=== PATIENT | female | born 1940 | race Caucasian/White ===

== ENCOUNTER → 2019-12-01 15:52 | Outpatient (BNVA) | payer MEDICARE, OTHER, SELFPAY | PROVIDERS: Family Provider Family Medicine; PCP Family Medicine; Visit Provider Family Medicine | DX: E78.00 Pure hypercholesterolemia, unspecified (principal); I10 Essential (primary) hypertension; I48.20 Chronic atrial fibrillation, unspecified; Z00.00 Encounter for general adult medical examination without abnormal findings | CPT/HCPCS: 80053; 80061; 85025 ==

== ENCOUNTER 2020-10-02 00:35 | Emergency (ER) | payer MEDICARE, OTHER, SELFPAY ==
[2020-10-02] VITALS (9 sets, daily range): BP systolic 140–178; BP diastolic 68–98; PULSE 90–149; RESP 17–18; TEMP 36.3–36.7; O2SAT 91–100; BMI 51.9
--- NOTE | 2020-10-02 01:24 | XRR_ITS ---
PROCEDURE INFORMATION: Exam: XR Chest Exam date and time: 10/02/2020 1:28 AM Age: 79 years old Clinical indication: Pain; Patient HX: Palpitations. History of afib. TECHNIQUE: Imaging protocol: XR of the chest. Views: 1 view. COMPARISON: CR Chest 1 [place] [id number] 01/25/2018 12:46 AM FINDINGS: Lungs: Unremarkable. No consolidation. Pleural spaces: Unremarkable. No pleural effusion. No pneumothorax. Heart/Mediastinum: There is mild cardiomegaly. Bones/joints: Unremarkable. XR/XR chest 1V portable [id number] IMPRESSION: Mild cardiomegaly.
[2020-10-02] MEDS: metoprolol tartrate 1 mg/1 mL SDV 5 mL 5 MG IV (01:31)
[2020-10-02 01:35] LABS: Basophils % 0.4 %; Eosinophils # 0.4 10^3/uL (0.0-0.8); Eosinophils % 4.8 %; Hematocrit 39.3 % (37.0-47.0); Hemoglobin 12.2 g/dL (11.5-15.3); Lymphocytes # 2.6 10^3/uL (0.8-4.8); Lymphocytes % 33.5 %; Mean Corpuscular Hemoglobin 32.7 pg (28.0-34.0); Mean Corpuscular Volume 105.4 fL (81-99); Mean Platelet Volume 10.7 fL (7.4-10.4); Monocytes # 0.7 10^3/uL (0.2-0.9); Monocytes % 8.6 %; Neutrophils % 52.3 %; Nucleated Red Blood Cells % 0 %; Platelet Count 180 10^3/cmm (130-400); Red Blood Count 3.73 10^6/uL (4.1-5.3); Red Cell Distribution Width 12.8 % (12.1-15.1); White Blood Count 7.7 10^3/uL (4.0-10.0)
[2020-10-02 01:41] LABS: INR 2.72 (0.8-1.2)
[2020-10-02 01:50] LABS: Troponin(5th) Baseline 27 ng/L (0-10)
[2020-10-02 01:57] LABS: Alanine Aminotransferase 17 U/L (0-33); Albumin Level 4.1 g/dL (3.5-5.2); Alkaline Phosphatase 105 IU/L (35-105); Aspartate Amino Transferase 21 U/L (0-32); Blood Urea Nitrogen 29 mg/dL (8-23); Calcium 8.9 mg/dL (8.5-10.5); Carbon Dioxide 25 mmol/L (22-29); Chloride 101 mmol/L (98-107); Creatine Phosphokinase 47 U/L (26-192); Glucose 123 mg/dL (65-115); NT Pro B Type Natriuretic Pept 1243 pg/mL (0-450); Osmolality Calculated 293 mOsm/kg (285-295); Sodium 138 mmol/L (136-145); Total Bilirubin 0.7 mg/dL (0.15-1.2); Total Protein 7.1 g/dL (6.6-8.7)
[2020-10-02 02:28] LABS: Add Urine Microscopic? YES; Bilirubin Urine Neg (Negative); Blood Urine 2+ (Negative); Glucose Urine UA Norm (Normal); Ketones Urine Negative (Negative); Leukocyte Esterase Urine 2+ (Negative); Nitrate Urine Positive (Negative); Protein Urine Neg (Negative); Specific Gravity, Urine 1.015 (1.005-1.030); Urine Appearance SL Hazy (CLEAR); Urine Color Yellow (Yellow); Urobilinogen Urine Norm (Negative); pH Urine 5 (5-7)
[2020-10-02 02:29] LABS: Add Urine Culture? Yes; Bacteria Urine 3+ /hpf; RBC Urine 0-4 /hpf (0-2); WBC Urine 40-55 /hpf (0-5)
[2020-10-02] MEDS: cefTRIAXone 1,000 MG in sodium chloride 0.9% (plus) 50 ML 100 MG IV (03:35)
[2020-10-02] MEDS: metoprolol tartrate 1 mg/1 mL SDV 5 mL 2.5 MG IV (03:35)
[2020-10-02] MEDS: metoprolol tartrate 50 mg Tablet PO (04:54)
--- NOTE | 2020-10-02 17:28 | ED_ITS ---
HPI - Arrhythmia/Palpitations General: Chief Complaint: Arrhythmia/Palpitations Stated Complaint: Afib Problems Time Seen by Provider: 10/02/20 00:55 History of Present Illness: HPI narrative: 79-year-old female with a history of chronic atrial fibrillation. She is anticoagulated. She reports that she has not had an A. fib attack in a long time . She reports that her heart rate had been low, so she had not taken her metoprolol for a day or so. She began to get a fast heart rate, she took her medication without improvement in the palpitations. She denies chest pain. She says she is mildly short of breath and not tolerating exertion well. She denies any fever, cough, other symptoms. She does not believe she has gained any water weight. MD complaint: rapid heart beat and palpitations Onset (ago): day(s) Duration: constant Severity: moderate Context: occurred during rest Arrhythmia history: atrial fibrillation Associated symptoms: Reports short of breath; Deny anxiety, cough, diaphoresis, nausea, pre-syncope, sense of impending doom, syncope or vomiting Review of Systems Const: Denies: diaphoresis Card: Reports: palpitations; Denies: chest pain, syncope or pre-syncope Resp: Reports: dyspnea; Denies: productive cough or non-productive cough GI: Denies: nausea or vomiting : Denies: flank pain or difficulty voiding Neuro: Denies: headache(s) or confusion Psych: Denies: anxiety [facility] ED PFSH: Medical History (Updated 10/02/20 @ 04:36 by Nolberto Chicas DO) Chronic atrial fibrillation Hypercholesteremia Hypertension Social History (Updated 12/01/19 @ 15:00 by Sneha Watson LPN) Smoking and tobacco status: never smoked Alcohol intake: never Physical Exam Const: COMMON NORMALS: no acute distress NUTRITIONAL APPEARANCE: obese ORIENTATION/CONSCIOUSNESS: Yes awake, Yes oriented to person, Yes oriented to place and Yes oriented to time Eye: COMMON NORMALS: EOMs intact bilaterally and conjunctivae normal CONJUNCTIVA: Yes conjunctivae normal Chest: COMMONS NORMALS: normal inspection of the chest Resp: COMMON NORMALS: normal respiratory effort, No use of accessory muscles and clear to auscultation bilaterally AUSCULTATION: clear to auscultation bilaterally Cardio: RATE: tachycardic RHYTHM: abnormal rhythm irregularly irregular GI: COMMON NORMALS: Normal to inspection, nondistended, normoactive bowel sounds present, Soft to palpation and non-tender PALPATION: Yes Soft to palpation Neuro: SENSORIUM/ORIENTATION: Yes oriented to person, Yes oriented to place and Yes oriented to time Course Vital Signs: Vital signs: Vital Signs Temperature 98.0 F 10/02/20 04:58 Pulse Rate 91 10/02/20 04:58 Respiratory Rate 18 10/02/20 04:58 Blood Pressure 178/86 10/02/20 04:58 Pulse Oximetry 97 10/02/20 04:58 MDM - Arrhythmia/Palpitations MDM Narrative: Medical decision making narrative: Heart rate is 1 10-1 40. Atrial fibrillation. No acute ST changes on EKG. Chest x-ray is negative. Other blood work is benign. Her urinalysis shows a urinary tract infection. She is given 1 g of Rocephin in the ER. 1 dose of 5 mg of metoprolol, and then another dose of 2.5 decreased her blood pressure significantly, as she was quite hypertensive on evaluation. It also reduced her rate to the 80s and 90s. She felt much improved. With no elevation in her troponin at 2 hours, she was allowed home. Treatment with antibiotics for UTI. She will continue her metoprolol at 50 mg. Lab Data: Labs: Lab Results 10/01/20 10/01/20 10/01/20 Range/Units 00:50 00:50 00:50 WBC 7.7 (4.0-10.0) 10^3/ uL RBC 3.73 L (4.1-5.3) 10^6/u L Hgb 12.2 (11.5-15.3) g/dL Hct 39.3 (37.0-47.0) % MCV 105.4 H (81-99) fL MCH 32.7 (28.0-34.0) pg MCHC 31.0 (30.0-36.0) g/dL RDW 12.8 (12.1-15.1) % Plt Count 180 (130-400) 10^3/c mm MPV 10.7 H (7.4-10.4) fL Neut % (Auto) 52.3 % Lymph % (Auto) 33.5 % Terrell % (Auto) 8.6 % Eos % (Auto) 4.8 % Baso % (Auto) 0.4 % Neut # (Auto) 4.00 (1.8-7.7) 10^3/u L Lymph # (Auto) 2.6 (0.8-4.8) 10^3/u L Terrell # (Auto) 0.7 (0.2-0.9) 10^3/u L Eos # (Auto) 0.4 (0.0-0.8) 10^3/u L Baso # (Auto) 0.0 (0.0-0.1) 10^3/u L Nucleated RBC % (a uto) 0 % Nucleated RBCs # 0.0 /100WBC PT 29.30 H (12.1-14.9) SECO NDS INR 2.72 H (0.8-1.2) Sodium 138 (136-145) mmol/L Potassium 4.0 (3.5-5.1) mmol/L Chloride 101 (98-107) mmol/L Carbon Dioxide 25 (22-29) mmol/L Anion Gap 16.0 (5-19) BUN 29 H (8-23) mg/dL Creatinine 0.7 (0.5-0.9) mg/dL GFR Calculation Not Reportable Glucose 123 H (65-115) mg/dL Calculated Osmolal ity 293 (285-295) mOsm/k g Calcium 8.9 (8.5-10.5) mg/dL Total Bilirubin 0.7 (0.15-1.2) mg/dL AST 21 (0-32) U/L ALT 17 (0-33) U/L Alkaline Phosphata se 105 (35-105) IU/L Creatine Kinase 47 (26-192) U/L Troponin T Baselin e (0-10) ng/L Troponin T [address] [place] (0-10) ng/L Delta Troponin T (0-10) ABS# NT-Pro-B Natriuret Pep 1243 H (0-450) pg/mL Total Protein 7.1 (6.6-8.7) g/dL Albumin 4.1 (3.5-5.2) g/dL Globulin 3.0 (1.3-4.6) g/dL Urine Color (Yellow) Urine Appearance (CLEAR) Urine pH (5-7) Ur Specific Gravit y (1.005-1.030) Urine Protein (Negative) Urine Glucose (UA) (Normal) Urine Ketones (Negative) Urine Blood (Negative) Urine Nitrate (Negative) Urine Bilirubin (Negative) Urine Urobilinogen (Negative) mg/dL Ur Leukocyte Kelsie ase (Negative) Urine RBC (0-2) /hpf Urine WBC (0-5) /hpf Ur Squamous Epith Cells (0-5) /hpf Amorphous Sediment Urine Bacteria (NONE) /hpf 10/01/20 10/02/20 10/02/20 Range/Units 00:50 02:05 02:48 WBC (4.0-10.0) 10^3/ uL RBC (4.1-5.3) 10^6/u L Hgb (11.5-15.3) g/dL Hct (37.0-47.0) % MCV (81-99) fL MCH (28.0-34.0) pg MCHC (30.0-36.0) g/dL RDW (12.1-15.1) % Plt Count (130-400) 10^3/c mm MPV (7.4-10.4) fL Neut % (Auto) % Lymph % (Auto) % Terrell % (Auto) % Eos % (Auto) % Baso % (Auto) % Neut # (Auto) (1.8-7.7) 10^3/u L Lymph # (Auto) (0.8-4.8) 10^3/u L Terrell # (Auto) (0.2-0.9) 10^3/u L Eos # (Auto) (0.0-0.8) 10^3/u L Baso # (Auto) (0.0-0.1) 10^3/u L Nucleated RBC % (a uto) % Nucleated RBCs # /100WBC PT (12.1-14.9) SECO NDS INR (0.8-1.2) Sodium (136-145) mmol/L Potassium (3.5-5.1) mmol/L Chloride (98-107) mmol/L Carbon Dioxide (22-29) mmol/L Anion Gap (5-19) BUN (8-23) mg/dL Creatinine (0.5-0.9) mg/dL GFR Calculation Glucose (65-115) mg/dL Calculated Osmolal ity (285-295) mOsm/k g Calcium (8.5-10.5) mg/dL Total Bilirubin (0.15-1.2) mg/dL AST (0-32) U/L ALT (0-33) U/L Alkaline Phosphata se (35-105) IU/L Creatine Kinase (26-192) U/L Troponin T Baselin e 27 H (0-10) ng/L Troponin T [address] [place] 30.10 H (0-10) ng/L Delta Troponin T 3.10 (0-10) ABS# NT-Pro-B Natriuret Pep (0-450) pg/mL Total Protein (6.6-8.7) g/dL Albumin (3.5-5.2) g/dL Globulin (1.3-4.6) g/dL Urine Color Yellow (Yellow) Urine Appearance Sl hazy (CLEAR) Urine pH 5 (5-7) Ur Specific Gravit y 1.015 (1.005-1.030) Urine Protein Neg (Negative) Urine Glucose (UA) Norm (Normal) Urine Ketones Negative (Negative) Urine Blood 2+ H (Negative) Urine Nitrate Positive H (Negative) Urine Bilirubin Neg (Negative) Urine Urobilinogen Norm (Negative) mg/dL Ur Leukocyte Kelsie ase 2+ H (Negative) Urine RBC 0-4 H (0-2) /hpf Urine WBC 40-55 H (0-5) /hpf Ur Squamous Epith Cells 5-10 H (0-5) /hpf Amorphous Sediment Not Reportable Urine Bacteria 3+ H (NONE) /hpf Discharge Plan Discharge Patient Disposition: Home Clinical Impression: Atrial fibrillation Qualifiers: Atrial fibrillation type: unspecified chronic Qualified Code(s): I48.20 - Chronic atrial fibrillation, unspecified Urinary tract infection Qualifiers: Urinary tract infection type: acute cystitis Hematuria presence: without hematuria Qualified Code(s): N30.00 - Acute cystitis without hematuria Condition: Stable Prescriptions: New cefdinir 300 mg capsule 300 mg PO BID 7 Days Qty: 14 RF: 0 No Action warfarin 4 mg tablet 4 mg PO DAILY Qty: 30 RF: 0 warfarin 3 mg tablet 3 mg PO DAILY Qty: 90 RF: 3 furosemide 20 mg tablet 20 mg PO DAILY PRN (Reason: edema) Qty: 30 RF: 0 metoprolol tartrate 50 mg tablet 50 mg PO BID Qty: 180 RF: 1 montelukast [Singulair] 10 mg tablet 10 mg PO DAILY Qty: 90 RF: 1 losartan 50 mg tablet 50 mg PO QDAY 90 Days Qty: 90 RF: 3 tramadol 50 mg tablet 50 mg PO TID PRN (Reason: pain) 30 Days Qty: 90 RF: 5 atorvastatin 20 mg tablet See Rx Instructions .ROUTE .COMPLEX Qty: 90 RF: 1 Discharge Orders: Discharge ED (Routine); Ordered 10/02/20 Ordered By: Nolberto Chicas Referrals: Princess Grande MD [Primary Care Provider] - 4-7 days Discharge Diet: Usual diet Discharge Activity: Increase activity as tolerated Patient Instructions: Atrial Fibrillation (ED), Urinary Tract Infection in Women (ED) Activity Restrictions/Additional Instructions: Resume and continue your metoprolol 50 mg twice daily. Return for chest discomfort, worsening palpitations, fever greater than 100 despite 1-2 doses of antibiotics, shortness of breath, mental status changes, any other concerning symptoms. Antibiotics as directed. Coding Level of Care Code ED Regulatory Affairs Consultant for Carlyn Villagomez
== END 2020-10-02 05:03 | disposition home or self-care (01) ==
PROVIDERS: Emergency Provider Emergency Medicine; PCP Family Medicine
DX: I48.20 Chronic atrial fibrillation, unspecified (principal); N30.00 Acute cystitis without hematuria; Z79.01 Long term (current) use of anticoagulants; Z79.891 Long term (current) use of opiate analgesic; I10 Essential (primary) hypertension
CPT/HCPCS: 71045; 80053; 81001; 82550; 83880; 84484; 85025; 85610; 87077; 87086; 87186; 96365; 96375; 96376; 99284; J0696; J3490

== ENCOUNTER 2020-10-28 11:21 | Emergency (ER) | payer MEDICARE, OTHER, SELFPAY ==
--- NOTE | 2020-10-28 11:34 | ECG_ITS ---
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 Measurements Intervals [place] Rate: 52 P: PA: QRS: 21 QRSD: 108 T: 57 QT: 444 QTc: 414 Interpretive Statements SUPRAVENTRICULAR BRADYCARDIA MODERATE ST DEPRESSION [0.05+ mV ST DEPRESSION] Compared to ECG 01/25/2018 00:27:17 ST (T wave) deviation now present Sinus tachycardia no longer present Intraventricular conduction delay no longer present Electronically Signed On 10-28-2020 20:29:41 CDT by Marc Greer M.D. [id number] f
[2020-10-28 11:38] VITALS: BP 186/113; PULSE 55; RESP 16; TEMP 36.8; O2SAT 94; BMI 51.2
--- NOTE | 2020-10-28 12:15 | XR_ITS ---
WS: [id number] Portable AP upright chest, 10/28/2020 Clinical Data: fatigue, bradycardia Comparison: Portable chest, 10/02/2020. Findings: No nodules, masses or effusions are seen. The heart is enlarged. The pulmonary vascularity is not increased. No pneumonia or pneumothorax is seen. There are monitor leads on the chest wall. XR/XR chest 1V portable [id number] Impression: Cardiomegaly.
--- NOTE | 2020-10-28 12:25 | ED_ITS ---
HPI - Arrhythmia/Palpitations General: Chief Complaint: Arrhythmia/Palpitations Stated Complaint: Possilble Low Heart Rate Time Seen by Provider: 10/28/20 12:00 PFSH ED PFSH: Medical History (Updated 10/10/20 @ 00:01 by ) Chronic atrial fibrillation Hypercholesteremia Hypertension Social History (Updated 12/01/19 @ 15:00 by Sneha Watson LPN) Smoking and tobacco status: never smoked Alcohol intake: never Course Vital Signs: Vital signs: Vital Signs Temperature 98.2 F 10/28/20 11:38 Pulse Rate 52 L 10/28/20 13:15 Respiratory Rate 18 10/28/20 13:15 Blood Pressure 166/81 10/28/20 13:15 Pulse Oximetry 98 10/28/20 13:15 MDM - Arrhythmia/Palpitations Lab Data: Labs: Lab Results 10/28/20 Range/Units 13:00 WBC 7.7 (4.0-10.0) 10^3/ uL RBC 3.81 L (4.1-5.3) 10^6/u L Hgb 12.5 (11.5-15.3) g/dL Hct 40.4 (37.0-47.0) % MCV 106.0 H (81-99) fL MCH 32.8 (28.0-34.0) pg MCHC 30.9 (30.0-36.0) g/dL RDW 12.9 (12.1-15.1) % Plt Count 175 (130-400) 10^3/c mm MPV 9.8 (7.4-10.4) fL Neut % (Auto) 57.6 % Lymph % (Auto) 29.1 % [place] % (Auto) 8.3 % Eos % (Auto) 4.4 % Baso % (Auto) 0.3 % Neut # (Auto) 4.45 (1.8-7.7) 10^3/u L Lymph # (Auto) 2.3 (0.8-4.8) 10^3/u L [place] # (Auto) 0.6 (0.2-0.9) 10^3/u L Eos # (Auto) 0.3 (0.0-0.8) 10^3/u L Baso # (Auto) 0.0 (0.0-0.1) 10^3/u L Nucleated RBC % (a uto) 0 % Nucleated RBCs # 0.0 /100WBC Imaging Data^: CXR: Radiologist's impression: [id number] [place], [place] [id number] ReportSigned Patient: Yadira Krishnan AUnit #: [id number]: 1940cct#:[id number]/Sex: 79 / FADM Date: 10/28/20Loc: ERRoom/Bed:Attending Dr: Ordering Provider/Ordering MD: Lashay Moss Date of Service: 10/28/20 Procedure(s): XR chest 1V portable [id number] Accession Number(s): [id number] Report Number: [id number] WS: [id number] Portable AP upright chest, 10/28/2020 Clinical Data: fatigue, bradycardia Comparison: Portable chest, 10/02/2020. Findings: No nodules, masses or effusions are seen. The heart is enlarged. The pulmonary vascularity is not increased. No pneumonia or pneumothorax is seen. There are monitor leads on the chest wall. XR/XR chest 1V portable [id number] Impression: Cardiomegaly. Dictated By:Cyn Lubin MDSigned By:Cyn Lubin MDSigned Date/Time:10/28/20 1258DD/ 1257 Discharge Plan Discharge Prescriptions: No Action warfarin 4 mg tablet 4 mg PO DAILY Qty: 30 RF: 0 furosemide 20 mg tablet 20 mg PO DAILY PRN (Reason: edema) Qty: 30 RF: 0 losartan 50 mg tablet 50 mg PO QDAY 90 Days Qty: 90 RF: 3 tramadol 50 mg tablet 50 mg PO TID PRN (Reason: pain) 30 Days Qty: 90 RF: 5 atorvastatin 20 mg tablet See Rx Instructions .ROUTE .COMPLEX Qty: 90 RF: 1 warfarin 3 mg tablet See Rx Instructions .ROUTE .COMPLEX Qty: 90 RF: 2 metoprolol tartrate 50 mg tablet See Rx Instructions .ROUTE .COMPLEX Qty: 180 RF: 0 montelukast [Singulair] 10 mg tablet 10 mg PO DAILY Qty: 90 RF: 3 Coding Level of Care Code ED Clinical Project Coordinator for Chg Fwd
[2020-10-28 13:08] LABS: Basophils % 0.3 %; Eosinophils # 0.3 10^3/uL (0.0-0.8); Eosinophils % 4.4 %; Hematocrit 40.4 % (37.0-47.0); Hemoglobin 12.5 g/dL (11.5-15.3); Lymphocytes # 2.3 10^3/uL (0.8-4.8); Lymphocytes % 29.1 %; Mean Corpuscular HGB Conc 30.9 g/dL (30.0-36.0); Mean Corpuscular Hemoglobin 32.8 pg (28.0-34.0); Mean Platelet Volume 9.8 fL (7.4-10.4); Monocytes # 0.6 10^3/uL (0.2-0.9); Monocytes % 8.3 %; Neutrophils # 4.45 10^3/uL (1.8-7.7); Neutrophils % 57.6 %; Nucleated Red Blood Cells % 0 %; Platelet Count 175 10^3/cmm (130-400); Red Blood Count 3.81 10^6/uL (4.1-5.3); Red Cell Distribution Width 12.9 % (12.1-15.1); White Blood Count 7.7 10^3/uL (4.0-10.0)
[2020-10-28 13:15] VITALS: BP 166/81; PULSE 52; RESP 18; O2SAT 98
[2020-10-28 13:33] LABS: Alanine Aminotransferase 11 U/L (0-33); Albumin Level 3.9 g/dL (3.5-5.2); Alkaline Phosphatase 88 IU/L (35-105); Anion Gap 13.4 (5-19); Aspartate Amino Transferase 20 U/L (0-32); Blood Urea Nitrogen 28 mg/dL (8-23); Calcium 9.3 mg/dL (8.5-10.5); Carbon Dioxide 27 mmol/L (22-29); Chloride 99 mmol/L (98-107); Globulin 2.8 g/dL (1.3-4.6); Glucose 128 mg/dL (65-115); Osmolality Calculated 287 mOsm/kg (285-295); Potassium 4.4 mmol/L (3.5-5.1); Sodium 135 mmol/L (136-145); Total Bilirubin 0.4 mg/dL (0.15-1.2); Total Protein 6.7 g/dL (6.6-8.7)
[2020-10-28 13:35] LABS: Troponin(5th) Baseline 18 ng/L (0-10)
--- NOTE | 2020-10-28 13:46 | ED_ITS ---
Documented by User: CASSANDRA Quiñones 10/28/20 17:06 HPI - General Adult General: Chief complaint: Arrhythmia/Palpitations Stated complaint: Possilble Low Heart Rate Time Seen by Provider: 10/28/20 12:00 Source: patient Mode of arrival: ambulatory Limitations: no limitations History of Present Illness: HPI narrative: Patient is an 79-year-old female who presents to ED today with a complaint of fatigue. Patient states she has felt fatigued over the past few days. She has no other complaints. She is not complaining of shortness of breath or difficulty breathing. No chest pain or heart palpitations. Has not had any fevers, chills, body aches. No URI-like symptoms. PMH significant for atrial fibrillation, hypercholesterolemia, hypertension, allergic rhinitis Onset (ago): day(s) Associated symptoms: Deny chest pain, dyspnea, headache(s), nausea, rash, palpitations, syncope or vomiting Treatments prior to arrival: none Review of Systems Const: Reports: fatigue; Denies: fever(s), chills, body aches, change in appetite or change in weight Eyes: Denies: change in vision or blurry vision Card: Denies: chest pain, palpitations, irregular heart rhythm, edema, swelling of feet/ankles, lightheadedness, syncope, pre-syncope, dyspnea on exertion, orthopnea or leg pain with exertion Resp: Denies: dyspnea, productive cough, non-productive cough, wheezing, pain on inspiration, change in phlegm color, hemoptysis or chest congestion GI: Denies: abdominal pain, nausea, vomiting or diarrhea : Denies: flank pain, difficulty voiding, dysuria, urinary frequency, urinary urgency or urinary hesitancy Musc: Denies: neck pain or back pain Skin/Breast: Denies: rash Neuro: Denies: headache(s), numbness in extremities, weakness in extremities or sensory changes PFS ED PFSH: Medical History (Updated 10/28/20 @ 16:56 by CASSANDRA Quiñones) Chronic atrial fibrillation Hypercholesteremia Hypertension Social History (Updated 12/01/19 @ 15:00 by Sneha Watson LPN) Smoking and tobacco status: never smoked Alcohol intake: never Physical Exam Const: COMMON NORMALS: no acute distress, patient oriented x3, no limitations and alert GENERAL APPEARANCE: cooperative NUTRITIONAL APPEARANCE: obese morbidly obese ORIENTATION/CONSCIOUSNESS: Yes awake, Yes oriented to person, Yes oriented to place and Yes oriented to time HENMT: COMMON NORMALS: normocephalic and atraumatic HEAD & SCALP: normocephalic and atraumatic Resp: COMMON NORMALS: normal respiratory effort and clear to auscultation bilaterally AUSCULTATION: clear to auscultation bilaterally Cardio: COMMON NORMALS: regular rhythm RATE: bradycardic RHYTHM: regular rhythm GI: COMMON NORMALS: Normal to inspection, nondistended, normoactive bowel sounds present, Soft to palpation, non-tender, No hepatosplenomegaly present and no masses PALPATION: Yes Soft to palpation and Yes No hepatosplenomegaly present Extremity: COMMON NORMALS: full ROM, capillary refill normal and no calf tenderness GENERAL: Yes edema Neuro: COMMON NORMALS: patient oriented x3, moves all extremities, no focal motor deficits and no sensory deficits noted SENSORIUM/ORIENTATION: Yes alert, Yes oriented to person, Yes oriented to place and Yes oriented to time Skin: NARRATIVE SKIN EXAM: bilateral LE chronic skin changes that patient states are old scars from previously using a heating pad that caused blisters Course Vital Signs: Vital signs: Vital Signs Temperature 98.2 F 10/28/20 11:38 Pulse Rate 52 L 10/28/20 17:37 Respiratory Rate 18 10/28/20 17:37 Blood Pressure 161/72 10/28/20 17:37 Pulse Oximetry 96 10/28/20 17:37 MDM - General Adult MDM Narrative: Medical decision making narrative: Patient is an 79-year-old here with complaints of fatigue. EKG showing bradycardia in the 40s-50s. She does not complain of lightheadedness or dizziness. Vital signs are stable. Initial troponin is 18 with a delta of 4. Remainder of work-up is unremarkable. Spoke with Dr. Ambriz who also reviewed patient's EKGs. Patient is wanting to go home at this time. We will decrease her metoprolol to QD instead of BID. She was given instructions for Coumadin dosing as she was subtherapeutic with an INR of 1.25. Case management will set her up with a tank wagon operator. Strict return to ED precautions given. Lab Data: Labs: Lab Results 10/28/20 10/28/20 10/28/20 Range/Units 13:00 13:00 13:00 WBC 7.7 (4.0-10.0) 10^3/ uL RBC 3.81 L (4.1-5.3) 10^6/u L Hgb 12.5 (11.5-15.3) g/dL Hct 40.4 (37.0-47.0) % MCV 106.0 H (81-99) fL MCH 32.8 (28.0-34.0) pg MCHC 30.9 (30.0-36.0) g/dL RDW 12.9 (12.1-15.1) % Plt Count 175 (130-400) 10^3/c mm MPV 9.8 (7.4-10.4) fL Neut % (Auto) 57.6 % Lymph % (Auto) 29.1 % [place] % (Auto) 8.3 % Eos % (Auto) 4.4 % Baso % (Auto) 0.3 % Neut # (Auto) 4.45 (1.8-7.7) 10^3/u L Lymph # (Auto) 2.3 (0.8-4.8) 10^3/u L [place] # (Auto) 0.6 (0.2-0.9) 10^3/u L Eos # (Auto) 0.3 (0.0-0.8) 10^3/u L Baso # (Auto) 0.0 (0.0-0.1) 10^3/u L Nucleated RBC % (a uto) 0 % Nucleated RBCs # 0.0 /100WBC PT (12.1-14.9) SECO NDS INR (0.8-1.2) Sodium 135 L (136-145) mmol/L Potassium 4.4 (3.5-5.1) mmol/L Chloride 99 (98-107) mmol/L Carbon Dioxide 27 (22-29) mmol/L Anion Gap 13.4 (5-19) BUN 28 H (8-23) mg/dL Creatinine 1.0 H (0.5-0.9) mg/dL GFR Calculation Not Reportable Glucose 128 H (65-115) mg/dL Calculated Osmolal ity 287 (285-295) mOsm/k g Calcium 9.3 (8.5-10.5) mg/dL Total Bilirubin 0.4 (0.15-1.2) mg/dL AST 20 (0-32) U/L ALT 11 (0-33) U/L Alkaline Phosphata se 88 (35-105) IU/L Troponin T Baselin e 18 H (0-10) ng/L Troponin T [address] [place] (0-10) ng/L Delta Troponin T (0-10) ABS# NT-Pro-B Natriuret Pep (0-450) pg/mL Total Protein 6.7 (6.6-8.7) g/dL Albumin 3.9 (3.5-5.2) g/dL Globulin 2.8 (1.3-4.6) g/dL Urine Color (Yellow) Urine Appearance (CLEAR) Urine pH (5-7) Ur Specific Gravit y (1.005-1.030) Urine Protein (Negative) Urine Glucose (UA) (Normal) Urine Ketones (Negative) Urine Blood (Negative) Urine Nitrate (Negative) Urine Bilirubin (Negative) Urine Urobilinogen (Negative) mg/dL Ur Leukocyte Kelsie ase (Negative) 10/28/20 10/28/20 10/28/20 Range/Units 13:00 13:20 14:55 WBC (4.0-10.0) 10^3/ uL RBC (4.1-5.3) 10^6/u L Hgb (11.5-15.3) g/dL Hct (37.0-47.0) % MCV (81-99) fL MCH (28.0-34.0) pg MCHC (30.0-36.0) g/dL RDW (12.1-15.1) % Plt Count (130-400) 10^3/c mm MPV (7.4-10.4) fL Neut % (Auto) % Lymph % (Auto) % [place] % (Auto) % Eos % (Auto) % Baso % (Auto) % Neut # (Auto) (1.8-7.7) 10^3/u L Lymph # (Auto) (0.8-4.8) 10^3/u L [place] # (Auto) (0.2-0.9) 10^3/u L Eos # (Auto) (0.0-0.8) 10^3/u L Baso # (Auto) (0.0-0.1) 10^3/u L Nucleated RBC % (a uto) % Nucleated RBCs # /100WBC PT 16.10 H (12.1-14.9) SECO NDS INR 1.25 H (0.8-1.2) Sodium (136-145) mmol/L Potassium (3.5-5.1) mmol/L Chloride (98-107) mmol/L Carbon Dioxide (22-29) mmol/L Anion Gap (5-19) BUN (8-23) mg/dL Creatinine (0.5-0.9) mg/dL GFR Calculation Glucose (65-115) mg/dL Calculated Osmolal ity (285-295) mOsm/k g Calcium (8.5-10.5) mg/dL Total Bilirubin (0.15-1.2) mg/dL AST (0-32) U/L ALT (0-33) U/L Alkaline Phosphata se (35-105) IU/L Troponin T Baselin e (0-10) ng/L Troponin T [address] [place] (0-10) ng/L Delta Troponin T (0-10) ABS# NT-Pro-B Natriuret Pep 426 (0-450) pg/mL Total Protein (6.6-8.7) g/dL Albumin (3.5-5.2) g/dL Globulin (1.3-4.6) g/dL Urine Color Yellow (Yellow) Urine Appearance Clear (CLEAR) Urine pH 5 (5-7) Ur Specific Gravit y 1.020 (1.005-1.030) Urine Protein Neg (Negative) Urine Glucose (UA) Norm (Normal) Urine Ketones Negative (Negative) Urine Blood Neg (Negative) Urine Nitrate Negative (Negative) Urine Bilirubin Neg (Negative) Urine Urobilinogen Norm (Negative) mg/dL Ur Leukocyte Kelsie ase Negative (Negative) 10/28/20 Range/Units 15:15 WBC (4.0-10.0) 10^3/ uL RBC (4.1-5.3) 10^6/u L Hgb (11.5-15.3) g/dL Hct (37.0-47.0) % MCV (81-99) fL MCH (28.0-34.0) pg MCHC (30.0-36.0) g/dL RDW (12.1-15.1) % Plt Count (130-400) 10^3/c mm MPV (7.4-10.4) fL Neut % (Auto) % Lymph % (Auto) % [place] % (Auto) % Eos % (Auto) % Baso % (Auto) % Neut # (Auto) (1.8-7.7) 10^3/u L Lymph # (Auto) (0.8-4.8) 10^3/u L [place] # (Auto) (0.2-0.9) 10^3/u L Eos # (Auto) (0.0-0.8) 10^3/u L Baso # (Auto) (0.0-0.1) 10^3/u L Nucleated RBC % (a uto) % Nucleated RBCs # /100WBC PT (12.1-14.9) SECO NDS INR (0.8-1.2) Sodium (136-145) mmol/L Potassium (3.5-5.1) mmol/L Chloride (98-107) mmol/L Carbon Dioxide (22-29) mmol/L Anion Gap (5-19) BUN (8-23) mg/dL Creatinine (0.5-0.9) mg/dL GFR Calculation Glucose (65-115) mg/dL Calculated Osmolal ity (285-295) mOsm/k g Calcium (8.5-10.5) mg/dL Total Bilirubin (0.15-1.2) mg/dL AST (0-32) U/L ALT (0-33) U/L Alkaline Phosphata se (35-105) IU/L Troponin T Baselin e (0-10) ng/L Troponin T [address] [place] 22.71 H (0-10) ng/L Delta Troponin T 4.71 (0-10) ABS# NT-Pro-B Natriuret Pep (0-450) pg/mL Total Protein (6.6-8.7) g/dL Albumin (3.5-5.2) g/dL Globulin (1.3-4.6) g/dL Urine Color (Yellow) Urine Appearance (CLEAR) Urine pH (5-7) Ur Specific Gravit y (1.005-1.030) Urine Protein (Negative) Urine Glucose (UA) (Normal) Urine Ketones (Negative) Urine Blood (Negative) Urine Nitrate (Negative) Urine Bilirubin (Negative) Urine Urobilinogen (Negative) mg/dL Ur Leukocyte Kelsie ase (Negative) Discharge Plan Discharge Patient Disposition: Home Clinical Impression: Bradycardia Condition: Stable Prescriptions: No Action furosemide 20 mg tablet 20 mg PO DAILY PRN (Reason: edema) Qty: 30 RF: 0 tramadol 50 mg tablet 50 mg PO TID PRN (Reason: pain) 30 Days Qty: 90 RF: 5 montelukast [Singulair] 10 mg tablet 10 mg PO DAILY Qty: 90 RF: 3 prednisolone acetate 1 % drops,suspension 1 drp ophthalmic (eye) DAILY RF: 0 losartan 50 mg tablet 50 mg PO DAILY RF: 0 atorvastatin 20 mg tablet 20 mg PO Q2D RF: 0 warfarin 3 mg tablet 3 mg PO DAILY RF: 0 metoprolol tartrate 50 mg tablet 50 mg PO BID RF: 0 Discharge Orders: Discharge ED (Routine); Ordered 10/28/20 Ordered By: Lashay Moss Referrals: Princess Grande MD [Primary Care Provider] - Patient Instructions: Bradycardia (ED) Activity Restrictions/Additional Instructions: As we discussed case management should contact you shortly to set you up with a tank wagon operator. In the meantime I want you to start taking your metoprolol once daily instead of twice. Start taking 1.5 tabs of your Coumadin (4.5mg) x 3 days. You may then take your normal 3mg dose. Repeat INR as scheduled. You need to return to the emergency department immediately for worsening fatigue, lightheadedness, dizziness, passing out episodes, chest pain, palpitations, or any other concerns you may have. Coding Level of Care Code ED Inventory Control Planner for Chg Fwd Exam Detailed Documented by User: Rakesh Ambriz MD 10/28/20 18:13 HPI - General Adult General: Chief complaint: Arrhythmia/Palpitations Stated complaint: Possilble Low Heart Rate Time Seen by Provider: 10/28/20 12:00 [facility] ED PFSH: Medical History (Updated 10/28/20 @ 16:56 by CASSANDRA Quiñnoes) Chronic atrial fibrillation Hypercholesteremia Hypertension Social History (Updated 12/01/19 @ 15:00 by Sneha Watson LPN) Smoking and tobacco status: never smoked Alcohol intake: never Course Vital Signs: Vital signs: Vital Signs Temperature 98.2 F 10/28/20 11:38 Pulse Rate 52 L 10/28/20 17:37 Respiratory Rate 18 10/28/20 17:37 Blood Pressure 161/72 10/28/20 17:37 Pulse Oximetry 96 10/28/20 17:37 MDM - General Adult MDM Narrative: Medical decision making narrative: agree with plan, Dr. Ambriz Lab Data: Labs: Lab Results 10/28/20 10/28/20 10/28/20 Range/Units 13:00 13:00 13:00 WBC 7.7 (4.0-10.0) 10^3/ uL RBC 3.81 L (4.1-5.3) 10^6/u L Hgb 12.5 (11.5-15.3) g/dL Hct 40.4 (37.0-47.0) % MCV 106.0 H (81-99) fL MCH 32.8 (28.0-34.0) pg MCHC 30.9 (30.0-36.0) g/dL RDW 12.9 (12.1-15.1) % Plt Count 175 (130-400) 10^3/c mm MPV 9.8 (7.4-10.4) fL Neut % (Auto) 57.6 % Lymph % (Auto) 29.1 % [place] % (Auto) 8.3 % Eos % (Auto) 4.4 % Baso % (Auto) 0.3 % Neut # (Auto) 4.45 (1.8-7.7) 10^3/u L Lymph # (Auto) 2.3 (0.8-4.8) 10^3/u L [place] # (Auto) 0.6 (0.2-0.9) 10^3/u L Eos # (Auto) 0.3 (0.0-0.8) 10^3/u L Baso # (Auto) 0.0 (0.0-0.1) 10^3/u L Nucleated RBC % (a uto) 0 % Nucleated RBCs # 0.0 /100WBC PT (12.1-14.9) SECO NDS INR (0.8-1.2) Sodium 135 L (136-145) mmol/L Potassium 4.4 (3.5-5.1) mmol/L Chloride 99 (98-107) mmol/L Carbon Dioxide 27 (22-29) mmol/L Anion Gap 13.4 (5-19) BUN 28 H (8-23) mg/dL Creatinine 1.0 H (0.5-0.9) mg/dL GFR Calculation Not Reportable Glucose 128 H (65-115) mg/dL Calculated Osmolal ity 287 (285-295) mOsm/k g Calcium 9.3 (8.5-10.5) mg/dL Total Bilirubin 0.4 (0.15-1.2) mg/dL AST 20 (0-32) U/L ALT 11 (0-33) U/L Alkaline Phosphata se 88 (35-105) IU/L Troponin T Baselin e 18 H (0-10) ng/L Troponin T [address] [place] (0-10) ng/L Delta Troponin T (0-10) ABS# NT-Pro-B Natriuret Pep (0-450) pg/mL Total Protein 6.7 (6.6-8.7) g/dL Albumin 3.9 (3.5-5.2) g/dL Globulin 2.8 (1.3-4.6) g/dL Urine Color (Yellow) Urine Appearance (CLEAR) Urine pH (5-7) Ur Specific Gravit y (1.005-1.030) Urine Protein (Negative) Urine Glucose (UA) (Normal) Urine Ketones (Negative) Urine Blood (Negative) Urine Nitrate (Negative) Urine Bilirubin (Negative) Urine Urobilinogen (Negative) mg/dL Ur Leukocyte Kelsie ase (Negative) 10/28/20 10/28/20 10/28/20 Range/Units 13:00 13:20 14:55 WBC (4.0-10.0) 10^3/ uL RBC (4.1-5.3) 10^6/u L Hgb (11.5-15.3) g/dL Hct (37.0-47.0) % MCV (81-99) fL MCH (28.0-34.0) pg MCHC (30.0-36.0) g/dL RDW (12.1-15.1) % Plt Count (130-400) 10^3/c mm MPV (7.4-10.4) fL Neut % (Auto) % Lymph % (Auto) % [place] % (Auto) % Eos % (Auto) % Baso % (Auto) % Neut # (Auto) (1.8-7.7) 10^3/u L Lymph # (Auto) (0.8-4.8) 10^3/u L [place] # (Auto) (0.2-0.9) 10^3/u L Eos # (Auto) (0.0-0.8) 10^3/u L Baso # (Auto) (0.0-0.1) 10^3/u L Nucleated RBC % (a uto) % Nucleated RBCs # /100WBC PT 16.10 H (12.1-14.9) SECO NDS INR 1.25 H (0.8-1.2) Sodium (136-145) mmol/L Potassium (3.5-5.1) mmol/L Chloride (98-107) mmol/L Carbon Dioxide (22-29) mmol/L Anion Gap (5-19) BUN (8-23) mg/dL Creatinine (0.5-0.9) mg/dL GFR Calculation Glucose (65-115) mg/dL Calculated Osmolal ity (285-295) mOsm/k g Calcium (8.5-10.5) mg/dL Total Bilirubin (0.15-1.2) mg/dL AST (0-32) U/L ALT (0-33) U/L Alkaline Phosphata se (35-105) IU/L Troponin T Baselin e (0-10) ng/L Troponin T [address] [place] (0-10) ng/L Delta Troponin T (0-10) ABS# NT-Pro-B Natriuret Pep 426 (0-450) pg/mL Total Protein (6.6-8.7) g/dL Albumin (3.5-5.2) g/dL Globulin (1.3-4.6) g/dL Urine Color Yellow (Yellow) Urine Appearance Clear (CLEAR) Urine pH 5 (5-7) Ur Specific Gravit y 1.020 (1.005-1.030) Urine Protein Neg (Negative) Urine Glucose (UA) Norm (Normal) Urine Ketones Negative (Negative) Urine Blood Neg (Negative) Urine Nitrate Negative (Negative) Urine Bilirubin Neg (Negative) Urine Urobilinogen Norm (Negative) mg/dL Ur Leukocyte Kelsie ase Negative (Negative) 10/28/20 Range/Units 15:15 WBC (4.0-10.0) 10^3/ uL RBC (4.1-5.3) 10^6/u L Hgb (11.5-15.3) g/dL Hct (37.0-47.0) % MCV (81-99) fL MCH (28.0-34.0) pg MCHC (30.0-36.0) g/dL RDW (12.1-15.1) % Plt Count (130-400) 10^3/c mm MPV (7.4-10.4) fL Neut % (Auto) % Lymph % (Auto) % [place] % (Auto) % Eos % (Auto) % Baso % (Auto) % Neut # (Auto) (1.8-7.7) 10^3/u L Lymph # (Auto) (0.8-4.8) 10^3/u L [place] # (Auto) (0.2-0.9) 10^3/u L Eos # (Auto) (0.0-0.8) 10^3/u L Baso # (Auto) (0.0-0.1) 10^3/u L Nucleated RBC % (a uto) % Nucleated RBCs # /100WBC PT (12.1-14.9) SECO NDS INR (0.8-1.2) Sodium (136-145) mmol/L Potassium (3.5-5.1) mmol/L Chloride (98-107) mmol/L Carbon Dioxide (22-29) mmol/L Anion Gap (5-19) BUN (8-23) mg/dL Creatinine (0.5-0.9) mg/dL GFR Calculation Glucose (65-115) mg/dL Calculated Osmolal ity (285-295) mOsm/k g Calcium (8.5-10.5) mg/dL Total Bilirubin (0.15-1.2) mg/dL AST (0-32) U/L ALT (0-33) U/L Alkaline Phosphata se (35-105) IU/L Troponin T Baselin e (0-10) ng/L Troponin T [address] [place] 22.71 H (0-10) ng/L Delta Troponin T 4.71 (0-10) ABS# NT-Pro-B Natriuret Pep (0-450) pg/mL Total Protein (6.6-8.7) g/dL Albumin (3.5-5.2) g/dL Globulin (1.3-4.6) g/dL Urine Color (Yellow) Urine Appearance (CLEAR) Urine pH (5-7) Ur Specific Gravit y (1.005-1.030) Urine Protein (Negative) Urine Glucose (UA) (Normal) Urine Ketones (Negative) Urine Blood (Negative) Urine Nitrate (Negative) Urine Bilirubin (Negative) Urine Urobilinogen (Negative) mg/dL Ur Leukocyte Kelsie ase (Negative) Discharge Plan Discharge Patient Disposition: Home Clinical Impression: Bradycardia Condition: Stable Prescriptions: No Action furosemide 20 mg tablet 20 mg PO DAILY PRN (Reason: edema) Qty: 30 RF: 0 tramadol 50 mg tablet 50 mg PO TID PRN (Reason: pain) 30 Days Qty: 90 RF: 5 montelukast [Singulair] 10 mg tablet 10 mg PO DAILY Qty: 90 RF: 3 prednisolone acetate 1 % drops,suspension 1 drp ophthalmic (eye) DAILY RF: 0 losartan 50 mg tablet 50 mg PO DAILY RF: 0 atorvastatin 20 mg tablet 20 mg PO Q2D RF: 0 warfarin 3 mg tablet 3 mg PO DAILY RF: 0 metoprolol tartrate 50 mg tablet 50 mg PO BID RF: 0 Discharge Orders: Discharge ED (Routine); Ordered 10/28/20 Ordered By: Lashay Moss Referrals: Princess Grande MD [Primary Care Provider] - Patient Instructions: Bradycardia (ED) Activity Restrictions/Additional Instructions: As we discussed case management should contact you shortly to set you up with a tank wagon operator. In the meantime I want you to start taking your metoprolol once daily instead of twice. Start taking 1.5 tabs of your Coumadin (4.5mg) x 3 days. You may then take your normal 3mg dose. Repeat INR as scheduled. You need to return to the emergency department immediately for worsening fatigue, lightheadedness, dizziness, passing out episodes, chest pain, palpitations, or any other concerns you may have. Coding Level of Care Code ED Inventory Control Planner for Carlyn Villagomez Exam Detailed
[2020-10-28 13:59] VITALS: BP 156/65; PULSE 53; RESP 16; O2SAT 93
[2020-10-28 14:06] LABS: INR 1.25 (0.8-1.2)
--- NOTE | 2020-10-28 14:16 | ECG_ITS ---
[facility] Test Date: 2020-10-28 Pat Name: Yadira Krishnan Department: Room: Gender: Female Production Planning Supervisor: : 1940 Requested By: Lashay Moss Order Number: [id number] Heath MD: Marc Greer M.D. Measurements Intervals [place] Rate: 49 P: MA: QRS: 22 QRSD: 106 T: 58 QT: 462 QTc: 419 Interpretive Statements SUPRAVENTRICULAR BRADYCARDIA MODERATE ST DEPRESSION [0.05+ mV ST DEPRESSION] Compared to ECG 10/28/2020 11:41:25 No significant changes Electronically Signed On 10-28-2020 20:37:41 CDT by Marc Greer M.D. [id number]
[2020-10-28 14:29] LABS: NT Pro B Type Natriuretic Pept 426 pg/mL (0-450)
[2020-10-28 15:08] LABS: Add Urine Microscopic? NO; Charge for UA Resulting for Rev
[2020-10-28 15:13] LABS: Bilirubin Urine Neg (Negative); Blood Urine Neg (Negative); Glucose Urine UA Norm (Normal); Ketones Urine Negative (Negative); Leukocyte Esterase Urine Negative (Negative); Nitrate Urine Negative (Negative); Protein Urine Neg (Negative); Urine Appearance Clear (CLEAR); Urine Color Yellow (Yellow); Urobilinogen Urine Norm (Negative); pH Urine 5 (5-7)
[2020-10-28 16:08] VITALS: PULSE 50; RESP 18; O2SAT 96
[2020-10-28 16:44] LABS: Troponin 5 2HR 22.71 ng/L (0-10); Troponin 5 2HR Delta 4.71 ABS# (0-10)
[2020-10-28 17:37] VITALS: BP 161/72; PULSE 52; RESP 18; O2SAT 96
--- NOTE | 2020-11-03 10:20 | DCPLANNER ---
Addendum entered by Sheri Krishnan 11/04/20 14:06: logistic manager called patient and gave patient the appointment information. Original Note: logistic manager had message to schedule a follow up appointment for patient with [facility]. logistic manager called [facility], spoke with Katharine, gave clinic patients information. A follow up appointment was scheduled for Sunday, November 22, 2020 at 12:[address] Tejeda. logistic manager called phone number [phone], unable to speak with patient at this time, a voicemail was left for patient to return telephonic case manager phone call for appointment information. logistic manager will try to contact patient again.
--- NOTE | 2020-11-25 08:22 | DCPLANNER ---
Patient had a follow up appointment scheduled for 11.22.20 with [facility] - patient did not attend appointment.
== END 2020-10-28 17:30 | disposition home or self-care (01) ==
PROVIDERS: Emergency Provider Physician Assistant; PCP Family Medicine
DX: R00.1 Bradycardia, unspecified (principal); I10 Essential (primary) hypertension; I48.91 Unspecified atrial fibrillation; Z79.01 Long term (current) use of anticoagulants; E78.00 Pure hypercholesterolemia, unspecified
CPT/HCPCS: 71045; 80053; 81003; 83880; 84484; 85025; 85610; 93005; 99284

== ENCOUNTER 2021-01-16 11:00 | Emergency (ER) | payer MEDICARE, OTHER, SELFPAY ==
[2021-01-16 11:16] VITALS: BP 167/70; PULSE 61; RESP 16; TEMP 36.4; O2SAT 97
--- NOTE | 2021-01-16 11:24 | XRR_ITS ---
PROCEDURE INFORMATION: Exam: XR Chest Exam date and time: 01/16/2021 11:24 AM Age: 80 years old Clinical indication: Other: Bradycardia; Additional info: Cough TECHNIQUE: Imaging protocol: XR of the chest. Views: 1 view. COMPARISON: CR XR chest 1V portable [id number] 10/28/2020 12:14 PM FINDINGS: Lungs: Unremarkable. No consolidation. Pleural spaces: Unremarkable. No pleural effusion. No pneumothorax. Heart/Mediastinum: Unremarkable. No cardiomegaly. Bones/joints: Unremarkable. XR/XR chest 1V portable [id number] IMPRESSION: No acute findings.
--- NOTE | 2021-01-16 11:25 | W.ED.CHESTPA ---
HPI - Chest Pain General: Chief Complaint: Chest Pain Stated Complaint: Irregular Heartbeat Time Seen by Provider: 01/16/21 11:22 History of Present Illness: HPI narrative: This patient is a 80-year-old female who presents to the emergency department with a long history of atrial fibrillation. Patient states that she believes her heart is beating too slow. Patient states she has a long history of atrial fibrillation and takes medications to control heart rate. Patient states she did not take any of her medications today. Patient states that her normal rate is around 68-75 on medications to control her rate. Patient states this morning her heart rate was in the 50s. EKG performed at the bedside shows sinus bradycardia heart rate 52. Patient denies chest pain. Will do medical evaluation treat as needed patient states that she does not see cardiology. Patient states that she is followed by family physician advised that he did not feel the need that she needed any cardiology evaluation. At this time for her chronic conditions. complaint: other Onset (ago): hour(s) Onset: during rest Associated symptoms: Deny abdominal pain, dyspnea, fever(s), nausea, palpitations or vomiting Review of Systems General: Reports: 10 or more systems reviewed and unremarkable except in HPI and below Const: Denies: fever(s), chills, body aches or fatigue Eyes: Denies: change in vision or blurry vision ENMT: Denies: throat pain, hoarseness or mouth pain Card: Reports: irregular heart rhythm and swelling of feet/ankles; Denies: chest pain, palpitations, edema or lightheadedness Resp: Denies: dyspnea, productive cough, non-productive cough, wheezing or pain on inspiration GI: Denies: abdominal pain, nausea or vomiting : Denies: flank pain, difficulty voiding, dysuria, urinary frequency, urinary urgency or urinary hesitancy Musc: Denies: neck pain, back pain, extremity pain, extremity swelling, joint pain, joint swelling, joint redness, joint warmth or limited range of motion Skin/Breast: Denies: rash, pruritus, erythema or skin tenderness Neuro: Denies: headache(s), numbness in extremities or weakness in extremities Psych: Denies: anxiety or depression PFS ED PFSH: Medical History Chronic atrial fibrillation Hypercholesteremia Hypertension Social History Smoking and tobacco status: never smoked Alcohol intake: never Physical Exam Const: COMMON NORMALS: no acute distress, average body habitus, patient oriented x3, no limitations, healthy appearing, alert and well nourished HENMT: COMMON NORMALS: normocephalic, atraumatic, hearing grossly normal bilaterally, external ears normal, EAC's normal, TM's normal bilaterally, Normal external nose present, Normal nasal mucous membranes and turbinates present, moist oral mucous membranes, oropharynx normal, dentition normal and gingiva normal HEAD & SCALP: normocephalic and atraumatic NOSE: Normal external nose present and Normal nasal mucous membranes and turbinates present EXTERNAL EAR: Yes external ears normal EXTERNAL AUDITORY CANAL: EAC's normal TYMPANIC MEMBRANE: TM's normal bilaterally Neck/C-Spine: COMMON NORMALS: full ROM, no lymphadenopathy, supple, no meningeal signs, no JVD, Thyroid normal and No carotid bruits THYROID: Thyroid normal Chest: COMMONS NORMALS: normal inspection of the chest, normal palpation of entire chest wall, normal inspection of the breasts and normal palpation of the breasts Breast/axilla inspection: Yes normal inspection of the breasts BREAST/AXILLA PALPATION: Yes normal palpation of the breasts Resp: COMMON NORMALS: normal respiratory effort, No retractions, No use of accessory muscles, clear to auscultation bilaterally and percussion normal AUSCULTATION: clear to auscultation bilaterally PERCUSSION: percussion normal Cardio: COMMON NORMALS: no JVD, regular rhythm, S1 normal heart sound present, S2 normal heart sound present, No gallops present (Cardio), No clicks present (Cardio), No murmurs present (Cardio), No rub (Cardio) and Peripheral pulses 2+ throughout RATE: bradycardic RHYTHM: regular rhythm HEART SOUNDS: S1 normal heart sound present and S2 normal heart sound present PERIPHERAL PULSES: Peripheral pulses 2+ throughout GI: COMMON NORMALS: Normal to inspection, nondistended, normoactive bowel sounds present, Soft to palpation, non-tender, No hepatosplenomegaly present, no masses and no bruits PALPATION: Yes Soft to palpation and Yes No hepatosplenomegaly present Back/Pelvis: COMMON NORMALS: thoracic and lumbar spine normal to inspection, no thoracic nor lumbar tenderness, thoraco-lumbar ROM normal and straight leg raise negative bilaterally Extremity: COMMON NORMALS: normal to inspection, full ROM, capillary refill normal, no joint enlargement, no clubbing, cyanosis or edema, no calf tenderness and no pedal edema Neuro: COMMON NORMALS: patient oriented x3 SENSORIUM/ORIENTATION: Yes alert MENINGEAL SIGNS: Yes no meningeal signs Course Reevaluation(s): Reevaluation #1: Patient heart rate is ranging anywhere from 47 to mid 60s. Patient denies any chest pain or shortness of breath blood pressure has been stable. Blood pressure at this time is 154/73. Patient does chronically take metoprolol 50 mg twice a day but has not taken it today. I did discuss at length with patient about findings and concerns about bradycardia with atrial fibrillation and requested the patient be admitted to the hospital for further evaluation and rule out need for pacemaker. Patient declines admission to the hospital. Had a long conversation and I again recommended the patient stay in the hospital be evaluated by cardiology but the patient again declines states she does not want to stay in the hospital. at the bedside and agrees. I did discuss at length with patient about her medications patient will hold metoprolol and do blood pressure checks twice daily. Patient is to return to the emergency department if she has any significant issues with chest pain low heart rate or syncope. Patient should follow-up with cardiology as instructed call tomorrow for an appointment. Patient states understanding patient will be discharged with family per her request. Time: 13:13 Vital Signs: Vital signs: Vital Signs Temperature 97.5 F L 01/16/21 11:16 Pulse Rate 52 L 01/16/21 12:45 Respiratory Rate 16 01/16/21 12:45 Blood Pressure 161/76 01/16/21 12:45 Pulse Oximetry 95 01/16/21 12:45 MDM - Chest Pain MDM Narrative: Medical decision making narrative: Patient heart rate is ranging anywhere from 47 to mid 60s. Patient denies any chest pain or shortness of breath blood pressure has been stable. Blood pressure at this time is 154/73. Patient does chronically take metoprolol 50 mg twice a day but has not taken it today. I did discuss at length with patient about findings and concerns about bradycardia with atrial fibrillation and requested the patient be admitted to the hospital for further evaluation and rule out need for pacemaker. Patient declines admission to the hospital. Had a long conversation and I again recommended the patient stay in the hospital be evaluated by cardiology but the patient again declines states she does not want to stay in the hospital. at the bedside and agrees. I did discuss at length with patient about her medications patient will hold metoprolol and do blood pressure checks twice daily. Patient is to return to the emergency department if she has any significant issues with chest pain low heart rate or syncope. Patient should follow-up with cardiology as instructed call tomorrow for an appointment. Patient states understanding patient will be discharged with family per her request. Medical Records: Attestation: I reviewed the patient's medical records. Lab Data: Attestation: I reviewed the patient's lab results. Labs: Lab Results 01/16/21 01/16/21 01/16/21 Range/Units 11:31 11:31 11:31 WBC 6.2 (4.0-10.0) 10^3/ uL RBC 3.92 L (4.1-5.3) 10^6/u L Hgb 12.6 (11.5-15.3) g/dL Hct 41.1 (37.0-47.0) % MCV 104.8 H (81-99) fl MCH 32.1 (28.0-34.0) pg MCHC 30.7 (30.0-36.0) g/dL RDW 13.0 (12.1-15.1) % Plt Count 186 (130-400) 10^3/c mm MPV 10.2 (7.4-10.4) fL Neut % (Auto) 40.1 % Lymph % (Auto) 42.9 % [place] % (Auto) 9.6 % Eos % (Auto) 6.8 % Baso % (Auto) 0.3 % Neut # (Auto) 2.46 (1.8-7.7) 10^3/u L Lymph # (Auto) 2.6 (0.8-4.8) 10^3/u L [place] # (Auto) 0.6 (0.2-0.9) 10^3/u L Eos # (Auto) 0.4 (0.0-0.8) 10^3/u L Baso # (Auto) 0.0 (0.0-0.1) 10^3/u L Nucleated RBC % (a uto) 0 % Nucleated RBCs # 0.0 /100WBC PT 24.10 H (12.1-14.9) SECO NDS INR 2.11 H (0.8-1.2) APTT 34.7 (23.9-36.7) SECO NDS Sodium 140 (136-145) mmol/L Potassium 4.2 (3.5-5.1) mmol/L Chloride 102 (98-107) mmol/L Carbon Dioxide 28 (22-29) mmol/L Anion Gap 14.2 (5-19) BUN 24 H (8-23) mg/dL Creatinine 1.1 H (0.5-0.9) mg/dL GFR Calculation Not Reportable Glucose 116 H (65-115) mg/dL Calculated Osmolal ity 295 (285-295) mOsm/k g Calcium 9.5 (8.5-10.5) mg/dL Total Bilirubin 0.3 (0.15-1.2) mg/dL AST 17 (0-32) U/L ALT 11 (0-33) U/L Alkaline Phosphata se 84 (35-105) IU/L Troponin T Baselin e (0-10) ng/L NT-Pro-B Natriuret Pep 420 (0-450) pg/mL Total Protein 6.6 (6.6-8.7) g/dL Albumin 3.8 (3.5-5.2) g/dL Globulin 2.8 (1.3-4.6) g/dL 01/16/21 Range/Units 11:31 WBC (4.0-10.0) 10^3/ uL RBC (4.1-5.3) 10^6/u L Hgb (11.5-15.3) g/dL Hct (37.0-47.0) % MCV (81-99) fl MCH (28.0-34.0) pg MCHC (30.0-36.0) g/dL RDW (12.1-15.1) % Plt Count (130-400) 10^3/c mm MPV (7.4-10.4) fL Neut % (Auto) % Lymph % (Auto) % [place] % (Auto) % Eos % (Auto) % Baso % (Auto) % Neut # (Auto) (1.8-7.7) 10^3/u L Lymph # (Auto) (0.8-4.8) 10^3/u L [place] # (Auto) (0.2-0.9) 10^3/u L Eos # (Auto) (0.0-0.8) 10^3/u L Baso # (Auto) (0.0-0.1) 10^3/u L Nucleated RBC % (a uto) % Nucleated RBCs # /100WBC PT (12.1-14.9) SECO NDS INR (0.8-1.2) APTT (23.9-36.7) SECO NDS Sodium (136-145) mmol/L Potassium (3.5-5.1) mmol/L Chloride (98-107) mmol/L Carbon Dioxide (22-29) mmol/L Anion Gap (5-19) BUN (8-23) mg/dL Creatinine (0.5-0.9) mg/dL GFR Calculation Glucose (65-115) mg/dL Calculated Osmolal ity (285-295) mOsm/k g Calcium (8.5-10.5) mg/dL Total Bilirubin (0.15-1.2) mg/dL AST (0-32) U/L ALT (0-33) U/L Alkaline Phosphata se (35-105) IU/L Troponin T Baselin e 22 H (0-10) ng/L NT-Pro-B Natriuret Pep (0-450) pg/mL Total Protein (6.6-8.7) g/dL Albumin (3.5-5.2) g/dL Globulin (1.3-4.6) g/dL Imaging Data^: CXR: Attestation: I personally reviewed and interpreted this imaging study as follows: Radiologist's impression: Negative for acute findings EKG Data^: EKG 1: Attestation: I personally reviewed and interpreted this EKG as follows: EKG interpretation date: 01/16/21 EKG interpretation time: 11:20 Prior EKG tracings: available for review Interpretation: Atrial fibrillation bradycardia heart rate [address] changes. Discharge Plan Discharge Patient Disposition: Home Clinical Impression: Bradycardia, Chronic atrial fibrillation, Hypertension Condition: Stable Prescriptions: No Action tramadol 50 mg tablet 25 mg PO TID PRN (Reason: pain) 30 Days Qty: 90 RF: 5 furosemide 20 mg tablet 20 mg PO DAILY PRN (Reason: edema) Qty: 30 RF: 0 montelukast [Singulair] 10 mg tablet 10 mg PO DAILY Qty: 90 RF: 3 nitrofurantoin macrocrystal [Macrodantin] 100 mg capsule 100 mg PO BID Qty: 14 RF: 0 metoprolol tartrate 50 mg tablet See Rx Instructions .ROUTE .COMPLEX Qty: 180 RF: 1 prednisolone acetate 1 % drops,suspension 1 drp ophthalmic (eye) DAILY RF: 0 losartan 50 mg tablet 50 mg PO DAILY RF: 0 atorvastatin 20 mg tablet 20 mg PO Q2D RF: 0 warfarin 3 mg tablet 3 mg PO DAILY RF: 0 Discharge Orders: Discharge ED (Routine); Ordered 01/16/21 Ordered By: Armand Maharaj Referrals: Princess Grande MD [Primary Care Provider] - Tristan Adkins MD [Physician] - 1-3 days Discharge Diet: Advance as tolerated Discharge Activity: Resume usual activity Patient Instructions: Opioid Safety Activity Restrictions/Additional Instructions: patient will hold metoprolol and do blood pressure checks twice daily. Patient is to return to the emergency department if she has any significant issues with chest pain low heart rate or syncope. Patient should follow-up with cardiology as instructed call tomorrow for an appointment. Patient states understanding patient will be discharged with family per her request. Coding Level of Care Code ED Insurance Account Executive for Carlyn Fwrachid Exam Comprehensive
[2021-01-16 11:56] LABS: Basophils % 0.3 %; Eosinophils # 0.4 10^3/uL (0.0-0.8); Eosinophils % 6.8 %; Hematocrit 41.1 % (37.0-47.0); Hemoglobin 12.6 g/dL (11.5-15.3); Lymphocytes # 2.6 10^3/uL (0.8-4.8); Lymphocytes % 42.9 %; Mean Corpuscular HGB Conc 30.7 g/dL (30.0-36.0); Mean Corpuscular Hemoglobin 32.1 pg (28.0-34.0); Mean Corpuscular Volume 104.8 fl (81-99); Mean Platelet Volume 10.2 fL (7.4-10.4); Monocytes # 0.6 10^3/uL (0.2-0.9); Monocytes % 9.6 %; Neutrophils # 2.46 10^3/uL (1.8-7.7); Neutrophils % 40.1 %; Nucleated Red Blood Cells % 0 %; Platelet Count 186 10^3/cmm (130-400); Red Blood Count 3.92 10^6/uL (4.1-5.3); White Blood Count 6.2 10^3/uL (4.0-10.0)
[2021-01-16 12:01] VITALS: BP 157/58; PULSE 50; RESP 14; O2SAT 93
[2021-01-16 12:07] LABS: INR 2.11 (0.8-1.2)
[2021-01-16 12:08] LABS: Partial Thromboplastin Time 34.7 SECONDS (23.9-36.7)
[2021-01-16 12:11] LABS: Troponin(5th) Baseline 22 ng/L (0-10)
[2021-01-16 12:24] LABS: Alanine Aminotransferase 11 U/L (0-33); Albumin Level 3.8 g/dL (3.5-5.2); Alkaline Phosphatase 84 IU/L (35-105); Anion Gap 14.2 (5-19); Aspartate Amino Transferase 17 U/L (0-32); Blood Urea Nitrogen 24 mg/dL (8-23); Calcium 9.5 mg/dL (8.5-10.5); Carbon Dioxide 28 mmol/L (22-29); Chloride 102 mmol/L (98-107); Globulin 2.8 g/dL (1.3-4.6); Glucose 116 mg/dL (65-115); NT Pro B Type Natriuretic Pept 420 pg/mL (0-450); Osmolality Calculated 295 mOsm/kg (285-295); Potassium 4.2 mmol/L (3.5-5.1); Sodium 140 mmol/L (136-145); Total Bilirubin 0.3 mg/dL (0.15-1.2); Total Protein 6.6 g/dL (6.6-8.7)
[2021-01-16 12:45] VITALS: BP 161/76; PULSE 52; RESP 16; O2SAT 95
== END 2021-01-16 13:26 | disposition home or self-care (01) ==
PROVIDERS: Emergency Provider Emergency Medicine; PCP Family Medicine
DX: R00.1 Bradycardia, unspecified (principal); I48.20 Chronic atrial fibrillation, unspecified; I10 Essential (primary) hypertension; Z79.01 Long term (current) use of anticoagulants
CPT/HCPCS: 71045; 80053; 83880; 84484; 85025; 85610; 85730; 99283

== ENCOUNTER → 2021-03-31 08:29 | Outpatient (BNVA) | payer MEDICARE, OTHER, SELFPAY | PROVIDERS: PCP Family Medicine; Visit Provider Nurse Practitioner Family | DX: Z20.822 Contact with and (suspected) exposure to COVID-19 (principal); R68.89 Other general symptoms and signs | CPT/HCPCS: 87400; 87635 ==

== ENCOUNTER → 2021-04-01 12:45 | Outpatient (BNVA) | payer MEDICARE, OTHER, SELFPAY | PROVIDERS: PCP Family Medicine; Visit Provider Nurse Practitioner Family | DX: Z20.822 Contact with and (suspected) exposure to COVID-19 (principal); R68.89 Other general symptoms and signs | CPT/HCPCS: 87426 ==

== ENCOUNTER 2021-06-04 04:39 | Emergency (ER) | payer MEDICARE, OTHER, SELFPAY ==
--- NOTE | 2021-06-04 04:48 | XRR_ITS ---
PROCEDURE INFORMATION: Exam: XR Chest Exam date and time: 06/04/2021 4:48 AM Age: 80 years old Clinical indication: Shortness of breath; Patient HX: C/O SOB. History of afib. TECHNIQUE: Imaging protocol: XR of the chest. Views: 1 view. COMPARISON: CR XR chest 1V portable [id number] 01/16/2021 11:42 AM FINDINGS: Lungs: There is mild bronchial wall thickening seen bilaterally. There is a background emphysema and mild pulmonary fibrosis. Pleural spaces: Unremarkable. No pleural effusion. No pneumothorax. Heart/Mediastinum: Cardiac silhouette is mildly prominent. Bones/joints: See Soft tissues finding. Soft tissues: There is a crescentic soft tissue shadow seen along the right paraspinous region . This may represent paravertebral bridging osteophyte although a soft tissue attenuation mass cannot be entirely excluded. Follow-up nonemergent CT evaluation is suggested. XR/XR chest 1V portable [id number] IMPRESSION: 1. There are no acute chest findings. 2. Crescentic soft tissue shadow seen on the right may represent a a right paravertebral bridging osteophyte although a soft tissue attenuation mass cannot be entirely excluded. As such, a follow-up nonemergent CT evaluation of the chest is suggested.
--- NOTE | 2021-06-04 04:48 | ECG_ITS ---
[facility] Test Date: 2021-06-04 Pat Name: Yadira Krishnan Department: Room: Gender: Female Catering Attendant: : 1940 Requested By: Quiana Grimes Order Number: [id number] Heath MD: Candy Tejeda M.D. Measurements Intervals [place] Rate: 50 P: 139 NM: 108 QRS: 14 QRSD: 78 T: 90 QT: 441 QTc: 403 Interpretive Statements SINUS BRADYCARDIA WITH SHORT NM INTERVAL WITH OCCASIONAL SUPRAVENTRICULAR PREMATURE COMPLEXES MODERATE T-WAVE ABNORMALITY, CONSIDER LATERAL ISCHEMIA [-0.1+ mV T-WAVE IN I/aVL/V5/V6] Compared to ECG 10/28/2020 15:06:08 Short NM interval now present T-wave abnormality now present Possible ischemia now present ST (T wave) deviation no longer present Electronically Signed On 06-05-2021 17:01:45 CUSTOMER SERVICES MANAGER by Candy Tejeda M.D. [id number]
--- NOTE | 2021-06-04 04:49 | ED_ITS ---
Documented by User: Quiana Grimes MD 06/04/21 05:06 HPI - SOB/Dyspnea General: Chief Complaint: Shortness of Breath/Dyspnea Stated Complaint: sob Time Seen by Provider: 06/04/21 04:44 Source: patient Mode of arrival: ambulatory Limitations: no limitations History of Present Illness: HPI Narrative: 80-year-old female who has a history of A. fib but states that over the last 2 to 3 days she been having increasing dyspnea especially with exertion. She states she has felt short of breath at rest as well and has had some bradycardia. She denies any chest pain denies any cough or fever denies any worsening proving factors she has had no vomiting or diarrhea. MD elicited complaint: shortness of breath Associated symptoms: Deny abdominal pain, chest pain, fever(s), nausea or vomiting Review of Systems Const: Denies: fever(s), chills, body aches or change in appetite Eyes: Denies: blurry vision or eye discomfort ENMT: Denies: throat pain or dental pain Card: Denies: chest pain Resp: Reports: dyspnea GI: Denies: abdominal pain, nausea, vomiting or diarrhea : Denies: dysuria Musc: Denies: neck pain or back pain Skin/Breast: Denies: rash Neuro: Denies: headache(s) Psych: Denies: depression Edgar/Lymph: Denies: easy bruising All/Imm: Denies: urticaria PFSH ED PFSH: Medical History Chronic atrial fibrillation Hypercholesteremia Hypertension Social History Smoking and tobacco status: never smoked Alcohol intake: never Physical Exam Const: COMMON NORMALS: patient oriented x3 and healthy appearing NUTRITIONAL APPEARANCE: obese HENMT: COMMON NORMALS: normocephalic and atraumatic HEAD & SCALP: normocephalic and atraumatic Eye: COMMON NORMALS: Equal, round and reactive pupils present and EOMs intact bilaterally PUPIL: Yes Equal, round and reactive pupils present Neck/C-Spine: COMMON NORMALS: full ROM and supple Chest: COMMONS NORMALS: normal inspection of the chest and normal palpation of entire chest wall Resp: COMMON NORMALS: normal respiratory effort, No retractions, No use of accessory muscles and clear to auscultation bilaterally AUSCULTATION: clear to auscultation bilaterally Cardio: COMMON NORMALS: regular rate, regular rhythm and No murmurs present (Cardio) RATE: regular rate RHYTHM: regular rhythm GI: COMMON NORMALS: Normal to inspection, nondistended, normoactive bowel sounds present, Soft to palpation, non-tender and no masses PALPATION: Yes Soft to palpation Extremity: COMMON NORMALS: normal to inspection and full ROM Neuro: COMMON NORMALS: patient oriented x3, moves all extremities and no focal motor deficits Psych: COMMON NORMALS: mental status grossly normal, Normal thought process present and cooperative THOUGHT PROCESS: Normal thought process present Skin: COMMON NORMALS: no rashes or lesions noted and no wounds GENERAL SKIN EXAM: no rashes or lesions noted Course Vital Signs: Vital signs: Vital Signs Temperature 98.0 F 06/04/21 04:53 Pulse Rate 44 L 06/04/21 07:43 Respiratory Rate 17 06/04/21 07:43 Blood Pressure 136/70 06/04/21 07:43 Pulse Oximetry 95 06/04/21 07:43 MDM - SOB/Dyspnea Lab Data : 06/04/21 05:19 06/04/21 05:19 Labs/Radiology: Radiology Impressions Chest X-Ray 06/04/21 04:48 IMPRESSION: 1. There are no acute chest findings. 2. Crescentic soft tissue shadow seen on the right may represent a a right paravertebral bridging osteophyte although a soft tissue attenuation mass cannot be entirely excluded. As such, a follow-up nonemergent CT evaluation of the chest is suggested. Laboratory Results WBC 5.5 10^3/uL (4.0-10.0) 06/04/21 05:19 RBC 3.38 10^6/uL (4.1-5.3) L 06/04/21 05:19 Hgb 10.6 g/dL (11.5-15.3) L 06/04/21 05:19 Hct 35.0 % (37.0-47.0) L 06/04/21 05:19 MCV 103.6 fl (81-99) H 06/04/21 05:19 MCH 31.4 pg (28.0-34.0) 06/04/21 05:19 MCHC 30.3 g/dL (30.0-36.0) 06/04/21 05:19 RDW 13.2 % (12.1-15.1) 06/04/21 05:19 Plt Count 190 10^3/cmm (130-400) 06/04/21 05:19 MPV 10.7 fL (7.4-10.4) H 06/04/21 05:19 Neut % (Auto) 44.3 % 06/04/21 05:19 Lymph % (Auto) 37.5 % 06/04/21 05:19 [place] % (Auto) 10.0 % 06/04/21 05:19 Eos % (Auto) 7.1 % 06/04/21 05:19 Baso % (Auto) 0.7 % 06/04/21 05:19 Neut # (Auto) 2.43 10^3/uL (1.8-7.7) 06/04/21 05:19 Lymph # (Auto) 2.1 10^3/uL (0.8-4.8) 06/04/21 05:19 [place] # (Auto) 0.6 10^3/uL (0.2-0.9) 06/04/21 05:19 Eos # (Auto) 0.4 10^3/uL (0.0-0.8) 06/04/21 05:19 Baso # (Auto) 0.0 10^3/uL (0.0-0.1) 06/04/21 05:19 Nucleated RBC % (auto) 0 % 06/04/21 05:19 Nucleated RBCs # 0.0 /100WBC 06/04/21 05:19 PT 29.60 SECONDS (12.1-14.9) H 06/04/21 05:19 INR 2.75 (0.8-1.2) H 06/04/21 05:19 D-Dimer 0.32 ug/mIFEU (0-0.59) 06/04/21 05:19 Sodium 142 mmol/L (136-145) 06/04/21 05:19 Potassium 3.7 mmol/L (3.5-5.1) 06/04/21 05:19 Chloride 104 mmol/L (98-107) 06/04/21 05:19 Carbon Dioxide 25 mmol/L (22-29) 06/04/21 05:19 Anion Gap 16.7 (5-19) 06/04/21 05:19 BUN 19 mg/dL (8-23) 06/04/21 05:19 Creatinine 0.8 mg/dL (0.5-0.9) 06/04/21 05:19 GFR Calculation Not Reportable 06/04/21 05:19 Glucose 152 mg/dL (65-115) H 06/04/21 05:19 Calculated Osmolality 299 mOsm/kg (285-295) H 06/04/21 05:19 Calcium 8.5 mg/dL (8.5-10.5) 06/04/21 05:19 Total Bilirubin 0.3 mg/dL (0.15-1.2) 06/04/21 05:19 AST 20 U/L (0-32) 06/04/21 05:19 ALT 13 U/L (0-33) 06/04/21 05:19 Alkaline Phosphatase 96 IU/L (35-105) 06/04/21 05:19 Troponin T Baseline 23 ng/L (0-10) H 06/04/21 05:19 Troponin T 120 Minute 20.82 ng/L (0-10) H 06/04/21 07:35 Delta Troponin T -2.18 ABS# (0-10) L 06/04/21 07:35 NT-Pro-B Natriuret Pep 2948 pg/mL (0-450) H 06/04/21 05:19 Total Protein 6.0 g/dL (6.6-8.7) L 06/04/21 05:19 Albumin 3.6 g/dL (3.5-5.2) 06/04/21 05:19 Globulin 2.4 g/dL (1.3-4.6) 06/04/21 05:19 Coronavirus 229E (PCR) Not detected (NOT DETECT) 06/04/21 05:23 SARS-CoV-2 (PCR) Not detected (NOT DETECT) 06/04/21 05:23 EKG Data EKG 1: I personally reviewed and interpreted this EKG as follows: EKG Interpretation Date: 06/04/21 EKG interpretation time: 05:03 Interpretation: Bradycardia heart rate [address] or T wave normalities QRS 78 QTC 414 Discharge Plan Discharge Patient Disposition: Home Clinical Impression: Dyspnea, Chronic atrial fibrillation, Hypertension, Morbid obesity Condition: Stable Prescriptions: No Action amoxicillin-pot clavulanate [Augmentin] 875-125 mg tablet 1 tab PO BID 7 Days Qty: 14 0RF furosemide 20 mg tablet 20 mg PO DAILY PRN (Reason: edema) Qty: 30 0RF montelukast [Singulair] 10 mg tablet 10 mg PO DAILY Qty: 90 3RF metoprolol tartrate 50 mg tablet See Rx Instructions .ROUTE .COMPLEX Qty: 180 1RF Dose Instruction: Take 1 tablet by mouth twice daily Rx Instructions: Take 1 tablet by mouth twice daily tramadol 50 mg tablet 25 mg PO TID PRN (Reason: pain) 30 Days Qty: 90 5RF nitrofurantoin macrocrystal [Macrodantin] 100 mg capsule 100 mg PO BID Qty: 14 0RF Rx Instructions: must administer with a meal/food prednisolone acetate 1 % drops,suspension 1 drp ophthalmic (eye) DAILY 0RF Rx Instructions: USE IN RIGHT EYE DAILY losartan 50 mg tablet 50 mg PO DAILY 0RF atorvastatin 20 mg tablet 20 mg PO Q2D 0RF Rx Instructions: DOSE CHANGE warfarin 3 mg tablet 3 mg PO DAILY 0RF Discharge Orders: Discharge ED (Routine); Ordered 06/04/21 Ordered By: Armnado Max Referrals: Princess Grande MD [Primary Care Provider] - Discharge Diet: Usual diet Discharge Activity: Limit activity as instructed Patient Instructions: Opioid Safety Activity Restrictions/Additional Instructions: Case management will call to make arrangements for you to have a Lexiscan sestamibi stress test as well as a 48-hour Holter monitor Sign Out Sign Out Data: Patient Sign Out occurred on 06/04/21 at 06:18. Patient's care was discussed, and care was transferred from to Armando Max DO. Coding Level of Care Code ED Enterprise Resource Planning Consultant for Chg Fwd Exam Comprehensive Documented by User: Armando Max DO 06/04/21 09:06 HPI - SOB/Dyspnea General: Chief Complaint: Shortness of Breath/Dyspnea Stated Complaint: sob Time Seen by Provider: 06/04/21 04:44 [facility] ED PFSH: Medical History Chronic atrial fibrillation Hypercholesteremia Hypertension Social History Smoking and tobacco status: never smoked Alcohol intake: never Course Vital Signs: Vital signs: Vital Signs Temperature 98.0 F 06/04/21 04:53 Pulse Rate 44 L 06/04/21 07:43 Respiratory Rate 17 06/04/21 07:43 Blood Pressure 136/70 06/04/21 07:43 Pulse Oximetry 95 06/04/21 07:43 MDM - SOB/Dyspnea Medical Decision Making Care assumed at change of shift from Dr. Grimes. 2nd troponin trending negative. As she is rather bradycardic she is on metoprolol for A. fib. It is possible that her shortness of breath is from her heart rate suppression with activity she is not able to raise her heart rate and resulting length is short of breath. The other potential would be that she is getting intermittent atrial fibrillation and is not well controlled at times. At this point rather than decrease her metoprolol and run the risk of precipitating A. fib with RVR we will leave her metoprolol the same set her up for a 48-hour Holter monitor to evaluate for intermittent poor rate control also we will get her set up for a Lexiscan sestamibi stress test have her follow-up with Dr. Grande after this is completed. Medical Records I reviewed the patient's medical records. Lab Data I reviewed the patient's lab results. : 06/04/21 05:19 06/04/21 05:19 Labs/Radiology: Radiology Impressions Chest X-Ray 06/04/21 04:48 IMPRESSION: 1. There are no acute chest findings. 2. Crescentic soft tissue shadow seen on the right may represent a a right paravertebral bridging osteophyte although a soft tissue attenuation mass cannot be entirely excluded. As such, a follow-up nonemergent CT evaluation of the chest is suggested. Laboratory Results WBC 5.5 10^3/uL (4.0-10.0) 06/04/21 05:19 RBC 3.38 10^6/uL (4.1-5.3) L 06/04/21 05:19 Hgb 10.6 g/dL (11.5-15.3) L 06/04/21 05:19 Hct 35.0 % (37.0-47.0) L 06/04/21 05:19 MCV 103.6 fl (81-99) H 06/04/21 05:19 MCH 31.4 pg (28.0-34.0) 06/04/21 05:19 MCHC 30.3 g/dL (30.0-36.0) 06/04/21 05:19 RDW 13.2 % (12.1-15.1) 06/04/21 05:19 Plt Count 190 10^3/cmm (130-400) 06/04/21 05:19 MPV 10.7 fL (7.4-10.4) H 06/04/21 05:19 Neut % (Auto) 44.3 % 06/04/21 05:19 Lymph % (Auto) 37.5 % 06/04/21 05:19 [place] % (Auto) 10.0 % 06/04/21 05:19 Eos % (Auto) 7.1 % 06/04/21 05:19 Baso % (Auto) 0.7 % 06/04/21 05:19 Neut # (Auto) 2.43 10^3/uL (1.8-7.7) 06/04/21 05:19 Lymph # (Auto) 2.1 10^3/uL (0.8-4.8) 06/04/21 05:19 [place] # (Auto) 0.6 10^3/uL (0.2-0.9) 06/04/21 05:19 Eos # (Auto) 0.4 10^3/uL (0.0-0.8) 06/04/21 05:19 Baso # (Auto) 0.0 10^3/uL (0.0-0.1) 06/04/21 05:19 Nucleated RBC % (auto) 0 % 06/04/21 05:19 Nucleated RBCs # 0.0 /100WBC 06/04/21 05:19 PT 29.60 SECONDS (12.1-14.9) H 06/04/21 05:19 INR 2.75 (0.8-1.2) H 06/04/21 05:19 D-Dimer 0.32 ug/mIFEU (0-0.59) 06/04/21 05:19 Sodium 142 mmol/L (136-145) 06/04/21 05:19 Potassium 3.7 mmol/L (3.5-5.1) 06/04/21 05:19 Chloride 104 mmol/L (98-107) 06/04/21 05:19 Carbon Dioxide 25 mmol/L (22-29) 06/04/21 05:19 Anion Gap 16.7 (5-19) 06/04/21 05:19 BUN 19 mg/dL (8-23) 06/04/21 05:19 Creatinine 0.8 mg/dL (0.5-0.9) 06/04/21 05:19 GFR Calculation Not Reportable 06/04/21 05:19 Glucose 152 mg/dL (65-115) H 06/04/21 05:19 Calculated Osmolality 299 mOsm/kg (285-295) H 06/04/21 05:19 Calcium 8.5 mg/dL (8.5-10.5) 06/04/21 05:19 Total Bilirubin 0.3 mg/dL (0.15-1.2) 06/04/21 05:19 AST 20 U/L (0-32) 06/04/21 05:19 ALT 13 U/L (0-33) 06/04/21 05:19 Alkaline Phosphatase 96 IU/L (35-105) 06/04/21 05:19 Troponin T Baseline 23 ng/L (0-10) H 06/04/21 05:19 Troponin T 120 Minute 20.82 ng/L (0-10) H 06/04/21 07:35 Delta Troponin T -2.18 ABS# (0-10) L 06/04/21 07:35 NT-Pro-B Natriuret Pep 2948 pg/mL (0-450) H 06/04/21 05:19 Total Protein 6.0 g/dL (6.6-8.7) L 06/04/21 05:19 Albumin 3.6 g/dL (3.5-5.2) 06/04/21 05:19 Globulin 2.4 g/dL (1.3-4.6) 06/04/21 05:19 Coronavirus 229E (PCR) Not detected (NOT DETECT) 06/04/21 05:23 SARS-CoV-2 (PCR) Not detected (NOT DETECT) 06/04/21 05:23 Discharge Plan Discharge Patient Disposition: Home Clinical Impression: Dyspnea, Chronic atrial fibrillation, Hypertension, Morbid obesity Condition: Stable Prescriptions: No Action amoxicillin-pot clavulanate [Augmentin] 875-125 mg tablet 1 tab PO BID 7 Days Qty: 14 0RF furosemide 20 mg tablet 20 mg PO DAILY PRN (Reason: edema) Qty: 30 0RF montelukast [Singulair] 10 mg tablet 10 mg PO DAILY Qty: 90 3RF metoprolol tartrate 50 mg tablet See Rx Instructions .ROUTE .COMPLEX Qty: 180 1RF Dose Instruction: Take 1 tablet by mouth twice daily Rx Instructions: Take 1 tablet by mouth twice daily tramadol 50 mg tablet 25 mg PO TID PRN (Reason: pain) 30 Days Qty: 90 5RF nitrofurantoin macrocrystal [Macrodantin] 100 mg capsule 100 mg PO BID Qty: 14 0RF Rx Instructions: must administer with a meal/food prednisolone acetate 1 % drops,suspension 1 drp ophthalmic (eye) DAILY 0RF Rx Instructions: USE IN RIGHT EYE DAILY losartan 50 mg tablet 50 mg PO DAILY 0RF atorvastatin 20 mg tablet 20 mg PO Q2D 0RF Rx Instructions: DOSE CHANGE warfarin 3 mg tablet 3 mg PO DAILY 0RF Discharge Orders: Discharge ED (Routine); Ordered 06/04/21 Ordered By: Armando Max Referrals: Princess Grande MD [Primary Care Provider] - Discharge Diet: Usual diet Discharge Activity: Limit activity as instructed Patient Instructions: Opioid Safety Activity Restrictions/Additional Instructions: Case management will call to make arrangements for you to have a Lexiscan se stamibi stress test as well as a 48-hour Holter monitor Sign Out Sign Out Data: Patient Sign Out occurred on 06/04/21 at 06:18. Patient's care was discussed, and care was transferred from to Armando Max DO. Coding Level of Care Code ED Enterprise Resource Planning Consultant for g Fwd Exam Comprehensive
[2021-06-04 04:53] VITALS: BP 166/71; PULSE 52; RESP 20; TEMP 36.7; O2SAT 93; BMI 43.9
[2021-06-04 05:29] LABS: Basophils % 0.7 %; Eosinophils # 0.4 10^3/uL (0.0-0.8); Eosinophils % 7.1 %; Hemoglobin 10.6 g/dL (11.5-15.3); Lymphocytes # 2.1 10^3/uL (0.8-4.8); Lymphocytes % 37.5 %; Mean Corpuscular HGB Conc 30.3 g/dL (30.0-36.0); Mean Corpuscular Hemoglobin 31.4 pg (28.0-34.0); Mean Corpuscular Volume 103.6 fl (81-99); Mean Platelet Volume 10.7 fL (7.4-10.4); Monocytes # 0.6 10^3/uL (0.2-0.9); Neutrophils # 2.43 10^3/uL (1.8-7.7); Neutrophils % 44.3 %; Nucleated Red Blood Cells % 0 %; Platelet Count 190 10^3/cmm (130-400); Red Blood Count 3.38 10^6/uL (4.1-5.3); Red Cell Distribution Width 13.2 % (12.1-15.1); White Blood Count 5.5 10^3/uL (4.0-10.0)
[2021-06-04 05:43] LABS: INR 2.75 (0.8-1.2)
[2021-06-04 05:46] LABS: D Dimer 0.32 ug/mIFEU (0-0.59)
[2021-06-04 05:53] LABS: Troponin(5th) Baseline 23 ng/L (0-10)
[2021-06-04 06:01] LABS: Alanine Aminotransferase 13 U/L (0-33); Albumin Level 3.6 g/dL (3.5-5.2); Alkaline Phosphatase 96 IU/L (35-105); Anion Gap 16.7 (5-19); Aspartate Amino Transferase 20 U/L (0-32); Blood Urea Nitrogen 19 mg/dL (8-23); Calcium 8.5 mg/dL (8.5-10.5); Carbon Dioxide 25 mmol/L (22-29); Chloride 104 mmol/L (98-107); Globulin 2.4 g/dL (1.3-4.6); Glucose 152 mg/dL (65-115); NT Pro B Type Natriuretic Pept 2948 pg/mL (0-450); Osmolality Calculated 299 mOsm/kg (285-295); Potassium 3.7 mmol/L (3.5-5.1); Sodium 142 mmol/L (136-145); Total Bilirubin 0.3 mg/dL (0.15-1.2)
[2021-06-04 06:31] VITALS: BP 166/71; PULSE 45; RESP 14; O2SAT 94
[2021-06-04 07:15] VITALS: BP 120/55; PULSE 46; RESP 18; O2SAT 96
[2021-06-04 07:20] LABS: Adenovirus Not Detected (NOT DETECT); Chlamydia Pneumoniae Not Detected (NOT DETECT); Coronavirus 229E,HKU1,NL63,OC4 Not Detected (NOT DETECT); Human Metapneumovirus Not Detected (NOT DETECT); Human Rhinovirus/Enterovirus Not Detected (NOT DETECT); Influenza A Not Detected (NOT DETECT); Influenza A H1 Not Detected (NOT DETECT); Influenza A H1-2009 Not Detected (NOT DETECT); Influenza A H3 Not Detected (NOT DETECT); Influenza B Not Detected (NOT DETECT); Mycoplasma Pneumoniae Not Detected (NOT DETECT); Parainfluenza Virus Type 1 Not Detected (NOT DETECT); Parainfluenza Virus Type 2 Not Detected (NOT DETECT); Parainfluenza Virus Type 3 Not Detected (NOT DETECT); Parainfluenza Virus Type 4 Not Detected (NOT DETECT); Respiratory Syncytial Virus A Not Detected (NOT DETECT); Respiratory Syncytial Virus B Not Detected (NOT DETECT); SARS-COV-2 Not Detected (NOT DETECT)
[2021-06-04 07:43] VITALS: BP 136/70; PULSE 44; RESP 17; O2SAT 95
[2021-06-04 08:24] LABS: Troponin 5 2HR 20.82 ng/L (0-10)
[2021-06-04 08:29] LABS: Troponin 5 2HR Delta -2.18 ABS# (0-10)
[2021-06-04 09:30] VITALS: BP 142/50; PULSE 47; RESP 18; O2SAT 96
--- NOTE | 2021-06-10 10:11 | DCPLANNER ---
pit manager had message to schedule a halter monitor, stress test and a follow up appointment for patient with Dr. Grande. pit manager spoke with Dr. Lupe Hoover nurse. Physician is aware that patient was seen in the ER. pit manager was told that Dr. Grande will order the halter monitor, and patient does not want the stress test scheduled at this time. Physician is following patient, since patient was seen in the ER.
== END 2021-06-04 09:26 | disposition home or self-care (01) ==
PROVIDERS: Emergency Medicine; Emergency Provider Family Medicine; PCP Family Medicine
DX: R06.00 Dyspnea, unspecified (principal); I48.20 Chronic atrial fibrillation, unspecified; I10 Essential (primary) hypertension; E66.01 Morbid (severe) obesity due to excess calories; Z68.41 Body mass index [BMI] 40.0-44.9, adult; Z79.01 Long term (current) use of anticoagulants; Z20.822 Contact with and (suspected) exposure to COVID-19
CPT/HCPCS: 71045; 80053; 83880; 84484; 85025; 85378; 85610; 87635; 93005; 99283

== ENCOUNTER → 2021-06-08 12:28 | Outpatient (BNVA) | payer MEDICARE, OTHER, SELFPAY | PROVIDERS: PCP Family Medicine; Visit Provider Family Medicine | DX: I48.20 Chronic atrial fibrillation, unspecified (principal); D50.9 Iron deficiency anemia, unspecified; E66.01 Morbid (severe) obesity due to excess calories; I50.9 Heart failure, unspecified | CPT/HCPCS: 85018 ==

== ENCOUNTER → 2021-07-05 14:25 | Outpatient (BNVA) | payer MEDICARE, OTHER, SELFPAY | PROVIDERS: PCP Family Medicine; Visit Provider Family Medicine | DX: D64.9 Anemia, unspecified (principal) | CPT/HCPCS: 85025 ==

== ENCOUNTER 2021-07-12 19:50 | Emergency (ER) | payer MEDICARE, OTHER, SELFPAY ==
--- NOTE | 2021-07-12 19:56 | ED_ITS ---
HPI - Arrhythmia/Palpitations General: Chief Complaint: Arrhythmia/Palpitations Stated Complaint: In Afid Time Seen by Provider: 07/12/21 19:56 History of Present Illness: Ms. Krishnan is an 80-year-old lady with significant past medical history of hypertension, hyperlipidemia, chronic atrial fibrillation, CHF who presents emergency department due to racing heart. She reports that symptoms began at about 6:30 PM while at rest without known specific provoking factor. She endorses mild associated chest discomfort primarily between her shoulder blades that is very minimal. Additionally she has had, prior to this incident, episodic rare episodes of short lasted dizziness. She denies any other associated neurologic deficits. She denies infectious symptoms. She has had mildly decreased p.o. intake the past few days. No changes in her medication regimen, she is on anticoagulation. No other specific changes in health, exacerbating, or alleviating factors identified. Onset (ago): hour(s) Duration: constant Severity: moderate Context: occurred during rest Arrhythmia history: atrial fibrillation Review of Systems General: Reports: 10 or more systems reviewed and unremarkable except in HPI and below PFSH ED PFSH: Medical History (Updated 07/14/21 @ 15:42 by Princess Grande MD) Anxiety Bradycardia by electrocardiogram Chronic atrial fibrillation Hypercholesteremia Hypertension Social History Smoking and tobacco status: never smoked Alcohol intake: never Physical Exam Const: COMMON NORMALS: alert GENERAL APPEARANCE: cooperative and well developed HENMT: COMMON NORMALS: normocephalic and atraumatic HEAD & SCALP: normocephalic and atraumatic Eye: COMMON NORMALS: conjunctivae normal CONJUNCTIVA: Yes conjunctivae normal SCLERA: sclerae normal Neck/C-Spine: COMMON NORMALS: supple GENERAL: Yes trachea midline Resp: COMMON NORMALS: normal respiratory effort and clear to auscultation bilaterally EFFORT & INSPECTION: Yes able to speak in complete sentences AUSCULTATION: clear to auscultation bilaterally Cardio: RATE: tachycardic RHYTHM: abnormal rhythm irregularly irregular GI: COMMON NORMALS: Soft to palpation PALPATION: Yes Soft to palpation and No Tenderness to palpation present (GI) PERCUSSION: normal to percussion Extremity: GENERAL: Yes normal exam except as noted and No edema Neuro: COMMON NORMALS: moves all extremities SENSORIUM/ORIENTATION: Yes alert and No Orientation impaired Psych: COMMON NORMALS: mental status grossly normal and Normal thought process present THOUGHT PROCESS: Normal thought process present Course ED course: - Patient was seen and evaluated by me at bedside - Patient placed on cardiac monitors, IV access obtained - Initial evaluation notable for exam as above - Metoprolol given - Labs and x-rays personally reviewed by me. - Labs notable for no leukocytosis, normal hemoglobin with macrocytosis noted. Metabolic panel without acute recommend treatment to explain patient symptoms. The patient's BNP is improved from prior and delta troponin is negative. - Imaging notable for no lobar consolidation, heart rate appears mildly enlarge. - Additional medications for rate and blood pressure control ordered. - Upon serial reexamination after treatment the patient was improved - Based on patient history, evaluation, labs, and imaging as interpreted the most likely cause of the patient's condition is - Discussed with patient's primary care provider, patient can follow-up in the next few days with outpatient setting if discharged. -Pertinent clinical history is that the patient stopped taking scheduled metoprolol a number of weeks ago. We will plan to restart at a lower dose as the patient's reason for stopping the metoprolol was bradycardia. - The results of ED evaluation were discussed with the patient including possible disposition options. Patient comfortable with discharge. Discussed prescriptions and/or symptomatic cares (if applicable) including appropriate and responsible use, followup plan, and return precautions. The patient verbalized understanding and felt safe for discharge. - Patient discharged in satisfactory condition. Note: Click bubbles or prepopulated leavitt in note writing are used for assistance with data collection and billing and are inherently more limited than narrative and other text portions of this note. Please use narrative for additional clinical history and defer to narrative/free test for any case of contradictory information. If information appears in only free text or click bubble it should be considered present or absent as reported. Please contact note policy writer for clarifications of clinical information or contradictory information. MDM is a brief summary, contradictory or erroneous seeming information should be clarified and full note should be reviewed. Vital Signs: Vital signs: Vital Signs Temperature 98.2 F 07/12/21 19:59 Pulse Rate 83 07/12/21 22:37 Respiratory Rate 18 07/12/21 22:37 Blood Pressure 188/89 07/12/21 23:35 Pulse Oximetry 93 07/12/21 22:37 MDM - Arrhythmia/Palpitations Medical Decision Making 80-year-old lady with history of atrial fibrillation and hypertension presenting with rapid heart rate and high blood pressure. Patient proved with medications. Discussed possible disposition options, patient comfortable with discharge. Discussed with patient's primary care provider. Patient can follow-up in outpatient setting in the next day or two. Medical Records I reviewed the patient's medical records. Lab Data I reviewed the patient's lab results. : 07/12/21 20:00 07/12/21 20:00 Radiology Impressions Chest X-Ray 07/12/21 20:05 IMPRESSION: Cardiomegaly, negative for infiltrate Laboratory Results WBC 8.4 10^3/uL (4.0-10.0) 07/12/21 20:00 RBC 3.72 10^6/uL (4.1-5.3) L 07/12/21 20:00 Hgb 11.9 g/dL (11.5-15.3) 07/12/21 20:00 Hct 39.4 % (37.0-47.0) 07/12/21 20:00 MCV 105.9 fl (81-99) H 07/12/21 20:00 MCH 32.0 pg (28.0-34.0) 07/12/21 20:00 MCHC 30.2 g/dL (30.0-36.0) 07/12/21 20:00 RDW 14.0 % (12.1-15.1) 07/12/21 20:00 Plt Count 209 10^3/cmm (130-400) 07/12/21 20:00 MPV 10.0 fL (7.4-10.4) 07/12/21 20:00 Neut % (Auto) 52.9 % 07/12/21 20:00 Lymph % (Auto) 35.0 % 07/12/21 20:00 [place] % (Auto) 8.1 % 07/12/21 20:00 Eos % (Auto) 3.6 % 07/12/21 20:00 Baso % (Auto) 0.2 % 07/12/21 20:00 Neut # (Auto) 4.43 10^3/uL (1.8-7.7) 07/12/21 20:00 Lymph # (Auto) 2.9 10^3/uL (0.8-4.8) 07/12/21 20:00 [place] # (Auto) 0.7 10^3/uL (0.2-0.9) 07/12/21 20:00 Eos # (Auto) 0.3 10^3/uL (0.0-0.8) 07/12/21 20:00 Baso # (Auto) 0.0 10^3/uL (0.0-0.1) 07/12/21 20:00 Nucleated RBC % (auto) 0 % 07/12/21 20:00 Nucleated RBCs # 0.0 /100WBC 07/12/21 20:00 PT 24.40 SECONDS (12.1-14.9) H 07/12/21 21:35 INR 2.15 (0.8-1.2) H 07/12/21 21:35 Sodium 138 mmol/L (136-145) 07/12/21 20:00 Potassium 3.8 mmol/L (3.5-5.1) 07/12/21 20:00 Chloride 101 mmol/L (98-107) 07/12/21 20:00 Carbon Dioxide 23 mmol/L (22-29) 07/12/21 20:00 Anion Gap 17.8 (5-19) 07/12/21 20:00 BUN 25 mg/dL (8-23) H 07/12/21 20:00 Creatinine 0.7 mg/dL (0.5-0.9) 07/12/21 20:00 GFR Calculation Not Reportable 07/12/21 20:00 Glucose 124 mg/dL (65-115) H 07/12/21 20:00 Calculated Osmolality 292 mOsm/kg (285-295) 07/12/21 20:00 Calcium 10.1 mg/dL (8.5-10.5) 07/12/21 20:00 Magnesium 1.7 mg/dL (1.7-2.3) 07/12/21 20:00 Total Bilirubin 0.4 mg/dL (0.15-1.2) 07/12/21 20:00 AST 22 U/L (0-32) 07/12/21 20:00 ALT 13 U/L (0-33) 07/12/21 20:00 Alkaline Phosphatase 103 IU/L (35-105) 07/12/21 20:00 Troponin T Baseline 19 ng/L (0-10) H 07/12/21 20:00 Troponin T 120 Minute 22.31 ng/L (0-10) H 07/12/21 21:35 Delta Troponin T 3.31 ABS# (0-10) 07/12/21 21:35 NT-Pro-B Natriuret Pep 639 pg/mL (0-450) H 07/12/21 20:00 Total Protein 7.5 g/dL (6.6-8.7) 07/12/21 20:00 Albumin 4.0 g/dL (3.5-5.2) 07/12/21 20:00 Globulin 3.5 g/dL (1.3-4.6) 07/12/21 20:00 TSH 2.49 uIU/mL (0.27-4.20) 07/12/21 20:00 EKG Data EKG 1: I personally reviewed and interpreted this EKG as follows: EKG interpretation date: 07/12/21 EKG interpretation time: 20:05 Interpretation: 12 Lead EKG shows an irregular rhythm at a rate of approximately 120 No SD interval, narrow QRS complex, QTc within normal limits. Normal axis. Interpretation: Atrial fibrillation Other EKG comments: Chest X-Ray 07/12/21 20:05 IMPRESSION: Cardiomegaly, negative for infiltrate Discharge Plan Discharge Patient Disposition: Home Clinical Impression: Atrial fibrillation, Hypertension Condition: Stable Prescriptions: New metoprolol tartrate 25 mg tablet 25 mg PO BID Qty: 60 0RF No Action furosemide 20 mg tablet 20 mg PO DAILY PRN (Reason: edema) Qty: 30 5RF ferrous sulfate 325 mg (65 mg iron) tablet 325 mg PO BID Qty: 60 3RF alprazolam 0.25 mg tablet 0.25 mg PO BID PRN (Reason: anxiety) Qty: 14 0RF amlodipine 5 mg tablet 2.5 mg PO DAILY Qty: 30 0RF montelukast [Singulair] 10 mg tablet 10 mg PO DAILY Qty: 90 3RF warfarin 3 mg tablet 3 mg PO DAILY 90 Days Qty: 90 1RF prednisolone acetate 1 % drops,suspension 1 drp ophthalmic (eye) DAILY 0RF Rx Instructions: USE IN RIGHT EYE DAILY losartan 50 mg tablet 50 mg PO DAILY 0RF atorvastatin 20 mg tablet 20 mg PO Q2D 0RF Rx Instructions: DOSE CHANGE Discharge Orders: Discharge ED (Routine); Ordered 07/13/21 Ordered By: Vimal Castañeda Referrals: Princess Grande MD [Primary Care Provider] - Discharge Diet: Usual diet Discharge Activity: Resume usual activity Activity Restrictions/Additional Instructions: Thank you for visiting the emergency department. You were seen and evaluated for fast heart rate. You were found to be in atrial fibrillation with high heart rate. This was improved with treatment which we are pleased with. Your blood pressure also improved with treatment. Please start amlodipine 5 mg daily and also restart 25 mg of metoprolol twice daily. Please call in the morning to see your primary care provider in the next few days. Please return to the emergency department for chest pain, shortness of breath, worsening symptoms, failure to improve, or anything else that you are concerned about and feel needs emergency department evaluation. Coding Level of Care Code ED Consumer Affairs Manager for Carlyn Fwd Exam Comprehensive
[2021-07-12 19:59] VITALS: BP 212/100; PULSE 121; RESP 18; TEMP 36.8; O2SAT 98; BMI 51.7
--- NOTE | 2021-07-12 20:05 | XRR_ITS ---
PROCEDURE INFORMATION: Exam: XR Chest Exam date and time: 07/12/2021 8:05 PM Age: 80 years old Clinical indication: Other: Tachycardia TECHNIQUE: Imaging protocol: XR of the chest. Views: 1 view. COMPARISON: CR (CHEST, ) 06/04/2021 4:55 AM FINDINGS: Lungs: Unremarkable. No consolidation. Pleural spaces: Unremarkable. No pleural effusion. No pneumothorax. Heart/Mediastinum: Cardiomegaly. Bones/joints: Unremarkable. XR/XR chest 1V portable [id number] IMPRESSION: Cardiomegaly, negative for infiltrate
--- NOTE | 2021-07-12 20:06 | ECG_ITS ---
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 Measurements Intervals [place] Rate: P: FL: QRS: QRSD: T: QT: QTc: Interpretive Statements Atrial fibrillation with RVR Compared to ECG 06/04/2021 05:03:25 Sinus bradycardia no longer present Short FL interval no longer present T-wave abnormality no longer present Possible ischemia no longer present Electronically Signed On 07-13-2021 18:48:38 CDT by Marc Greer M.D. [id number]
--- NOTE | 2021-07-12 20:07 | PC.NURSE ---
patient received with c/o a-fib, states heart rate at home 109's, reports pain in back and SOB with exertion but is now better with lower heart rate. respirations even equal and unlabored. speech clear, tele in place. family at bedside, EKG and Iv complete.
[2021-07-12 20:13] LABS: Basophils % 0.2 %; Eosinophils # 0.3 10^3/uL (0.0-0.8); Eosinophils % 3.6 %; Hematocrit 39.4 % (37.0-47.0); Hemoglobin 11.9 g/dL (11.5-15.3); Lymphocytes # 2.9 10^3/uL (0.8-4.8); Mean Corpuscular HGB Conc 30.2 g/dL (30.0-36.0); Mean Corpuscular Volume 105.9 fl (81-99); Monocytes # 0.7 10^3/uL (0.2-0.9); Monocytes % 8.1 %; Neutrophils # 4.43 10^3/uL (1.8-7.7); Neutrophils % 52.9 %; Nucleated Red Blood Cells % 0 %; Platelet Count 209 10^3/cmm (130-400); Red Blood Count 3.72 10^6/uL (4.1-5.3); White Blood Count 8.4 10^3/uL (4.0-10.0)
[2021-07-12] MEDS: metoprolol tartrate 1 mg/1 mL SDV 5 mL 5 MG IVP (21:05)
[2021-07-12 21:11] LABS: Troponin(5th) Baseline 19 ng/L (0-10)
[2021-07-12 21:16] LABS: Alanine Aminotransferase 13 U/L (0-33); Alkaline Phosphatase 103 IU/L (35-105); Anion Gap 17.8 (5-19); Aspartate Amino Transferase 22 U/L (0-32); Blood Urea Nitrogen 25 mg/dL (8-23); Calcium 10.1 mg/dL (8.5-10.5); Carbon Dioxide 23 mmol/L (22-29); Chloride 101 mmol/L (98-107); Globulin 3.5 g/dL (1.3-4.6); Glucose 124 mg/dL (65-115); Magnesium 1.7 mg/dL (1.7-2.3); NT Pro B Type Natriuretic Pept 639 pg/mL (0-450); Osmolality Calculated 292 mOsm/kg (285-295); Potassium 3.8 mmol/L (3.5-5.1); Sodium 138 mmol/L (136-145); Thyroid Stimulating Hormone 2.49 uIU/mL (0.27-4.20); Total Bilirubin 0.4 mg/dL (0.15-1.2); Total Protein 7.5 g/dL (6.6-8.7)
[2021-07-12] MEDS: labetalol 5 mg/mL SDV 20mL 10 MG IVP ×2 (21:54→23:23)
[2021-07-12 22:06] LABS: INR 2.15 (0.8-1.2)
[2021-07-12 22:16] LABS: Troponin 5 2HR 22.31 ng/L (0-10)
[2021-07-12 22:19] LABS: Troponin 5 2HR Delta 3.31 ABS# (0-10)
[2021-07-12 22:37] VITALS: BP 161/87; PULSE 83; RESP 18; O2SAT 93
[2021-07-12 23:35] VITALS: BP 188/89
[2021-07-12] MEDS: losartan 50 mg Tablet 25 MG PO (23:35)
[2021-07-13] MEDS: metoprolol tartrate 25 mg Tablet PO (00:27)
== END 2021-07-13 00:41 | disposition home or self-care (01) ==
PROVIDERS: Emergency Provider Emergency Medicine; PCP Family Medicine
DX: I48.91 Unspecified atrial fibrillation (principal); I10 Essential (primary) hypertension; Z79.01 Long term (current) use of anticoagulants
CPT/HCPCS: 71045; 80053; 83735; 83880; 84443; 84484; 85025; 85610; 93005; 96374; 96375; 96376; 99284; J3490

== ENCOUNTER 2021-10-26 02:37 | Emergency (ER) | payer MEDICARE, OTHER, SELFPAY ==
[2021-10-26 02:41] VITALS: BP 173/117; PULSE 111; RESP 18; TEMP 36.8; O2SAT 94; BMI 112.8
--- NOTE | 2021-10-26 02:46 | XRR_ITS ---
PROCEDURE INFORMATION: Exam: XR Chest Exam date and time: 10/26/2021 3:13 AM Age: 80 years old Clinical indication: Patient HX: C/O palpitations. Tachycardic. TECHNIQUE: Imaging protocol: Radiologic exam of the chest. Views: 1 view. COMPARISON: CR XR chest 1V portable [id number] 07/12/2021 7:21 PM FINDINGS: Lungs: Unremarkable. No consolidation. Pleural spaces: Unremarkable. No pleural effusion. No pneumothorax. Heart/Mediastinum: Cardiac enlargement. Bones/joints: Unremarkable. XR/XR chest 1V portable [id number] IMPRESSION: Negative exam. No acute chest abnormality identified.
--- NOTE | 2021-10-26 02:46 | ECG_ITS ---
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 Measurements Intervals [place] Rate: 111 P: 255 AL: 179 QRS: 35 QRSD: 87 T: 74 QT: 328 QTc: 448 Interpretive Statements SINUS TACHYCARDIA MODERATE ST DEPRESSION [0.05+ mV ST DEPRESSION] Compared to ECG 07/12/2021 19:03:25 ST (T wave) deviation now present Atrial fibrillation no longer present Electronically Signed On 10-26-2021 10:24:15 CDT by Cody Muhammad M.D. [email or web address].[email or web address]store/NU/[id number] f
--- NOTE | 2021-10-26 02:48 | ED_ITS ---
HPI - Arrhythmia/Palpitations General: Chief Complaint: General Medical Stated Complaint: Afib Time Seen by Provider: 10/26/21 02:39 Source: patient Mode of arrival: ambulatory Limitations: no limitations History of Present Illness: 80-year-old female has a history of hypertension along with chronic atrial fib. States that tonight that her heart was racing with heart rates into the 1 teens she states she was hypertensive into the 160s. She denies any pain. She states she has had no chest pain no shortness of breath she does states she can feel like that her hearts been racing. She does take metoprolol at home denies any worsening improving factors. Associated symptoms: Deny nausea or vomiting Review of Systems Const: Denies: fever(s), chills, body aches or change in appetite Eyes: Denies: blurry vision or eye discomfort ENMT: Denies: throat pain or dental pain Card: Reports: palpitations Resp: Denies: dyspnea GI: Denies: abdominal pain, nausea, vomiting or diarrhea : Denies: dysuria Musc: Denies: neck pain or back pain Skin/Breast: Denies: rash Neuro: Denies: headache(s) Psych: Denies: depression Edgar/Lymph: Denies: easy bruising All/Imm: Denies: urticaria PFSH ED PFSH: Medical History Anxiety Bradycardia by electrocardiogram Chronic atrial fibrillation Hypercholesteremia Hypertension Social History Smoking and tobacco status: never smoked Alcohol intake: never Physical Exam Const: COMMON NORMALS: no acute distress, patient oriented x3 and healthy appearing HENMT: COMMON NORMALS: normocephalic and atraumatic HEAD & SCALP: normocephalic and atraumatic Eye: COMMON NORMALS: Equal, round and reactive pupils present and EOMs intact bilaterally PUPIL: Yes Equal, round and reactive pupils present Neck/C-Spine: COMMON NORMALS: full ROM and supple Chest: COMMONS NORMALS: normal inspection of the chest and normal palpation of entire chest wall Resp: COMMON NORMALS: normal respiratory effort, No retractions, No use of accessory muscles and clear to auscultation bilaterally AUSCULTATION: clear to auscultation bilaterally Cardio: COMMON NORMALS: No murmurs present (Cardio) RATE: tachycardic RHYTHM: abnormal rhythm irregularly irregular GI: COMMON NORMALS: Normal to inspection, nondistended, normoactive bowel sounds present, Soft to palpation, non-tender and no masses PALPATION: Yes Soft to palpation Extremity: COMMON NORMALS: normal to inspection and full ROM Neuro: COMMON NORMALS: patient oriented x3, moves all extremities and no focal motor deficits Psych: COMMON NORMALS: mental status grossly normal, Normal thought process present and cooperative THOUGHT PROCESS: Normal thought process present Skin: COMMON NORMALS: no rashes or lesions noted and no wounds GENERAL SKIN EXAM: no rashes or lesions noted Course Vital Signs: Vital signs: Vital Signs Temperature 98.3 F 10/26/21 02:41 Pulse Rate 84 10/26/21 03:12 Respiratory Rate 20 H 10/26/21 03:12 Blood Pressure 149/72 10/26/21 03:12 Pulse Oximetry 95 10/26/21 03:12 MDM - Arrhythmia/Palpitations Medical Decision Making Patient presents here with 6-year-old fever heart rate is much improved after Cardizem her blood pressure now is 149/77 with a heart rate of 74 she has been asymptomatic besides the palpitations blood work is normal she stable for discharge she is to follow-up with PCP and return if worsening she understands agrees to plan. Lab Data : 10/26/21 02:56 10/26/21 02:56 Laboratory Results WBC 6.7 10^3/uL (4.0-10.0) 10/26/21 02:56 RBC 3.99 10^6/uL (4.1-5.3) L 10/26/21 02:56 Hgb 12.5 g/dL (11.5-15.3) 10/26/21 02:56 Hct 39.3 % (37.0-47.0) 10/26/21 02:56 MCV 98.5 fl (81-99) 10/26/21 02:56 MCH 31.3 pg (28.0-34.0) 10/26/21 02:56 MCHC 31.8 g/dL (30.0-36.0) 10/26/21 02:56 RDW 13.2 % (12.1-15.1) 10/26/21 02:56 Plt Count 189 10^3/cmm (130-400) 10/26/21 02:56 MPV 10.2 fL (7.4-10.4) 10/26/21 02:56 Neut % (Auto) 43.9 % 10/26/21 02:56 Lymph % (Auto) 39.2 % 10/26/21 02:56 [place] % (Auto) 8.8 % 10/26/21 02:56 Eos % (Auto) 7.5 % 10/26/21 02:56 Baso % (Auto) 0.3 % 10/26/21 02:56 Neut # (Auto) 2.93 10^3/uL (1.8-7.7) 10/26/21 02:56 Lymph # (Auto) 2.6 10^3/uL (0.8-4.8) 10/26/21 02:56 [place] # (Auto) 0.6 10^3/uL (0.2-0.9) 10/26/21 02:56 Eos # (Auto) 0.5 10^3/uL (0.0-0.8) 10/26/21 02:56 Baso # (Auto) 0.0 10^3/uL (0.0-0.1) 10/26/21 02:56 Nucleated RBC % (auto) 0 % 10/26/21 02:56 Nucleated RBCs # 0.0 /100WBC 10/26/21 02:56 PT 25.70 SECONDS (12.1-14.9) H 10/26/21 03:10 INR 2.31 (0.8-1.2) H 10/26/21 03:10 Sodium 138 mmol/L (136-145) 10/26/21 02:56 Potassium 4.2 mmol/L (3.5-5.1) 10/26/21 02:56 Chloride 100 mmol/L (98-107) 10/26/21 02:56 Carbon Dioxide 28 mmol/L (22-29) 10/26/21 02:56 Anion Gap 14.2 (5-19) 10/26/21 02:56 BUN 26 mg/dL (8-23) H 10/26/21 02:56 Creatinine 0.8 mg/dL (0.5-0.9) 10/26/21 02:56 GFR Calculation Not Reportable 10/26/21 02:56 Glucose 127 mg/dL (65-115) H 10/26/21 02:56 Calculated Osmolality 292 mOsm/kg (285-295) 10/26/21 02:56 Calcium 9.5 mg/dL (8.5-10.5) 10/26/21 02:56 EKG Data EKG 1: I personally reviewed and interpreted this EKG as follows: EKG interpretation date: 10/26/21 EKG interpretation time: 02:46 Interpretation: afib rvr hr [address] or t wave abnormalities qrs 87 qtc 394 Discharge Plan Discharge Patient Disposition: Home Clinical Impression: Chronic atrial fibrillation Condition: Stable Prescriptions: No Action furosemide 20 mg tablet 20 mg PO DAILY PRN (Reason: edema) Qty: 30 5RF alprazolam 0.25 mg tablet 0.25 mg PO BID PRN (Reason: anxiety) Qty: 14 0RF losartan 50 mg tablet 50 mg PO DAILY 90 Days Qty: 90 1RF metoprolol tartrate 25 mg tablet 25 mg PO BID 90 Days Qty: 180 1RF amlodipine 5 mg tablet 2.5 mg PO DAILY Qty: 60 3RF ferrous sulfate 325 mg (65 mg iron) tablet 325 mg PO BID Qty: 100 5RF atorvastatin 20 mg tablet 20 mg PO DAILY 90 Days Qty: 90 1RF warfarin 4 mg tablet 4 mg PO DAILY Qty: 90 2RF Rx Instructions: intended change from 3mg tablet montelukast [Singulair] 10 mg tablet 10 mg PO DAILY Qty: 90 3RF prednisolone acetate 1 % drops,suspension 1 drp ophthalmic (eye) DAILY 0RF Rx Instructions: USE IN RIGHT EYE DAILY Discharge Orders: Discharge ED (Routine); Ordered 10/26/21 Ordered By: Quiana Grimes Referrals: Princess rGande MD [Primary Care Provider] - 1-3 days Discharge Diet: Advance as tolerated Discharge Activity: Resume usual activity Patient Instructions: A-fib (Atrial Fibrillation) (ED) Coding Level of Care Code ED Microsoft Office Instructor for Chg Fwd Exam Comprehensive
[2021-10-26] MEDS: dilTIAZem 5 mg/mL SDV 5 mL 10 MG IVP (02:58)
[2021-10-26 03:02] LABS: Basophils % 0.3 %; Eosinophils # 0.5 10^3/uL (0.0-0.8); Eosinophils % 7.5 %; Hematocrit 39.3 % (37.0-47.0); Hemoglobin 12.5 g/dL (11.5-15.3); Lymphocytes # 2.6 10^3/uL (0.8-4.8); Lymphocytes % 39.2 %; Mean Corpuscular HGB Conc 31.8 g/dL (30.0-36.0); Mean Corpuscular Hemoglobin 31.3 pg (28.0-34.0); Mean Corpuscular Volume 98.5 fl (81-99); Mean Platelet Volume 10.2 fL (7.4-10.4); Monocytes # 0.6 10^3/uL (0.2-0.9); Monocytes % 8.8 %; Neutrophils # 2.93 10^3/uL (1.8-7.7); Neutrophils % 43.9 %; Nucleated Red Blood Cells % 0 %; Platelet Count 189 10^3/cmm (130-400); Red Blood Count 3.99 10^6/uL (4.1-5.3); Red Cell Distribution Width 13.2 % (12.1-15.1); White Blood Count 6.7 10^3/uL (4.0-10.0)
[2021-10-26 03:05] VITALS: BP 162/103; PULSE 79; RESP 15; O2SAT 95
[2021-10-26 03:12] VITALS: BP 149/72; PULSE 84; RESP 20; O2SAT 95
[2021-10-26 03:22] LABS: Anion Gap 14.2 (5-19); Blood Urea Nitrogen 26 mg/dL (8-23); Calcium 9.5 mg/dL (8.5-10.5); Carbon Dioxide 28 mmol/L (22-29); Chloride 100 mmol/L (98-107); Glucose 127 mg/dL (65-115); Osmolality Calculated 292 mOsm/kg (285-295); Potassium 4.2 mmol/L (3.5-5.1); Sodium 138 mmol/L (136-145)
[2021-10-26 03:25] LABS: INR 2.31 (0.8-1.2)
[2021-10-26 03:45] VITALS: BP 149/77; PULSE 75; RESP 18; O2SAT 92
== END 2021-10-26 03:46 | disposition home or self-care (01) ==
PROVIDERS: Emergency Provider Emergency Medicine; PCP Family Medicine
DX: I48.20 Chronic atrial fibrillation, unspecified (principal); Z79.01 Long term (current) use of anticoagulants; I10 Essential (primary) hypertension
CPT/HCPCS: 71045; 80048; 85025; 85610; 93005; 96374; 99284; J3490

== ENCOUNTER 2021-10-29 00:38 | Emergency (ER) | payer MEDICARE, OTHER, SELFPAY ==
[2021-10-29 00:49] VITALS: BP 172/97; PULSE 112; RESP 18; TEMP 36.6; O2SAT 98; BMI 51.2
--- NOTE | 2021-10-29 01:03 | XRR_ITS ---
PROCEDURE INFORMATION: Exam: XR Chest Exam date and time: 10/29/2021 1:13 AM Age: 80 years old Clinical indication: Other: Palpitations TECHNIQUE: Imaging protocol: Radiologic exam of the chest. Views: 1 view. COMPARISON: CR (CHEST, ) 10/26/2021 3:13 AM FINDINGS: Lungs: Unremarkable. No consolidation. Pleural spaces: Unremarkable. No pleural effusion. No pneumothorax. Heart/Mediastinum: Cardiac enlargement. Bones/joints: Unremarkable. XR/XR chest 1V portable [id number] IMPRESSION: No acute pulmonary disease.
--- NOTE | 2021-10-29 01:03 | ECG_ITS ---
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 Measurements Intervals [place] Rate: 109 P: SC: QRS: 9 QRSD: 84 T: 72 QT: 300 QTc: 405 Interpretive Statements ATRIAL FIBRILLATION WITH RAPID VENTRICULAR RESPONSE NONSPECIFIC ST & T-WAVE ABNORMALITY ABNORMAL RHYTHM ECG Compared to ECG 10/26/2021 02:46:52 T-wave abnormality now present Sinus tachycardia no longer present ST (T wave) deviation no longer present Electronically Signed On 10-29-2021 12:26:07 CDT by Cody Muhammad M.D. [email or web address] [facility]io [facility] center.Qingguo/store/NU/[id number]
[2021-10-29] MEDS: metoprolol tartrate 1 mg/1 mL SDV 5 mL 5 MG IVP ×2 (01:34→03:27)
[2021-10-29 01:43] LABS: Basophils % 0.4 %; Eosinophils # 0.5 10^3/uL (0.0-0.8); Eosinophils % 8.2 %; Hematocrit 41.4 % (37.0-47.0); Lymphocytes # 1.8 10^3/uL (0.8-4.8); Lymphocytes % 31.8 %; Mean Corpuscular HGB Conc 31.4 g/dL (30.0-36.0); Mean Corpuscular Volume 98.6 fl (81-99); Mean Platelet Volume 10.1 fL (7.4-10.4); Monocytes # 0.6 10^3/uL (0.2-0.9); Monocytes % 9.8 %; Neutrophils # 2.77 10^3/uL (1.8-7.7); Neutrophils % 49.4 %; Nucleated Red Blood Cells % 0 %; Platelet Count 199 10^3/cmm (130-400); Red Cell Distribution Width 13.3 % (12.1-15.1); White Blood Count 5.6 10^3/uL (4.0-10.0)
[2021-10-29 01:53] LABS: INR 3.13 (0.8-1.2)
[2021-10-29 02:07] LABS: Troponin(5th) Baseline 20 ng/L (0-10)
[2021-10-29 02:10] LABS: Alanine Aminotransferase 11 U/L (0-33); Alkaline Phosphatase 100 IU/L (35-105); Anion Gap 11.6 (5-19); Aspartate Amino Transferase 19 U/L (0-32); Blood Urea Nitrogen 20 mg/dL (8-23); Calcium 9.5 mg/dL (8.5-10.5); Carbon Dioxide 31 mmol/L (22-29); Chloride 104 mmol/L (98-107); Creatine Phosphokinase 43 U/L (26-192); Globulin 2.9 g/dL (1.3-4.6); Glucose 118 mg/dL (65-115); NT Pro B Type Natriuretic Pept 915 pg/mL (0-450); Osmolality Calculated 298 mOsm/kg (285-295); Potassium 4.6 mmol/L (3.5-5.1); Sodium 142 mmol/L (136-145); Total Bilirubin 0.2 mg/dL (0.15-1.2); Total Protein 6.9 g/dL (6.6-8.7)
[2021-10-29 03:45] VITALS: BP 172/95; PULSE 75; RESP 17; O2SAT 95
--- NOTE | 2021-10-29 04:19 | ED_ITS ---
HPI - Arrhythmia/Palpitations General: Chief Complaint: Arrhythmia/Palpitations Stated Complaint: possible AFIB Time Seen by Provider: 10/29/21 00:51 Source: patient and family History of Present Illness: 80-year-old lady with a history of atrial fibrillation. She was here a few days ago with similar complaints of palpitations which she felt at home. She checked her heart rate and it was well over 100. He was told by her doctor to take an extra metoprolol when this happens. She did so, and without improvement after over an hour, she came to the emergency room. She denies any chest pain. She notes no significant shortness of breath. No fevers chills, vomiting or diarrhea. MD complaint: rapid heart beat and heart racing Onset (ago): hour(s) Duration: constant Severity: moderate Context: occurred during rest Arrhythmia history: atrial fibrillation and on anti-coagulants Associated symptoms: Reports anxiety; Deny diaphoresis, nausea, short of breath, syncope or vomiting Treatments prior to arrival: beta-robert Review of Systems Const: Denies: fever(s) or diaphoresis Eyes: Denies: change in vision Card: Reports: palpitations and irregular heart rhythm; Denies: chest pain, swelling of feet/ankles or syncope Resp: Reports: dyspnea; Denies: productive cough GI: Denies: nausea or vomiting : Denies: dysuria Musc: Reports: back pain Neuro: Denies: headache(s) Psych: Reports: anxiety [facility] ED PFSH: Medical History Anxiety Bradycardia by electrocardiogram Chronic atrial fibrillation Hypercholesteremia Hypertension Social History Smoking and tobacco status: never smoked Alcohol intake: never Physical Exam Const: COMMON NORMALS: no acute distress GENERAL APPEARANCE: cooperative, comfortable and well kempt HENMT: COMMON NORMALS: normocephalic, atraumatic and Normal external nose pres ent HEAD & SCALP: normocephalic and atraumatic FACE & SINUS: normal facial exam NOSE: Normal external nose present and Normal nares present Eye: COMMON NORMALS: Equal, round and reactive pupils present and EOMs intact bilaterally PUPIL: Yes Equal, round and reactive pupils present Neck/C-Spine: COMMON NORMALS: full ROM Chest: CHEST: Yes Symmetrical chest wall rise Resp: COMMON NORMALS: normal respiratory effort, No retractions, No use of accessory muscles and clear to auscultation bilaterally AUSCULTATION: clear to auscultation bilaterally Cardio: RATE: tachycardic RHYTHM: abnormal rhythm irregularly irregular GI: COMMON NORMALS: Normal to inspection, nondistended, normoactive bowel sounds present Extremity: GENERAL: Yes edema Neuro: RADHA COMA SCALE: document GCS findings [place] coma scale eye opening: Spontaneous [place] coma scale verbal response: Orientated Radha coma scale motor response: Obey commands Radha coma scale total score: 15 Psych: APPEARANCE: Yes well kempt Course Vital Signs: Vital signs: Vital Signs Temperature 97.9 F 10/29/21 00:49 Pulse Rate 75 10/29/21 03:45 Respiratory Rate 17 10/29/21 03:45 Blood Pressure 172/95 10/29/21 03:45 Pulse Oximetry 95 10/29/21 03:45 MDM - Arrhythmia/Palpitations Medical Decision Making Patient was initially tachycardic on arrival. She did not have chest pain. She was given 5 milligrams of IV metoprolol with improvement in both her blood pressure and heart rate. She was given another 5, when her blood pressure seemed to climb again. She was discharged in atrial fibrillation with a heart rate of 70s to 80s, and a blood pressure of 160 systolic. A few days ago, when she had come in, she was given diltiazem with good results in reducing her heart rate as well. She has extra metoprolol to take for her heart rate, but she knows that once it gets above 100, the metoprolol does not seem to help at home. She will be prescribed as needed diltiazem to try at home for heart rates greater than 100. Her laboratory is benign. her chest X rays negative. Her tropnin was not significantly elevated above her baseline. Lab Data : 10/29/21 01:30 10/29/21 01:30 Radiology Impressions Chest X-Ray 10/29/21 01:03 IMPRESSION: No acute pulmonary disease. Laboratory Results WBC 5.6 10^3/uL (4.0-10.0) 10/29/21 01:30 RBC 4.20 10^6/uL (4.1-5.3) 10/29/21 01:30 Hgb 13.0 g/dL (11.5-15.3) 10/29/21 01:30 Hct 41.4 % (37.0-47.0) 10/29/21 01:30 MCV 98.6 fl (81-99) 10/29/21 01:30 MCH 31.0 pg (28.0-34.0) 10/29/21 01:30 MCHC 31.4 g/dL (30.0-36.0) 10/29/21 01:30 RDW 13.3 % (12.1-15.1) 10/29/21 01:30 Plt Count 199 10^3/cmm (130-400) 10/29/21 01:30 MPV 10.1 fL (7.4-10.4) 10/29/21 01:30 Neut % (Auto) 49.4 % 10/29/21 01:30 Lymph % (Auto) 31.8 % 10/29/21 01:30 [place] % (Auto) 9.8 % 10/29/21 01:30 Eos % (Auto) 8.2 % 10/29/21 01:30 Baso % (Auto) 0.4 % 10/29/21 01:30 Neut # (Auto) 2.77 10^3/uL (1.8-7.7) 10/29/21 01:30 Lymph # (Auto) 1.8 10^3/uL (0.8-4.8) 10/29/21 01:30 [place] # (Auto) 0.6 10^3/uL (0.2-0.9) 10/29/21 01:30 Eos # (Auto) 0.5 10^3/uL (0.0-0.8) 10/29/21 01:30 Baso # (Auto) 0.0 10^3/uL (0.0-0.1) 10/29/21 01:30 Nucleated RBC % (auto) 0 % 10/29/21 01:30 Nucleated RBCs # 0.0 /100WBC 10/29/21 01:30 PT 32.50 SECONDS (12.1-14.9) H 10/29/21 01:30 INR 3.13 (0.8-1.2) H 10/29/21 01:30 Sodium 142 mmol/L (136-145) 10/29/21 01:30 Potassium 4.6 mmol/L (3.5-5.1) 10/29/21 01:30 Chloride 104 mmol/L (98-107) 10/29/21 01:30 Carbon Dioxide 31 mmol/L (22-29) H 10/29/21 01:30 Anion Gap 11.6 (5-19) 10/29/21 01:30 BUN 20 mg/dL (8-23) 10/29/21 01:30 Creatinine 0.7 mg/dL (0.5-0.9) 10/29/21 01:30 GFR Calculation Not Reportable 10/29/21 01:30 Glucose 118 mg/dL (65-115) H 10/29/21 01:30 Calculated Osmolality 298 mOsm/kg (285-295) H 10/29/21 01:30 Calcium 9.5 mg/dL (8.5-10.5) 10/29/21 01:30 Total Bilirubin 0.2 mg/dL (0.15-1.2) 10/29/21 01:30 AST 19 U/L (0-32) 10/29/21 01:30 ALT 11 U/L (0-33) 10/29/21 01:30 Alkaline Phosphatase 100 IU/L (35-105) 10/29/21 01:30 Creatine Kinase 43 U/L (26-192) 10/29/21 01:30 Troponin T Baseline 20 ng/L (0-10) H 10/29/21 01:30 NT-Pro-B Natriuret Pep 915 pg/mL (0-450) H 10/29/21 01:30 Total Protein 6.9 g/dL (6.6-8.7) 10/29/21 01:30 Albumin 4.0 g/dL (3.5-5.2) 10/29/21 01:30 Globulin 2.9 g/dL (1.3-4.6) 10/29/21 01:30 Discharge Plan Discharge Patient Disposition: Home Clinical Impression: Atrial fibrillation, Hypertension Condition: Stable Prescriptions: New diltiazem HCl 60 mg tablet 60 mg PO TID Qty: 30 0RF No Action furosemide 20 mg tablet 20 mg PO DAILY PRN (Reason: edema) Qty: 30 5RF alprazolam 0.25 mg tablet 0.25 mg PO BID PRN (Reason: anxiety) Qty: 14 0RF losartan 50 mg tablet 50 mg PO DAILY 90 Days Qty: 90 1RF metoprolol tartrate 25 mg tablet 25 mg PO BID 90 Days Qty: 180 1RF amlodipine 5 mg tablet 2.5 mg PO DAILY Qty: 60 3RF ferrous sulfate 325 mg (65 mg iron) tablet 325 mg PO BID Qty: 100 5RF atorvastatin 20 mg tablet 20 mg PO DAILY 90 Days Qty: 90 1RF warfarin 4 mg tablet 4 mg PO DAILY Qty: 90 2RF Rx Instructions: intended change from 3mg tablet montelukast [Singulair] 10 mg tablet 10 mg PO DAILY Qty: 90 3RF prednisolone acetate 1 % drops,suspension 1 drp ophthalmic (eye) DAILY 0RF Rx Instructions: USE IN RIGHT EYE DAILY Discharge Orders: Discharge ED (Routine); Ordered 10/29/21 Ordered By: Nolberto Chicas Referrals: Princess Grande MD [Primary Care Provider] - 4-7 days Discharge Diet: Advance as tolerated Discharge Activity: Increase activity as tolerated Patient Instructions: A-fib (Atrial Fibrillation) (ED) Activity Restrictions/Additional Instructions: If your heart rate increases to 100 or more, take one of the diltiazem pills you were prescribed tonight. Do not take them daily, only as needed. Recheck your heart rate after an hour. If it is not improved significantly, you should come to the emergency department. Return to the ER for chest discomfort, shortness of breath, any other concerning symptoms. Coding Level of Care Code ED Breastfeeding Program Coordinator for Carlyn Villagomez Exam Comprehensive
== END 2021-10-29 03:33 | disposition home or self-care (01) ==
PROVIDERS: Emergency Provider Emergency Medicine; PCP Family Medicine
DX: I48.91 Unspecified atrial fibrillation (principal); I10 Essential (primary) hypertension; Z79.01 Long term (current) use of anticoagulants
CPT/HCPCS: 71045; 80053; 82550; 83880; 84484; 85025; 85610; 93005; 96374; 96376; 99284; J3490

== ENCOUNTER → 2022-01-23 11:51 | Outpatient (BNVA) | payer MEDICARE, OTHER, SELFPAY | PROVIDERS: PCP Family Medicine; Visit Provider Family Medicine | DX: E78.00 Pure hypercholesterolemia, unspecified (principal); I10 Essential (primary) hypertension; Z23 Encounter for immunization; I48.20 Chronic atrial fibrillation, unspecified | CPT/HCPCS: 80053; 80061; 85025 ==

== ENCOUNTER 2022-02-25 21:03 | Emergency (ER) | payer MEDICARE, OTHER, SELFPAY ==
--- NOTE | 2022-02-25 21:12 | ECG_ITS ---
[facility] Test Date: 2022-02-25 Pat Name: Yadira Krishnan Department: Room: Gender: Female Business Consultant: : 1940 Requested By: Vimal Castañeda Order Number: [id number] Heath MD: Cody Muhammad M.D. Measurements Intervals [place] Rate: 78 P: 259 [place]: 124 QRS: 15 QRSD: 84 T: 78 QT: 407 QTc: 466 Interpretive Statements Atrial fibrillation MODERATE ST DEPRESSION [0.05+ mV ST DEPRESSION] Compared to ECG 10/29/2021 00:49:[address] depression still present Electronically Signed On 02-26-2022 10:17:05 CDT by Cody Muhammad M.D. [id number]
[2022-02-25 21:33] VITALS: BP 172/81; PULSE 110; RESP 16; TEMP 36.8; O2SAT 95; BMI 50.8
--- NOTE | 2022-02-25 21:41 | PC.NURSE ---
Patient adds after triage that she sometimes gets dizzy when sitting
[2022-02-25 22:03] LABS: Basophils % 0.2 %; Eosinophils # 0.3 10^3/uL (0.0-0.8); Eosinophils % 6.1 %; Hematocrit 37.3 % (37.0-47.0); Hemoglobin 11.3 g/dL (11.5-15.3); Lymphocytes # 1.8 10^3/uL (0.8-4.8); Lymphocytes % 33.6 %; Mean Corpuscular HGB Conc 30.3 g/dL (30.0-36.0); Mean Corpuscular Hemoglobin 30.8 pg (28.0-34.0); Mean Corpuscular Volume 101.6 fl (81-99); Mean Platelet Volume 9.9 fL (7.4-10.4); Monocytes # 0.4 10^3/uL (0.2-0.9); Monocytes % 7.4 %; Neutrophils # 2.86 10^3/uL (1.8-7.7); Neutrophils % 52.5 %; Nucleated Red Blood Cells % 0 %; Platelet Count 206 10^3/cmm (130-400); Red Blood Count 3.67 10^6/uL (4.1-5.3); Red Cell Distribution Width 13.4 % (12.1-15.1); White Blood Count 5.4 10^3/uL (4.0-10.0)
[2022-02-25 22:09] VITALS: BP 177/96; PULSE 79; RESP 20; O2SAT 94
[2022-02-25 22:27] VITALS: BP 162/117; PULSE 95
[2022-02-25 22:28] LABS: Troponin(5th) Baseline 24 ng/L (0-10)
[2022-02-25 22:39] LABS: Alanine Aminotransferase 11 U/L (0-33); Albumin Level 3.5 g/dL (3.5-5.2); Alkaline Phosphatase 120 U/L (35-105); Anion Gap 13.5 (5-19); Aspartate Amino Transferase 19 U/L (0-32); Blood Urea Nitrogen 18 mg/dL (8-23); Calcium 9.5 mg/dL (8.5-10.5); Carbon Dioxide 28 mmol/L (22-29); Chloride 99 mmol/L (98-107); Glucose 120 mg/dL (65-115); Magnesium 1.9 mg/dL (1.7-2.3); Osmolality Calculated 285 mOsm/kg (285-295); Potassium 4.5 mmol/L (3.5-5.1); Sodium 136 mmol/L (136-145); Total Bilirubin 0.3 mg/dL (0.15-1.2); Total Protein 6.5 g/dL (6.6-8.7)
[2022-02-25 22:48] VITALS: BP 177/98; PULSE 84
[2022-02-25] MEDS: metoprolol tartrate 1 mg/1 mL SDV 5 mL 5 MG IVP (22:49)
[2022-02-25] MEDS: metoprolol tartrate 25 mg Tablet PO (22:49)
[2022-02-25 22:52] LABS: INR 3.45 (0.8-1.2)
[2022-02-25 23:05] LABS: NT Pro B Type Natriuretic Pept 1480 pg/mL (0-450); Thyroid Stimulating Hormone 2.17 uIU/mL (0.27-4.20)
--- NOTE | 2022-02-25 23:07 | ED_ITS ---
HPI - General Adult General: Chief complaint: General Medical Stated complaint: High HR, States in AFIB Time Seen by Provider: 02/25/22 22:05 Source: patient and family History of Present Illness: 81-year-old female with a history of hypertension and atrial fibrillation. She presents with fluttering in her heart that started last night, and has continued on and off today. She is not experiencing symptoms currently. She denies chest pain. She is not overly short of breath. She denies fever, changes in cough, worsening swelling, etc. she took metoprolol today and diltiazem without improvement in her heart rate. Onset (ago): hour(s) Radiation: non-radiation Severity: similar to prior episodes Quality: other Relieving factors: other Exacerbating factors: other Associated symptoms: Reports cough (Chronic); Deny chest pain, confusion, dyspnea, fevers/chills, headache(s), nausea, short of breath, vomiting or weakness Treatments prior to arrival: none Review of Systems Const: Denies: fever(s) Eyes: Denies: change in vision ENMT: Denies: throat pain Card: Denies: chest pain Resp: Denies: dyspnea GI: Denies: nausea or vomiting Musc: Denies: neck pain Neuro: Denies: headache(s) or confusion PFS ED PFSH: Medical History Anxiety Bradycardia by electrocardiogram Chronic atrial fibrillation Hypercholesteremia Hypertension Social History Smoking and tobacco status: never smoked Alcohol intake: never Physical Exam Const: COMMON NORMALS: no acute distress GENERAL APPEARANCE: cooperative and frail appearing (Mildly); not ill appearing HENMT: COMMON NORMALS: normocephalic and Normal external nose present HEAD & SCALP: normocephalic FACE & SINUS: normal facial exam and face symmetric NOSE: Normal external nose present Eye: COMMON NORMALS: EOMs intact bilaterally OTHER: Pupils unequal with dilatation of left, constriction of right. Patient on side of plegic's on the right Neck/C-Spine: GENERAL: Yes trachea midline Chest: CHEST: Yes Symmetrical chest wall rise Resp: COMMON NORMALS: normal respiratory effort, No use of accessory muscles and clear to auscultation bilaterally AUSCULTATION: clear to auscultation bilaterally Cardio: RATE: tachycardic (At times) RHYTHM: abnormal rhythm irregularly irregular GI: COMMON NORMALS: Normal to inspection, nondistended, normoactive bowel sounds present, Soft to palpation and non-tender PALPATION: Yes Soft to palpation Extremity: GENERAL: Yes edema (1+) Neuro: RADHA COMA SCALE: document GCS findings Radha coma scale eye openin g: Spontaneous [place] coma scale verbal response: Orientated [place] coma scale motor response: Obey commands [place] coma scale total score: 15 Course Vital Signs: Vital signs: Vital Signs Temperature 98.3 F 02/25/22 21:33 Pulse Rate 65 02/26/22 00:09 Respiratory Rate 16 02/26/22 00:09 Blood Pressure 174/87 02/26/22 00:09 Pulse Oximetry 93 02/26/22 00:09 Oxygen Delivery Me thod 02/25/22 22:09 MDM - General Adult Medical Decision Making Heart rate was minimally rapid, and irregular on arrival. After 5 metoprolol I V, and 25 orally, her heart rate is sinus in the 60s. Her blood pressure 170/80. Saturations 94% on room air, respirations are 20. Her hemoglobin is 11. Her white count is 5.4. Her BMP is not remarkable. Her first troponin is 24 which is at her baseline. She has not had any chest pain. She has been having these palpitations on and off for 24 hours. Liver enzymes are normal. alk phos slightly elevated. She feels improved, and wishes to go home. Lab Data : 02/25/22 21:40 02/25/22 21:40 Laboratory Results WBC 5.4 10^3/uL (4.0-10.0) 02/25/22 21:40 RBC 3.67 10^6/uL (4.1-5.3) L 02/25/22 21:40 Hgb 11.3 g/dL (11.5-15.3) L 02/25/22 21:40 Hct 37.3 % (37.0-47.0) 02/25/22 21:40 MCV 101.6 fl (81-99) H 02/25/22 21:40 MCH 30.8 pg (28.0-34.0) 02/25/22 21:40 MCHC 30.3 g/dL (30.0-36.0) 02/25/22 21:40 RDW 13.4 % (12.1-15.1) 02/25/22 21:40 Plt Count 206 10^3/cmm (130-400) 02/25/22 21:40 MPV 9.9 fL (7.4-10.4) 02/25/22 21:40 Neut % (Auto) 52.5 % 02/25/22 21:40 Lymph % (Auto) 33.6 % 02/25/22 21:40 [place] % (Auto) 7.4 % 02/25/22 21:40 Eos % (Auto) 6.1 % 02/25/22 21:40 Baso % (Auto) 0.2 % 02/25/22 21:40 Neut # (Auto) 2.86 10^3/uL (1.8-7.7) 02/25/22 21:40 Lymph # (Auto) 1.8 10^3/uL (0.8-4.8) 02/25/22 21:40 [place] # (Auto) 0.4 10^3/uL (0.2-0.9) 02/25/22 21:40 Eos # (Auto) 0.3 10^3/uL (0.0-0.8) 02/25/22 21:40 Baso # (Auto) 0.0 10^3/uL (0.0-0.1) 02/25/22 21:40 Nucleated RBC % (auto) 0 % 02/25/22 21:40 Nucleated RBCs # 0.0 /100WBC 02/25/22 21:40 PT 35.00 SECONDS (12.1-14.9) H 02/25/22 22:32 INR 3.45 (0.8-1.2) H 02/25/22 22:32 Sodium 136 mmol/L (136-145) 02/25/22 21:40 Potassium 4.5 mmol/L (3.5-5.1) 02/25/22 21:40 Chloride 99 mmol/L (98-107) 02/25/22 21:40 Carbon Dioxide 28 mmol/L (22-29) 02/25/22 21:40 Anion Gap 13.5 (5-19) 02/25/22 21:40 BUN 18 mg/dL (8-23) 02/25/22 21:40 Creatinine 0.8 mg/dL (0.5-0.9) 02/25/22 21:40 GFR Calculation Not Reportable 02/25/22 21:40 Glucose 120 mg/dL (65-115) H 02/25/22 21:40 Calculated Osmolality 285 mOsm/kg (285-295) 02/25/22 21:40 Calcium 9.5 mg/dL (8.5-10.5) 02/25/22 21:40 Magnesium 1.9 mg/dL (1.7-2.3) 02/25/22 21:40 Total Bilirubin 0.3 mg/dL (0.15-1.2) 02/25/22 21:40 AST 19 U/L (0-32) 02/25/22 21:40 ALT 11 U/L (0-33) 02/25/22 21:40 Alkaline Phosphatase 120 U/L (35-105) H 02/25/22 21:40 Troponin T Baseline 24 ng/L (0-10) H 02/25/22 21:40 NT-Pro-B Natriuret Pep 1480 pg/mL (0-450) H 02/25/22 21:40 Total Protein 6.5 g/dL (6.6-8.7) L 02/25/22 21:40 Albumin 3.5 g/dL (3.5-5.2) 02/25/22 21:40 Globulin 3.0 g/dL (1.3-4.6) 02/25/22 21:40 TSH 2.17 uIU/mL (0.27-4.20) 02/25/22 21:40 Discharge Plan Discharge Patient Disposition: Home Clinical Impression: Chronic atrial fibrillation Condition: Stable Prescriptions: No Action furosemide 20 mg tablet 20 mg PO DAILY PRN (Reason: edema) Qty: 30 5RF alprazolam 0.25 mg tablet 0.25 mg PO BID PRN (Reason: anxiety) Qty: 14 0RF ferrous sulfate 325 mg (65 mg iron) tablet 325 mg PO BID Qty: 100 5RF atorvastatin 20 mg tablet 20 mg PO DAILY 90 Days Qty: 90 1RF montelukast [Singulair] 10 mg tablet 10 mg PO DAILY Qty: 90 3RF warfarin 4 mg tablet 4 mg PO DAILY Qty: 90 2RF Rx Instructions: intended change from 3mg tablet losartan 50 mg tablet 50 mg PO DAILY 90 Days Qty: 90 1RF metoprolol tartrate 25 mg tablet 25 mg PO BID 90 Days Qty: 180 1RF prednisolone acetate 1 % drops,suspension 1 drp ophthalmic (eye) DAILY Rx Instructions: USE IN RIGHT EYE DAILY diltiazem HCl 60 mg tablet 60 mg PO TID Qty: 30 0RF Discharge Orders: Discharge ED (Routine); Ordered 02/25/22 Ordered By: Nolberto Chicas Referrals: Princess Grande MD [Primary Care Provider] - 1-3 days Patient Instructions: A-fib (Atrial Fibrillation) (ED) Activity Restrictions/Additional Instructions: Continue your metoprolol, with as needed diltiazem as directed. Return for worsening heart failure, chest discomfort, shortness of breath, any other concerning symptoms. See your doctor next week. Coding Level of Care Code ED Chute Operator for Karrig Fwd Exam Comprehensive
[2022-02-26] VITALS: BP 174/78
[2022-02-26 00:09] VITALS: BP 174/87; PULSE 65; RESP 16; O2SAT 93
== END 2022-02-26 00:24 | disposition home or self-care (01) ==
PROVIDERS: Emergency Medicine; Emergency Provider Emergency Medicine; PCP Family Medicine
DX: I48.20 Chronic atrial fibrillation, unspecified (principal); Z79.01 Long term (current) use of anticoagulants; I10 Essential (primary) hypertension
CPT/HCPCS: 36415; 80053; 83735; 83880; 84443; 84484; 85025; 85610; 93005; 96374; 99285; J3490

== ENCOUNTER 2022-03-10 23:39 | Emergency (ER) | payer MEDICARE, OTHER, SELFPAY ==
[2022-03-10 23:48] VITALS: BP 152/74; PULSE 86; RESP 18; TEMP 37.1; O2SAT 97; BMI 50.8
--- NOTE | 2022-03-11 00:28 | W.ED.GENADLT ---
HPI - General Adult General: Chief complaint: General Medical Stated complaint: Blood in Urine Time Seen by Provider: 03/11/22 00:19 Source: patient History of Present Illness: 81-year-old female who is anticoagulated for atrial fibrillation chronically. She notes that her INR was high last week, at 6.4, and then came down to the mid 4 range this week. Today she noted blood in her urine. This is painless. She was worried that she might have a urinary tract infection. She denies fever, abdominal pain, other sites of bleeding Onset (ago): hour(s) Radiation: other Quality: other Relieving factors: other Exacerbating factors: other Associated symptoms: Deny chest pain, confusion, cough, diaphoresis, dyspnea, fevers/chills, headache(s), palpitations, short of breath, vomiting or weakness Review of Systems Const: Denies: diaphoresis ENMT: Denies: throat pain Card: Denies: chest pain or palpitations Resp: Denies: dyspnea, productive cough or non-productive cough GI: Denies: abdominal pain or vomiting : Reports: urinary frequency and hematuria; Denies: flank pain, difficulty voiding or dysuria Neuro: Denies: headache(s) or confusion PFSH ED PFSH: Medical History Anxiety Bradycardia by electrocardiogram Chronic atrial fibrillation Hypercholesteremia Hypertension Social History Smoking and tobacco status: never smoked Alcohol intake: never Physical Exam Const: COMMON NORMALS: no acute distress GENERAL APPEARANCE: cooperative and frail appearing (Mildly); not ill appearing NUTRITIONAL APPEARANCE: obese HENMT: COMMON NORMALS: normocephalic, atraumatic and Normal external nose present HEAD & SCALP: normocephalic and atraumatic FACE & SINUS: normal facial exam and face symmetric NOSE: Normal external nose present Eye: COMMON NORMALS: Equal, round and reactive pupils present and EOMs intact bilaterally PUPIL: Yes Equal, round and reactive pupils present Neck/C-Spine: GENERAL: Yes trachea midline Chest: CHEST: Yes Symmetrical chest wall rise Resp: COMMON NORMALS: normal respiratory effort, No retractions, No use of accessory muscles and clear to auscultation bilaterally AUSCULTATION: clear to auscultation bilaterally Cardio: COMMON NORMALS: regular rate and regular rhythm RATE: regular rate RHYTHM: regular rhythm GI: COMMON NORMALS: Normal to inspection, nondistended, normoactive bowel sounds present Extremity: COMMON NORMALS: no pedal edema Neuro: NOBLE COMA SCALE: document GCS findings [place] coma scale eye opening: Spontaneous [place] coma scale verbal response: Orientated [place] coma scale motor response: Obey commands [place] coma scale total score: 15 SENSORY EXAM: Yes extremities (intact) Psych: COMMON NORMALS: speech normal SPEECH: Yes normal speech Skin: COMMON NORMALS: no rashes or lesions noted GENERAL SKIN EXAM: no rashes or lesions noted Course Vital Signs: Vital signs: Vital Signs Temperature 98.8 F 03/10/22 23:48 Pulse Rate 79 03/11/22 02:02 Respiratory Rate 18 03/11/22 02:02 Blood Pressure 127/78 03/11/22 02:02 Pulse Oximetry 94 03/11/22 02:02 Oxygen Delivery Me thod 03/11/22 00:52 [facility] - General Adult Medical Decision Making 81-year-old female with mild Coumadin coagulopathy. Her INR is down to 3.36. She does have gross hematuria, with 25-40 whites, 1+ leukocyte esterase, and 3+ bacteria with no squamous cells. We will go ahead and treat this is a urinary tract infection. She will get a gram of Rocephin here with follow-up antibiotics. Her creatinine is 0.7. Lab Data : 03/11/22 00:27 03/11/22 00:27 Laboratory Results WBC 7.1 10^3/uL (4.0-10.0) 03/11/22 00:27 RBC 3.86 10^6/uL (4.1-5.3) L 03/11/22 00:27 Hgb 11.6 g/dL (11.5-15.3) 03/11/22 00:27 Hct 38.2 % (37.0-47.0) 03/11/22 00:27 MCV 99.0 fl (81-99) 03/11/22 00:27 MCH 30.1 pg (28.0-34.0) 03/11/22 00: MCHC 30.4 g/dL (30.0-36.0) 03/11/22 00: RDW 13.4 % (12.1-15.1) 03/11/22 00:27 Plt Count 231 10^3/cmm (130-400) 03/11/22 00: MPV 9.9 fL (7.4-10.4) 03/11/22 00: Neut % (Auto) 45.4 % 03/11/22: Lymph % (Auto) 39.7 % 03/11/22: [place] % (Auto) 8.3 % 03/11/22: Eos % (Auto) 6.2 % 03/11/22 00: Baso % (Auto) 0.3 % 03/11/22: Neut # (Auto) 3.24 10^3/uL (1.8-7.7) 03/11/22: Lymph # (Auto) 2.8 10^3/uL (0.8-4.8) 03/11/22 00: [place] # (Auto) 0.6 10^3/uL (0.2-0.9) 03/11/22 00: Eos # (Auto) 0.4 10^3/uL (0.0-0.8) 03/11/22 00: Baso # (Auto) 0.0 10^3/uL (0.0-0.1) 03/11/22 00: Nucleated RBC % (auto) 0 % 03/11/22 00: Nucleated RBCs # 0.0 /100WBC 03/11/22 00: PT 34.30 SECONDS (12.1-14.9) H 03/11/22 00: INR 3.36 (0.8-1.2) H 03/11/22 00:27 Sodium 137 mmol/L (136-145) 03/11/22 00:27 Potassium 4.0 mmol/L (3.5-5.1) 03/11/22 00: Chloride 100 mmol/L (98-107) 03/11/22 00: Carbon Dioxide 26 mmol/L (22-29) 03/11/22 00: Anion Gap 15.0 (5-19) 03/11/22 00:27 BUN 14 mg/dL (8-23) 03/11/22 00:27 Creatinine 0.7 mg/dL (0.5-0.9) 03/11/22: GFR Calculation Not Reportable 03/11/22: Glucose 129 mg/dL (65-115) H 03/11/22: Calculated Osmolality 286 mOsm/kg (285-295) 03/11/22: Calcium 9.8 mg/dL (8.5-10.5) 03/11/22: Total Bilirubin 0.5 mg/dL (0.15-1.2) 03/11/22: AST 21 U/L (0-32) 03/11/22: ALT 11 U/L (0-33) 03/11/22: Alkaline Phosphatase 104 U/L (35-105) 03/11/22: Total Protein 7.0 g/dL (6.6-8.7) 03/11/22: Albumin 3.7 g/dL (3.5-5.2) 03/11/22 Globulin 3.3 g/dL (1.3-4.6) 03/11/22: Lipase 18 U/L (13-60) 03/11/22: Urine Color Brown (Yellow) 03/11/22 00:55 Urine Appearance Cloudy (CLEAR) A 03/11/22 00:55 Urine pH 6.5 (5-7) 03/11/22 00:55 Ur Specific [place] 1.015 (1.005-1.030) 03/11/22 00:55 Urine Protein 3+ (Negative) H 03/11/22 00:55 Urine Glucose (UA) Norm (Normal) 03/11/22 00:55 Urine Ketones 1+ (Negative) H 03/11/22 00:55 Urine Blood 3+ (Negative) H 03/11/22 00:55 Urine Nitrate Positive (Negative) H 03/11/22 00:55 Urine Bilirubin 1+ (Negative) H 03/11/22 00:55 Urine Urobilinogen 1 mg/dL (Negative) H 03/11/22 00:55 Ur Leukocyte Esterase 1+ (Negative) H 03/11/22 00:55 Urine RBC Too numerous to cnt /hpf (0-2) H 03/11/22 00:55 Urine WBC 25-40 /hpf (0-5) H 03/11/22 00:55 Ur Squamous Epith Cells None /hpf (0-5) 03/11/22 00:55 Amorphous Sediment Not Reportable 11 00:55 Urine Bacteria 3+ /hpf (NONE) H 03/11/22 00:55 Discharge Plan Discharge Patient Disposition: Home Clinical Impression: Gross hematuria, Urinary tract infection Condition: Stable Prescriptions: New Macrobid 100 mg capsule 100 mg PO BID 7 Days Qty: 14 0RF Rx Instructions: must administer with a meal/food No Action furosemide 20 mg tablet 20 mg PO DAILY PRN (Reason: edema) Qty: 30 5RF alprazolam 0.25 mg tablet 0.25 mg PO BID PRN (Reason: anxiety) Qty: 14 0RF ferrous sulfate 325 mg (65 mg iron) tablet 325 mg PO BID Qty: 100 5RF atorvastatin 20 mg tablet 20 mg PO DAILY 90 Days Qty: 90 1RF montelukast [Singulair] 10 mg tablet 10 mg PO DAILY Qty: 90 3RF warfarin 4 mg tablet 4 mg PO DAILY Qty: 90 2RF Rx Instructions: intended change from 3mg tablet losartan 50 mg tablet 50 mg PO DAILY 90 Days Qty: 90 1RF metoprolol tartrate 50 mg tablet 50 mg PO BID Qty: 180 2RF diltiazem HCl 60 mg tablet 60 mg PO TID Qty: 90 1RF prednisolone acetate 1 % drops,suspension 1 drp ophthalmic (eye) DAILY Rx Instructions: USE IN RIGHT EYE DAILY Discharge Orders: Discharge ED (Routine); Ordered 03/11/22 Ordered By: Nolberto Chicas Referrals: Princess Grande MD [Primary Care Provider] - 1-3 days Coding Level of Care Code ED Speech Therapist Early Intervention for Chg Fwd Exam Comprehensive
[2022-03-11 00:35] LABS: Nucleated Red Blood Cells % 0 %
[2022-03-11 00:50] LABS: Basophils % 0.3 %; Eosinophils # 0.4 10^3/uL (0.0-0.8); Eosinophils % 6.2 %; Hematocrit 38.2 % (37.0-47.0); Hemoglobin 11.6 g/dL (11.5-15.3); Lymphocytes # 2.8 10^3/uL (0.8-4.8); Lymphocytes % 39.7 %; Mean Corpuscular HGB Conc 30.4 g/dL (30.0-36.0); Mean Corpuscular Hemoglobin 30.1 pg (28.0-34.0); Mean Platelet Volume 9.9 fL (7.4-10.4); Monocytes # 0.6 10^3/uL (0.2-0.9); Monocytes % 8.3 %; Neutrophils # 3.24 10^3/uL (1.8-7.7); Neutrophils % 45.4 %; Platelet Count 231 10^3/cmm (130-400); Red Blood Count 3.86 10^6/uL (4.1-5.3); Red Cell Distribution Width 13.4 % (12.1-15.1); White Blood Count 7.1 10^3/uL (4.0-10.0)
[2022-03-11 00:52] VITALS: BP 154/74; PULSE 80; RESP 18; O2SAT 96
[2022-03-11 01:05] LABS: INR 3.36 (0.8-1.2)
[2022-03-11 01:19] LABS: Bilirubin Urine 1+ (Negative); Blood Urine 3+ (Negative); Glucose Urine UA Norm (Normal); Ketones Urine 1+ (Negative); Nitrate Urine Positive (Negative); Protein Urine 3+ (Negative); Specific Gravity, Urine 1.015 (1.005-1.030); Urine Appearance Cloudy (CLEAR); Urine Color Brown (Yellow); Urobilinogen Urine 1 mg/dL (Negative); pH Urine 6.5 (5-7)
[2022-03-11 01:20] LABS: Add Urine Culture? Yes; Add Urine Microscopic? YES; Bacteria Urine 3+ /hpf; Leukocyte Esterase Urine 1+ (Negative); RBC Urine TOO NUMEROUS TO CNT /hpf (0-2); WBC Urine 25-40 /hpf (0-5)
[2022-03-11 01:30] VITALS: BP 127/78; PULSE 76; O2SAT 94
[2022-03-11 01:38] LABS: Alanine Aminotransferase 11 U/L (0-33); Albumin Level 3.7 g/dL (3.5-5.2); Alkaline Phosphatase 104 U/L (35-105); Aspartate Amino Transferase 21 U/L (0-32); Blood Urea Nitrogen 14 mg/dL (8-23); Calcium 9.8 mg/dL (8.5-10.5); Carbon Dioxide 26 mmol/L (22-29); Chloride 100 mmol/L (98-107); Globulin 3.3 g/dL (1.3-4.6); Glucose 129 mg/dL (65-115); Lipase 18 U/L (13-60); Osmolality Calculated 286 mOsm/kg (285-295); Sodium 137 mmol/L (136-145); Total Bilirubin 0.5 mg/dL (0.15-1.2)
[2022-03-11] MEDS: cefTRIAXone 1,000 MG in sodium chloride 0.9% (plus) 50 ML 100 MG IV (01:51)
[2022-03-11 02:02] VITALS: BP 127/78; PULSE 79; RESP 18; O2SAT 94
== END 2022-03-11 12:22 | disposition home or self-care (01) ==
PROVIDERS: Emergency Medicine; Emergency Provider Emergency Medicine; PCP Family Medicine
DX: N39.0 Urinary tract infection, site not specified (principal); R31.0 Gross hematuria; Z79.01 Long term (current) use of anticoagulants; I10 Essential (primary) hypertension
CPT/HCPCS: 80053; 81001; 83690; 85025; 85610; 87077; 87086; 87186; 96365; 99284; J0696

== ENCOUNTER 2022-03-11 08:55 | Inpatient (IN) | payer MEDICARE, OTHER, SELFPAY ==
[2022-03-11] VITALS (11 sets, daily range): BP systolic 98–146; BP diastolic 52–98; PULSE 73–96; RESP 17–25; TEMP 36.4–36.6; O2SAT 91–97; BMI 50.8
--- NOTE | 2022-03-11 08:58 | CTR_ITS ---
PROCEDURE INFORMATION: Exam: CT Abdomen And Pelvis With Contrast Exam date and time: 03/11/2022 9:31 AM Age: 81 years old Clinical indication: Abdominal pain; Generalized; Additional info: Abd pain TECHNIQUE: Imaging protocol: Computed tomography of the abdomen and pelvis with contrast. Total images: 1 Radiation optimization: All CT scans at this facility use at least one of these dose optimization techniques: automated exposure control; mA and/or kV adjustment per patient size (includes targeted exams where dose is matched to clinical indication); or iterative reconstruction. Contrast material: OMNI 350; Contrast volume: 100 ml; Contrast route: INTRAVENOUS (IV); COMPARISON: CR XR chest 1V portable [id number] 10/29/2021 1:13 AM RADIATION DOSE METRICS: Total DLP (mGy-cm): 1088.53 FINDINGS: Heart: Cardiomegaly. Diaphragm: A small hiatal hernia is present. Liver: Normal. No mass. Gallbladder and bile ducts: Prior cholecystectomy noted. Pancreas: Normal. No ductal dilation. Spleen: Normal. No splenomegaly. Adrenal glands: Normal. No mass. Kidneys and ureters: 13 mm largest cyst noted in a left kidney that has multiple simple renal cysts. No further evaluation required. Stomach and bowel: Incidental duodenal diverticulum noted. Colonic diverticulosis is present without diverticulitis. Appendix: No evidence of appendicitis. Intraperitoneal space: Unremarkable. No free air. No significant fluid collection. Vasculature: Mild atherosclerotic disease is evident. Incidental phleboliths noted. Lymph nodes: Unremarkable. No enlarged lymph nodes. Urinary bladder: Unremarkable as visualized. Reproductive: Fibroid uterus. Bones/joints: Moderate spinal degenerative changes. L4-S1 degenerative disc disease with disc space narrowing and osteophyte formation. Facet joint degenerative changes are present. Soft tissues: Unremarkable. CT/CT abdomen pelvis w con* [id number] IMPRESSION: 1. Cardiomegaly. 2. No acute intra-abdominal pathology. COMMENTS: Consistent with the [employer]'s Incidental Findings Committee white paper (J Am Jon Radiol 2018): Any incidental renal lesion less than 1 cm or classified as too small to characterize, or any incidental cystic renal lesion characterized as simple-appearing, is likely benign. No follow-up imaging is recommended for these lesions per consensus recommendations based on imaging criteria.
[2022-03-11] MEDS: sodium chloride 0.9% 1,000 ML 999 ML IV (09:19)
[2022-03-11 09:34] LABS: Basophils % 0.3 %; Eosinophils # 0.3 10^3/uL (0.0-0.8); Eosinophils % 4.3 %; Hemoglobin 9.2 g/dL (11.5-15.3); Lymphocytes # 1.9 10^3/uL (0.8-4.8); Lymphocytes % 30.6 %; Mean Corpuscular HGB Conc 30.7 g/dL (30.0-36.0); Mean Corpuscular Hemoglobin 30.7 pg (28.0-34.0); Mean Platelet Volume 10.1 fL (7.4-10.4); Monocytes # 0.5 10^3/uL (0.2-0.9); Monocytes % 8.5 %; Neutrophils # 3.48 10^3/uL (1.8-7.7); Neutrophils % 55.8 %; Nucleated Red Blood Cells % 0 %; Platelet Count 224 10^3/cmm (130-400); Red Cell Distribution Width 13.5 % (12.1-15.1); White Blood Count 6.2 10^3/uL (4.0-10.0)
[2022-03-11] MEDS: iohexol 350 mg/mL 500 mL Btl (per mL) IV (09:34)
--- NOTE | 2022-03-11 09:46 | ED_ITS ---
HPI - GI Bleed General: Chief complaint: GI Bleed Stated complaint: BLOOD IN STOOL Time Seen by Provider: 03/11/22 08:58 History of Present Illness: 81-year-old female presents to the emergency room with complaint of bright red blood per rectum. She was in last night complaining of hematuria was found to have a cystitis and started on oral antibiotics. Earlier in the week she had an elevated INR at 3.45. It is slightly improved last night at 3.36. Patient is on chronic oral an ticoagulation for atrial fibrillation. She had held her Coumadin since Sunday 4 days ago. MD complaint: gross hematochezia Onset (ago): hour(s) Relieving factors: none Exacerbating factors: none Context: anticoagulant use Associated symptoms: Reports nausea and poor appetite; Denies abdominal pain, chills, easy bruising, epistaxis, fever(s), headache(s), malaise, other bleeding, rash, syncope or vomiting Treatments Prior to Arrival: none Review of Systems Const: Reports: fatigue; Denies: fever(s), chills or malaise ENMT: Denies: epistaxis Card: Denies: chest pain, palpitations, irregular heart rhythm, edema or syncope Resp: Denies: dyspnea, productive cough or non-productive cough GI: Reports: nausea and hematochezia; Denies: abdominal pain or vomiting : Denies: flank pain, difficulty voiding, dysuria, urinary frequency or urinary urgency Skin/Breast: Denies: rash Neuro: Denies: headache(s) Edgar/Lymph: Denies: easy bruising PFSH ED PFSH: Medical History Anxiety Bradycardia by electrocardiogram Chronic atrial fibrillation Hypercholesteremia Hypertension Social History Smoking and tobacco status: never smoked Alcohol intake: never Physical Exam Const: GENERAL APPEARANCE: cooperative and comfortable ORIENTATION/CONSCIOUSNESS: Yes awake, Yes oriented to person, Yes oriented to place and Yes oriented to time HENMT: COMMON NORMALS: normocephalic, atraumatic, hearing grossly normal bilaterally, external ears normal, EAC's normal, TM's normal bilaterally and Normal nasal mucous membranes and turbinates present HEAD & SCALP: nor mocephalic and atraumatic NOSE: Normal nasal mucous membranes and turbinates present EXTERNAL EAR: Yes external ears normal EXTERNAL AUDITORY CANAL: EAC's normal TYMPANIC MEMBRANE: TM's normal bilaterally Eye: COMMON NORMALS: Equal, round and reactive pupils present, EOMs intact bilaterally, conjunctivae normal and no scleral icterus CONJUNCTIVA: Yes conjunctivae normal PUPIL: Yes Equal, round and reactive pupils present Neck/C-Spine: COMMON NORMALS: full ROM, no lymphadenopathy and supple Lymph: LYMPHATIC: no lymphadenopathy noted and no lymphedema noted Resp: COMMON NORMALS: normal respiratory effort, No retractions, No use of accessory muscles and clear to auscultation bilaterally AUSCULTATION: clear to auscultation bilaterally Cardio: COMMON NORMALS: regular rate, regular rhythm and No murmurs present (Cardio) RATE: regular rate RHYTHM: regular rhythm GI: COMMON NORMALS: Soft to palpation and No hepatosplenomegaly present AUSCULTATION: Yes normoactive bowel sounds PALPATION: Yes Soft to palpation, No Tenderness to palpation present (GI), No Guarding due to palpation present (GI) and Yes No hepatosplenomegaly present Extremity: COMMON NORMALS: normal to inspection, capillary refill normal, no clubbing, cyanosis or edema, no calf tenderness and no pedal edema Neuro: SENSORIUM/ORIENTATION: Yes oriented to person, Yes oriented to place and Yes oriented to time Skin: COMMON NORMALS: no rashes or lesions noted GENERAL SKIN EXAM: no rashes or lesions noted Course Vital Signs: Vital signs: Vital Signs Temperature 97.9 F 03/11/22 15:44 Pulse Rate 83 03/11/22 15:42 Respiratory Rate 18 03/11/22 15:44 Blood Pressure 115/70 03/11/22 15:44 Pulse Oximetry 95 03/11/22 15:44 Oxygen Delivery Me thod 03/11/22 09:01 MDM - GI Bleed Medical Decision Making Significant drop in hemoglobin from last night. Will give vitamin K and FFP discussed with surgery and hospitalist will admit. Patient stable at this point. Lab Data : 03/11/22 15:04 03/11/22 09:31 Radiology Impressions Abdomen/Pelvis CT 03/11/22 08:58 IMPRESSION: 1. Cardiomegaly. 2. No acute intra-abdominal pathology. COMMENTS: Consistent with the [place]'s Incidental Findings Committee white paper (J Am Jon Radiol 2018): Any incidental renal lesion less than 1 cm or classified as too small to characterize, or any incidental cystic renal lesion characterized as simple-appearing, is likely benign. No follow-up imaging is recommended for these lesions per consensus recommendations based on imaging criteria. Laboratory Results WBC 6.2 10^3/uL (4.0-10.0) 03/11/22 09:31 RBC 3.00 10^6/uL (4.1-5.3) L 03/11/22 09:31 Hgb 9.2 g/dL (11.5-15.3) L 03/11/22 09:31 Hct 30.0 % (37.0-47.0) L 03/11/22 09:31 MCV 100.0 fl (81-99) H 03/11/22 09:31 MCH 30.7 pg (28.0-34.0) 03/11/22 09:31 MCHC 30.7 g/dL (30.0-36.0) 03/11/22 09:31 RDW 13.5 % (12.1-15.1) 03/11/22 09:31 Plt Count 224 10^3/cmm (130-400) 03/11/22 09:31 MPV 10.1 fL (7.4-10.4) 03/11/22 09:31 Neut % (Auto) 55.8 % 03/11/22 09:31 Lymph % (Auto) 30.6 % 03/11/22 09:31 Glasscock % (Auto) 8.5 % 03/11/22 09:31 Eos % (Auto) 4.3 % 03/11/22 09:31 Baso % (Auto) 0.3 % 03/11/22 09:31 Neut # (Auto) 3.48 10^3/uL (1.8-7.7) 03/11/22 09:31 Lymph # (Auto) 1.9 10^3/uL (0.8-4.8) 03/11/22 09:31 Glasscock # (Auto) 0.5 10^3/uL (0.2-0.9) 03/11/22 09:31 Eos # (Auto) 0.3 10^3/uL (0.0-0.8) 03/11/22 09:31 Baso # (Auto) 0.0 10^3/uL (0.0-0.1) 03/11/22 09:31 Nucleated RBC % (auto) 0 % 03/11/22 09:31 Nucleated RBCs # 0.0 /100WBC 03/11/22 09:31 PT 34.40 SECONDS (12.1-14.9) H 03/11/22 09:31 INR 3.37 (0.8-1.2) H 03/11/22 09:31 APTT 38.2 SECONDS (23.9-36.7) H 03/11/22 09:31 Sodium 138 mmol/L (136-145) 03/11/22 09:31 Potassium 4.2 mmol/L (3.5-5.1) 03/11/22 09:31 Chloride 104 mmol/L (98-107) 03/11/22 09:31 Carbon Dioxide 27 mmol/L (22-29) 03/11/22 09:31 Anion Gap 11.2 (5-19) 03/11/22 09:31 BUN 16 mg/dL (8-23) 03/11/22 09:31 Creatinine 0.9 mg/dL (0.5-0.9) 03/11/22 09:31 GFR Calculation Not Reportable 03/11/22 09:31 Glucose 137 mg/dL (65-115) H 03/11/22 09:31 Calculated Osmolality 289 mOsm/kg (285-295) 03/11/22 09:31 Calcium 9.0 mg/dL (8.5-10.5) 03/11/22 09:31 Total Bilirubin 0.4 mg/dL (0.15-1.2) 03/11/22 09:31 AST 17 U/L (0-32) 03/11/22 09:31 ALT 8 U/L (0-33) 03/11/22 09:31 Alkaline Phosphatase 83 U/L (35-105) 03/11/22 09:31 Total Protein 5.6 g/dL (6.6-8.7) L 03/11/22 09:31 Albumin 3.1 g/dL (3.5-5.2) L 03/11/22 09:31 Globulin 2.5 g/dL (1.3-4.6) 03/11/22 09:31 Blood Type A Positive 03/11/22 10:43 Rho(D) Type Positive 03/11/22 10:43 Discharge Plan Discharge Patient Disposition: Admitted As Inpatient Admit Provider: Laci Alcantara Clinical Impression: Acute lower GI bleeding, Chronic atrial fibrillation, Over-anticoagulated Condition: Stable Coding Level of Care Code ED Transfer And Line Up Worker for Carlyn Villagomez
[2022-03-11 09:52] LABS: INR 3.37 (0.8-1.2); Partial Thromboplastin Time 38.2 SECONDS (23.9-36.7)
[2022-03-11 09:57] LABS: Alanine Aminotransferase 8 U/L (0-33); Albumin Level 3.1 g/dL (3.5-5.2); Alkaline Phosphatase 83 U/L (35-105); Anion Gap 11.2 (5-19); Aspartate Amino Transferase 17 U/L (0-32); Blood Urea Nitrogen 16 mg/dL (8-23); Carbon Dioxide 27 mmol/L (22-29); Chloride 104 mmol/L (98-107); Globulin 2.5 g/dL (1.3-4.6); Glucose 137 mg/dL (65-115); Osmolality Calculated 289 mOsm/kg (285-295); Potassium 4.2 mmol/L (3.5-5.1); Sodium 138 mmol/L (136-145); Total Bilirubin 0.4 mg/dL (0.15-1.2); Total Protein 5.6 g/dL (6.6-8.7)
--- NOTE | 2022-03-11 10:21 | PM.CONSULT ---
Providers/Reason For Consult Consulting Physician/Specialty*: Chace Dunbar MD Reason for Consult*: Lower GI bleed Requesting Physician: Dr. Max Primary Care Provider: Princess Grande MD History of Present Illness History of Present Illness Ms. Yadira Krishnan is a pleasant 81 year old female presents to the emergency department with lower GI bleed and drifting of H&H. Patient has been on chronic warfarin therapy for atrial fibrillation. Apparently she presented to the ER yesterday with gross hematuria with higher values of INR that was reported last week to be 6.4 then trending down to 4+. It was evaluated further and her INR went down to 3.36 and treatment for UTI was initiated. Patient was discharged and she comes today emergency department complaining of bright red blood per rectum. It was witnessed. Blood work was done showed hemoglobin of 9.2, platelet counts of 224. And INR of 3.[address] of the abdomen and pelvis that did show 1. Cardiomegaly. 2. No acute intra-abdominal pathology. General surgery was consulted for further evaluation. And potential endoscopic intervention. Meanwhile patient will be admitted to the hospitalist service for further resuscitation and reversal of the INR. Was seen and evaluated in the emergency department room #12 Review of Systems General: Reports: 10 or more systems reviewed and unremarkable except in HPI and below Medications/Allergies Home Medications Medication Instructions Recorded Confirmed Last Taken Type prednisolone acetate 1 % eye 1 drp ophthalmic (eye) DAILY 10/28/20 03/11/22 03/10/22 History drops,suspension furosemide 20 mg tablet 20 mg PO DAILY PRN edema #30 tabs 06/08/21 03/11/22 07/12/21 Rx alprazolam 0.25 mg tablet 0.25 mg PO BID PRN anxiety #14 tabs 07/14/21 03/11/22 Unknown Rx atorvastatin 20 mg tablet 20 mg PO DAILY 90 days #90 tabs 09/14/21 03/11/22 03/10/22 Rx montelukast 10 mg tablet 10 mg PO DAILY #90 tabs 10/21/21 03/11/22 03/10/22 Rx (Singulair) warfarin 4 mg tablet 4 mg PO DAILY #90 tabs 11/30/21 03/11/22 03/10/22 Rx losartan 50 mg tablet 50 mg PO DAILY 90 days #90 tabs 01/03/22 03/11/22 03/10/22 Rx diltiazem HCl 60 mg tablet 60 mg PO TID PRN Blood Pressure 03/11/22 03/11/22 Unknown History metoprolol tartrate 50 mg tablet 50 mg PO BID PRN heart rate 03/11/22 03/11/22 Unknown History Allergies Allergy/AdvReac Type Severity Reaction Status Date / Time No Known Allergies Allergy Verified 03/11/22 10:25 PFSH Acute PFSH: Medical History Anxiety Bradycardia by electrocardiogram Chronic atrial fibrillation Hypercholesteremia Hypertension Social History Smoking and tobacco status: never smoked Alcohol intake: never Vitals/I&O/Wt Last Vital Signs Temp 97.9 F 03/11/22 09:01 Pulse 73 03/11/22 09:01 Resp 18 03/11/22 09:01 BP 146/98 03/11/22 09:01 Pulse Ox 97 03/11/22 09:01 O2 Del Method 03/11/22 09:01 Weight last 48 hrs Weight 278 lb Physical Exam Const: COMMON NORMALS: no acute distress and patient oriented x3 GENERAL APPEARANCE: cooperative ORIENTATION/CONSCIOUSNESS: Yes awake, Yes oriented to person, Yes oriented to place and Yes oriented to time HENMT: COMMON NORMALS: normocephalic HEAD & SCALP: normocephalic Eye: COMMON NORMALS: Equal, round and reactive pupils present and no scleral icterus PUPIL: Yes Equal, round and reactive pupils present Lymph: LYMPHATIC: no lymphadenopathy noted Chest: COMMONS NORMALS: normal inspection of the chest Resp: COMMON NORMALS: normal respiratory effort and clear to auscultation bilaterally AUSCULTATION: clear to auscultation bilaterally Cardio: COMMON NORMALS: S1 normal heart sound present and S2 normal heart sound present; negative for No murmurs present (Cardio) HEART SOUNDS: S1 normal heart sound present and S2 normal heart sound present GI: COMMON NORMALS: Soft to palpation; negative for No hepatosplenomegaly present INSPECTION: Yes normal to inspection PALPATION: Yes Soft to palpation, No Firmness to palpation present (GI), No Tenderness to palpation present (GI), No Guarding due to palpation present (GI), No Rigid due to palpation and No No hepatosplenomegaly present Neuro: COMMON NORMALS: patient oriented x3 SENSORIUM/ORIENTATION: Yes oriented to person, Yes oriented to place and Yes oriented to time Psych: COMMON NORMALS: mental status grossly normal Skin: COMMON NORMALS: no rashes or lesions noted GENERAL SKIN EXAM: no rashes or lesions noted Data : 03/11/22 09:31 03/11/22 09:31 A&P Assessment and plan (1) Lower GI bleed: Plan of care; After thorough history and physical examination and reviewing the chart and images with my personal interpretation, plan to perform a diagnostic esophagogastroduodenoscopy and diagnostic colonoscopy with possible biopsy and possible polypectomy. Once patient is medically appropriate and INR has been reversed. I discussed with the patient in detail the risks,benefits,alternatives and indications.The risk of aspiration, bleeding, soft tissue injury, perforation of the stomach/esophagus/colon missed lesions and other potential concomitant complications were explained to the patient in details also the potential need for Thoracotomy and or Laproscoy/Laparotomy to repair any related complications including but not limited to colectomy and or Closotomy. The patient understood this well and did agree to proceed. Rationale was carefully and clearly discussed with the patient.Appropriate informed consent have been reviewed and signed Verbal and written Instructions were given to the patient for colonoscopy prep Close cardiac monitoring Repeat H&H every 6 hour Strict I's and O's Blood transfusion per protocol Assurance and education All questions have been answered and all concerns have been addressed to patient's satisfaction. Coding Level of Care Code Acute [employer] Gatherer [facility] Diagnoses Lower GI bleed K92.2
[2022-03-11] MEDS: phytonadione (ADULT) 10 mg/mL Ampule 1 mL PO (10:53)
--- NOTE | 2022-03-11 11:23 | PC.NURSE ---
Report given to [facility] RN who will be assuming care for patient this time.
[2022-03-11] MEDS: D5-NS 0.45% + KCL 20 mEq 20 MEQ/1,000 ML BAG 100 MEQ IV ×2 (13:33→20:10)
--- NOTE | 2022-03-11 14:40 | P.HP_ITS ---
Providers/Chief Complaint Admitting Physician: Laci Alcantara MD Primary Care Provider: Princess Grande MD Chief Complaint: BLOOD IN STOOL History of Present Illness Yadira Krishnan is a 81 year old female with PMH of Chronic A.Fib on warfarin at home, HTN, DLD was brought in with c/o active bright red per rectal as well as hematuria, patient denied any chest pain, sob, nausea, vomiting abdominal pain.Patient was in ER yesterday with gross hematuria, patient is experincing supratherapetic INR since last week but it was trending down, last night her INR was 3.6, he was discharged home unfortunately had to come back. Upon arrival in the ER he h&h was : 9.2/30 , P/C : 224.?INR of 3.37. Pertinent Imaging studies : CT of the abdomen and pelvis No acute intra-abdominal pathology. Patient received Vitamin K PO as well as 1 FFP. When I examined the patient she had 1 episode of BRBPR with clots, H/H so far has been stable. Review of Systems General: Reports: 10 or more systems reviewed and unremarkable except in HPI and below Const: Denies: fever(s), chills, body aches, change in appetite or diaphoresis Card: Denies: palpitations, edema, swelling of feet/ankles, dyspnea on exertion, orthopnea or leg pain with exertion Resp: Denies: dyspnea, productive cough, wheezing or pain on inspiration GI: Denies: abdominal pain, nausea, vomiting, diarrhea or constipation : Denies: flank pain Musc: Denies: back pain, extremity pain or extremity swelling Neuro: Denies: headache(s) Medications/Allergies Home Medications Medication Instructions Recorded Confirmed Last Taken Type prednisolone acetate 1 % eye 1 drp ophthalmic (eye) DAILY 10/28/20 03/11/22 03/10/22 History drops,suspension furosemide 20 mg tablet 20 mg PO DAILY PRN edema #30 tabs 06/08/21 03/11/22 07/12/21 Rx alprazolam 0.25 mg tablet 0.25 mg PO BID PRN anxiety #14 tabs 07/14/21 03/11/22 Unknown Rx atorvastatin 20 mg tablet 20 mg PO DAILY 90 days #90 tabs 09/14/21 03/11/22 03/10/22 Rx montelukast 10 mg tablet 10 mg PO DAILY #90 tabs 10/21/21 03/11/22 03/10/22 Rx (Singulair) warfarin 4 mg tablet 4 mg PO DAILY #90 tabs 11/30/21 03/11/22 03/10/22 Rx losartan 50 mg tablet 50 mg PO DAILY 90 days #90 tabs 01/03/22 03/11/22 03/10/22 Rx diltiazem HCl 60 mg tablet 60 mg PO TID PRN Blood Pressure 03/11/22 03/11/22 Unknown History metoprolol tartrate 50 mg tablet 50 mg PO BID PRN heart rate 03/11/22 03/11/22 Unknown History Allergies Allergy/AdvReac Type Severity Reaction Status Date / Time No Known Allergies Allergy Verified 03/11/22 10:25 PFSH Acute PFSH: Medical History Anxiety Bradycardia by electrocardiogram Chronic atrial fibrillation Hypercholesteremia Hypertension Social History Smoking and tobacco status: never smoked Alcohol intake: never Vitals/I&O/Wt Last Vital Signs Temp 97.9 F 03/11/22 09:01 Pulse 79 03/11/22 11:15 Resp 25 H 03/11/22 11:15 BP 125/74 03/11/22 11:15 Pulse Ox 96 03/11/22 11:15 O2 Del Method 03/11/22 09:01 03/10/22 03/11/22 03/11/22 22:59 06:59 14:59 Intake Total 1000 / 1000 Balance 1000 / 1000 Weight last 48 hrs Weight 126.099 kg Physical Exam Const: COMMON NORMALS: patient oriented x3 Resp: COMMON NORMALS: clear to auscultation bilaterally AUSCULTATION: clear to auscultation bilaterally Cardio: COMMON NORMALS: regular rate, regular rhythm, S1 normal heart sound present, S2 normal heart sound present, No gallops present (Cardio), No murmurs present (Cardio), No rub (Cardio) and Peripheral pulses 2+ throughout RATE: regular rate RHYTHM: regular rhythm HEART SOUNDS: S1 normal heart sound present and S2 normal heart sound present PERIPHERAL PULSES: Peripheral pulses 2+ throughout GI: COMMON NORMALS: Normal to inspection, nondistended, normoactive bowel sounds present, Soft to palpation, non-tender, No hepatosplenomegaly present and no masses AUSCULTATION: Yes normoactive bowel sounds PALPATION: Yes Soft to palpation and Yes No hepatosplenomegaly present RECTAL EXAM: deferred Extremity: COMMON NORMALS: no clubbing, cyanosis or edema and no pedal edema Data : 03/11/22 15:04 03/11/22 09:31 A&P Assessment and plan (1) Lower GI bleed: (2) Gross hematuria: (3) Urinary tract infection: (4) Congestive heart failure: (5) Chronic atrial fibrillation: (6) Hypertension: Plan 81 year old female with PMH of Chronic A.Fib on warfarin at home, HTN, DLD was brought in with c/o active bright red per rectal as well as hematuria, patient d enied any chest pain, sob, nausea, vomiting abdominal pain.Patient was in ER yesterday with gross hematuria, patient is experincing supratherapetic INR since last week but it was trending down, last night her INR was 3.6, he was discharged home unfortunately had to come back. Assessment: LGIB Hematuria supratherapetic INR Acute Blood loss Anemia Chronic A.Fib on warfarin at home HTN Plan : Transfuse 1 FFP Has received I.V Vitamin :K as well as Po Monitor H&h q6h Monitor PT/INR Follow Urine Culture Hold Warfarin Transfuse to manitain HB>7 If she will continue to bleed then will have to repeat FFP, and possibly give PCC. NPO Protonix 40 mg q12h I.V On Ceftriaxone 1 gm I.V Daily Surgery on board for Scope. Code Status :Full code DVT PPX: ON SCDS Attestations Medical Necessity Statement*: Patient needs to be in hospital for the management of G/I Bleed. Anticipated [place] greater then 2 midnights, Time Spent in Patient Care: Greater than 35 minutes (>than 50% of time spent in counselling and/or direct pt care on unit) . Coding Level of Care Code Acute Marble Polisher Hand for [facility] Fwd Exam Detailed Diagnoses Lower GI bleed K92.2 Gross hematuria R31.0 Urinary tract infection N39.0 Congestive heart failure I50.9 Chronic atrial fibrillation I48.20 Hypertension I10
[2022-03-11 15:18] LABS: Hemoglobin 9.5 g/dL (11.5-15.3)
[2022-03-11] MEDS: cefTRIAXone 1,000 MG in sodium chloride 0.9% (plus) 50 ML 100 MG IV (15:52)
[2022-03-11] MEDS: pantoprazole 40 mg SDV IVP (15:52)
[2022-03-11] MEDS: phytonadione (ADULT) 5 MG in sodium chloride 0.9% 50 ML 153 MG IV (16:05)
--- NOTE | 2022-03-11 20:21 | PC.NURSE ---
Upon arriving on shift, patient has Golytely at bedside half empty. Patient states I can't drink anymore of that stuff. Patient encouraged and educated importance of finishing bowel prep. Patient stated okay I'll drink it, but it may take me a little bit.
[2022-03-11 21:26] LABS: Hematocrit 31.2 % (37.0-47.0); Hemoglobin 9.7 g/dL (11.5-15.3)
[2022-03-12] VITALS (14 sets, daily range): BP systolic 99–152; BP diastolic 42–69; PULSE 62–76; RESP 16–18; TEMP 36.5–37.3; O2SAT 93–96
--- NOTE | 2022-03-12 00:51 | PC.NURSE ---
Patient had long pause on monitor (placed in paper chart). Patient states that she feels fine. Blood pressure 93/53. Heart rate now 61. Oxygen [address] Hector notified. No visible blood in stools during my shift so far. See orders.
--- NOTE | 2022-03-12 01:18 | ECG_ITS ---
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 Measurements Intervals [place] Rate: 66 P: 0 CT: 0 QRS: 35 QRSD: 86 T: 85 QT: 423 QTc: 444 Interpretive Statements ATRIAL FIBRILLATION NONSPECIFIC ST & T-WAVE ABNORMALITY ABNORMAL RHYTHM ECG Compared to ECG 02/25/2022 22:16:25 T-wave abnormality now present ST (T wave) deviation no longer present Electronically Signed On 03-12-2022 22:24:40 GEAR TOOTH LAPPING MACHINE OPERATOR by Tristan Adkins M.D. [id number]
[2022-03-12 01:19] LABS: Hematocrit 24.3 % (37.0-47.0); Hemoglobin 7.3 g/dL (11.5-15.3)
--- NOTE | 2022-03-12 01:29 | W.PM.EVENTAC ---
Event Note Event Note: Over 4.5-second pause/asystole followed by 2 shorter pauses incidentally caught on telemetry at 00 39. She was not aware. At home on Cardizem, Toprol, which has been on hold. Does have history of atrial fibrillation, and chronic intermittent A. fib. On telemetry intermittent sinus rhythm and atrial fibrillation. Pacer pads applied, continue telemetry monitoring, checking twelve-lead EKG, magnesium, TSH, rechecking hemoglobin. Trop. Will need evaluation by cardiology.
--- NOTE | 2022-03-12 01:31 | PC.NURSE ---
9.7 to 7.3 drop in hemoglobin from [address] Hector notified. Blood ordered.
[2022-03-12 01:33] LABS: Magnesium 1.7 mg/dL (1.7-2.3); Thyroid Stimulating Hormone 3.56 uIU/mL (0.27-4.20)
[2022-03-12 01:41] LABS: Troponin T (5th) Once 35 ng/L (0-10)
--- NOTE | 2022-03-12 01:56 | PC.NURSE ---
Unable to measure urine output or assess color and characteristics of urine due to being mixed with liquid bowel.
[2022-03-12] MEDS: pantoprazole 40 mg SDV IVP ×2 (02:10→16:02)
[2022-03-12 02:15] LABS: INR 1.59 (0.8-1.2)
--- NOTE | 2022-03-12 03:00 | PC.NURSE ---
SCDs placed on patient. After around 2 hours, patient asked to have them removed.
[2022-03-12] MEDS: sodium chloride 0.9% (100 ml) 100 ML (03:16)
--- NOTE | 2022-03-12 05:23 | PC.NURSE ---
Blood transfusion completed at 0520. Lab notified to come draw H&H at 0620.
--- NOTE | 2022-03-12 05:41 | PC.NURSE ---
Heart rate bradycardic in the 50s. Dr. Hector notified.
--- NOTE | 2022-03-12 06:15 | PC.NURSE ---
No visible blood noted in bedpan throughout my shift.
--- NOTE | 2022-03-12 06:43 | PC.NURSE ---
Lab called and notified twice to come draw patient's morning labs.
[2022-03-12 07:00] LABS: Basophils % 0.4 %; Eosinophils # 0.4 10^3/uL (0.0-0.8); Eosinophils % 4.7 %; Hematocrit 28.7 % (37.0-47.0); Hemoglobin 8.8 g/dL (11.5-15.3); Lymphocytes # 2.5 10^3/uL (0.8-4.8); Lymphocytes % 31.7 %; Mean Corpuscular HGB Conc 30.7 g/dL (30.0-36.0); Mean Corpuscular Hemoglobin 30.7 pg (28.0-34.0); Monocytes # 0.9 10^3/uL (0.2-0.9); Neutrophils # 3.92 10^3/uL (1.8-7.7); Neutrophils % 50.8 %; Nucleated Red Blood Cells % 0.3 %; Platelet Count 172 10^3/cmm (130-400); Red Blood Count 2.87 10^6/uL (4.1-5.3); Red Cell Distribution Width 14.1 % (12.1-15.1); White Blood Count 7.7 10^3/uL (4.0-10.0)
--- NOTE | 2022-03-12 07:03 | P.PN_ITS ---
Subjective Subjective: Patient was seen and examined today. Had her colon prep. Apparently overnight she did have a pause for 4 seconds or so on the telemetry. According to the nursing staff patient did not have any symptoms, perhaps to the underlying demand ischemia. No more episodes of bloody bowel movement with a current hemoglobin of 8.8 g/dL patient received at least 2 units of packed RBCs( blood transfusion), FFP and vitamin K and her last INR 1.59. Vitals/I&O/Wt Last Vital Signs Temp 98.0 F 03/12/22 05:20 Pulse 67 03/12/22 05:20 Resp 17 03/12/22 04:00 BP 130/63 03/12/22 05:20 Pulse Ox 93 03/12/22 05:20 O2 Del Method 03/11/22 09:01 03/11/22 03/12/22 03/12/22 22:59 06:59 14:59 Intake Total 881.667 / 1881.667 702 / 2583.667 Balance 881.667 / 1881.667 702 / 2583.667 Weight last 48 hrs Weight 278 lb Physical Exam Narrative: Patient is conscious alert oriented X3 No apparent distress BMI 51 Head and neck examination PERRLA no masses no cervical lymphadenopathy no jaundice Abdomen nontender nondistended soft no organomegaly guarding or rigidity/no signs of peritonitis Morbidly obese Data : 03/12/22 06:48 03/11/22 09:31 A&P Assessment and plan (1) Lower GI bleed: Plan of care; The original plan is to proceed with diagnostic EGD colonoscopy around 8:30 AM in the GI lab, but since the patient had pause on the telemetry and after further discussing the case with Dr. Hector patient will be evaluated by cardiology service prior to any invasive procedure. To have a better un derstanding of her cardiac status. Patient is aware with the plan of care and will continue to coordinate with other services. Assurance and education All questions have been answered and all concerns have been addressed to patient's satisfaction. Attestations Medical Necessity Statement*: Per admitting service Coding Level of Care Code Acute Leadership Program Internship for [facility] Fwd Diagnoses Lower GI bleed K92.2
[2022-03-12 07:19] LABS: Troponin T (5th) Once 39 ng/L (0-10)
[2022-03-12 07:20] LABS: INR 1.47 (0.8-1.2)
[2022-03-12 07:22] LABS: Anion Gap 14.7 (5-19); Blood Urea Nitrogen 8 mg/dL (8-23); Carbon Dioxide 23 mmol/L (22-29); Chloride 103 mmol/L (98-107); Glucose 116 mg/dL (65-115); Magnesium 1.7 mg/dL (1.7-2.3); Osmolality Calculated 283 mOsm/kg (285-295); Potassium 3.7 mmol/L (3.5-5.1); Sodium 137 mmol/L (136-145)
[2022-03-12] MEDS: magnesium sulfate premix 2 GM/50 ML PIGGYBACK IV (09:45)
--- NOTE | 2022-03-12 10:24 | P.CONIM_ITS ---
Providers/Reason For Consult Consulting Physician/Specialty*: CON Adkins MD/cardiology Reason for Consult*: CON Adkins MD/cardiology Requesting Physician: Dr. Hector/Dr. Alcantara Attending Physician: Laci Alcantara MD Primary Care Provider: Princess Grande MD History of Present Illness History of Present Illness Yadira Krishnan is a 81 year old female with a history of chronic intermittent atrial fibrillation, hypertension, dyslipidemia, is admitted to the hospital through the emergency room where she presented with complaints of bright red blood per rectum. Last night, she had an episode of asymptomatic pause of 4.5 seconds on the monitor. Cardiology consult is requested for further cardiac evaluation recommendations. This patient is being treated for atrial fibrillation for the last at least 3 years. She also has high blood pressure and dyslipidemia. She had multiple ER visits recently for various complaints. On 25 of February, she presented to the ER with complaints of palpitation and rapid heartbeat. She was found to be in atrial fibrillation with rapid ventricular rate. She was given IV metoprolol 5 mg which apparently put the heartbeat back into sinus rhythm. She was discharged home on metoprolol and as needed Cardizem. She came back to the emergency room night before last with complaints of painless hematuria. She was found to have features of cystitis. She was placed on antibiotics and was discharged home. Her INR was slightly prolonged. Right after she reached home, she was found to have bright red blood per rectum as she was having a bowel movement. So she came back to the emergency room for this complaint. Currently she is admitted to hospital for further evaluation management. She was seen by Dr. Dunbar for the GI bleed. She is being scheduled for a colonoscopy for further evaluation. Patient denies chest pain or chest tightness. No palpitation, dizziness or syncopal episodes. He has no previous history for coronary disease, myocardial infarction or congestive heart failure. She has history of occasional dizziness but no syncopal episodes. No other specific complaints. No history for sleep apnea. She was found to have the pause while sleeping. Review of Systems Narrative: CONSTITUTIONAL: No fever or chills. EYES: No blurring of vision or other visual disturbances lately. ENT: No hoarseness of voice, auditory disturbances or sore throat. CARDIOVASCULAR: As mentioned above. RESPIRATORY: No significant cough. GASTROINTESTINAL: As mentioned above GENITOURINARY: No dysuria or hematuria. INTEGUMENTARY: No skin rashes or history of skin cancer. NEURO: No transient ischemic attacks or amaurosis. PSYCHIATRIC: No history of psychosis or major depression. HEMATOLOGIC: As mentioned above ENDOCRINE: No history of polyuria or polydipsia. MUSCULOSKELETAL: No recent joint pain or swelling. ALLERGY/IMMUNOLOGY: As mentioned above. Medications/Allergies Home Medications Medication Instructions Recorded Confirmed Last Taken Type prednisolone acetate 1 % eye 1 drp ophthalmic (eye) DAILY 10/28/20 03/11/22 03/10/22 History drops,suspension furosemide 20 mg tablet 20 mg PO DAILY PRN edema #30 tabs 06/08/21 03/11/22 07/12/21 Rx alprazolam 0.25 mg tablet 0.25 mg PO BID PRN anxiety #14 tabs 07/14/21 03/11/22 Unknown Rx atorvastatin 20 mg tablet 20 mg PO DAILY 90 days #90 tabs 09/14/21 03/11/22 03/10/22 Rx montelukast 10 mg tablet 10 mg PO DAILY #90 tabs 10/21/21 03/11/22 03/10/22 Rx (Singulair) warfarin 4 mg tablet 4 mg PO DAILY #90 tabs 11/30/21 03/11/22 03/10/22 Rx losartan 50 mg tablet 50 mg PO DAILY 90 days #90 tabs 01/03/22 03/11/22 03/10/22 Rx diltiazem HCl 60 mg tablet 60 mg PO TID PRN Blood Pressure 03/11/22 03/11/22 Unknown History metoprolol tartrate 50 mg tablet 50 mg PO BID PRN heart rate 03/11/22 03/11/22 Unknown History Allergies Allergy/AdvReac Type Severity Reaction Status Date / Time No Known Allergies Allergy Verified 03/11/22 10:25 Current Medications Generic Name Dose Route Start Last Admin Trade Name Freq PRN Reason Stop Dose Admin Potassium Chloride/Dextrose/Sod Cl 20 meq in 1,000 mls @ 100 mls/hr 03/11/22 11:55 03/11/22 20:10 D5-Ns 0.45% + Kcl 20 Meq IV 100 mls/hr .Q10H LAMONT Administration Ceftriaxone Sodium 1,000 mg/ 50 mls @ 100 mls/hr 03/11/22 15:00 03/11/22 15:52 Sodium Chloride IV 100 mls/hr Q24H LAMONT Administration Protocol Pantoprazole Sodium 40 mg 03/11/22 16:30 03/12/22 02:10 Pantoprazole 40 Mg Sdv IVP 40 mg Q12H LAMONT Administration PFSH Acute PFSH: Medical History Anxiety Bradycardia by electrocardiogram Chronic atrial fibrillation Hypercholesteremia Hypertension Social History Smoking and tobacco status: never smoked Alcohol intake: never Vitals/I&O/Wt Last Vital Signs Temp 98.5 F 03/12/22 08:00 Pulse 64 03/12/22 08:00 Resp 16 03/12/22 08:00 BP 132/66 03/12/22 08:00 Pulse Ox 96 03/12/22 08:00 O2 Del Method 03/12/22 08:00 03/11/22 03/12/22 03/12/22 22:59 06:59 14:59 Intake Total 881.667 / 1881.667 702 / 2583.667 Balance 881.667 / 1881.667 702 / 2583.667 Weight last 48 hrs Weight 278 lb Physical Exam Narrative: GENERAL: The patient is alert and oriented times three. Not in any acute distress. HEENT: No significant pallor, icterus or lymphadenopathy.Oral cavity: There are no mucous membrane lesions. NECK: Trachea appears to be central. No masses noted. No JVD or thyromegaly appreciated. RESPIRATORY: Chest is symmetrical. No intercostals muscle retraction or any accessory muscle activation. There is no chest wall tenderness. Breath sounds are heard bilaterally. No rales or rhonchi heard. No evidence of any c onsolidation. BREASTS: Deferred. HEART: The first heart sound is variable. Second heart sound is normal. No S3.. No S3 or S4. Ejection systolic murmur grade 3 or 6 in the aortic area. No diastolic murmurs.. No pericardial rub ABDOMEN: No vessel pulsations or distention. No tenderness. No organomegaly appreciated. Bowel sounds are normally heard. : Deferred. RECTAL: Deferred. LYMPHATIC: No lymphadenopathy noted in the neck. EXTREMITIES: No edema or cyanosis. No clubbing. MUSCULOSKELETAL: No acute joint deformities or swelling SKIN: There are no significant rashes or ecchymosis NEUROPSYCHIATRIC: The patient is alert and oriented x3. Appears to be in a good mood. No tremors or rigidity noted. Data : 03/12/22 11:30 03/12/22 06:48 Other Labs: Laboratory Last Values WBC 7.7 10^3/uL (4.0-10.0) 03/12/22 06:48 RBC 2.87 10^6/uL (4.1-5.3) L 03/12/22 06:48 Hgb 8.8 g/dL (11.5-15.3) L 03/12/22 06:48 Hct 28.7 % (37.0-47.0) L 03/12/22 06:48 MCV 100.0 fl (81-99) H 03/12/22 06:48 MCH 30.7 pg (28.0-34.0) 03/12/22 06:48 MCHC 30.7 g/dL (30.0-36.0) 03/12/22 06:48 RDW 14.1 % (12.1-15.1) 03/12/22 06:48 Plt Count 172 10^3/cmm (130-400) 03/12/22 06:48 MPV 10.0 fL (7.4-10.4) 03/12/22 06:48 Neut % (Auto) 50.8 % 03/12/22 06:48 Lymph % (Auto) 31.7 % 03/12/22 06:48 [place] % (Auto) 12.0 % 03/12/22 06:48 Eos % (Auto) 4.7 % 03/12/22 06:48 Baso % (Auto) 0.4 % 03/12/22 06:48 Neut # (Auto) 3.92 10^3/uL (1.8-7.7) 03/12/22 06:48 Lymph # (Auto) 2.5 10^3/uL (0.8-4.8) 03/12/22 06:48 [place] # (Auto) 0.9 10^3/uL (0.2-0.9) 03/12/22 06:48 Eos # (Auto) 0.4 10^3/uL (0.0-0.8) 03/12/22 06:48 Baso # (Auto) 0.0 10^3/uL (0.0-0.1) 03/12/22 06:48 Nucleated RBC % (auto) 0.3 % 03/12/22 06:48 Nucleated RBCs # 0.0 /100WBC 03/12/22 06:48 PT 18.20 SECONDS (12.1-14.9) H 03/12/22 06:48 INR 1.47 (0.8-1.2) H 03/12/22 06:48 APTT 38.2 SECONDS (23.9-36.7) H 03/11/22 09:31 Sodium 137 mmol/L (136-145) 03/12/22 06:48 Potassium 3.7 mmol/L (3.5-5.1) 03/12/22 06:48 Chloride 103 mmol/L (98-107) 03/12/22 06:48 Carbon Dioxide 23 mmol/L (22-29) 03/12/22 06:48 Anion Gap 14.7 (5-19) 03/12/22 06:48 BUN 8 mg/dL (8-23) 03/12/22 06:48 Creatinine 0.6 mg/dL (0.5-0.9) 03/12/22 06:48 GFR Calculation Not Reportable 03/12/22 06:48 Glucose 116 mg/dL (65-115) H 03/12/22 06:48 Calculated Osmolality 283 mOsm/kg (285-295) L 03/12/22 06:48 Calcium 8.0 mg/dL (8.5-10.5) L 03/12/22 06:48 Magnesium 1.7 mg/dL (1.7-2.3) 03/12/22 06:48 Total Bilirubin 0.4 mg/dL (0.15-1.2) 03/11/22 09:31 AST 17 U/L (0-32) 03/11/22 09:31 ALT 8 U/L (0-33) 03/11/22 09:31 Alkaline Phosphatase 83 U/L (35-105) 03/11/22 09:31 Troponin T Gen 5 ng/L 39 ng/L (0-10) H 03/12/22 06:48 Total Protein 5.6 g/dL (6.6-8.7) L 03/11/22 09:31 Albumin 3.1 g/dL (3.5-5.2) L 03/11/22 09:31 Globulin 2.5 g/dL (1.3-4.6) 03/11/22 09:31 TSH 3.56 uIU/mL (0.27-4.20) 03/11/22 09:31 Blood Type A Positive 03/11/22 10:43 Rho(D) Type Positive 03/11/22 10:43 Antibody Screen Negative 03/11/22 10:43 Crossmatch See Detail 03/11/22 10:43 Micro: Microbiology 03/11/22 13:47 Urine Culture - Preliminary Urine,Voided Echo: My impression: Normal left ventricular size, systolic function and wall ?thickness, with no regional wall motion abnormalities.? LV ?ejection fraction around 66%.? No gross wall motion ?abnormalities. ?Normal right ventricular size and systolic function. ?Moderate biatrial enlargement. ?Thickened mitral valve. Mild mitral annular calcification. Mild- ?moderate mitral valve regurgitation. ?Mild aortic valve stenosis, mean gradient 8.5 mmHg, NATHAN 1.4 cm squared.? ?Peak velocity of 2.? 3 9 m/s with a peak gradient of 23 and a ?mean gradient of 9 mmHg. ?Mild tricuspid valve regurgitation. ?Moderate pulmonary hypertension.? Estimated pulmonary artery ?peak systolic pressure 67 mmHg ?Mild tricuspid valve regurgitation. ?There is no pericardial effusion. ?No similar previous studies are available for comparison EKG 1: My Interpretation: Sinus rhythm frequent supraventricular ectopics and aberrantly conducted beats. Some nonspecific T wave changes. No acute ST-T changes. EKG computer-generated impression: Abdomen/Pelvis CT 03/11/22 08:58 IMPRESSION: 1. Cardiomegaly. 2. No acute intra-abdominal pathology. COMMENTS: Consistent with the [employer] [employer]'s Incidental Findings Committee white paper (J Am Jon Radiol 2018): Any incidental renal lesion less than 1 cm or classified as too small to characterize, or any incidental cystic renal lesion characterized as simple-appearing, is likely benign. No follow-up imaging is recommended for these lesions per consensus recommendations based on imaging criteria. A&P Assessment and plan (1) Chronic episodic atrial fibrillation: In view of the intermittent atrial fibrillation, I may start the patient on propafenone 1 to 2 mg p.o. every 8 hours. Her heart rate will be closely monitored on telemetry. In view of the history of bradycardia, I may hold off on any AV javier blocking agents. (2) Lower GI bleed: Management as per the primary. The anemia is moderate. Hemoglobin needs to be closely monitored. GI work-up is pending (3) Hypertension: Currently the patient is normotensive. We will continue to monitor blood pressure. (4) Hypercholesteremia: May continue on the current medications. (5) Bradycardia by electrocardiogram: Patient's rhythm will be closely monitored on telemetry. At this point, she may not require a pacemaker. I may do a overnight pulse oximetry to evaluate for any oxygen desaturation, to explain the bradycardia in the night. (6) Aortic valve stenosis: Patient has mild aortic valve stenosis. At this point, she will require intervention. Plan Patient on the patient clinical progress, further recommendations will be made. The echocardiogram was reviewed The patient requires a colonoscopy, it may be appropriate to go ahead with the procedure. Her heart rhythm need to be closely monitored. 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
[2022-03-12] MEDS: potassium chloride premix 100 ML 50 MEQ IV (10:37)
[2022-03-12 11:40] LABS: Hematocrit 30.4 % (37.0-47.0); Hemoglobin 9.1 g/dL (11.5-15.3)
[2022-03-12] MEDS: sodium chloride 0.9% 1,000 ML 75 ML IV (12:32)
--- NOTE | 2022-03-12 13:09 | P.PN_ITS ---
Subjective Subjective: Patient was seen and examined today. Hb dropped to 7.3 last night received 1 U PRBC post transfusion H&H : is being monitored. Patient had significant pause on telemetry last night of 4s, patient was asymptomatic. INR is 1.47. Medications: Medication Review Details: Generic Name Dose Route Start Last Admin Trade Name Bill PRN Reason Stop Dose Admin Ceftriaxone Sodium 1,000 mg/ 50 mls @ 100 mls/ hr 03/11/22 15:00 03/11/22 16:22 Sodium Chloride IV Infused Q24H LAMONT Infusion Protocol Sodium Chloride 1,000 mls @ 75 ml s/hr 03/12/22 11:15 03/12/22 12:32 Sodium Chloride 0.9% IV 75 mls/hr .[id number] LAMONT Administration Pantoprazole Sodiu m 40 mg 03/11/22 16:30 03/12/22 02:10 Pantoprazole 40 Mg Sdv IVP 40 mg Q12H L[facility]ONT Administration Vitals/I&O/Wt Last Vital Signs Temp 99.1 F 03/12/22 11:56 Pulse 69 03/12/22 11:56 Resp 16 03/12/22 11:56 BP 138/69 03/12/22 11:56 Pulse Ox 96 03/12/22 11:56 O2 Del Method 03/12/22 11:56 03/11/22 03/12/22 03/12/22 22:59 06:59 14:59 Intake Total 982.167 / 1981.167 702 / 2684.167 150 / 150 Balance 982.167 / 1981.167 702 / 2684.167 150 / 150 Weight last 48 hrs Weight 126.099 kg Physical Exam Const: COMMON NORMALS: patient oriented x3 Resp: COMMON NORMALS: clear to auscultation bilaterally AUSCULTATION: clear to auscultation bilaterally Cardio: COMMON NORMALS: regular rate, regular rhythm, S1 normal heart sound present, S2 normal heart sound present, No gallops present (Cardio), No murmurs present (Cardio), No rub (Cardio) and Peripheral pulses 2+ throughout RATE: regular rate RHYTHM: regular rhythm HEART SOUNDS: S1 normal heart sound present and S2 normal heart sound present PERIPHERAL PULSES: Peripheral pulses 2+ throughout GI: COMMON NORMALS: Normal to inspection, nondistended, normoactive bowel sounds present, Soft to palpation, non-tender, No hepatosplenomegaly present and no masses AUSCULTATION: Yes normoactive bowel sounds PALPATION: Yes Soft to palpation and Yes No hepatosplenomegaly present RECTAL EXAM: deferred Extremity: COMMON NORMALS: no clubbing, cyanosis or edema and no pedal edema Neuro: COMMON NORMALS: patient oriented x3 Data : 03/12/22 11:30 03/12/22 06:48 Micro: Microbiology 03/11/22 13:47 Urine Culture - Preliminary Urine,Voided A&P Assessment and plan (1) Lower GI bleed: (2) Gross hematuria: (3) Urinary tract infection: (4) Congestive heart failure: (5) Chronic atrial fibrillation: (6) Hypertension: Plan 81 year old female with PMH of Chronic A.Fib on warfarin at home, HTN, DLD was brought in with c/o active bright red per rectal as well as hematuria, patient denied any chest pain, sob, nausea, vomiting abdominal pain.Patient was in ER yesterday with gross hematuria, patient is experincing supratherapetic INR since last week but it was trending down, last night her INR was 3.6, he was discharged home unfortunately had to come back. Assessment: LGIB Hematuria supratherapetic INR Acute Blood loss Anemia Chronic A.Fib on warfarin at home Significant pause on telemetry 4s HTN Plan : Transfuse 1 FFP Has received I.V Vitamin :K as well as Po Monitor H&h q6h Monitor PT/INR Follow Urine Culture Hold Warfarin Transfuse to manitain HB>7 If she will continue to bleed then will have to repeat FFP, and possibly give PCC. Npo after midnight Protonix 40 mg q12h I.V Monitor and correct electrolytes ( k>4 mg>2 ) On Ceftriaxone 1 gm I.V Daily Surgery on board for Scope. 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
--- NOTE | 2022-03-12 14:08 | USCV_ITS ---
Yadira Krishnan Age: 81 Gender: F : 1940 Exam Date: 03/12/2022 15:07 Ordering Phys: Tristan Adkins MD ([email or web address]) Technologist: Serg Aragon Exam Location: [facility] [place] Indication: 4.5 second pause BP: 126 / 73 HR: 66 Rhythm: Sinus Technical Quality: Adequate MEASUREMENTS (Male / Female) Normal Values 2D ECHO LV Diastolic Diameter PLAX 3.7 cm 4.2 - 5.9 / 3.9 - 5.3 cm LV Systolic Diameter PLAX 2.1 cm IVS Diastolic Thickness 1.0 cm 0.6 - 1.0 / 0.6 - 0.9 cm IVS Systolic Thickness 1.3 cm LVPW Diastolic Thickness 1.0 cm 0.6 - 1.0 / 0.6 - 0.9 cm LVPW Systolic Thickness 1.2 cm LVOT Diameter 2.0 cm LV Ejection Fraction 2D Teich 76.1 % LV Ejection Fraction MOD 2C 66.2 % LV Ejection Fraction 2C AL 65.7 % LA Diameter 4.4 cm M-MODE Aortic Annulus Diameter 2.4 cm LA Ao Ratio MM 1.9 MV E Point Septal Separation 0.4 cm DOPPLER AV Peak Velocity 239.0 cm/s LVOT Peak Velocity 87.0 cm/s AV Area Cont Eq vti 1.4 cm squared AV Area Cont Eq pk 1.2 cm squared MV Area PHT 5.0 cm squared Mitral E to A Ratio 4.8 MV E' Velocity 161.0 cm/s Mitral E to LV E' Septal Ratio 16.9 TR Peak Velocity 401.0 cm/s TR Peak Gradient 64.3 mmHg TV Peak E Velocity 217.0 cm/s Right Atrial Pressure 3.0 mmHg Pulmonary Artery Systolic Pressu 67.3 mmHg RV Acceleration Time 0.1 s FINDINGS Left Ventricle Normal left ventricular size, systolic function and wall thickness, with no regional wall motion abnormalities. LV ejection fraction around 66%. No gross wall motion abnormalities Right Ventricle Normal right ventricular size and systolic function. Right Atrium Moderately increased right atrial size. Left Atrium Moderately increased left atrial size. Mitral Valve Thickened mitral valve. Mild mitral annular calcification. Mild- moderate mitral valve regurgitation. Aortic Valve Mild aortic valve stenosis, mean gradient 8.5 mmHg, NATHAN 1.4 cm squared. Peak velocity of 2. 3 9 m/s with a peak gradient of 23 and a mean gradient of 9 mmHg Tricuspid Valve Mild tricuspid valve regurgitation. Pulmonic Valve Pulmonic valve not well visualized. Pericardium No pericardial effusion. Aorta Normal aortic annulus size. IVC Normal inferior vena cava. CONCLUSIONS Normal left ventricular size, systolic function and wall thickness, with no regional wall motion abnormalities. LV ejection fraction around 66%. No gross wall motion abnormalities. Normal right ventricular size and systolic function. Moderate biatrial enlargement. Thickened mitral valve. Mild mitral annular calcification. Mild- moderate mitral valve regurgitation. Mild aortic valve stenosis, mean gradient 8.5 mmHg, NATHAN 1.4 cm squared. Peak velocity of 2. 3 9 m/s with a peak gradient of 23 and a mean gradient of 9 mmHg. Mild tricuspid valve regurgitation. Moderate pulmonary hypertension. Estimated pulmonary artery peak systolic pressure 67 mmHg Mild tricuspid valve regurgitation. There is no pericardial effusion. No similar previous studies are available for comparison Dr Tristan Adkins MD [facility] (Electronically Signed) Final Date: 12 March 2022 18:15 S
[2022-03-12] MEDS: cefTRIAXone 1,000 MG in sodium chloride 0.9% (plus) 50 ML 100 MG IV (16:01)
[2022-03-13] VITALS (9 sets, daily range): BP systolic 104–156; BP diastolic 42–78; PULSE 64–85; RESP 15–18; TEMP 36.1–37.1; O2SAT 92–100
[2022-03-13] MEDS: sodium chloride 0.9% 1,000 ML 75 ML IV ×2 (00:53→21:28)
[2022-03-13] MEDS: pantoprazole 40 mg SDV IVP ×2 (00:53→13:19)
[2022-03-13 05:45] LABS: Basophils % 0.3 %; Eosinophils # 0.5 10^3/uL (0.0-0.8); Hematocrit 25.6 % (37.0-47.0); Lymphocytes # 2.6 10^3/uL (0.8-4.8); Mean Corpuscular HGB Conc 31.3 g/dL (30.0-36.0); Mean Corpuscular Hemoglobin 30.8 pg (28.0-34.0); Mean Corpuscular Volume 98.5 fl (81-99); Mean Platelet Volume 10.2 fL (7.4-10.4); Monocytes # 0.9 10^3/uL (0.2-0.9); Monocytes % 12.4 %; Neutrophils # 3.43 10^3/uL (1.8-7.7); Neutrophils % 45.9 %; Nucleated Red Blood Cells # 0.1 /100WBC; Nucleated Red Blood Cells % 1.1 %; Platelet Count 181 10^3/cmm (130-400); Red Cell Distribution Width 15.1 % (12.1-15.1); White Blood Count 7.5 10^3/uL (4.0-10.0)
[2022-03-13 06:00] LABS: INR 1.31 (0.8-1.2)
[2022-03-13 06:03] LABS: Anion Gap 11.7 (5-19); Blood Urea Nitrogen 7 mg/dL (8-23); Calcium 8.1 mg/dL (8.5-10.5); Carbon Dioxide 24 mmol/L (22-29); Chloride 106 mmol/L (98-107); Glucose 96 mg/dL (65-115); Osmolality Calculated 284 mOsm/kg (285-295); Potassium 3.7 mmol/L (3.5-5.1); Sodium 138 mmol/L (136-145)
--- NOTE | 2022-03-13 12:24 | PC.CHAP ---
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 [] Patient/Family/Request visit [] Outpatient visit [] Follow-up visit [] Physician referral [] Code/Alert [x] Routine visit [] Staff referral [] Actively dying [] Patient sleeping [x] Family support [] [] Out of room [] Palliative care [] [] Receiving care in room [] Pre-surgical visit [] Trauma [] Long length of stay [] ICU visit [] Other: Relational/Emotional Strength [] Patient feels connected with others/family/visitors/staff [] Distress [] Loneliness/isolation [] Abandonment Spirituality of Patient [] Person of [place] [] Attends Latter Day of their [place] [] Believes in Prayer [] Reads Bible or Worship materials [] There are Spiritual issues to be addressed Director Organizational Interventions [x] Prayer [] Active listening [] Non-anxious presence [] Spiritual/emotional support [] Crisis/trauma care [] Spiritual counseling [] Bereavement support [] Provided bereavement packet [] Provided Bible/devotional materials [] Provided toy/stuffed animal, coloring book to patient or family member [] Provided Communion [] Anointing/[place] [] Salvation [x] Completed spiritual assessment [] Other: Impact on Illness or Injury [] Angry [] Fearful [] Anxious [] Often cries [] Exhaustion [] Unable to work [] Unable to attend church [] Unable to walk/stand [] Unable to read [] Unable to drive [] Unable to eat/drink [] Unable to sleep [] Unable to be with family [] Patient intubated [] Other: Summary Time spent with patient
--- NOTE | 2022-03-13 14:20 | PM.PN ---
Subjective Subjective: Overall patient is doing well and got cleared by cardiology and hospitalist service to proceed with endoscopies. Medications: Reviewed: Yes Vitals/I&O/Wt Last Vital Signs Temp 98.3 F 03/13/22 12:00 Pulse 66 03/13/22 12:00 Resp 18 03/13/22 12:00 BP 139/70 03/13/22 12:00 Pulse Ox 92 03/13/22 12:00 O2 Del Method 03/13/22 12:00 03/12/22 03/13/22 03/13/22 22:59 06:59 14:59 Intake Total 530 / 1040 926.25 / 1965. Balance 530 / 1040 926.25 1965. Physical Exam Narrative: Patient is conscious alert oriented X3 No apparent distress BMI 51 Head and neck examination PERRLA no masses no cervical lymphadenopathy no jaundice Abdomen nontender nondistended soft no organomegaly guarding or rigidity/no signs of peritonitis Morbidly obese Data 03/13/22 04:57 03/13/22 04:57 Micro: Microbiology 03/11/22 13:47 Urine Culture - Final Urine,Voided A&P Assessment and plan (1) Lower GI bleed: Plan of care; After thorough history and physical examination and reviewing the chart and images with my personal interpretation, plan to perform a diagnostic esophagogastroduodenoscopy and diagnostic colonoscopy with possible biopsy and possible polypectomy. I discussed with the patient in detail the risks,benefits,alternatives and indications.The risk of aspiration, bleeding, soft tissue injury, perforation of the stomach/esophagus/colon missed lesions and other potential concomitant complications were explained to the patient in details also the potential need for Thoracotomy and or Laproscoy/Laparotomy to repair any related complications including but not limited to colectomy and or Closotomy. The patient understood this well and did agree to proceed. Rationale was carefully and clearly discussed with the patient.Appropriate informed consent have been reviewed and signed Verbal and written Instructions were given to the patient for colonoscopy prep Assurance and education All questions have been answered and all concerns have been addressed to patient's satisfaction. Attestations Medical Necessity Statement*: Per admitting service Coding Level of Care Code Acute Nutrition Services Associate for Chg Fwd Diagnoses Lower GI bleed K92.2
--- NOTE | 2022-03-13 14:32 | P.ANESASSM_ITS ---
Pre-Anesthetic Assessment Height/Weight: Height 1.57 m Weight 126.099 kg Temp Pulse Resp BP Pulse Ox O2 Del Method 97.0 F L 77 16 104/78 97 03/13/22 14:31 03/13/22 14:31 03/13/22 14:31 03/13/22 14:31 03/13/22 14:31 03/13/22 12:00 Preop Diagnosis: GI bleeding Operation Date: 03/12/22 08:30 Proposed Procedures p EGD(Bilateral) - Chace Dunbar MD s Colonoscopy(Bilateral) - Chace Dunbar MD Operation Date: 03/13/22 13:30 Proposed Procedures p EGD(Not Applicable) - Chace Dunbar MD s Colonoscopy(Not Applicable) - Chace Dunbar MD Familial anesthetic complications: None Was Beta Karen taken within 24 hours: Yes Was Clonidine taken within 24 hours: N/A Last intake: > 8hrs Social No alcohol and No tobacco Exam alert, oriented x 3, clear to auscultation bilaterally and regular rate & rhythm murmur Airway Mallampati: Class III Dentition: false Pulmonary None reported CV/HEM Atrial Fibrillation, Anemia and Hypertension experienced 4 second pause while in hospital, seen by cardiology Anesthetic Plan ASA status: 4 Anesthesia: MAC Risk of > 500 ml blood loss (7ml/kg in children): No Medications/Allergies Home Medications Medication Instructions Recorded Confirmed Last Taken Type prednisolone acetate 1 % eye 1 drp ophthalmic (eye) DAILY 10/28/20 03/11/22 03/10/22 History drops,suspension furosemide 20 mg tablet 20 mg PO DAILY PRN edema #30 tabs 06/08/21 03/11/22 07/12/21 Rx alprazolam 0.25 mg tablet 0.25 mg PO BID PRN anxiety #14 tabs 07/14/21 03/11/22 Unknown Rx atorvastatin 20 mg tablet 20 mg PO DAILY 90 days #90 tabs 09/14/21 03/11/22 03/10/22 Rx montelukast 10 mg tablet 10 mg PO DAILY #90 tabs 10/21/21 03/11/22 03/10/22 Rx (Singulair) warfarin 4 mg tablet 4 mg PO DAILY #90 tabs 11/30/21 03/11/22 03/10/22 Rx losartan 50 mg tablet 50 mg PO DAILY 90 days #90 tabs 01/03/22 03/11/22 03/10/22 Rx diltiazem HCl 60 mg tablet 60 mg PO TID PRN Blood Pressure 03/11/22 03/11/22 Unknown History metoprolol tartrate 50 mg tablet 50 mg PO BID PRN heart rate 03/11/22 03/11/22 Unknown History Allergies Allergy/AdvReac Type Severity Reaction Status Date / Time No Known Allergies Allergy Verified 03/11/22 10:25 Current Medications Generic Name Dose Route Start Last Admin Trade Name Bill PRN Reason Stop Dose Admin Ceftriaxone Sodium 1,000 mg/ 50 mls @ 100 mls/hr 03/11/22 15:00 03/12/22 16:31 Sodium Chloride IV Infused Q24H [facility] Infusion Protocol Sodium Chloride 1,000 mls @ 75 mls/hr 03/12/22 11:15 03/13/22 00:53 Sodium Chloride 0.9% IV 75 mls/hr .[id number] [facility] Administration Pantoprazole Sodium 40 mg 03/11/22 16:30 03/13/22 13:19 Pantoprazole 40 Mg Sdv IVP 40 mg Q12H [facility] Administration Additional Medication Information Generic Name Dose Route Start Last Admin Trade Name Pardeepq PRN Reason Stop Dose Admin Ceftriaxone Sodium 1,000 mg/ 50 mls @ 100 mls/hr 03/11/22 15:00 03/11/22 16:22 Sodium Chloride IV Infused Q24H [facility] Infusion Protocol Sodium Chloride 1,000 mls @ 75 mls/hr 03/12/22 11:15 03/12/22 12:32 Sodium Chloride 0.9% IV 75 mls/hr .[id number] [facility] Administration Pantoprazole Sodium 40 mg 03/11/22 16:30 03/12/22 02:10 Pantoprazole 40 Mg Sdv IVP 40 mg Q12H [facility] Administration [facility] Anesthesia Medical History Anxiety Bradycardia by electrocardiogram Chronic atrial fibrillation Hypercholesteremia Hypertension Social History Smoking and tobacco status: never smoked Alcohol intake: never Data Anesthesia : 03/13/22 04:57 03/13/22 04:57 Short CBC 03/11/22 03/11/22 03/12/22 Range/Units 15:04 21:05 01:04 WBC (4.0-10.0) 10^3/uL Hgb 9.5 L 9.7 L 7.3 L (11.5-15.3) g/dL Hct 32.0 L 31.2 L 24.3 L (37.0-47.0) % MCV (81-99) fl Plt Count (130-400) 10^3/cmm Neut % (Auto) % Neut # (Auto) (1.8-7.7) 10^3/uL 03/12/22 03/12/22 03/13/22 Range/Units 06:48 11:30 04:57 WBC 7.7 7.5 (4.0-10.0) 10^3/uL Hgb 8.8 L 9.1 L 8.0 L (11.5-15.3) g/dL Hct 28.7 L 30.4 L 25.6 L (37.0-47.0) % MCV 100.0 H 98.5 (81-99) fl Plt Count 172 181 (130-400) 10^3/cmm Neut % (Auto) 50.8 45.9 % Neut # (Auto) 3.92 3.43 (1.8-7.7) 10^3/uL BMP 03/12/22 03/13/22 06:48 04:57 Sodium 137 138 Potassium 3.7 3.7 Chloride 103 106 Carbon Dioxide 23 24 BUN 8 7 L Creatinine 0.6 0.8 Glucose 116 H 96 Calcium 8.0 L 8.1 L Cardiac Enzymes 03/12/22 03/12/22 Range/Units 01:10 06:48 Troponin T Gen 5 ng/L 35 H 39 H (0-10) ng/L Blood Bank 03/11/22 10:43 Blood Type A Positive Rho(D) Type Positive Antibody Screen Negative Coags 03/12/22 03/12/22 03/13/22 01:10 06:48 04:57 PT 19.30 H D 18.20 H 16.60 H INR 1.59 H 1.47 H 1.31 H Microbiology 03/11/22 13:47 Urine Culture - Final Urine,Voided Cardiac Studies: Echocardiogram 03/12/22 Holter Monitor 06/14/21
[2022-03-13] MEDS: sodium chloride 0.9% 1,000 ML 30 ML IV (14:43)
--- NOTE | 2022-03-13 14:58 | PC.NURSE ---
Severe excoriation noted to R groin fold and dark bruise-like discoloration and maceration noted to bilat. buttocks.
--- NOTE | 2022-03-13 15:49 | P.PN_ITS ---
Subjective Subjective: Hospital course, labs appreciated. Examination patient lying comfortably in bed. at bedside. Patient denies any nausea, vomiting, headache, melena, hematemesis. Awaiting EGD and colonoscopy today. Had 4.5-second pause on telemetry last night. Patient was sleeping. Asymptomatic. Vitals/I&O/Wt Last Vital Signs Temp 97.0 F L 03/13/22 15:27 Pulse 70 03/13/22 15:39 Resp 16 03/13/22 15:39 BP 137/56 03/13/22 15:39 Pulse Ox 100 03/13/22 15:39 O2 Del Method 03/13/22 15:39 FiO2 4 03/13/22 15:27 03/13/22 03/13/22 03/13/22 06:59 14:59 22:59 Intake Total 926.1965. Balance 6. Physical Exam Const: COMMON NORMALS: patient oriented x3 Resp: COMMON NORMALS: clear to auscultation bilaterally AUSCULTATION: clear to auscultation bilaterally Cardio: COMMON NORMALS: regular rate, regular rhythm, S1 normal heart sound present, S2 normal heart sound present, No gallops present (Cardio), No murmurs present (Cardio), No rub (Cardio) and Peripheral pulses 2+ throughout RATE: regular rate RHYTHM: regular rhythm HEART SOUNDS: S1 normal heart sound present and S2 normal heart sound present PERIPHERAL PULSES: Peripheral pulses 2+ throughout GI: COMMON NORMALS: Normal to inspection, nondistended, normoactive bowel sounds present, Soft to palpation, non-tender, No hepatosplenomegaly present and no masses AUSCULTATION: Yes normoactive bowel sounds PALPATION: Yes Soft to palpation and Yes No hepatosplenomegaly present RECTAL EXAM: deferred Extremity: COMMON NORMALS: no clubbing, cyanosis or edema and no pedal edema Neuro: COMMON NORMALS: patient oriented x3 Data : 03/13/22 04:57 03/13/22 04:57 Micro: Microbiology 03/11/22 13:47 Urine Culture - Final Urine,Voided A&P Assessment and plan (1) Lower GI bleed: (2) Gross hematuria: (3) Urinary tract infection: (4) Congestive heart failure: (5) Chronic atrial fibrillation: (6) Hypertension: (7) Supratherapeutic INR: Plan 81 year old female with PMH of Chronic A.Fib on warfarin at home, HTN, DLD was brought in with c/o active bright red per rectal as well as hematuria and patient was found to be having supratherapeutic INR. Assessment: LGIB Hematuria supratherapetic INR Acute Blood loss Anemia Chronic A.Fib on warfarin at home Significant pause on telemetry 4s HTN Plan : Post 1 with FFP, vitamin K. Appreciate INR today morning. Stable. Plan for EGD and colonoscopy today. Appreciate surgical recommendations. Monitor hemoglobin daily. Protonix 40 mg twice daily. Urine culture growing more than 100,000 gram-negative rods. Continue with IV ceftriaxone. Change as per culture sensitivities. Hold off on home dose of metoprolol as needed, Cardizem as needed. Monitor on telemetry. Most likely will discharge on oral metoprolol 25 mg twice daily if needed. INR not supratherapeutic anymore. As per patient recently dose of warfarin was increased to 4 mg daily at home. Discussed switching from warfarin to NOAC. Discussed about [address] pharmacy intubation. Patient verbalized understanding and is interested. Case management alerted. We will switch to NOACs on discharge. Full code. Protonix for PUD prophylaxis SCDs for DVT prophylaxis. NPO. Attestations Medical Necessity Statement*: Requires further hospitalization for management of anemia secondary to GI bleed in setting of supratherapeutic INR. Time Spent in Patient Care: Greater than 35 minutes Coding Level of Care Code Acute C D Area Supervisor for Carlyn Fwd Diagnoses Lower GI bleed K92.2 Gross hematuria R31.0 Urinary tract infection N39.0 Congestive heart failure I50.9 Chronic atrial fibrillation I48.20 Hypertension I10 Supratherapeutic INR R79.1
--- NOTE | 2022-03-13 15:56 | ANE.PACU2 ---
Inpatient post-anesthesia follow up: Airway intact: Yes Vital signs: Temperature 97.0 F Pulse Rate 70 Respiratory Rate 16 Blood Pressure 137/56 Pulse Oximetry 100 Oxygen Delivery Me thod Room Air Oxygen Flow Rate Fraction of Inspir ed Oxygen 4 Hydration adequate: Yes Nausea and vomiting: No Pain level: 1 Mental status: Baseline
--- NOTE | 2022-03-13 20:27 | PM.PN ---
Subjective Subjective: The patient has been doing okay with no chest pain or palpitations. Has not had any recurrence of pauses on the telemetry. No active GI bleeding. Remains afebrile. No chest pain or chest tightness. No unusual shortness of breath. Medications: Medication Review Details: Current Medications Acetaminophen (Acetaminophen 325 Mg Tablet) 650 mg PO Q6H PRN PRN Reason: Mild/Mod Pain Or Temp >/= 101 Bisacodyl (Bisacodyl 5 Mg Tablet) 10 mg PO DAILY PRN; Protocol PRN Reason: Constipation (see protocol) Ceftriaxone Sodium 1,000 mg/ (Sodium Chloride) 50 mls @ 100 mls/hr IV Q24H [facility]; Protocol Last Infusion: 03/12/22 16:31 Dose: Infused Sodium Chloride (Sodium Chloride 0.9%) 1,000 mls @ 75 mls/hr IV .[id number] [facility] Last Infusion: 03/13/22 16:25 Dose: 75 mls/hr Sodium Chloride (Sodium Chloride 0.9%) 1,000 mls @ 30 mls/hr IV .Q24H [facility] Last Infusion: 03/13/22 15:57 Dose: Infused Ondansetron HCl (Ondansetron 2 Mg/Ml Sdv 2 Ml) 4 mg IVP Q8H PRN PRN Reason: vomiting, or N/V if npo Pantoprazole Sodium (Pantoprazole 40 Mg Sdv) 40 mg IVP Q12H [facility] Last Admin: 03/13/22 13:19 Dose: 40 mg Vitals/I&O/Wt Last Vital Signs Temp 97.6 F 03/13/22 20:00 Pulse 68 03/13/22 20:00 Resp 15 03/13/22 20:00 BP 156/49 03/13/22 20:00 Pulse Ox 93 03/13/22 20:00 O2 Del Method 03/13/22 20:00 FiO2 4 03/13/22 15:27 03/13/22 03/13/22 03/13/22 06:59 14:59 22:59 Intake Total 926. 900 / 900 Balance 926. 900 / 900 Physical Exam Narrative: GENERAL: The patient is alert and oriented times three. Not in any acute distress. Obese HEENT: No significant pallor, icterus or lymphadenopathy.Oral cavity: There are no mucous membrane lesions. NECK: Trachea appears to be central. No masses noted. No JVD or thyromegaly appreciated. RESPIRATORY: Chest is symmetrical. No intercostals muscle retraction or any accessory muscle activation. There is no chest wall tenderness. Breath sounds are heard bilaterally. No rales or rhonchi heard. No evidence of any consolidation. BREASTS: Deferred. HEART: The first heart sound is variable. Second heart sound is normal. No S3.. No S3 or S4. Ejection systolic murmur grade 3 or 6 in the aortic area. No diastolic murmurs.. No pericardial rub ABDOMEN: No vessel pulsations or distention. No tenderness. No organomegaly appreciated. Bowel sounds are normally heard. : Deferred. RECTAL: Deferred. LYMPHATIC: No lymphadenopathy noted in the neck. EXTREMITIES: No edema or cyanosis. No clubbing. MUSCULOSKELETAL: No acute joint deformities or swelling SKIN: There are no significant rashes or ecchymosis NEUROPSYCHIATRIC: The patient is alert and oriented x3. Appears to be in a good mood. No tremors or rigidity noted. Data : 03/14/22 05:39 03/14/22 05:39 Micro: Microbiology 03/11/22 13:47 Urine Culture - Final Urine,Voided A&P Assessment and plan (1) Chronic episodic atrial fibrillation: May continue on the propafenone. (2) Lower GI bleed: Scheduled for colonoscopy today. (3) Hypertension: The blood pressure is of stage II. Need to optimize the antihypertensive medications. (4) Hypercholesteremia: May continue on the current medications. (5) Bradycardia by electrocardiogram: Patient has no recurrence of bradycardia arrhythmia on the monitor. May continue on the close monitoring. (6) Aortic valve stenosis: Patient has mild aortic valve stenosis. At this point, she will require intervention. Plan Based on the clinical progress, further recommendations will be made. Attestations Medical Necessity Statement*: Patient requires continued hospital stay for close monitoring and further management Coding Level of Care Code Acute Spray Painter Helper for Carlyn Villagomez Medical Decision Making Moderate Complexity Diagnoses Chronic episodic atrial fibrillation I48.20 Lower GI bleed K92.2 Hypertension I10 Hypercholesteremia E78.00 Bradycardia by electrocardiogram R00.1 Aortic valve stenosis I35.0
[2022-03-13] MEDS: propafenone 150 mg Tablet PO (21:28)
[2022-03-14] VITALS: BP 127/54; PULSE 67; RESP 12; TEMP 36.9; O2SAT 98
[2022-03-14] MEDS: pantoprazole 40 mg SDV IVP ×2 (00:08→12:43)
[2022-03-14 04:00] VITALS: BP 144/68; PULSE 70; RESP 12; TEMP 36.9; O2SAT 99
[2022-03-14] MEDS: sodium chloride 0.9% 1,000 ML 75 ML IV (04:29)
[2022-03-14 05:57] LABS: Basophils % 0.3 %; Eosinophils # 0.3 10^3/uL (0.0-0.8); Eosinophils % 3.6 %; Hematocrit 26.7 % (37.0-47.0); Lymphocytes # 1.4 10^3/uL (0.8-4.8); Lymphocytes % 20.6 %; Mean Corpuscular Hemoglobin 30.5 pg (28.0-34.0); Mean Corpuscular Volume 101.9 fl (81-99); Mean Platelet Volume 9.9 fL (7.4-10.4); Monocytes # 0.7 10^3/uL (0.2-0.9); Monocytes % 9.7 %; Neutrophils # 4.52 10^3/uL (1.8-7.7); Neutrophils % 65.2 %; Nucleated Red Blood Cells # 0.1 /100WBC; Nucleated Red Blood Cells % 0.7 %; Platelet Count 173 10^3/cmm (130-400); Red Blood Count 2.62 10^6/uL (4.1-5.3); Red Cell Distribution Width 15.1 % (12.1-15.1); White Blood Count 6.9 10^3/uL (4.0-10.0)
[2022-03-14 06:07] LABS: INR 1.21 (0.8-1.2)
[2022-03-14 06:12] LABS: Alanine Aminotransferase 11 U/L (0-33); Albumin Level 2.9 g/dL (3.5-5.2); Alkaline Phosphatase 79 U/L (35-105); Anion Gap 13.8 (5-19); Aspartate Amino Transferase 21 U/L (0-32); Blood Urea Nitrogen 6 mg/dL (8-23); Calcium 8.1 mg/dL (8.5-10.5); Carbon Dioxide 22 mmol/L (22-29); Chloride 107 mmol/L (98-107); Globulin 2.3 g/dL (1.3-4.6); Glucose 102 mg/dL (65-115); Osmolality Calculated 286 mOsm/kg (285-295); Potassium 3.8 mmol/L (3.5-5.1); Sodium 139 mmol/L (136-145); Total Bilirubin 0.3 mg/dL (0.15-1.2); Total Protein 5.2 g/dL (6.6-8.7)
[2022-03-14 06:21] LABS: Carcinoembryonic Antigen 2.6 ng/mL (0.0-4.7)
--- NOTE | 2022-03-14 07:27 | P.PN_ITS ---
Subjective Subjective: Patient had a colonoscopy yesterday. 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 Biopsy was taken and results are pending. Also had melanosis coli and diverticulosis. No active bleeding was noted. Medications: Medication Review Details: Current Medications Acetaminophen (Acetaminophen 325 Mg Tablet) 650 mg PO Q6H PRN PRN Reason: Mild/Mod Pain Or Temp >/= 101 Bisacodyl (Bisacodyl 5 Mg Tablet) 10 mg PO DAILY PRN; Protocol PRN Reason: Constipation (see protocol) Ceftriaxone Sodium 1,000 mg/ (Sodium Chloride) 50 mls @ 100 mls/hr IV Q24H [facility]; Protocol Last Infusion: 03/12/22 16:31 Dose: Infused Sodium Chloride (Sodium Chloride 0.9%) 1,000 mls @ 75 mls/hr IV .[id number] [facility] Last Admin: 03/14/22 04:29 Dose: 75 mls/hr Sodium Chloride (Sodium Chloride 0.9%) 1,000 mls @ 30 mls/hr IV .Q24H [facility] Last Infusion: 03/13/22 15:57 Dose: Infused Ondansetron HCl (Ondansetron 2 Mg/Ml Sdv 2 Ml) 4 mg IVP Q8H PRN PRN Reason: vomiting, or N/V if npo Pantoprazole Sodium (Pantoprazole 40 Mg Sdv) 40 mg IVP Q12H [facility] Last Admin: 03/14/22 00:08 Dose: 40 mg Propafenone HCl (Propafenone 150 Mg Tablet) 150 mg PO TID [facility] Last Admin: 03/13/22 21:28 Dose: 150 mg Vitals/I&O/Wt Last Vital Signs Temp 98.5 F 03/14/22 04:00 Pulse 70 03/14/22 04:00 Resp 12 03/14/22 04:00 BP 144/68 03/14/22 04:00 Pulse Ox 99 03/14/22 04:00 O2 Del Method 03/14/22 04:00 O2 Flow Rate 2 03/14/22 04:00 FiO2 4 03/13/22 15:27 03/13/22 03/14/22 03/14/22 22:59 06:59 14:59 Intake Total 1638.75 / 1638.75 526.25 / 2165.00 Balance 1638.75 / 1638.75 526.25 / 2165.00 Physical Exam Narrative: GENERAL: The patient is alert and oriented times three. Not in any acute distress. Obese HEENT: No significant pallor, icterus or lymphadenopathy.Oral cavity: There are no mucous membrane lesions. NECK: Trachea appears to be central. No masses noted. No JVD or thyromegaly appreciated. RESPIRATORY: Chest is symmetrical. No intercostals muscle retraction or any accessory muscle activation. There is no chest wall tenderness. Breath sounds are heard bilaterally. No rales or rhonchi heard. No evidence of any consolidation. BREASTS: Deferred. HEART: The first heart sound is variable. Second heart sound is normal. No S3.. No S3 or S4. Ejection systolic murmur grade 3 or 6 in the aortic area. No diastolic murmurs.. No pericardial rub ABDOMEN: No vessel pulsations or distention. No tenderness. No organomegaly appreciated. Bowel sounds are normally heard. : Deferred. RECTAL: Deferred. LYMPHATIC: No lymphadenopathy noted in the neck. EXTREMITIES: No edema or cyanosis. No clubbing. MUSCULOSKELETAL: No acute joint deformities or swelling SKIN: There are no significant rashes or ecchymosis NEUROPSYCHIATRIC: The patient is alert and oriented x3. Appears to be in a good mood. No tremors or rigidity noted. Data : 03/14/22 05:39 03/14/22 05:39 Other Labs: Laboratory Last Values WBC 6.9 10^3/uL (4.0-10.0) 03/14/22 05:39 RBC 2.62 10^6/uL (4.1-5.3) L 03/14/22 05:39 Hgb 8.0 g/dL (11.5-15.3) L 03/14/22 05:39 Hct 26.7 % (37.0-47.0) L 03/14/22 05:39 MCV 101.9 fl (81-99) H 03/14/22 05:39 MCH 30.5 pg (28.0-34.0) 03/14/22 05:39 MCHC 30.0 g/dL (30.0-36.0) 03/14/22 05:39 RDW 15.1 % (12.1-15.1) 03/14/22 05:39 Plt Count 173 10^3/cmm (130-400) 03/14/22 05:39 MPV 9.9 fL (7.4-10.4) 03/14/22 05:39 Neut % (Auto) 65.2 % 03/14/22 05:39 Lymph % (Auto) 20.6 % 03/14/22 05:39 Lyon % (Auto) 9.7 % 03/14/22 05:39 Eos % (Auto) 3.6 % 03/14/22 05:39 Baso % (Auto) 0.3 % 03/14/22 05:39 Neut # (Auto) 4.52 10^3/uL (1.8-7.7) 03/14/22 05:39 Lymph # (Auto) 1.4 10^3/uL (0.8-4.8) 03/14/22 05:39 Lyon # (Auto) 0.7 10^3/uL (0.2-0.9) 03/14/22 05:39 Eos # (Auto) 0.3 10^3/uL (0.0-0.8) 03/14/22 05:39 Baso # (Auto) 0.0 10^3/uL (0.0-0.1) 03/14/22 05:39 Nucleated RBC % (auto) 0.7 % 03/14/22 05:39 Nucleated RBCs # 0.1 /100WBC 03/14/22 05:39 PT 15.60 SECONDS (12.1-14.9) H 03/14/22 05:39 INR 1.21 (0.8-1.2) H 03/14/22 05:39 APTT 38.2 SECONDS (23.9-36.7) H 03/11/22 09:31 Sodium 139 mmol/L (136-145) 03/14/22 05:39 Potassium 3.8 mmol/L (3.5-5.1) 03/14/22 05:39 Chloride 107 mmol/L (98-107) 03/14/22 05:39 Carbon Dioxide 22 mmol/L (22-29) 03/14/22 05:39 Anion Gap 13.8 (5-19) 03/14/22 05:39 BUN 6 mg/dL (8-23) L 03/14/22 05:39 Creatinine 0.7 mg/dL (0.5-0.9) 03/14/22 05:39 GFR Calculation Not Reportable 03/14/22 05:39 Glucose 102 mg/dL (65-115) 03/14/22 05:39 Calculated Osmolality 286 mOsm/kg (285-295) 03/14/22 05:39 Calcium 8.1 mg/dL (8.5-10.5) L 03/14/22 05:39 Magnesium 1.7 mg/dL (1.7-2.3) 03/12/22 06:48 Total Bilirubin 0.3 mg/dL (0.15-1.2) 03/14/22 05:39 AST 21 U/L (0-32) 03/14/22 05:39 ALT 11 U/L (0-33) 03/14/22 05:39 Alkaline Phosphatase 79 U/L (35-105) 03/14/22 05:39 Troponin T Gen 5 ng/L 39 ng/L (0-10) H 03/12/22 06:48 Total Protein 5.2 g/dL (6.6-8.7) L 03/14/22 05:39 Albumin 2.9 g/dL (3.5-5.2) L 03/14/22 05:39 Globulin 2.3 g/dL (1.3-4.6) 03/14/22 05:39 Carcinoembryonic Ag 2.6 ng/mL (0.0-4.7) 03/14/22 05:39 TSH 3.56 uIU/mL (0.27-4.20) 03/11/22 09:31 Blood Type A Positive 03/11/22 10:43 Rho(D) Type Positive 03/11/22 10:43 Antibody Screen Negative 03/11/22 10:43 Crossmatch See Detail 03/11/22 10:43 Micro: Microbiology 03/11/22 13:47 Urine Culture - Final Urine,Voided A&P Assessment and plan (1) Chronic episodic atrial fibrillation: May continue on the propafenone. Telemetry shows sinus rhythm with PACs. No recurrence of atrial fibrillation. (2) Lower GI bleed: Colonoscopy findings are as mentioned above. Awaiting biopsy report. (3) Hypertension: The blood pressure seems to be getting under control. (4) Hypercholesteremia: May continue on the current medications. (5) Bradycardia by electrocardiogram: Patient has not had any significant bradycardia on the telemetry. No more pauses. (6) Aortic valve stenosis: Patient has mild aortic valve stenosis. At this point, she will require intervention. Plan Based on the clinical progress, further recommendations will be made. Need to decide as to when it will be appropriate to restart anticoagulation. Attestations Medical Necessity Statement*: Disposition as per the primary Coding Level of Care Code Acute Seed Yeast Operator for [facility] Fwd Medical Decision Making Moderate Complexity Diagnoses Chronic episodic atrial fibrillation I48.20 Lower GI bleed K92.2 Hypertension I10 Hypercholesteremia E78.00 Bradycardia by electrocardiogram R00.1 Aortic valve stenosis I35.0
[2022-03-14 08:00] VITALS: BP 146/61; PULSE 66; RESP 16; TEMP 36.9; O2SAT 98
[2022-03-14] MEDS: propafenone 150 mg Tablet PO ×2 (09:46→15:54)
[2022-03-14 12:00] VITALS: BP 150/73; PULSE 67; RESP 18; TEMP 36.9; O2SAT 98
--- NOTE | 2022-03-14 12:12 | P.DS_ITS ---
Discharge Providers Date of Admission: 03/11/22 10:49 Date of Discharge: March 14, 2022 Attending Provider at Admission: Laci Alcantara MD Attending Provider at Discharge: Chandler Monique MD Consults: Cardiology: Dr. Adkins Surgery: Dr. Dunbar Primary Care Provider: Princess Grande MD Diagnoses at Discharge Discharge Diagnosis (1) Chronic episodic atrial fibrillation: Status: Acute (2) Lower GI bleed: Status: Acute (3) Hypertension: Status: Acute (4) Hypercholesteremia: Status: Acute (5) Bradycardia by electrocardiogram: Status: Acute (6) Aortic valve stenosis: Status: Acute Reason for Visit Reason for Visit: BLOOD IN STOOL Brief History: History as per HPI: Yadira Krishnan is a 81 year old female with PMH of Chronic A.Fib on warfarin at home, HTN, DLD was brought in with c/o active bright red per rectal as well as hematuria, patient denied any chest pain, sob, nausea, vomiting abdominal pain.Patient was in ER yesterday with gross hematuria, patient is experincing supratherapetic INR since last week but it was trending down, last night her INR was 3.6, he was discharged home unfortunately had to come back. Upon arrival in the ER he h&h was : 9.2/30 ,? P/C : 224.?INR of 3.37. Pertinent Imaging studies : CT of the abdomen and pelvis??No acute intra-abdominal pathology. Patient received Vitamin K PO as well as 1 FFP. Hospital Course Hospital Course She was admitted to the hospital for further evaluation and management. She did not have any further episodes of melena or hematuria after treatment with vitamin K and FFP on admission. Hemoglobin remained stable. During hospitalization she was found to have frequent episodes of asymptomatic pauses on telemetry for which her home dose of rate limiting medications were withheld. Cardiology was consulted. Overall patient required 1 unit of transfusion of PRBC and FFP. Echocardiogram was done which showed a normal EF without diastolic dysfunction, mild aortic stenosis and moderate pulmonary hypertension with PASP of 67 mmHg. After clearance from cardiology patient underwent EGD and colonoscopy on 03/13. 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 Pathology Has Been Sent and Is Awaited. Patient Tolerated the Procedure Well. Patient's Hemoglobin Remained Stable. For Concerns for Labile INR Switching of Anticoagulation from Warfarin to NOACs Were Discussed in Detail with the Patient and She Verbalized Understanding and Wants to Switch to NOAC with a [facility] and a Provider. Patient Is Agreeable to Switch to Xarelto. She Has Been Discharged Hemodynamically Stable Condition Back Home with Advice to Follow-Up with Her Primary Care Provider within Next 2 Week for Repeat Hemoglobin and to follow-up with surgery within next 1 week for further evaluation and management as per pathology results. She is to restart anticoagulation with Xarelto in next 10 days. She is not to take metoprolol or Cardizem going forward but has been changed to propafenone as per cardiology recommendations. She is to follow-up with nurse practitioner at cardiology office within next 1 month. Physical Exam Const: COMMON NORMALS: patient oriented x3 Resp: COMMON NORMALS: clear to auscultation bilaterally AUSCULTATION: clear to auscultation bilaterally Cardio: COMMON NORMALS: regular rate, regular rhythm, S1 normal heart sound present, S2 normal heart sound present, No gallops present (Cardio), No murmurs present (Cardio), No rub (Cardio) and Peripheral pulses 2+ throughout RATE: regular rate RHYTHM: regular rhythm HEART SOUNDS: S1 normal heart sound present and S2 normal heart sound present PERIPHERAL PULSES: Peripheral pulses 2+ throughout GI: COMMON NORMALS: Normal to inspection, nondistended, normoactive bowel sounds present, Soft to palpation, non-tender, No hepatosplenomegaly present and no masses AUSCULTATION: Yes normoactive bowel sounds PALPATION: Yes Soft to palpation and Yes No hepatosplenomegaly present RECTAL EXAM: deferred Extremity: COMMON NORMALS: no clubbing, cyanosis or edema and no pedal edema Neuro: COMMON NORMALS: patient oriented x3 Discharge Data Studies Completed and Pending Completed Studies During Hospitalization Category Date Time Status CT abdomen pelvis w con* [id number] Stat Cat Scan 03/11/22 08:58 Completed CV. echo complete* [id number] Urgent Ultrasound 03/12/22 14:08 Completed Pending at discharge Category Date Time Status Pathology: Surgical [PTH] Routine Pth 03/13/22 15:29 Received Radiology Impressions Abdomen/Pelvis CT 03/11/22 08:58 IMPRESSION: 1. Cardiomegaly. 2. No acute intra-abdominal pathology. COMMENTS: Consistent with the [employer]'s Incidental Findings Committee white paper (J Am Jon Radiol 2018): Any incidental renal lesion less than 1 cm or classified as too small to characterize, or any incidental cystic renal lesion characterized as simple-appearing, is likely benign. No follow-up imaging is recommended for these lesions per consensus recommendations based on imaging criteria. Echocardiogram CONCLUSIONS ?Normal left ventricular size, systolic function and wall ?thickness, with no regional wall motion abnormalities.? LV ?ejection fraction around 66%.? No gross wall motion ?abnormalities. ?Normal right ventricular size and systolic function. ?Moderate biatrial enlargement. ?Thickened mitral valve. Mild mitral annular calcification. Mild- ?moderate mitral valve regurgitation. ?Mild aortic valve stenosis, mean gradient 8.5 mmHg, NATHAN 1.4 cm squared.? ?Peak velocity of 2.? 3 9 m/s with a peak gradient of 23 and a ?mean gradient of 9 mmHg. ?Mild tricuspid valve regurgitation. ?Moderate pulmonary hypertension.? Estimated pulmonary artery ?peak systolic pressure 67 mmHg ?Mild tricuspid valve regurgitation. ?There is no pericardial effusion. ?No similar previous studies are available for comparison ?Dr Tristan Adkins MD [facility] ?(Electronically Signed) ?Final Date:? ? ? 12 March 2022 ? 18:15 Laboratory Results WBC 6.9 10^3/uL (4.0-10.0) 03/14/22 05:39 RBC 2.62 10^6/uL (4.1-5.3) L 03/14/22 05:39 Hgb 8.0 g/dL (11.5-15.3) L 03/14/22 05:39 Hct 26.7 % (37.0-47.0) L 03/14/22 05:39 MCV 101.9 fl (81-99) H 03/14/22 05:39 MCH 30.5 pg (28.0-34.0) 03/14/22 05:39 MCHC 30.0 g/dL (30.0-36.0) 03/14/22 05:39 RDW 15.1 % (12.1-15.1) 03/14/22 05:39 Plt Count 173 10^3/cmm (130-400) 03/14/22 05:39 MPV 9.9 fL (7.4-10.4) 03/14/22 05:39 Neut % (Auto) 65.2 % 03/14/22 05:39 Lymph % (Auto) 20.6 % 03/14/22 05:39 [place] % (Auto) 9.7 % 03/14/22 05:39 Eos % (Auto) 3.6 % 03/14/22 05:39 Baso % (Auto) 0.3 % 03/14/22 05:39 Neut # (Auto) 4.52 10^3/uL (1.8-7.7) 03/14/22 05:39 Lymph # (Auto) 1.4 10^3/uL (0.8-4.8) 03/14/22 05:39 [place] # (Auto) 0.7 10^3/uL (0.2-0.9) 03/14/22 05:39 Eos # (Auto) 0.3 10^3/uL (0.0-0.8) 03/14/22 05:39 Baso # (Auto) 0.0 10^3/uL (0.0-0.1) 03/14/22 05:39 Nucleated RBC % (auto) 0.7 % 03/14/22 05:39 Nucleated RBCs # 0.1 /100WBC 03/14/22 05:39 PT 15.60 SECONDS (12.1-14.9) H 03/14/22 05:39 INR 1.21 (0.8-1.2) H 03/14/22 05:39 APTT 38.2 SECONDS (23.9-36.7) H 03/11/22 09:31 Sodium 139 mmol/L (136-145) 03/14/22 05:39 Potassium 3.8 mmol/L (3.5-5.1) 03/14/22 05:39 Chloride 107 mmol/L (98-107) 03/14/22 05:39 Carbon Dioxide 22 mmol/L (22-29) 03/14/22 05:39 Anion Gap 13.8 (5-19) 03/14/22 05:39 BUN 6 mg/dL (8-23) L 03/14/22 05:39 Creatinine 0.7 mg/dL (0.5-0.9) 03/14/22 05:39 GFR Calculation Not Reportable 03/14/22 05:39 Glucose 102 mg/dL (65-115) 03/14/22 05:39 Calculated Osmolality 286 mOsm/kg (285-295) 03/14/22 05:39 Calcium 8.1 mg/dL (8.5-10.5) L 03/14/22 05:39 Magnesium 1.7 mg/dL (1.7-2.3) 03/12/22 06:48 Total Bilirubin 0.3 mg/dL (0.15-1.2) 03/14/22 05:39 AST 21 U/L (0-32) 03/14/22 05:39 ALT 11 U/L (0-33) 03/14/22 05:39 Alkaline Phosphatase 79 U/L (35-105) 03/14/22 05:39 Troponin T Gen 5 ng/L 39 ng/L (0-10) H 03/12/22 06:48 Total Protein 5.2 g/dL (6.6-8.7) L 03/14/22 05:39 Albumin 2.9 g/dL (3.5-5.2) L 03/14/22 05:39 Globulin 2.3 g/dL (1.3-4.6) 03/14/22 05:39 Carcinoembryonic Ag 2.6 ng/mL (0.0-4.7) 03/14/22 05:39 TSH 3.56 uIU/mL (0.27-4.20) 03/11/22 09:31 Blood Type A Positive 03/11/22 10:43 Rho(D) Type Positive 03/11/22 10:43 Antibody Screen Negative 03/11/22 10:43 Crossmatch See Detail 03/11/22 10:43 Vitals Last Vital Signs Temp 98.5 F 03/14/22 08:00 Pulse 66 03/14/22 08:00 Resp 16 03/14/22 08:00 BP 146/61 03/14/22 08:00 Pulse Ox 98 03/14/22 08:00 O2 Del Method 03/14/22 04:00 O2 Flow Rate 2 03/14/22 08:00 FiO2 4 03/13/22 15:27 Discharge Plan Discharge Patient Disposition: Home Condition: Stable Prescriptions: New propafenone 150 mg Tablet 150 mg PO TID 30 Days Qty: 90 0RF Xarelto 20 mg tablet 20 mg PO DAILY Qty: 30 0RF Rx Instructions: must administer with a meal/food levofloxacin 500 mg tablet 500 mg PO Q24H 3 Days Qty: 3 0RF Continued furosemide 20 mg tablet 20 mg PO DAILY PRN (Reason: edema) Qty: 30 5RF atorvastatin 20 mg tablet 20 mg PO DAILY 90 Days Qty: 90 1RF montelukast [Singulair] 10 mg tablet 10 mg PO DAILY Qty: 90 3RF losartan 50 mg tablet 50 mg PO DAILY 90 Days Qty: 90 1RF alprazolam 0.25 mg tablet 0.25 mg PO BID PRN (Reason: anxiety) Qty: 30 1RF prednisolone acetate 1 % drops,suspension 1 drp ophthalmic (eye) DAILY Rx Instructions: USE IN RIGHT EYE DAILY Discontinued warfarin 4 mg tablet 4 mg PO DAILY Qty: 90 2RF Rx Instructions: intended change from 3mg tablet metoprolol tartrate 50 mg tablet 50 mg PO BID PRN (Reason: heart rate) diltiazem HCl 60 mg tablet 60 mg PO TID PRN (Reason: Blood Pressure) Discharge Orders: Discharge Order (Routine); Ordered 03/14/22 Ordered By: Chandler Monique Referrals: Princess Grande MD [Primary Care Provider] - 2 weeks (Will need CBC at this appointment. ) Chace Dunbar MD [Physician] - 7-10 days Tristan Adkins MD [Physician] - 1 month Shaye Mantilla FNP [Nurse Practitioner] - 7-10 days Discharge Diet: Cardiac Discharge Activity: Resume usual activity and Increase activity as tolerated Patient Instructions: Propafenone (By mouth), Levofloxacin (By mouth), Rivaroxaban (By mouth), GI Discharge Instructions, Opioid Safety Activity Restrictions/Additional Instructions: Please follow-up with Dr. Dunbar from surgery within next 1 week for further evaluation and management as per pathology results. Please start taking Xarelto after 10 days. Please follow-up with your family care provider within next 2 weeks for repeat CBC which would be 1 week after restarting Xarelto. Discharge Attestations Time Spent in Discharge Care*: greater than 30 min Specific Discharge Activities: educating patient, educating and/or supporting family/caregiver, discussing with case finisher/social workers/dc planners, documenting/other paperwork and evaluating patient/reviewing data Status at Discharge: Cognitive status at discharge: cognitively intact , Behavioral status at discharge: cooperative , Functional status at discharge: independent ambulation , Overall status at discharge: patient is back to baseline Quality Metrics Clinical Quality Measures [ No reported AMI, CVA or VTE this stay] Coding Level of Care Code Acute g FW DC note Diagnoses Chronic episodic atrial fibrillation I48.20 Lower GI bleed K92.2 Hypertension I10 Hypercholesteremia E78.00 Bradycardia by electrocardiogram R00.1 Aortic valve stenosis I35.0
[2022-03-14 15:38] VITALS: O2SAT 92; O2SAT 94
[2022-03-14 16:18] VITALS: BP 150/73; PULSE 67; RESP 18; TEMP 36.9; O2SAT 98
== END 2022-03-14 16:10 | disposition home or self-care (01) | DRG 378 ==
LOC: ER 09:49 → MEDSURG 11:26
PROVIDERS: Internal Medicine; Surgery; Admitting Provider Internal Medicine; Emergency Provider Family Medicine; PCP Family Medicine; Visit Provider Student in an Organized Health Care Education/Training Program
PROC: 0DJ08ZZ Inspection of Upper Intestinal Tract, Via Natural or Artificial Opening Endoscopic (ICD-10-PCS; CPT 43235; principal; 2022-03-13 15:40)
PROC: 0DJD8ZZ Inspection of Lower Intestinal Tract, Via Natural or Artificial Opening Endoscopic (ICD-10-PCS; CPT 45378; 2022-03-13 15:40)
DX: K57.31 Diverticulosis of large intestine without perforation or abscess with bleeding (principal); C18.0 Malignant neoplasm of cecum; D62 Acute posthemorrhagic anemia; D68.318 Other hemorrhagic disorder due to intrinsic circulating anticoagulants, antibodies, or inhibitors; I48.20 Chronic atrial fibrillation, unspecified; N39.0 Urinary tract infection, site not specified; Z68.43 Body mass index [BMI] 50.0-59.9, adult; K20.90 Esophagitis, unspecified without bleeding; Z79.01 Long term (current) use of anticoagulants; F41.9 Anxiety disorder, unspecified; I10 Essential (primary) hypertension; E78.00 Pure hypercholesterolemia, unspecified; R31.0 Gross hematuria; E66.01 Morbid (severe) obesity due to excess calories; E78.5 Hyperlipidemia, unspecified; R00.1 Bradycardia, unspecified; I27.20 Pulmonary hypertension, unspecified; I35.0 Nonrheumatic aortic (valve) stenosis; K44.9 Diaphragmatic hernia without obstruction or gangrene; K21.9 Gastro-esophageal reflux disease without esophagitis
CPT/HCPCS: 36415; 36430; 43235; 45381; 45385; 74177; 80048; 80053; 81001; 82378; 83690; 83735; 84443; 84484; 85014; 85018; 85025; 85610; 85730; 86850; 86900; 86920; 86927; 87077; 87086; 87186; 88305; 93005; 93306; 94760; 94762; 96360; 96365; 99284; 99285; C9113; G0378; J0696; J2704; J3430; J3475; J3480; J3490; J7030; J7120; P9016; P9017; Q9967

== ENCOUNTER → 2022-03-16 15:28 | Outpatient (BNVA) | payer MEDICARE, OTHER, SELFPAY | PROVIDERS: PCP Family Medicine; Visit Provider Surgery | DX: R00.1 Bradycardia, unspecified (principal); I50.9 Heart failure, unspecified; I48.20 Chronic atrial fibrillation, unspecified; R06.02 Shortness of breath; C18.9 Malignant neoplasm of colon, unspecified; R07.9 Chest pain, unspecified | CPT/HCPCS: 99212 ==

== ENCOUNTER → 2022-03-20 14:40 | Outpatient (BNVA) | payer MEDICARE, OTHER, SELFPAY | PROVIDERS: PCP Family Medicine; Visit Provider Surgery | DX: C18.9 Malignant neoplasm of colon, unspecified (principal) | CPT/HCPCS: 99213 ==

== ENCOUNTER → 2022-03-27 13:10 | Outpatient (BNVA) | payer MEDICARE, OTHER, SELFPAY | PROVIDERS: PCP Family Medicine; Visit Provider Nurse Practitioner Family | DX: I48.20 Chronic atrial fibrillation, unspecified (principal); C18.9 Malignant neoplasm of colon, unspecified; K92.2 Gastrointestinal hemorrhage, unspecified | CPT/HCPCS: 80053; 85025; 93005; 99213 ==

== ENCOUNTER 2022-04-12 09:29 | Outpatient (CLI) | payer MEDICARE, OTHER, SELFPAY ==
--- NOTE | 2022-04-12 09:40 | ECG_ITS ---
[facility] Test Date: 2022-04-12 Pat Name: Yadira Krishnan Department: Room: Gender: Female Clinical Operations Consultant: : 1940 Requested By: Tristan Adkins Order Number: [id number] Heath MD: Tristan Adkins M.D. Interpretive Statements NAME OF STUDY: LEXISCAN SESTAMIBI STRESS TEST INDICATION: CP/SOB/CHF, PROCEDURE: At the baseline, the EKG revealed normal sinus rhythm with some features of early repolarization. The baseline heart was 84 bpm with a blood pressue of 150/66 mm of Hg Lexiscan was infused over a period of 20 seconds. A total of 0.4 milligrams of Lexiscan was infused. The stress phase was continued for a total of 5 minutes. Heart rate at the end of the stress phase was 87 bpm with a blood pressure 116/57 mm of Hg. The EKG at the peak infusion revealed no significant changes. Sestamibi was injected 20 seconds after the Lexiscan infusion. Heart rate at the end of the recovery phase was 86 bpm with a blood pressure of 129/60 mm of Hg. CONCLUSION: 1. No significant EKG changes with the LexiScan infusion 2. No LexiScan induced chest pain or cardiac arrhythmia 3. Normal blood pressure and heart rate response 4. Sestamibi/sestamibi perfusion scan pending; see separate report. Electronically Signed On 04-14-2022 16:19:06 EDGE KITTER by Tristan Adkins M.D. [id number]
--- NOTE | 2022-04-12 09:40 | NMCV_ITS ---
NM lashon perf SPECT r/s* [id number] Yadira Krishnan Age: 81 Gender: F : 1940 Exam Date: 04/12/2022 09:40 Ordering Phys: Tristan Adkins MD ([email or web address]) Technologist: PETER Gamble Exam Location: [facility] Indications: BRADYCARDIA STRESS TEST Please see separate stress test report in [facility] for full findings IMAGE PROTOCOL Rest/Stress 1 Lexiscan Day Radiopharmaceutical Dose (mCi) Administration Site Administered by Rest: Tc-99m 10.7 IV PETER Marrufo Sestamibi Stress:Tc-99m 32.9 IV PETER Marrufo Sestamibi Rest: 12-Apr-2022 60 Discovery 630 Stress: 12-Apr-2022 30 Discovery 630 0.4mg Lexiscan. Supine position only as patient was unable to lay prone. SPECT RESULTS Technical Quality: Good Raw Data Analysis: Breast attenuation Image Corrections: No attenuation or motion correction applied Summed Stress Score: 5 Summed Rest Score: 0 Summed Difference Score: 5 PERFUSION FINDINGS Small to moderate area of moderately decreased tracer uptake in the mid anterolateral, mid inferolateral and apical lateral segments. Significant reversibility was noted in these regions FUNCTIONAL RESULTS (calculated via Gated SPECT) Stress Image LV EF (%): 84 Stress EDV (mL):87 TID: 1.04 Stress ESV (mL):14 FUNCTIONAL FINDINGS: Segmental wall motion analysis revealing no gross wall motion abnormalities. IMPRESSIONS 1. Myocardial perfusion imaging revealing small to moderate area of reversible defect in the mid anterolateral, inferolateral and apical lateral regions, suggesting ischemia in the distribution of the left circumflex artery. 2. Normal LV ejection fraction of 84%. 3. LV wall motion analysis revealing no gross wall motion normalities. 4. Normal LV volume No similar previous studies are available for comparison Dr Tristan Adkins MD [facility] (Electronically Signed) Final Date: 12 April 2022 17:44 S
[2022-04-12 09:51] VITALS: BMI 50.8
[2022-04-12] MEDS: regadenoson 0.4 Mg/5 ml Syringe IVP (11:53)
[2022-04-12 12:16] VITALS: BP 129/60; PULSE 85
== END 2022-04-12 09:30 | disposition home or self-care (01) ==
LOC: CDL 09:32
PROVIDERS: PCP Family Medicine; Visit Provider Internal Medicine Cardiovascular Disease
DX: R07.9 Chest pain, unspecified (principal); R06.02 Shortness of breath; I50.9 Heart failure, unspecified
CPT/HCPCS: 36415; 78452; 93017; 96374; A9500; J2785

== ENCOUNTER → 2022-05-08 14:59 | Outpatient (BNVA) | payer MEDICARE, OTHER, SELFPAY | PROVIDERS: PCP Family Medicine; Visit Provider Family Medicine | DX: D50.9 Iron deficiency anemia, unspecified (principal); I50.9 Heart failure, unspecified; C18.9 Malignant neoplasm of colon, unspecified; K92.2 Gastrointestinal hemorrhage, unspecified | CPT/HCPCS: 80048; 85025 ==

== ENCOUNTER → 2022-05-11 12:27 | Outpatient (BNVA) | payer MEDICARE, OTHER, SELFPAY | PROVIDERS: PCP Family Medicine; Visit Provider Internal Medicine Cardiovascular Disease | DX: R06.02 Shortness of breath (principal); R94.39 Abnormal result of other cardiovascular function study; I50.9 Heart failure, unspecified; I48.20 Chronic atrial fibrillation, unspecified; R00.1 Bradycardia, unspecified; K92.2 Gastrointestinal hemorrhage, unspecified | CPT/HCPCS: 80048; 83880; 99215 ==

== ENCOUNTER 2022-05-28 10:49 | Emergency (ER) | payer MEDICARE, OTHER, SELFPAY ==
[2022-05-28 10:59] VITALS: BP 134/77; PULSE 118; RESP 18; TEMP 36.7; O2SAT 95
--- NOTE | 2022-05-28 11:02 | W.ED.ARRPALP ---
HPI - Arrhythmia/Palpitations General: Chief Complaint: Arrhythmia/Palpitations Stated Complaint: high heart rate Time Seen by Provider: 05/28/22 11:02 History of Present Illness: Ms. Krishnan is an 81-year-old lady with significant past medical history of CHF, chronic atrial fibrillation on propafenone and rivaroxaban presenting to the emergency department due to abnormal heart heart rate. She intermittently noted high heart rate over the past few days however today this became more constant at rest. She denies other associated symptoms. Denies frequent similar episodes in the past. Onset of symptoms appears to be acute. Course has persisted. Patient has been compliant with her medication regimen. No other specific changes in health, exacerbating, or alleviating factors identified. Onset (ago): day(s) Duration: constant Severity: moderate Arrhythmia history: atrial fibrillation Associated symptoms: Reports no associated symptoms Review of Systems General: Reports: 10 or more systems reviewed and unremarkable except in HPI and below PFSH ED PFSH: Medical History Anxiety Aortic valve stenosis Bradycardia by electrocardiogram Chronic atrial fibrillation Hypercholesteremia Hypertension Osteoarthritis Social History Smoking and tobacco status: never smoked Alcohol intake: never Physical Exam Const: COMMON NORMALS: alert GENERAL APPEARANCE: cooperative and well developed HENMT: COMMON NORMALS: normocephalic and atraumatic HEAD & SCALP: normocephalic and atraumatic Eye: COMMON NORMALS: conjunctivae normal CONJUNCTIVA: Yes conjunctivae normal SCLERA: sclerae normal Neck/C-Spine: COMMON NORMALS: supple GENERAL: Yes trachea midline Resp: COMMON NORMALS: clear to auscultation bilaterally EFFORT & INSPECTION: Yes able to speak in complete sentences AUSCULTATION: clear to auscultation bilaterally Cardio: COMMON NORMALS: regular rate RATE: regular rate RHYTHM: abnormal rhythm irregularly irregular GI: COMMON NORMALS: Soft to palpation PALPATION: Yes Soft to palpation and No Tenderness to palpation present (GI) Extremity: GENERAL: Yes normal exam except as noted and Yes edema Neuro: COMMON NORMALS: moves all extremities SENSORIUM/ORIENTATION: Yes alert and No Orientation impaired Psych: COMMON NORMALS: mental status grossly normal and Normal thought process present THOUGHT PROCESS: Normal thought process present Course Vital Signs: Vital signs: Vital Signs Temperature 98.1 F 05/28/22 10:59 Pulse Rate 66 05/28/22 14:29 Respiratory Rate 16 05/28/22 14:29 Blood Pressure 157/78 05/28/22 14:29 Pulse Oximetry 96 05/28/22 14:29 Oxygen Delivery Me thod 05/28/22 10:59 MDM - Arrhythmia/Palpitations Medical Decision Making 81-year-old lady with history of atrial fibrillation presented due to abnormal heart rate without other specific provoking factors or symptoms. She has been compliant with her anticoagulation. She is nontoxic on exam and rate is generally controlled though mildly variable. EKG demonstrates atrial fibrillation with nonspecific ST segment abnormalities, intervals otherwise normal, no STEMI. Labs with no leukocytosis, similar hemoglobin to prior, no significant metabolic abnormalities to explain arrhythmia. Magnesium is less than 2 potassium less than 4. For arrhythmia prevention/treatment I will optimize these with replenishment. Negative range 2-hour delta troponin. Chest x-ray with no lobar consolidation or pneumothorax, cardiomegaly appears similar. Cardiac stress test from 08/11/2021 reviewed. Patient treated with methadone after discussion with cardiology and also metoprolol patient is reasonable for outpatient follow-up as sustained rate control was achieved. Plan to add as needed metoprolol and message case management for follow-up. The results of ED evaluation were discussed with the patient including prescriptions and/or symptomatic cares (if applicable) including appropriate and responsible use, followup plan, and return precautions. The patient verbalized understanding and felt safe for discharge. Medical Records I reviewed the patient's medical records. Lab Data I reviewed the patient's lab results. 05/28/22 11:13 05/28/22 11:13 Radiology Impressions Chest X-Ray 05/28/22 11:08 IMPRESSION: 1. Heart is enlarged but stable when compared to the prior exam. 2. Trace atelectasis or scar noted in the left mid lung. Laboratory Results WBC 6.3 10^3/uL (4.0-10.0) 05/28/22 11:13 RBC 3.63 10^6/uL (4.1-5.3) L 05/28/22 11:13 Hgb 10.8 g/dL (11.5-15.3) L 05/28/22 11:13 Hct 36.2 % (37.0-47.0) L 05/28/22 11:13 MCV 99.7 fl (81-99) H 05/28/22 11:13 MCH 29.8 pg (28.0-34.0) 05/28/22 11:13 MCHC 29.8 g/dL (30.0-36.0) L 05/28/22 11:13 RDW 15.8 % (12.1-15.1) H 05/28/22 11:13 Plt Count 263 10^3/cmm (130-400) 05/28/22 11:13 MPV 9.4 fL (7.4-10.4) 05/28/22 11:13 Neut % (Auto) 54.1 % 05/28/22 11:13 Lymph % (Auto) 32.1 % 05/28/22 11:13 [place] % (Auto) 9.0 % 05/28/22 11:13 Eos % (Auto) 4.1 % 05/28/22 11:13 Baso % (Auto) 0.5 % 05/28/22 11:13 Neut # (Auto) 3.43 10^3/uL (1.8-7.7) 05/28/22 11:13 Lymph # (Auto) 2.0 10^3/uL (0.8-4.8) 05/28/22 11:13 [place] # (Auto) 0.6 10^3/uL (0.2-0.9) 05/28/22 11:13 Eos # (Auto) 0.3 10^3/uL (0.0-0.8) 05/28/22 11:13 Baso # (Auto) 0.0 10^3/uL (0.0-0.1) 05/28/22 11:13 Nucleated RBC % (auto) 0 % 05/28/22 11:13 Nucleated RBCs # 0.0 /100WBC 05/28/22 11:13 Sodium 140 mmol/L (136-145) 05/28/22 11:13 Potassium 3.8 mmol/L (3.5-5.1) 05/28/22 11:13 Chloride 101 mmol/L (98-107) 05/28/22 11:13 Carbon Dioxide 28 mmol/L (22-29) 05/28/22 11:13 Anion Gap 14.8 (5-19) 05/28/22 11:13 BUN 17 mg/dL (8-23) 05/28/22 11:13 Creatinine 0.7 mg/dL (0.5-0.9) 05/28/22 11:13 GFR Calculation Not Reportable 05/28/22 11:13 Glucose 103 mg/dL (65-115) 05/28/22 11:13 Calculated Osmolality 292 mOsm/kg (285-295) 05/28/22 11:13 Calcium 9.2 mg/dL (8.5-10.5) 05/28/22 11:13 Magnesium 1.7 mg/dL (1.7-2.3) 05/28/22 11:13 Total Bilirubin 0.2 mg/dL (0.15-1.2) 05/28/22 11:13 AST 19 U/L (0-32) 05/28/22 11:13 ALT 11 U/L (0-33) 05/28/22 11:13 Alkaline Phosphatase 88 U/L (35-105) 05/28/22 11:13 Troponin T Baseline 29 ng/L (0-10) H 05/28/22 11:13 Troponin T 120 Minute 25.88 ng/L (0-10) H 05/28/22 13:22 Delta Troponin T -3.12 ABS# (0-10) L 05/28/22 13:22 NT-Pro-B Natriuret Pep 415 pg/mL (0-450) 05/28/22 11:13 Total Protein 6.6 g/dL (6.6-8.7) 05/28/22 11:13 Albumin 4.0 g/dL (3.5-5.2) 05/28/22 11:13 Globulin 2.6 g/dL (1.3-4.6) 05/28/22 11:13 TSH 2.41 uIU/mL (0.27-4.20) 05/28/22 11:13 Discharge Plan Discharge Patient Disposition: Home Clinical Impression: Atrial fibrillation with rapid ventricular response Condition: Stable Prescriptions: New metoprolol tartrate 25 mg tablet 12.5 mg PO TID PRN (Reason: tachycardia) Qty: 30 1RF No Action isosorbide mononitrate 30 mg tablet extended release 24 hr 30 mg PO DAILY Qty: 30 5RF ferrous sulfate 325 mg (65 mg iron) tablet 325 mg PO BID Qty: 100 5RF atorvastatin 20 mg tablet 20 mg PO DAILY 90 Days Qty: 90 1RF montelukast [Singulair] 10 mg tablet 10 mg PO DAILY Qty: 90 3RF losartan 50 mg tablet 50 mg PO DAILY 90 Days Qty: 90 1RF alprazolam 0.25 mg tablet 0.25 mg PO BID PRN (Reason: anxiety) Qty: 30 1RF Xarelto 20 mg tablet 20 mg PO DAILY Qty: 90 3RF Rx Instructions: must administer with a meal/food furosemide 20 mg tablet See Rx Instructions .ROUTE .COMPLEX Qty: 180 1RF Dose Instruction: TAKE 1 TABLET BY MOUTH TWICE DAILY NEEDED FOR SWELLING Rx Instructions: TAKE 1 TABLET BY MOUTH TWICE DAILY NEEDED FOR SWELLING tramadol 50 mg tablet 50 mg PO BID PRN (Reason: pain) Qty: 30 1RF propafenone 150 mg tablet See Rx Instructions .ROUTE .COMPLEX Qty: 270 1RF Dose Instruction: TAKE 1 TABLET BY MOUTH THREE TIMES DAILY Rx Instructions: TAKE 1 TABLET BY MOUTH THREE TIMES DAILY prednisolone acetate 1 % drops,suspension 1 drp ophthalmic (eye) DAILY Rx Instructions: USE IN RIGHT EYE DAILY Discharge Orders: Discharge ED (Routine); Ordered 05/28/22 Ordered By: Vimal Castañeda Referrals: Princess Grande MD [Primary Care Provider] - Discharge Diet: Usual diet Discharge Activity: Resume usual activity Patient Instructions: A-fib (Atrial Fibrillation) (ED) Activity Restrictions/Additional Instructions: Thank you for visiting the emergency department. You were seen and evaluated for elevated heart rate. Given the absence of the other associated symptoms and improvement in the emergency department I believe that outpatient follow-up is reasonable. As discussed I will add a as needed medication for elevated heart rate despite continue your other medications. I will also message case management for follow-up with cardiology. Return to the emergency department for any new symptoms, chest pain, shortness of breath, fainting, elevated heart rate despite medication, or anything else that you are concerned about a feel needs emergency department evaluation. Coding Level of Care Code ED Administrative Associate for Carlyn Fwrachid Exam Comprehensive
--- NOTE | 2022-05-28 11:08 | XRR_ITS ---
PROCEDURE INFORMATION: Exam: XR Chest Exam date and time: 05/28/2022 11:15 AM Age: 81 years old Clinical indication: Other: Tachycardia TECHNIQUE: Imaging protocol: Radiologic exam of the chest. Views: 1 view. Total images: 1 COMPARISON: CR XR chest 1V portable [id number] 10/29/2021 1:13 AM FINDINGS: Lungs: Benign granulomatous disease of the lung is noted. Trace atelectasis or scar noted in the left mid lung. Pleural spaces: Unremarkable. No pleural effusion. No pneumothorax. Heart/Mediastinum: Heart is enlarged but stable when compared to the prior exam. Bones/joints: Osseous structures are unchanged from the prior exam. XR/XR chest 1V portable [id number] IMPRESSION: 1. Heart is enlarged but stable when compared to the prior exam. 2. Trace atelectasis or scar noted in the left mid lung.
--- NOTE | 2022-05-28 11:13 | ECG_ITS ---
[facility] Test Date: 2022-05-28 Pat Name: Yadira Krishnan Department: Room: Gender: Female Trim Technician: : 1940 Requested By: Vimal Castañeda Order Number: [id number] Heath MD: Marc Greer M.D. Measurements Intervals [place] Rate: 116 P: -79 ID: [id number] QRS: 14 QRSD: 87 T: 97 QT: 285 QTc: 397 Interpretive Statements ATRIAL FIBRILLATION WITH RVR Compared to ECG 03/12/2022 01:18:35 T-wave abnormality still present Electronically Signed On 05-28-2022 21:42:16 BUS DRIVER SUPERVISOR by Marc Greer M.D. [email or web address] [email or web address] [email or web address]/store/Ov/[id number]
[2022-05-28] MEDS: metoprolol tartrate 1 mg/1 mL SDV 5 mL 2.5 MG IVP ×2 (11:21→12:24)
[2022-05-28 11:36] LABS: Basophils % 0.5 %; Eosinophils # 0.3 10^3/uL (0.0-0.8); Eosinophils % 4.1 %; Hematocrit 36.2 % (37.0-47.0); Hemoglobin 10.8 g/dL (11.5-15.3); Lymphocytes % 32.1 %; Mean Corpuscular HGB Conc 29.8 g/dL (30.0-36.0); Mean Corpuscular Hemoglobin 29.8 pg (28.0-34.0); Mean Corpuscular Volume 99.7 fl (81-99); Mean Platelet Volume 9.4 fL (7.4-10.4); Monocytes # 0.6 10^3/uL (0.2-0.9); Neutrophils # 3.43 10^3/uL (1.8-7.7); Neutrophils % 54.1 %; Nucleated Red Blood Cells % 0 %; Platelet Count 263 10^3/cmm (130-400); Red Blood Count 3.63 10^6/uL (4.1-5.3); Red Cell Distribution Width 15.8 % (12.1-15.1); White Blood Count 6.3 10^3/uL (4.0-10.0)
[2022-05-28 11:44] VITALS: BP 142/65; PULSE 94; RESP 16; O2SAT 98
[2022-05-28 11:47] LABS: Troponin(5th) Baseline 29 ng/L (0-10)
[2022-05-28 11:57] LABS: Alanine Aminotransferase 11 U/L (0-33); Alkaline Phosphatase 88 U/L (35-105); Anion Gap 14.8 (5-19); Aspartate Amino Transferase 19 U/L (0-32); Blood Urea Nitrogen 17 mg/dL (8-23); Calcium 9.2 mg/dL (8.5-10.5); Carbon Dioxide 28 mmol/L (22-29); Chloride 101 mmol/L (98-107); Globulin 2.6 g/dL (1.3-4.6); Glucose 103 mg/dL (65-115); Magnesium 1.7 mg/dL (1.7-2.3); NT Pro B Type Natriuretic Pept 415 pg/mL (0-450); Osmolality Calculated 292 mOsm/kg (285-295); Potassium 3.8 mmol/L (3.5-5.1); Sodium 140 mmol/L (136-145); Thyroid Stimulating Hormone 2.41 uIU/mL (0.27-4.20); Total Bilirubin 0.2 mg/dL (0.15-1.2); Total Protein 6.6 g/dL (6.6-8.7)
[2022-05-28] MEDS: potassium chloride ER 20 mEq Tablet PO (12:26)
[2022-05-28 12:28] VITALS: BP 145/87; PULSE 118; RESP 16; O2SAT 93
[2022-05-28] MEDS: propafenone 150 mg Tablet PO (13:01)
[2022-05-28] MEDS: metoprolol tartrate 25 mg Tablet 12.5 MG PO (13:02)
--- NOTE | 2022-05-28 13:31 | ECG_ITS ---
[facility] Test Date: 2022-05-28 Pat Name: Yadira Krishnan Department: Room: Gender: Female Beta Tester: : 1940 Requested By: Vimal Castañeda Order Number: [id number] Heath MD: Marc Greer M.D. Measurements Intervals [place] Rate: 69 P: -90 CT: 146 QRS: 16 QRSD: 91 T: 55 QT: 398 QTc: 427 Interpretive Statements SINUS RHYTHM Compared to ECG 05/28/2022 11:13:23 Sinus tachycardia no longer present T-wave abnormality no longer present Electronically Signed On 05-28-2022 21:43:30 VETERINARY BACTERIOLOGIST by Marc Greer M.D. [id number]
[2022-05-28 13:51] LABS: Troponin 5 2HR 25.88 ng/L (0-10)
[2022-05-28 13:52] LABS: Troponin 5 2HR Delta -3.12 ABS# (0-10)
[2022-05-28 14:29] VITALS: BP 157/78; PULSE 66; RESP 16; O2SAT 96
== END 2022-05-28 14:30 | disposition home or self-care (01) ==
PROVIDERS: Emergency Provider Emergency Medicine; PCP Family Medicine
DX: I48.20 Chronic atrial fibrillation, unspecified (principal); I10 Essential (primary) hypertension
CPT/HCPCS: 36415; 71045; 80053; 83735; 83880; 84443; 84484; 85025; 93005; 96365; 99285; J3475; J3490

== ENCOUNTER → 2022-06-29 09:58 | Outpatient (BNVA) | payer MEDICARE, OTHER, SELFPAY | PROVIDERS: PCP Family Medicine; Visit Provider Internal Medicine Cardiovascular Disease | DX: I48.20 Chronic atrial fibrillation, unspecified (principal); R94.39 Abnormal result of other cardiovascular function study; I11.0 Hypertensive heart disease with heart failure; I50.9 Heart failure, unspecified; R00.1 Bradycardia, unspecified | CPT/HCPCS: 99214 ==

== ENCOUNTER → 2022-07-11 14:20 | Outpatient (BNVA) | payer MEDICARE, OTHER, SELFPAY | PROVIDERS: PCP Family Medicine; Visit Provider Family Medicine | DX: C18.9 Malignant neoplasm of colon, unspecified (principal); I10 Essential (primary) hypertension; Z09 Encounter for follow-up examination after completed treatment for conditions other than malignant neoplasm | CPT/HCPCS: 80053; 82378; 85025 ==

== ENCOUNTER 2022-07-26 13:53 | Oncology outpatient (recurring) (ONCR) | payer MEDICARE, OTHER, SELFPAY | END 2022-07-28 23:59 | disposition home or self-care (01) | PROVIDERS: PCP Family Medicine; Visit Provider Internal Medicine Hematology & Oncology | DX: C18.0 Malignant neoplasm of cecum (principal); Z90.49 Acquired absence of other specified parts of digestive tract | CPT/HCPCS: 99204 ==

== ENCOUNTER 2022-10-24 12:55 | Oncology outpatient (recurring) (ONCR) | payer MEDICARE, OTHER, SELFPAY ==
[2022-10-24 13:04] VITALS: BP 133/80; PULSE 68; RESP 18; TEMP 36.6; O2SAT 94
[2022-10-24 13:22] LABS: Basophils % 0.4 %; Eosinophils # 0.4 10^3/uL (0.0-0.8); Eosinophils % 7.6 %; Hematocrit 38.9 % (37.0-47.0); Hemoglobin 12.3 g/dL (11.5-15.3); Lymphocytes # 1.6 10^3/uL (0.8-4.8); Mean Corpuscular HGB Conc 31.6 g/dL (30.0-36.0); Mean Corpuscular Hemoglobin 32.6 pg (28.0-34.0); Mean Corpuscular Volume 103.2 fl (81-99); Mean Platelet Volume 10.1 fL (7.4-10.4); Monocytes # 0.5 10^3/uL (0.2-0.9); Monocytes % 9.2 %; Neutrophils % 53.6 %; Nucleated Red Blood Cells % 0 %; Platelet Count 170 10^3/cmm (130-400); Red Blood Count 3.77 10^6/uL (4.1-5.3); Red Cell Distribution Width 13.1 % (12.1-15.1); White Blood Count 5.4 10^3/uL (4.0-10.0)
[2022-10-24 13:47] LABS: Carcinoembryonic Antigen 3.8 ng/mL (0.0-4.7)
[2022-10-24 13:58] LABS: Alanine Aminotransferase 14 U/L (0-33); Alkaline Phosphatase 98 U/L (35-105); Anion Gap 15.4 (5-19); Aspartate Amino Transferase 21 U/L (0-32); Blood Urea Nitrogen 17 mg/dL (8-23); Calcium 9.3 mg/dL (8.5-10.5); Carbon Dioxide 28 mmol/L (22-29); Chloride 100 mmol/L (98-107); Creatinine Clr Calc Pharmacy 62.9806; Globulin 2.9 g/dL (1.3-4.6); Glucose 102 mg/dL (65-115); Osmolality Calculated 290 mOsm/kg (285-295); Potassium 4.4 mmol/L (3.5-5.1); Sodium 139 mmol/L (136-145); Total Bilirubin 0.4 mg/dL (0.15-1.2); Total Protein 6.9 g/dL (6.6-8.7)
== END 2022-10-27 23:59 | disposition home or self-care (01) ==
PROVIDERS: PCP Family Medicine; Visit Provider Internal Medicine Hematology & Oncology
DX: Z08 Encounter for follow-up examination after completed treatment for malignant neoplasm (principal); Z85.038 Personal history of other malignant neoplasm of large intestine; Z90.49 Acquired absence of other specified parts of digestive tract
CPT/HCPCS: 36415; 80053; 82378; 85025; 99214

== ENCOUNTER 2022-12-14 17:23 | Emergency (ER) | payer MEDICARE, OTHER, SELFPAY ==
[2022-12-14 17:32] VITALS: BP 161/66; PULSE 60; RESP 17; TEMP 36.8; O2SAT 92
[2022-12-14 18:34] VITALS: BP 149/63; PULSE 52; O2SAT 94
--- NOTE | 2022-12-15 00:43 | W.ED.URI ---
HPI - URI/Sore Throat General: Chief Complaint: Upper Respiratory Infection Stated Complaint: nausious Time Seen by Provider: 12/14/22 17:50 Source: patient Mode of arrival: wheelchair Limitations: no limitations History of Present Illness: Patient presents to the emergency department today accompanied by her for evaluation treatment ofNasal drip. Patient reports chronic issues with allergies and states her doctor usually gives her something . She cannot remember what it is and indicates she was not able to see her doctor so she came into the ER. She has remained afebrile. She has not been coughing. She states she has nasal congestion that remains clear but, is swallowing her mucus and is making her stomach upset. She has had very little appetite and little oral intake today due to her nausea. she has not bee using OTC medication for her symptoms. Review of Systems General: Reports: 10 or more systems reviewed and unremarkable except in HPI and below PFSH ED PFSH: Medical History Anxiety Aortic valve stenosis Bradycardia by electrocardiogram Chronic atrial fibrillation Hypercholesteremia Hypertension Osteoarthritis Family History Father CAD (coronary artery disease) Mother Cancer Lung Grandmother Diabetes Denies family history of Clotting disorder Dementia Hyperlipidemia Psychiatric illness Chronic kidney disease (CKD) Suicide Anesthesia complication Bleeding disorder Lung disease Hypertension Stroke Social History Smoking and tobacco status: never smoked Alcohol intake: never Substance/Drug Use: never Physical Exam Const: COMMON NORMALS: no acute distress, patient oriented x3 and alert HENMT: COMMON NORMALS: normocephalic, atraumatic, hearing grossly normal bilaterally, external ears normal, Normal external nose present, moist oral mucous membranes and oropharynx normal HEAD & SCALP: normocephalic and atraumatic NOSE: Normal external nose present EXTERNAL EAR: Yes external ears normal Eye: COMMON NORMALS: Equal, round and reactive pupils present, EOMs intact bilaterally and conjunctivae normal CONJUNCTIVA: Yes conjunctivae normal PUPIL: Yes Equal, round and reactive pupils present Neck/C-Spine: COMMON NORMALS: no JVD Lymph: LYMPHATIC: no lymphadenopathy noted Resp: COMMON NORMALS: normal respiratory effort, No retractions and No use of accessory muscles Cardio: COMMON NORMALS: no JVD and regular rate RATE: regular rate : COMMON NORMALS: Yes no CVA tenderness BLADDER/KIDNEY EXAM: Yes no CVA tenderness Back/Pelvis: COMMON NORMALS: no CVA tenderness, thoracic and lumbar spine normal to inspection and thoraco-lumbar ROM normal Extremity: COMMON NORMALS: normal to inspection, full ROM and no pedal edema Neuro: COMMON NORMALS: patient oriented x3 SENSORIUM/ORIENTATION: Yes alert Skin: COMMON NORMALS: no rashes or lesions noted and turgor normal GENERAL SKIN EXAM: no rashes or lesions noted and turgor normal Course Vital Signs: Vital signs: Vital Signs Temperature 98.2 F 12/14/22 17:32 Pulse Rate 52 L 12/14/22 18:34 Respiratory Rate 17 12/14/22 17:32 Blood Pressure 149/63 12/14/22 18:34 Pulse Oximetry 94 12/14/22 18:34 Oxygen Delivery Me thod Room Air 12/14/22 17:32 MDM - URI/Sore Throat Medical Decision Making Patient has what appears to be postnasal drip. It appears her doctor has given her Singulair in the past so, we will attempt Singulair again as well as Flonase nasal spray. I provided her some antinausea medication and encouraged her to consider regular use of antihistamines if she continues to have issues with recurrent allergies. Otherwise, she can follow-up with her primary care provider next week for general recheck. Differential Diagnosis Likely sinusitis (Seasonal allergies, postnasal drip) and viral infection; Unlikely upper respiratory infection, bronchitis or pharyngitis Discharge Plan Discharge Patient Disposition: Home Clinical Impression: Post-nasal drip, Nausea Condition: Stable Prescriptions: New montelukast 10 mg tablet 10 mg PO DAILY Qty: 14 0RF Flonase Allergy Relief 50 mcg/actuation spray,suspension 1 spray intranasal BID PRN (Reason: allergy symptoms) Qty: 16 0RF Rx Instructions: administer into each nostril metoclopramide HCl 10 mg tablet 10 mg PO Q6H Qty: 12 0RF No Action isosorbide mononitrate 30 mg tablet extended release 24 hr 30 mg PO DAILY Qty: 30 5RF alprazolam 0.25 mg tablet 0.25 mg PO BID PRN (Reason: anxiety) Qty: 30 1RF furosemide 20 mg tablet See Rx Instructions .ROUTE .COMPLEX Qty: 180 1RF Dose Instruction: TAKE 1 TABLET BY MOUTH TWICE DAILY NEEDED FOR SWELLING Rx Instructions: TAKE 1 TABLET BY MOUTH TWICE DAILY NEEDED FOR SWELLING atorvastatin 20 mg tablet 20 mg PO DAILY 90 Days Qty: 90 1RF losartan 50 mg tablet 50 mg PO DAILY 90 Days Qty: 90 1RF tramadol 50 mg tablet 50 mg PO BID PRN (Reason: pain) Qty: 60 3RF Xarelto 10 mg tablet 10 mg PO DAILY Qty: 30 3RF cyclobenzaprine 10 mg tablet 10 mg PO BID PRN (Reason: muscle spasm) Qty: 20 1RF montelukast [Singulair] 10 mg tablet 10 mg PO DAILY Qty: 90 3RF nitrofurantoin macrocrystal [Macrodantin] 100 mg capsule 100 mg PO BID Qty: 10 1RF Rx Instructions: must administer with a meal/food propafenone 150 mg tablet See Rx Instructions .ROUTE .COMPLEX Qty: 270 1RF Dose Instruction: TAKE 1 TABLET BY MOUTH THREE TIMES DAILY Rx Instructions: TAKE 1 TABLET BY MOUTH THREE TIMES DAILY prednisolone acetate 1 % drops,suspension 1 drp ophthalmic (eye) DAILY Rx Instructions: USE IN RIGHT EYE DAILY metoprolol tartrate 25 mg tablet 12.5 mg PO TID PRN (Reason: tachycardia) Qty: 30 1RF Discharge Orders: Discharge ED (Routine); Ordered 12/14/22 Ordered By: Nicolette Yang Referrals: Princess Grande MD [Primary Care Provider] - Discharge Diet: Usual diet Discharge Activity: Increase activity as tolerated Patient Instructions: Postnasal Drip (DC) Activity Restrictions/Additional Instructions: I reviewed your chart back a couple of years and it appears that your doctor has provided you Singulair in the past for these types of symptoms. I am also supplementing you with a steroid nasal spray which can help directly decrease inflammation in the nasal passages and help with allergy symptoms. I am also providing you an antinausea pill as it is important for you to be able to stay hydrated and eat regular, healthy meals. I still recommend reaching out to your primary care doctor to make them aware of your ER evaluation as they may wish to see you for follow-up in clinic next week. If for any reason you develop fevers, begin having abdominal pain with or without vomiting, any shortness of breath or difficulty breathing you need to be seen and reevaluated here in the emergency department. Coding Level of Care Code ED Airplane Pilot Supervisor for Carlyn Villagomez
== END 2022-12-14 18:36 | disposition home or self-care (01) ==
PROVIDERS: Emergency Provider Physician Assistant; PCP Family Medicine
DX: R11.0 Nausea (principal); R09.82 Postnasal drip; I10 Essential (primary) hypertension
CPT/HCPCS: 99284

== ENCOUNTER → 2022-12-18 13:58 | Outpatient (BNVA) | payer MEDICARE, OTHER, SELFPAY | PROVIDERS: PCP Family Medicine; Visit Provider Family Medicine | DX: I50.9 Heart failure, unspecified (principal) | CPT/HCPCS: 80061 ==

== ENCOUNTER 2023-01-04 19:06 | Emergency (ER) | payer MEDICARE, OTHER, SELFPAY ==
[2023-01-04] VITALS (27 sets, daily range): BP systolic 161–181; BP diastolic 55–109; PULSE 37–57; RESP 16–31; O2SAT 92–96; BMI 45.7
--- NOTE | 2023-01-04 19:22 | XRR_ITS ---
PROCEDURE INFORMATION: Exam: XR Chest Exam date and time: 01/04/2023 7:51 PM Age: 82 years old Clinical indication: Pain; Chest pressure; Additional info: Cp TECHNIQUE: Imaging protocol: Radiologic exam of the chest. Views: 1 view. COMPARISON: CR XR chest 1V portable [id number] 05/28/2022 11:15 AM FINDINGS: Lungs: Moderate lung expansion. Cephalization of pulmonary vascular flow. No consolidation. Pleural spaces: No pleural effusion. No pneumothorax. Heart/Mediastinum: Enlarged cardiac silhouette. Mild aortic calcification. Normal mediastinum. Bones/joints: No acute osseous abnormality. XR/XR chest 1V portable [id number] IMPRESSION: 1. Enlarged cardiac silhouette which is increased in size compared to 05/28/2022 and may represent elevated intravascular volume from prior and/or pericardial effusion. 2. No radiographic evidence of pulmonary edema.
[2023-01-04 19:32] LABS: Basophils % 0.7 %; Eosinophils # 0.4 10^3/uL (0.0-0.8); Eosinophils % 6.4 %; Hematocrit 40.8 % (36-47); Lymphocytes # 2.2 10^3/uL (0.8-4.8); Lymphocytes % 35.5 %; Mean Corpuscular HGB Conc 31.1 g/dL (30-55); Mean Corpuscular Hemoglobin 31.8 pg (27-33); Mean Corpuscular Volume 102.3 fl (85-98); Mean Platelet Volume 9.9 fL (7.4-10.4); Monocytes # 0.5 10^3/uL (0.2-0.9); Monocytes % 8.7 %; Neutrophils # 2.96 10^3/uL (1.8-7.7); Neutrophils % 48.5 %; Nucleated Red Blood Cells % 0 %; Platelet Count 168 10^3/cmm (157-399); Red Blood Count 3.99 10^6/uL (3.85-5.65); Red Cell Distribution Width 14.6 % (12.1-15.1); White Blood Count 6.09 10^3/uL (3.29-11.43)
--- NOTE | 2023-01-04 19:42 | ED_ITS ---
HPI - Arrhythmia/Palpitations General: Chief Complaint: Arrhythmia/Palpitations Stated Complaint: Heart Beating to Slow Time Seen by Provider: 01/04/23 19:21 Source: patient Mode of arrival: ambulatory Limitations: no limitations History of Present Illness: 82-year-old female states that this morning her heart rate had dropped into the 30s she had some mild weakness she denies any chest pain states she otherwise been feeling completely normal. She states she is concerned as her heart rate not been that low before here its in the 50s at this time. Again denies any chest pain or worsening proving factors. She is on metoprolol. Associated symptoms: Deny nausea or vomiting Review of Systems Const: Denies: fever(s) or chills ENMT: Denies: throat pain or dental pain Card: Denies: chest pain Resp: Denies: dyspnea GI: Denies: abdominal pain, nausea, vomiting or diarrhea : Denies: dysuria Musc: Denies: neck pain or back pain Skin/Breast: Denies: rash Neuro: Denies: headache(s) PFSH ED PFSH: Medical History Anxiety Aortic valve stenosis Bradycardia by electrocardiogram Chronic atrial fibrillation Hypercholesteremia Hypertension Osteoarthritis Family History Father CAD (coronary artery disease) Mother Cancer Lung Grandmother Diabetes Denies family history of Clotting disorder Dementia Hyperlipidemia Psychiatric illness Chronic kidney disease (CKD) Suicide Anesthesia complication Bleeding disorder Lung disease Hypertension Stroke Social History Smoking and tobacco status: never smoked Alcohol intake: never Substance/Drug Use: never Physical Exam Const: COMMON NORMALS: no acute distress, patient oriented x3 and healthy appearing HENMT: COMMON NORMALS: normocephalic and atraumatic HEAD & SCALP: normocephalic and atraumatic Eye: COMMON NORMALS: conjunctivae normal CONJUNCTIVA: Yes conjunctivae normal Neck/C-Spine: COMMON NORMALS: supple Chest: COMMONS NORMALS: normal inspection of the chest and normal palpation of entire chest wall Resp: COMMON NORMALS: normal respiratory effort, No retractions, No use of accessory muscles and clear to auscultation bilaterally AUSCULTATION: clear to auscultation bilaterally Cardio: COMMON NORMALS: regular rhythm and No murmurs present (Cardio) RATE: bradycardic RHYTHM: regular rhythm GI: COMMON NORMALS: Normal to inspection, nondistended, normoactive bowel sounds present, Soft to palpation, non-tender and no masses PALPATION: Yes Soft to palpation Extremity: COMMON NORMALS: normal to inspection and full ROM Neuro: COMMON NORMALS: patient oriented x3, moves all extremities and no focal motor deficits Psych: COMMON NORMALS: mental status grossly normal, Normal thought process present and cooperative THOUGHT PROCESS: Normal thought process present Skin: COMMON NORMALS: no rashes or lesions noted and no wounds GENERAL SKIN EXAM: no rashes or lesions noted Course Vital Signs: Vital signs: Vital Signs Pulse Rate 45 L 01/04/23 21:25 Respiratory Rate 31 H 01/04/23 21:25 Blood Pressure 164/74 01/04/23 21:25 Pulse Oximetry 94 01/04/23 21:25 Oxygen Delivery Me thod Room Air 01/04/23 21:10 MDM - Arrhythmia/Palpitations Medical Decision Making Patient presents here with bradycardia as she had no symptoms here heart rates been in the 40s and 50s here no extreme bradycardia did speak to her instrumentation specialist she is to hold her metoprolol as needed she has an appoint with him on the 14th next week she is to follow-up as scheduled return if worsening she understands agrees to plan. Medical Records I reviewed the patient's medical records. Lab Data I reviewed the patient's lab results. 01/04/23 19:22 01/04/23 19:22 Radiology Impressions Chest X-Ray 01/04/23 19:22 IMPRESSION: 1. Enlarged cardiac silhouette which is increased in size compared to 05/28/2022 and may represent elevated intravascular volume from prior and/or pericardial effusion. 2. No radiographic evidence of pulmonary edema. Laboratory Results WBC 6.09 10^3/uL (3.29-11.43) 01/04/23 19: RBC 3.99 10^6/uL (3.85-5.65) 01/04/23 19:22 Hgb 12.70 g/dL (11.27-16.99) 01/04/23 19: Hct 40.8 % (36-47) 01/04/23 19: MCV 102.3 fl (85-98) H 01/04/23 19:22 MCH 31.8 pg (27-33) 01/04/23 19:22 MCHC 31.1 g/dL (30-55) 01/04/23 19:22 RDW 14.6 % (12.1-15.1) 01/04/23 19:22 Plt Count 168 10^3/cmm (157-399) 01/04/23 19:22 MPV 9.9 fL (7.4-10.4) 01/04/23 19:22 Neut % (Auto) 48.5 % 01/04/23 19:22 Lymph % (Auto) 35.5 % 01/04/23 19:22 Loving % (Auto) 8.7 % 01/04/23 19:22 Eos % (Auto) 6.4 % 01/04/23 19:22 Baso % (Auto) 0.7 % 01/04/23 19:22 Neut # (Auto) 2.96 10^3/uL (1.8-7.7) 01/04/23 19:22 Lymph # (Auto) 2.2 10^3/uL (0.8-4.8) 01/04/23 19:22 Loving # (Auto) 0.5 10^3/uL (0.2-0.9) 01/04/23 19:22 Eos # (Auto) 0.4 10^3/uL (0.0-0.8) 01/04/23 19:22 Baso # (Auto) 0.0 10^3/uL (0.0-0.1) 01/04/23 19:22 Nucleated RBC % (auto) 0 % 01/04/23 19:22 Nucleated RBCs # 0.0 /100WBC 01/04/23 19:22 Sodium 138 mmol/L (136-145) 01/04/23 19:22 Potassium 5.0 mmol/L (3.5-5.1) 01/04/23 19:22 Chloride 101 mmol/L (98-107) 01/04/23 19:22 Carbon Dioxide 27 mmol/L (22-29) 01/04/23 19:22 Anion Gap 15.0 (5-19) 01/04/23 19:22 BUN 23 mg/dL (8-23) 01/04/23 19:22 Creatinine 0.9 mg/dL (0.5-0.9) 01/04/23 19:22 GFR Calculation Not Reportable 01/04/23 19:22 Glucose 118 mg/dL (65-115) H 01/04/23 19:22 Calculated Osmolality 291 mOsm/kg (285-295) 01/04/23 19:22 Calcium 9.3 mg/dL (8.5-10.5) 01/04/23 19:22 Total Bilirubin 0.4 mg/dL (0.15-1.2) 01/04/23 19:22 AST 23 U/L (0-32) 01/04/23 19:22 ALT 13 U/L (0-33) 01/04/23 19:22 Alkaline Phosphatase 101 U/L (35-105) 01/04/23 19:22 Troponin T Baseline 36 ng/L (0-10) H 01/04/23 19:22 Troponin T 120 Minute 32.95 ng/L (0-10) H 01/04/23 20:53 Delta Troponin T -3.05 ABS# (0-10) L 01/04/23 20:53 Total Protein 7.0 g/dL (6.6-8.7) 01/04/23 19:22 Albumin 4.4 g/dL (3.5-5.2) 01/04/23 19:22 Globulin 2.6 g/dL (1.3-4.6) 01/04/23 19:22 EKG Data EKG 1: I personally reviewed and interpreted this EKG as follows: EKG interpretation date: 01/04/23 EKG interpretation time: 19:15 Interpretation: bradycardia hr [address] or t wave abnormalities qrs 96 qtc 402 Other EKG comments: Chest X-Ray 01/04/23 19:22 IMPRESSION: 1. Enlarged cardiac silhouette which is increased in size compared to 05/28/2022 and may represent elevated intravascular volume from prior and/or pericardial effusion. 2. No radiographic evidence of pulmonary edema. Discharge Plan Discharge Patient Disposition: Home Clinical Impression: Bradycardia Condition: Stable Prescriptions: No Action isosorbide mononitrate 30 mg tablet extended release 24 hr 30 mg PO DAILY Qty: 30 5RF fexofenadine [Anat Allergy] 60 mg tablet 60 mg PO BID Qty: 20 0RF Rx Instructions: INSTEAD OF ZYRTEC FOR DRAINAGE alprazolam 0.25 mg tablet 0.25 mg PO BID PRN (Reason: anxiety) Qty: 30 1RF furosemide 20 mg tablet See Rx Instructions .ROUTE .COMPLEX Qty: 180 1RF Dose Instruction: TAKE 1 TABLET BY MOUTH TWICE DAILY NEEDED FOR SWELLING Rx Instructions: TAKE 1 TABLET BY MOUTH TWICE DAILY NEEDED FOR SWELLING losartan 50 mg tablet 50 mg PO DAILY 90 Days Qty: 90 1RF tramadol 50 mg tablet 50 mg PO BID PRN (Reason: pain) Qty: 60 3RF Xarelto 10 mg tablet 10 mg PO DAILY Qty: 30 3RF cyclobenzaprine 10 mg tablet 10 mg PO BID PRN (Reason: muscle spasm) Qty: 20 1RF montelukast [Singulair] 10 mg tablet 10 mg PO DAILY Qty: 90 3RF nitrofurantoin macrocrystal [Macrodantin] 100 mg capsule 100 mg PO BID Qty: 10 1RF Rx Instructions: must administer with a meal/food atorvastatin 10 mg tablet 10 mg PO DAILY Qty: 90 1RF propafenone 150 mg tablet See Rx Instructions .ROUTE .COMPLEX Qty: 270 1RF Dose Instruction: TAKE 1 TABLET BY MOUTH THREE TIMES DAILY Rx Instructions: TAKE 1 TABLET BY MOUTH THREE TIMES DAILY prednisolone acetate 1 % drops,suspension 1 drp ophthalmic (eye) DAILY Rx Instructions: USE IN RIGHT EYE DAILY montelukast 10 mg tablet 10 mg PO DAILY Qty: 14 0RF Flonase Allergy Relief 50 mcg/actuation spray,suspension 1 spray intranasal BID PRN (Reason: allergy symptoms) Qty: 16 0RF Rx Instructions: administer into each nostril metoclopramide HCl 10 mg tablet 10 mg PO Q6H Qty: 12 0RF metoprolol tartrate 25 mg tablet 12.5 mg PO TID PRN (Reason: tachycardia) Qty: 30 1RF Discharge Orders: Discharge ED (Routine); Ordered 01/04/23 Ordered By: Quiana Grimes Referrals: Princess Grande MD [Primary Care Provider] - Tristan Adkins MD [Physician] - 1-3 days Discharge Diet: Advance as tolerated Discharge Activity: Resume usual activity Patient Instructions: Bradycardia (ED) Coding Level of Care Code ED Electronic Field Service Engineer for g Hernando
--- NOTE | 2023-01-04 19:48 | ECG_ITS ---
[facility] Test Date: 2023-01-04 Pat Name: Yadira Krishnan Department: Room: Gender: Female Elect Equip Maint Eng: : 1940 Requested By: Quiana Grimes Order Number: [id number] Heath MD: Tristan Adkins M.D. Measurements Intervals [place] Rate: 47 P: 0 ND: 0 QRS: 12 QRSD: 98 T: 66 QT: 461 QTc: 408 Interpretive Statements SUPRAVENTRICULAR BRADYCARDIA LOW QRS VOLTAGE IN PRECORDIAL LEADS [QRS DEFLECTION < 1.0 mV IN CHEST LEADS] PATTERN CONSISTENT WITH PULMONARY DISEASE Compared to ECG 05/28/2022 13:31:15 Low QRS voltage now present Sinus rhythm no longer present Electronically Signed On 01-04-2023 21:24:53 CDT by Tristan Adkins M.D. [id number]
[2023-01-04 19:50] LABS: Troponin(5th) Baseline 36 ng/L (0-10)
[2023-01-04 19:52] LABS: Alanine Aminotransferase 13 U/L (0-33); Albumin Level 4.4 g/dL (3.5-5.2); Alkaline Phosphatase 101 U/L (35-105); Aspartate Amino Transferase 23 U/L (0-32); Blood Urea Nitrogen 23 mg/dL (8-23); Calcium 9.3 mg/dL (8.5-10.5); Carbon Dioxide 27 mmol/L (22-29); Chloride 101 mmol/L (98-107); Globulin 2.6 g/dL (1.3-4.6); Glucose 118 mg/dL (65-115); Osmolality Calculated 291 mOsm/kg (285-295); Sodium 138 mmol/L (136-145); Total Bilirubin 0.4 mg/dL (0.15-1.2)
[2023-01-04 21:16] LABS: Troponin 5 2HR 32.95 ng/L (0-10)
[2023-01-04 21:18] LABS: Troponin 5 2HR Delta -3.05 ABS# (0-10)
--- NOTE | 2023-01-04 21:22 | ECG_ITS ---
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 Measurements Intervals [place] Rate: 51 P: 0 SC: 0 QRS: 14 QRSD: 96 T: 61 QT: 426 QTc: 393 Interpretive Statements SUPRAVENTRICULAR BRADYCARDIA LOW QRS VOLTAGE IN PRECORDIAL LEADS [QRS DEFLECTION < 1.0 mV IN CHEST LEADS] PATTERN CONSISTENT WITH PULMONARY DISEASE MINIMAL ST DEPRESSION [0.025+ mV ST DEPRESSION] Compared to ECG 05/28/2022 13:31:15 Low QRS voltage now present ST (T wave) deviation now present Sinus rhythm no longer present Electronically Signed On 01-04-2023 21:30:33 CDT by Tristan Adkins M.D. [id number] f
== END 2023-01-04 21:53 | disposition home or self-care (01) ==
PROVIDERS: Emergency Provider Emergency Medicine; PCP Family Medicine
DX: R00.1 Bradycardia, unspecified (principal); I10 Essential (primary) hypertension
CPT/HCPCS: 71045; 80053; 84484; 85025; 93005; 99285

== ENCOUNTER → 2023-01-11 13:43 | Outpatient (BNVA) | payer MEDICARE, OTHER, SELFPAY | PROVIDERS: PCP Family Medicine; Visit Provider Internal Medicine Cardiovascular Disease | DX: I11.0 Hypertensive heart disease with heart failure (principal); I50.9 Heart failure, unspecified; K92.2 Gastrointestinal hemorrhage, unspecified; I48.20 Chronic atrial fibrillation, unspecified; Z79.01 Long term (current) use of anticoagulants | CPT/HCPCS: 99214 ==

== ENCOUNTER 2023-01-20 18:01 | Emergency (ER) | payer MEDICARE, OTHER, SELFPAY ==
[2023-01-20 18:17] VITALS: BP 200/91; PULSE 61; RESP 17; TEMP 36.8; O2SAT 94; BMI 45.1
--- NOTE | 2023-01-20 18:56 | XRR_ITS ---
PROCEDURE INFORMATION: Exam: XR Thoracic Spine Exam date and time: 01/20/2023 7:01 PM Age: 82 years old Clinical indication: Pain in thoracic spine; Patient HX: C/O upper back pain. No injury. ; Additional info: Thoracic back pain TECHNIQUE: Imaging protocol: Radiologic exam of the thoracic spine. Views: 3 views. COMPARISON: CR (CHEST, ) 01/04/2023 7:51 PM FINDINGS: Bones/joints: Normal. No acute fracture. Normal alignment. Soft tissues: Unremarkable. XR/XR thoracic spine 2V [id number] IMPRESSION: No acute findings.
--- NOTE | 2023-01-20 19:23 | PC.NURSE ---
Received report from CHAPO Roman at 1233
--- NOTE | 2023-01-20 19:31 | W.ED.BACK ---
HPI - Back Pain/Injury General: Chief Complaint: Back Pain/Injury Stated Complaint: left side shoulder pain Time Seen by Provider: 01/20/23 18:38 History of Present Illness: Patient presents to the ER with complaints of left thoracic paraspinal muscular pain going on for the last 24 hours. Patient denies any known trauma coughing overuse straining stretching etc. patient does have a cardiac history. Said the pain is constant and pinpoint and does not radiate. Patient denies any shortness of breath diaphoresis. Review of Systems General: Reports: 10 or more systems reviewed and unremarkable except in HPI and below PFSH ED PFSH: Medical History Anxiety Aortic valve stenosis Bradycardia by electrocardiogram Chronic atrial fibrillation Hypercholesteremia Hypertension Osteoarthritis Family History Father CAD (coronary artery disease) Mother Cancer Lung Grandmother Diabetes Denies family history of Clotting disorder Dementia Hyperlipidemia Psychiatric illness Chronic kidney disease (CKD) Suicide Anesthesia complication Bleeding disorder Lung disease Hypertension Stroke Social History Smoking and tobacco status: never smoked Alcohol intake: never Substance/Drug Use: never Physical Exam Const: COMMON NORMALS: no acute distress, average body habitus, patient oriented x3, no limitations, healthy appearing, alert and well nourished HENMT: COMMON NORMALS: normocephalic, atraumatic, hearing grossly normal bilaterally, external ears normal, Normal external nose present and moist oral mucous membranes HEAD & SCALP: normocephalic and atraumatic NOSE: Normal external nose present EXTERNAL EAR: Yes external ears normal Neck/C-Spine: COMMON NORMALS: full ROM, no lymphadenopathy, supple, no meningeal signs, no JVD and Thyroid normal THYROID: Thyroid normal Chest: COMMONS NORMALS: normal inspection of the chest and normal palpation of entire chest wall Resp: COMMON NORMALS: normal respiratory effort, No retractions, No use of accessory muscles and clear to auscultation bilaterally AUSCULTATION: clear to auscultation bilaterally Cardio: COMMON NORMALS: no JVD, regular rate, regular rhythm, S1 normal heart sound present, S2 normal heart sound present, No gallops present (Cardio), No clicks present (Cardio), No murmurs present (Cardio) and No rub (Cardio) RATE: regular rate RHYTHM: regular rhythm HEART SOUNDS: S1 normal heart sound present and S2 normal heart sound present GI: COMMON NORMALS: Normal to inspection, nondistended, normoactive bowel sounds present, Soft to palpation, non-tender, No hepatosplenomegaly present and no masses PALPATION: Yes Soft to palpation and Yes No hepatosplenomegaly present Back/Pelvis: OTHER: Tender paraspinal musculature mid thoracic region on the left reproducible pain. No pain over vertebral column. Neuro: COMMON NORMALS: patient oriented x3 SENSORIUM/ORIENTATION: Yes alert MENINGEAL SIGNS: Yes no meningeal signs Course Vital Signs: Vital signs: Vital Signs Temperature 98.2 F 01/20/23 18:17 Pulse Rate 58 L 01/20/23 20:39 Respiratory Rate 17 01/20/23 19:47 Blood Pressure 199/81 01/20/23 20:39 Pulse Oximetry 93 01/20/23 20:39 Oxygen Delivery Me thod Room Air 01/20/23 20:39 MDM - Back Pain/Injury Medical Decision Making Patient presents to the ER with left paraspinal musculoskeletal pain. Patient was given 30 mg of Toradol and 60 mg Norflex IM and is helped with the pain. Patient was then given 1 [place]. Patient be discharged home to follow-up with her family practice physician on an as-needed basis. Differential Diagnosis Likely thoracic back pain; Unlikely lumbar radiculopathy, sciatica, strain of lumbar region, renal colic, pyelonephritis, AAA or discitis Medical Records I reviewed the patient's medical records. Labs I reviewed the patient's lab results. Radiology Impressions Thoracic Spine X-Ray 01/20/23 18:56 IMPRESSION: No acute findings. All radiology interpretation(s) finalized by discharge Discharge Plan Discharge Patient Disposition: Home Clinical Impression: Pain in paraspinal region Condition: Stable Prescriptions: No Action isosorbide mononitrate 30 mg tablet extended release 24 hr 30 mg PO DAILY Qty: 30 5RF fexofenadine [Anat Allergy] 60 mg tablet 60 mg PO BID Qty: 20 0RF Rx Instructions: INSTEAD OF ZYRTEC FOR DRAINAGE alprazolam 0.25 mg tablet 0.25 mg PO BID PRN (Reason: anxiety) Qty: 30 1RF furosemide 20 mg tablet See Rx Instructions .ROUTE .COMPLEX Qty: 180 1RF Dose Instruction: TAKE 1 TABLET BY MOUTH TWICE DAILY NEEDED FOR SWELLING Rx Instructions: TAKE 1 TABLET BY MOUTH TWICE DAILY NEEDED FOR SWELLING tramadol 50 mg tablet 50 mg PO BID PRN (Reason: pain) Qty: 60 3RF Xarelto 10 mg tablet 10 mg PO DAILY Qty: 30 3RF cyclobenzaprine 10 mg tablet 10 mg PO BID PRN (Reason: muscle spasm) Qty: 20 1RF montelukast [Singulair] 10 mg tablet 10 mg PO DAILY Qty: 90 3RF nitrofurantoin macrocrystal [Macrodantin] 100 mg capsule 100 mg PO BID Qty: 10 1RF Rx Instructions: must administer with a meal/food atorvastatin 10 mg tablet 10 mg PO DAILY Qty: 90 1RF propafenone 150 mg tablet See Rx Instructions .ROUTE .COMPLEX Qty: 270 1RF Dose Instruction: TAKE 1 TABLET BY MOUTH THREE TIMES DAILY Rx Instructions: TAKE 1 TABLET BY MOUTH THREE TIMES DAILY losartan 50 mg tablet 50 mg PO DAILY 90 Days Qty: 90 1RF prednisolone acetate 1 % drops,suspension 1 drp ophthalmic (eye) DAILY Rx Instructions: USE IN RIGHT EYE DAILY montelukast 10 mg tablet 10 mg PO DAILY Qty: 14 0RF Flonase Allergy Relief 50 mcg/actuation spray,suspension 1 spray intranasal BID PRN (Reason: allergy symptoms) Qty: 16 0RF Rx Instructions: administer into each nostril metoclopramide HCl 10 mg tablet 10 mg PO Q6H Qty: 12 0RF metoprolol tartrate 25 mg tablet 12.5 mg PO TID PRN (Reason: tachycardia) Qty: 30 1RF Discharge Orders: Discharge ED (Routine); Ordered 01/20/23 Ordered By: Abner Pineda Referrals: Princess Grande MD [Primary Care Provider] - 1 week Patient Instructions: Musculoskeletal Pain (ED), Thoracic Pain (ED) Activity Restrictions/Additional Instructions: Your pain is in the thoracic paraspinal musculature. Please continue your Tylenol and tramadol as directed. Please consider [id number] muscle rubs and patches. As well as heat and gentle massage. Follow-up with your family practice doctor in 7 days as needed for further evaluation and treatment. Coding Level of Care Code ED Spool Carrier for Carlyn Villagomez
[2023-01-20] MEDS: ketorolac 30 mg/mL INJ IM (19:43)
[2023-01-20] MEDS: orphenadrine 30 mg/mL Inj 2 mL 60 MG IM (19:43)
[2023-01-20 19:47] VITALS: BP 200/84; PULSE 56; RESP 17; O2SAT 94
[2023-01-20 20:06] VITALS: BP 200/84
[2023-01-20] MEDS: cloNIDine 0.1 mg Tablet 0.2 MG PO (20:06)
[2023-01-20 20:39] VITALS: BP 199/81; PULSE 58; O2SAT 93
[2023-01-20 21:48] VITALS: BP 174/79; PULSE 60; RESP 18; O2SAT 92
[2023-01-20] MEDS: HYDROcodone-acetaminophen 5-325 mg Tablet 1 TAB PO (21:48)
== END 2023-01-20 21:55 | disposition home or self-care (01) ==
PROVIDERS: Emergency Provider Emergency Medicine; PCP Family Medicine
DX: M79.18 Myalgia, other site (principal); I10 Essential (primary) hypertension
CPT/HCPCS: 72070; 96372; 99284; J1885; J2360

== ENCOUNTER 2023-01-24 13:05 | Oncology outpatient (recurring) (ONCR) | payer MEDICARE, OTHER, SELFPAY ==
[2023-01-24 15:02] LABS: Basophils % 0.2 %; Eosinophils # 0.4 10^3/uL (0.0-0.8); Eosinophils % 6.6 %; Hematocrit 39.9 % (36-47); Lymphocytes # 1.4 10^3/uL (0.8-4.8); Lymphocytes % 25.6 %; Mean Corpuscular HGB Conc 30.8 g/dL (30-55); Mean Corpuscular Hemoglobin 31.8 pg (27-33); Mean Corpuscular Volume 103.1 fl (85-98); Mean Platelet Volume 10.4 fL (7.4-10.4); Monocytes # 0.4 10^3/uL (0.2-0.9); Monocytes % 7.2 %; Neutrophils # 3.27 10^3/uL (1.8-7.7); Nucleated Red Blood Cells % 0 %; Platelet Count 152 10^3/cmm (157-399); Red Blood Count 3.87 10^6/uL (3.85-5.65); Red Cell Distribution Width 14.3 % (12.1-15.1); White Blood Count 5.44 10^3/uL (3.29-11.43)
[2023-01-24 15:28] LABS: Carcinoembryonic Antigen 3.7 ng/mL (0.0-4.7)
[2023-01-24 15:40] LABS: Alanine Aminotransferase 18 U/L (0-33); Albumin Level 4.3 g/dL (3.5-5.2); Alkaline Phosphatase 100 U/L (35-105); Anion Gap 15.6 (5-19); Aspartate Amino Transferase 24 U/L (0-32); Blood Urea Nitrogen 25 mg/dL (8-23); Calcium 9.8 mg/dL (8.5-10.5); Carbon Dioxide 26 mmol/L (22-29); Chloride 103 mmol/L (98-107); Globulin 2.8 g/dL (1.3-4.6); Glucose 101 mg/dL (65-115); Osmolality Calculated 295 mOsm/kg (285-295); Potassium 4.6 mmol/L (3.5-5.1); Sodium 140 mmol/L (136-145); Total Bilirubin 0.9 mg/dL (0.15-1.2); Total Protein 7.1 g/dL (6.6-8.7)
== END 2023-01-27 23:59 | disposition home or self-care (01) ==
PROVIDERS: PCP Family Medicine; Visit Provider Internal Medicine Hematology & Oncology
DX: C18.9 Malignant neoplasm of colon, unspecified (principal); Z79.899 Other long term (current) drug therapy
CPT/HCPCS: 36415; 80053; 82378; 85025; 99214

== ENCOUNTER → 2023-02-05 14:45 | Outpatient (BNVA) | payer MEDICARE, OTHER, SELFPAY | PROVIDERS: PCP Family Medicine; Visit Provider Family Medicine | DX: E78.00 Pure hypercholesterolemia, unspecified (principal); I50.9 Heart failure, unspecified; I10 Essential (primary) hypertension; I48.0 Paroxysmal atrial fibrillation; C18.9 Malignant neoplasm of colon, unspecified | CPT/HCPCS: 80053; 80061 ==

== ENCOUNTER 2023-05-03 11:31 | Oncology outpatient (recurring) (ONCR) | payer MEDICARE, OTHER, SELFPAY ==
[2023-05-03 12:00] VITALS: BP 169/84; PULSE 66; RESP 16; TEMP 36.3; O2SAT 95
[2023-05-03 12:15] LABS: Basophils % 0.3 %; Eosinophils # 0.4 10^3/uL (0.0-0.8); Eosinophils % 7.3 %; Hematocrit 38.8 % (36-47); Lymphocytes # 1.4 10^3/uL (0.8-4.8); Mean Corpuscular HGB Conc 31.2 g/dL (30-55); Mean Corpuscular Hemoglobin 31.9 pg (27-33); Mean Corpuscular Volume 102.4 fl (85-98); Mean Platelet Volume 9.9 fL (7.4-10.4); Monocytes # 0.5 10^3/uL (0.2-0.9); Monocytes % 8.1 %; Neutrophils # 3.46 10^3/uL (1.8-7.7); Nucleated Red Blood Cells % 0 %; Platelet Count 143 10^3/cmm (157-399); Red Blood Count 3.79 10^6/uL (3.85-5.65); Red Cell Distribution Width 13.8 % (12.1-15.1); White Blood Count 5.78 10^3/uL (3.29-11.43)
[2023-05-03 12:37] LABS: Alanine Aminotransferase 14 U/L (0-33); Albumin Level 4.1 g/dL (3.5-5.2); Alkaline Phosphatase 117 U/L (35-105); Aspartate Amino Transferase 23 U/L (0-32); Blood Urea Nitrogen 21 mg/dL (8-23); Calcium 9.6 mg/dL (8.5-10.5); Carbon Dioxide 28 mmol/L (22-29); Chloride 102 mmol/L (98-107); Globulin 3.3 g/dL (1.3-4.6); Glucose 114 mg/dL (65-115); Osmolality Calculated 294 mOsm/kg (285-295); Sodium 140 mmol/L (136-145); Total Bilirubin 0.6 mg/dL (0.15-1.2); Total Protein 7.4 g/dL (6.6-8.7)
[2023-05-03 13:13] LABS: Carcinoembryonic Antigen 3.4 ng/mL (0.0-4.7)
== END 2023-05-30 23:59 | disposition home or self-care (01) ==
PROVIDERS: Internal Medicine Medical Oncology; PCP Family Medicine; Visit Provider Internal Medicine Hematology & Oncology
DX: C18.9 Malignant neoplasm of colon, unspecified (principal); Z79.899 Other long term (current) drug therapy
CPT/HCPCS: 36415; 80053; 82378; 85025; 99214

== ENCOUNTER → 2023-06-21 15:50 | Outpatient (BNVA) | payer MEDICARE, OTHER, SELFPAY | PROVIDERS: PCP Family Medicine; Visit Provider Internal Medicine Cardiovascular Disease | DX: R07.9 Chest pain, unspecified (principal); R00.2 Palpitations; I48.20 Chronic atrial fibrillation, unspecified; I50.9 Heart failure, unspecified; R00.1 Bradycardia, unspecified; I35.0 Nonrheumatic aortic (valve) stenosis; R94.39 Abnormal result of other cardiovascular function study | CPT/HCPCS: 93005; 99214 ==

== ENCOUNTER 2023-07-06 18:41 | Emergency (ER) | payer MEDICARE, OTHER, SELFPAY ==
[2023-07-06 18:43] VITALS: PULSE 66; RESP 18; TEMP 36.8; O2SAT 95; BMI 31.1
--- NOTE | 2023-07-06 18:54 | ED_ITS ---
HPI - General Adult 2 General: Chief complaint: Chest Pain Stated complaint: fatigue Time Seen by Provider: 07/06/23 18:43 History of Present Illness: Presents to the ER by EMS with complaints of slow heart rate and fatigue. Patient said her heart rate is got all way down to [address]pm[address] Patient has seen Dr[address] Adkins about this for couple times. She says he has talked her about a pacemaker. Patient has a Holter monitor on currently. Patient says her heart rate normally is in the upper 50s. Review of Systems 2 General: Reports: 10 or more systems reviewed and unremarkable except in HPI and below PFSH ED 2 PFSH: Medical History Osteoarthritis Aortic valve stenosis Anxiety Bradycardia by electrocardiogram Hypertension Chronic atrial fibrillation Hypercholesteremia Surgical History Hx of cholecystectomy Family History Father CAD (coronary artery disease) Mother Cancer Lung Grandmother Diabetes Denies family history of Clotting disorder Dementia Hyperlipidemia Psychiatric illness Chronic kidney disease (CKD) Suicide Anesthesia complication Bleeding disorder Lung disease Hypertension Stroke Social History Smoking and tobacco/nicotine status: never used tobacco/nicotine Alcohol intake: never Substance/Drug Use: never Physical Exam 2 Const: COMMON NORMALS: no acute distress, average body habitus, patient oriented x3, no limitations, healthy appearing, alert and well nourished HENMT: COMMON NORMALS: normocephalic, atraumatic, hearing grossly normal bilaterally, external ears normal, Normal external nose present, moist oral mucous membranes and oropharynx normal HEAD & SCALP: normocephalic and atraumatic NOSE: Normal external nose present EXTERNAL EAR: Yes external ears normal Neck/C-Spine: COMMON NORMALS: no JVD Chest: COMMONS NORMALS: normal inspection of the chest and normal palpation of entire chest wall Resp: COMMON NORMALS: normal respiratory effort, No retractions, No use of accessory muscles and clear to auscultation bilaterally AUSCULTATION: clear to auscultation bilaterally Cardio: COMMON NORMALS: no JVD, regular rate, regular rhythm, S1 normal heart sound present, S2 normal heart sound present, No gallops present (Cardio), No murmurs present (Cardio) and No rub (Cardio) RATE: regular rate RHYTHM: r egular rhythm HEART SOUNDS: S1 normal heart sound present and S2 normal heart sound present GI: COMMON NORMALS: Normal to inspection, nondistended, normoactive bowel sounds present, Soft to palpation, non-tender, No hepatosplenomegaly present and no masses PALPATION: Yes Soft to palpation and Yes No hepatosplenomegaly present Neuro: COMMON NORMALS: patient oriented x3 SENSORIUM/ORIENTATION: Yes alert Course 2 Vital Signs: Vital signs: Vital Signs Temperature 98.3 F 07/06/23 18:43 Pulse Rate 53 L 07/06/23 21:51 Respiratory Rate 18 07/06/23 21:51 Blood Pressure 177/64 07/06/23 21:51 Pulse Oximetry 93 07/06/23 21:51 Oxygen Delivery Me thod Room Air 07/06/23 18:43 MDM - General Adult Medical Decision Making Patient's EKG states she stayed bradycardic in the 50s but never went below the 50s and when it was not symptomatic. Patient had lab work as well as serial EKGs and serial troponins. Baseline troponin was 49, 2-hour troponin was 45, for delta of -3, BNP was approximately 1000, no pulmonary edema seen on chest x- ray. Results was discussed with the patient and her how she is probably due for the pacemaker that her Dr. Adkins is been talking about and was instructed that she needs to call Dr. Adkins's office on Sunday and tell him she was here in the ER and see if she can see him for further evaluation and treatment. Differential Diagnosis Symptomatic bradycardia Medical Records I reviewed the patient's medical records. Lab Data I reviewed the patient's lab results. 07/06/23 19:00 07/06/23 19:00 Radiology Impressions Chest X-Ray 07/06/23 18:56 IMPRESSION: Cardiomegaly, negative for infiltrate. Laboratory Results WBC 6.46 10^3/uL (3.29-11.43) 07/06/23 19:00 RBC 3.90 10^6/uL (3.85-5.65) 07/06/23 19:00 Hgb 12.60 g/dL (11.27-16.99) 07/06/23 19:00 Hct 40.4 % (36-47) 07/06/23 19:00 MCV 103.6 fl (85-98) H 07/06/23 19:00 MCH 32.3 pg (27-33) 07/06/23 19:00 MCHC 31.2 g/dL (30-55) 07/06/23 19:00 RDW 14.3 % (12.1-15.1) 07/06/23 19:00 Plt Count 166 10^3/cmm (157-399) 07/06/23 19:00 MPV 10.4 fL (7.4-10.4) 07/06/23 19:00 Neut % (Auto) 51.0 % 07/06/23 19:00 Lymph % (Auto) 34.4 % 07/06/23 19:00 [place] % (Auto) 9.3 % 07/06/23 19:00 Eos % (Auto) 4.8 % 07/06/23 19:00 Baso % (Auto) 0.3 % 07/06/23 19:00 Neut # (Auto) 3.30 10^3/uL (1.8-7.7) 07/06/23 19:00 Lymph # (Auto) 2.2 10^3/uL (0.8-4.8) 07/06/23 19:00 [place] # (Auto) 0.6 10^3/uL (0.2-0.9) 07/06/23 19:00 Eos # (Auto) 0.3 10^3/uL (0.0-0.8) 07/06/23 19:00 Baso # (Auto) 0.0 10^3/uL (0.0-0.1) 07/06/23 19:00 Nucleated RBC % (auto) 0 % 07/06/23 19:00 Nucleated RBCs # 0.0 /100WBC 07/06/23 19:00 Sodium 140 mmol/L (136-145) 07/06/23 19:00 Potassium 4.3 mmol/L (3.5-5.1) 07/06/23 19:00 Chloride 102 mmol/L (98-107) 07/06/23 19:00 Carbon Dioxide 28 mmol/L (22-29) 07/06/23 19:00 Anion Gap 14.3 (5-19) 07/06/23 19:00 BUN 25 mg/dL (8-23) H 07/06/23 19:00 Creatinine 1.0 mg/dL (0.5-0.9) H 07/06/23 19:00 GFR Calculation Not Reportable 07/06/23 19:00 Glucose 123 mg/dL (65-115) H 07/06/23 19:00 Calculated Osmolality 296 mOsm/kg (285-295) H 07/06/23 19:00 Calcium 9.6 mg/dL (8.5-10.5) 07/06/23 19:00 Magnesium 2.1 mg/dL (1.7-2.3) 07/06/23 19:00 Total Bilirubin 0.6 mg/dL (0.15-1.2) 07/06/23 19:00 AST 26 U/L (0-32) 07/06/23 19:00 ALT 17 U/L (0-33) 07/06/23 19:00 Alkaline Phosphatase 128 U/L (35-105) H 07/06/23 19:00 Troponin T Baseline 49 ng/L (0-10) H 07/06/23 19:00 Troponin T 120 Minute 45.84 ng/L (0-10) H 07/06/23 20:42 Delta Troponin T -3.16 ABS# (0-10) L 07/06/23 20:42 NT-Pro-B Natriuret Pep 1013 pg/mL (0-450) H 07/06/23 19:00 Total Protein 7.3 g/dL (6.6-8.7) 07/06/23 19:00 Albumin 4.1 g/dL (3.5-5.2) 07/06/23 19:00 Globulin 3.2 g/dL (1.3-4.6) 07/06/23 19:00 TSH 3.78 uIU/mL (0.27-4.20) 07/06/23 19:00 All radiology interpretation(s) finalized by discharge EKG Data EKG 1: I personally reviewed and interpreted this EKG as follows: EKG interpretation date: 07/06/23 EKG interpretation time: 19:12 Prior EKG tracings: not available for review Interpretation: Ventricular rate 56 bpm, QRS duration 435, atrial fibrillation with slow ventricular response Computer generated interpretation: Chest X-Ray 07/06/23 18:56 IMPRESSION: Cardiomegaly, negative for infiltrate. EKG 2: I personally reviewed and interpreted this EKG as follows: EKG interpretation date: 07/06/23 EKG interpretation time: 21:03 Prior EKG tracings: available for review Interpretation: Ventricular rate 56 bpm, SD interval 118, QRS duration 98, QTc of 429, sinus bradycardia with short SD interval with occasional PVC Computer generated interpretation: Chest X-Ray 07/06/23 18:56 IMPRESSION: Cardiomegaly, negative for infiltrate. Discharge Plan Discharge Patient Disposition: Home Clinical Impression: Symptomatic bradycardia Condition: Stable Prescriptions: No Action fexofenadine [Anat Allergy] 60 mg tablet 60 mg PO BID Qty: 20 0RF Rx Instructions: INSTEAD OF ZYRTEC FOR DRAINAGE propafenone 150 mg tablet See Rx Instructions .ROUTE .COMPLEX Qty: 270 1RF Dose Instruction: TAKE 1 TABLET BY MOUTH THREE TIMES DAILY Rx Instructions: TAKE 1 TABLET BY MOUTH THREE TIMES DAILY tramadol 50 mg tablet 50 mg PO BID PRN (Reason: pain) Qty: 60 3RF hydrocortisone acetate [Anusol-HC] 25 mg suppository 25 mg SD DAILY Qty: 24 1RF montelukast 10 mg tablet See Rx Instructions .ROUTE .COMPLEX Qty: 90 1RF Dose Instruction: TAKE 1 TABLET BY MOUTH DAILY Rx Instructions: TAKE 1 TABLET BY MOUTH DAILY furosemide 20 mg tablet See Rx Instructions .ROUTE .COMPLEX Qty: 180 1RF Dose Instruction: TAKE 1 TABLET BY MOUTH TWICE DAILY NEEDED FOR SWELLING Rx Instructions: TAKE 1 TABLET BY MOUTH TWICE DAILY NEEDED FOR SWELLING losartan 50 mg tablet 50 mg PO DAILY 90 Days Qty: 90 2RF atorvastatin 10 mg tablet 10 mg PO DAILY Qty: 90 1RF prednisolone acetate 1 % drops,suspension 1 drp ophthalmic (eye) DAILY Rx Instructions: USE IN RIGHT EYE DAILY Flonase Allergy Relief 50 mcg/actuation spray,suspension 1 spray intranasal BID PRN (Reason: allergy symptoms) Qty: 16 0RF Rx Instructions: administer into each nostril metoclopramide HCl 10 mg tablet 10 mg PO Q6H Qty: 12 0RF Discharge Orders: Discharge ED (Routine); Ordered 07/06/23 Ordered By: Abner Pineda Referrals: Princess Grande MD [Primary Care Provider] - 1 week Patient Instructions: Bradycardia (ED) Activity Restrictions/Additional Instructions: Your evaluation in ER did not show any acute cause of your bradycardia. Please call Dr. Adkins's office on Sunday and let him know you are in the ER and try to arrange follow-up for further evaluation and treatment. If your symptoms return or worsen please feel free to return to the ER. Coding Level of Care Code ED Rail Filler for Carlyn Villagomez
--- NOTE | 2023-07-06 18:56 | XRR_ITS ---
PROCEDURE INFORMATION: Exam: XR Chest Exam date and time: 07/06/2023 7:06 PM Age: 82 years old Clinical indication: Other: Bradycardic; Additional info: Bradycardia TECHNIQUE: Imaging protocol: Radiologic exam of the chest. Views: 1 view. COMPARISON: CR (CHEST, ) 01/04/2023 7:51 PM FINDINGS: Lungs: Unremarkable. No consolidation. Pleural spaces: Unremarkable. No pleural effusion. No pneumothorax. Heart/Mediastinum: Cardiomegaly. Bones/joints: Unremarkable. XR/XR chest 1V portable [id number] IMPRESSION: Cardiomegaly, negative for infiltrate.
[2023-07-06 19:08] VITALS: BP 178/82
--- NOTE | 2023-07-06 19:12 | ECG_ITS ---
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 Measurements Intervals [place] Rate: 56 P: 0 NV: 0 QRS: 20 QRSD: 101 T: 86 QT: 445 QTc: 429 Interpretive Statements ATRIAL FIBRILLATION WITH SLOW VENTRICULAR RESPONSE WITH ABERRANT CONDUCTION OR VENTRICULAR PREMATURE COMPLEXES MODERATE ST DEPRESSION [0.05+ mV ST DEPRESSION] Compared to ECG 06/21/2023 15:55:50 Ventricular premature complex(es) now present Aberrant conduction of supraventricular beat(s) now present ST (T wave) deviation still present Electronically Signed On 07-07-2023 8:49:26 DIESEL CRANE OPERATOR by Cody Muhammad M.D. [id number]
[2023-07-06 19:17] LABS: Basophils % 0.3 %; Eosinophils # 0.3 10^3/uL (0.0-0.8); Eosinophils % 4.8 %; Hematocrit 40.4 % (36-47); Lymphocytes # 2.2 10^3/uL (0.8-4.8); Lymphocytes % 34.4 %; Mean Corpuscular HGB Conc 31.2 g/dL (30-55); Mean Corpuscular Hemoglobin 32.3 pg (27-33); Mean Corpuscular Volume 103.6 fl (85-98); Mean Platelet Volume 10.4 fL (7.4-10.4); Monocytes # 0.6 10^3/uL (0.2-0.9); Monocytes % 9.3 %; Nucleated Red Blood Cells % 0 %; Platelet Count 166 10^3/cmm (157-399); Red Cell Distribution Width 14.3 % (12.1-15.1); White Blood Count 6.46 10^3/uL (3.29-11.43)
[2023-07-06 19:29] LABS: Troponin(5th) Baseline 49 ng/L (0-10)
[2023-07-06 19:36] LABS: Alanine Aminotransferase 17 U/L (0-33); Albumin Level 4.1 g/dL (3.5-5.2); Alkaline Phosphatase 128 U/L (35-105); Anion Gap 14.3 (5-19); Aspartate Amino Transferase 26 U/L (0-32); Blood Urea Nitrogen 25 mg/dL (8-23); Calcium 9.6 mg/dL (8.5-10.5); Carbon Dioxide 28 mmol/L (22-29); Chloride 102 mmol/L (98-107); Creatinine Clr Calc Pharmacy 40.2646; Globulin 3.2 g/dL (1.3-4.6); Glucose 123 mg/dL (65-115); Magnesium 2.1 mg/dL (1.7-2.3); NT Pro B Type Natriuretic Pept 1013 pg/mL (0-450); Osmolality Calculated 296 mOsm/kg (285-295); Potassium 4.3 mmol/L (3.5-5.1); Sodium 140 mmol/L (136-145); Thyroid Stimulating Hormone 3.78 uIU/mL (0.27-4.20); Total Bilirubin 0.6 mg/dL (0.15-1.2); Total Protein 7.3 g/dL (6.6-8.7)
[2023-07-06 19:48] VITALS: BP 161/69; PULSE 57; RESP 20; O2SAT 92
[2023-07-06 20:36] VITALS: BP 185/75; PULSE 51; RESP 16; O2SAT 93
--- NOTE | 2023-07-06 20:57 | ECG_ITS ---
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 Measurements Intervals [place] Rate: 56 P: 150 WA: 118 QRS: 22 QRSD: 98 T: 85 QT: 438 QTc: 423 Interpretive Statements SINUS BRADYCARDIA WITH SHORT WA INTERVAL WITH OCCASIONAL SUPRAVENTRICULAR PREMATURE COMPLEXES MINIMAL ST DEPRESSION [0.025+ mV ST DEPRESSION] Compared to ECG 07/06/2023 19:12:28 Short [place] interval now present Atrial fibrillation no longer present Ventricular premature complex(es) no longer present Aberrant conduction of supraventricular beat(s) no longer present ST (T wave) deviation still present Electronically Signed On 07-07-2023 8:50:10 CHILD AND YOUTH PROGRAM ASSISTANT by Cody Muhammad M.D. [id number]
[2023-07-06 21:11] LABS: Troponin 5 2HR 45.84 ng/L (0-10)
[2023-07-06 21:15] LABS: Troponin 5 2HR Delta -3.16 ABS# (0-10)
[2023-07-06 21:51] VITALS: BP 177/64; PULSE 53; RESP 18; O2SAT 93
== END 2023-07-06 21:52 | disposition home or self-care (01) ==
PROVIDERS: Emergency Provider Emergency Medicine; PCP Family Medicine
DX: R00.1 Bradycardia, unspecified (principal); I10 Essential (primary) hypertension
CPT/HCPCS: 71045; 80053; 83735; 83880; 84443; 84484; 85025; 93005; 99285

== ENCOUNTER → 2023-07-31 13:59 | Outpatient (BNVA) | payer MEDICARE, OTHER, SELFPAY | PROVIDERS: PCP Family Medicine; Visit Provider Internal Medicine Cardiovascular Disease | DX: I44.30 Unspecified atrioventricular block (principal); I48.0 Paroxysmal atrial fibrillation; D50.8 Other iron deficiency anemias; I50.9 Heart failure, unspecified; R94.39 Abnormal result of other cardiovascular function study | CPT/HCPCS: 99214 ==

== ENCOUNTER → 2023-08-20 11:15 | Outpatient (BNVA) | payer MEDICARE, OTHER, SELFPAY | PROVIDERS: PCP Family Medicine; Visit Provider Thoracic Surgery (Cardiothoracic Vascular Surgery) | DX: I44.30 Unspecified atrioventricular block (principal) | CPT/HCPCS: 99203 ==

== ENCOUNTER 2023-09-26 13:01 | Oncology outpatient (recurring) (ONCR) | payer MEDICARE, OTHER, SELFPAY ==
[2023-09-26 13:26] LABS: Basophils % 0.6 %; Eosinophils # 0.4 10^3/uL (0.0-0.8); Eosinophils % 7.5 %; Hematocrit 37.2 % (36-47); Lymphocytes # 1.4 10^3/uL (0.8-4.8); Lymphocytes % 27.5 %; Mean Corpuscular HGB Conc 31.7 g/dL (30-55); Mean Corpuscular Hemoglobin 32.2 pg (27-33); Mean Corpuscular Volume 101.6 fl (85-98); Mean Platelet Volume 9.8 fL (7.4-10.4); Monocytes # 0.5 10^3/uL (0.2-0.9); Monocytes % 9.5 %; Neutrophils # 2.71 10^3/uL (1.8-7.7); Neutrophils % 54.7 %; Nucleated Red Blood Cells % 0 %; Platelet Count 168 10^3/cmm (157-399); Red Blood Count 3.66 10^6/uL (3.85-5.65); Red Cell Distribution Width 13.3 % (12.1-15.1); White Blood Count 4.95 10^3/uL (3.29-11.43)
[2023-09-26 13:51] LABS: Carcinoembryonic Antigen 3.2 ng/mL (0.0-4.7)
[2023-09-26 14:04] LABS: Alanine Aminotransferase 13 U/L (0-33); Albumin Level 3.6 g/dL (3.5-5.2); Alkaline Phosphatase 121 U/L (35-105); Anion Gap 14.1 (5-19); Aspartate Amino Transferase 23 U/L (0-32); Blood Urea Nitrogen 18 mg/dL (8-23); Calcium 9.3 mg/dL (8.5-10.5); Carbon Dioxide 26 mmol/L (22-29); Chloride 105 mmol/L (98-107); Globulin 3.2 g/dL (1.3-4.6); Glucose 100 mg/dL (65-115); Osmolality Calculated 294 mOsm/kg (285-295); Potassium 4.1 mmol/L (3.5-5.1); Sodium 141 mmol/L (136-145); Total Bilirubin 0.4 mg/dL (0.15-1.2); Total Protein 6.8 g/dL (6.6-8.7)
== END 2023-09-28 23:59 | disposition home or self-care (01) ==
PROVIDERS: Nurse Practitioner Family; PCP Family Medicine; Visit Provider Internal Medicine Medical Oncology
DX: Z08 Encounter for follow-up examination after completed treatment for malignant neoplasm (principal); Z85.038 Personal history of other malignant neoplasm of large intestine; Z90.49 Acquired absence of other specified parts of digestive tract
CPT/HCPCS: 36415; 80053; 82378; 85025; 99213

== ENCOUNTER 2023-10-01 05:59 | Day surgery (SDC) | payer MEDICARE, OTHER, SELFPAY ==
[2023-09-13 13:30] LABS: Basophils % 0.4 %; Eosinophils # 0.4 10^3/uL (0.0-0.8); Eosinophils % 5.5 %; Hematocrit 40.5 % (36-47); Lymphocytes # 2.4 10^3/uL (0.8-4.8); Lymphocytes % 32.6 %; Mean Corpuscular HGB Conc 31.1 g/dL (30-55); Mean Corpuscular Hemoglobin 32.1 pg (27-33); Mean Corpuscular Volume 103.1 fl (85-98); Mean Platelet Volume 9.8 fL (7.4-10.4); Monocytes # 0.6 10^3/uL (0.2-0.9); Monocytes % 7.4 %; Neutrophils # 4.01 10^3/uL (1.8-7.7); Neutrophils % 53.8 %; Nucleated Red Blood Cells % 0 %; Platelet Count 176 10^3/cmm (157-399); Red Blood Count 3.93 10^6/uL (3.85-5.65); Red Cell Distribution Width 13.9 % (12.1-15.1); White Blood Count 7.45 10^3/uL (3.29-11.43)
--- NOTE | 2023-09-13 13:39 | ANES.PREANE2 ---
Pre-Anesthetic Assessment Height/Weight: Height 1.57 m Operation Date: 09/17/23 07:00 Proposed Procedures p Pacemaker Insertion [id number], I44.30(Not Applicable) - Stephane Sargent MD Familial anesthetic complications: none Was Beta Karen taken within 24 hours: N/A Was Clonidine taken within 24 hours: N/A Social No alcohol and No tobacco Exam alert, oriented x 3, clear to auscultation bilaterally and regular rate & rhythm Airway Submandibular: within normal limits Cervical ROM: within normal limits Mallampati: Class II Dentition: false CV/HEM Atrial Fibrillation, Anemia, Arrythmia, Hypertension and Murmur --mild '22, EF 60% Chronic Renal Insufficiency Metabolic Morbid Obesity Neuropsych Anxiety Anesthetic Plan ASA status: 3 Anesthesia: General Medications/Allergies Home Medications Medication Instructions Recorded Confirmed Last Taken Type prednisolone acetate 1 % eye 1 drp ophthalmic (eye) DAILY 10/28/20 09/13/23 09/13/23 History drops,suspension fluticasone propionate 50 1 spray intranasal BID PRN allergy 12/14/22 09/13/23 Unknown Rx mcg/actuation nasal symptoms #16 grams spray,suspension (Flonase Allergy Relief) tramadol 50 mg tablet 50 mg PO BID PRN pain #60 tabs 02/08/23 09/13/23 09/12/23 Rx losartan 50 mg tablet 50 mg PO DAILY 90 days #90 tabs 06/19/23 09/13/23 09/13/23 Rx atorvastatin 10 mg tablet 10 mg PO DAILY #90 tabs 06/25/23 09/13/23 Unknown Rx fexofenadine 60 mg tablet (Anat 60 mg PO DAILY 08/20/23 09/13/23 09/13/23 History Allergy) hydrocortisone acetate 25 mg 25 mg [place] DAILY PRN Hemorrhoids 08/20/23 09/13/23 Unknown History rectal suppository (Anusol-HC) furosemide 20 mg tablet 20 mg PO DAILY PRN swelling 09/13/23 09/06/23 History montelukast 10 mg tablet 10 mg PO DAILY 09/13/23 09/13/23 09/13/23 History propafenone 150 mg tablet 150 mg PO TID 09/13/23 09/13/23 Unknown History red yeast rice 600 mg capsule 600 mg PO BID 09/13/23 09/13/23 09/13/23 History Allergies Allergy/AdvReac Type Severity Reaction Status Date / Time No Known Allergies Allergy Verified 09/13/23 12:55 [facility] Anesthesia Medical History Osteoarthritis Aortic valve stenosis Anxiety Bradycardia by electrocardiogram Hypertension Chronic atrial fibrillation Hypercholesteremia Surgical History Hx of cholecystectomy Family History Father CAD (coronary artery disease) Mother Cancer Lung Grandmother Diabetes Denies family history of Clotting disorder Dementia Hyperlipidemia Psychiatric illness Chronic kidney disease (CKD) Suicide Anesthesia complication Bleeding disorder Lung disease Hypertension Stroke Social History Smoking and tobacco/nicotine status: never used tobacco/nicotine Alcohol intake: never Substance/Drug Use: never Data Anesthesia 09/13/23 13:15 09/13/23 13:15 Short CBC 09/13/23 Range/Units 13:15 WBC 7.45 (3.29-11.43) 10^3/uL Hgb 12.60 (11.27-16.99) g/dL Hct 40.5 (36-47) % MCV 103.1 H (85-98) fl Plt Count 176 (157-399) 10^3/cmm Neut % (Auto) 53.8 % Neut # (Auto) 4.01 (1.8-7.7) 10^3/uL Cardiac Studies: Echocardiogram 03/12/22 Sestamibi Stress Test (Cardiology) 04/12/22 Cardiac Event Monitor 06/26/23 Holter Monitor 06/14/21
[2023-09-13 13:49] LABS: Anion Gap 13.6 (5-19); Blood Urea Nitrogen 15 mg/dL (8-23); Calcium 9.4 mg/dL (8.5-10.5); Carbon Dioxide 30 mmol/L (22-29); Chloride 99 mmol/L (98-107); Glucose 106 mg/dL (65-115); Osmolality Calculated 289 mOsm/kg (285-295); Potassium 3.6 mmol/L (3.5-5.1); Sodium 139 mmol/L (136-145)
[2023-09-13 13:52] LABS: Add Urine Microscopic? YES; Bilirubin Urine Neg (Negative); Blood Urine Neg (Negative); Glucose Urine UA Norm (Normal); Ketones Urine Negative (Negative); Leukocyte Esterase Urine 1+ (Negative); Nitrate Urine Negative (Negative); Protein Urine Neg (Negative); RBC Urine 0-4 /hpf (0-2); Squamous Epithelial Cell Urine 0-4 /hpf (0-5); Urine Appearance Clear (CLEAR); Urine Color Yellow (Yellow); Urobilinogen Urine Neg (Negative); WBC Urine 0-4 /hpf (0-5); pH Urine 6 (5-7)
[2023-09-13 13:53] LABS: Add Urine Culture? No; Bacteria Urine TRACE /hpf; Hyaline Casts Urine 0-4 /lpf; Mucus Urine TRACE /hpf
[2023-10-01] VITALS (22 sets, daily range): BP systolic 107–176; BP diastolic 65–93; PULSE 90–137; RESP 16–97; TEMP 36.2–36.5; O2SAT 74–97
--- NOTE | 2023-10-01 06:00 | SC_ITS ---
WS: [id number] EXAMINATION: C-arm FL for Pacemaker ORDER DATE: 10/01/2023 6:00 AM REASON FOR EXAM: Pacemaker implantation COMPARISON: None available. FLUOROSCOPY TIME: 150.9 seconds # OF SPOT FILMS: 1 FINDINGS: Left-sided cardiac pacemaker. Distal end of the pacemaker lead overlies the cardiac silhouette in a position consistent with a righ t ventricular apex. No left pneumothorax. SC/C-arm FL for Pacemaker IMPRESSION: Left-sided pacemaker placement without complication.
--- NOTE | 2023-10-01 06:21 | PM.HP ---
Providers/Chief Complaint Admitting Physician: Dr. Sargent Primary Care Provider: Princess Grande MD Chief Complaint: I44.30 History of Present Illness Yadira Krishnan is a 82 year old female who was originally referred to my service back on August [address] 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 Previous Holter monitoring from June 28 through July 04 revealed episodes of sinus rhythm, sinus bradycardia, junctional rhythm, as well as atrial fibrillation. Sinus pauses up to 6.5 seconds were noted on July 04. During our conversation back on her clinic visit of August 19, we did discuss options for leadless pacemaker implantation versus traditional pacemaker. After conversation as to implant technique and general follow-up, she was uncomfortable with leadless pacemaker and wishes for standard pacemaker implantation. With this understanding, I will refer her back to Dr. Adkins to consider pacemaker implantation though I was contacted that she wished for us to proceed with device implantation. She presents today with her and wishes to proceed with implantation. 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 There was no lymph node invasion. She is followed by oncology service here at [facility]. Review of Systems Const: Denies: fever(s) or chills Eyes: Denies: change in vision or blurry vision ENMT: Denies: throat pain Card: Reports: edema, swelling of feet/ankles and lightheadedness; Denies: chest pain or syncope Resp: Denies: dyspnea or productive cough GI: Denies: abdominal pain, nausea or vomiting Musc: Reports: extremity swelling and joint pain Neuro: Reports: difficulty walking; Denies: headache(s), numbness in extremities or sensory changes Edgar/Lymph: Reports: easy bleeding Medications/Allergies Home Medications Medication Instructions Recorded Confirmed Last Taken Type prednisolone acetate 1 % eye 1 drp ophthalmic (eye) DAILY 10/28/20 10/01/23 09/30/23 History drops,suspension tramadol 50 mg tablet 50 mg PO BID PRN pain #60 tabs 02/08/23 10/01/23 09/30/23 Rx losartan 50 mg tablet 50 mg PO DAILY 90 days #90 tabs 06/19/23 10/01/23 09/30/23 Rx atorvastatin 10 mg tablet 10 mg PO DAILY #90 tabs 06/25/23 10/01/23 09/30/23 Rx fexofenadine 60 mg tablet (Anat 60 mg PO DAILY 08/20/23 10/01/23 09/30/23 History Allergy) furosemide 20 mg tablet 20 mg PO DAILY PRN swelling 09/13/23 09/28/23 2 Weeks Ago History ~09/14/23 propafenone 150 mg tablet 150 mg PO TID 09/13/23 09/28/23 Unknown History red yeast rice 600 mg capsule 600 mg PO BID 09/13/23 10/01/23 09/30/23 History Allergies Allergy/AdvReac Type Severity Reaction Status Date / Time No Known Allergies Allergy Verified 09/28/23 13:37 PFSH Acute PFSH: Medical History Osteoarthritis Aortic valve stenosis Anxiety Bradycardia by electrocardiogram Hypertension Chronic atrial fibrillation Hypercholesteremia Surgical History Hx of cholecystectomy Family History Father CAD (coronary artery disease) Mother Cancer Lung Grandmother Diabetes Denies family history of Clotting disorder Dementia Hyperlipidemia Psychiatric illness Chronic kidney disease (CKD) Suicide Anesthesia complication Bleeding disorder Lung disease Hypertension Stroke Social History Smoking and tobacco/nicotine status: never used tobacco/nicotine Alcohol intake: never Substance/Drug Use: never Physical Exam Const: COMMON NORMALS: patient oriented x3 and alert ORIENTATION/CONSCIOUSNESS: Yes oriented to person, Yes oriented to place and Yes oriented to time HENMT: COMMON NORMALS: normocephalic HEAD & SCALP: normocephalic Neck/C-Spine: COMMON NORMALS: full ROM, supple, no JVD and No carotid bruits GENERAL: Yes trachea midline CERVICAL SPINE: Yes cervical ROM normal Chest: COMMONS NORMALS: normal inspection of the chest and normal palpation of entire chest wall Resp: COMMON NORMALS: normal respiratory effort, No use of accessory muscles, clear to auscultation bilaterally and percussion normal EFFORT & INSPECTION: Yes able to speak in complete sentences and Yes symmetric chest movement AUSCULTATION: clear to auscultation bilaterally PERCUSSION: percussion normal Cardio: COMMON NORMALS: no JVD, regular rate, regular rhythm, S1 normal heart sound present, S2 normal heart sound present, No gallops present (Cardio), No murmurs present (Cardio) and No rub (Cardio) JUGULAR VENOUS DISTENTION: no JVD RATE: regular rate RHYTHM: regular rhythm HEART SOUNDS: S1 normal heart sound present and S2 normal heart sound present GI: COMMON NORMALS: Normal to inspection, nondistended, normoactive bowel sounds present Extremity: NARRATIVE EXTREMITY EXAM: 1+ pretibial edema Neuro: COMMON NORMALS: patient oriented x3, no focal motor deficits and no sensory deficits noted SENSORIUM/ORIENTATION: Yes alert, Yes oriented to person, Yes oriented to place and Yes oriented to time Data 09/13/23 13:15 09/13/23 13:15 CXR: My impression: Chest x-ray of July 06, 2023 was clear. A&P Assessment and plan (1) Heart block atrioventricular: I again discussed carefully with Ms. Krishnan and her the recommendation for pacemaker implantation. I again confirmed with her that she wishes for standard to lead pacemaker implantation as opposed to leadless pacemaker. Details and risk of the procedure were carefully and frankly discussed. Particular risk discussed including infection, possible infection which might require device explantation, pain, pneumothorax, inability to place the pacemaker, major cardiac perforation resulting in exsanguinating hemorrhage, migration of the leads requiring revision, and need for long-term surveillance. She and her state understanding and wished to proceed. Attestations Medical Necessity Statement*: AV heart block with sinus pauses and intermittent atrial fibrillation Coding Level of Care Code Acute Code for [facility] Diagnoses Heart block atrioventricular I44.30
[2023-10-01] MEDS: sodium chloride 0.9% 1,000 ML 30 ML IV (06:33)
--- NOTE | 2023-10-01 06:52 | P.ANESUD_ITS ---
Pre-Anesthetic Update Pre-Anesthetic Assessment: Date of Surgery/Procedure: 10/01/23 Preop Meenakshi gnosis: Atrioventricular block Proposed Procedure: Operation Date: 10/01/23 07:00 Proposed Procedures p Pacemaker Insertion 70436, I44.30(Not Applicable) - Stephane Sargent MD Any changes to Pre-Anesthetic Assessment?: No Last Intake: Intake Last Liquid Date 09/30/23 Last Liquid Time 22:00 Last Solid Date 09/30/23 Last Solid Time 17:00 Labs Last 48hrs: > 8hrs Vitals: Temperature 97.2 F L 10/01/23 06:08 Temperature Source Temporal Artery S can 10/01/23 06:08 Pulse Rate 133 H 10/01/23 06:08 Respiratory Rate 16 10/01/23 06:08 Blood Pressure 176/79 10/01/23 06:08 Blood Pressure Winter n 111 10/01/23 06:08 Pulse Oximetry 91 10/01/23 06:08 Oxygen Delivery Me thod Room Air 10/01/23 06:08 Exam: Pre-Anes Outpt Exam: alert, oriented x 3, clear to auscultation bilaterally and regular rate & rhythm Cardiac Studies: Echocardiogram 03/12/22 Sestamibi Stress Test (Cardiology) 04/12 Cardiac Event Monitor 06/26/23 Holter Monitor 06/14/21
[2023-10-01] MEDS: ceFAZolin 2,000 MG in sodium chloride 0.9% (plus) 50 ML 100 MG IV (07:00)
[2023-10-01] MEDS: lidocaine 1% INJ 10 mL (per mL) 20 ML XX (07:34)
[2023-10-01] MEDS: ceFAZolin 1,000 mg SDV 1000 MG IRRIGATION (07:35)
--- NOTE | 2023-10-01 08:46 | PM.OP ---
Operative Report Date of procedure: October 01, 2023 Pre-op diagnosis: AV heart block with sinus pauses/intermittent atrial fibrillation Post-op diagnosis: same Procedure done: Dual-lead pacemaker implantation Implants: Pacemaker generator Atrial and ventricular leads Pathology: none sent Surgeon: Stephane Sargent MD Anesthesia: MAC and Local Estimated blood loss (mL): 10 Complications: None: Postprocedure chest x-ray pending Condition: stable Disposition: PACU Brief History: Ms. Jay is an 82-year-old female referred to our service by Dr. Adkins to consider leadless pacemaker implantation. She has documented episodes of profound bradycardia with sinus pauses up to several seconds. After initial consultation, she did not wish to have leadless pacemaker implantation though did wish to proceed with standard lead pacemaker placement. She was referred to Dr. Adkins, however due to scheduling conflicts, she wished for us to proceed with this implantation. Details the risk of the procedure were carefully and frankly discussed. Appropriate consents have been reviewed and signed. Procedure: Procedure: Ms. Krishnan was taken to the OR suite and placed in the supine position over a shoulder roll. She received conscious sedation with continuous anesthesia monitoring by. Her entire chest was sterilely prepped and draped. Appropriate timeout was completed and confirmed by all operative members present. 1% lidocaine was infiltrated in the left subclavicular region. While in Trendelenburg position, utilizing modified seldinger technique, 2 guidewires were placed in the left subclavian vein. This was confirmed in position by fluoroscopy. Next, after infiltration with lidocaine, a subcutaneous pocket was created beginning from the exit point of the guidewire and extending laterally and inferiorly. Cautery was utilized to create the pocket just above the pectoralis musculature. Hemostasis was confirmed. An antibiotic-soaked sponge was placed in the wound. A dilator and tear-away sheath was placed over the first guidewire and advanced under fluoroscopy. Guidewire and dilator were removed. Next using a combination of curved and straight stylettes, the right ventricular lead was placed in position by fluoroscopy. The distal screw was extended. Interrogation was then performed confirming appropriate parameters. The tear-away sheath was then removed and the ventricular lead was sewn to the floor of the subcutaneous pocket. In a similar fashion dilator and tear-away sheath was placed over the 2nd guide wire and advanced under fluoroscopy. Guidewire and dilator were removed. Straight and curved stylettes were used to position the right atrial lead with fluoroscopy. Distal screw was extended. Interrogation was then performed. Patient was noted to be in atrial fibrillation/flutter, therefore capture thresholds cannot be obtained. Tear-away sheath was then removed. Atrial lead was secured to the floor of the subcutaneous pocket. Pocket was irrigated with antibiotic solution and hemostasis again confirmed. Pacing generator was brought into the field, and after confirmation of hemostasis in the subcutaneous pocket, the leads were connected to the generator with appropriate capture of the ventricular lead, with sensing and impedance noted on the atrial lead. Patient was in atrial fibrillation/flutter at the time of implantation. The entire system was interrogated by fluoroscopy. Leads and generator were secured in the pocket. Sponge and needle count was correct. The wound was then closed in 2 layers of 3-0 Vicryl suture. Skin was reapproximated in a subcuticular manner with 4-0 Monocryl suture. A pressure dressing was applied. The left arm was placed in a sling. The patient had equal breath sounds bilaterally. She was then transferred to the PACU, where chest x-ray is currently pending. I did psychosocial rehabilitation counselor with the family at the completion of the procedure. Following are the specifics of this system: Right ventricular lead is 52 cm and model 5076. Serial number [id number] Right atrial lead is 45 cm and is model 5076. Serial number [id number]. Ventricular lead had sensing of 6.5 mV with an impedance of 608 ohms. Capture threshold was 0.7 V Atrial lead had sensing of 1.2 mV with an impedance of 893 ohms. Capture threshold could not be obtained as patient's rhythm was A-fib/flutter at the time of implantation. [employer] generator: Model # [id number] Serial #[id number]
--- NOTE | 2023-10-01 08:57 | XR_ITS ---
WS: [id number] XR chest 2V insp/exp [id number] REASON FOR EXAM: post op pacemaker FINDINGS: Cardiac device in place over the left chest with trans left subclavian vein leads to the right atrium and right ventricular apex. Cardiomegaly. Central pulmonary vein congestion. No acute pulmonary parenchymal pleural abnormality. No pneumothorax. XR/XR chest 1V portable [id number] IMPRESSION: Cardiomegaly with findings suggesting early congestive heart failur e. No pneumothorax.
--- NOTE | 2023-10-01 09:10 | ANE.PACU2 ---
Inpatient post-anesthesia follow up: Airway intact: Yes Vital signs: Temperature 97.6 F Pulse Rate 110 Respiratory Rate 39 Blood Pressure 129/92 Pulse Oximetry 92 Oxygen Delivery Me thod Room Air Oxygen Flow Rate Fraction of Inspir ed Oxygen Hydration adequate: Yes Nausea and vomiting: No Pain level: 1 Mental status: Baseline
[2023-10-01] MEDS: propafenone 150 mg Tablet PO ×3 (10:00→21:42)
[2023-10-01] MEDS: pantoprazole DR 40 mg Tablet PO (10:00)
--- NOTE | 2023-10-01 10:03 | PC.NURSE ---
Patient reports taking her losartan and prednisolone eye drop daily at bedtime.
[2023-10-01] MEDS: HYDROcodone-acetaminophen 5-325 mg Tablet 1 TAB PO ×2 (12:00→15:45)
[2023-10-01] MEDS: ceFAZolin 1,000 MG in sodium chloride 0.9% (plus) 50 ML 100 MG IV ×2 (15:58→22:29)
[2023-10-01] MEDS: prednisoLONE 1% Op Susp 5 mL Btl 1 DROP EYE-RIGHT (21:42)
[2023-10-01] MEDS: losartan 50 mg Tablet PO (21:43)
[2023-10-02] VITALS: BP 120/73; PULSE 114; RESP 30; TEMP 37.3; O2SAT 94
[2023-10-02] MEDS: HYDROcodone-acetaminophen 5-325 mg Tablet 1 TAB PO (00:11)
[2023-10-02] MEDS: TRAMadol 50 mg Tablet PO (01:09)
[2023-10-02 04:00] VITALS: BP 129/59; PULSE 120; RESP 20; TEMP 36.9; O2SAT 90
[2023-10-02 06:00] VITALS: PULSE 122
--- NOTE | 2023-10-02 06:11 | P.DS_ITS ---
Discharge Providers Date of Admission: October 01, 2023 Date of Discharge: October 02, 2023 Attending Provider at Admission: Dr. Sargent Attending Provider at Discharge: Stephane Sargent MD Primary Care Provider: Princess Grande MD Diagnoses at Discharge Discharge Diagnosis (1) Heart block atrioventricular: Details from hospital stay: Ms. Krishnan is an 82-year-old female referred to our service for pacemaker implantation. She has a history for intermittent atrial fibrillation. Initial consultation was to consider leadless pacemaker though after discussion, she wished to proceed with a standard pacemaker implantation. Due to her history of intermittent atrial fibrillation with periods of sinus rhythm, we recommended to lead system. She and her were in agreement. She was electively admitted on September 30 and underwent to lead pacemaker implantation. Postoperatively, she is convalesced on the cardiac stepdown unit. Postop discomfort but under good control. She does have moderate saida- incisional ecchymosis though no substantial fluid collection. Chest x-ray reveals no evidence for pneumothorax and appropriately placement. Interrogation of the system this morning was felt to be appropriate. She is tolerating a diet well. She will be discharged to home today with activity restrictions and scheduled follow-up at [facility] pacemaker clinic in 1 week. At the time of discharge, she is in stable condition. Status: Acute Reason for Visit Reason for Visit: I44.30 Physical Exam Const: COMMON NORMALS: no acute distress, patient oriented x3, alert and well nourished HENMT: COMMON NORMALS: normocephalic, atraumatic, hearing grossly normal bilaterally, external ears normal and Normal external nose present HEAD & SCALP: normocephalic and atraumatic NOSE: Normal external nose present EXTERNAL EAR: Yes external ears normal Chest: OTHER: There is modest ecchymosis around the incision site. No substantial fluid collection or swelling at the site itself. Minimal tenderness. No erythema or evidence for drainage. Surgical dressing was removed and recovered with a sterile dressing. Resp: COMMON NORMALS: normal respiratory effort and clear to auscultation bilaterally AUSCULTATION: clear to auscultation bilaterally Cardio: OTHER: A irregular rhythm with known atrial fibrillation. Intermittent tachycardia. GI: COMMON NORMALS: Normal to inspection, nondistended, normoactive bowel sounds present Extremity: COMMON NORMALS: no clubbing, cyanosis or edema Neuro: COMMON NORMALS: patient oriented x3 SENSORIUM/ORIENTATION: Yes alert Discharge Data Studies Completed and Pending Completed Studies During Hospitalization Category Date Time Status XR chest 1V portable [id number] Routine Exams 10/01/23 08:57 Completed Pending at discharge Category Date Time Status C-arm FL for Pacemaker Routine Exams 10/01/23 06:00 Stop Req Radiology Impressions Chest X-Ray 10/01/23 08:57 IMPRESSION: Cardiomegaly with findings suggesting early congestive heart failure. No pneumothorax. Laboratory Results WBC 7.45 10^3/uL (3.29-11.43) 09/13/23 13:15 RBC 3.93 10^6/uL (3.85-5.65) 09/13/23 13:15 Hgb 12.60 g/dL (11.27-16.99) 09/13/23 13:15 Hct 40.5 % (36-47) 09/13/23 13:15 MCV 103.1 fl (85-98) H 09/13/23 13:15 MCH 32.1 pg (27-33) 09/13/23 13:15 MCHC 31.1 g/dL (30-55) 09/13/23 13:15 RDW 13.9 % (12.1-15.1) 09/13/23 13:15 Plt Count 176 10^3/cmm (157-399) 09/13/23 13:15 MPV 9.8 fL (7.4-10.4) 09/13/23 13:15 Neut % (Auto) 53.8 % 09/13/23 13:15 Lymph % (Auto) 32.6 % 09/13/23 13:15 Smyth % (Auto) 7.4 % 09/13/23 13:15 Eos % (Auto) 5.5 % 09/13/23 13:15 Baso % (Auto) 0.4 % 09/13/23 13:15 Neut # (Auto) 4.01 10^3/uL (1.8-7.7) 09/13/23 13:15 Lymph # (Auto) 2.4 10^3/uL (0.8-4.8) 09/13/23 13:15 Smyth # (Auto) 0.6 10^3/uL (0.2-0.9) 09/13/23 13:15 Eos # (Auto) 0.4 10^3/uL (0.0-0.8) 09/13/23 13:15 Baso # (Auto) 0.0 10^3/uL (0.0-0.1) 09/13/23 13:15 Nucleated RBC % (auto) 0 % 09/13/23 13:15 Nucleated RBCs # 0.0 /100WBC 09/13/23 13:15 Sodium 139 mmol/L (136-145) 09/13/23 13:15 Potassium 3.6 mmol/L (3.5-5.1) 09/13/23 13:15 Chloride 99 mmol/L (98-107) 09/13/23 13:15 Carbon Dioxide 30 mmol/L (22-29) H 09/13/23 13:15 Anion Gap 13.6 (5-19) 09/13/23 13:15 BUN 15 mg/dL (8-23) 09/13/23 13:15 Creatinine 0.8 mg/dL (0.5-0.9) 09/13/23 13:15 GFR Calculation Not Reportable 09/13/23 13:15 Glucose 106 mg/dL (65-115) 09/13/23 13:15 Calculated Osmolality 289 mOsm/kg (285-295) 09/13/23 13:15 Calcium 9.4 mg/dL (8.5-10.5) 09/13/23 13:15 Urine Color Yellow (Yellow) 09/13/23 13:15 Urine Appearance Clear (CLEAR) 09/13/23 13:15 Urine pH 6 (5-7) 09/13/23 13:15 Ur Specific Walton 1.010 (1.005-1.030) 09/13/23 13:15 Urine Protein Neg (Negative) 09/13/23 13:15 Urine Glucose (UA) Norm (Normal) 09/13/23 13:15 Urine Ketones Negative (Negative) 09/13/23 13:15 Urine Blood Neg (Negative) 09/13/23 13:15 Urine Nitrate Negative (Negative) 09/13/23 13:15 Urine Bilirubin Neg (Negative) 09/13/23 13:15 Urine Urobilinogen Neg mg/dL (Negative) 09/13/23 13:15 Ur Leukocyte Esterase 1+ (Negative) H 09/13/23 13:15 Urine RBC 0-4 /hpf (0-2) H 09/13/23 13:15 Urine WBC 0-4 /hpf (0-5) H 09/13/23 13:15 Ur Squamous Epith Cells 0-4 /hpf (0-5) H 09/13/23 13:15 Amorphous Sediment Not Reportable 09/13/23 13:15 Urine Bacteria Trace /hpf (NONE) 09/13/23 13:15 Hyaline Casts 0-4 /lpf H 09/13/23 13:15 Urine Mucus Trace /hpf 09/13/23 13:15 Vitals Last Vital Signs Temp 98.4 F 10/02/23 04:00 Pulse 120 H 10/02/23 04:00 Resp 20 H 10/02/23 04:00 BP 129/59 10/02/23 04:00 Pulse Ox 90 10/02/23 04:00 O2 Del Method Room Air 10/02/23 04:00 Discharge Plan Discharge Patient Disposition: Home Condition: Stable Prescriptions: New sulfamethoxazole-trimethoprim [Bactrim DS] 800-160 mg tablet 1 tab PO BID Qty: 6 0RF Continued fexofenadine [Anat Allergy] 60 mg tablet 60 mg PO DAILY Rx Instructions: INSTEAD OF ZYRTEC FOR DRAINAGE tramadol 50 mg tablet 50 mg PO BID PRN (Reason: pain) Qty: 60 3RF losartan 50 mg tablet 50 mg PO DAILY 90 Days Qty: 90 2RF Patient Comments: takes at bedtime atorvastatin 10 mg tablet 10 mg PO DAILY Qty: 90 1RF Patient Comments: Patient states she is not taking this medication 09/28/23 prednisolone acetate 1 % drops,suspension 1 drp ophthalmic (eye) BEDTIME Rx Instructions: USE IN RIGHT EYE DAILY red yeast rice 600 mg Capsule 600 mg PO BID Rx Instructions: give with meal/snack propafenone 150 mg tablet 150 mg PO TID Patient Comments: Patient states she is not taking this medication 09/28/23 Rx Instructions: TAKE 1 TABLET BY MOUTH THREE TIMES DAILY furosemide 20 mg tablet 20 mg PO BID PRN (Reason: swelling) Discharge Orders: Discharge Order (Routine); Ordered 10/02/23 Ordered By: Stephane Sargent Referrals: [facility] [Provider Group] - 1 week (Pacemaker clinic) Discharge Diet: Usual diet Discharge Activity: Limit activity as instructed Patient Instructions: Pacemaker (DC), Post Pacemaker - Sargent, Pacemaker Activity Restrictions/Additional Instructions: May remove bandage in 2 days May begin daily showers in 3 days Dry incision carefully after showers. May re-cover if desired to prevent irritation from clothing. No swimming or tub baths x 2 weeks No ointments on incision Report drainage, redness, heat, fever, increased pain, or swelling to clinic Do not raise left hand above eye level for 2 weeks No heavy lifting or pulling greater than 5 pounds x 2 weeks Discharge Attestations Time Spent in Discharge Care*: less than 30 min Specific Discharge Activities: educating patient, educating and/or supporting family/caregiver, discussing with counter caser/social workers/dc planners and evaluating patient/reviewing data Status at Discharge: Cognitive status at discharge: cognitively intact , Behavioral status at discharge: cooperative , Functional status at discharge: other assisted ambulation , Overall status at discharge: patient is back to baseline Quality Metrics Clinical Quality Measures [ No reported AMI, CVA or VTE this stay] Coding Level of Care Code Acute Code for [facility] Diagnoses Heart block atrioventricular I44.30
[2023-10-02 08:01] VITALS: BP 130/63; PULSE 123; RESP 18; TEMP 37.1; O2SAT 91
[2023-10-02] MEDS: propafenone 150 mg Tablet PO (08:49)
[2023-10-02] MEDS: pantoprazole DR 40 mg Tablet PO (08:50)
[2023-10-02] MEDS: ceFAZolin 1,000 MG in sodium chloride 0.9% (plus) 50 ML 100 MG IV (08:50)
[2023-10-02] MEDS: atorvastatin 40 mg Tablet PO (08:50)
[2023-10-02 10:07] VITALS: BP 130/63; PULSE 123; RESP 18; TEMP 37.1; O2SAT 91
--- NOTE | 2023-10-02 10:46 | PC.NURSE ---
Discharge Note Patient discharged to [home] via [w/c to POV] accompanied by [her spouse]. Discharge instructions reviewed with patient and/or licensing representative. Mobile pharmacy medications and/or prescriptions provided. Belongings/home medications returned.
== END 2023-10-02 10:47 | disposition home or self-care (01) ==
LOC: OR 06:01 → CSU 10-02 06:03
PROVIDERS: PCP Family Medicine; Visit Provider Thoracic Surgery (Cardiothoracic Vascular Surgery)
PROC: (CPT 33208; principal; 2023-10-01 07:00)
DX: I44.30 Unspecified atrioventricular block (principal); I48.20 Chronic atrial fibrillation, unspecified; I49.5 Sick sinus syndrome; I10 Essential (primary) hypertension; E66.01 Morbid (severe) obesity due to excess calories; Z68.41 Body mass index [BMI] 40.0-44.9, adult; F41.9 Anxiety disorder, unspecified; E78.00 Pure hypercholesterolemia, unspecified
CPT/HCPCS: 33208; 71045; 71046; 76000; 80048; 81001; 85025; C1779; C1786; J0690; J2704; J3010; J7030

== ENCOUNTER 2023-10-03 11:27 | Inpatient (IN) | payer MEDICARE, OTHER, SELFPAY ==
[2023-10-03] VITALS (10 sets, daily range): BP systolic 119–165; BP diastolic 82–113; PULSE 121–130; RESP 18–20; TEMP 36.6–37.3; O2SAT 92–95; BMI 42.0
--- NOTE | 2023-10-03 11:37 | ECG_ITS ---
[facility] Test Date: 2023-10-03 Pat Name: Yadira Krishnan Department: Room: Gender: Female Social Work Coordinator: : 1940 Requested By: Quiana Grimes Order Number: [id number] Heath MD: Marc Greer M.D. Measurements Intervals [place] Rate: 121 P: 126 [place]: 235 QRS: 256 QRSD: 158 T: 67 QT: 376 QTc: 534 Interpretive Statements ELECTRONIC VENTRICULAR PACEMAKER Compared to ECG 07/06/2023 21:03:31 Sinus bradycardia no longer present Short [place] interval no longer present ST (T wave) deviation no longer present Electronically Signed On 10-03-2023 18:14:38 CDT by Marc Greer M.D. [email or web address]
--- NOTE | 2023-10-03 12:18 | ED_ITS ---
HPI - Arrhythmia/Palpitations 2 General: Chief Complaint: Arrhythmia/Palpitations Stated Complaint: pacemaker put in 09/30, elavated HR Time Seen by Provider: 10/03/23 11:49 Source: patient and family Mode of arrival: ambulatory Limitations: no limitations History of Present Illness: Patient is here because her heart rate is out of this world. She states she had a pacemaker placed on 30 September and over the 2 to 3 days she has noted sensation of increased heart rate. She denies any chest pain or shortness of breath. She denies any known history of coronary artery disease or congestive heart failure. MD complaint: rapid heart beat Duration: constant Associated symptoms: Reports no associated symptoms; Deny anxiety, nausea, pre-syncope, syncope or vomiting Review of Systems 2 Const: Denies: fever(s) or chills ENMT: Denies: throat pain, odynophagia, nasal discharge or nasal congestion Card: Reports: palpitations; Denies: chest pain, syncope or pre-syncope Resp: Denies: dyspnea, productive cough or non-productive cough GI: Denies: abdominal pain, nausea or vomiting : Denies: flank pain, difficulty voiding or dysuria Musc: Denies: neck pain, back pain or extremity pain Skin/Breast: Denies: rash Neuro: Denies: headache(s), numbness in extremities or weakness in extremities Psych: Denies: anxiety or depression Edgar/Lymph: Denies: easy bruising or easy bleeding PFSH ED 2 PFSH: Medical History Osteoarthritis Aortic valve stenosis Anxiety Bradycardia by electrocardiogram Hypertension Chronic atrial fibrillation Hypercholesteremia Surgical History Hx of cholecystectomy Family History Father CAD (coronary artery disease) Mother Cancer Lung Grandmother Diabetes Denies family history of Clotting disorder Dementia Hyperlipidemia Psychiatric illness Chronic kidney disease (CKD) Suicide Anesthesia complication Bleeding disorder Lung disease Hypertension Stroke Social History Smoking and tobacco/nicotine status: never used tobacco/nicotine Alcohol intake: never Substance/Drug Use: never Physical Exam 2 Narrative: EXAM NARRATIVE: She appears to be comfortable in no acute distress answers questions appropriately. Const: COMMON NORMALS: no acute distress and patient oriented x3 GENERAL APPEARANCE: cooperative and comfortable NUTRITIONAL APPEARANCE: obese HENMT: COMMON NORMALS: normocephalic, Normal nasal mucous membranes and turbinates present and moist oral mucous membranes HEAD & SCALP: n ormocephalic NOSE: Normal nasal mucous membranes and turbinates present Eye: COMMON NORMALS: Equal, round and reactive pupils present and EOMs intact bilaterally PUPIL: Yes Equal, round and reactive pupils present Neck/C-Spine: COMMON NORMALS: full ROM, no lymphadenopathy, Thyroid normal and No carotid bruits THYROID: Thyroid normal Chest: COMMONS NORMALS: normal inspection of the chest OTHER: She has dressing over an implanted medical radiation tech in her left upper chest. No drainage or redness. Resp: COMMON NORMALS: normal respiratory effort, No use of accessory muscles and clear to auscultation bilaterally AUSCULTATION: clear to auscultation bilaterally Cardio: COMMON NORMALS: regular rhythm, No murmurs present (Cardio) and Peripheral pulses 2+ throughout RATE: tachycardic RHYTHM: regular rhythm PERIPHERAL PULSES: Peripheral pulses 2+ throughout GI: COMMON NORMALS: Normal to inspection, nondistended, normoactive bowel sounds present and Soft to palpation PALPATION: Yes Soft to palpation : COMMON NORMALS: Yes no CVA tenderness BLADDER/KIDNEY EXAM: Yes no CVA tenderness Back/Pelvis: COMMON NORMALS: no CVA tenderness, thoracic and lumbar spine normal to inspection and straight leg raise negative bilaterally Extremity: COMMON NORMALS: normal to inspection, full ROM, no calf tenderness and no pedal edema Neuro: COMMON NORMALS: patient oriented x3, moves all extremities, no focal motor deficits and no sensory deficits noted Psych: COMMON NORMALS: mental status grossly normal Skin: COMMON NORMALS: no rashes or lesions noted GENERAL SKIN EXAM: no rashes or lesions noted Course 2 Reevaluation(s): Reevaluation #1: The pacer interrogation was reviewed and it appears that she may be an underlying a flutter with attempt by the pacemaker to overdrive her rhythm. Recommendation from cardiology is to use calcium channel robert to to achieve rate control and then if that improves her symptoms. On echo from 2021 she has had preserved ejection fraction so we will go ahead and use Cardizem. Time: 13:02 Reevaluation #2: Despite 2 boluses of Cardizem and a Cardizem infusion the patient's rate still is paced in the 1 20-1 22 range. I really engaged cardiology who also reviewed current status and treatment and recommended placing in observation and they will see her in the hospital later this afternoon. Discussed with hospitalist who agreed to see the patient. Time: 14:27 Consultations: Consultation #1: Discussed with Dr. Edge java j2ee software engineer who recommends placing her obs and getting a pacemaker interrogation. Time: 12:28 Consultation #2: Hospitalist service was consulted for admission and they agreed to see the patient. Time: 14:31 Vital Signs: Vital signs: Vital Signs Temperature 99.1 F 10/03/23 11:35 Pulse Rate 124 H 10/03/23 14:09 Blood Pressure 119/88 10/03/23 14:09 Pulse Oximetry 92 10/03/23 14:09 Oxygen Delivery Me thod Room Air 10/03/23 14:09 MDM - Arrhythmia/Palpitations Medical Decision Making This patient presented to the emergency emergency department with rapid heart rate sensation. There was no concomitant chest pain shortness of breath or other systemic symptoms. She had a pacemaker placed on 30 September at this facility. Initial EKG showed a paced rhythm in the 120 ventricular rate without any other changes. The rate was steady without any variation. Cardiology was consulted who recommended rate control for what they posited was a underlying a flutter with attempt at the pacemaker to overdrive and controlled his rate. Diltiazem bolus and infusion were instituted which had no effect upon her heart rate. Basic chemistries were obtained which were normal chest x-ray revealed cardiomegaly without any acute changes. Cardiology then was reengaged and they recommended placing in observation and they will reevaluate later this afternoon. The patient is stable at this time not suggestive of ACS or other worrisome issues however biomarkers are pending at the time of this dictation. Medical Records I reviewed the patient's medical records. U pacemaker placed on 30 September uneventfully Lab Data I reviewed the patient's lab results. 10/03/23 12:56 Radiology Impressions Chest X-Ray 10/03/23 13:03 IMPRESSION: Cardiomegaly. No acute abnormality identified. Laboratory Results Sodium 139 mmol/L (136-145) 10/03/23 12:56 Potassium 4.3 mmol/L (3.5-5.1) 10/03/23 12:56 Chloride 102 mmol/L (98-107) 10/03/23 12:56 Carbon Dioxide 28 mmol/L (22-29) 10/03/23 12:56 Anion Gap 13.3 (5-19) 10/03/23 12:56 BUN 11 mg/dL (8-23) 10/03/23 12:56 Creatinine 0.8 mg/dL (0.5-0.9) 10/03/23 12:56 GFR Calculation Not Reportable 10/03/23 12:56 Glucose 98 mg/dL (65-115) 10/03/23 12:56 Calculated Osmolality 287 mOsm/kg (285-295) 10/03/23 12:56 Calcium 9.2 mg/dL (8.5-10.5) 10/03/23 12:56 Magnesium 1.9 mg/dL (1.7-2.3) 10/03/23 12:56 XR interpretation done by ED provider, pending radiology final review EKG Data EKG 1: Interpretation: She has a ventricular rate of 121 bpm. Is a paced rhythm with a left bundle branch block pattern. No discordant or concordant findings to suggest ischemia at this time Other EKG comments: Chest X-Ray 10/03/23 13:03 IMPRESSION: Cardiomegaly. No acute abnormality identified. Discharge Plan Discharge Patient Disposition: Placed in Observation Clinical Impression: Pacemaker complications, Atrial flutter Condition: Stable Prescriptions: No Action fexofenadine [Anat Allergy] 60 mg tablet 60 mg PO DAILY tramadol 50 mg tablet 50 mg PO BID PRN (Reason: pain) Qty: 60 3RF losartan 50 mg tablet 50 mg PO DAILY 90 Days Qty: 90 2RF Patient Comments: takes at bedtime atorvastatin 10 mg tablet 10 mg PO DAILY Qty: 90 1RF Patient Comments: Patient states she is not taking this medication 09/28/23 prednisolone acetate 1 % drops,suspension 1 drp ophthalmic (eye) BEDTIME red yeast rice 600 mg Capsule 600 mg PO BID Rx Instructions: give with meal/snack propafenone 150 mg tablet 150 mg PO TID Patient Comments: Patient states she is not taking this medication 09/28/23 furosemide 20 mg tablet 20 mg PO BID PRN (Reason: swelling) sulfamethoxazole-trimethoprim [Bactrim DS] 800-160 mg tablet 1 tab PO BID Qty: 6 0RF montelukast 10 mg tablet 10 mg PO DAILY Referrals: Princess Grande MD [Primary Care Provider] - Coding Level of Care Code ED Mental Health Clinician for Chg Fwrachid
--- NOTE | 2023-10-03 13:03 | XR_ITS ---
WS: [id number] XR chest 1V portable [id number] REASON FOR EXAM: rapid heart rate FINDINGS: Cardiac device over the left chest with trans left subclavian vein leads to the right atrium and righ t ventricular apex. Significant cardiomegaly. Moderate tortuosity of the thoracic aorta. No acute pulmonary parenchymal or pleural abnormality. Mild dextroscoliosis of the thoracic spine. Mild to moderate degenerative spondylosis in the mid and lower thoracic spine. XR/XR chest 1V portable [id number] IMPRESSION: Cardiomegaly. No acute abnormality identified.
[2023-10-03 13:23] LABS: Anion Gap 13.3 (5-19); Blood Urea Nitrogen 11 mg/dL (8-23); Calcium 9.2 mg/dL (8.5-10.5); Carbon Dioxide 28 mmol/L (22-29); Chloride 102 mmol/L (98-107); Creatinine Clr Calc Pharmacy 59.3268; Glucose 98 mg/dL (65-115); Magnesium 1.9 mg/dL (1.7-2.3); Osmolality Calculated 287 mOsm/kg (285-295); Potassium 4.3 mmol/L (3.5-5.1); Sodium 139 mmol/L (136-145)
[2023-10-03] MEDS: dilTIAZem 5 mg/mL SDV 5 mL 10 MG IVP ×2 (13:35→14:09)
[2023-10-03] MEDS: dilTIAZem 100 MG in sodium chloride 0.9% (add-van) 100 ML IV (13:38)
--- NOTE | 2023-10-03 14:45 | PC.NURSE ---
pt HR 124, Dr. Crespo notified, per Dr. Crespo to leave Cardizem rate at 7.5mg/hr
[2023-10-03 14:46] LABS: Basophils % 0.4 %; Eosinophils # 0.3 10^3/uL (0.0-0.8); Eosinophils % 6.1 %; Hematocrit 39.1 % (36-47); Lymphocytes # 1.7 10^3/uL (0.8-4.8); Lymphocytes % 31.4 %; Mean Corpuscular HGB Conc 30.9 g/dL (30-55); Mean Corpuscular Volume 103.4 fl (85-98); Mean Platelet Volume 10.3 fL (7.4-10.4); Monocytes # 0.5 10^3/uL (0.2-0.9); Monocytes % 9.8 %; Neutrophils # 2.82 10^3/uL (1.8-7.7); Neutrophils % 51.9 %; Nucleated Red Blood Cells % 0 %; Platelet Count 180 10^3/cmm (157-399); Red Blood Count 3.78 10^6/uL (3.85-5.65); Red Cell Distribution Width 13.4 % (12.1-15.1); White Blood Count 5.42 10^3/uL (3.29-11.43)
--- NOTE | 2023-10-03 14:50 | ECG_ITS ---
[facility] Test Date: 2023-10-03 Pat Name: Yadira Krishnan Department: Room: 111 Gender: Female Web Content Producer: : 1940 Requested By: Heladio Crespo Order Number: [id number] Heath MD: Marc Greer M.D. Measurements Intervals [place] Rate: 123 P: 116 ID: 230 QRS: 267 QRSD: 153 T: 82 QT: 366 QTc: 526 Interpretive Statements ELECTRONIC VENTRICULAR PACEMAKER Compared to ECG 10/03/2023 11:37:40 No significant changes Electronically Signed On 10-03-2023 18:14:11 CDT by Marc Greer M.D. [id number]
[2023-10-03 14:57] LABS: Troponin(5th) Baseline 39 ng/L (0-10)
--- NOTE | 2023-10-03 15:47 | P.HP_ITS ---
Providers/Chief Complaint 2 Admitting Physician: Brii Alvarez MD Primary Care Provider: Princess Grande MD Chief Complaint: pacemaker put in 09/30, elavated HR History of Present Illness Yadira Krishnan is a 82 year old female with past medical history of hypertension, hyperlipidemia, bradycardia/sick sinus syndrome, anxiety, mucinous adenocarcinoma of colon s/p hemicolectomy osteoarthritis presented with complaint of heart rate of 192 last night. She denies any complaints of chest pain/discomfort, shortness of breath, dizziness or syncope, nausea or vomiting. She had a Holter monitor placed from June 28 through July 04 which revealed episodes of sinus rhythm, sinus bradycardia, junctional rhythm as well as atrial fibrillation. Bradycardia sinus pause was 6.5 seconds while asleep. As a result she had a standard pacemaker implantation done on 10/01/2023. She was doing well and was discharged home on 10/02/2023. As a routine she checked her blood pressure before going to bed last night and found out that the heart rate was 192. She was prescribed p.o. metoprolol at home for as needed tachycardia , which she took last night but there was no change .Hence came into ER for further evaluation. [facility] specifics- Right ventricular lead is 52 cm and model 5076. Serial number [id number] Right atrial lead is 45 cm and is model 5076. Serial number [id number]. Medtronic generator: Model # [id number] Serial #[id number] In ER she had a interrogation of the pacemaker which was functioning normal. Her heart rate was found to be in 120s and did not respond to 2 doses of 10 mg IV Cardizem, hence started on Cardizem drip for rate control. Cardiology consulted in ER EKG showed paced rhythm at 121 bpm. Chest x-ray showed cardiomegaly ,no other acute abnormalities First set of troponins was 39 Last stress test in 04/20 was negative ECHO 03/21- Normal left ventricular size, systolic function and wall thickness, with no regional wall motion abnormalities. LV ejection fraction around 66%. Moderate biatrial enlargement. Thickened mitral valve. Mild aortic valve stenosis, Mild tricuspid valve regurgitation. Moderate pulmonary hypertension. Estimated pulmonary artery peak systolic pressure 67 mmHg Review of Systems 2 General: Reports: 10 or more systems reviewed and unremarkable except in HPI and below Medications/Allergies Home Medications Medication Instructions Recorded Confirmed Last Taken Type prednisolone acetate 1 % eye 1 drp ophthalmic (eye) BEDTIME 10/28/20 10/03/23 10/02/23 History drops,suspension tramadol 50 mg tablet 50 mg PO BID PRN pain #60 tabs 02/08/23 10/03/23 09/30/23 Rx losartan 50 mg tablet 50 mg PO DAILY 90 days #90 tabs 06/19/23 10/03/23 10/02/23 Rx atorvastatin 10 mg tablet 10 mg PO DAILY #90 tabs 06/25/23 10/03/23 09/30/23 Rx fexofenadine 60 mg tablet (Anat 60 mg PO DAILY 08/20/23 10/03/23 10/02/23 History Allergy) propafenone 150 mg tablet 150 mg PO TID 09/13/23 10/03/23 10/02/23 History red yeast rice 600 mg capsule 600 mg PO BID 09/13/23 10/03/23 10/02/23 History furosemide 20 mg tablet 20 mg PO BID PRN swelling 10/01/23 10/03/23 Unknown History sulfamethoxazole 800 1 tab PO BID #6 tabs 10/02/23 10/03/23 Unknown Rx mg-trimethoprim 160 mg tablet (Bactrim DS) montelukast 10 mg tablet 10 mg PO DAILY 10/03/23 10/03/23 10/02/23 History Allergies Allergy/AdvReac Type Severity Reaction Status Date / Time No Known Allergies Allergy Verified 10/03/23 11:47 PFSH Acute 2 PFSH: Medical History Osteoarthritis Aortic valve stenosis Anxiety Bradycardia by electrocardiogram Hypertension Chronic atrial fibrillation Hypercholesteremia Surgical History Hx of cholecystectomy Family History Father CAD (coronary artery disease) Mother Cancer Lung Grandmother Diabetes Denies family history of Clotting disorder Dementia Hyperlipidemia Psychiatric illness Chronic kidney disease (CKD) Suicide Anesthesia complication Bleeding disorder Lung disease Hypertension Stroke Social History Smoking and tobacco/nicotine status: never used tobacco/nicotine Alcohol intake: never Substance/Drug Use: never Vitals/I&O/Wt Last Vital Signs Temp 99.1 F 10/03/23 11:35 Pulse 124 H 10/03/23 15:17 BP 119/88 10/03/23 15:17 Pulse Ox 92 10/03/23 15:17 O2 Del Method Room Air 10/03/23 14:09 10/03/23 10/03/23 10/03/23 06:59 14:59 22:59 Intake Total 2.25 / 2.25 Balance 2.25 / 2.25 Weight last 48 hrs Weight 104.326 kg Physical Exam 2 Narrative: She is alert awake oriented x 3, not in acute distress Chest clear to auscultation bilaterally, pacemaker present. Cardiovascular normal heart sounds, irregular rhythm present Abdomen NAD Extremities no edema present bilateral lower extremities Data 10/03/23 12:56 10/03/23 12:56 A&P Assessment and plan (1) Atrial flutter with rapid ventricular response: Plan 82 year old female with past medical history of hypertension, hyperlipidemia, bradycardia/sick sinus syndrome, anxiety, mucinous adenocarcinoma of colon s/p hemicolectomy osteoarthritis presented with complaint of heart rate of 192 last night, was asymptomatic and on arrival in ER found to be in A flutter with RVR. Admit to CSU with continuous telemetry monitoring Labs reviewed and acceptable Continue Cardizem drip for now, hold propafenone for now. Follow-up cardiology. Hyperlipidemia-resume home medication atorvastatin 10 mg daily Hypertension-hold home medication losartan and Lasix since patient is on Cardizem drip Continue home medication p.o. Bactrim for prophylaxis post pacemaker implantation. Attestations 2 Medical Necessity Statement*: She needs continued hospitalization crossing 2 midnights for management of atrial flutter with IV Cardizem drip , pacemaker evaluation and cardiology consultation Time Spent in Patient Care: 35 minutes Coding Level of Care Code Acute Code for [facility] Fwd Diagnoses Atrial flutter with rapid ventricular response I48.92 Time Spent (min) 35
[2023-10-03] MEDS: sulfamethoxazole-trimeth DS 160-800 mg Tablet 1 TAB PO (17:39)
[2023-10-03] MEDS: heparin 5,000 unit/mL INJ 1 mL 5000 UNIT SUBCUT (17:40)
--- NOTE | 2023-10-03 17:53 | P.CONIM_ITS ---
Providers/Reason For Consult 2 Consulting Physician/Specialty*: Marc Greer MD/ Cardiology Reason for Consult*: Tachycardia Requesting Physician: Dr Crespo Attending Physician: Brii Alvarez MD Primary Care Provider: Princess Grande MD History of Present Illness History of Present Illness Yadira Krishnan is a 82 year old female with past medical history of atrial fibrillation, GI bleed not on anticoagulation who has a pacemaker presented to the hospital with fast heart rate. She says she does not feel palpitations a lot. Not having shortness of breath or chest pain. Heart rate is at 120 bpm. Pacemaker is tracking. Has been started on Cardizem. Review of Systems 2 Const: Denies: fever(s) or chills ENMT: Denies: throat pain, odynophagia, nasal discharge or nasal congestion Card: Reports: palpitations; Denies: chest pain, syncope or pre-syncope Resp: Denies: dyspnea, productive cough or non-productive cough GI: Denies: abdominal pain, nausea or vomiting : Denies: flank pain, difficulty voiding or dysuria Musc: Denies: neck pain, back pain or extremity pain Skin/Breast: Denies: rash Neuro: Denies: headache(s), numbness in extremities or weakness in extremities Psych: Denies: anxiety or depression Edgar/Lymph: Denies: easy bruising or easy bleeding Medications/Allergies Home Medications Medication Instructions Recorded Confirmed Last Taken Type prednisolone acetate 1 % eye 1 drp ophthalmic (eye) BEDTIME 10/28/20 10/03/23 10/02/23 History drops,suspension tramadol 50 mg tablet 50 mg PO BID PRN pain #60 tabs 02/08/23 10/03/23 09/30/23 Rx losartan 50 mg tablet 50 mg PO DAILY 90 days #90 tabs 06/19/23 10/03/23 10/02/23 Rx atorvastatin 10 mg tablet 10 mg PO DAILY #90 tabs 06/25/23 10/03/23 09/30/23 Rx fexofenadine 60 mg tablet (Anat 60 mg PO DAILY 08/20/23 10/03/23 10/02/23 History Allergy) propafenone 150 mg tablet 150 mg PO TID 09/13/23 10/03/23 10/02/23 History red yeast rice 600 mg capsule 600 mg PO BID 09/13/23 10/03/23 10/02/23 History furosemide 20 mg tablet 20 mg PO BID PRN swelling 10/01/23 10/03/23 Unknown History sulfamethoxazole 800 1 tab PO BID #6 tabs 10/02/23 10/03/23 Unknown Rx mg-trimethoprim 160 mg tablet (Bactrim DS) montelukast 10 mg tablet 10 mg PO DAILY 10/03/23 10/03/23 10/02/23 History Allergies Allergy/AdvReac Type Severity Reaction Status Date / Time No Known Allergies Allergy Verified 10/03/23 11:47 Current Medications Generic Name Dose Route Start Last Admin Trade Name Freq PRN Reason Stop Dose Admin Heparin Sodium (Porcine) 5,000 unit 10/03/23 17:00 10/03/23 17:40 Heparin 5,000 Unit/Ml Inj 1 Ml SUBCUT 5,000 unit Q8H LAMONT Administration Diltiazem HCl 100 mg/ Sodium 100 mls @ 0 mls/hr 10/03/23 13:15 10/03/23 14:05 Chloride IV 7.5 mg/hr .Q0M LAMONT 7.5 mls/hr Titration Protocol Per Protocol Trimethoprim/Sulfamethoxazole 1 tab 10/03/23 18:00 10/03/23 17:39 Sulfamethoxazole-Trimeth Ds 160-800 Mg Tablet PO 1 tab BID LAMONT Administration Protocol PFSH Acute 2 PFSH: Medical History Osteoarthritis Aortic valve stenosis Anxiety Bradycardia by electrocardiogram Hypertension Chronic atrial fibrillation Hypercholesteremia Surgical History Hx of cholecystectomy Family History Father CAD (coronary artery disease) Mother Cancer Lung Grandmother Diabetes Denies family history of Clotting disorder Dementia Hyperlipidemia Psychiatric illness Chronic kidney disease (CKD) Suicide Anesthesia complication Bleeding disorder Lung disease Hypertension Stroke Social History Smoking and tobacco/nicotine status: never used tobacco/nicotine Alcohol intake: never Substance/Drug Use: never Vitals/I&O/Wt Last Vital Signs Temp 98.6 F 10/03/23 16:07 Pulse 125 H 10/03/23 16:07 Resp 20 H 10/03/23 16:07 BP 127/89 10/03/23 16:07 Pulse Ox 92 10/03/23 16:07 O2 Del Method Room Air 10/03/23 17:24 10/03/23 10/03/23 10/03/23 06:59 14:59 22:59 Intake Total 2.25 / 2.25 Balance 2.25 / 2.25 Weight last 48 hrs Weight 230 lb Weight 230 lb Physical Exam 2 Narrative: GENERAL: Patient is alert, awake and oriented x3. [] NECK: No jugular vein distension. [] HEENT: No cyanosis. No icterus. No pallor. [] HEART: Tachycardia LUNGS: Clear to auscultate bilaterally. [] CENTRAL NERVOUS SYSTEM: Grossly nonfocal. [] EXTREMITIES: Lower extremities with 1+ edema bilaterally. Data 10/04/23 04:06 10/04/23 04:20 A&P Assessment and plan (1) Congestive heart failure: Qualifiers: Heart failure type: other Qualified Code(s): I50.9 - Heart failure, unspecified (2) Aortic valve stenosis: Qualifiers: Cardiac valve disease etiology: nonrheumatic Qualified Code(s): I35.0 - Nonrheumatic aortic (valve) stenosis (3) Atrial flutter with rapid ventricular response: Plan Patient is in A-fib with RVR. Pacemaker is tracking. Continue Cardizem drip. Continue propafenone. Not on anticoagulation secondary to GI bleed history. Tele monitoring Interrogate pacemaker Order echocardiogram Thank you for involving us with care of this patient. Please call with questions. Consult Attestations 2 Medical Necessity Statement: Care expected to cross 2 midnights. Coding Level of Care Code Acute Code for Chg Fwd Diagnoses Other congestive heart failure I50.9 Heart failure type: other Nonrheumatic aortic valve stenosis I35.0 Cardiac valve disease etiology: nonrheumatic Atrial flutter with rapid ventricular response I48.92
--- NOTE | 2023-10-03 18:53 | PC.NURSE ---
Discharge Note Patient discharged to [home] via [w/c to POV] accompanied by [her spouse]. Discharge instructions reviewed with patient and/or termite control service representative. Mobile pharmacy medications and/or prescriptions provided. Belongings/home medications returned.
--- NOTE | 2023-10-03 20:22 | ECG_ITS ---
[facility] Test Date: 2023-10-03 Pat Name: Yadira Krishnan Department: Room: 105 Gender: Female Lead Pharmacy Technician: : [id number] Requested By: Heladio Crespo Order Number: [id number] Heath MD: Marc Greer M.D. Measurements Intervals [place] Rate: 127 P: 170 HI: 219 QRS: 114 QRSD: 146 T: 7 QT: 361 QTc: 526 Interpretive Statements ELECTRONIC VENTRICULAR PACEMAKER Compared to ECG 10/03/2023 14:50:19 ST (T wave) deviation now present Myocardial infarct finding now present Electronically Signed On 10-04-2023 12:24:27 CDT by Marc Greer M.D. [id number]
[2023-10-03 21:58] LABS: Troponin 5 2HR 35.53 ng/L (0-10)
[2023-10-03 21:59] LABS: Troponin 5 2HR Delta -3.47 ABS# (0-10)
[2023-10-04] VITALS (7 sets, daily range): BP systolic 108–154; BP diastolic 62–119; PULSE 67–130; RESP 15–25; TEMP 36.6–36.9; O2SAT 92–99; BMI 42.0
[2023-10-04] MEDS: heparin 5,000 unit/mL INJ 1 mL 5000 UNIT SUBCUT ×2 (00:06→08:29)
--- NOTE | 2023-10-04 00:44 | PC.NURSE ---
Spoke to Dr. Jay about patient complaint of pain in legs. Given orders for Tramadol 50mg PO BID, as needed.
[2023-10-04] MEDS: dilTIAZem 100 MG in sodium chloride 0.9% (add-van) 100 ML 10 MG IV (01:31)
[2023-10-04] MEDS: TRAMadol 50 mg Tablet PO (01:31)
[2023-10-04 04:28] LABS: Basophils % 0.2 %; Eosinophils # 0.3 10^3/uL (0.0-0.8); Eosinophils % 4.6 %; Hematocrit 35.8 % (36-47); Lymphocytes # 1.9 10^3/uL (0.8-4.8); Lymphocytes % 33.3 %; Mean Corpuscular HGB Conc 31.6 g/dL (30-55); Mean Corpuscular Hemoglobin 32.3 pg (27-33); Mean Corpuscular Volume 102.3 fl (85-98); Mean Platelet Volume 10.2 fL (7.4-10.4); Monocytes # 0.6 10^3/uL (0.2-0.9); Monocytes % 9.9 %; Neutrophils # 2.99 10^3/uL (1.8-7.7); Neutrophils % 51.3 %; Nucleated Red Blood Cells % 0 %; Platelet Count 176 10^3/cmm (157-399); Red Cell Distribution Width 13.5 % (12.1-15.1); White Blood Count 5.83 10^3/uL (3.29-11.43)
[2023-10-04 04:50] LABS: Blood Urea Nitrogen 13 mg/dL (8-23); Calcium 8.5 mg/dL (8.5-10.5); Carbon Dioxide 24 mmol/L (22-29); Chloride 104 mmol/L (98-107); Creatinine Clr Calc Pharmacy 59.3268; Glucose 103 mg/dL (65-115); Magnesium 1.8 mg/dL (1.7-2.3); Osmolality Calculated 286 mOsm/kg (285-295); Phosphorus 2.8 mg/dL (2.5-4.5); Sodium 138 mmol/L (136-145)
[2023-10-04 04:58] LABS: INR 1.13 (0.8-1.2)
[2023-10-04 05:05] LABS: NT Pro B Type Natriuretic Pept 1322 pg/mL (0-450)
[2023-10-04 05:09] LABS: Anion Gap 14.3 (5-19); Potassium 4.3 mmol/L (3.5-5.1)
[2023-10-04] MEDS: atorvastatin 40 mg Tablet 20 MG PO (08:28)
[2023-10-04] MEDS: montelukast sodium 10 mg Tablet PO (08:28)
[2023-10-04] MEDS: sulfamethoxazole-trimeth DS 160-800 mg Tablet 1 TAB PO (08:28)
--- NOTE | 2023-10-04 08:45 | P.PN_ITS ---
Subjective 2 Subjective: Patient's heart rate has improved and is normal now. Vitals/I&O/Wt Last Vital Signs Temp 98.2 F 10/04/23 07:35 Pulse 101 H 10/04/23 07:35 Resp 25 H 10/04/23 07:35 BP 108/65 10/04/23 07:35 Pulse Ox 99 10/04/23 07:35 O2 Del Method Room Air 10/04/23 07:35 10/03/23 10/04/23 10/04/23 22:59 06:59 14:59 Intake Total 62.75 / 65.00 30.667 / 95.667 Balance 62.75 / 65.00 30.667 / 95.667 Weight last 48 hrs Weight 230 lb Weight 230 lb Weight 230 lb Physical Exam 2 Narrative: GENERAL: Patient is alert, awake and oriented x3. [] NECK: No jugular vein distension. [] HEENT: No cyanosis. No icterus. No pallor. [] HEART: Regular rate and rhythm LUNGS: Clear to auscultate bilaterally. [] CENTRAL NERVOUS SYSTEM: Grossly nonfocal. [] EXTREMITIES: Lower extremities with 1+ edema bilaterally. Data 10/04/23 04:06 10/04/23 04:20 A&P Assessment and plan (1) Congestive heart failure: Qualifiers: Heart failure type: other Qualified Code(s): I50.9 - Heart failure, unspecified (2) Aortic valve stenosis: Qualifiers: Cardiac valve disease etiology: nonrheumatic Qualified Code(s): I35.0 - Nonrheumatic aortic (valve) stenosis (3) Atrial flutter with rapid ventricular response: Plan Patient's heart rate has improved and is normal now. She is asymptomatic. Can stop Cardizem drip and switch to p.o. Cardizem 120 mg daily. Restart propafenone 150 mg 3 times daily. If patient's heart rate stays controlled till afternoon, can be discharged home. Follow up in cardiology office as scheduled. Attestations 2 Medical Necessity Statement*: Care expected to cross 2 midnights. Coding Level of Care Code Acute Code for Chg Fwd Diagnoses Other congestive heart failure I50.9 Heart failure type: other Nonrheumatic aortic valve stenosis I35.0 Cardiac valve disease etiology: nonrheumatic Atrial flutter with rapid ventricular response I48.92
--- NOTE | 2023-10-04 09:45 | PM.DCS ---
Discharge Providers Date of Admission: 10/03/23 16:07 Date of Discharge: October 04, 2023 Attending Provider at Admission: Brii Alvarez MD Attending Provider at Discharge: Brii Alvarez MD Primary Care Provider: Princess Grande MD Diagnoses at Discharge Discharge Diagnosis (1) Congestive heart failure: Status: Acute Qualifiers: Heart failure type: other Qualified Code(s): I50.9 - Heart failure, unspecified (2) Aortic valve stenosis: Status: Acute Qualifiers: Cardiac valve disease etiology: nonrheumatic Qualified Code(s): I35.0 - Nonrheumatic aortic (valve) stenosis (3) Atrial flutter with rapid ventricular response: Status: Acute Reason for Visit Reason for Visit: pacemaker put in 09/30, elavated HR Brief History: Yadira Krishnan is a 82 year old female with past medical history of hypertension, hyperlipidemia, bradycardia/sick sinus syndrome, anxiety, mucinous adenocarcinoma of colon s/p hemicolectomy osteoarthritis presented with complaint of heart rate of 192 last night. She denies any complaints of chest pain/discomfort, shortness of breath, dizziness or syncope, nausea or vomiting. She had a Holter monitor placed from June 28 through July 04 which revealed episodes of sinus rhythm, sinus bradycardia, junctional rhythm as well as atrial fibrillation. Bradycardia sinus pause was 6.5 seconds while asleep. As a result she had a standard pacemaker implantation done on 10/01/2023. She was doing well and was discharged home on 10/02/2023. As a routine she checked her blood pressure before going to bed last night and found out that the heart rate was 192. She was prescribed p.o. metoprolol at home for as needed tachycardia , which she took last night but there was no change .Hence came into ER for further evaluation. [facility] specifics- Right ventricular lead is 52 cm and model 5076. Serial number [id number] Right atrial lead is 45 cm and is model 5076. Serial number [id number]. [employer] generator: Model # [id number] Serial #[id number] In ER she had a interrogation of the pacemaker which was functioning normal. Her heart rate was found to be in 120s and did not respond to 2 doses of 10 mg IV Cardizem, hence started on Cardizem drip for rate control. Cardiology consulted in ER EKG showed paced rhythm at 121 bpm. Chest x-ray showed cardiomegaly ,no other acute abnormalities First set of troponins was 39 Last stress test in 04/20 was negative ECHO 03/21- Normal left ventricular size, systolic function and wall thickness, with no regional wall motion abnormalities. LV ejection fraction around 66%. Moderate biatrial enlargement. Thickened mitral valve. Mild aortic valve stenosis, Mild tricuspid valve regurgitation. Moderate pulmonary hypertension. Estimated pulmonary artery peak systolic pressure 67 mmHg Hospital Course Hospital Course She was started on Cardizem drip for rate control. Pacemaker was interrogated and was functioning well .She was still asymptomatic and monitored overnight on telemetry. This morning she was rate controlled, Cardizem drip discontinued and she was started on p.o. Cardizem ER 120 mg daily and home dose of propafenone 150 mg 3 times daily. She stayed rate controlled in 60's, is doing well and will be discharged home. Follow-up in cardiology clinic in 1 week. Physical Exam Narrative: She is alert awake oriented x 3 not in acute distress Chest clear to auscultation bilaterally Cardiovascular normal heart sounds no murmurs Abdomen NAD Extremities no edema noted bilateral lower extremities Discharge Data Studies Completed and Pending Completed Studies During Hospitalization Category Date Time Status XR chest 1V portable [id number] Stat Exams 10/03/23 13:03 Completed Radiology Impressions Chest X-Ray 10/03/23 13:03 IMPRESSION: Cardiomegaly. No acute abnormality identified. Laboratory Results WBC 5.83 10^3/uL (3.29-11.43) 10/04/23 04:06 RBC 3.50 10^6/uL (3.85-5.65) L 10/04/23 04:06 Hgb 11.30 g/dL (11.27-16.99) 10/04/23 04:06 Hct 35.8 % (36-47) L 10/04/23 04:06 MCV 102.3 fl (85-98) H 10/04/23 04:06 MCH 32.3 pg (27-33) 10/04/23 04:06 MCHC 31.6 g/dL (30-55) 10/04/23 04:06 RDW 13.5 % (12.1-15.1) 10/04/23 04:06 Plt Count 176 10^3/cmm (157-399) 10/04/23 04:06 MPV 10.2 fL (7.4-10.4) 10/04/23 04:06 Neut % (Auto) 51.3 % 10/04/23 04:06 Lymph % (Auto) 33.3 % 10/04/23 04:06 [place] % (Auto) 9.9 % 10/04/23 04:06 Eos % (Auto) 4.6 % 10/04/23 04:06 Baso % (Auto) 0.2 % 10/04/23 04:06 Neut # (Auto) 2.99 10^3/uL (1.8-7.7) 10/04/23 04:06 Lymph # (Auto) 1.9 10^3/uL (0.8-4.8) 10/04/23 04:06 [place] # (Auto) 0.6 10^3/uL (0.2-0.9) 10/04/23 04:06 Eos # (Auto) 0.3 10^3/uL (0.0-0.8) 10/04/23 04:06 Baso # (Auto) 0.0 10^3/uL (0.0-0.1) 10/04/23 04:06 Nucleated RBC % (auto) 0 % 10/04/23 04:06 Nucleated RBCs # 0.0 /100WBC 10/04/23 04:06 PT 14.90 SECONDS (12.1-14.9) 10/04/23 04:20 INR 1.13 (0.8-1.2) 10/04/23 04:20 Sodium 138 mmol/L (136-145) 10/04/23 04:20 Potassium 4.3 mmol/L (3.5-5.1) 10/04/23 04:20 Chloride 104 mmol/L (98-107) 10/04/23 04:20 Carbon Dioxide 24 mmol/L (22-29) 10/04/23 04:20 Anion Gap 14.3 (5-19) 10/04/23 04:20 BUN 13 mg/dL (8-23) 10/04/23 04:20 Creatinine 0.7 mg/dL (0.5-0.9) 10/04/23 04:20 GFR Calculation Not Reportable 10/04/23 04:20 Glucose 103 mg/dL (65-115) 10/04/23 04:20 Calculated Osmolality 286 mOsm/kg (285-295) 10/04/23 04:20 Calcium 8.5 mg/dL (8.5-10.5) 10/04/23 04:20 Phosphorus 2.8 mg/dL (2.5-4.5) 10/04/23 04:20 Magnesium 1.8 mg/dL (1.7-2.3) 10/04/23 04:20 Troponin T Baseline 39 ng/L (0-10) H 10/03/23 12:56 Troponin T 120 Minute 35.53 ng/L (0-10) H 10/03/23 21:33 Delta Troponin T -3.47 ABS# (0-10) L 10/03/23 21:33 Troponin T Hi Sens 6Hr 35.30 ng/L (0-10) H 10/03/23 18:44 Troponin T Hi Sens 6Hr Delta -3.70 ng/L (0-12) L 10/03/23 18:44 NT-Pro-B Natriuret Pep 1322 pg/mL (0-450) H 10/04/23 04:06 Vitals Last Vital Signs Temp 98.2 F 10/04/23 07:35 Pulse 101 H 10/04/23 07:35 Resp 25 H 10/04/23 07:35 BP 108/65 10/04/23 07:35 Pulse Ox 99 10/04/23 07:35 O2 Del Method Room Air 10/04/23 07:35 Discharge Plan Discharge Patient Disposition: Home Condition: Stable Prescriptions: New diltiazem HCl 60 mg Capsule,Extended Release 12 Hr 120 mg PO DAILY 14 Days Qty: 14 0RF Continued fexofenadine [Anat Allergy] 60 mg tablet 60 mg PO DAILY tramadol 50 mg tablet 50 mg PO BID PRN (Reason: pain) Qty: 60 3RF losartan 50 mg tablet 50 mg PO DAILY 90 Days Qty: 90 2RF Patient Comments: takes at bedtime atorvastatin 10 mg tablet 10 mg PO DAILY Qty: 90 1RF Patient Comments: Patient states she is not taking this medication 09/28/23 prednisolone acetate 1 % drops,suspension 1 drp ophthalmic (eye) BEDTIME red yeast rice 600 mg Capsule 600 mg PO BID Rx Instructions: give with meal/snack propafenone 150 mg tablet 150 mg PO TID Patient Comments: Patient states she is not taking this medication 09/28/23 furosemide 20 mg tablet 20 mg PO BID PRN (Reason: swelling) sulfamethoxazole-trimethoprim [Bactrim DS] 800-160 mg tablet 1 tab PO BID Qty: 6 0RF montelukast 10 mg tablet 10 mg PO DAILY Discharge Orders: Discharge Order (Routine); Ordered 10/04/23 Ordered By: Brii Alvarez Referrals: Princess Grande MD [Primary Care Provider] - 10/08/23 2:00 pm Shaye Mantilla FNP [Nurse Practitioner] - 10/11/23 10:00 am (follow up post hospitalization for A flutter with RVR) Discharge Diet: Cardiac Discharge Activity: Increase activity as tolerated Patient Instructions: Diltiazem (By mouth) (Cardizem, Cardizem CD, Cardizem LA, Cardizem SR), Heart Failure (DC), Atrial Flutter (DC), CHF Stoplight, Opioid Safety Discharge Attestations Time Spent in Discharge Care*: less than 30 min Status at Discharge: Cognitive status at discharge: cognitively intact, Behavioral status at discharge: cooperative, Quality Metrics Clinical Quality Measures [ No reported AMI, CVA or VTE this stay] Coding Level of Care Code Acute Code for Chg Fwd Diagnoses Other congestive heart failure I50.9 Heart failure type: other Nonrheumatic aortic valve stenosis I35.0 Cardiac valve disease etiology: nonrheumatic Atrial flutter with rapid ventricular response I48.92 Time Spent (min) 20
[2023-10-04] MEDS: dilTIAZem ER (12HR) 60 mg Capsule 120 MG PO (09:47)
[2023-10-04] MEDS: propafenone 150 mg Tablet PO (15:06)
== END 2023-10-04 16:22 | disposition home or self-care (01) | DRG 310 ==
LOC: ER 14:32 → CSU 14:46
PROVIDERS: Admitting Provider Internal Medicine; Emergency Provider Emergency Medicine; PCP Family Medicine; Visit Provider Internal Medicine
DX: I48.92 Unspecified atrial flutter (principal); I10 Essential (primary) hypertension; E78.5 Hyperlipidemia, unspecified; I49.5 Sick sinus syndrome; F41.9 Anxiety disorder, unspecified; M19.90 Unspecified osteoarthritis, unspecified site; I35.0 Nonrheumatic aortic (valve) stenosis; I48.20 Chronic atrial fibrillation, unspecified; E78.00 Pure hypercholesterolemia, unspecified; Z95.0 Presence of cardiac pacemaker; Z85.038 Personal history of other malignant neoplasm of large intestine; Z90.49 Acquired absence of other specified parts of digestive tract
CPT/HCPCS: 36415; 71045; 76000; 80048; 83735; 83880; 84100; 84484; 85025; 85610; 93005; 96365; 96366; 96372; 96375; 96376; 99285; C1779; C1786; G0378; J0690; J1644; J2704; J3490; J7030

== ENCOUNTER 2023-10-05 00:05 | Inpatient (IN) | payer MEDICARE, OTHER, SELFPAY ==
[2023-10-05] VITALS (12 sets, daily range): BP systolic 85–149; BP diastolic 55–85; PULSE 100–124; RESP 14–21; TEMP 36.5–36.8; O2SAT 91–95; BMI 42.0
--- NOTE | 2023-10-05 00:14 | XRR_ITS ---
PROCEDURE INFORMATION: Exam: XR Chest Exam date and time: 10/05/2023 12:56 AM Age: 82 years old Clinical indication: Other: Palpitations TECHNIQUE: Imaging protocol: Radiologic exam of the chest. Views: 1 view. COMPARISON: CR XR chest 1V portable [id number] 10/03/2023 1:08 PM FINDINGS: Tubes, catheters and devices: Left pacer device with intact and unchanged lead position. Airway: Mineralization of the cartilaginous rings of the trachea. Lungs: Unremarkable. No consolidation. Pleural spaces: Unremarkable. No pleural effusion. No pneumothorax. Heart/Mediastinum: Cardiomegaly, stable. Vasculature: Atherosclerotic disease of the aortic knob. Diaphragm: Unchanged right diaphragm elevation. Bones/joints: Diffuse degenerative change of the visualized osseous structures. XR/XR chest 1V portable [id number] IMPRESSION: Stable examination without acute cardiopulmonary finding.
--- NOTE | 2023-10-05 00:15 | ECG_ITS ---
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 Measurements Intervals [place] Rate: 121 P: 90 MT: 234 QRS: 249 QRSD: 157 T: 85 QT: 374 QTc: 533 Interpretive Statements ELECTRONIC VENTRICULAR PACEMAKER ABNORMAL RHYTHM ECG Compared to ECG 10/05/2023 00:18:31 No significant changes Electronically Signed On 10-05-2023 8:34:20 CDT by Cody Muhammad M.D. [email or web address]
--- NOTE | 2023-10-05 00:18 | ECG_ITS ---
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 Measurements Intervals [place] Rate: 123 P: 142 AK: 229 QRS: -87 QRSD: 158 T: 111 QT: 365 QTc: 523 Interpretive Statements ELECTRONIC VENTRICULAR PACEMAKER Compared to ECG 10/03/2023 20:21:51 No significant changes Electronically Signed On 10-05-2023 0:40:48 CDT by Marc Greer M.D. [id number]
--- NOTE | 2023-10-05 00:41 | ED_ITS ---
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 She says she was just discharged from the hospital with this. On presentation today she is slightly hypotensive with a systolic blood pressure of 85 and a diastolic of 59 with a heart rate of 123. On EKG on presentation this rate is paced. Apparently she was having pauses and so pacemaker was placed on the fourth of this month. She then came back and basically the next day and was watched for couple of days and went home today at 4:00. He is not having chest pain. Says she feels a little bit lightheaded. No altered mental status. No focal motor deficits. No fevers. Review of Systems 2 Narrative: Constitutional symptoms: Negative except as documented in HPI. Skin symptoms: Negative except as documented in HPI. Eye symptoms: Negative except as documented in HPI. ENMT symptoms: Negative except as documented in HPI. Respiratory symptoms: Negative except as documented in HPI. Cardiovascular symptoms: Negative except as documented in HPI. Gastrointestinal symptoms: Negative except as documented in HPI. Genitourinary symptoms: Negative except as documented in HPI. Musculoskeletal symptoms: Negative except as documented in HPI. Neurologic symptoms: Negative except as documented in HPI. Psychiatric symptoms: Negative except as documented in HPI. Endocrine symptoms: Negative except as documented in HPI. PFSH ED 2 PFSH: Medical History Congestive heart failure Osteoarthritis Aortic valve stenosis Anxiety Bradycardia by electrocardiogram Hypertension Chronic atrial fibrillation Hypercholesteremia Surgical History Hx of cholecystectomy Family History Father CAD (coronary artery disease) Mother Cancer Lung Grandmother Diabetes Denies family history of Clotting disorder Dementia Hyperlipidemia Psychiatric illness Chronic kidney disease (CKD) Suicide Anesthesia complication Bleeding disorder Lung disease Hypertension Stroke Social History Smoking and tobacco/nicotine status: never used tobacco/nicotine Alcohol intake: never Substance/Drug Use: never Physical Exam 2 Narrative: EXAM NARRATIVE: General: Alert, no acute distress. Skin: Warm, dry. Head: Normocephalic, atraumatic. Neck: Supple, trachea midline. Eye: Extraocular movements are intact. Ears, nose, mouth and throat: mucosa moist. Cardiovascular: Regular, Normal peripheral perfusion. Respiratory: Lungs are clear to auscultation, respirations are non-labored, breath sounds are equal, Symmetrical chest wall expansion. Gastrointestinal: Soft, Nontender, Non distended, Normal bowel sounds. Musculoskeletal: Normal ROM, no deformity. Neurological: Alert and oriented, No focal neurological deficit observed. Psychiatric: Cooperative, appropriate mood & affect. Course 2 Vital Signs: Vital signs: Vital Signs Temperature 98 F 10/05/23 00:13 Pulse Rate 122 H 10/05/23 00:19 Respiratory Rate 18 10/05/23 00:19 Blood Pressure 100/55 10/05/23 00:19 Pulse Oximetry 94 10/05/23 00:19 Oxygen Delivery Me thod Room Air 10/05/23 00:19 MDM - Arrhythmia/Palpitations Medical Decision Making Medical decision making: Differential diagnosis including but not limited to and based on the above HPI, review of systems and physical exam: for patient with palpitations: atrial fibrillation with rapid ventricular response. ventricular tachycardia. sinus tachycardia. PVCs. also concern for underlying issues causing tachycardia. Infection, electrolyte abnormalities and thyroid issues Orders placed to evaluate differential diagnosis based on the above differential, HPI and physical exam EKG: Time 12:18 AM rate 123. Time sinus tachycardia, No ST-T changes, no ectopy, paced rhythm, this was reviewed and interpreted by myself the emergency room physician at 12:20 AM Lab Review: Laboratory results were reviewed and interpreted by myself the emergency room physician. Lab work is fairly unremarkable. No leukocytosis. Stable anemia. BUN and creatinine are 15 and 1.0. Glucose is 125. Her initial troponin is 31. Chest x-ray: Pacemaker placement. Mild cardiomegaly. No focal infiltrates. No pulmonary edema. This was reviewed and interpreted by myself the ER physician. I reviewed the patient's medical record. Consultation: I spoke with Dr. Jay information resources director for the hospitalist. He agrees to observation. Reexamination: Patient remains tachycardic but stable. No increased work of breathing. No altered mental status. Her blood pressure is still little bit soft. But improved from 85 systolic initially. Assessment and plan: Tachycardia Hypotension -I discussed the patient with the hospitalist on-call who is admitting the patient. - Discussed findings and plan with patient. Answered any questions. - All laboratory values were reviewed and interpreted personally by myself, the ER physician - All imaging was reviewed and interpreted personally by myself, the ER physician. - Evaluation and treatment of this problem were appropriate in the emergency setting Lab Data 10/05/23 00:40 10/05/23 00:40 Laboratory Results WBC 6.34 10^3/uL (3.29-11.43) 10/05/23 00:40 RBC 3.57 10^6/uL (3.85-5.65) L 10/05/23 00:40 Hgb 11.50 g/dL (11.27-16.99) 10/05/23 00:40 Hct 36.4 % (36-47) 10/05/23 00:40 MCV 102.0 fl (85-98) H 10/05/23 00:40 MCH 32.2 pg (27-33) 10/05/23 00:40 MCHC 31.6 g/dL (30-55) 10/05/23 00:40 RDW 13.4 % (12.1-15.1) 10/05/23 00:40 Plt Count 180 10^3/cmm (157-399) 10/05/23 00:40 MPV 9.2 fL (7.4-10.4) 10/05/23 00:40 Neut % (Auto) 58.8 % 10/05/23 00:40 Lymph % (Auto) 25.2 % 10/05/23 00:40 [place] % (Auto) 9.1 % 10/05/23 00:40 Eos % (Auto) 5.8 % 10/05/23 00:40 Baso % (Auto) 0.6 % 10/05/23 00:40 Neut # (Auto) 3.72 10^3/uL (1.8-7.7) 10/05/23 00:40 Lymph # (Auto) 1.6 10^3/uL (0.8-4.8) 10/05/23 00:40 [place] # (Auto) 0.6 10^3/uL (0.2-0.9) 10/05/23 00:40 Eos # (Auto) 0.4 10^3/uL (0.0-0.8) 10/05/23 00:40 Baso # (Auto) 0.0 10^3/uL (0.0-0.1) 10/05/23 00:40 Nucleated RBC % (auto) 0 % 10/05/23 00:40 Nucleated RBCs # 0.0 /100WBC 10/05/23 00:40 Sodium 139 mmol/L (136-145) 10/05/23 00:40 Potassium 4.2 mmol/L (3.5-5.1) 10/05/23 00:40 Chloride 103 mmol/L (98-107) 10/05/23 00:40 Carbon Dioxide 26 mmol/L (22-29) 10/05/23 00:40 Anion Gap 14.2 (5-19) 10/05/23 00:40 BUN 15 mg/dL (8-23) 10/05/23 00:40 Creatinine 1.0 mg/dL (0.5-0.9) H 10/05/23 00:40 GFR Calculation Not Reportable 10/05/23 00:40 Glucose 125 mg/dL (65-115) H 10/05/23 00:40 Calculated Osmolality 290 mOsm/kg (285-295) 10/05/23 00:40 Calcium 8.5 mg/dL (8.5-10.5) 10/05/23 00:40 Total Bilirubin 0.3 mg/dL (0.15-1.2) 10/05/23 00:40 AST 25 U/L (0-32) 10/05/23 00:40 ALT 11 U/L (0-33) 10/05/23 00:40 Alkaline Phosphatase 125 U/L (35-105) H 10/05/23 00:40 Troponin T Baseline 31 ng/L (0-10) H 10/05/23 00:40 Total Protein 6.1 g/dL (6.6-8.7) L 10/05/23 00:40 Albumin 3.4 g/dL (3.5-5.2) L 10/05/23 00:40 Globulin 2.7 g/dL (1.3-4.6) 10/05/23 00:40 XR interpretation done by ED provider, pending radiology final review Discharge Plan Discharge Patient Disposition: Placed in Observation Clinical Impression: Sinus tachycardia Coding Level of Care Code ED Customs Compliance Analyst for Carlyn Villagomez
[2023-10-05 00:49] LABS: Basophils % 0.6 %; Eosinophils # 0.4 10^3/uL (0.0-0.8); Eosinophils % 5.8 %; Hematocrit 36.4 % (36-47); Lymphocytes # 1.6 10^3/uL (0.8-4.8); Lymphocytes % 25.2 %; Mean Corpuscular HGB Conc 31.6 g/dL (30-55); Mean Corpuscular Hemoglobin 32.2 pg (27-33); Mean Platelet Volume 9.2 fL (7.4-10.4); Monocytes # 0.6 10^3/uL (0.2-0.9); Monocytes % 9.1 %; Neutrophils # 3.72 10^3/uL (1.8-7.7); Neutrophils % 58.8 %; Nucleated Red Blood Cells % 0 %; Platelet Count 180 10^3/cmm (157-399); Red Blood Count 3.57 10^6/uL (3.85-5.65); Red Cell Distribution Width 13.4 % (12.1-15.1); White Blood Count 6.34 10^3/uL (3.29-11.43)
[2023-10-05 01:07] LABS: Troponin(5th) Baseline 31 ng/L (0-10)
[2023-10-05 01:16] LABS: Alanine Aminotransferase 11 U/L (0-33); Albumin Level 3.4 g/dL (3.5-5.2); Alkaline Phosphatase 125 U/L (35-105); Anion Gap 14.2 (5-19); Aspartate Amino Transferase 25 U/L (0-32); Blood Urea Nitrogen 15 mg/dL (8-23); Calcium 8.5 mg/dL (8.5-10.5); Carbon Dioxide 26 mmol/L (22-29); Chloride 103 mmol/L (98-107); Globulin 2.7 g/dL (1.3-4.6); Glucose 125 mg/dL (65-115); Osmolality Calculated 290 mOsm/kg (285-295); Potassium 4.2 mmol/L (3.5-5.1); Sodium 139 mmol/L (136-145); Total Bilirubin 0.3 mg/dL (0.15-1.2); Total Protein 6.1 g/dL (6.6-8.7)
[2023-10-05 01:17] LABS: Creatinine Clr Calc Pharmacy 47.4614
--- NOTE | 2023-10-05 01:41 | P.HP_ITS ---
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 Patient reports heart rate between 120s to 140s at home. She states it was normal prior and the day before going home. She denies chest pain, shortness of breath, nausea or emesis. Patient denies alleviating or aggravating factors. Of note, patient was discharged on 10/04/2023. She was admitted for cardiac arrhythmias. Pacemaker was placed on 09/30. She was discharged to home after pacemaker placement on 10/01. She presented to the ED again on 10/02 with atrial tachycardia with rapid ventricular rate. She was started on Cardizem drip. Cardiology was consulted and followed. She was converted to oral Cardizem 120 mg daily and restarted on propafenone on 10/03. Heart rate remained controlled and she was discharged home. Review of Systems 2 Narrative: A complete review of systems was obtained and is negative except as stated in HPI. Medications/Allergies Home Medications Medication Instructions Recorded Confirmed Last Taken Type prednisolone acetate 1 % eye 1 drp ophthalmic (eye) BEDTIME 10/28/20 10/03/23 10/02/23 History drops,suspension tramadol 50 mg tablet 50 mg PO BID PRN pain #60 tabs 02/08/23 10/03/23 09/30/23 Rx losartan 50 mg tablet 50 mg PO DAILY 90 days #90 tabs 06/19/23 10/03/23 10/02/23 Rx atorvastatin 10 mg tablet 10 mg PO DAILY #90 tabs 06/25/23 10/03/23 09/30/23 Rx fexofenadine 60 mg tablet (Anat 60 mg PO DAILY 08/20/23 10/03/23 10/02/23 History Allergy) propafenone 150 mg tablet 150 mg PO TID 09/13/23 10/03/23 10/02/23 History red yeast rice 600 mg capsule 600 mg PO BID 09/13/23 10/03/23 10/02/23 History furosemide 20 mg tablet 20 mg PO BID PRN swelling 10/01/23 10/03/23 Unknown History sulfamethoxazole 800 1 tab PO BID #6 tabs 10/02/23 10/03/23 Unknown Rx mg-trimethoprim 160 mg tablet (Bactrim DS) montelukast 10 mg tablet 10 mg PO DAILY 10/03/23 10/03/23 10/02/23 History diltiazem HCl 60 mg 120 mg (2 x 60 mg) PO DAILY 14 10/04/23 Unknown Rx capsule,extended release 12 hr days #14 caps Allergies Allergy/AdvReac Type Severity Reaction Status Date / Time No Known Allergies Allergy Verified 10/03/23 11:47 PFSH Acute 2 PFSH: Medical History Congestive heart failure Osteoarthritis Aortic valve stenosis Anxiety Bradycardia by electrocardiogram Hypertension Chronic atrial fibrillation Hypercholesteremia Surgical History Hx of cholecystectomy Family History Father CAD (coronary artery disease) Mother Cancer Lung Grandmother Diabetes Denies family history of Clotting disorder Dementia Hyperlipidemia Psychiatric illness Chronic kidney disease (CKD) Suicide Anesthesia complication Bleeding disorder Lung disease Hypertension Stroke Social History Smoking and tobacco/nicotine status: never used tobacco/nicotine Alcohol intake: never Substance/Drug Use: never Vitals/I&O/Wt Last Vital Signs Temp 98 F 10/05/23 00:13 Pulse 122 H 10/05/23 00:19 Resp 18 10/05/23 00:19 BP 100/55 10/05/23 00:19 Pulse Ox 94 10/05/23 00:19 O2 Del Method Room Air 10/05/23 00:19 Weight last 48 hrs Weight 104.326 kg Physical Exam 2 Narrative: General: Patient is awake and alert. Head: Normocephalic. Atraumatic. EOM intact. Neck: No JVD. Cardiovascular: No gallops. No murmurs. Rhythm is regular. Tachycardic. Lungs: Clear to auscultation, no use of accessory muscles, no crackles or wheezes. Skin: No jaundice. No rashes. Abdomen: Normal bowel sounds, abdomen soft and nontender. Genito Urinary: Genital exam not performed since complaints not related. Rectal: Rectal exam not performed since no symptoms indicated blood loss. Extremities: No cyanosis or clubbing. Musculoskeletal: No swollen or erythematous joints. Neurological: Moves all 4 extremities. No myoclonus. Data 10/05/23 00:40 10/05/23 00:40 A&P Assessment and plan (1) Tachyarrhythmia: Patient presents with tachyarrhythmia She is status post pacemaker placement / Pacemaker appears to be tracking Blood pressure soft, start short acting Cardizem and titrate Continue home propafenone Hold other antihypertensives Telemetry monitoring Monitor electrolytes Anticipate cardiology consult in a.m. (2) Benign essential HTN: Hold losartan and allow room for Cardizem (3) Lower GI bleed: History of GI bleed, not actively bleeding Not on anticoagulation due to history of GI bleed (4) Dyslipidemia: Continue home statin Plan DVT prophylaxis: Heparin CODE STATUS: Full code Attestations 2 Medical Necessity Statement*: Patient presents espoused back with tachyarrhythmia with expected hospitalization not to cross 2 midnights for continuous telemetry monitoring, adjustment of medications, and consideration of cardiology consult. Coding Level of Care Code Acute Code for [facility] Fwd Diagnoses Tachyarrhythmia R00.0 Benign essential HTN I10 Lower GI bleed K92.2 Dyslipidemia E78.5
[2023-10-05] MEDS: heparin 5,000 unit/mL INJ 1 mL 5000 UNIT SUBCUT ×2 (03:13→15:53)
[2023-10-05] MEDS: dilTIAZem 60 mg Tablet PO ×4 (03:13→19:56)
[2023-10-05 03:59] LABS: Add Urine Culture? No; Bacteria Urine 1+ /hpf; Bilirubin Urine 1+ (Negative); Blood Urine 2+ (Negative); Glucose Urine UA Norm (Normal); Ketones Urine 1+ (Negative); Leukocyte Esterase Urine 2+ (Negative); Mucus Urine 2+ /hpf; Nitrate Urine Negative (Negative); Protein Urine Trace (Negative); Urine Appearance Slightly Cloudy (CLEAR); Urine Color Dark Yellow (Yellow); Urobilinogen Urine 1 mg/dL (Negative); WBC Urine 15-25 /hpf (0-5); pH Urine 5 (5-7)
[2023-10-05 04:00] LABS: Transitional Epi Cells Urine 0-4 /hpf
[2023-10-05 04:36] LABS: Magnesium 1.8 mg/dL (1.7-2.3)
[2023-10-05 04:38] LABS: Troponin 5 2HR 30.24 ng/L (0-10)
[2023-10-05 04:40] LABS: Troponin 5 2HR Delta -0.76 ABS# (0-10)
--- NOTE | 2023-10-05 06:21 | ECG_ITS ---
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 Measurements Intervals [place] Rate: 124 P: 48 FL: 221 QRS: -73 QRSD: 154 T: 107 QT: 370 QTc: 532 Interpretive Statements ELECTRONIC VENTRICULAR PACEMAKER ABNORMAL RHYTHM ECG Compared to ECG 10/05/2023 01:06:09 No significant changes Electronically Signed On 10-05-2023 8:37:45 CDT by Cody Muhammad M.D. [email or web address]
[2023-10-05 07:34] LABS: Troponin 5 6HR 29.38 ng/L (0-10)
[2023-10-05 07:36] LABS: Troponin 5 6HR Delta -1.62 ng/L (0-12)
--- NOTE | 2023-10-05 08:10 | PC.NURSE ---
Provider ordered cefriaxone 1000mg daily IV.
[2023-10-05] MEDS: cefTRIAXone 1,000 MG in sodium chloride 0.9% (plus) 50 ML 100 MG IV (08:32)
[2023-10-05] MEDS: atorvastatin 40 mg Tablet 10 MG PO (08:33)
[2023-10-05] MEDS: montelukast sodium 10 mg Tablet PO (08:33)
[2023-10-05] MEDS: fexofenadine 60 mg Tablet PO (08:33)
[2023-10-05] MEDS: propafenone 150 mg Tablet PO ×3 (08:33→19:58)
--- NOTE | 2023-10-05 10:53 | P.PN_ITS ---
Subjective 2 Subjective: Seen hide this morning at bedside. Denies any complaints of palpitation or chest pain/discomfort. She will discharge home yesterday evening and heart rate was well-controlled, but then had heart rate of 120s at night at bedtime and hence she came to ER. She is still asymptomatic. But now found to have UTI. Medications: Reviewed: Yes Vitals/I&O/Wt Last Vital Signs Temp 97.7 F 10/05/23 07:43 Pulse 124 H 10/05/23 07:43 Resp 16 10/05/23 03:31 BP 105/81 10/05/23 07:43 Pulse Ox 94 10/05/23 07:43 O2 Del Method Room Air 10/05/23 07:43 10/04/23 10/05/23 10/05/23 22:59 06:59 14:59 Intake Total 120 / 120 170 / 170 Output Total 75 / 75 Balance 45 / 45 170 / 170 Weight last 48 hrs Weight 104.871 kg Weight 104.326 kg Physical Exam 2 Narrative: She is alert awake oriented x 3 Chest clear to auscultation bilaterally Cardiovascular normal heart sounds no murmurs Abdomen NAD Extremities no edema noted bilaterally lower extremities Data 10/05/23 00:40 10/05/23 00:40 A&P Assessment and plan (1) Tachyarrhythmia: (2) Urinary tract infection: Qualifiers: Hematuria presence: without hematuria Urinary tract infection type: a cute cystitis Qualified Code(s): N30.00 - Acute cystitis without hematuria Plan 82 year old female with a past medical history significant for hypertension, hyperlipidemia, sick sinus syndrome status post recent pacemaker placement, anxiety, 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 Patient reports heart rate between 120s to 140s at home. She states it was normal prior and the day before going home. Tachyarrhythmia likely secondary to UTI. Continue telemetry monitoring Continue Cardizem p.o. 60 mg every 6 hours, heart rate in 100s and she is asymptomatic P.o. losartan on hold for concern for low blood pressure. Started IV ceftriaxone 1 g daily for UTI She is not on anticoagulation due to history of GI bleed Resume rest of the home medications DVT prophylaxis with subcutaneous heparin Cardiac diet She is full code for now Attestations 2 Medical Necessity Statement*: She needs continued hospitalization not crossing 2 midnights for management of tachyarrhythmia Time Spent in Patient Care: 15 minutes Coding Level of Care Code Acute Code for [facility] Fwd Diagnoses Tachyarrhythmia R00.0 Urinary tract infection N30.00 Hematuria presence: without hematuria Urinary tract infection type: acute cystitis Time Spent (min) 15
[2023-10-06] VITALS (9 sets, daily range): BP systolic 112–137; BP diastolic 64–85; PULSE 87–116; RESP 15–18; TEMP 36.6–36.9; O2SAT 92–96
[2023-10-06] MEDS: heparin 5,000 unit/mL INJ 1 mL 5000 UNIT SUBCUT ×2 (02:43→14:16)
[2023-10-06] MEDS: dilTIAZem 60 mg Tablet PO ×4 (02:44→19:57)
[2023-10-06 04:45] LABS: Basophils % 0.5 %; Eosinophils # 0.4 10^3/uL (0.0-0.8); Eosinophils % 5.9 %; Hematocrit 34.8 % (36-47); Lymphocytes # 2.1 10^3/uL (0.8-4.8); Lymphocytes % 34.3 %; Mean Corpuscular HGB Conc 31.3 g/dL (30-55); Mean Corpuscular Volume 102.1 fl (85-98); Mean Platelet Volume 10.3 fL (7.4-10.4); Monocytes # 0.6 10^3/uL (0.2-0.9); Monocytes % 9.7 %; Neutrophils # 2.94 10^3/uL (1.8-7.7); Neutrophils % 49.1 %; Nucleated Red Blood Cells % 0 %; Platelet Count 203 10^3/cmm (157-399); Red Blood Count 3.41 10^6/uL (3.85-5.65); Red Cell Distribution Width 13.6 % (12.1-15.1); White Blood Count 5.98 10^3/uL (3.29-11.43)
[2023-10-06 05:08] LABS: Blood Urea Nitrogen 16 mg/dL (8-23); Calcium 8.7 mg/dL (8.5-10.5); Carbon Dioxide 25 mmol/L (22-29); Chloride 106 mmol/L (98-107); Creatinine Clr Calc Pharmacy 52.8951; Glucose 114 mg/dL (65-115); Osmolality Calculated 294 mOsm/kg (285-295); Sodium 141 mmol/L (136-145)
[2023-10-06 05:17] LABS: Anion Gap 14.1 (5-19); Potassium 4.1 mmol/L (3.5-5.1)
[2023-10-06] MEDS: propafenone 150 mg Tablet PO ×3 (08:17→20:01)
[2023-10-06] MEDS: atorvastatin 40 mg Tablet 10 MG PO (08:17)
[2023-10-06] MEDS: cefTRIAXone 1,000 MG in sodium chloride 0.9% (plus) 50 ML 100 MG IV (08:18)
[2023-10-06] MEDS: fexofenadine 60 mg Tablet PO (08:18)
[2023-10-06] MEDS: montelukast sodium 10 mg Tablet PO (08:18)
--- NOTE | 2023-10-06 08:41 | PC.NURSE ---
Provider ordered metoprolol 25mg BID, first dose now.
[2023-10-06] MEDS: metoprolol tartrate 25 mg Tablet PO ×2 (08:54→20:01)
[2023-10-06] MEDS: ondansetron 4 MG Tablet PO (08:56)
--- NOTE | 2023-10-06 09:33 | PC.NURSE ---
Addendum entered by Alie Rangel RN 10/06/23 09:34: Patient is asymptomatic and heart rates 70-80's. Original Note: Provider notified that patient is been having VPC runs. No new orders given.
--- NOTE | 2023-10-06 10:38 | P.PN_ITS ---
Subjective 2 Subjective: No acute overnight events noted. She is still asymptomatic. She had a heart rate in 120s all day yesterday, this morning she she had a rate control at 70 bpm with occasional PVCs. Denies any new complaints Medications: Reviewed: Yes Vitals/I&O/Wt Last Vital Signs Temp 97.8 F 10/06/23 07:30 Pulse 116 H 10/06/23 07:30 Resp 15 10/06/23 07:30 BP 137/85 10/06/23 07:30 Pulse Ox 92 10/06/23 07:30 O2 Del Method Room Air 10/06/23 07:30 10/05/23 10/06/23 10/06/23 22:59 06:59 14:59 Intake Total 120 / 290 120 / 410 170 / 170 Output Total 350 / 350 125 / 475 100 / 100 Balance -230 / -60 -5 / -65 70 / 70 Weight last 48 hrs Weight 149.515 kg Weight 104.871 kg Weight 104.326 kg Physical Exam 2 Narrative: She is alert awake oriented x 3 Chest clear to auscultation bilaterally Cardiovascular normal heart sounds no murmurs Abdomen NAD Extremities no edema noted bilaterally lower extremities Data 10/06/23 03:45 10/06/23 03:45 A&P Assessment and plan (1) Tachyarrhythmia: (2) Urinary tract infection: Qualifiers: Hematuria presence: without hematuria Urinary tract infection type: a cute cystitis Qualified Code(s): N30.00 - Acute cystitis without hematuria Plan 82 year old female with a past medical history significant for hypertension, hyperlipidemia, sick sinus syndrome status post recent pacemaker placement, anxiety, 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 Patient reports heart rate between 120s to 140s at home. She states it was normal prior and the day before going home. Tachyarrhythmia likely secondary to UTI. Continue telemetry monitoring Continue Cardizem p.o. 60 mg every 6 hours, heart rate in 100s and she is asymptomatic Will add p.o. metoprolol 25 mg twice daily for rate control. P.o. losartan on hold for concern for low blood pressure. Started IV ceftriaxone 1 g daily for UTI She is not on anticoagulation due to history of GI bleed Resume rest of the home medications DVT prophylaxis with subcutaneous heparin Cardiac diet She is full code for now Attestations 2 Medical Necessity Statement*: She needs continued hospitalization for management of tachyarrhythmia and UTI with IV antibiotics Time Spent in Patient Care: 15 minutes Coding Level of Care Code Acute Code for [facility] Fw Diagnoses Tachyarrhythmia R00.0 Urinary tract infection N30.00 Hematuria presence: without hematuria Urinary tract infection type: acute cystitis Time Spent (min) 15
[2023-10-07] MEDS: dilTIAZem 60 mg Tablet PO ×2 (02:53→07:36)
[2023-10-07] MEDS: heparin 5,000 unit/mL INJ 1 mL 5000 UNIT SUBCUT (02:54)
[2023-10-07 03:12] VITALS: BP 121/73; PULSE 87; RESP 18; TEMP 36.7; O2SAT 94
[2023-10-07 04:19] VITALS: PULSE 92
[2023-10-07 05:09] LABS: Anion Gap 12.3 (5-19); Blood Urea Nitrogen 17 mg/dL (8-23); Calcium 8.8 mg/dL (8.5-10.5); Carbon Dioxide 25 mmol/L (22-29); Chloride 103 mmol/L (98-107); Creatinine Clr Calc Pharmacy 59.4114; Glucose 111 mg/dL (65-115); Osmolality Calculated 284 mOsm/kg (285-295); Potassium 4.3 mmol/L (3.5-5.1); Sodium 136 mmol/L (136-145)
[2023-10-07] MEDS: fexofenadine 60 mg Tablet PO (07:36)
[2023-10-07] MEDS: montelukast sodium 10 mg Tablet PO (07:37)
[2023-10-07] MEDS: propafenone 150 mg Tablet PO (07:37)
[2023-10-07] MEDS: cefTRIAXone 1,000 MG in sodium chloride 0.9% (plus) 50 ML 100 MG IV (07:37)
[2023-10-07] MEDS: atorvastatin 40 mg Tablet 10 MG PO (07:38)
[2023-10-07] MEDS: metoprolol tartrate 25 mg Tablet PO (07:40)
[2023-10-07 07:55] VITALS: BP 151/85; PULSE 108; RESP 16; TEMP 36.9
--- NOTE | 2023-10-07 10:12 | P.DS_ITS ---
Discharge Providers Date of Admission: 10/05/23 01:51 Date of Discharge: October 07, 2023 Attending Provider at Admission: Junaid Jay MD Attending Provider at Discharge: Brii Alvarez MD Primary Care Provider: Princess Grande MD Diagnoses at Discharge Discharge Diagnosis (1) Tachyarrhythmia: Status: Acute (2) Urinary tract infection: Status: Acute Qualifiers: Hematuria presence: without hematuria Urinary tract infection type: acute cystitis Qualified Code(s): N30.00 - Acute cystitis without hematuria Reason for Visit Reason for Visit: Heart palpitation Brief History: 82 year old female with a past medical h istory significant for hypertension, hyperlipidemia, sick sinus syndrome status post recent pacemaker placement, anxiety, 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 Patient reports heart rate between 120s to 140s at home. She states it was normal prior and the day before going home. She denies chest pain, shortness of breath, nausea or emesis. Patient denies alleviating or aggravating factors. Of note, patient was discharged on 10/04/2023. She was admitted for cardiac arrhythmias. Pacemaker was placed on 09/30. She was discharged to home after pacemaker placement on 10/01. She presented to the ED again on 10/02 with atrial tachycardia with rapid ventricular rate. She was started on Cardizem drip. Cardiology was consulted and followed. She was converted to oral Cardizem 120 mg daily and restarted on propafenone on 10/03. Heart rate remained controlled and she was discharged home. Hospital Course Hospital Course She was admitted in [facility] for continuous telemetry monitoring. Her heart rate remained in 120s and she was asymptomatic. She was monitored on p.o. Cardizem 60 mg every 6 hours but her heart rate persisted in 120s. Plan was to add p.o. metoprolol 25 mg twice a day. She is now rate controlled in 90s, asymptomatic and doing well. She was also found to have a UTI and was started on IV ceftriaxone 1 g daily. Her leukocytosis count is normal she is afebrile with no urinary complaints. She is ready for discharge home today. She will follow-up with PCP and cardiology clinic in 1 week. Will be discharged on p.o. propafenone, p.o. Cardizem, p.o. metoprolol for rate controlled and p.o. levofloxacin for 5 days for UTI. Physical Exam Narrative: She is alert awake oriented x 3 Chest clear to auscultation bilaterally Cardiovascular normal heart sounds no murmurs Abdomen NAD Extremities no edema noted bilaterally lower extremities Discharge Data Studies Completed and Pending Completed Studies During Hospitalization Category Date Time Status XR chest 1V portable [id number] Stat Exams 10/05/23 00:14 Completed Radiology Impressions Chest X-Ray 10/05/23 00:14 IMPRESSION: Stable examination without acute cardiopulmonary finding. Laboratory Results WBC 5.98 10^3/uL (3.29-11.43) 10/06/23 03:45 RBC 3.41 10^6/uL (3.85-5.65) L 10/06/23 03:45 Hgb 10.90 g/dL (11.27-16.99) L 10/06/23 03:45 Hct 34.8 % (36-47) L 10/06/23 03:45 MCV 102.1 fl (85-98) H 10/06/23 03:45 MCH 32.0 pg (27-33) 10/06/23 03:45 MCHC 31.3 g/dL (30-55) 10/06/23 03:45 RDW 13.6 % (12.1-15.1) 10/06/23 03:45 Plt Count 203 10^3/cmm (157-399) 10/06/23 03:45 MPV 10.3 fL (7.4-10.4) 10/06/23 03:45 Neut % (Auto) 49.1 % 10/06/23 03:45 Lymph % (Auto) 34.3 % 10/06/23 03:45 [place] % (Auto) 9.7 % 10/06/23 03:45 Eos % (Auto) 5.9 % 10/06/23 03:45 Baso % (Auto) 0.5 % 10/06/23 03:45 Neut # (Auto) 2.94 10^3/uL (1.8-7.7) 10/06/23 03:45 Lymph # (Auto) 2.1 10^3/uL (0.8-4.8) 10/06/23 03:45 [place] # (Auto) 0.6 10^3/uL (0.2-0.9) 10/06/23 03:45 Eos # (Auto) 0.4 10^3/uL (0.0-0.8) 10/06/23 03:45 Baso # (Auto) 0.0 10^3/uL (0.0-0.1) 10/06/23 03:45 Nucleated RBC % (auto) 0 % 10/06/23 03:45 Nucleated RBCs # 0.0 /100WBC 10/06/23 03:45 Sodium 136 mmol/L (136-145) 10/07/23 04:36 Potassium 4.3 mmol/L (3.5-5.1) 10/07/23 04:36 Chloride 103 mmol/L (98-107) 10/07/23 04:36 Carbon Dioxide 25 mmol/L (22-29) 10/07/23 04:36 Anion Gap 12.3 (5-19) 10/07/23 04:36 BUN 17 mg/dL (8-23) 10/07/23 04:36 Creatinine 1.0 mg/dL (0.5-0.9) H 10/07/23 04:36 GFR Calculation Not Reportable 10/07/23 04:36 Glucose 111 mg/dL (65-115) 10/07/23 04:36 Calculated Osmolality 284 mOsm/kg (285-295) L 10/07/23 04:36 Calcium 8.8 mg/dL (8.5-10.5) 10/07/23 04:36 Magnesium 1.8 mg/dL (1.7-2.3) 10/05/23 03:15 Total Bilirubin 0.3 mg/dL (0.15-1.2) 10/05/23 00:40 AST 25 U/L (0-32) 10/05/23 00:40 ALT 11 U/L (0-33) 10/05/23 00:40 Alkaline Phosphatase 125 U/L (35-105) H 10/05/23 00:40 Troponin T Baseline 31 ng/L (0-10) H 10/05/23 00:40 Troponin T 120 Minute 30.24 ng/L (0-10) H 10/05/23 03:15 Delta Troponin T -0.76 ABS# (0-10) L 10/05/23 03:15 Troponin T Hi Sens 6Hr 29.38 ng/L (0-10) H 10/05/23 06:53 Troponin T Hi Sens 6Hr Delta -1.62 ng/L (0-12) L 10/05/23 06:53 Total Protein 6.1 g/dL (6.6-8.7) L 10/05/23 00:40 Albumin 3.4 g/dL (3.5-5.2) L 10/05/23 00:40 Globulin 2.7 g/dL (1.3-4.6) 10/05/23 00:40 Urine Color Dark yellow (Yellow) 10/05/23 03:45 Urine Appearance Slightly cloudy (CLEAR) 10/05/23 03:45 Urine pH 5 (5-7) 10/05/23 03:45 Ur Specific [place] 1.020 (1.005-1.030) 10/05/23 03:45 Urine Protein Trace (Negative) 10/05/23 03:45 Urine Glucose (UA) Norm (Normal) 10/05/23 03:45 Urine Ketones 1+ (Negative) H 10/05/23 03:45 Urine Blood 2+ (Negative) H 10/05/23 03:45 Urine Nitrate Negative (Negative) 10/05/23 03:45 Urine Bilirubin 1+ (Negative) H 10/05/23 03:45 Urine Urobilinogen 1 mg/dL (Negative) H 10/05/23 03:45 Ur Leukocyte Esterase 2+ (Negative) H 10/05/23 03:45 Urine RBC 5-10 /hpf (0-2) H 10/05/23 03:45 Urine WBC 15-25 /hpf (0-5) H 10/05/23 03:45 Ur Squamous Epith Cells 10-15 /hpf (0-5) H 10/05/23 03:45 Ur Transition Epith Cell 0-4 /hpf 10/05/23 03:45 Amorphous Sediment Not Reportable 10/05/23 03:45 Urine Bacteria 1+ /hpf (NONE) H 10/05/23 03:45 Urine Mucus 2+ /hpf 10/05/23 03:45 Vitals Last Vital Signs Temp 98.4 F 10/07/23 07:55 Pulse 108 H 06/09/24 07:55 Resp 16 10/07/23 07:55 BP 151/85 10/07/23 07:55 Pulse Ox 94 10/07/23 03:12 O2 Del Method Room Air 10/07/23 03:12 Discharge Plan Discharge Patient Disposition: Home Condition: Stable Prescriptions: New diltiazem HCl 60 mg Tablet 60 mg PO Q6H 7 Days Qty: 28 0RF metoprolol tartrate 25 mg Tablet 25 mg PO BID@0900,2100 7 Days Qty: 14 0RF Protonix 40 mg tablet,delayed release (DR/EC) 40 mg PO DAILY 7 Days Qty: 7 0RF levofloxacin 750 mg tablet 750 mg PO DAILY 5 Days Qty: 5 0RF Continued fexofenadine [Anat Allergy] 60 mg tablet 60 mg PO DAILY tramadol 50 mg tablet 50 mg PO BID PRN (Reason: pain) Qty: 60 3RF atorvastatin 10 mg tablet 10 mg PO DAILY Qty: 90 1RF Patient Comments: Patient states she is not taking this medication 09/28/23 prednisolone acetate 1 % drops,suspension 1 drp ophthalmic (eye) BEDTIME red yeast rice 600 mg Capsule 600 mg PO BID Rx Instructions: give with meal/snack propafenone 150 mg tablet 150 mg PO TID furosemide 20 mg tablet 20 mg PO BID PRN (Reason: swelling) montelukast 10 mg tablet 10 mg PO DAILY Discontinued losartan 50 mg tablet 50 mg PO DAILY 90 Days Qty: 90 2RF Patient Comments: takes at bedtime sulfamethoxazole-trimethoprim [Bactrim DS] 800-160 mg tablet 1 tab PO BID Qty: 6 0RF diltiazem HCl 60 mg Capsule,Extended Release 12 Hr 120 mg PO DAILY 14 Days Qty: 14 0RF Discharge Orders: Discharge Order (Routine); Ordered 10/07/23 Ordered By: Brii Alvarez Referrals: Princess Grande MD [Primary Care Provider] - 10/15/23 10:00 am (We have notified your physician's clinic of the need for a follow-up appointment to be scheduled. If you have not heard from them within the next 2 business days, please call them directly. ) Shaye Mantilla FNP [Nurse Practitioner] - 10/13/23 10:00 am Discharge Diet: Cardiac Discharge Activity: Increase activity as tolerated Patient Instructions: Urinary Tract Infection in Women (DC), Low Fat Diet (DC), Hypertension (DC), Tachycardia (GEN), Opioid Safety Discharge Attestations Time Spent in Discharge Care*: less than 30 min Status at Discharge: Cognitive status at discharge: cognitively intact , Behavioral status at discharge: cooperative , Quality Metrics Clinical Quality Measures [ No reported AMI, CVA or VTE this stay] Coding Level of Care Code Acute Code for [facility] Fwd Diagnoses Tachyarrhythmia R00.0 Urinary tract infection N30.00 Hematuria presence: without hematuria Urinary tract infection type: acute cystitis Time Spent (min) 15
[2023-10-07 10:47] VITALS: BP 151/85; PULSE 108; RESP 16; TEMP 36.9
--- NOTE | 2023-10-07 11:30 | PC.NURSE ---
Patient discharged to home. Spouse at bedside. Instruction provided regarding follow up appointment, new medications and changes to medications. Patient verbalized complete understanding. Patient taken by personal wheelchair and spouse to private vehicle. Patient denies pain or other needs.
== END 2023-10-07 11:29 | disposition home or self-care (01) | DRG 690 ==
LOC: ER 01:43 → CSU 01:52
PROVIDERS: Admitting Provider Internal Medicine; Emergency Provider Emergency Medicine; PCP Family Medicine; Visit Provider Internal Medicine
DX: N30.00 Acute cystitis without hematuria (principal); I48.20 Chronic atrial fibrillation, unspecified; R00.0 Tachycardia, unspecified; Z95.0 Presence of cardiac pacemaker; I10 Essential (primary) hypertension; E78.5 Hyperlipidemia, unspecified
CPT/HCPCS: 36415; 71045; 80048; 80053; 81001; 83735; 84484; 85025; 93005; 96372; 99285; G0378; J0696; J1644; Q0162

== ENCOUNTER 2023-10-19 13:28 | Emergency (ER) | payer MEDICARE, SELFPAY ==
[2023-10-19 13:41] VITALS: BP 153/89; PULSE 96; RESP 18; TEMP 37.1; O2SAT 94
--- NOTE | 2023-10-19 13:45 | ECG_ITS ---
[facility] Test Date: 2023-10-19 Pat Name: Yadira Krishnan Department: Room: Gender: Female [employer]: : 1940 Requested By: Armando Sommer Order Number: [id number] Heath MD: Cody Muhammad M.D. Measurements Intervals [place] Rate: 98 P: 250 RI: 215 QRS: -79 QRSD: 174 T: 114 QT: 405 QTc: 518 Interpretive Statements ELECTRONIC VENTRICULAR PACEMAKER ABNORMAL RHYTHM ECG Compared to ECG 10/05/2023 06:21:05 No significant changes Electronically Signed On 10-20-2023 8:09:03 CDT by Cody Muhammad M.D. [id number]
[2023-10-19 16:16] VITALS: BP 106/86; PULSE 95; RESP 18; O2SAT 97
--- NOTE | 2023-10-19 16:22 | XRR_ITS ---
PROCEDURE INFORMATION: Exam: XR Chest Exam date and time: 10/19/2023 4:33 PM Age: 82 years old Clinical indication: Other: Tachycardia TECHNIQUE: Imaging protocol: Radiologic exam of the chest. Views: 1 view. COMPARISON: CR (CHEST, ) 10/05/2023 12:56 AM FINDINGS: Lungs: No focal consolidation. Pleural spaces: No evidence of pneumothorax. No evidence of pleural effusion. Heart/Mediastinum: Cardiomediastinal silhouette is within normal limits. Left subclavian approach dual-chamber pacemaker. Bones/joints: No evidence of acute osseous abnormality. XR/XR chest 1V portable [id number] IMPRESSION: 1. No acute cardiopulmonary abnormality.
--- NOTE | 2023-10-19 16:29 | W.ED.ARRPALP ---
HPI - Arrhythmia/Palpitations General: Chief Complaint: Arrhythmia/Palpitations Stated Complaint: Heart running away Time Seen by Provider: 10/19/23 16:09 History of Present Illness: 2-year-old female presents emergency department chief complaint of elevated heart rate patient Dors she just recently had a pacemaker placed in her heart due to sick sinus syndrome as her heart stopped apparently during the workup when she was in her sleep patient reports since that time her heart rate has been intermittently in the low 100s she reports that she started metoprolol however she is concerned it may not be the most appropriate dose when she is unable to contact her blow pit helper as they are out of town. The patient does not endorse having any shortness of breath or chest pain with her elevated heart rate does not endorse any recent swelling in her legs or any other associated symptoms. Patient does not endorse any recent infections or illnesses or any other associated problems patient presents to the ER for further evaluation and management. Associated symptoms: Deny anxiety, nausea, pre-syncope, syncope or vomiting Review of Systems General: Reports: 10 or more systems reviewed and unremarkable except in HPI and below Const: Denies: fever(s), chills, fatigue or malaise Eyes: Denies: change in vision or blurry vision Card: Reports: palpitations; Denies: chest pain, edema, swelling of feet/ankles, lightheadedness, syncope, pre-syncope, dyspnea on exertion, orthopnea or leg pain with exertion Resp: Denies: dyspnea or productive cough GI: Denies: abdominal pain, nausea or vomiting : Denies: flank pain Musc: Denies: extremity pain or extremity swelling Skin/Breast: Denies: rash or pruritus Neuro: Denies: headache(s) Psych: Denies: anxiety or depression Edgar/Lymph: Denies: easy bleeding All/Imm: Denies: urticaria, throat swelling or facial swelling PFSH ED PFSH: Medical History Dyslipidemia Benign essential HTN Lower GI bleed Congestive heart failure Osteoarthritis Aortic valve stenosis Anxiety Bradycardia by electrocardiogram Hypertension Chronic atrial fibrillation Hypercholesteremia Surgical History Hx of cholecystectomy Family History Father CAD (coronary artery disease) Mother Cancer Lung Grandmother Diabetes Denies family history of Clotting disorder Dementia Hyperlipidemia Psychiatric illness Chronic kidney disease (CKD) Suicide Anesthesia complication Bleeding disorder Lung disease Hypertension Stroke Social History Smoking and tobacco/nicotine status: never used tobacco/nicotine Alcohol intake: never Substance/Drug Use: never Physical Exam Const: COMMON NORMALS: no acute distress, patient oriented x3 and healthy appearing HENMT: COMMON NORMALS: normocephalic and atraumatic HEAD & SCALP: normocephalic and atraumatic Eye: COMMON NORMALS: Equal, round and reactive pupils present and EOMs intact bilaterally PUPIL: Yes Equal, round and reactive pupils present Neck/C-Spine: COMMON NORMALS: full ROM, supple and no JVD Lymph: LYMPHATIC: no lymphadenopathy noted Chest: COMMONS NORMALS: normal inspection of the chest and normal palpation of entire chest wall Resp: COMMON NORMALS: normal respiratory effort, No retractions and clear to auscultation bilaterally EFFORT & INSPECTION: Yes able to speak in complete sentences and Yes symmetric chest movement AUSCULTATION: clear to auscultation bilaterally Cardio: COMMON NORMALS: no JVD and regular rhythm; negative for regular rate (Mild rate regular tachycardia appreciated low 100s) RATE: abnormal rate (Mild rate regular tachycardia appreciated low 100s) RHYTHM: regular rhythm GI: COMMON NORMALS: Normal to inspection, nondistended, normoactive bowel sounds present, Soft to palpation and non-tender INSPECTION: Yes normal to inspection PALPATION: Yes Soft to palpation : COMMON NORMALS: Yes no CVA tenderness BLADDER/KIDNEY EXAM: Yes no CVA tenderness Back/Pelvis: COMMON NORMALS: no CVA tenderness Extremity: COMMON NORMALS: normal to inspection and full ROM Neuro: COMMON NORMALS: patient oriented x3, CN's II-XII intact bilaterally, moves all extremities and no focal motor deficits Psych: COMMON NORMALS: mental status grossly normal, Normal thought process present, cooperative and normal affect THOUGHT PROCESS: Normal thought process present Skin: COMMON NORMALS: no rashes or lesions noted GENERAL SKIN EXAM: no rashes or lesions noted Course Vital Signs: Vital signs: Vital Signs Temperature 98.8 F 10/19/23 13:41 Pulse Rate 95 10/19/23 18:00 Respiratory Rate 17 10/19/23 18:00 Blood Pressure 140/75 10/19/23 17:30 Pulse Oximetry 95 10/19/23 18:00 Oxygen Delivery Me thod Room Air 10/19/23 18:00 MDM - Arrhythmia/Palpitations Medical Decision Making Due to patient's symptoms and condition lab work and imaging will be obtained we will continue to follow. Throughout the patient's stay in the emergency department her heart rate never got above 95-100 advised patient this is quite common and normal patient's pacemaker was interrogated that appears to be functioning appropriately with no abnormalities patient's both her cardiac troponins came back with a negative delta in which they were both found to be in the mid 20s which is appears improved from her prior labs. Patient remained asymptomatic reporting no chest pain or shortness of breath affiliated with her reported palpitations patient is stable for discharge home advised that she further contact her blow pit helper for further investigation and management in regards to her medication regimen in which she was advised return the interim if any of her symptoms persist or worse. Lab Data 10/19/23 16:40 10/19/23 16:40 Radiology Impressions Chest X-Ray 10/19/23 16:22 IMPRESSION: 1. No acute cardiopulmonary abnormality. Laboratory Results WBC 6.91 10^3/uL (3.29-11.43) 10/19/23 16:40 RBC 3.56 10^6/uL (3.85-5.65) L 10/19/23 16:40 Hgb 11.30 g/dL (11.27-16.99) 10/19/23 16:40 Hct 36.5 % (36-47) 10/19/23 16:40 MCV 102.5 fl (85-98) H 10/19/23 16:40 MCH 31.7 pg (27-33) 10/19/23 16:40 MCHC 31.0 g/dL (30-55) 10/19/23 16:40 RDW 13.2 % (12.1-15.1) 10/19/23 16:40 Plt Count 146 10^3/cmm (157-399) L 10/19/23 16:40 MPV 9.4 fL (7.4-10.4) 10/19/23 16:40 Neut % (Auto) 59.4 % 10/19/23 16:40 Lymph % (Auto) 26.9 % 10/19/23 16:40 Ashley % (Auto) 8.7 % 10/19/23 16:40 Eos % (Auto) 4.3 % 10/19/23 16:40 Baso % (Auto) 0.3 % 10/19/23 16:40 Neut # (Auto) 4.10 10^3/uL (1.8-7.7) 10/19/23 16:40 Lymph # (Auto) 1.9 10^3/uL (0.8-4.8) 10/19/23 16:40 Ashley # (Auto) 0.6 10^3/uL (0.2-0.9) 10/19/23 16:40 Eos # (Auto) 0.3 10^3/uL (0.0-0.8) 10/19/23 16:40 Baso # (Auto) 0.0 10^3/uL (0.0-0.1) 10/19/23 16:40 Nucleated RBC % (auto) 0 % 10/19/23 16:40 Nucleated RBCs # 0.0 /100WBC 10/19/23 16:40 Sodium 140 mmol/L (136-145) 10/19/23 16:40 Potassium 4.5 mmol/L (3.5-5.1) 10/19/23 16:40 Chloride 103 mmol/L (98-107) 10/19/23 16:40 Carbon Dioxide 29 mmol/L (22-29) 10/19/23 16:40 Anion Gap 12.5 (5-19) 10/19/23 16:40 BUN 18 mg/dL (8-23) 10/19/23 16:40 Creatinine 0.8 mg/dL (0.5-0.9) 10/19/23 16:40 GFR Calculation Not Reportable 10/19/23 16:40 Glucose 118 mg/dL (65-115) H 10/19/23 16:40 Calculated Osmolality 293 mOsm/kg (285-295) 10/19/23 16:40 Calcium 9.5 mg/dL (8.5-10.5) 10/19/23 16:40 Total Bilirubin 0.4 mg/dL (0.15-1.2) 10/19/23 16:40 AST 23 U/L (0-32) 10/19/23 16:40 ALT 14 U/L (0-33) 10/19/23 16:40 Alkaline Phosphatase 120 U/L (35-105) H 10/19/23 16:40 Troponin T Baseline 27 ng/L (0-10) H 10/19/23 16:40 Troponin T 120 Minute 25.16 ng/L (0-10) H 10/19/23 18:26 Delta Troponin T -1.84 ABS# (0-10) L 10/19/23 18:26 C-Reactive Protein 3.0 mg/L (0.0-4.9) 10/19/23 16:40 NT-Pro-B Natriuret Pep 1288 pg/mL (0-450) H 10/19/23 16:40 Total Protein 6.7 g/dL (6.6-8.7) 10/19/23 16:40 Albumin 3.8 g/dL (3.5-5.2) 10/19/23 16:40 Globulin 2.9 g/dL (1.3-4.6) 10/19/23 16:40 All radiology interpretation(s) finalized by discharge Discharge Plan Discharge Patient Disposition: Home Clinical Impression: Pacemaker, History of palpitations Condition: Stable Prescriptions: No Action fexofenadine [Aant Allergy] 60 mg tablet 60 mg PO DAILY atorvastatin 10 mg tablet 10 mg PO DAILY Qty: 90 1RF Patient Comments: Patient states she is not taking this medication 09/28/23 metoprolol tartrate 25 mg tablet 25 mg PO BID@0900,2100 90 Days Qty: 180 3RF tramadol 50 mg tablet 50 mg PO BID PRN (Reason: pain) Qty: 60 5RF prednisolone acetate 1 % drops,suspension 1 drp ophthalmic (eye) BEDTIME red yeast rice 600 mg Capsule 600 mg PO BID Rx Instructions: give with meal/snack propafenone 150 mg tablet 150 mg PO TID furosemide 20 mg tablet 20 mg PO BID PRN (Reason: swelling) montelukast 10 mg tablet 10 mg PO DAILY Discharge Orders: Discharge ED (Routine); Ordered 10/19/23 Ordered By: Collin Verma Referrals: Princess Grande MD [Primary Care Provider] - 1-3 days Discharge Diet: Cardiac Discharge Activity: Increase activity as tolerated Patient Instructions: Heart Palpitations, Pacemaker Activity Restrictions/Additional Instructions: Your lab work and imaging obtained to the emergency department today has come back reassuring, your pacemaker appears to be appropriately working with no abnormalities as per the diagnostic check on it obtained today with no noted or arrhythmias documented on it in which your heart rate is at 95. It is recommended for you to further follow-up with your blow pit helper for further investigation and need for changing your current medication regimen as too high of a dose of your beta-robert could results in worsening of your symptoms. Please return the interim if any of your symptoms persist or worse otherwise further follow-up with cardiology or primary care in 2 to 3 days. Coding Level of Care Code ED Supervisor Hand Silver[employer] for Carlyn Villagomez
[2023-10-19] MEDS: sodium chloride 0.9% 500 ML IV (16:42)
[2023-10-19 16:48] LABS: Basophils % 0.3 %; Eosinophils # 0.3 10^3/uL (0.0-0.8); Eosinophils % 4.3 %; Hematocrit 36.5 % (36-47); Lymphocytes # 1.9 10^3/uL (0.8-4.8); Lymphocytes % 26.9 %; Mean Corpuscular Hemoglobin 31.7 pg (27-33); Mean Corpuscular Volume 102.5 fl (85-98); Mean Platelet Volume 9.4 fL (7.4-10.4); Monocytes # 0.6 10^3/uL (0.2-0.9); Monocytes % 8.7 %; Neutrophils % 59.4 %; Nucleated Red Blood Cells % 0 %; Platelet Count 146 10^3/cmm (157-399); Red Blood Count 3.56 10^6/uL (3.85-5.65); Red Cell Distribution Width 13.2 % (12.1-15.1); White Blood Count 6.91 10^3/uL (3.29-11.43)
--- NOTE | 2023-10-19 16:52 | PC.NURSE ---
[employer] pacemaker interrogation done, data sent
[2023-10-19 17:00] VITALS: BP 132/76; PULSE 93; RESP 16; O2SAT 97
[2023-10-19 17:09] LABS: Troponin(5th) Baseline 27 ng/L (0-10)
[2023-10-19 17:19] LABS: Alanine Aminotransferase 14 U/L (0-33); Albumin Level 3.8 g/dL (3.5-5.2); Alkaline Phosphatase 120 U/L (35-105); Anion Gap 12.5 (5-19); Aspartate Amino Transferase 23 U/L (0-32); Blood Urea Nitrogen 18 mg/dL (8-23); Calcium 9.5 mg/dL (8.5-10.5); Carbon Dioxide 29 mmol/L (22-29); Chloride 103 mmol/L (98-107); Creatinine Clr Calc Pharmacy 58.5771; Globulin 2.9 g/dL (1.3-4.6); Glucose 118 mg/dL (65-115); NT Pro B Type Natriuretic Pept 1288 pg/mL (0-450); Osmolality Calculated 293 mOsm/kg (285-295); Potassium 4.5 mmol/L (3.5-5.1); Sodium 140 mmol/L (136-145); Total Bilirubin 0.4 mg/dL (0.15-1.2); Total Protein 6.7 g/dL (6.6-8.7)
[2023-10-19 17:30] VITALS: BP 140/75; PULSE 94; O2SAT 95
[2023-10-19 18:00] VITALS: PULSE 95; RESP 17; O2SAT 95
--- NOTE | 2023-10-19 18:10 | PC.NURSE ---
Pt refusing to give urine, states there's no point in it, I don't have a UTI
[2023-10-19 18:49] LABS: Troponin 5 2HR 25.16 ng/L (0-10); Troponin 5 2HR Delta -1.84 ABS# (0-10)
[2023-10-19 19:17] VITALS: PULSE 94; RESP 16; O2SAT 98
== END 2023-10-19 19:20 | disposition home or self-care (01) ==
PROVIDERS: Emergency Provider Emergency Medicine; PCP Family Medicine
DX: R00.2 Palpitations (principal); Z95.0 Presence of cardiac pacemaker; E78.5 Hyperlipidemia, unspecified; I11.0 Hypertensive heart disease with heart failure; I50.9 Heart failure, unspecified
CPT/HCPCS: 36415; 71045; 80053; 83880; 84484; 85025; 86140; 93005; 96360; 99285; J7040

== ENCOUNTER → 2023-12-10 11:42 | Outpatient (BNVA) | payer MEDICARE, SELFPAY | PROVIDERS: PCP Family Medicine; Visit Provider Nurse Practitioner Family | DX: I48.20 Chronic atrial fibrillation, unspecified (principal) | CPT/HCPCS: 93005; 99214 ==

== ENCOUNTER → 2024-01-07 14:23 | Outpatient (BNVA) | payer MEDICARE, SELFPAY | PROVIDERS: PCP Family Medicine; Visit Provider Family Medicine | DX: I10 Essential (primary) hypertension (principal); I50.41 Acute combined systolic (congestive) and diastolic (congestive) heart failure; E78.2 Mixed hyperlipidemia; I48.0 Paroxysmal atrial fibrillation | CPT/HCPCS: 80053; 80061; 83880; 85025 ==

== ENCOUNTER 2024-02-07 12:50 | Oncology outpatient (recurring) (ONCR) | payer MEDICARE, SELFPAY ==
[2024-02-07 13:13] LABS: Basophils % 0.1 %; Eosinophils # 0.2 10^3/uL (0.0-0.8); Eosinophils % 2.3 %; Lymphocytes % 21.1 %; Mean Corpuscular HGB Conc 30.5 g/dL (30-55); Mean Corpuscular Hemoglobin 29.8 pg (27-33); Mean Corpuscular Volume 97.6 fl (85-98); Mean Platelet Volume 9.2 fL (7.4-10.4); Monocytes # 0.6 10^3/uL (0.2-0.9); Monocytes % 6.8 %; Neutrophils # 6.52 10^3/uL (1.8-7.7); Neutrophils % 69.1 %; Nucleated Red Blood Cells % 0 %; Platelet Count 187 10^3/cmm (157-399); Red Blood Count 3.79 10^6/uL (3.85-5.65); Red Cell Distribution Width 16.3 % (12.1-15.1); White Blood Count 9.44 10^3/uL (3.29-11.43)
[2024-02-07 13:44] LABS: Carcinoembryonic Antigen 4.1 ng/mL (0.0-4.7)
[2024-02-07 13:55] LABS: Alanine Aminotransferase 46 U/L (0-33); Albumin Level 3.6 g/dL (3.5-5.2); Alkaline Phosphatase 96 U/L (35-105); Anion Gap 11.7 (5-19); Aspartate Amino Transferase 36 U/L (0-32); Blood Urea Nitrogen 20 mg/dL (8-23); Calcium 8.8 mg/dL (8.5-10.5); Carbon Dioxide 31 mmol/L (22-29); Chloride 99 mmol/L (98-107); Creatinine Clr Calc Pharmacy 57.5311; Globulin 2.5 g/dL (1.3-4.6); Glucose 97 mg/dL (65-115); Osmolality Calculated 289 mOsm/kg (285-295); Potassium 3.7 mmol/L (3.5-5.1); Sodium 138 mmol/L (136-145); Total Bilirubin 0.5 mg/dL (0.15-1.2); Total Protein 6.1 g/dL (6.6-8.7)
== END 2024-02-28 23:59 | disposition home or self-care (01) ==
PROVIDERS: Nurse Practitioner Family; PCP Family Medicine; Visit Provider Internal Medicine Medical Oncology
DX: C18.9 Malignant neoplasm of colon, unspecified (principal); Z79.899 Other long term (current) drug therapy
CPT/HCPCS: 36415; 80053; 82378; 85025; 99214

== ENCOUNTER 2024-02-14 14:36 | Emergency (ER) | payer MEDICARE, OTHER, SELFPAY ==
[2024-02-14 15:15] VITALS: BP 160/86; PULSE 67; RESP 16; TEMP 36.8; O2SAT 95; BMI 41.1
[2024-02-14 16:29] LABS: Basophils % 0.3 %; Eosinophils # 0.1 10^3/uL (0.0-0.8); Eosinophils % 2.2 %; Hematocrit 34.9 % (36-47); Lymphocytes # 1.6 10^3/uL (0.8-4.8); Lymphocytes % 26.1 %; Mean Corpuscular HGB Conc 29.8 g/dL (30-55); Mean Corpuscular Volume 100.6 fl (85-98); Mean Platelet Volume 10.1 fL (7.4-10.4); Monocytes # 0.6 10^3/uL (0.2-0.9); Monocytes % 9.9 %; Neutrophils # 3.66 10^3/uL (1.8-7.7); Neutrophils % 61.3 %; Nucleated Red Blood Cells % 0 %; Platelet Count 143 10^3/cmm (157-399); Red Blood Count 3.47 10^6/uL (3.85-5.65); Red Cell Distribution Width 17.4 % (12.1-15.1); White Blood Count 5.97 10^3/uL (3.29-11.43)
[2024-02-14 16:55] LABS: Alanine Aminotransferase 20 U/L (0-33); Albumin Level 3.7 g/dL (3.5-5.2); Alkaline Phosphatase 110 U/L (35-105); Anion Gap 13.1 (5-19); Aspartate Amino Transferase 20 U/L (0-32); Blood Urea Nitrogen 19 mg/dL (8-23); Calcium 9.4 mg/dL (8.5-10.5); Carbon Dioxide 28 mmol/L (22-29); Chloride 103 mmol/L (98-107); Creatinine Clr Calc Pharmacy 57.5311; Globulin 2.8 g/dL (1.3-4.6); Glucose 103 mg/dL (65-115); Lipase 27 U/L (13-60); Osmolality Calculated 293 mOsm/kg (285-295); Potassium 4.1 mmol/L (3.5-5.1); Sodium 140 mmol/L (136-145); Total Bilirubin 0.5 mg/dL (0.15-1.2); Total Protein 6.5 g/dL (6.6-8.7)
[2024-02-14 17:28] LABS: INR 1.13 (0.8-1.2)
--- NOTE | 2024-02-14 19:09 | ED_ITS ---
HPI - GI Bleed 2 General: Chief complaint: GI Bleed Stated complaint: rectal bleeding Time Seen by Provider: 02/14/24 19:06 History of Present Illness: 83-year-old female who presents to the e mergency room with bright red blood per rectum whenever she has stools. She says she has a history of colon cancer in the past. She had surgery in [place]. Her vitals are normal. She is not feeling weak or dizzy. No abdominal pain. Related Data Home Medications Medication Instructions Recorded Confirmed prednisolone acetate 1 % eye 1 drp ophthalmic (eye) BEDTIME 10/28/20 02/07/24 drops,suspension fexofenadine 60 mg tablet (Anat 60 mg PO DAILY 08/20/23 02/07/24 Allergy) red yeast rice 600 mg capsule 600 mg PO BID 09/13/23 02/07/24 montelukast 10 mg tablet 10 mg PO DAILY 10/03/23 02/07/24 metoprolol tartrate 25 mg tablet 25 mg PO .AM and prn 12/24/23 02/07/24 Previous Rx's Medication Instructions Recorded tramadol 50 mg tablet 50 mg PO BID PRN pain #60 tabs 10/11/23 triamcinolone acetonide 0.1 % 1 applic topical TID PRN pruritis 11/20/23 topical cream #80 grams diltiazem HCl 60 mg tablet 60 mg PO TID 90 days #270 tabs 12/04/23 furosemide 20 mg tablet See Rx Instructions .Route 01/01/24 .COMPLEX #180 tabs fluticasone propionate 50 1 spray intranasal DAILY PRN nasal 01/24/24 mcg/actuation nasal congestion #16 mL spray,suspension (Allergy Relief (fluticasone)) amoxicillin 875 mg-potassium 1 tab PO BID #20 tabs 01/28/24 clavulanate 125 mg tablet prednisone 20 mg tablet 20 mg PO .COMPLEX #20 tabs 01/30/24 Allergies Allergy/AdvReac Type Severity Reaction Status Date / Time codeine Allergy ALGY-Difficulty Verified 02/14/24 15:14 [From [employer] with Codeine] Breathing pseudoephedrine Allergy ALGY-Difficulty Verified 02/14/24 15:14 [From Sudafed] Breathing issa AdvReac Unknown hives Verified 02/14/24 15:14 Review of Systems 2 Narrative: Constitutional symptoms: Negative except as documented in HPI. Skin symptoms: Negative except as documented in HPI. Eye symptoms: Negative except as documented in HPI. ENMT symptoms: Negative except as documented in HPI. Respiratory symptoms: Negative except as documented in HPI. Cardiovascular symptoms: Negative except as documented in HPI. Gastrointestinal symptoms: Negative except as documented in HPI. Genitourinary symptoms: Negative except as documented in HPI. Musculoskeletal symptoms: Negative except as documented in HPI. Neurologic symptoms: Negative except as documented in HPI. Psychiatric symptoms: Negative except as documented in HPI. Endocrine symptoms: Negative except as documented in HPI. PFSH ED 2 PFSH: Medical History Dyslipidemia Benign essential HTN Lower GI bleed History of 2019 novel coronavirus disease (COVID-19) Sick sinus syndrome Varicose veins of bilateral lower extremities with pain CHF (congestive heart failure) last echocardiogram 11/2016, LVEF 65%, no valvular abnormality. Hyperlipidemia HTN (hypertension) Congestive heart failure Osteoarthritis Aortic valve stenosis Anxiety Bradycardia by electrocardiogram Hypertension Chronic atrial fibrillation Hypercholesteremia Surgical History S/P placement of cardiac pacemaker History of total right knee replacement Hx of cataract extraction Status post ablation of incompetent vein using laser H/O knee surgery Hx of cholecystectomy Hx of cholecystectomy Family History Father CAD (coronary artery disease) Mother Cancer Lung Grandmother Diabetes Denies family history of Clotting disorder Dementia Hyperlipidemia Psychiatric illness Chronic kidney disease (CKD) Suicide Anesthesia complication Bleeding disorder Lung disease Hypertension Stroke Social History Smoking and tobacco/nicotine status: never used tobacco/nicotine Alcohol intake: never Substance/Drug Use: never Physical Exam 2 Narrative: EXAM NARRATIVE: General: Alert, no acute distress. Skin: Warm, dry. Head: Normocephalic, atraumatic. Neck: Supple, trachea midline. Eye: Extraocular movements are intact. Ears, nose, mouth and throat: mucosa moist. Cardiovascular: Regular, Normal peripheral perfusion. Respiratory: Lungs are clear to auscultation, respirations are non-labored, breath sounds are equal, Symmetrical chest wall expansion. Gastrointestinal: Soft, Nontender, Non distended Musculoskeletal: Normal ROM, no deformity. Neurological: Alert and oriented, No focal neurological deficit observed. Psychiatric: Cooperative, appropriate mood & affect. Course 2 Vital Signs: Vital signs: Vital Signs Temperature 98.3 F 02/14/24 15:15 Pulse Rate 67 02/14/24 15:15 Respiratory Rate 16 02/14/24 15:15 Blood Pressure 160/86 02/14/24 15:15 Pulse Oximetry 95 02/14/24 15:15 MDM - GI Bleed Medical Decision Making Medical decision making: Differential diagnosis including but not limited to and based on the above HPI, review of systems and physical exam: In a patient with bright red blood per rectum would have concern for anemia primarily. Likely hemorrhoid or diverticular bleed. We also discussed that if she has concern for recurrence of cancer she needs to go see gastroenterology or surgeon that can do colonoscopy. Orders placed to evaluate differential diagnosis based on the above differential, HPI and physical exam Lab Review: Laboratory results were reviewed and interpreted by myself the emergency room physician. Hemoglobin is stable at 10.4. No renal failure. I reviewed the patient's medical record. Assessment and plan: Lower GI bleeding - Discharged home - Discussed plan with patient. Answered any questions. - Evaluation and treatment of this problem were appropriate in the emergency setting. Lab Data 02/14/24 16:09 02/14/24 16:09 Laboratory Results WBC 5.97 10^3/uL (3.29-11.43) 02/14/24 16:09 RBC 3.47 10^6/uL (3.85-5.65) L 02/14/24 16:09 Hgb 10.40 g/dL (11.27-16.99) L 02/14/24 16:09 Hct 34.9 % (36-47) L 02/14/24 16:09 MCV 100.6 fl (85-98) H 02/14/24 16:09 MCH 30.0 pg (27-33) 02/14/24 16:09 MCHC 29.8 g/dL (30-55) L 02/14/24 16:09 RDW 17.4 % (12.1-15.1) H 02/14/24 16:09 Plt Count 143 10^3/cmm (157-399) L 02/14/24 16:09 MPV 10.1 fL (7.4-10.4) 02/14/24 16:09 Neut % (Auto) 61.3 % 02/14/24 16:09 Lymph % (Auto) 26.1 % 02/14/24 16:09 Bonner % (Auto) 9.9 % 02/14/24 16:09 Eos % (Auto) 2.2 % 02/14/24 16:09 Baso % (Auto) 0.3 % 02/14/24 16:09 Neut # (Auto) 3.66 10^3/uL (1.8-7.7) 02/14/24 16:09 Lymph # (Auto) 1.6 10^3/uL (0.8-4.8) 02/14/24 16:09 Bonner # (Auto) 0.6 10^3/uL (0.2-0.9) 02/14/24 16:09 Eos # (Auto) 0.1 10^3/uL (0.0-0.8) 02/14/24 16:09 Baso # (Auto) 0.0 10^3/uL (0.0-0.1) 02/14/24 16:09 Nucleated RBC % (auto) 0 % 02/14/24 16:09 Nucleated RBCs # 0.0 /100WBC 02/14/24 16:09 PT 14.80 SECONDS (12.1-14.9) 02/14/24 16:09 INR 1.13 (0.8-1.2) 02/14/24 16:09 Sodium 140 mmol/L (136-145) 02/14/24 16:09 Potassium 4.1 mmol/L (3.5-5.1) 02/14/24 16:09 Chloride 103 mmol/L (98-107) 02/14/24 16:09 Carbon Dioxide 28 mmol/L (22-29) 02/14/24 16:09 Anion Gap 13.1 (5-19) 02/14/24 16:09 BUN 19 mg/dL (8-23) 02/14/24 16:09 Creatinine 0.8 mg/dL (0.5-0.9) 02/14/24 16:09 GFR Calculation Not Reportable 02/14/24 16:09 Glucose 103 mg/dL (65-115) 02/14/24 16:09 Calculated Osmolality 293 mOsm/kg (285-295) 02/14/24 16:09 Calcium 9.4 mg/dL (8.5-10.5) 02/14/24 16:09 Total Bilirubin 0.5 mg/dL (0.15-1.2) 02/14/24 16:09 AST 20 U/L (0-32) 02/14/24 16:09 ALT 20 U/L (0-33) 02/14/24 16:09 Alkaline Phosphatase 110 U/L (35-105) H 02/14/24 16:09 Total Protein 6.5 g/dL (6.6-8.7) L 02/14/24 16:09 Albumin 3.7 g/dL (3.5-5.2) 02/14/24 16:09 Globulin 2.8 g/dL (1.3-4.6) 02/14/24 16:09 Lipase 27 U/L (13-60) 02/14/24 16:09 No radiology studies performed this visit Discharge Plan Discharge Patient Disposition: Home Clinical Impression: Hematochezia Condition: Stable Prescriptions: No Action fluticasone propionate [Allergy Relief (fluticasone)] 50 mcg/actuation spray,suspension 1 spray intranasal DAILY PRN (Reason: nasal congestion) Qty: 16 0RF Rx Instructions: administer into each nostril albuterol sulfate 2.5 mg/0.5 mL solution for nebulization 2.5 mg inhalation ONCE Qty: 1 0RF amoxicillin-pot clavulanate 875-125 mg tablet 1 tab PO BID Qty: 20 0RF fexofenadine [Anat Allergy] 60 mg tablet 60 mg PO DAILY metoprolol tartrate 25 mg tablet 25 mg PO .AM and prn tramadol 50 mg tablet 50 mg PO BID PRN (Reason: pain) Qty: 60 5RF triamcinolone acetonide 0.1 % cream 1 applic topical TID PRN (Reason: pruritis) Qty: 80 2RF diltiazem HCl 60 mg tablet 60 mg PO TID 90 Days Qty: 270 3RF furosemide 20 mg tablet See Rx Instructions .ROUTE .COMPLEX Qty: 180 0RF Dose Instruction: TAKE 1 TABLET BY MOUTH TWICE DAILY NEEDED FOR SWELLING Rx Instructions: TAKE 1 TABLET BY MOUTH TWICE DAILY NEEDED FOR SWELLING prednisone 20 mg tablet 20 mg PO .COMPLEX Qty: 20 0RF Rx Instructions: 4 tabs day 1, decrease by one half tablet daily until gone. prednisolone acetate 1 % drops,suspension 1 drp ophthalmic (eye) BEDTIME red yeast rice 600 mg Capsule 600 mg PO BID Rx Instructions: give with meal/snack montelukast 10 mg tablet 10 mg PO DAILY Discharge Orders: Discharge ED (Routine); Ordered 02/14/24 Ordered By: Isis Aviles Referrals: Clive Torres DO [Physician] - 4-7 days (Please call for follow-up appointment with Dr. Torres or with surgeon of your choosing.) Princess Grande MD [Primary Care Provider] - Discharge Diet: Usual diet Discharge Activity: Increase activity as tolerated Patient Instructions: Rectal Bleeding (ED) Activity Restrictions/Additional Instructions: Thank you for choosing [facility] for your healthcare needs today. Please realize this is an emergency room and that we are providing you with a medical screening exam and this may not be complete and all inclusive of all the testing and or work up that you may need to determine your ailment or severity of your illness. You have been screened and evaluated and felt safe for discharge. Health conditions do change or evolve sometimes and as such it is important that you follow up with your Primary Doctor to be re checked, 3-5 days is a general good time frame for follow up. You are always welcome to return to the ED for re assessment if your symptoms are worsening or you have new concerns Coding Level of Care Code ED New Accounts Representative for Carlyn Villagomez
[2024-02-14 19:14] VITALS: BP 188/96; PULSE 60; O2SAT 96
[2024-02-14 19:22] VITALS: BP 188/96; PULSE 60; O2SAT 96
== END 2024-02-14 19:24 | disposition home or self-care (01) ==
PROVIDERS: Emergency Medicine; Emergency Provider Emergency Medicine; PCP Family Medicine
DX: K92.1 Melena (principal); Z95.0 Presence of cardiac pacemaker; E78.5 Hyperlipidemia, unspecified; I11.0 Hypertensive heart disease with heart failure; I50.9 Heart failure, unspecified
CPT/HCPCS: 36415; 80053; 83690; 85025; 85610; 99283

== ENCOUNTER → 2024-02-28 09:14 | Outpatient (BNVA) | payer MEDICARE, OTHER, SELFPAY | PROVIDERS: PCP Family Medicine; Referring Provider Family Medicine; Visit Provider Student in an Organized Health Care Education/Training Program | DX: K92.2 Gastrointestinal hemorrhage, unspecified (principal) | CPT/HCPCS: 99204; 99214 ==

== ENCOUNTER 2024-03-04 10:08 | Day surgery (SDC) | payer MEDICARE, OTHER, SELFPAY ==
[2024-03-04 10:51] VITALS: BP 168/62; PULSE 65; RESP 18; TEMP 36.7; O2SAT 94
[2024-03-04] MEDS: sodium chloride 0.9% 1,000 ML 30 ML IV (10:52)
--- NOTE | 2024-03-04 10:57 | W.PM.OPSUD ---
Surgery/Procedure H&P Update DATE OF PROCEDURE: March 04, 2024 DATE H&P PERFORMED: 02/28/24 H&P UPDATE INFORMATION: I have reviewed H&P completed within last 30 days, I have examined patient prior to procedure and No changes to prior documentation PLANNED PROCEDURE: Operation Date: 03/04/24 11:15 Proposed Procedures p EGD(Not Applicable) - Heron Sánchez MD s Colonoscopy - [id number],k92.2(Not Applicable) - Heron Sánchez MD
--- NOTE | 2024-03-04 12:08 | ANES.PREANE2 ---
Pre-Anesthetic Assessment Height/Weight: Height 1.57 m Weight 102.058 kg Temp Pulse Resp BP Pulse Ox O2 Del Method 98.0 F 65 18 168/62 94 Room Air 03/04/24 10:51 03/04/24 10:51 03/04/24 10:51 03/04/24 10:51 03/04/24 10:51 03/04/24 10:51 Operation Date: 03/04/24 11:15 Proposed Procedures p EGD(Not Applicable) - Heron Sánchez MD s Colonoscopy - [id number],g0105,k92.2(Not Applicable) - Heron Sánchez MD Familial anesthetic complications: none Was Beta Karen taken within 24 hours: N/A Was Clonidine taken within 24 hours: N/A Last intake: Intake Last Liquid Date 03/03/24 Last Liquid Time 23:00 Last Solid Date 03/02/24 Last Solid Time 17:00 Social No alcohol and No tobacco Exam alert and oriented x 3 Airway Submandibular: within normal limits Cervical ROM: within normal limits Mallampati: Class III Dentition: false History/ROS No significant history except as noted Pulmonary None reported CV/HEM Atrial Fibrillation, Arrythmia, Congestive Heart Failure, Hypertension and Peripheral Vascular Disease pacemaker None reported Hepatic None reported GI None reported colon cancer- right hemicolectomy 04/2022 Metabolic Hyperlipidemia and Morbid Obesity [facility] None reported Neuropsych None reported Anesthetic Plan ASA status: 3 Anesthesia: Anesthesia Evaluation, General and MAC Medications/Allergies Home Medications Medication Instructions Recorded Confirmed Last Taken Type prednisolone acetate 1 % eye 1 drp ophthalmic (eye) BEDTIME 10/28/20 03/03/24 03/03/24 History drops,suspension fexofenadine 60 mg tablet (Anat 60 mg PO DAILY 08/20/23 03/03/24 03/03/24 History Allergy) red yeast rice 600 mg capsule 600 mg PO BID 09/13/23 03/03/24 03/03/24 History montelukast 10 mg tablet 10 mg PO DAILY 10/03/23 03/03/24 03/03/24 History tramadol 50 mg tablet 50 mg PO BID PRN pain #60 tabs 10/11/23 03/03/24 03/03/24 Rx triamcinolone acetonide 0.1 % 1 applic topical TID PRN pruritis 11/20/23 03/03/24 03/03/24 Rx topical cream #80 grams diltiazem HCl 60 mg tablet 60 mg PO TID 90 days #270 tabs 12/04/23 03/03/24 03/03/24 Rx metoprolol tartrate 25 mg tablet 25 mg PO .AM and prn 12/24/23 03/03/24 03/03/24 History furosemide 20 mg tablet 20 mg PO BID PRN swelling 03/03/24 03/03/24 03/03/24 History Allergies Allergy/AdvReac Type Severity Reaction Status Date / Time codeine Allergy ALGY-Difficulty Verified 03/03/24 09:57 [From Capital with Codeine] Breathing pseudoephedrine Allergy ALGY-Difficulty Verified 03/03/24 09:57 [From Sudafed] Breathing issa AdvReac Unknown hives Verified 03/03/24 09:57 Current Medications Generic Name Dose Route Start Last Admin Trade Name Freq PRN Reason Stop Dose Admin Sodium Chloride 1,000 mls @ 30 mls/hr 03/04/24 10:45 03/04/24 10:52 Sodium Chloride 0.9% IV 30 mls/hr .Q24H LAMONT Administration PFSH Anesthesia Medical History (Updated 02/28/24 @ 10:00 by Heron Sánchez MD) Dyslipidemia Benign essential HTN Lower GI bleed History of 2019 novel coronavirus disease (COVID-19) Sick sinus syndrome Varicose veins of bilateral lower extremities with pain CHF (congestive heart failure) last echocardiogram 11/2016, LVEF 65%, no valvular abnormality. Hyperlipidemia HTN (hypertension) Congestive heart failure Osteoarthritis Aortic valve stenosis Anxiety Bradycardia by electrocardiogram Hypertension Chronic atrial fibrillation Hypercholesteremia Surgical History (Updated 02/28/24 @ 09:44 by Heron Sánchez MD) S/P placement of cardiac pacemaker Hx of cataract extraction Hx of cholecystectomy Hx of cholecystectomy Family History Father CAD (coronary artery disease) Mother Cancer Lung Grandmother Diabetes Denies family history of Clotting disorder Dementia Hyperlipidemia Psychiatric illness Chronic kidney disease (CKD) Suicide Anesthesia complication Bleeding disorder Lung disease Hypertension Stroke Social History Smoking and tobacco/nicotine status: never used tobacco/nicotine Alcohol intake: never Substance/Drug Use: never Data Anesthesia Cardiac Studies: Echocardiogram 03/12/22 Sestamibi Stress Test (Cardiology) 04/12/22 Cardiac Event Monitor 06/26/23 Holter Monitor 06/14/21
[2024-03-04 12:18] VITALS: BP 119/50; PULSE 60; RESP 18; TEMP 36.1; O2SAT 95
--- NOTE | 2024-03-04 12:19 | ANE.PACU2 ---
Inpatient post-anesthesia follow up: Airway intact: Yes Vital signs: Temperature 98.0 F Pulse Rate 65 Respiratory Rate 18 Blood Pressure 168/62 Pulse Oximetry 94 Oxygen Delivery Me thod Room Air Oxygen Flow Rate Fraction of Inspir ed Oxygen Hydration adequate: Yes Nausea and vomiting: No Pain level: 1 Mental status: Baseline
[2024-03-04 12:32] VITALS: BP 133/72; PULSE 60; RESP 18; O2SAT 94
== END 2024-03-04 12:55 | disposition home or self-care (01) ==
PROVIDERS: PCP Family Medicine; Visit Provider Student in an Organized Health Care Education/Training Program
PROC: 0DJ08ZZ Inspection of Upper Intestinal Tract, Via Natural or Artificial Opening Endoscopic (ICD-10-PCS; CPT 43235; principal; 2024-03-04 11:15)
PROC: 0DJD8ZZ Inspection of Lower Intestinal Tract, Via Natural or Artificial Opening Endoscopic (ICD-10-PCS; CPT 45378; 2024-03-04 11:15)
DX: K92.2 Gastrointestinal hemorrhage, unspecified (principal); K57.30 Diverticulosis of large intestine without perforation or abscess without bleeding; K64.3 Fourth degree hemorrhoids; D12.5 Benign neoplasm of sigmoid colon; I48.91 Unspecified atrial fibrillation; I11.0 Hypertensive heart disease with heart failure; Z95.0 Presence of cardiac pacemaker; E66.01 Morbid (severe) obesity due to excess calories; Z68.41 Body mass index [BMI] 40.0-44.9, adult; Z85.038 Personal history of other malignant neoplasm of large intestine; Z90.49 Acquired absence of other specified parts of digestive tract; E78.5 Hyperlipidemia, unspecified
CPT/HCPCS: 43239; 45380; 45385; 88305; J2704; J7030

== ENCOUNTER → 2024-03-05 09:41 | Outpatient (BNVA) | payer MEDICARE, OTHER, SELFPAY | PROVIDERS: PCP Family Medicine; Visit Provider Internal Medicine Cardiovascular Disease | DX: Z45.010 Encounter for checking and testing of cardiac pacemaker pulse generator [battery] (principal) | CPT/HCPCS: 93296 ==

== ENCOUNTER → 2024-03-20 10:40 | Outpatient (BNVA) | payer MEDICARE, OTHER, SELFPAY | PROVIDERS: PCP Family Medicine; Visit Provider Student in an Organized Health Care Education/Training Program | DX: Z09 Encounter for follow-up examination after completed treatment for conditions other than malignant neoplasm (principal) | CPT/HCPCS: 99214 ==

== ENCOUNTER 2024-03-21 01:17 | Emergency (ER) | payer MEDICARE, OTHER, SELFPAY ==
[2024-03-21] VITALS (34 sets, daily range): BP systolic 107–156; BP diastolic 68–106; PULSE 99–121; RESP 13–26; TEMP 36.6; O2SAT 89–95; BMI 51.2
--- NOTE | 2024-03-21 01:19 | ECG_ITS ---
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 [email or web address]
--- NOTE | 2024-03-21 01:28 | XRR_ITS ---
PROCEDURE INFORMATION: Exam: XR Chest Exam date and time: 03/21/2024 1:37 AM Age: 83 years old Clinical indication: Other: Tachycardia; Prior surgery; Surgery date: 6+ months; Surgery type: Pacemaker placed October 01, 2023 TECHNIQUE: Imaging protocol: Radiologic exam of the chest. Views: 1 view. COMPARISON: CR XR chest 1V portable [id number] 10/19/2023 4:33 PM FINDINGS: Lungs: Unremarkable. No consolidation. Pleural spaces: Unremarkable. No pleural effusion. No pneumothorax. Heart/Mediastinum: A dual lead cardiac conduction assist device is present with its leads terminating at the right atrium and right ventricle. Stable cardiomegaly. Bones/joints: Unremarkable. XR/XR chest 1V portable [id number] IMPRESSION: Stable cardiomegaly. No acute process
--- NOTE | 2024-03-21 01:30 | ED_ITS ---
HPI - Arrhythmia/Palpitations 2 General: Chief Complaint: Arrhythmia/Palpitations Stated Complaint: Heart Racing Time Seen by Provider: 03/21/24 01:19 History of Present Illness: Patient presents to the ER with complaints of palpitations for last 3 days. She has her heart developed is been racing at times with beats of upwards of 110 beats a minute and then will drop down and go slow at times. Patient states her normal heart rate is in the upper 90s. Patient does have pacemaker. 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 Related Data Home Medications Medication Instructions Recorded Confirmed prednisolone acetate 1 % eye 1 drp ophthalmic (eye) BEDTIME 10/28/20 03/20/24 drops,suspension fexofenadine 60 mg tablet (Anat 60 mg PO DAILY 08/20/23 03/20/24 Allergy) red yeast rice 600 mg capsule 600 mg PO BID 09/13/23 03/20/24 montelukast 10 mg tablet 10 mg PO DAILY 10/03/23 03/20/24 metoprolol tartrate 25 mg tablet 25 mg PO .AM and prn 12/24/23 03/20/24 furosemide 20 mg tablet 20 mg PO BID PRN swelling 03/03/24 03/20/24 Previous Rx's Medication Instructions Recorded tramadol 50 mg tablet 50 mg PO BID PRN pain #60 tabs 10/11/23 triamcinolone acetonide 0.1 % 1 applic topical TID PRN pruritis 11/20/23 topical cream #80 grams diltiazem HCl 60 mg tablet 60 mg PO TID 90 days #270 tabs 12/04/23 Allergies Allergy/AdvReac Type Severity Reaction Status Date / Time codeine Allergy ALGY-Difficulty Verified 03/20/24 11:05 [From [employer] with Codeine] Breathing pseudoephedrine Allergy ALGY-Difficulty Verified 03/20/24 11:05 [From Sudafed] Breathing issa AdvReac Unknown hives Verified 03/20/24 11:05 Review of Systems 2 General: Reports: 10 or more systems reviewed and unremarkable except in HPI and below PFSH ED 2 PFSH: Medical History Dyslipidemia Benign essential HTN Lower GI bleed History of 2019 novel coronavirus disease (COVID-19) Sick sinus syndrome Varicose veins of bilateral lower extremities with pain CHF (congestive heart failure) last echocardiogram 11/2016, LVEF 65%, no valvular abnormality. Hyperlipidemia HTN (hypertension) Congestive heart failure Osteoarthritis Aortic valve stenosis Anxiety Bradycardia by electrocardiogram Hypertension Chronic atrial fibrillation Hypercholesteremia Surgical History S/P placement of cardiac pacemaker Hx of cataract extraction Hx of cholecystectomy Hx of cholecystectomy Family History Father CAD (coronary artery disease) Mother Cancer Lung Grandmother Diabetes Denies family history of Clotting disorder Dementia Hyperlipidemia Psychiatric illness Chronic kidney disease (CKD) Suicide Anesthesia complication Bleeding disorder Lung disease Hypertension Stroke Social History Smoking and tobacco/nicotine status: never used tobacco/nicotine Alcohol intake: never Substance/Drug Use: never Physical Exam 2 Const: COMMON NORMALS: no acute distress, average body habitus, patient oriented x3, no limitations, healthy appearing, alert and well nourished HENMT: COMMON NORMALS: normocephalic, atraumatic, hearing grossly normal bilaterally, external ears normal, Normal external nose present and moist oral mucous membranes HEAD & SCALP: normocephalic and atraumatic NOSE: Normal external nose present EXTERNAL EAR: Yes external ears normal Neck/C-Spine: COMMON NORMALS: no JVD Chest: COMMONS NORMALS: normal inspection of the chest and normal palpation of entire chest wall Resp: COMMON NORMALS: normal respiratory effort, No retractions, No use of accessory muscles and clear to auscultation bilaterally AUSCULTATION: clear to auscultation bilaterally Cardio: COMMON NORMALS: no JVD, regular rate, regular rhythm, S1 normal heart sound present, S2 normal heart sound present, No gallops present (Cardio), No clicks present (Cardio), No murmurs present (Cardio) and No rub (Cardio) R ATE: regular rate RHYTHM: regular rhythm HEART SOUNDS: S1 normal heart sound present and S2 normal heart sound present GI: COMMON NORMALS: Normal to inspection, nondistended, normoactive bowel sounds present, Soft to palpation, non-tender, No hepatosplenomegaly present and no masses PALPATION: Yes Soft to palpation and Yes No hepatosplenomegaly present Neuro: COMMON NORMALS: patient oriented x3 SENSORIUM/ORIENTATION: Yes alert Course 2 Vital Signs: Vital signs: Vital Signs Temperature 98 F 03/21/24 01:23 Pulse Rate 100 03/21/24 03:25 Respiratory Rate 16 03/21/24 03:25 Blood Pressure 113/85 03/21/24 03:25 Pulse Oximetry 93 03/21/24 03:25 MDM - Arrhythmia/Palpitations Medical Decision Making Lab work was obtained included CBC CMP cardiac enzymes, chest x-ray, all of which was essentially benign except for hemoglobin of 9.6 troponin baseline at 25, 2-hour troponin 23.6 for delta of -1.3, this just was discussed with the patient patient be discharged home. Medical Records I reviewed the patient's medical records. Lab Data I reviewed the patient's lab results. 03/21/24 01:32 03/21/24 01:32 Radiology Impressions Chest X-Ray 03/21/24 01:28 IMPRESSION: Stable cardiomegaly. No acute process Laboratory Results WBC 5.96 10^3/uL (3.29-11.43) 03/21/24 01:32 RBC 3.35 10^6/uL (3.85-5.65) L 03/21/24 01:32 Hgb 9.60 g/dL (11.27-16.99) L 03/21/24 01:32 Hct 32.4 % (36-47) L 03/21/24 01:32 MCV 96.7 fl (85-98) 03/21/24 01:32 MCH 28.7 pg (27-33) 03/21/24 01:32 MCHC 29.6 g/dL (30-55) L 03/21/24 01:32 RDW 16.1 % (12.1-15.1) H 03/21/24 01:32 Plt Count 207 10^3/cmm (157-399) 03/21/24 01:32 MPV 9.8 fL (7.4-10.4) 03/21/24 01:32 Neut % (Auto) 55.2 % 03/21/24 01:32 Lymph % (Auto) 29.5 % 03/21/24 01:32 [place] % (Auto) 9.6 % 03/21/24 01:32 Eos % (Auto) 5.0 % 03/21/24 01:32 Baso % (Auto) 0.5 % 03/21/24 01:32 Neut # (Auto) 3.29 10^3/uL (1.8-7.7) 03/21/24 01:32 Lymph # (Auto) 1.8 10^3/uL (0.8-4.8) 03/21/24 01:32 [place] # (Auto) 0.6 10^3/uL (0.2-0.9) 03/21/24 01:32 Eos # (Auto) 0.3 10^3/uL (0.0-0.8) 03/21/24 01:32 Baso # (Auto) 0.0 10^3/uL (0.0-0.1) 03/21/24 01:32 Nucleated RBC % (auto) 0 % 03/21/24 01:32 Nucleated RBCs # 0.0 /100WBC 03/21/24 01:32 Sodium 139 mmol/L (136-145) 03/21/24 01:32 Potassium 4.3 mmol/L (3.5-5.1) 03/21/24 01:32 Chloride 101 mmol/L (98-107) 03/21/24 01:32 Carbon Dioxide 28 mmol/L (22-29) 03/21/24 01:32 Anion Gap 14.3 (5-19) 03/21/24 01:32 BUN 20 mg/dL (8-23) 03/21/24 01:32 Creatinine 0.9 mg/dL (0.5-0.9) 03/21/24 01:32 GFR Calculation Not Reportable 03/21/24 01:32 Glucose 105 mg/dL (65-115) 03/21/24 01:32 Calculated Osmolality 291 mOsm/kg (285-295) 03/21/24 01:32 Calcium 9.0 mg/dL (8.5-10.5) 03/21/24 01:32 Magnesium 1.8 mg/dL (1.7-2.3) 03/21/24 01:32 Total Bilirubin 0.4 mg/dL (0.15-1.2) 03/21/24 01:32 AST 22 U/L (0-32) 03/21/24 01:32 ALT 12 U/L (0-33) 03/21/24 01:32 Alkaline Phosphatase 120 U/L (35-105) H 03/21/24 01:32 Troponin T Baseline 25 ng/L (0-10) H 03/21/24 01:32 Troponin T 120 Minute 23.65 ng/L (0-10) H 03/21/24 03:30 Delta Troponin T -1.35 ABS# (0-10) L 03/21/24 03:30 Total Protein 6.5 g/dL (6.6-8.7) L 03/21/24 01:32 Albumin 3.7 g/dL (3.5-5.2) 03/21/24 01:32 Globulin 2.8 g/dL (1.3-4.6) 03/21/24 01:32 All radiology interpretation(s) finalized by discharge Discharge Plan Discharge Patient Disposition: Home Clinical Impression: Heart palpitations, Tachycardia Condition: Stable Prescriptions: No Action fexofenadine [Anat Allergy] 60 mg tablet 60 mg PO DAILY metoprolol tartrate 25 mg tablet 25 mg PO .AM and prn tramadol 50 mg tablet 50 mg PO BID PRN (Reason: pain) Qty: 60 5RF triamcinolone acetonide 0.1 % cream 1 applic topical TID PRN (Reason: pruritis) Qty: 80 2RF diltiazem HCl 60 mg tablet 60 mg PO TID 90 Days Qty: 270 3RF prednisolone acetate 1 % drops,suspension 1 drp ophthalmic (eye) BEDTIME red yeast rice 600 mg Capsule 600 mg PO BID Rx Instructions: give with meal/snack montelukast 10 mg tablet 10 mg PO DAILY furosemide 20 mg tablet 20 mg PO BID PRN (Reason: swelling) Rx Instructions: TAKE 1 TABLET BY MOUTH TWICE DAILY NEEDED FOR SWELLING Discharge Orders: Discharge ED (Routine); Ordered 03/21/24 Ordered By: Abner Pineda Referrals: Princess Grande MD [Primary Care Provider] - 1 week Patient Instructions: Tachycardia (ED), Heart Palpitations (ED) Activity Restrictions/Additional Instructions: Your evaluation ER that included lab work, chest x-ray, EKGs all essentially unremarkable except for your anemia. Please follow-up with Dr. Adkins and/or your primary care physician within the 10 days for further evaluation treatment as needed. Coding Level of Care Code ED Cook Apprentice Pastry for Carlyn Villagomez
[2024-03-21 01:37] LABS: Basophils % 0.5 %; Eosinophils # 0.3 10^3/uL (0.0-0.8); Hematocrit 32.4 % (36-47); Lymphocytes # 1.8 10^3/uL (0.8-4.8); Lymphocytes % 29.5 %; Mean Corpuscular HGB Conc 29.6 g/dL (30-55); Mean Corpuscular Hemoglobin 28.7 pg (27-33); Mean Corpuscular Volume 96.7 fl (85-98); Mean Platelet Volume 9.8 fL (7.4-10.4); Monocytes # 0.6 10^3/uL (0.2-0.9); Monocytes % 9.6 %; Neutrophils # 3.29 10^3/uL (1.8-7.7); Neutrophils % 55.2 %; Nucleated Red Blood Cells % 0 %; Platelet Count 207 10^3/cmm (157-399); Red Blood Count 3.35 10^6/uL (3.85-5.65); Red Cell Distribution Width 16.1 % (12.1-15.1); White Blood Count 5.96 10^3/uL (3.29-11.43)
[2024-03-21 01:55] LABS: Troponin(5th) Baseline 25 ng/L (0-10)
[2024-03-21 01:56] LABS: Alanine Aminotransferase 12 U/L (0-33); Albumin Level 3.7 g/dL (3.5-5.2); Alkaline Phosphatase 120 U/L (35-105); Anion Gap 14.3 (5-19); Aspartate Amino Transferase 22 U/L (0-32); Blood Urea Nitrogen 20 mg/dL (8-23); Carbon Dioxide 28 mmol/L (22-29); Chloride 101 mmol/L (98-107); Creatinine Clr Calc Pharmacy 58.3382; Globulin 2.8 g/dL (1.3-4.6); Glucose 105 mg/dL (65-115); Magnesium 1.8 mg/dL (1.7-2.3); Osmolality Calculated 291 mOsm/kg (285-295); Potassium 4.3 mmol/L (3.5-5.1); Sodium 139 mmol/L (136-145); Total Bilirubin 0.4 mg/dL (0.15-1.2); Total Protein 6.5 g/dL (6.6-8.7)
[2024-03-21 03:52] LABS: Troponin 5 2HR 23.65 ng/L (0-10)
[2024-03-21 03:54] LABS: Troponin 5 2HR Delta -1.35 ABS# (0-10)
== END 2024-03-21 04:20 | disposition home or self-care (01) ==
PROVIDERS: Emergency Provider Emergency Medicine; PCP Family Medicine
DX: R00.2 Palpitations (principal); R00.0 Tachycardia, unspecified; I11.0 Hypertensive heart disease with heart failure; I50.9 Heart failure, unspecified; E78.5 Hyperlipidemia, unspecified; Z95.0 Presence of cardiac pacemaker
CPT/HCPCS: 36415; 71045; 80053; 83735; 84484; 85025; 93005; 99285

== ENCOUNTER 2024-05-31 13:06 | Emergency (ER) | payer MEDICARE, OTHER, SELFPAY ==
[2024-05-31 13:20] VITALS: BP 121/75; PULSE 110; RESP 16; TEMP 36.4; O2SAT 96; BMI 42.0
[2024-05-31 14:13] LABS: Basophils % 0.4 %; Eosinophils # 0.2 10^3/uL (0.0-0.8); Eosinophils % 3.8 %; Hematocrit 34.3 % (36-47); Lymphocytes # 1.6 10^3/uL (0.8-4.8); Mean Corpuscular HGB Conc 29.7 g/dL (30-55); Mean Corpuscular Hemoglobin 27.6 pg (27-33); Mean Platelet Volume 9.9 fL (7.4-10.4); Monocytes # 0.6 10^3/uL (0.2-0.9); Monocytes % 13.6 %; Neutrophils # 2.26 10^3/uL (1.8-7.7); Nucleated Red Blood Cells % 0.4 %; Platelet Count 164 10^3/cmm (157-399); Red Blood Count 3.69 10^6/uL (3.85-5.65); Red Cell Distribution Width 18.4 % (12.1-15.1); White Blood Count 4.71 10^3/uL (3.29-11.43)
[2024-05-31 14:32] LABS: Alanine Aminotransferase 16 U/L (0-33); Albumin Level 3.6 g/dL (3.5-5.2); Alkaline Phosphatase 136 U/L (35-105); Anion Gap 9.3 (5-19); Aspartate Amino Transferase 31 U/L (0-32); Blood Urea Nitrogen 18 mg/dL (8-23); Calcium 9.5 mg/dL (8.5-10.5); Carbon Dioxide 36 mmol/L (22-29); Chloride 96 mmol/L (98-107); Creatinine Clr Calc Pharmacy 42.3763; Globulin 2.3 g/dL (1.3-4.6); Glucose 104 mg/dL (65-115); Osmolality Calculated 288 mOsm/kg (285-295); Potassium 3.3 mmol/L (3.5-5.1); Sodium 138 mmol/L (136-145); Total Protein 5.9 g/dL (6.6-8.7)
[2024-05-31 14:35] LABS: Troponin(5th) Baseline 40 ng/L (0-10)
[2024-05-31 15:23] LABS: NT Pro B Type Natriuretic Pept 1233 pg/mL (0-450)
--- NOTE | 2024-05-31 17:16 | ECG_ITS ---
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
[2024-05-31 18:30] LABS: Troponin 5 2HR 39.27 ng/L (0-10)
[2024-05-31 18:31] LABS: Troponin 5 2HR Delta -0.73 ABS# (0-10)
--- NOTE | 2024-06-02 14:42 | PC.NURSE ---
Called pt after LWBS on Sunday. She states she still isn't good but has a follow up with her pcp Dr. Grande soon for possible med changes.
== END 2024-05-31 19:00 | disposition left against medical advice (07) ==
PROVIDERS: Emergency Medicine; Emergency Provider Family Medicine; PCP Family Medicine
DX: Z53.21 Procedure and treatment not carried out due to patient leaving prior to being seen by health care provider (principal)
CPT/HCPCS: 36415; 80053; 83880; 84484; 85025; 93005

== ENCOUNTER 2024-06-01 15:58 | Emergency (ER) | payer MEDICARE, OTHER, SELFPAY ==
--- NOTE | 2024-06-01 16:13 | XRR_ITS ---
PROCEDURE INFORMATION: Exam: XR Chest Exam date and time: 06/01/2024 4:17 PM Age: 83 years old Clinical indication: Shortness of breath; Prior surgery; Surgery date: 6+ months; Surgery type: Pacemaker; Arrives with shca from home- C/O increased swelling to ble. PT reports that she was on lasix and changed to bumex. Now her legs are twice as big as usual. PT denies chest pain, but will get a little SOB with exertion. TECHNIQUE: Imaging protocol: Radiologic exam of the chest. Views: 1 view. COMPARISON: CR XR chest 1V portable [id number] 03/21/2024 1:37 AM FINDINGS: Tubes, catheters and devices: Pacer device noted in the left chest wall. Lungs: No consolidation. Pleural spaces: Trace fluid in the right pulmonary fissure. No evident pleural effusion. No pneumothorax. Heart/Mediastinum: Moderate cardiomegaly. Bones/joints: Unremarkable. XR/XR chest 1V portable [id number] IMPRESSION: Stable exam, no acute findings.
[2024-06-01 16:14] VITALS: BP 128/71; PULSE 115; RESP 18; TEMP 37.1; O2SAT 92
--- NOTE | 2024-06-01 16:31 | ED_ITS ---
Documented by User: Quiana Grimes MD 06/01/24 16:38 HPI - Extremity Problem 2 General: Chief complaint: Extremity Problem,Nontraumatic Stated complaint: lower ext edema Time Seen by Provider: 06/01/24 16:24 Source: patient and EMS Mode of arrival: EMS Limitations: no limitations History of Present Illness: 83-year-old female has a history of CHF and chronic lower extremity edema patient states that she has had some increased swelling to her lower extremities over the last 3 months. States she saw her PCP 2 weeks ago switched to Bumex and has had no improvement she denies any increased pain denies any increase shortness of breath. Denies any vomiting or diarrhea Associated symptoms: Deny chest pain, fever(s) or rash Related Data Home Medications Medication Instructions Recorded Confirmed prednisolone acetate 1 % eye 1 drp ophthalmic (eye) BEDTIME 10/28/20 05/12/24 drops,suspension fexofenadine 60 mg tablet (Anat 60 mg PO DAILY 08/20/23 05/12/24 Allergy) red yeast rice 600 mg capsule 600 mg PO BID 09/13/23 05/12/24 metoprolol tartrate 25 mg tablet 25 mg PO .AM and prn 12/24/23 05/12/24 furosemide 20 mg tablet 20 mg PO BID PRN swelling 03/03/24 05/12/24 Previous Rx's Medication Instructions Recorded triamcinolone acetonide 0.1 % 1 applic topical TID PRN pruritis 11/20/23 topical cream #80 grams diltiazem HCl 60 mg tablet 60 mg PO TID 90 days #270 tabs 12/04/23 nitrofurantoin macrocrystal 100 mg 100 mg PO Q12H #20 caps 03/24/24 capsule (Macrodantin) montelukast 10 mg tablet See Rx Instructions .Route 03/26/24 .COMPLEX #90 tabs tramadol 50 mg tablet 50 mg PO BID PRN pain #60 tabs 04/25/24 ciprofloxacin HCl 250 mg tablet 250 mg PO BID #12 tabs 05/01/24 bumetanide 1 mg tablet 1 mg PO DAILY for swelling instead 05/12/24 of furosemide #90 tabs Allergies Allergy/AdvReac Type Severity Reaction Status Date / Time codeine Allergy ALGY-Difficulty Verified 06/01/24 16:18 [From [employer] with Codeine] Breathing pseudoephedrine Allergy ALGY-Difficulty Verified 06/01/24 16:18 [From Sudafed] Breathing issa AdvReac Unknown hives Verified 06/01/24 16:18 Review of Systems 2 Const: Denies: fever(s) or chills ENMT: Denies: throat pain or dental pain Card: Denies: chest pain Resp: Denies: dyspnea GI: Denies: abdominal pain, nausea, vomiting or diarrhea Musc: Reports: extremity swelling; Denies: neck pain or back pain Skin/Breast: Denies: rash Neuro: Denies: headache(s) PFSH ED 2 PFSH: Medical History Dyslipidemia Benign essential HTN Lower GI bleed History of 2019 novel coronavirus disease (COVID-19) Sick sinus syndrome Varicose veins of bilateral lower extremities with pain CHF (congestive heart failure) last echocardiogram 11/2016, LVEF 65%, no valvular abnormality. Hyperlipidemia HTN (hypertension) Congestive heart failure Osteoarthritis Aortic valve stenosis Anxiety Bradycardia by electrocardiogram Hypertension Chronic atrial fibrillation Hypercholesteremia Surgical History S/P placement of cardiac pacemaker Hx of cataract extraction Hx of cholecystectomy Hx of cholecystectomy Family History Father CAD (coronary artery disease) Mother Cancer Lung Grandmother Diabetes Denies family history of Clotting disorder Dementia Hyperlipidemia Psychiatric illness Chronic kidney disease (CKD) Suicide Anesthesia complication Bleeding disorder Lung disease Hypertension Stroke Social History Smoking and tobacco/nicotine status: never used tobacco/nicotine Alcohol intake: never Substance/Drug Use: never Physical Exam 2 Const: COMMON NORMALS: patient oriented x3 HENMT: COMMON NORMALS: normocephalic and atraumatic HEAD & SCALP: n ormocephalic and atraumatic Neck/C-Spine: COMMON NORMALS: full ROM and supple Chest: COMMONS NORMALS: normal inspection of the chest and normal palpation of entire chest wall Resp: COMMON NORMALS: normal respiratory effort, No retractions, No use of accessory muscles and clear to auscultation bilaterally AUSCULTATION: clear to auscultation bilaterally Cardio: COMMON NORMALS: regular rate, regular rhythm and No murmurs present (Cardio) RATE: regular rate RHYTHM: regular rhythm GI: COMMON NORMALS: Normal to inspection, nondistended, normoactive bowel sounds present, Soft to palpation, non-tender and no masses PALPATION: Yes Soft to palpation Extremity: COMMON NORMALS: full ROM NARRATIVE EXTREMITY EXAM: 2+ edema to le Neuro: COMMON NORMALS: patient oriented x3, moves all extremities and no focal motor deficits Psych: COMMON NORMALS: mental status grossly normal, Normal thought process present and cooperative THOUGHT PROCESS: Normal thought process present Skin: COMMON NORMALS: no rashes or lesions noted and no wounds GENERAL SKIN EXAM: no rashes or lesions noted Course 2 Vital Signs: Vital signs: Vital Signs Temperature 98.7 F 06/01/24 16:14 Pulse Rate 109 H 06/01/24 17:47 Respiratory Rate 18 06/01/24 16:14 Blood Pressure 112/4 06/01/24 17:47 Pulse Oximetry 96 06/01/24 17:47 Oxygen Delivery Me thod Room Air 06/01/24 16:14 MDM - Extremity (Nontraumatic) Lab Data 06/01/24 16:27 06/01/24 16:27 Radiology Impressions Chest X-Ray 06/01/24 16:13 IMPRESSION: Stable exam, no acute findings. Laboratory Results WBC 4.78 10^3/uL (3.29-11.43) 06/01/24 16:27 RBC 3.74 10^6/uL (3.85-5.65) L 06/01/24 16:27 Hgb 10.30 g/dL (11.27-16.99) L 06/01/24 16:27 Hct 35.4 % (36-47) L 06/01/24 16:27 MCV 94.7 fl (85-98) 06/01/24 16:27 MCH 27.5 pg (27-33) 06/01/24 16:27 MCHC 29.1 g/dL (30-55) L 06/01/24 16:27 RDW 18.8 % (12.1-15.1) H 06/01/24 16:27 Plt Count 149 10^3/cmm (157-399) L 06/01/24 16:27 MPV 10.6 fL (7.4-10.4) H 06/01/24 16:27 Neut % (Auto) 53.1 % 06/01/24 16:27 Lymph % (Auto) 31.0 % 06/01/24 16:27 [place] % (Auto) 11.5 % 06/01/24 16:27 Eos % (Auto) 3.8 % 06/01/24 16:27 Baso % (Auto) 0.4 % 06/01/24 16:27 Neut # (Auto) 2.54 10^3/uL (1.8-7.7) 06/01/24 16:27 Lymph # (Auto) 1.5 10^3/uL (0.8-4.8) 06/01/24 16:27 [place] # (Auto) 0.6 10^3/uL (0.2-0.9) 06/01/24 16:27 Eos # (Auto) 0.2 10^3/uL (0.0-0.8) 06/01/24 16:27 Baso # (Auto) 0.0 10^3/uL (0.0-0.1) 06/01/24 16:27 Nucleated RBC % (auto) 0.6 % 06/01/24 16:27 Nucleated RBCs # 0.0 /100WBC 06/01/24 16:27 Sodium 140 mmol/L (136-145) 06/01/24 16:27 Potassium 3.9 mmol/L (3.5-5.1) 06/01/24 16:27 Chloride 98 mmol/L (98-107) 06/01/24 16:27 Carbon Dioxide 30 mmol/L (22-29) H 06/01/24 16:27 Anion Gap 15.9 (5-19) 06/01/24 16:27 BUN 18 mg/dL (8-23) 06/01/24 16:27 Creatinine 1.0 mg/dL (0.5-0.9) H 06/01/24 16:27 GFR Calculation Not Reportable 06/01/24 16:27 Glucose 147 mg/dL (65-115) H 06/01/24 16:27 Calculated Osmolality 295 mOsm/kg (285-295) 06/01/24 16:27 Calcium 9.4 mg/dL (8.5-10.5) 06/01/24 16:27 Total Bilirubin 1.0 mg/dL (0.15-1.2) 06/01/24 16:27 AST 54 U/L (0-32) H 06/01/24 16:27 ALT 21 U/L (0-33) 06/01/24 16:27 Alkaline Phosphatase 143 U/L (35-105) H 06/01/24 16:27 NT-Pro-B Natriuret Pep 1610 pg/mL (0-450) H 06/01/24 16:27 Total Protein 6.1 g/dL (6.6-8.7) L 06/01/24 16:27 Albumin 3.3 g/dL (3.5-5.2) L 06/01/24 16:27 Globulin 2.8 g/dL (1.3-4.6) 06/01/24 16:27 Discharge Plan Discharge Patient Disposition: Home Clinical Impression: Peripheral edema, Congestive heart failure Condition: Stable Prescriptions: No Action fexofenadine [Anat Allergy] 60 mg tablet 60 mg PO DAILY metoprolol tartrate 25 mg tablet 25 mg PO .AM and prn triamcinolone acetonide 0.1 % cream 1 applic topical TID PRN (Reason: pruritis) Qty: 80 2RF diltiazem HCl 60 mg tablet 60 mg PO TID 90 Days Qty: 270 3RF nitrofurantoin macrocrystal [Macrodantin] 100 mg capsule 100 mg PO Q12H Qty: 20 1RF Rx Instructions: must administer with a meal/food montelukast 10 mg tablet See Rx Instructions .ROUTE .COMPLEX Qty: 90 1RF Dose Instruction: TAKE 1 TABLET BY MOUTH DAILY Rx Instructions: TAKE 1 TABLET BY MOUTH DAILY tramadol 50 mg tablet 50 mg PO BID PRN (Reason: pain) Qty: 60 5RF ciprofloxacin HCl 250 mg tablet 250 mg PO BID Qty: 12 0RF Rx Instructions: twice daily for 3 days then once daily bumetanide 1 mg tablet 1 mg PO DAILY Qty: 90 0RF prednisolone acetate 1 % drops,suspension 1 drp ophthalmic (eye) BEDTIME red yeast rice 600 mg Capsule 600 mg PO BID Rx Instructions: give with meal/snack furosemide 20 mg tablet 20 mg PO BID PRN (Reason: swelling) Rx Instructions: TAKE 1 TABLET BY MOUTH TWICE DAILY NEEDED FOR SWELLING Discharge Orders: Discharge ED (Routine); Ordered 06/01/24 Ordered By: Isis Aviles Referrals: Princess Grande MD [Primary Care Provider] - Discharge Activity: Increase activity as tolerated Patient Instructions: Opioid Safety, Pain Management Activity Restrictions/Additional Instructions: You will need to talk to your physician about resuming Lasix if you feel like this works better for your swelling. Thank you for choosing [facility] for your healthcare needs today. Please realize this is an emergency room and that we are providing you with a medical screening exam and this may not be complete and all inclusive of all the testing and or work up that you may need to determine your ailment or severity of your illness. You have been screened and evaluated and felt safe for discharge. Health conditions do change or evolve sometimes and as such it is important that you follow up with your Primary Doctor to be re checked, 3-5 days is a general good time frame for follow up. You are always welcome to return to the ED for re assessment if your symptoms are worsening or you have new concerns Coding Level of Care Code ED Bond Broker for Chg Fwd Documented by User: Isis Aviles MD 06/01/24 17:17 HPI - Extremity Problem 2 General: Chief complaint: Extremity Problem,Nontraumatic Stated complaint: lower ext edema Time Seen by Provider: 06/01/24 16:24 Related Data Home Medications Medication Instructions Recorded Confirmed prednisolone acetate 1 % eye 1 drp ophthalmic (eye) BEDTIME 10/28/20 05/12/24 drops,suspension fexofenadine 60 mg tablet (Anat 60 mg PO DAILY 08/20/23 05/12/24 Allergy) red yeast rice 600 mg capsule 600 mg PO BID 09/13/23 05/12/24 metoprolol tartrate 25 mg tablet 25 mg PO .AM and prn 12/24/23 05/12/24 furosemide 20 mg tablet 20 mg PO BID PRN swelling 03/03/24 05/12/24 Previous Rx's Medication Instructions Recorded triamcinolone acetonide 0.1 % 1 applic topical TID PRN pruritis 11/20/23 topical cream #80 grams diltiazem HCl 60 mg tablet 60 mg PO TID 90 days #270 tabs 12/04/23 nitrofurantoin macrocrystal 100 mg 100 mg PO Q12H #20 caps 03/24/24 capsule (Macrodantin) montelukast 10 mg tablet See Rx Instructions .Route 03/26/24 .COMPLEX #90 tabs tramadol 50 mg tablet 50 mg PO BID PRN pain #60 tabs 04/25/24 ciprofloxacin HCl 250 mg tablet 250 mg PO BID #12 tabs 05/01/24 bumetanide 1 mg tablet 1 mg PO DAILY for swelling instead 05/12/24 of furosemide #90 tabs Allergies Allergy/AdvReac Type Severity Reaction Status Date / Time codeine Allergy ALGY-Difficulty Verified 06/01/24 16:18 [From [employer] with Codeine] Breathing pseudoephedrine Allergy ALGY-Difficulty Verified 06/01/24 16:18 [From Sudafed] Breathing issa AdvReac Unknown hives Verified 06/01/24 16:18 PFSH ED 2 PFSH: Medical History Dyslipidemia Benign essential HTN Lower GI bleed History of 2019 novel coronavirus disease (COVID-19) Sick sinus syndrome Varicose veins of bilateral lower extremities with pain CHF (congestive heart failure) last echocardiogram 11/2016, LVEF 65%, no valvular abnormality. Hyperlipidemia HTN (hypertension) Congestive heart failure Osteoarthritis Aortic valve stenosis Anxiety Bradycardia by electrocardiogram Hypertension Chronic atrial fibrillation Hypercholesteremia Surgical History S/P placement of cardiac pacemaker Hx of cataract extraction Hx of cholecystectomy Hx of cholecystectomy Family History Father CAD (coronary artery disease) Mother Cancer Lung Grandmother Diabetes Denies family history of Clotting disorder Dementia Hyperlipidemia Psychiatric illness Chronic kidney disease (CKD) Suicide Anesthesia complication Bleeding disorder Lung disease Hypertension Stroke Social History Smoking and tobacco/nicotine status: never used tobacco/nicotine Alcohol intake: never Substance/Drug Use: never Course 2 Vital Signs: Vital signs: Vital Signs Temperature 98.7 F 06/01/24 16:14 Pulse Rate 109 H 06/01/24 17:47 Respiratory Rate 18 06/01/24 16:14 Blood Pressure 112/4 06/01/24 17:47 Pulse Oximetry 96 06/01/24 17:47 Oxygen Delivery Me thod Room Air 06/01/24 16:14 MDM - Extremity (Nontraumatic) Medical Decision Making Patient care was transitioned me at shift change. Awaiting final lab work. No anemia. No leukocytosis. Renal function is at around baseline. Her proBNP is near her baseline. Slightly above previous. She has been given IV Lasix. Chest x-ray shows no signs of pulmonary edema. She is being discharged home. Lab Data 06/01/24 16:27 06/01/24 16:27 Radiology Impressions Chest X-Ray 06/01/24 16:13 IMPRESSION: Stable exam, no acute findings. Laboratory Results WBC 4.78 10^3/uL (3.29-11.43) 06/01/24 16:27 RBC 3.74 10^6/uL (3.85-5.65) L 06/01/24 16:27 Hgb 10.30 g/dL (11.27-16.99) L 06/01/24 16:27 Hct 35.4 % (36-47) L 06/01/24 16:27 MCV 94.7 fl (85-98) 06/01/24 16:27 MCH 27.5 pg (27-33) 06/01/24 16:27 MCHC 29.1 g/dL (30-55) L 06/01/24 16:27 RDW 18.8 % (12.1-15.1) H 06/01/24 16:27 Plt Count 149 10^3/cmm (157-399) L 06/01/24 16:27 MPV 10.6 fL (7.4-10.4) H 06/01/24 16:27 Neut % (Auto) 53.1 % 06/01/24 16:27 Lymph % (Auto) 31.0 % 06/01/24 16:27 [place] % (Auto) 11.5 % 06/01/24 16:27 Eos % (Auto) 3.8 % 06/01/24 16:27 Baso % (Auto) 0.4 % 06/01/24 16:27 Neut # (Auto) 2.54 10^3/uL (1.8-7.7) 06/01/24 16:27 Lymph # (Auto) 1.5 10^3/uL (0.8-4.8) 06/01/24 16:27 [place] # (Auto) 0.6 10^3/uL (0.2-0.9) 06/01/24 16:27 Eos # (Auto) 0.2 10^3/uL (0.0-0.8) 06/01/24 16:27 Baso # (Auto) 0.0 10^3/uL (0.0-0.1) 06/01/24 16:27 Nucleated RBC % (auto) 0.6 % 06/01/24 16:27 Nucleated RBCs # 0.0 /100WBC 06/01/24 16:27 Sodium 140 mmol/L (136-145) 06/01/24 16:27 Potassium 3.9 mmol/L (3.5-5.1) 06/01/24 16:27 Chloride 98 mmol/L (98-107) 06/01/24 16:27 Carbon Dioxide 30 mmol/L (22-29) H 06/01/24 16:27 Anion Gap 15.9 (5-19) 06/01/24 16:27 BUN 18 mg/dL (8-23) 06/01/24 16:27 Creatinine 1.0 mg/dL (0.5-0.9) H 06/01/24 16:27 GFR Calculation Not Reportable 06/01/24 16:27 Glucose 147 mg/dL (65-115) H 06/01/24 16:27 Calculated Osmolality 295 mOsm/kg (285-295) 06/01/24 16:27 Calcium 9.4 mg/dL (8.5-10.5) 06/01/24 16:27 Total Bilirubin 1.0 mg/dL (0.15-1.2) 06/01/24 16:27 AST 54 U/L (0-32) H 06/01/24 16:27 ALT 21 U/L (0-33) 06/01/24 16:27 Alkaline Phosphatase 143 U/L (35-105) H 06/01/24 16:27 NT-Pro-B Natriuret Pep 1610 pg/mL (0-450) H 06/01/24 16:27 Total Protein 6.1 g/dL (6.6-8.7) L 06/01/24 16:27 Albumin 3.3 g/dL (3.5-5.2) L 06/01/24 16:27 Globulin 2.8 g/dL (1.3-4.6) 06/01/24 16:27 All radiology interpretation(s) finalized by discharge Discharge Plan Discharge Patient Disposition: Home Clinical Impression: Peripheral edema, Congestive heart failure Condition: Stable Prescriptions: No Action fexofenadine [Anat Allergy] 60 mg tablet 60 mg PO DAILY metoprolol tartrate 25 mg tablet 25 mg PO .AM and prn triamcinolone acetonide 0.1 % cream 1 applic topical TID PRN (Reason: pruritis) Qty: 80 2RF diltiazem HCl 60 mg tablet 60 mg PO TID 90 Days Qty: 270 3RF nitrofurantoin macrocrystal [Macrodantin] 100 mg capsule 100 mg PO Q12H Qty: 20 1RF Rx Instructions: must administer with a meal/food montelukast 10 mg tablet See Rx Instructions .ROUTE .COMPLEX Qty: 90 1RF Dose Instruction: TAKE 1 TABLET BY MOUTH DAILY Rx Instructions: TAKE 1 TABLET BY MOUTH DAILY tramadol 50 mg tablet 50 mg PO BID PRN (Reason: pain) Qty: 60 5RF ciprofloxacin HCl 250 mg tablet 250 mg PO BID Qty: 12 0RF Rx Instructions: twice daily for 3 days then once daily bumetanide 1 mg tablet 1 mg PO DAILY Qty: 90 0RF prednisolone acetate 1 % drops,suspension 1 drp ophthalmic (eye) BEDTIME red yeast rice 600 mg Capsule 600 mg PO BID Rx Instructions: give with meal/snack furosemide 20 mg tablet 20 mg PO BID PRN (Reason: swelling) Rx Instructions: TAKE 1 TABLET BY MOUTH TWICE DAILY NEEDED FOR SWELLING Discharge Orders: Discharge ED (Routine); Ordered 06/01/24 Ordered By: Isis Aviles Referrals: Princess Grande MD [Primary Care Provider] - Discharge Activity: Increase activity as tolerated Patient Instructions: Opioid Safety, Pain Management Activity Restrictions/Additional Instructions: You will need to talk to your physician about resuming Lasix if you feel like this works better for your swelling. Thank you for choosing [facility] for your healthcare needs today. Please realize this is an emergency room and that we are providing you with a medical screening exam and this may not be complete and all inclusive of all the testing and or work up that you may need to determine your ailment or severity of your illness. You have been screened and evaluated and felt safe for discharge. Health conditions do change or evolve sometimes and as such it is important that you follow up with your Primary Doctor to be re checked, 3-5 days is a general good time frame for follow up. You are always welcome to return to the ED for re assessment if your symptoms are worsening or you have new concerns Coding Level of Care Code ED Bond Broker for Carlyn Villagomez
[2024-06-01 16:33] LABS: Basophils % 0.4 %; Eosinophils # 0.2 10^3/uL (0.0-0.8); Eosinophils % 3.8 %; Hematocrit 35.4 % (36-47); Lymphocytes # 1.5 10^3/uL (0.8-4.8); Mean Corpuscular HGB Conc 29.1 g/dL (30-55); Mean Corpuscular Hemoglobin 27.5 pg (27-33); Mean Corpuscular Volume 94.7 fl (85-98); Mean Platelet Volume 10.6 fL (7.4-10.4); Monocytes # 0.6 10^3/uL (0.2-0.9); Monocytes % 11.5 %; Neutrophils # 2.54 10^3/uL (1.8-7.7); Neutrophils % 53.1 %; Nucleated Red Blood Cells % 0.6 %; Platelet Count 149 10^3/cmm (157-399); Red Blood Count 3.74 10^6/uL (3.85-5.65); Red Cell Distribution Width 18.8 % (12.1-15.1); White Blood Count 4.78 10^3/uL (3.29-11.43)
[2024-06-01 17:00] LABS: Alanine Aminotransferase 21 U/L (0-33); Albumin Level 3.3 g/dL (3.5-5.2); Alkaline Phosphatase 143 U/L (35-105); Blood Urea Nitrogen 18 mg/dL (8-23); Calcium 9.4 mg/dL (8.5-10.5); Carbon Dioxide 30 mmol/L (22-29); Chloride 98 mmol/L (98-107); Creatinine Clr Calc Pharmacy 46.6139; Globulin 2.8 g/dL (1.3-4.6); Glucose 147 mg/dL (65-115); NT Pro B Type Natriuretic Pept 1610 pg/mL (0-450); Osmolality Calculated 295 mOsm/kg (285-295); Sodium 140 mmol/L (136-145); Total Protein 6.1 g/dL (6.6-8.7)
[2024-06-01 17:01] LABS: Anion Gap 15.9 (5-19); Aspartate Amino Transferase 54 U/L (0-32); Potassium 3.9 mmol/L (3.5-5.1)
[2024-06-01 17:10] VITALS: BP 112/74; PULSE 112; O2SAT 93
[2024-06-01 17:47] VITALS: BP 112/4; PULSE 109; O2SAT 96
== END 2024-06-01 17:48 | disposition home or self-care (01) ==
PROVIDERS: Emergency Medicine; Emergency Provider Emergency Medicine; PCP Family Medicine
DX: R60.9 Edema, unspecified (principal); I11.0 Hypertensive heart disease with heart failure; I50.9 Heart failure, unspecified; E78.5 Hyperlipidemia, unspecified
CPT/HCPCS: 71045; 80053; 83880; 85025; 99284

== ENCOUNTER 2024-06-07 21:31 | Inpatient (IN) | payer MEDICARE, OTHER, SELFPAY ==
[2024-06-07] VITALS (14 sets, daily range): BP systolic 98–117; BP diastolic 54–65; PULSE 60–66; RESP 12–18; TEMP 36.4; O2SAT 90–93; BMI 43.0
--- NOTE | 2024-06-07 21:49 | XRR_ITS ---
PROCEDURE INFORMATION: Exam: XR Chest Exam date and time: 06/07/2024 9:54 PM Age: 83 years old Clinical indication: Shortness of breath and other: Leg edema; Prior surgery; Surgery date: 6+ months; Surgery type: Pacer; C/O SOB with bilateral le edema. History of chf. ; Additional info: Lower extremity edema TECHNIQUE: Imaging protocol: Radiologic exam of the chest. Views: 2 views. COMPARISON: CR (CHEST, ) 06/01/2024 4:17 PM FINDINGS: Tubes, catheters and devices: A left-sided pacemaker noted. Lungs: Bilateral perihilar interstitial and alveolar opacities present. The lungs are free of consolidation. Pleural spaces: Small bilateral pleural effusions. Heart/Mediastinum: Stable cardiomegaly. Bones/joints: Unremarkable. XR/XR chest 2V* [id number] IMPRESSION: Cardiomegaly associated with pulmonary edema and small bilateral pleural effusions.
--- NOTE | 2024-06-07 22:02 | ED_ITS ---
HPI - Extremity Problem 2 General: Chief complaint: Extremity Problem,Nontraumatic Stated complaint: WEAKNESS Time Seen by Provider: 06/07/24 21:38 History of Present Illness: Yadira FAIRBANKS is a 83-year-old female that presents to the emergency department with complaints of bilateral lower extremity edema and constipation. Patient reports that she has had increasing edema in bilateral lower extremities for the last 3 months. She was taking furosemide but in mid April was changed to 1 mg of Bumex. She notes that she has not had any improvement in her symptoms. Patient denies fever or chills She denies chest pain or shortness of breath She denies abdominal pain but does report constipation. Last normal bowel movement day before yesterday. She did have a bowel movement yesterday but it was less than normal. Patient denies urinary symptoms. She denies back pain or neck pain. She does report difficulty ambulating due to the edema in bilateral lower extremities. She lives at home with her . He is primary personal care worker. Medical history includes CAD, hypertension, hyperlipidemia, CHF, CKD. Associated symptoms: Deny chest pain, fever(s) or rash Related Data Home Medications ?Medication ?Instructions ?Recorded ?Confirmed fexofenadine 60 mg tablet (Anat 60 mg PO DAILY 07/3006/08/24 Allergy) red yeast rice 600 mg capsule 600 mg PO BID 09/13/23 0 06/08/24 metoprolol tartrate 25 mg tablet 25 mg PO .AM and prn 12/24/23 06/08/24 Previous Rx's ?Medication ?Instructions ?Recorded diltiazem HCl 60 mg tablet 60 mg PO TID 90 days #270 t abs 12/04/23 montelukast 10 mg tablet See Rx Instructions .Route 1 05/26/23 .COMPLEX #90 tabs tramadol 50 mg tablet 50 mg PO BID PRN pain #60 ta bs 04/25/24 ferrous sulfate 325 mg (65 mg 325 mg PO DAILY #90 tabs 06/03/24 iron) tablet propafenone 150 mg tablet See Rx Instructions .Route 0 06/03/24 .COMPLEX #270 tabs bumetanide 1 mg tablet 1 mg PO DAILY for swelling i nstead 06/10/24 of furosemide #90 tabs Allergies Allergy/AdvReac Type Severity Reaction Status Date / Time No Known Allergies Allergy Verified 06/08/24 16:49 Review of Systems 2 Const: Denies: fever(s) or chills ENMT: Denies: throat pain or dental pain Card: Reports: edema and swelling of feet/ankles; Denies: chest pain Resp: Denies: dyspnea GI: Reports: constipation; Denies: abdominal pain, nausea, vomiting or diarrhea Musc: Reports: extremity swelling; Denies: neck pain or back pain Skin/Breast: Denies: rash Neuro: Denies: headache(s) PFSH ED 2 PFSH: Medical History Dyslipidemia Benign essential HTN Lower GI bleed History of 2019 novel coronavirus disease (COVID-19) Sick sinus syndrome Varicose veins of bilateral lower extremities with pain CHF (congestive heart failure) last echocardiogram 11/2016, LVEF 65%, no valvular abnormality. Hyperlipidemia HTN (hypertension) Congestive heart failure Osteoarthritis Aortic valve stenosis Anxiety Bradycardia by electrocardiogram Hypertension Chronic atrial fibrillation Hypercholesteremia Surgical History S/P placement of cardiac pacemaker Hx of cataract extraction Hx of cholecystectomy Hx of cholecystectomy Family History Father CAD (coronary artery disease) Mother Cancer Lung Grandmother Diabetes Denies family history of Clotting disorder Dementia Hyperlipidemia Psychiatric illness Chronic kidney disease (CKD) Suicide Anesthesia complication Bleeding disorder Lung disease Hypertension Stroke Social History Smoking and tobacco/nicotine status: never used tobacco/nicotine Alcohol intake: never Substance/Drug Use: never Physical Exam 2 Const: COMMON NORMALS: patient oriented x3 HENMT: COMMON NORMALS: normocephalic and atraumatic HEAD & SCALP: n ormocephalic and atraumatic Neck/C-Spine: COMMON NORMALS: full ROM and supple Chest: COMMONS NORMALS: normal inspection of the chest and normal palpation of entire chest wall Resp: COMMON NORMALS: normal respiratory effort, No retractions, No use of accessory muscles and clear to auscultation bilaterally AUSCULTATION: clear to auscultation bilaterally Cardio: COMMON NORMALS: regular rate, regular rhythm and No murmurs present (Cardio) RATE: regular rate RHYTHM: regular rhythm GI: COMMON NORMALS: Normal to inspection, nondistended, normoactive bowel sounds present, Soft to palpation, non-tender and no masses PALPATION: Yes Soft to palpation Extremity: COMMON NORMALS: full ROM NARRATIVE EXTREMITY EXAM: 2+ edema to bilateral lower extremities Neuro: COMMON NORMALS: patient oriented x3, moves all extremities and no focal motor deficits Psych: COMMON NORMALS: mental status grossly normal, Normal thought process present and cooperative THOUGHT PROCESS: Normal thought process present Skin: COMMON NORMALS: no rashes or lesions noted and no wounds GENERAL SKIN EXAM: no rashes or lesions noted Course 2 Vital Signs: Vital signs: Vital Signs Temperature 97.7 F 06/14/24 11:57 Pulse Rate 82 06/14/24 11:57 Respiratory Rate 16 06/14/24 11:57 Blood Pressure 112/71 06/14/24 11:57 Pulse Oximetry 90 06/14/24 11:57 Oxygen Delivery Me thod Nasal Cannula 06/14/24 11:57 Oxygen Flow Rate 1 06/14/24 08:13 MDM - Extremity (Nontraumatic) Medical Decision Making Patient was evaluated in the emergency department today for peripheral edema secondary to congestive heart failure heart disease and chronic kidney disease. Patient underwent laboratory evaluation as well as XR and EKG. EKG reveals that she is in a paced rhythm at a rate of 60 beats a minute. The laboratory studies included a CBC CMP troponin series, BNP. Her BNP is elevated over her baseline, worse than it was on 06/01/2024. Her troponin is 54 which is over baseline of 40. We did obtain a 2-hour delta that is pending at this time. Her CBC reveals anemia that is no worse than her baseline. The chemistry panel reveals a elevated creatinine. Her baseline is 1.0-1.2. She is at 1.6. Her chest x-ray reveals pleural effusions pulmonary edema. She was treated here in the emergency department with Lasix. I have reviewed the case with Dr. Chicas who recommends admission as well. I did speak with the hospitalist who will evaluate the patient for admission. Lab Data 06/14/24 03:34 06/14/24 03:34 Radiology Impressions Renal Ultrasound 06/08/24 09:15 IMPRESSION: 1. No hydronephrosis or renal calculus. 2. There is a García catheter in the bladder. The bladder is decompressed. Chest X-Ray 06/12/24 11:18 IMPRESSION: Abnormal chest as above. There is been mild progression of abnormality in the left lower hemithorax with the right hemithorax relatively stable. Head CT 06/12/24 16:15 IMPRESSION: No acute intracranial abnormality. Laboratory Results WBC 5.34 10^3/uL (3.29-11.43) 06/07/24 21:54 RBC 3.62 10^6/uL (3.85-5.65) L 06/07/24 21:54 Hgb 10.00 g/dL (11.27-16.99) L 06/07/24 21:54 Hct 33.5 % (36-47) L 06/07/24 21:54 MCV 92.5 fl (85-98) 06/07/24 21:54 MCH 27.6 pg (27-33) 06/07/24 21:54 MCHC 29.9 g/dL (30-55) L 06/07/24 21:54 RDW 18.8 % (12.1-15.1) H 06/07/24 21:54 Plt Count 144 10^3/cmm (157-399) L 06/07/24 21:54 MPV 10.1 fL (7.4-10.4) 06/07/24 21:54 Neut % (Auto) 47.3 % 06/07/24 21:54 Lymph % (Auto) 36.0 % 06/07/24 21:54 Maverick % (Auto) 13.1 % 06/07/24 21:54 Eos % (Auto) 2.8 % 06/07/24 21:54 Baso % (Auto) 0.4 % 06/07/24 21:54 Neut # (Auto) 2.53 10^3/uL (1.8-7.7) 06/07/24 21:54 Lymph # (Auto) 1.9 10^3/uL (0.8-4.8) 06/07/24 21:54 Maverick # (Auto) 0.7 10^3/uL (0.2-0.9) 06/07/24 21:54 Eos # (Auto) 0.2 10^3/uL (0.0-0.8) 06/07/24 21:54 Baso # (Auto) 0.0 10^3/uL (0.0-0.1) 06/07/24 21:54 Nucleated RBC % (auto) 1.1 % 06/07/24 21:54 Nucleated RBCs # 0.1 /100WBC 06/07/24 21:54 Sodium 142 mmol/L (136-145) 06/08/24 04:33 Potassium 3.8 mmol/L (3.5-5.1) 06/08/24 04:33 Chloride 100 mmol/L (98-107) 06/08/24 04:33 Carbon Dioxide 29 mmol/L (22-29) 06/08/24 04:33 Anion Gap 16.8 (5-19) 06/08/24 04:33 BUN 24 mg/dL (8-23) H 06/08/24 04:33 Creatinine 1.5 mg/dL (0.5-0.9) H 06/08/24 04:33 GFR Calculation Not Reportable 06/08/24 04:33 Glucose 85 mg/dL (65-115) 06/08/24 04:33 Estimat Average Glucose 120 06/07/24 21:54 Hemoglobin A1c 5.8 % (4.0-6.0) 06/07/24 21:54 Calculated Osmolality 297 mOsm/kg (285-295) H 06/08/24 04:33 Calcium 9.4 mg/dL (8.5-10.5) 06/08/24 04:33 Phosphorus 3.8 mg/dL (2.5-4.5) 06/08/24 04:33 Magnesium 1.9 mg/dL (1.7-2.3) 06/08/24 04:33 Total Bilirubin 1.1 mg/dL (0.15-1.2) 06/07/24 21:54 AST 51 U/L (0-32) H 06/07/24 21:54 ALT 28 U/L (0-33) 06/07/24 21:54 Alkaline Phosphatase 148 U/L (35-105) H 06/07/24 21:54 Troponin T Baseline 54 ng/L (0-10) H 06/07/24 21:54 Troponin T 120 Minute 53.51 ng/L (0-10) H 06/07/24 23:50 Delta Troponin T -0.49 ABS# (0-10) L 06/07/24 23:50 Troponin T Hi Sens 6Hr 49.72 ng/L (0-10) H 06/08/24 04:33 Troponin T Hi Sens 6Hr Delta -4.28 ng/L (0-12) L 06/08/24 04:33 NT-Pro-B Natriuret Pep 1796 pg/mL (0-450) H 06/07/24 21:54 Total Protein 5.9 g/dL (6.6-8.7) L 06/07/24 21:54 Albumin 3.3 g/dL (3.5-5.2) L 06/07/24 21:54 Globulin 2.6 g/dL (1.3-4.6) 06/07/24 21:54 Vitamin B12 > 2000 pg/mL (232-1245) H 06/07/24 23:50 All radiology interpretation(s) finalized by discharge Discharge Plan Discharge Patient Disposition: Admitted As Inpatient Admit Provider: Margo Arizmendi Clinical Impression: CHF (congestive heart failure), Pleural effusion, Chronic kidney disease Iron deficiency anemia Qualifiers: Iron deficiency anemia type: other iron deficiency Qualified Code(s): D50.8 - Other iron deficiency anemias Condition: Stable Discharge Diet: Cardiac and Low Salt Discharge Activity: Resume usual activity and Increase activity as tolerated Coding Level of Care Code ED Harness Cleaner for Carlyn Villagomez
[2024-06-07 22:08] LABS: Basophils % 0.4 %; Eosinophils # 0.2 10^3/uL (0.0-0.8); Eosinophils % 2.8 %; Hematocrit 33.5 % (36-47); Lymphocytes # 1.9 10^3/uL (0.8-4.8); Mean Corpuscular HGB Conc 29.9 g/dL (30-55); Mean Corpuscular Hemoglobin 27.6 pg (27-33); Mean Corpuscular Volume 92.5 fl (85-98); Mean Platelet Volume 10.1 fL (7.4-10.4); Monocytes # 0.7 10^3/uL (0.2-0.9); Monocytes % 13.1 %; Neutrophils # 2.53 10^3/uL (1.8-7.7); Neutrophils % 47.3 %; Nucleated Red Blood Cells # 0.1 /100WBC; Nucleated Red Blood Cells % 1.1 %; Platelet Count 144 10^3/cmm (157-399); Red Blood Count 3.62 10^6/uL (3.85-5.65); Red Cell Distribution Width 18.8 % (12.1-15.1); White Blood Count 5.34 10^3/uL (3.29-11.43)
--- NOTE | 2024-06-07 22:16 | ECG_ITS ---
[employer] Test Date: 2024-06-07 Pat Name: Yadira Krishnan Department: Room: 106 Gender: Female Hemodialysis Rn: : 1940 Requested By: Remberto De La Torre Order Number: [id number] Reading MD: JOE RESENDIZ Measurements Intervals [place] Rate: 60 P: 257 WI: 219 QRS: -81 QRSD: 186 T: 131 QT: 519 QTc: 519 Interpretive Statements ELECTRONIC ATRIAL PACEMAKER ELECTRONIC VENTRICULAR PACEMAKER ABNORMAL RHYTHM ECG Compared to ECG 05/31/2024 17:16:42 No significant changes Electronically Signed On 06-08-2024 20:56:49 CLINICAL SCIENTIST by JOE RESENDIZ [email or web address]
[2024-06-07] MEDS: FUROsemide 10 mg/mL SDV 4mL 40 MG IVP (22:24)
[2024-06-07 22:26] LABS: Troponin(5th) Baseline 54 ng/L (0-10)
[2024-06-07 22:33] LABS: Alanine Aminotransferase 28 U/L (0-33); Albumin Level 3.3 g/dL (3.5-5.2); Alkaline Phosphatase 148 U/L (35-105); Anion Gap 16.7 (5-19); Aspartate Amino Transferase 51 U/L (0-32); Blood Urea Nitrogen 23 mg/dL (8-23); Calcium 9.1 mg/dL (8.5-10.5); Carbon Dioxide 30 mmol/L (22-29); Chloride 98 mmol/L (98-107); Creatinine Clr Calc Pharmacy 29.5018; Globulin 2.6 g/dL (1.3-4.6); Glucose 97 mg/dL (65-115); NT Pro B Type Natriuretic Pept 1796 pg/mL (0-450); Osmolality Calculated 296 mOsm/kg (285-295); Potassium 3.7 mmol/L (3.5-5.1); Sodium 141 mmol/L (136-145); Total Bilirubin 1.1 mg/dL (0.15-1.2); Total Protein 5.9 g/dL (6.6-8.7)
[2024-06-08] VITALS (23 sets, daily range): BP systolic 90–110; BP diastolic 50–69; PULSE 59–93; RESP 10–24; TEMP 36.2–36.6; O2SAT 91–94; BMI 52.0
--- NOTE | 2024-06-08 00:01 | P.HP_ITS ---
Providers/Chief Complaint 2 Primary Care Provider: Princess Grande MD Chief Complaint: WEAKNESS History of Present Illness Yadira Krishnan is a 83 year old female with history of colon cancer status post hemicolectomy, sick sinus syndrome status post pacemaker, A-fib not on anticoagulation secondary to GI bleed, diastolic CHF presented with worsening of swelling inability to walk and generalized weakness. not able to take care of her anymore, patient is wheelchair-bound. No recent fever diarrhea nausea vomiting or chest pain. Patient 3 weeks ago was switched to Bumex however she has not made good amount of urine as per the . In the ER lab work consistent with chronic anemia, CHF exacerbation, x-ray consistent with pulm edema she is on room air hemodynamically stable. Heart rate is around 60, patient is endorsing taking metoprolol, Cardizem and propafenone Review of Systems 2 Const: Denies: fever(s) Eyes: Denies: change in vision ENMT: Denies: throat pain Card: Reports: swelling of feet/ankles; Denies: chest pain Resp: Reports: dyspnea GI: Denies: abdominal pain Medications/Allergies Home Medications ?Medication ?Instructions ?Recorded ?Confirmed ?Last Taken ?Type prednisolone acetate 1 % eye 1 drp ophthalmic (eye) BE DTIME 10/28/20 05/12/24 03/03/24 History drops,suspension fexofenadine 60 mg tablet (Anat 60 mg PO DAILY 07/3005/12/24 03/03/24 History Allergy) red yeast rice 600 mg capsule 600 mg PO BID 09/13/23 0 05/12/24 03/03/24 History triamcinolone acetonide 0.1 % 1 applic topical TID PRN pruritis 11/20/23 05/12/24 03/03/24 Rx topical cream #80 grams diltiazem HCl 60 mg tablet 60 mg PO TID 90 days #270 t abs 12/04/23 05/12/24 03/03/24 Rx metoprolol tartrate 25 mg tablet 25 mg PO .AM and prn 12/24/23 05/12/24 03/03/24 History furosemide 20 mg tablet 20 mg PO BID PRN swelling 05/12/24 03/03/24 History nitrofurantoin macrocrystal 100 mg 100 mg PO Q12H #20 caps 03/24/24 05/12/24 Unknown Rx capsule (Macrodantin) montelukast 10 mg tablet See Rx Instructions .Route 1 05/26/23 05/12/24 Unknown Rx .COMPLEX #90 tabs tramadol 50 mg tablet 50 mg PO BID PRN pain #60 ta bs 04/25/24 05/12/24 Unknown Rx ciprofloxacin HCl 250 mg tablet 250 mg PO BID #12 tabs 05/01/24 05/12/24 Unknown Rx bumetanide 1 mg tablet 1 mg PO DAILY for swelling i nstead 05/12/24 05/12/24 Unknown Rx of furosemide #90 tabs ferrous sulfate 325 mg (65 mg 325 mg PO DAILY #90 tabs 06/03/24 Unknown Rx iron) tablet propafenone 150 mg tablet See Rx Instructions .Route 0 06/03/24 Unknown Rx .COMPLEX #270 tabs Allergies Allergy/AdvReac Type Severity Reaction Status Date / Time codeine (From [employer] with Allergy ALGY-Difficulty Verified 06/01/24 16:18 Codeine) Breathing pseudoephedrine (From Allergy ALGY-Difficulty Verified 06/01/24 16:18 Sudafed) Breathing issa AdvReac Unknown hives Verified 06/01/24 16:18 PFSH Acute 2 PFSH: Medical History Dyslipidemia Benign essential HTN Lower GI bleed History of 2019 novel coronavirus disease (COVID-19) Sick sinus syndrome Varicose veins of bilateral lower extremities with pain CHF (congestive heart failure) last echocardiogram 11/2016, LVEF 65%, no valvular abnormality. Hyperlipidemia HTN (hypertension) Congestive heart failure Osteoarthritis Aortic valve stenosis Anxiety Bradycardia by electrocardiogram Hypertension Chronic atrial fibrillation Hypercholesteremia Surgical History S/P placement of cardiac pacemaker Hx of cataract extraction Hx of cholecystectomy Hx of cholecystectomy Family History Father CAD (coronary artery disease) Mother Cancer Lung Grandmother Diabetes Denies family history of Clotting disorder Dementia Hyperlipidemia Psychiatric illness Chronic kidney disease (CKD) Suicide Anesthesia complication Bleeding disorder Lung disease Hypertension Stroke Social History Smoking and tobacco/nicotine status: never used tobacco/nicotine Alcohol intake: never Substance/Drug Use: never Vitals/I&O/Wt Last Vital Signs Temp 97.6 F 06/07/24 21:34 Pulse 60 06/07/24 22:30 Resp 16 06/07/24 22:27 BP 115/54 06/07/24 22:30 Pulse Ox 92 06/07/24 22:30 O2 Del Method Room Air 06/07/24 22:30 06/07/24 06/07/24 06/08/24 14:59 22:59 06:59 Intake Total 0 / 0 Balance 0 / 0 Weight last 48 hrs Weight 106.594 kg Physical Exam 2 Narrative: Morbidly obese Anasarca GCS 15 3+ edema of legs standing up to a abdomi nal wall No active chest pain Irregular rhythm heart rate around 60 Blood pressure stable No active chest pain or shortness of breath Currently on room air Lower extremity edema with blisters Edema of leg extending all the way up to abdominal wall No audible stridor or wheezing is at the bedside No active focal deficit Pleasant and cooperative Dry mucous membranes Data 06/07/24 21:54 06/07/24 21:54 A&P Assessment and plan (1) BENJAMIN (acute kidney injury): (2) S/P placement of cardiac pacemaker: (3) Sick sinus syndrome: (4) Aortic valve stenosis: Qualifiers: Cardiac valve disease etiology: nonrheumatic Qualified Code(s): I35.0 - Nonrheumatic aortic (valve) stenosis (5) CHF (congestive heart failure): Qualifiers: Heart failure type: combined systolic and diastolic Heart failure chronicity: acute Qualified Code(s): I50.41 - Acute combined systolic (congestive) and diastolic (congestive) heart failure (6) Varicose veins of bilateral lower extremities with pain: (7) Peripheral vascular disease: (8) Claudication: (9) Colon cancer: Qualifiers: Colon location: unspecified part of colon Qualified Code(s): C18.9 - Malignant neoplasm of colon, unspecified (10) Iron deficiency anemia: Qualifiers: Iron deficiency anemia type: other iron deficiency Qualified Code(s): D 50.8 - Other iron deficiency anemias (11) Peripheral edema: Plan Acute diastolic CHF exacerbation Preserved ejection fraction No active chest pain Chronic anemia Seems to be gradual decline in underlying CHF Request another echo Start Bumex with metolazone Place García catheter for accurate urine output measurement Monitor blood pressure closely Anasarca with lower extremity edema with blisters Monitor closely for development of any sign of cellulitis For now hold off on antibiotics Patient is wheelchair-bound Not very active at baseline A-fib/sick sinus/status post pacemaker Off anticoagulating agent secondary to GI bleed in the past Hemoglobin stable Patient is endorsing taking metoprolol, Cardizem and propafenone As per the heart rate is due to the difficult control if she does not take these 3 medications \Monitor blood pressure closely with diuretics and metolazone Wheelchair-bound Cardiac diet Full code DVT prophylaxis: Heparin PDMP PDMP Reviewed: Not Reviewed Attestations 2 Medical Necessity Statement*: More than 2 midnights anticipated for management of anasarca, CHF exacerbation and BENJAMIN Coding Level of Care Code Acute Code for Chg Fwd Diagnoses BENJAMIN (acute kidney injury) N17.9 S/P placement of cardiac pacemaker Z95.0 Sick sinus syndrome I49.5 Nonrheumatic aortic valve stenosis I35.0 Cardiac valve disease etiology: nonrheumatic Diastolic congestive heart failure, unspecified HF chronicity I50.41 Heart failure type: combined systolic and diastolic Heart failure chronicity: acute Varicose veins of bilateral lower extremities with pain I83.813 Peripheral vascular disease I73.9 Claudication I73.9 Malignant neoplasm of colon, unspecified part of colon C18.9 Colon location: unspecified part of colon Other iron deficiency anemia D50.8 Iron deficiency anemia type: other iron deficiency Peripheral edema R60.0
--- NOTE | 2024-06-08 00:03 | USCV_ITS ---
Yadira Krishnan Age: 83 Gender: F : 1940 Exam Date: 06/08/2024 14:34 Ordering Phys: Margo Arizmendi MD Technologist: Sascha Dee [place] [facility] [place] chf BP: 109 / 69 HR: 79 Rhythm: Sinus Technical Quality: Adequate MEASUREMENTS (Male / Female) Normal Values 2D ECHO LV Diastolic Diameter PLAX 3.6 cm 4.2 - 5.9 / 3.9 - 5.3 cm IVS Diastolic Thickness 1.3 cm 0.6 - 1.0 / 0.6 - 0.9 cm IVS Systolic Thickness 1.5 cm LVPW Diastolic Thickness 1.9 cm 0.6 - 1.0 / 0.6 - 0.9 cm LVPW Systolic Thickness 2.4 cm LVOT Diameter 2.0 cm LV Ejection Fraction 2D Teich 53.8 % LV Ejection Fraction MOD 4C 57.0 % LV Ejection Fraction MOD 2C 67.2 % LV Ejection Fraction 2C AL 66.8 % LA Diameter 4.4 cm RA Systolic Volume 4C AL 82.8 ml RA Systolic Volume 4C MOD 83.9 ml LA Sys Volume AL 86.4 cm cubed LA Sys Volume Index AL 35.1 cm cubed/m squared Aorta at Sinotubular Diameter 1.8 cm IVC Diameter 2.7 cm M-MODE LA Ao Ratio MM 2.2 AV Cusp Separation MM 1.7 cm DOPPLER AV Peak Velocity 122.0 cm/s LVOT Peak Velocity 86.0 cm/s AV Area Cont Eq vti 2.5 cm squared AV Area Cont Eq pk 2.2 cm squared MV Peak Velocity 135.0 cm/s MV Area PHT 5.2 cm squared Mitral E to A Ratio 58.7 TV Peak Velocity 297.5 cm/s TR Peak Velocity 310.0 cm/s TR Peak Gradient 38.4 mmHg TR Mean Velocity 224.0 cm/s TR Mean Gradient 22.9 mmHg TR Velocity Time Integral 98.6 cm PV Peak Velocity 75.0 cm/s RV Ejection Time 0.3 s FINDINGS Left Ventricle Normal left ventricular size, systolic function and wall thickness, abnormal septal motion consistent with conduction abnormality. . Left ventricular ejection fraction is estimated at 55 %. Grade III/IV diastolic dysfunction (restrictive filling pattern), severely elevated filling pressures. Right Ventricle Moderate pulmonary hypertension, RVSP 38 mmHg. Catheter/pacemaker wire visualized in the right ventricle. Right Atrium Moderately increased right atrial size. Left Atrium Moderately increased left atrial size. Mitral Valve Moderately thickened mitral valve. Moderate mitral annular calcification. No mitral valve stenosis. Moderate mitral valve regurgitation. Aortic Valve Structurally normal aortic valve without significant sclerosis or stenosis. There is no aortic regurgitation. Tricuspid Valve Severe tricuspid valve regurgitation. Pulmonic Valve Structurally normal pulmonic valve without significant stenosis. There is no pulmonic regurgitation. Pericardium Normal pericardium without effusion. Aorta Normal ascending aorta dimension. IVC Moderately dilated IVC. CONCLUSIONS Normal left ventricular size, systolic function and wall thickness, abnormal septal motion consistent with conduction abnormality. . Left ventricular ejection fraction is estimated at 55 %. Grade III/IV diastolic dysfunction (restrictive filling pattern), severely elevated filling pressures. Moderate pulmonary hypertension, RVSP 38 mmHg. Catheter/pacemaker wire visualized in the right ventricle. Moderately increased right atrial size. Moderately increased left atrial size. Moderately thickened mitral valve. Moderate mitral annular calcification. No mitral valve stenosis. Moderate mitral valve regurgitation. Structurally normal aortic valve without significant sclerosis or stenosis. There is no aortic regurgitation. Severe tricuspid valve regurgitation. There is no pericardial effusion. Right atrial pressure is around 20 mm of mercury. Margo Newell MD (Electronically Signed) Final Date: 08 June 2024 19:14 S
[2024-06-08 00:32] LABS: Troponin 5 2HR 53.51 ng/L (0-10)
[2024-06-08 00:36] LABS: Troponin 5 2HR Delta -0.49 ABS# (0-10)
[2024-06-08 02:53] LABS: Vitamin B12 > 2000 pg/mL (232-1245)
[2024-06-08 02:58] LABS: Estmated Average Glucose 120; Hemoglobin A1C 5.8 % (4.0-6.0)
[2024-06-08] MEDS: bumetanide 0.25 mg/mL SDV 10 mL 2 MG IVP ×2 (03:28→09:10)
--- NOTE | 2024-06-08 04:40 | ECG_ITS ---
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
[2024-06-08 05:12] LABS: Troponin 5 6HR 49.72 ng/L (0-10)
[2024-06-08 05:14] LABS: Troponin 5 6HR Delta -4.28 ng/L (0-12)
[2024-06-08 05:21] LABS: Anion Gap 16.8 (5-19); Blood Urea Nitrogen 24 mg/dL (8-23); Calcium 9.4 mg/dL (8.5-10.5); Carbon Dioxide 29 mmol/L (22-29); Chloride 100 mmol/L (98-107); Creatinine Clr Calc Pharmacy 35.3317; Glucose 85 mg/dL (65-115); Magnesium 1.9 mg/dL (1.7-2.3); Osmolality Calculated 297 mOsm/kg (285-295); Phosphorus 3.8 mg/dL (2.5-4.5); Potassium 3.8 mmol/L (3.5-5.1); Sodium 142 mmol/L (136-145)
[2024-06-08] MEDS: heparin 5,000 unit/mL INJ 1 mL 5000 UNIT SUBCUT ×2 (05:27→16:47)
--- NOTE | 2024-06-08 06:32 | PC.NURSE ---
Addendum entered by Cindy Robles RN 06/08/24 07:49: Awaiting response. Original Note: 9215- Notified night hospitalist that after giving the 2 mg of bumex patient still not voiding. in totally since FC placed only got 40ml of urine. Please see JUN.
[2024-06-08] MEDS: pantoprazole 40 mg SDV IVP ×2 (09:10→16:47)
[2024-06-08] MEDS: dilTIAZem 60 mg Tablet PO ×2 (09:10→15:11)
[2024-06-08] MEDS: metoprolol tartrate 25 mg Tablet PO (09:11)
[2024-06-08] MEDS: metOLazone 5 MG Tablet PO ×2 (09:11→16:47)
--- NOTE | 2024-06-08 09:14 | P.PN_ITS ---
Subjective 2 Subjective: Patient was seen this morning she reports bilateral extremity edema that persists, reports feeling short of breath, reports increased abdominal distention due to fluid overload, no chest pain, no palpitations, no nausea, no vomiting, she tells me that the Bumex is stopped working for her, she is gaining a lot of weight Vitals/I&O/Wt Last Vital Signs Temp 97.8 F 06/08/24 07:55 Pulse 60 06/08/24 07:55 Resp 14 06/08/24 07:55 BP 110/50 06/08/24 07:55 Pulse Ox 92 06/08/24 07:55 O2 Del Method Room Air 06/08/24 07:55 06/07/24 06/08/24 06/08/24 22:59 06:59 14:59 Intake Total 0 / 0 Output Total 40 / 40 Balance 0 / 0 -40 / -40 Weight last 48 hrs Weight 129.019 kg Weight 128.905 kg Weight 106.594 kg Physical Exam 2 Const: COMMON NORMALS: no acute distress and patient oriented x3 Resp: COMMON NORMALS: normal respiratory effort, No retractions and No use of accessory muscles AUSCULTATION: crackles Cardio: COMMON NORMALS: regular rate, regular rhythm, S1 normal heart sound present and S2 normal heart sound present RATE: regular rate RHYTHM: r egular rhythm HEART SOUNDS: S1 normal heart sound present and S2 normal heart sound present GI: COMMON NORMALS: Normal to inspection, nondistended, normoactive bowel sounds present and non-tender Extremity: NARRATIVE EXTREMITY EXAM: 3+ pitting edema, anasarca, abdominal wa ll edema Neuro: COMMON NORMALS: patient oriented x3 Urinary Catheter Management: García: Cath Placed During This Visit: yes Reason for Continuing Indwelling Catheter: Other Urinary Catheter Date of Insertion: 06/08/24 Urinary Catheter Time of Insertion: 01:19 Data 06/07/24 21:54 06/08/24 04:33 A&P Assessment and plan (1) BENJAMIN (acute kidney injury): (2) S/P placement of cardiac pacemaker: (3) Sick sinus syndrome: (4) Aortic valve stenosis: Qualifiers: Cardiac valve disease etiology: nonrheumatic Qualified Code(s): I35.0 - Nonrheumatic aortic (valve) stenosis (5) CHF (congestive heart failure): Qualifiers: Heart failure type: combined systolic and diastolic Heart failure chronicity: acute Qualified Code(s): I50.41 - Acute combined systolic (congestive) and diastolic (congestive) heart failure (6) Varicose veins of bilateral lower extremities with pain: (7) Peripheral vascular disease: (8) Claudication: (9) Colon cancer: Qualifiers: Colon location: unspecified part of colon Qualified Code(s): C18.9 - Malignant neoplasm of colon, unspecified (10) Iron deficiency anemia: Qualifiers: Iron deficiency anemia type: other iron deficiency Qualified Code(s): D 50.8 - Other iron deficiency anemias (11) Peripheral edema: Plan Acute diastolic CHF exacerbation Has failed outpatient diuretic therapy With history of CHF Cardiac echo Bumex 1 mg IV every 8 hours Metolazone [address] García catheter for accurate urine output measurement Monitor blood pressure closely Anasarca with lower extremity edema with blisters Likely sec to CHF Monitor for cellulitis BENJAMIN on CKD, monitor creatinine, potassium, renal ultrasound Patient is wheelchair-bound Not very active at baseline A-fib/sick sinus/status post pacemaker Off anticoagulating agent secondary to GI bleed in the past No bloody black stools hemoglobin has been stable Patient is endorsing taking metoprolol, Cardizem and propafenone Monitor closely Wheelchair-bound Cardiac diet Full code DVT prophylaxis: Heparin PDMP PDMP Reviewed: Not Reviewed Attestations 2 Medical Necessity Statement*: Patient requires hospitalization for diastolic CHF exacerbation failure with outpatient diuretic therapy requiring inpatient diuretic therapy Diagnoses BENJAMIN (acute kidney injury) N17.9 S/P placement of cardiac pacemaker Z95.0 Sick sinus syndrome I49.5 Nonrheumatic aortic valve stenosis I35.0 Cardiac valve disease etiology: nonrheumatic Diastolic congestive heart failure, unspecified HF chronicity I50.41 Heart failure type: combined systolic and diastolic Heart failure chronicity: acute Varicose veins of bilateral lower extremities with pain I83.813 Peripheral vascular disease I73.9 Claudication I73.9 Malignant neoplasm of colon, unspecified part of colon C18.9 Colon location: unspecified part of colon Other iron deficiency anemia D50.8 Iron deficiency anemia type: other iron deficiency Peripheral edema R60.0
--- NOTE | 2024-06-08 09:15 | USR_ITS ---
PROCEDURE INFORMATION: Exam: US Retroperitoneal, Complete, Kidneys and Bladder Exam date and time: 06/08/2024 2:19 PM Age: 83 years old Clinical indication: Condition or disease; Kidney or ureter condition; Other: Bhupinder TECHNIQUE: Imaging protocol: Real-time ultrasound of the retroperitoneum with image documentation. Complete exam focused on the bilateral kidneys and urinary bladder. COMPARISON: CT abdomen pelvis w con* [id number] 03/11/2022 9:31 AM FINDINGS: Right kidney: The right kidney measures 7.5 cm in length with no hydronephrosis or renal calculus. Left kidney: The left kidney measures 8.3 cm in length with no hydronephrosis or renal calculus. Urinary bladder: There is a García catheter in the bladder. The bladder is decompressed. Aorta: The visualized aorta is unremarkable. US/US renal BI* [id number] IMPRESSION: 1. No hydronephrosis or renal calculus. 2. There is a García catheter in the bladder. The bladder is decompressed.
--- NOTE | 2024-06-08 10:07 | PC.NURSE ---
took over pt care per verbal order from dr to flush pt's mims catheter.
[2024-06-08] MEDS: propafenone 150 mg Tablet PO ×2 (10:12→15:11)
[2024-06-08] MEDS: bumetanide 0.25 mg/mL SDV 10 mL 1 MG IVP ×2 (16:47→23:32)
[2024-06-09 04:00] VITALS: BP 105/62; PULSE 77; RESP 23; TEMP 36.4; O2SAT 91
[2024-06-09] MEDS: heparin 5,000 unit/mL INJ 1 mL 5000 UNIT SUBCUT ×2 (05:18→18:07)
[2024-06-09 06:34] LABS: Basophils % 0.3 %; Eosinophils # 0.3 10^3/uL (0.0-0.8); Eosinophils % 4.7 %; Hematocrit 34.8 % (36-47); Lymphocytes # 1.7 10^3/uL (0.8-4.8); Lymphocytes % 26.1 %; Mean Corpuscular HGB Conc 30.2 g/dL (30-55); Mean Corpuscular Hemoglobin 27.8 pg (27-33); Mean Corpuscular Volume 92.1 fl (85-98); Mean Platelet Volume 10.1 fL (7.4-10.4); Monocytes # 0.7 10^3/uL (0.2-0.9); Monocytes % 11.4 %; Neutrophils # 3.62 10^3/uL (1.8-7.7); Neutrophils % 57.2 %; Nucleated Red Blood Cells % 0.6 %; Platelet Count 139 10^3/cmm (157-399); Red Blood Count 3.78 10^6/uL (3.85-5.65); Red Cell Distribution Width 19.3 % (12.1-15.1); White Blood Count 6.33 10^3/uL (3.29-11.43)
[2024-06-09 07:03] LABS: Anion Gap 14.7 (5-19); Blood Urea Nitrogen 28 mg/dL (8-23); Calcium 9.2 mg/dL (8.5-10.5); Carbon Dioxide 31 mmol/L (22-29); Chloride 98 mmol/L (98-107); Creatinine Clr Calc Pharmacy 33.3748; Glucose 113 mg/dL (65-115); NT Pro B Type Natriuretic Pept 2088 pg/mL (0-450); Osmolality Calculated 296 mOsm/kg (285-295); Potassium 3.7 mmol/L (3.5-5.1); Sodium 140 mmol/L (136-145)
[2024-06-09] MEDS: propafenone 150 mg Tablet PO ×3 (07:42→20:10)
[2024-06-09] MEDS: metoprolol tartrate 25 mg Tablet PO ×2 (07:42→20:10)
[2024-06-09] MEDS: metOLazone 5 MG Tablet PO (07:42)
[2024-06-09] MEDS: pantoprazole 40 mg SDV IVP ×2 (07:43→18:07)
[2024-06-09] MEDS: sennosides-docusate Tablet 1 TAB PO (07:43)
[2024-06-09] MEDS: dilTIAZem 60 mg Tablet PO ×2 (07:43→20:10)
[2024-06-09] MEDS: bumetanide 0.25 mg/mL SDV 10 mL 1 MG IVP ×2 (07:43→18:07)
[2024-06-09 07:59] VITALS: BP 111/65; PULSE 79; RESP 20; RESP 22; TEMP 36.4; O2SAT 91; O2SAT 92
--- NOTE | 2024-06-09 09:45 | PC.CHAP ---
Pastoral Care Encounter/Spiritual Assessment Type of Contact [] Declined spindle carver visit [] Patient/Family/Request visit [] Outpatient visit [] Follow-up visit [] Physician referral [] Code/Alert [x] Routine visit [] Staff referral [] Actively dying [] Patient sleeping [] Family support [] [] Out of room [] Palliative care [] [] Receiving care in room [] Pre-surgical visit [] Trauma [] Long length of stay [] ICU visit [] Other: Relational/Emotional Strength [] Patient feels connected with others/family/visitors/staff [] Distress [] Loneliness/isolation [] Abandonment Spirituality of Patient [x] Person of Flor [] Attends Amish of their Flor [x] Believes in Prayer [] Reads Bible or Christianity materials [] There are Spiritual issues to be addressed Rod Filler Interventions [x] Prayer [x] Active listening [] Non-anxious presence [] Spiritual/emotional support [] Crisis/trauma care [] Spiritual counseling [] Bereavement support [] Provided bereavement packet [x] Provided Bible/devotional materials [] Provided toy/stuffed animal, coloring book to patient or family member [] Provided Communion [] Anointing/[place] [] Salvation [x] Completed spiritual assessment [] Other: Impact on Illness or Injury [] Angry [] Fearful [] Anxious [] Often cries [] Exhaustion [] Unable to work [] Unable to attend amish [] Unable to walk/stand [] Unable to read [] Unable to drive [] Unable to eat/drink [] Unable to sleep [] Unable to be with family [] Patient intubated [] Other: Summary Time spent with patient 10 min
[2024-06-09 10:00] VITALS: PULSE 74; RESP 16; O2SAT 93
--- NOTE | 2024-06-09 11:03 | P.DS_ITS ---
Discharge Providers Date of Admission: 06/08/24 12:56 Date of Discharge: June 09, 2024 Attending Provider at Admission: Magro Arizmendi MD Attending Provider at Discharge: Chandler Monique MD Primary Care Provider: Princess Grande MD Diagnoses at Discharge Discharge Diagnosis (1) BENJAMIN (acute kidney injury): Status: Acute (2) S/P placement of cardiac pacemaker: Status: Acute (3) Sick sinus syndrome: Status: Acute (4) Aortic valve stenosis: Status: Acute Qualifiers: Cardiac valve disease etiology: nonrheumatic Qualified Code(s): I35.0 - Nonrheumatic aortic (valve) stenosis (5) CHF (congestive heart failure): Status: Acute Qualifiers: Heart failure chronicity: acute Heart failure type: combined systolic and diastolic Qualified Code(s): I50.41 - Acute combined systolic (congestive) and diastolic (congestive) heart failure Permanent problem details: last echocardiogram 11/2016, LVEF 65%, no valvular abnormality. (6) Varicose veins of bilateral lower extremities with pain: Status: Acute (7) Peripheral vascular disease: Status: Acute (8) Claudication: Status: Acute (9) Colon cancer: Status: Acute Qualifiers: Colon location: unspecified part of colon Qualified Code(s): C18.9 - Malignant neoplasm of colon, unspecified (10) Iron deficiency anemia: Status: Acute Qualifiers: Iron deficiency anemia type: other iron deficiency Qualified Code(s): D50.8 - Other iron deficiency anemias (11) Peripheral edema: Status: Inactive Reason for Visit Reason for Visit: WEAKNESS Brief History: As per HPI: Yadira Krishnan is a 83 year old female with history of colon cancer status post hemicolectomy, sick sinus syndrome status post pacemaker, A-fib not on anticoagulation secondary to GI bleed, diastolic CHF presented with worsening of swelling inability to walk and generalized weakness. not able to take care of her anymore, patient is wheelchair-bound. No recent fever diarrhea nausea vomiting or chest pain. Patient 3 weeks ago was switched to Bumex however she has not made good amount of urine as per the . In the ER lab work consistent with chronic anemia, CHF exacerbation, x-ray consistent with pulm edema she is on room air hemodynamically stable. Heart rate is around 60, patient is endorsing taking metoprolol, Cardizem and propafenone Hospital Course Hospital Course Patient was admitted to the hospital for further evaluation and management of lower limb swelling with concerns for acute kidney injury. She was started on aggressive IV diuresis. Echocardiogram was done which showed a normal EF with grade 2 diastolic dysfunction, moderate pulmonary hypertension with RVSP of 38 m mHg. During hospitalization she remained hemodynamically stable and afebrile. Her renal functions remained stable at around 1.6 over 3 days. It is believed her lower limb swelling is most likely in setting of lymphedema due to her being wheelchair-bound and patient is intravascularly euvolemic. Lower limb Dopplers have been ordered. Patient would benefit with lymphedema wraps going forward along with oral diuresis and lifestyle modification as per congestive heart failure. Fluid restriction and low-salt diet. Safe discharge plan were discussed in detail with the patient and she verbalized understanding and was agreeable for discharge to home. Home health were discussed with the patient, she stated her will be able to take care of lymphedema wraps at home. Physical Exam Const: COMMON NORMALS: no acute distress and patient oriented x3 Resp: COMMON NORMALS: normal respiratory effort, No retractions and No use of accessory muscles AUSCULTATION: crackles Cardio: COMMON NORMALS: regular rate, regular rhythm, S1 normal heart sound present and S2 normal heart sound present RATE: regular rate RHYTHM: regular rhythm HEART SOUNDS: S1 normal heart sound present and S2 normal heart sound present GI: COMMON NORMALS: Normal to inspection, nondistended, normoactive bowel sounds present and non-tender Extremity: NARRATIVE EXTREMITY EXAM: 3+ pitting edema, anasarca, abdominal wa ll edema Neuro: COMMON NORMALS: patient oriented x3 Urinary Catheter Management: García: Cath Placed During This Visit: yes Reason for Continuing Indwelling Catheter: Other Urinary Catheter Date of Insertion: 06/08/24 Urinary Catheter Time of Insertion: 01:19 Discharge Data Studies Completed and Pending Completed Studies During Hospitalization Category Date Time Status XR chest 2V* [id number] Stat Exams 06/07/24 21:49 Completed CV. echo complete* [id number] Routine Ultrasound 06/08/24 00:03 Completed US renal BI* [id number] Routine Ultrasound 06/08/24 09:15 Completed Radiology Impressions Chest X-Ray 06/07/24 21:49 IMPRESSION: Cardiomegaly associated with pulmonary edema and small bilateral pleural effusions. Renal Ultrasound 06/08/24 09:15 IMPRESSION: 1. No hydronephrosis or renal calculus. 2. There is a García catheter in the bladder. The bladder is decompressed. Echocardiogram CONCLUSIONS Normal left ventricular size, systolic function and wall thickness, abnormal septal motion consistent with conduction abnormality. . Left ventricular ejection fraction is estimated at 55 %. Grade III/IV diastolic dysfunction (restrictive filling pattern), severely elevated filling pressures. Moderate pulmonary hypertension, RVSP 38 mmHg. Catheter/pacemaker wire visualized in the right ventricle. Moderately increased right atrial size. Moderately increased left atrial size. Moderately thickened mitral valve. Moderate mitral annular calcification. No mitral valve stenosis. Moderate mitral valve regurgitation. Structurally normal aortic valve without significant sclerosis or stenosis. There is no aortic regurgitation. Severe tricuspid valve regurgitation. There is no pericardial effusion. Right atrial pressure is around 20 mm of mercury. Margo Newell MD (Electronically Signed) Final Date: 08 June 2024 19:14 Laboratory Results WBC 6.33 10^3/uL (3.29-11.43) 06/09/24 06:12 RBC 3.78 10^6/uL (3.85-5.65) L 06/09/24 06:12 Hgb 10.50 g/dL (11.27-16.99) L 06/09/24 06:12 Hct 34.8 % (36-47) L 06/09/24 06:12 MCV 92.1 fl (85-98) 06/09/24 06:12 MCH 27.8 pg (27-33) 06/09/24 06:12 MCHC 30.2 g/dL (30-55) 06/09/24 06:12 RDW 19.3 % (12.1-15.1) H 06/09/24 06:12 Plt Count 139 10^3/cmm (157-399) L 06/09/24 06:12 MPV 10.1 fL (7.4-10.4) 06/09/24 06:12 Neut % (Auto) 57.2 % 06/09/24 06:12 Lymph % (Auto) 26.1 % 06/09/24 06:12 [place] % (Auto) 11.4 % 06/09/24 06:12 Eos % (Auto) 4.7 % 06/09/24 06:12 Baso % (Auto) 0.3 % 06/09/24 06:12 Neut # (Auto) 3.62 10^3/uL (1.8-7.7) 06/09/24 06:12 Lymph # (Auto) 1.7 10^3/uL (0.8-4.8) 06/09/24 06:12 [place] # (Auto) 0.7 10^3/uL (0.2-0.9) 06/09/24 06:12 Eos # (Auto) 0.3 10^3/uL (0.0-0.8) 06/09/24 06:12 Baso # (Auto) 0.0 10^3/uL (0.0-0.1) 06/09/24 06:12 Nucleated RBC % (auto) 0.6 % 06/09/24 06:12 Nucleated RBCs # 0.0 /100WBC 06/09/24 06:12 Sodium 140 mmol/L (136-145) 06/09/24 06:12 Potassium 3.7 mmol/L (3.5-5.1) 06/09/24 06:12 Chloride 98 mmol/L (98-107) 06/09/24 06:12 Carbon Dioxide 31 mmol/L (22-29) H 06/09/24 06:12 Anion Gap 14.7 (5-19) 06/09/24 06:12 BUN 28 mg/dL (8-23) H 06/09/24 06:12 Creatinine 1.6 mg/dL (0.5-0.9) H 06/09/24 06:12 GFR Calculation Not Reportable 06/09/24 06:12 Glucose 113 mg/dL (65-115) 06/09/24 06:12 Estimat Average Glucose 120 06/07/24 21:54 Hemoglobin A1c 5.8 % (4.0-6.0) 06/07/24 21:54 Calculated Osmolality 296 mOsm/kg (285-295) H 06/09/24 06:12 Calcium 9.2 mg/dL (8.5-10.5) 06/09/24 06:12 Phosphorus 3.8 mg/dL (2.5-4.5) 06/08/24 04:33 Magnesium 1.9 mg/dL (1.7-2.3) 06/08/24 04:33 Total Bilirubin 1.1 mg/dL (0.15-1.2) 06/07/24 21:54 AST 51 U/L (0-32) H 06/07/24 21:54 ALT 28 U/L (0-33) 06/07/24 21:54 Alkaline Phosphatase 148 U/L (35-105) H 06/07/24 21:54 Troponin T Baseline 54 ng/L (0-10) H 06/07/24 21:54 Troponin T 120 Minute 53.51 ng/L (0-10) H 06/07/24 23:50 Delta Troponin T -0.49 ABS# (0-10) L 06/07/24 23:50 Troponin T Hi Sens 6Hr 49.72 ng/L (0-10) H 06/08/24 04:33 Troponin T Hi Sens 6Hr Delta -4.28 ng/L (0-12) L 06/08/24 04:33 NT-Pro-B Natriuret Pep 2088 pg/mL (0-450) H 06/09/24 06:12 Total Protein 5.9 g/dL (6.6-8.7) L 06/07/24 21:54 Albumin 3.3 g/dL (3.5-5.2) L 06/07/24 21:54 Globulin 2.6 g/dL (1.3-4.6) 06/07/24 21:54 Vitamin B12 > 2000 pg/mL (232-1245) H 06/07/24 23:50 Vitals Last Vital Signs Temp 97.6 F 06/09/24 07:59 Pulse 74 06/09/24 10:00 Resp 16 06/09/24 10:00 BP 111/65 06/09/24 07:59 Pulse Ox 93 06/09/24 10:00 O2 Del Method Room Air 06/09/24 10:00 Discharge Plan Discharge Patient Disposition: Home Condition: Stable Prescriptions: Continued fexofenadine [Anat Allergy] 60 mg tablet 60 mg PO DAILY metoprolol tartrate 25 mg tablet 25 mg PO .AM and prn diltiazem HCl 60 mg tablet 60 mg PO TID 90 Days Qty: 270 3RF montelukast 10 mg tablet See Rx Instructions .ROUTE .COMPLEX Qty: 90 1RF Dose Instruction: TAKE 1 TABLET BY MOUTH DAILY Rx Instructions: TAKE 1 TABLET BY MOUTH DAILY tramadol 50 mg tablet 50 mg PO BID PRN (Reason: pain) Qty: 60 5RF propafenone 150 mg tablet See Rx Instructions .ROUTE .COMPLEX Qty: 270 0RF Dose Instruction: TAKE 1 TABLET BY MOUTH THREE TIMES DAILY Rx Instructions: TAKE 1 TABLET BY MOUTH THREE TIMES DAILY ferrous sulfate 325 mg (65 mg iron) tablet 325 mg PO DAILY Qty: 90 1RF red yeast rice 600 mg Capsule 600 mg PO BID Rx Instructions: give with meal/snack Changed bumetanide 1 mg tablet 1 mg PO BID Qty: 90 0RF Referrals: Princess Grande MD [Primary Care Provider] - 06/16/24 2:00 pm Discharge Diet: Cardiac and Low Salt Discharge Activity: Resume usual activity and Increase activity as tolerated Patient Instructions: Acute Kidney Injury (DC), Pleural Effusion (DC), CHF Stoplight, Opioid Safety Activity Restrictions/Additional Instructions: Restrict fluid intake to less than 1500 cc, salt intake to less than 2 g daily. Advised to check his weight daily at home. Is advised that weight today would be the dry weight and if body weight increases by around 3 pounds, patient is to take an extra dose of Bumex daily till body weight comes down to weight today. If not able to come down to dry body weight in 1 week, then is to call cardiology office for further recommendations. Patient was counseled in detail to take medications regularly as prescribed. Please check your kidney functions again with a primary care doctor within next 2 weeks. Please wear lymphedema wraps daily. Discharge Attestations Time Spent in Discharge Care*: greater than 30 min Specific Discharge Activities: educating patient, discussing with pcp/other providers, discussing with case loader operator/social workers/dc planners, documenting/other paperwork and evaluating patient/reviewing data Status at Discharge: Cognitive status at discharge: cognitively intact , Behavioral status at discharge: cooperative , Functional status at discharge: wheelchair bound , Overall status at discharge: patient is back to baseline Quality Metrics Clinical Quality Measures [ No reported AMI, CVA or VTE this stay] Coding Level of Care Code 20061 Total time (in minutes) for Discharge: 60 Diagnoses BENJAMIN (acute kidney injury) N17.9 S/P placement of cardiac pacemaker Z95.0 Sick sinus syndrome I49.5 Nonrheumatic aortic valve stenosis I35.0 Cardiac valve disease etiology: nonrheumatic Diastolic congestive heart failure, unspecified HF chronicity I50.41 Heart failure chronicity: acute Heart failure type: combined systolic and diastolic Varicose veins of bilateral lower extremities with pain I83.813 Peripheral vascular disease I73.9 Claudication I73.9 Malignant neoplasm of colon, unspecified part of colon C18.9 Colon location: unspecified part of colon Other iron deficiency anemia D50.8 Iron deficiency anemia type: other iron deficiency Peripheral edema R60.0
--- NOTE | 2024-06-09 11:06 | USCV_ITS ---
Yadira Krishnan Age: 83 Gender: F : 1940 Exam Date: 06/09/2024 14:39 Ordering Phys: Chandler Monique MD Technologist: Exam Location: [facility] [place]: ? dvt PROCEDURES: The venous duplex Doppler examination of both lower extremities was performed in the standard fashion. The following venous structures were evaluated: common femoral vein, profunda vein, proximal portion of the greater saphenous vein, superficial femoral vein, and the popliteal vein. FINDINGS: Normal 2-D Doppler and augmentation and compressibility throughout the lower extremity venous structures. Additional imaging through the proximal calf veins also reveals no thrombus. Limited evaluation of the greater saphenous vein is patent with no thrombus. CONCLUSIONS No evidence of right lower extremity DVT. No evidence of left lower extremity DVT. Roel Worthington MD (Electronically Signed) Final Date: 09 June 2024 17:09 S
--- NOTE | 2024-06-09 11:58 | PC.SOCIAL ---
IMM Update pg 2 of IMM Updated and reviewed w/ patient. Copy provided and copy dated, initialed and placed in chart.
[2024-06-09 12:00] VITALS: BP 95/59; PULSE 69; RESP 20; TEMP 36.4; O2SAT 92
[2024-06-09 16:00] VITALS: BP 103/55; PULSE 74; RESP 14; TEMP 36.3; O2SAT 91
[2024-06-09 19:48] VITALS: BP 109/62; PULSE 64; RESP 24; TEMP 36.4; O2SAT 98
[2024-06-10] VITALS (10 sets, daily range): BP systolic 95–115; BP diastolic 51–64; PULSE 60–64; RESP 15–23; TEMP 36.3–36.7; O2SAT 97–100
[2024-06-10] MEDS: heparin 5,000 unit/mL INJ 1 mL 5000 UNIT SUBCUT ×2 (05:14→18:02)
[2024-06-10] MEDS: propafenone 150 mg Tablet PO ×3 (08:41→20:53)
[2024-06-10] MEDS: sennosides-docusate Tablet 1 TAB PO (08:41)
[2024-06-10] MEDS: metoprolol tartrate 25 mg Tablet PO ×2 (08:41→20:53)
[2024-06-10] MEDS: pantoprazole 40 mg SDV IVP ×2 (08:41→18:03)
[2024-06-10] MEDS: dilTIAZem 60 mg Tablet PO ×2 (08:41→14:50)
[2024-06-10] MEDS: bumetanide 0.25 mg/mL SDV 10 mL 1 MG IVP ×2 (08:41→18:02)
--- NOTE | 2024-06-10 12:40 | P.PN_ITS ---
Subjective 2 Subjective: 83 year old female with a past medical h istory of congestive heart failure, atrial fibrillation/sick sinus syndrome status post pacemaker placement, and chronic kidney disease presents with worsening lower extremity edema and shortness of breath. The patient has failed outpatient diuretic therapy. The patient is noted to have anasarca with lower extremity edema and blisters, likely secondary to congestive heart failure exacerbation. The patient is wheelchair-bound and not very active at baseline. Patients initial laboratory workup in the emergency room a showed a WBC of 5.3, hemoglobin at 10, hematocrit 33 and a platelet count of 144. Sodium 144, potassium 3.7, chloride 98, bicarb 30, BUN 23 and creatinine of 1.6. Prior to this she had a creatinine of 1.0 on June 01.Chest x-ray has showed a cardiomegaly with pulmonary edema and small bilateral pleural effusions. This was on the 07 of June. The patient was started on intravenous Bumex and oral metolazone for diuresis. A Mims catheter was placed for accurate urine output measurement. Renal US was done which did not show any evidence of hydronephrosis. Renal function remained at around 1.6. Bilateral venous dopplers were done which were also negative for DVT. The patient has a history of gastrointestinal bleeding and is currently off anticoagulation. No bloody or black stools are noted, and hemoglobin has been stable. The patient is taking metoprolol, Cardizem, and propafenone, which will be monitored closely. Patient was discharged on 06/09 however this was held as she was requiring addiitonal IV diuretics. Also case management was consulted to assist with arranging safe discharge disposition. Denied any fever, chills, nausea or vomiting. Vitals/I&O/Wt Last Vital Signs Temp 97.7 F 06/10/24 11:29 Pulse 61 06/10/24 11:29 Resp 18 06/10/24 11:29 BP 107/51 06/10/24 11:29 Pulse Ox 97 06/10/24 10:00 O2 Del Method Nasal Cannula 06/10/24 10:00 O2 Flow Rate 2 06/10/24 10:00 06/09/24 06/10/24 06/10/24 22:59 06:59 14:59 Intake Total 0 / 120 100 / 220 Output Total 650 / 650 300 / 950 Balance -650 / -530 -200 / -730 Weight last 48 hrs Weight 130.453 kg Weight 130.453 kg Physical Exam 2 Const: COMMON NORMALS: no acute distress and patient oriented x3 Resp: COMMON NORMALS: normal respiratory effort, No retractions and No use of accessory muscles AUSCULTATION: crackles Cardio: COMMON NORMALS: regular rate, regular rhythm, S1 normal heart sound present and S2 normal heart sound present RATE: regular rate RHYTHM: r egular rhythm HEART SOUNDS: S1 normal heart sound present and S2 normal heart sound present GI: COMMON NORMALS: Normal to inspection, nondistended, normoactive bowel sounds present and non-tender Extremity: NARRATIVE EXTREMITY EXAM: 3+ pitting edema, anasarca, abdominal wa ll edema Neuro: COMMON NORMALS: patient oriented x3 Urinary Catheter Management: Mims: Cath Placed During This Visit: yes Reason for Continuing Indwelling Catheter: Other Urinary Catheter Date of Insertion: 06/08/24 Urinary Catheter Time of Insertion: 01:19 Data 06/09/24 06:12 06/09/24 06:12 A&P Assessment and plan (1) BENJAMIN (acute kidney injury): (2) S/P placement of cardiac pacemaker: (3) Sick sinus syndrome: (4) Aortic valve stenosis: Qualifiers: Cardiac valve disease etiology: nonrheumatic Qualified Code(s): I35.0 - Nonrheumatic aortic (valve) stenosis (5) CHF (congestive heart failure): Qualifiers: Heart failure chronicity: acute Heart failure type: combined systolic and diastolic Qualified Code(s): I50.41 - Acute combined systolic (congestive) and diastolic (congestive) heart failure (6) Varicose veins of bilateral lower extremities with pain: (7) Peripheral vascular disease: (8) Claudication: (9) Colon cancer: Qualifiers: Colon location: unspecified part of colon Qualified Code(s): C18.9 - Malignant neoplasm of colon, unspecified (10) Iron deficiency anemia: Qualifiers: Iron deficiency anemia type: other iron deficiency Qualified Code(s): D 50.8 - Other iron deficiency anemias (11) Peripheral edema: Plan 1. Acute Diastolic Congestive Heart Failure Exacerbation - The patient has a history of congestive heart failure and has failed outpatient diuretic therapy. Presenting with worsening lower extremity edema and shortness of breath. - Echo noted above Plan: 1. Continue intravenous Bumex 1 mg every 12hr for diuresis. 2. Monitor urine output, daily weights, and electrolytes. 3. Follow up with cardiology outpatient 4. BMP in am 2. Anasarca with Lower Extremity Edema and Blisters - The patient has significant fluid overload with anasarca and lower extremity edema complicated by blister formation, likely secondary to congestive heart failure. - Likley due to Venous stasis due to immobility and heart failure. Plan: 1. Elevate lower extremities when possible to reduce edema. 2. Monitor blisters for signs of infection or skin breakdown. 3. Acute Kidney Injury on Chronic Kidney Disease - The patient has a history of chronic kidney disease and now presents with acute kidney injury, likely secondary to volume overload and decreased renal perfusion. - Creatinine was noted to be 1.6 on admission, has now remained at 1.6. Monitor urine output. Mims was placed on admission - Renal US noted Plan: 1. Monitor creatinine, BUN, and electrolytes daily. 2. D/C mims once transition to PO diuretics 3. May need to consult nephrology if worsening renal dysfunction. 4. Atrial Fibrillation/Sick Sinus Syndrome Status Post Pacemaker - The patient has a history of atrial fibrillation, sick sinus syndrome, and pacemaker placement. Currently off anticoagulation due to prior gastrointestinal bleeding. Plan: 1. Continue current antiarrhythmic medications (metoprolol 25 mg daily propafenone 150 TID). 2. Cardiology follow up outpatient 5. Mobility Limitations - The patient is wheelchair-bound and has limited mobility at baseline. Plan: 1. Physical therapy and occupational therapy consulted. 2. Social work involvement for discharge planning and home care arrangements. Discharge Planning -Case management is coordinating the discharge plan and placement details. DVT prophylaxis: Heparin 5000 units Q12 ( continue for now, monitor for bleeding given mildly decreased platelets) PDMP PDMP Reviewed: Not Reviewed Attestations 2 Medical Necessity Statement*: Patient requires hospitalization for diastolic CHF exacerbation failure with outpatient diuretic therapy requiring inpatient diuretic therapy Coding Level of Care Code Acute Code for [facility] Diagnoses BENJAMIN (acute kidney injury) N17.9 S/P placement of cardiac pacemaker Z95.0 Sick sinus syndrome I49.5 Nonrheumatic aortic valve stenosis I35.0 Cardiac valve disease etiology: nonrheumatic Diastolic congestive heart failure, unspecified HF chronicity I50.41 Heart failure chronicity: acute Heart failure type: combined systolic and diastolic Varicose veins of bilateral lower extremities with pain I83.813 Peripheral vascular disease I73.9 Claudication I73.9 Malignant neoplasm of colon, unspecified part of colon C18.9 Colon location: unspecified part of colon Other iron deficiency anemia D50.8 Iron deficiency anemia type: other iron deficiency Peripheral edema R60.0
[2024-06-10 22:48] LABS: Influenza A NEGATIVE (Negative); Influenza B NEGATIVE (Negative); Respiratory Syncytial Virus Ce NEGATIVE (Negative); SARS-CoV-2 PCR NEGATIVE (Negative)
[2024-06-11] VITALS (10 sets, daily range): BP systolic 94–109; BP diastolic 52–74; PULSE 59–61; RESP 16–18; TEMP 36.3–36.7; O2SAT 91–98
[2024-06-11 05:25] LABS: Basophils % 0.2 %; Eosinophils # 0.2 10^3/uL (0.0-0.8); Eosinophils % 3.4 %; Hematocrit 34.6 % (36-47); Lymphocytes # 1.6 10^3/uL (0.8-4.8); Lymphocytes % 28.2 %; Mean Corpuscular HGB Conc 30.3 g/dL (30-55); Mean Corpuscular Hemoglobin 27.6 pg (27-33); Mean Corpuscular Volume 91.1 fl (85-98); Mean Platelet Volume 10.5 fL (7.4-10.4); Monocytes # 0.7 10^3/uL (0.2-0.9); Monocytes % 12.6 %; Neutrophils # 3.11 10^3/uL (1.8-7.7); Neutrophils % 55.2 %; Nucleated Red Blood Cells % 0.5 %; Platelet Count 158 10^3/cmm (157-399); Red Cell Distribution Width 19.3 % (12.1-15.1); White Blood Count 5.63 10^3/uL (3.29-11.43)
[2024-06-11] MEDS: heparin 5,000 unit/mL INJ 1 mL 5000 UNIT SUBCUT ×2 (05:32→17:33)
[2024-06-11 06:03] LABS: Anion Gap 16.6 (5-19); Blood Urea Nitrogen 33 mg/dL (8-23); Calcium 9.6 mg/dL (8.5-10.5); Carbon Dioxide 30 mmol/L (22-29); Chloride 95 mmol/L (98-107); Creatinine Clr Calc Pharmacy 28.1795; Glucose 102 mg/dL (65-115); Osmolality Calculated 293 mOsm/kg (285-295); Potassium 3.6 mmol/L (3.5-5.1); Sodium 138 mmol/L (136-145)
[2024-06-11] MEDS: bumetanide 0.25 mg/mL SDV 10 mL 1 MG IVP (08:37)
[2024-06-11] MEDS: pantoprazole 40 mg SDV IVP (08:38)
[2024-06-11] MEDS: metoprolol tartrate 25 mg Tablet PO ×2 (08:38→21:32)
[2024-06-11] MEDS: sennosides-docusate Tablet 1 TAB PO (08:38)
[2024-06-11] MEDS: dilTIAZem 60 mg Tablet PO ×3 (08:38→21:32)
[2024-06-11] MEDS: propafenone 150 mg Tablet PO ×3 (08:38→21:31)
--- NOTE | 2024-06-11 09:05 | PC.SOCIAL ---
IMM Updated Updated pt on IMM. No questions voiced. Provided pt a copy. Initialed, dated, & timed copy in chart.
[2024-06-11] MEDS: lactated ringers 1,000 ML 30 ML IV (10:44)
--- NOTE | 2024-06-11 13:54 | P.PN_ITS ---
Subjective 2 Subjective: No new complaints overnight NO fever, chills, nausea or vomiting. Was confused at times Vitals/I&O/Wt Last Vital Signs Temp 97.8 F 06/11/24 12:40 Pulse 60 06/11/24 12:40 Resp 16 06/11/24 12:40 BP 108/55 06/11/24 12:40 Pulse Ox 97 06/11/24 12:40 O2 Del Method Nasal Cannula 06/11/24 12:40 O2 Flow Rate 1.5 06/11/24 08:08 06/10/24 06/11/24 06/11/24 22:59 06:59 14:59 Intake Total 0 / 0 0 / 0 300 / 300 Output Total 400 / 400 250 / 650 Balance -400 / -400 -250 / -650 300 / 300 Weight last 48 hrs Weight 130.997 kg Weight 130.453 kg Physical Exam 2 Const: COMMON NORMALS: no acute distress and patient oriented x3 Resp: COMMON NORMALS: normal respiratory effort, No retractions and No use of accessory muscles AUSCULTATION: crackles Cardio: COMMON NORMALS: regular rate, regular rhythm, S1 normal heart sound present and S2 normal heart sound present RATE: regular rate RHYTHM: r egular rhythm HEART SOUNDS: S1 normal heart sound present and S2 normal heart sound present GI: COMMON NORMALS: Normal to inspection, nondistended, normoactive bowel sounds present and non-tender Extremity: NARRATIVE EXTREMITY EXAM: 3+ pitting edema, anasarca, abdominal wa ll edema Neuro: COMMON NORMALS: patient oriented x3 Urinary Catheter Management: García: Cath Placed During This Visit: yes Reason for Continuing Indwelling Catheter: Other Urinary Catheter Date of Insertion: 06/08/24 Urinary Catheter Time of Insertion: 01:19 Data 06/11/24 05:00 06/11/24 05:00 A&P Assessment and plan (1) BENJAMIN (acute kidney injury): (2) S/P placement of cardiac pacemaker: (3) Sick sinus syndrome: (4) Aortic valve stenosis: Qualifiers: Cardiac valve disease etiology: nonrheumatic Qualified Code(s): I35.0 - Nonrheumatic aortic (valve) stenosis (5) CHF (congestive heart failure): Qualifiers: Heart failure type: combined systolic and diastolic Heart failure chronicity: acute Qualified Code(s): I50.41 - Acute combined systolic (congestive) and diastolic (congestive) heart failure (6) Varicose veins of bilateral lower extremities with pain: (7) Peripheral vascular disease: (8) Claudication: (9) Colon cancer: Qualifiers: Colon location: unspecified part of colon Qualified Code(s): C18.9 - Malignant neoplasm of colon, unspecified (10) Iron deficiency anemia: Qualifiers: Iron deficiency anemia type: other iron deficiency Qualified Code(s): D 50.8 - Other iron deficiency anemias (11) Peripheral edema: Plan 1. Acute Diastolic Congestive Heart Failure Exacerbation - The patient has a history of congestive heart failure and has failed outpatient diuretic therapy. Presenting with worsening lower extremity edema and shortness of breath. - Echo noted above - Appears euvolemic today Plan: 1. Hold diuretics today 2. Check daily weight 3. Follow up with cardiology outpatient 4. BMP in am 2. Anasarca with Lower Extremity Edema and Blisters - Improving - The patient has significant fluid overload with Anasarca and lower extremity edema complicated by blister formation, likely secondary to congestive heart failure. - Likely due to Venous stasis due to immobility and heart failure. Plan: 1. Improving, lympedema wraps in place elevated 3. Acute Kidney Injury on Chronic Kidney Disease - The patient has a history of chronic kidney disease and now presents with acute kidney injury, likely secondary to volume overload and decreased renal perfusion. - Creatinine was noted to be 1.6 on admission, has now increased to 1.9. Monitor urine output. García was placed on admission - Renal US noted - Increased to 1.9 today Plan: 1. Hold Bumex 2. Gentle rehydration today. LR at 30 ml/hr 3. Repeat BMP in am 4. Atrial Fibrillation/Sick Sinus Syndrome Status Post Pacemaker - The patient has a history of atrial fibrillation, sick sinus syndrome, and pacemaker placement. Currently off anticoagulation due to prior gastrointestinal bleeding. Plan: 1. Continue current antiarrhythmic medications (metoprolol 25 mg daily propafenone 150 TID). 2. Cardiology follow up outpatient 5. Mobility Limitations - The patient is wheelchair-bound and has limited mobility at baseline. Plan: 1. Physical therapy and occupational therapy consulted. 2. Social work involvement for discharge planning and home care arrangements. Discharge Planning -Case management is coordinating the discharge plan and placement details. DVT prophylaxis: Heparin 5000 units Q12 ( continue for now, monitor for bleeding given mildly decreased platelets) Anticipate discharge in 1 day if renal function improves. PDMP PDMP Reviewed: Not Reviewed Attestations 2 Medical Necessity Statement*: Patient requires hospitalization for diastolic CHF exacerbation failure with outpatient diuretic therapy requiring inpatient diuretic therapy Coding Level of Care Code Acute Code for [facility] Diagnoses BENJAMIN (acute kidney injury) N17.9 S/P placement of cardiac pacemaker Z95.0 Sick sinus syndrome I49.5 Nonrheumatic aortic valve stenosis I35.0 Cardiac valve disease etiology: nonrheumatic Diastolic congestive heart failure, unspecified HF chronicity I50.41 Heart failure type: combined systolic and diastolic Heart failure chronicity: acute Varicose veins of bilateral lower extremities with pain I83.813 Peripheral vascular disease I73.9 Claudication I73.9 Malignant neoplasm of colon, unspecified part of colon C18.9 Colon location: unspecified part of colon Other iron deficiency anemia D50.8 Iron deficiency anemia type: other iron deficiency Peripheral edema R60.0
[2024-06-11] MEDS: acetaminophen 500 mg Tablet PO (15:04)
[2024-06-11 17:05] LABS: Glucose Point of Care 130 mg/dL (70-110)
[2024-06-11] MEDS: pantoprazole DR 40 mg Tablet PO (17:33)
[2024-06-12] VITALS (10 sets, daily range): BP systolic 84–108; BP diastolic 51–67; PULSE 59–78; RESP 14–17; TEMP 36.3–36.7; O2SAT 94–98
[2024-06-12] MEDS: heparin 5,000 unit/mL INJ 1 mL 5000 UNIT SUBCUT ×2 (04:57→17:40)
[2024-06-12 06:55] LABS: Blood Urea Nitrogen 36 mg/dL (8-23); Calcium 9.3 mg/dL (8.5-10.5); Carbon Dioxide 28 mmol/L (22-29); Chloride 93 mmol/L (98-107); Creatinine Clr Calc Pharmacy 26.8353; Glucose 95 mg/dL (65-115); Osmolality Calculated 290 mOsm/kg (285-295); Sodium 136 mmol/L (136-145)
[2024-06-12 07:10] LABS: Anion Gap 18.5 (5-19); Potassium 3.5 mmol/L (3.5-5.1)
[2024-06-12] MEDS: sennosides-docusate Tablet 1 TAB PO (09:08)
[2024-06-12] MEDS: lactated ringers 1,000 ML 75 ML IV (09:08)
[2024-06-12] MEDS: pantoprazole DR 40 mg Tablet PO (09:08)
[2024-06-12] MEDS: dilTIAZem 60 mg Tablet PO (09:08)
[2024-06-12] MEDS: propafenone 150 mg Tablet PO ×2 (09:08→20:31)
[2024-06-12] MEDS: metoprolol tartrate 25 mg Tablet PO (09:08)
--- NOTE | 2024-06-12 10:22 | PC.NURSE ---
report received from Rossy, assumed care of patient at this time.
--- NOTE | 2024-06-12 11:18 | XR_ITS ---
WS: [id number] XR chest 1V 01070 REASON FOR EXAM: assess for fluid/infection FINDINGS: Cardiac device over the left chest with trans left subclavian vein leads to the right atrium and right ventricular apex. Cardiac enlargement. Moderate tortuosity and ectasia of the thoracic aorta. There is a right pleural effusion and fluid in the minor fissure. There is also left pleural effusion. There is atelectasis in the right lung. There is obscuration of the left hemidiaphragm contour which presumably is due to lung consolidation and pleural effusion. XR/XR chest 1V 63838 IMPRESSION: Abnormal chest as above. There is been mild progression of abnormality in the l eft lower hemithorax with the right hemithorax relatively stable.
--- NOTE | 2024-06-12 11:19 | P.PN_ITS ---
Subjective 2 Subjective: 83 year old female with a past medical h istory of congestive heart failure, atrial fibrillation/sick sinus syndrome status post pacemaker placement, and chronic kidney disease presents with worsening lower extremity edema and shortness of breath. The patient has failed outpatient diuretic therapy. The patient is noted to have anasarca with lower extremity edema and blisters, likely secondary to congestive heart failure exacerbation. The patient is wheelchair-bound and not very active at baseline. Patients initial laboratory workup in the emergency room a showed a WBC of 5.3, hemoglobin at 10, hematocrit 33 and a platelet count of 144. Sodium 144, potassium 3.7, chloride 98, bicarb 30, BUN 23 and creatinine of 1.6. Prior to this she had a creatinine of 1.0 on June 01.Chest x-ray has showed a cardiomegaly with pulmonary edema and small bilateral pleural effusions. This was on the 07 of June. The patient was started on intravenous Bumex and oral metolazone for diuresis. A García catheter was placed for accurate urine output measurement. Renal US was done which did not show any evidence of hydronephrosis. Renal function remained at around 1.6. Bilateral venous dopplers were done which were also negative for DVT. She was noted to have improvement in bilateral lower extremity edema. Patients weight documented on 06/07 was noted to be 106 which on the was noted to be 128 ( initial may not have been accurate) Since 128kg on the her weight has increased to 131. has had a net negative balance of 1.5-2L. Given worsening renal function bumex was stopped on the . Was restarted on gentle IV hydration. On she was noted to be hypotensive as well with systolic in low 80s. IVF rate was increased to 75 ml/hr. Her antihypertensive medication including cardizem and metoprolol was held. Nephrology was consulted In additional patient was noted to have intermittent change in mental status as well. Mental status was noted on PCP outpatient visit in April. Patient has been at time difficult to arouse in am, however does become more alert as the day progresses. Speech therapy was consulted. Vitals/I&O/Wt Last Vital Signs Temp 97.4 F L 06/12/24 07:57 Pulse 62 06/12/24 08:09 Resp 16 06/12/24 08:09 BP 84/51 06/12/24 07:57 Pulse Ox 96 06/12/24 08:09 O2 Del Method Nasal Cannula 06/12/24 08:09 O2 Flow Rate 2 06/12/24 08:09 06/11/24 06/12/24 06/12/24 22:59 06:59 14:59 Intake Total 240 / 540 0 / 540 672 / 672 Output Total 850 / 850 100 / 950 Balance -610 / -310 -100 / -410 672 / 672 Weight last 48 hrs Weight 131.496 kg Weight 130.997 kg Physical Exam 2 Narrative: General: Ill appearing HEENT : Grossly unremarkable CVS: RRR Chest: at bases,non-labored Abd: Soft, NT,ND Ext: Mild lower extremity edema Urinary Catheter Management: García: Cath Placed During This Visit: yes Reason for Continuing Indwelling Catheter: Other Urinary Catheter Date of Insertion: 06/08/24 Urinary Catheter Time of Insertion: 01:19 Data 06/11/24 05:00 06/12/24 05:43 A&P Assessment and plan (1) BENJAMIN (acute kidney injury): (2) S/P placement of cardiac pacemaker: (3) Sick sinus syndrome: (4) Aortic valve stenosis: Qualifiers: Cardiac valve disease etiology: nonrheumatic Qualified Code(s): I35.0 - Nonrheumatic aortic (valve) stenosis (5) CHF (congestive heart failure): Qualifiers: Heart failure chronicity: acute Heart failure type: combined systolic and diastolic Qualified Code(s): I50.41 - Acute combined systolic (congestive) and diastolic (congestive) heart failure (6) Varicose veins of bilateral lower extremities with pain: (7) Peripheral vascular disease: (8) Claudication: (9) Colon cancer: Qualifiers: Colon location: unspecified part of colon Qualified Code(s): C18.9 - Malignant neoplasm of colon, unspecified (10) Iron deficiency anemia: Qualifiers: Iron deficiency anemia type: other iron deficiency Qualified Code(s): D 50.8 - Other iron deficiency anemias (11) Peripheral edema: Plan 1. Acute Kidney Injury on Chronic Kidney Disease - The patient has a history of chronic kidney disease and now presents with acute kidney injury, likely secondary to volume overload and decreased renal perfusion. - Creatinine was noted to be 1.6 on admission, has now increased to 1.9. Monitor urine output. García was placed on admission - Renal US noted - Increased from 1.6-> 1.9-> 2.0 - Also noted to be hypotensive today. Plan: 1. Hold Bumex 2. Gentle rehydration today. LR increased to 75 3. Nephrology consulted 4. Avoid Hypotension 2. Acute Diastolic Congestive Heart Failure Exacerbation - The patient has a history of congestive heart failure and has failed outpatient diuretic therapy. Presenting with worsening lower extremity edema and shortness of breath. - Echo noted above - Appears euvolemic today Plan: 1. Continue to Hold diuretics 2. Check daily weight 3. Follow up with cardiology outpatient 4. BMP in am 3. Anasarca with Lower Extremity Edema and Blisters - Improving - The patient has significant fluid overload with Anasarca and lower extremity edema complicated by blister formation, likely secondary to congestive heart failure. - Likely due to Venous stasis due to immobility and heart failure. Plan: 1. Improving, lympedema wraps in place elevated Acute Encephalopathy - Likely on chronic, patient was noted to have underlying cognitive disorder however in the past few days this appears to have worsened. Awakes only to stimuli. - Possibly 2/2 metabolic encephalopathy in setting of worsening renal failure, vs infectious. Plan: - Check ABG - CT head w/o contrast - NPO until more alert and able to take PO 5. Atrial Fibrillation/Sick Sinus Syndrome Status Post Pacemaker - The patient has a history of atrial fibrillation, sick sinus syndrome, and pacemaker placement. Currently off anticoagulation due to prior gastrointestinal bleeding. Plan: 1. Continue current antiarrhythmic medications (metoprolol 25 mg daily propafenone 150 TID). 2. Cardiology follow up outpatient 6. Mobility Limitations - The patient is wheelchair-bound and has limited mobility at baseline. Plan: 1. Physical therapy and occupational therapy consulted. 2. Social work involvement for discharge planning and home care arrangements. Discharge Planning -Case management is coordinating the discharge plan and placement details. DVT prophylaxis: Heparin 5000 units Q12 ( continue for now, monitor for bleeding given mildly decreased platelets) Anticipate discharge in 1 day if renal function improves. PDMP PDMP Reviewed: Not Reviewed Attestations 2 Medical Necessity Statement*: Patient requires hospitalization for diastolic CHF exacerbation failure with outpatient diuretic therapy requiring inpatient diuretic therapy Coding Level of Care Code Acute Code for [facility]wd Diagnoses BENJAMIN (acute kidney injury) N17.9 S/P placement of cardiac pacemaker Z95.0 Sick sinus syndrome I49.5 Nonrheumatic aortic valve stenosis I35.0 Cardiac valve disease etiology: nonrheumatic Diastolic congestive heart failure, unspecified HF chronicity I50.41 Heart failure chronicity: acute Heart failure type: combined systolic and diastolic Varicose veins of bilateral lower extremities with pain I83.813 Peripheral vascular disease I73.9 Claudication I73.9 Malignant neoplasm of colon, unspecified part of colon C18.9 Colon location: unspecified part of colon Other iron deficiency anemia D50.8 Iron deficiency anemia type: other iron deficiency Peripheral edema R60.0
--- NOTE | 2024-06-12 13:22 | P.CONIM_ITS ---
Providers/Reason For Consult 2 Consulting Physician/Specialty*: reddy antony md/ telenephrology Reason for Consult*: BENJAMIN Requesting Physician: Dr Durant Attending Physician: Pavel Durant Primary Care Provider: Princess Grande MD History of Present Illness History of Present Illness Yadira Krishnan is a 83 year old female with history of colon cancer status post hemicolectomy, sick sinus syndrome and a fib status post pacemaker, not on anticoagulation secondary to GI bleed, diastolic CHF- HFpEF, severly elevated filling pressures, moderate pulm htn, moderate MR Pt presented on 06/07/24 with leg swelling and blistering, inability to walk and generalized weakness. 3 weeks prior to admission she was started on Bumex. Patient was admitted and started on metolazone and bumex. her baseline cr is 0.8- 1 mg/dl. by may on admission her cr chuck to 1.6 mg/dl- it was stable there. now cr chuck to 2 mg/dl and renal is called to consult. patient had lymphedema wraps placed on her legs she had a mims catheter placed. renal us revealed small kidneys -rt kidney 7.5 cm, left 8.3 cm with a mims in bladder. today cxr revealed b/l pleural effusions-small Review of Systems 2 Narrative: poor historian. she is tired, poor appetite. no cp, no sob at rest. + leg edema. Medications/Allergies Home Medications ?Medication ?Instructions ?Recorded ?Confirmed ?Last Taken ?Type fexofenadine 60 mg tablet (Anat 60 mg PO DAILY 07/3006/08/24 03/03/24 History Allergy) red yeast rice 600 mg capsule 600 mg PO BID 09/13/23 0 06/08/24 03/03/24 History diltiazem HCl 60 mg tablet 60 mg PO TID 90 days #270 t abs 12/04/23 06/08/24 03/03/24 Rx metoprolol tartrate 25 mg tablet 25 mg PO .AM and prn 12/24/23 06/08/24 03/03/24 History montelukast 10 mg tablet See Rx Instructions .Route 1 05/26/23 06/08/24 Unknown Rx .COMPLEX #90 tabs tramadol 50 mg tablet 50 mg PO BID PRN pain #60 ta bs 04/25/24 06/08/24 Unknown Rx ferrous sulfate 325 mg (65 mg 325 mg PO DAILY #90 tabs 06/03/24 06/08/24 Unknown Rx iron) tablet propafenone 150 mg tablet See Rx Instructions .Route 0 06/03/24 06/08/24 Unknown Rx .COMPLEX #270 tabs bumetanide 1 mg tablet 1 mg PO DAILY for swelling i nstead 06/10/24 Unknown Rx of furosemide #90 tabs Allergies Allergy/AdvReac Type Severity Reaction Status Date / Time No Known Allergies Allergy Verified 06/08/24 16:49 Current Medications Generic Name Dose Route Start Last Admin Trade Name Freq PRN Reason Stop Dose Admin Acetaminophen 500 mg 06/08/24 00:02 06/11/24 15:04 Acetaminophen 500 Mg Tablet PO 500 mg Q4H PRN Administration fever Diltiazem HCl 60 mg 06/08/24 09:00 06/12/24 09:08 Diltiazem 60 Mg Tablet PO 60 mg TID LAMONT Administration Heparin Sodium (Porcine) 5,000 unit 06/08/24 06:00 06/12/24 04:57 Heparin 5,000 Unit/Ml Inj 1 Ml SUBCUT 5,000 unit Q12H LAMONT Administration Lactated Ringer's 1,000 mls @ 75 mls/hr 06/11/24 09:15 06/12/24 09:08 Lactated Ringers IV 75 mls/hr .[id number] LAMONT Administration Metoprolol Tartrate 25 mg 06/08/24 09:00 06/12/24 09:08 Metoprolol Tartrate 25 Mg Tablet PO 25 mg BID@0900,2100 LAMONT Administration Pantoprazole Sodium 40 mg 06/11/24 18:00 06/12/24 09:[address] 40 Mg Tablet PO 40 mg BID LAMONT Administration Propafenone HCl 150 mg 06/08/24 09:00 06/12/24 09:08 Propafenone 150 Mg Tablet PO 150 mg TID LAMONT Administration Senna/Docusate Sodium 1 tab 06/08/24 09:00 06/12/24 09:08 Sennosides-Docusate Tablet PO 1 tab DAILY LAMONT Administration PFSH Acute 2 PFSH: Medical History Dyslipidemia Benign essential HTN Lower GI bleed History of 2019 novel coronavirus disease (COVID-19) Sick sinus syndrome Varicose veins of bilateral lower extremities with pain CHF (congestive heart failure) last echocardiogram 11/2016, LVEF 65%, no valvular abnormality. Hyperlipidemia HTN (hypertension) Congestive heart failure Osteoarthritis Aortic valve stenosis Anxiety Bradycardia by electrocardiogram Hypertension Chronic atrial fibrillation Hypercholesteremia Surgical History S/P placement of cardiac pacemaker Hx of cataract extraction Hx of cholecystectomy Hx of cholecystectomy Family History Father CAD (coronary artery disease) Mother Cancer Lung Grandmother Diabetes Denies family history of Clotting disorder Dementia Hyperlipidemia Psychiatric illness Chronic kidney disease (CKD) Suicide Anesthesia complication Bleeding disorder Lung disease Hypertension Stroke Social History Smoking and tobacco/nicotine status: never used tobacco/nicotine Alcohol intake: never Substance/Drug Use: never Vitals/I&O/Wt Last Vital Signs Temp 97.5 F L 06/12/24 11:53 Pulse 59 L 06/12/24 11:53 Resp 14 06/12/24 11:53 BP 98/62 06/12/24 11:53 Pulse Ox 94 06/12/24 11:53 O2 Del Method Nasal Cannula 06/12/24 11:53 O2 Flow Rate 2 06/12/24 08:09 06/11/24 06/12/24 06/12/24 22:59 06:59 14:59 Intake Total 240 / 540 0 / 540 672 / 672 Output Total 850 / 850 100 / 950 Balance -610 / -310 -100 / -410 672 / 672 Weight last 48 hrs Weight 131.496 kg Weight 130.997 kg Physical Exam 2 Narrative: elderly lady in bed, no resp distres VS noted and BP is low heent- nc/at, eomi, anicteroc neck supple lungs dull bases, otherwise clear heart-regular, paced rhythm, +s1, s2 abd soft, + bs ext + b/l lymphedema neuro- sleepy Urinary Catheter Management: Mims: Cath Placed During This Visit: yes Reason for Continuing Indwelling Catheter: Other Urinary Catheter Date of Insertion: 06/08/24 Urinary Catheter Time of Insertion: 01:19 Data 06/11/24 05:00 06/12/24 05:43 A&P Assessment and plan (1) BENJAMIN (acute kidney injury): 83 year old female with history of colon cancer status post hemicolectomy, sick sinus syndrome and a fib status post pacemaker, not on anticoagulation secondary to GI bleed, diastolic CHF- HFpEF, severly elevated filling pressures, moderate pulm htn, moderate MR. Pt presented on 06/07/24 with leg swelling and blistering, inability to walk and generalized weakness. 3 weeks prior to admission she was started on Bumex. Patient was admitted and started on diuretics- her baseline cr is 0.8- 1 mg/dl. by may on admission her cr chuck to 1.6 mg/dl- it was stable there. now cr chuck to 2 mg/dl. cr was held yesterday and cr chuck from 1.9 - 2 mg/dl 1. BENJAMIN- awaiting urinalysis. send random ur pr/ cr, microalbumin send c3, c4, cpk send serologies check a bladder scan -she has lymphedema- monitor off diuretics, with gentle ivf -no rash, fever, or eosinophilia- less likely AIN -hypotension could have cause ATN. she might be prerenal from diuretics or from CRS 2. anemia and BENJAMIN - check spep, sife, free light chains 3. HFpEF- grade III/ IV diastolic dysfunction, RVSP elevated at 38, and moderate MR -ayloidosis could cause LVH and BENJAMIN- please ask Cardiology to review her echo to see if it is consistent w/ amyloidosis -no brionna-i, arb, aldactone, SGLT2-i w/ BENJAMIN seen and examined w/ RN using A/V equipment Plan see above PDMP PDMP Reviewed: Not Reviewed Consult Attestations 2 Medical Necessity Statement: BENJAMIN Time Spent in Patient Care: Greater than 35 minutes (>than 50% of time spent in counselling and/or direct pt care on unit) . Coding Level of Care Code Acute Code for [facility] Diagnoses BENJAMIN (acute kidney injury) N17.9
[2024-06-12 13:58] LABS: Add Urine Microscopic? YES; Bilirubin Urine 1+ (Negative); Blood Urine 3+ (Negative); Glucose Urine UA Norm (Normal); Ketones Urine Negative (Negative); Leukocyte Esterase Urine 2+ (Negative); Nitrate Urine Negative (Negative); Protein Urine 1+ (Negative); UA Manual Slide Review YES; Urine Appearance Cloudy (CLEAR); Urine Color Yellow (Yellow); Urobilinogen Urine 1 mg/dL (Negative); pH Urine 5 (5-7)
[2024-06-12 14:02] LABS: Add Urine Culture? Yes; Bacteria Urine 2+ /hpf; RBC Urine 50-80 /hpf (0-2); WBC Urine 25-40 /hpf (0-5)
--- NOTE | 2024-06-12 14:34 | PC.NURSE ---
patient has been lethargic most of the day. Dr. Durant was notified of this. Orders were placed for ABG to be drawn. Pt too lethargic to swallow pills at this time, Dr. Durant notified of the inability to take 1500 dose rthymol at this time
[2024-06-12 14:41] LABS: ABG PCO2 55.2 mmHg (35-45); ABG PH Result 7.38 (7.35-7.45); Alveolar-Arterial Oxygen Gradi 0.9 mmHg (5-10); Arterial Blood Gas Hematocrit 32.8 % (37-47); Base Excess ABG 6.4 mmol/L (-2.0-2.0); Blood Gas Allen Test Pos; Blood Gas Operator Identificat WALCI; Blood Gas Sample Site Radial, right; Blood Gas Sample Type Arterial; Carboxyhemoglobin 1.2 %THgb (0.4-20.1); HCO3 ABG 32.7 mmol/L (22-26); HGB O2 Sat 93.7 % (95-100); Ionized Calcium Level - ABG 1.2 mmol/L (1.1-1.4); Methemoglobin 0.9 % (0.4-1.5); Oxygen Device NC; Oxygen Saturation ABG 95.7; PO2 ABG 77.6 mmHg (80.0-100.0); Potassium Level - ABG 3.3 mmol/L (3.5-5.0); Total Hemoglobin 10.7 g/dL (12-16)
[2024-06-12 15:21] LABS: Potassium, Radom Urine 48 mmol/L; Urine Random Chloride 37 mmol/L
[2024-06-12 15:24] LABS: Urine Random Sodium 12 mmol/L
--- NOTE | 2024-06-12 15:43 | PC.NURSE ---
Patient yelling out help, help When this nurse gets to room, patient is resting in bed with eyes closed, moving her head back and forth moaning. When asked if she is in pain she says yes but never opens her eyes. This nurse asked Yadira, where are you hurting? She replied I'm not hurting Dr. Durant notified of change in condition and the possibility of patient being in pain. PRN Tylenol is ordered at this time, however, patient unable to comprehend swallowing pills. No new orders received at this time
--- NOTE | 2024-06-12 16:07 | PC.NURSE ---
Attempted to turn patient multiple times with Login, DRESS OPERATOR throughout the shift. Once turned to one side or the other, patient would wiggle down in the bed and end up back in the supine position.
--- NOTE | 2024-06-12 16:15 | CTR_ITS ---
PROCEDURE INFORMATION: Exam: CT Head Without Contrast Exam date and time: 06/12/2024 5:05 PM Age: 83 years old Clinical indication: Malaise or fatigue; Additional info: Depressed mental status TECHNIQUE: Imaging protocol: Computed tomography of the head without contrast. Radiation optimization: All CT scans at this facility use at least one of these dose optimization techniques: automated exposure control; mA and/or kV adjustment per patient size (includes targeted exams where dose is matched to clinical indication); or iterative reconstruction. COMPARISON: No relevant prior studies available. RADIATION DOSE METRICS: Total DLP (mGy-cm): 990.48 FINDINGS: Brain: No hemorrhage. No edema. Moderate diffuse cerebral atrophy and sequela of chronic small vessel ischemic disease. No mass effect. Cerebral ventricles: No ventriculomegaly. Paranasal sinuses: Visualized sinuses are unremarkable. No fluid levels. Mastoid air cells: Visualized mastoid air cells are well aerated. Bones: Unremarkable. No acute fracture. Soft tissues: Unremarkable. CT/CT head wo con* [id number] IMPRESSION: No acute intracranial abnormality.
[2024-06-12 16:26] LABS: Uric Acid 12.6 mg/dL (2.4-5.7)
[2024-06-12 16:38] LABS: Hepatitis C Virus Antibody Non-Reactive (Nonreactive)
[2024-06-12 16:47] LABS: Complement C3 108 mg/dL (90-180); Creatine Phosphokinase 56 U/L (26-192)
[2024-06-13] VITALS (8 sets, daily range): BP systolic 85–124; BP diastolic 53–74; PULSE 60–77; RESP 14–18; TEMP 36.3–36.6; O2SAT 90–97
--- NOTE | 2024-06-13 04:10 | PC.NURSE ---
pt has new skin tear r ac, edd
[2024-06-13] MEDS: lactated ringers 1,000 ML 75 ML IV (05:00)
[2024-06-13] MEDS: heparin 5,000 unit/mL INJ 1 mL 5000 UNIT SUBCUT ×2 (05:00→18:00)
[2024-06-13 05:15] LABS: Basophils % 0.2 %; Eosinophils # 0.2 10^3/uL (0.0-0.8); Eosinophils % 3.6 %; Hematocrit 34.1 % (36-47); Lymphocytes # 1.4 10^3/uL (0.8-4.8); Mean Corpuscular HGB Conc 30.2 g/dL (30-55); Mean Corpuscular Hemoglobin 27.2 pg (27-33); Mean Corpuscular Volume 90.2 fl (85-98); Mean Platelet Volume 9.9 fL (7.4-10.4); Monocytes # 0.6 10^3/uL (0.2-0.9); Neutrophils # 2.84 10^3/uL (1.8-7.7); Neutrophils % 56.8 %; Nucleated Red Blood Cells # 0.1 /100WBC; Platelet Count 152 10^3/cmm (157-399); Red Blood Count 3.78 10^6/uL (3.85-5.65); Red Cell Distribution Width 19.4 % (12.1-15.1)
[2024-06-13 05:41] LABS: Alanine Aminotransferase 54 U/L (0-33); Albumin Level 3.3 g/dL (3.5-5.2); Alkaline Phosphatase 150 U/L (35-105); Anion Gap 14.4 (5-19); Aspartate Amino Transferase 58 U/L (0-32); Blood Urea Nitrogen 40 mg/dL (8-23); Calcium 9.5 mg/dL (8.5-10.5); Carbon Dioxide 32 mmol/L (22-29); Chloride 96 mmol/L (98-107); Creatinine Clr Calc Pharmacy 24.2886; Globulin 2.4 g/dL (1.3-4.6); Glucose 76 mg/dL (65-115); Osmolality Calculated 297 mOsm/kg (285-295); Potassium 3.4 mmol/L (3.5-5.1); Sodium 139 mmol/L (136-145); Total Bilirubin 1.4 mg/dL (0.15-1.2); Total Protein 5.7 g/dL (6.6-8.7)
[2024-06-13 05:42] LABS: Ferritin 56 ng/mL (15-150); Iron 17 ug/dL (37-145); Magnesium 1.9 mg/dL (1.7-2.3); Percent Saturation 4.8 % (20-50); Phosphorus 4.4 mg/dL (2.5-4.5); Total Iron Binding Capacity 354 mcg/dl; Unsaturated Iron Binding 337 ug/dL (112-347)
[2024-06-13 05:45] LABS: Parathyroid Hormone 41.5 pg/mL (15-65)
[2024-06-13 05:55] LABS: 25 Hydroxy Vitamin D 45 ng/mL (30-100)
[2024-06-13 06:49] LABS: Anti-streptolysin O 59 IU/mL (<200)
[2024-06-13 08:00] LABS: PROTEIN, TOTAL 5.8 g/dL (6.1-8.1)
--- NOTE | 2024-06-13 08:46 | PC.SLP ---
Attempted speech therapy but could not obtain arousal state necessary for treatment
[2024-06-13] MEDS: pantoprazole DR 40 mg Tablet PO (09:45)
[2024-06-13] MEDS: propafenone 150 mg Tablet PO (09:45)
[2024-06-13] MEDS: sennosides-docusate Tablet 1 TAB PO (09:45)
--- NOTE | 2024-06-13 10:14 | PC.SOCIAL ---
IMM Updated Updated pt on IMM. No questions voiced. Provided pt a copy. Initialed, dated, & timed copy in chart.
[2024-06-13] MEDS: piperacillin-tazobactam 3.375 GM in sodium chloride 0.9% (plus) 50 ML IV ×2 (13:34→20:52)
[2024-06-13 14:30] LABS: KAPPA LIGHT CHAIN, FREE, SERUM 68.1 mg/L (3.3-19.4); LAMBDA LIGHT CHAIN, FREE, SERU 30.9 mg/L (5.7-26.3)
--- NOTE | 2024-06-13 18:55 | P.PN_ITS ---
Subjective 2 Subjective: sleeping , arousable Medications: Reviewed: Yes Vitals/I&O/Wt Last Vital Signs Temp 97.6 F 06/13/24 15:47 Pulse 60 06/13/24 15:47 Resp 16 06/13/24 15:47 BP 85/53 06/13/24 15:47 Pulse Ox 90 06/13/24 15:47 O2 Del Method Nasal Cannula 06/13/24 15:47 O2 Flow Rate 1.5 06/13/24 08:04 06/13/24 06/13/24 06/13/24 06:59 14:59 22:59 Intake Total 0 / 1672 340 / 340 50 / 390 Output Total 400 / 500 100 / 100 Balance -400 / 1172 340 / 340 -50 / 290 Weight last 48 hrs Weight 130.589 kg Weight 131.496 kg Physical Exam 2 Narrative: elderly lady in bed, no resp distres VS noted and BP is low heent- nc/at, eomi, anicteroc neck supple lungs dull bases, otherwise clear heart-regular, paced rhythm, +s1, s2 abd soft, + bs ext + b/l lymphedema neuro- sleepy Urinary Catheter Management: García: Cath Placed During This Visit: yes Reason for Continuing Indwelling Catheter: Acute Urinary Retention or Obstruction Urinary Catheter Date of Insertion: 06/08/24 Urinary Catheter Time of Insertion: 01:19 Data 06/13/24 04:12 06/13/24 04:12 A&P Assessment and plan (1) BENJAMIN (acute kidney injury): 83 year old female with history of colon cancer status post hemicolectomy, sick sinus syndrome and a fib status post pacemaker, not on anticoagulation secondary to GI bleed, diastolic CHF- HFpEF, severly elevated filling pressures, moderate pulm htn, moderate MR. Pt presented on 06/07/24 with leg swelling and blistering, inability to walk and generalized weakness. 3 weeks prior to admission she was started on Bumex. Patient was admitted and started on diuretics- her baseline cr is 0.8- 1 mg/dl. by may on admission her cr chuck to 1.6 mg/dl- it was stable there. now cr chuck to 2 mg/dl. 1. BENJAMIN- Creatinine is up to 2.2 today, diuretics are on hold. Urine analysis showed 1+ protein and 3+ blood +RBCs . Will check urine protein to creatinine ratio, urine sodium is 12 indicating intravascular volume depletion likely from diuresis -Complements normal , CPK normal - Has elevated Free light chains ? Myeloma -she has lymphedema- monitor off diuretics, with gentle ivf -no rash, fever, or eosinophilia- less likely AIN -hypotension could have cause ATN. she might be prerenal from diuretics or from CRS 2. anemia and BENJAMIN - Has elevated Free light chains, needs Hematology eval 3. HFpEF- grade III/ IV diastolic dysfunction, RVSP elevated at 38, and moderate MR -Amyloidosis could cause LVH and BENJAMIN- review with cardiology -no brionna-i, arb, aldactone, SGLT2-i w/ BENJAMIN seen and examined w/ RN using A/V equipment Plan see above PDMP PDMP Reviewed: Not Reviewed Attestations 2 Medical Necessity Statement*: per nirali Coding Level of Care Code Acute Code for [facility] Fwd Diagnoses BENJAMIN (acute kidney injury) N17.9
--- NOTE | 2024-06-13 19:56 | P.PN_ITS ---
Subjective 2 Subjective: 83 year old female with a past medical h istory of congestive heart failure, atrial fibrillation/sick sinus syndrome status post pacemaker placement, and chronic kidney disease presents with worsening lower extremity edema and shortness of breath. The patient has failed outpatient diuretic therapy. The patient is noted to have anasarca with lower extremity edema and blisters, likely secondary to congestive heart failure exacerbation. The patient is wheelchair-bound and not very active at baseline. Patients initial laboratory workup in the emergency room a showed a WBC of 5.3, hemoglobin at 10, hematocrit 33 and a platelet count of 144. Sodium 144, potassium 3.7, chloride 98, bicarb 30, BUN 23 and creatinine of 1.6. Prior to this she had a creatinine of 1.0 on June 01.Chest x-ray has showed a cardiomegaly with pulmonary edema and small bilateral pleural effusions. This was on the 07 of June. The patient was started on intravenous Bumex and oral metolazone for diuresis. A García catheter was placed for accurate urine output measurement. Renal US was done which did not show any evidence of hydronephrosis. Renal function remained at around 1.6. Bilateral venous dopplers were done which were also negative for DVT. She was noted to have improvement in bilateral lower extremity edema. Patients weight documented on 06/07 was noted to be 106 which on the was noted to be 128 ( initial may not have been accurate) Since 128kg on the her weight has increased to 131. has had a net negative balance of 1.5-2L. Given worsening renal function bumex was stopped on the . Was restarted on gentle IV hydration. On she was noted to be hypotensive as well with systolic in low 80s. IVF rate was increased to 75 ml/hr. Her antihypertensive medication including cardizem and metoprolol was held. Nephrology was consulted In additional patient was noted to have intermittent change in mental status as well. Mental status was noted on PCP outpatient visit in April. Patient has been at time difficult to arouse in am, however does become more alert as the day progresses. 06/13 Patients family was at bedside today. She was slightly more alert than yesterday. There was some concern of possible development of infection. She was requiring 1.5 L via nasal cannula. Was having some cough. Vitals/I&O/Wt Last Vital Signs Temp 97.4 F L 06/13/24 19:46 Pulse 60 06/13/24 19:46 Resp 16 06/13/24 19:46 BP 100/66 06/13/24 19:46 Pulse Ox 95 06/13/24 19:46 O2 Del Method Nasal Cannula 06/13/24 19:46 O2 Flow Rate 1.5 06/13/24 08:04 06/13/24 06/13/24 06/13/24 06:59 14:59 22:59 Intake Total 0 / 1672 340 / 340 360 / 700 Output Total 400 / 500 100 / 100 Balance -400 / 1172 340 / 340 260 / 600 Weight last 48 hrs Weight 130.589 kg Weight 131.496 kg Physical Exam 2 Urinary Catheter Management: García: Cath Placed During This Visit: yes Reason for Continuing Indwelling Catheter: Acute Urinary Retention or Obstruction Urinary Catheter Date of Insertion: 06/08/24 Urinary Catheter Time of Insertion: 01:19 Data 06/13/24 04:12 06/13/24 04:12 A&P Assessment and plan (1) BENJAMIN (acute kidney injury): (2) S/P placement of cardiac pacemaker: (3) Sick sinus syndrome: (4) Aortic valve stenosis: Qualifiers: Cardiac valve disease etiology: nonrheumatic Qualified Code(s): I35.0 - Nonrheumatic aortic (valve) stenosis (5) CHF (congestive heart failure): Qualifiers: Heart failure type: combined systolic and diastolic Heart failure chronicity: acute Qualified Code(s): I50.41 - Acute combined systolic (congestive) and diastolic (congestive) heart failure (6) Varicose veins of bilateral lower extremities with pain: (7) Peripheral vascular disease: (8) Claudication: (9) Colon cancer: Qualifiers: Colon location: unspecified part of colon Qualified Code(s): C18.9 - Malignant neoplasm of colon, unspecified (10) Iron deficiency anemia: Qualifiers: Iron deficiency anemia type: other iron deficiency Qualified Code(s): D 50.8 - Other iron deficiency anemias (11) Peripheral edema: Plan 1. Acute Kidney Injury on Chronic Kidney Disease - The patient has a history of chronic kidney disease and now presents with acute kidney injury, likely secondary to volume overload and decreased renal perfusion. - Creatinine was noted to be 1.6 on admission, has now increased to 1.9. Monitor urine output. García was placed on admission - Renal US noted - Increased from 1.6-> 1.9-> 2.0 - 2.2 - Also noted to be hypotensive, Plan: 1. Hold Bumex 2. Gentle rehydration today. LR increased to 75 3. Nephrology consulted 4. Avoid Hypotension 2. Possible Left Lower Lobe Pneumonia? - Noted to have cough, Requring supplemental oxygen. - Was not able to swallow. Concern for some aspiration. - Chest x-ray was done which showed cardiac enlargement, mild tortuosity and ectasia of the thoracic aorta atelectasis in the right lung and obscure left hemidiaphragm contour due to lung consolidation and pleural effusion. Plan: 1. Possibly related to fluid and/or atelectasis however is consolidative changes in the left for noted to be worse. Given patients mental status change in these chest x-ray findings will empirically start her on IV antibiotic with Zosyn. 3. Acute Diastolic Congestive Heart Failure Exacerbation - The patient has a history of congestive heart failure and has failed outpatient diuretic therapy. Presenting with worsening lower extremity edema and shortness of breath. Plan: 1. Continue to Hold diuretics 2. Check daily weight 3. Follow up with cardiology outpatient 4. BMP in am 5. Currently on Gentle IV hydration 4. Chronic Lymphedema - The patient has significant fluid overload with Anasarca and lower extremity edema complicated by blister formation, likely secondary to congestive heart failure. - Likely due to Venous stasis due to immobility and heart failure. Plan: 1. Improving, lympedema wraps in place elevated 5. Acute Encephalopathy - Likely on chronic, patient was noted to have underlying cognitive disorder however in the past few days this appears to have worsened. Awakes only to stimuli. - Possibly 2/2 metabolic encephalopathy in setting of worsening renal failure, vs infectious. Plan: 1.Check ABG 2. CT head w/o contrast 3. NPO until more alert and able to take PO 4. Will plan to consult Neurology if no improvement 5. Also may consider EEG 6. Atrial Fibrillation/Sick Sinus Syndrome Status Post Pacemaker - The patient has a history of atrial fibrillation, sick sinus syndrome, and pacemaker placement. Currently off anticoagulation due to prior gastrointestinal bleeding. Plan: 1. Her cardizem, metoprolol and propafenone have been on hold due to above 2. Continue to monitor on telemetry DVT prophylaxis: Heparin 5000 units Q12 PDMP PDMP Reviewed: Not Reviewed Attestations 2 Medical Necessity Statement*: Patient requires hospitalization for diastolic CHF exacerbation failure with outpatient diuretic therapy requiring inpatient diuretic therapy Coding Level of Care Code Acute Code for Chg Fwd Diagnoses BENJAMIN (acute kidney injury) N17.9 S/P placement of cardiac pacemaker Z95.0 Sick sinus syndrome I49.5 Nonrheumatic aortic valve stenosis I35.0 Cardiac valve disease etiology: nonrheumatic Diastolic congestive heart failure, unspecified HF chronicity I50.41 Heart failure type: combined systolic and diastolic Heart failure chronicity: acute Varicose veins of bilateral lower extremities with pain I83.813 Peripheral vascular disease I73.9 Claudication I73.9 Malignant neoplasm of colon, unspecified part of colon C18.9 Colon location: unspecified part of colon Other iron deficiency anemia D50.8 Iron deficiency anemia type: other iron deficiency Peripheral edema R60.0
[2024-06-13 21:13] LABS: ALBUMIN 3.1 g/dL (3.8-4.8); ALPHA 1 GLOBULIN 0.4 g/dL (0.2-0.3); ALPHA 2 GLOBULIN 0.7 g/dL (0.5-0.9); BETA 1 GLOBULIN 0.5 g/dL (0.4-0.6); BETA 2 GLOBULIN 0.4 g/dL (0.2-0.5); GAMMA GLOBULIN 0.8 g/dL (0.8-1.7)
[2024-06-14] VITALS (10 sets, daily range): BP systolic 105–121; BP diastolic 56–79; PULSE 77–92; RESP 13–18; TEMP 36.4–36.8; O2SAT 90–96
[2024-06-14] MEDS: lactated ringers 1,000 ML 75 ML IV ×2 (02:16→14:51)
[2024-06-14 04:18] LABS: Basophils % 0.2 %; Eosinophils # 0.1 10^3/uL (0.0-0.8); Eosinophils % 1.7 %; Hematocrit 34.5 % (36-47); Lymphocytes # 1.5 10^3/uL (0.8-4.8); Lymphocytes % 23.6 %; Mean Corpuscular HGB Conc 29.9 g/dL (30-55); Mean Corpuscular Hemoglobin 28.1 pg (27-33); Mean Corpuscular Volume 94.3 fl (85-98); Mean Platelet Volume 9.5 fL (7.4-10.4); Monocytes # 0.8 10^3/uL (0.2-0.9); Monocytes % 12.2 %; Neutrophils # 3.96 10^3/uL (1.8-7.7); Nucleated Red Blood Cells # 0.1 /100WBC; Nucleated Red Blood Cells % 0.9 %; Platelet Count 124 10^3/cmm (157-399); Red Blood Count 3.66 10^6/uL (3.85-5.65); Red Cell Distribution Width 19.6 % (12.1-15.1); White Blood Count 6.39 10^3/uL (3.29-11.43)
[2024-06-14 04:28] LABS: Alanine Aminotransferase 54 U/L (0-33); Albumin Level 2.9 g/dL (3.5-5.2); Alkaline Phosphatase 148 U/L (35-105); Aspartate Amino Transferase 75 U/L (0-32); Blood Urea Nitrogen 41 mg/dL (8-23); Calcium 9.4 mg/dL (8.5-10.5); Carbon Dioxide 24 mmol/L (22-29); Chloride 95 mmol/L (98-107); Creatinine Clr Calc Pharmacy 24.2886; Globulin 2.8 g/dL (1.3-4.6); Glucose 64 mg/dL (65-115); Osmolality Calculated 292 mOsm/kg (285-295); Sodium 137 mmol/L (136-145); Total Bilirubin 1.7 mg/dL (0.15-1.2); Total Protein 5.7 g/dL (6.6-8.7)
[2024-06-14 04:31] LABS: Anion Gap 21.9 (5-19); Potassium 3.9 mmol/L (3.5-5.1)
[2024-06-14] MEDS: piperacillin-tazobactam 3.375 GM in sodium chloride 0.9% (plus) 50 ML IV ×3 (04:42→20:07)
[2024-06-14 04:49] LABS: Magnesium 1.9 mg/dL (1.7-2.3); Phosphorus 4.4 mg/dL (2.5-4.5)
[2024-06-14] MEDS: heparin 5,000 unit/mL INJ 1 mL 5000 UNIT SUBCUT ×2 (05:11→17:16)
[2024-06-14] MEDS: acetaminophen 500 mg Tablet PO (05:21)
[2024-06-14 05:22] LABS: Procalcitonin 0.11 ng/mL (0-0.5)
[2024-06-14] MEDS: HYDROcodone-acetaminophen 5-325 mg Tablet 1 TAB PO (05:57)
--- NOTE | 2024-06-14 14:15 | PM.PN ---
Subjective Subjective: somloment Medications: Reviewed: Yes Vitals/I&O/Wt Last Vital Signs Temp 97.7 F 06/14/24 11:57 Pulse 83 06/14/24 13:48 Resp 16 06/14/24 11:57 BP 112/71 06/14/24 11:57 Pulse Ox 90 06/14/24 11:57 O2 Del Method Nasal Cannula 06/14/24 11:57 O2 Flow Rate 1 06/14/24 08:13 06/13/24 06/14/24 06/14/24 22:59 06:59 14:59 Intake Total 448.75 / 788.75 132.5 / 921.25 50 / 50 Output Total 100 / 100 150 / 250 Balance 348.75 / 688.75 -17.5 / 671.25 50 / 50 Weight last 48 hrs Weight 133.538 kg Weight 130.589 kg Physical Exam Narrative: elderly lady in bed, no resp distres VS noted and BP is low heent- nc/at, eomi, anicteroc neck supple lungs dull bases, otherwise clear heart-regular, paced rhythm, +s1, s2 abd soft, + bs ext + b/l lymphedema neuro- sleepy Urinary Catheter Management: García: Cath Placed During This Visit: yes Reason for Continuing Indwelling Catheter: Other Urinary Catheter Date of Insertion: 06/08/24 Urinary Catheter Time of Insertion: 01:19 Data 06/14/24 03:34 06/14/24 03:34 A&P Assessment and plan (1) BENJAMIN (acute kidney injury): 83 year old female with history of colon cancer status post hemicolectomy, sick sinus syndrome and a fib status post pacemaker, not on anticoagulation secondary to GI bleed, diastolic CHF- HFpEF, severly elevated filling pressures, moderate pulm htn, moderate MR. Pt presented on 06/07/24 with leg swelling and blistering, inability to walk and generalized weakness. 3 weeks prior to admission she was started on Bumex. Patient was admitted and started on diuretics- Her baseline cr is 0.8- 1 mg/dl. by may on admission her cr chuck to 1.6 mg/dl- it was stable there. now cr chuck to 2 mg/dl. 1. BENJAMIN- Creatinine is up to 2.2 today, diuretics are on hold. Urine analysis showed 1+ protein and 3+ blood +RBCs . Will check urine protein to creatinine ratio, urine sodium is 12 indicating intravascular volume depletion likely from diuresis -Complements normal , CPK normal - Has elevated Free light chains with increased K/L ratio , No M spike -Hematology eval as out pt - Cr stable -she has lymphedema- diuretics on hold - resumed today , added IV lbumin -no rash, fever, or eosinophilia- less likely AIN -hypotension could have cause ATN. she might be prerenal from diuretics or from CRS 2. anemia and BENJAMIN - Has elevated Free light chains, needs Hematology eval 3. HFpEF- grade III/ IV diastolic dysfunction, RVSP elevated at 38, and moderate MR -Amyloidosis could cause LVH with restrictive pattern and BENJAMIN- review with cardiology -no brionna-i, arb, aldactone, SGLT2-i w/ BENJAMIN seen and examined w/ RN using A/V equipment Plan see above PDMP PDMP Reviewed: Not Reviewed Attestations Medical Necessity Statement*: per [facility] Coding Level of Care Code Acute Code for [facility] Fwd Diagnoses BENJAMIN (acute kidney injury) N17.9
--- NOTE | 2024-06-14 14:19 | USR_ITS ---
PROCEDURE INFORMATION: Exam: US Abdomen, Limited; Right Upper Quadrant Exam date and time: 06/14/2024 6:24 PM Age: 83 years old Clinical indication: Abnormal findings; Abnormal lab test; Other: Lft increasing TECHNIQUE: Imaging protocol: Real time ultrasound of the abdomen with image documentation. Limited exam focused on the right upper quadrant. COMPARISON: US renal BI* [id number] 06/08/2024 2:19 PM FINDINGS: Pleural spaces: Questionable pleural effusion. Liver: No suspicious hepatic masses. Gallbladder: Status post cholecystectomy. Biliary ducts: No evidence of biliary ductal dilation. Pancreas: Visualized pancreas is normal in appearance. Right kidney: Right kidney is poorly visualized without large obvious abnormality. Inferior vena cava: Visualized IVC measures up to 3.6 cm in anterior-posterior diameter, which is within normal limits. Portal venous: Portal vein demonstrates pulsatile portal venous flow. US/US liver [id number] IMPRESSION: 1. Portal vein demonstrates pulsatile portal venous flow. 2. Questionable pleural effusion.
--- NOTE | 2024-06-14 14:32 | P.PN_ITS ---
Subjective 2 Subjective: 83 year old female with a past medical h istory of congestive heart failure, atrial fibrillation/sick sinus syndrome status post pacemaker placement, and chronic kidney disease presents with worsening lower extremity edema and shortness of breath. The patient has failed outpatient diuretic therapy. The patient is noted to have anasarca with lower extremity edema and blisters, likely secondary to congestive heart failure exacerbation. The patient is wheelchair-bound and not very active at baseline. Patients initial laboratory workup in the emergency room a showed a WBC of 5.3, hemoglobin at 10, hematocrit 33 and a platelet count of 144. Sodium 144, potassium 3.7, chloride 98, bicarb 30, BUN 23 and creatinine of 1.6. Prior to this she had a creatinine of 1.0 on June 01.Chest x-ray has showed a cardiomegaly with pulmonary edema and small bilateral pleural effusions. This was on the 07 of June. The patient was started on intravenous Bumex and oral metolazone for diuresis. A García catheter was placed for accurate urine output measurement. Renal US was done which did not show any evidence of hydronephrosis. Renal function remained at around 1.6. Bilateral venous dopplers were done which were also negative for DVT. She was noted to have improvement in bilateral lower extremity edema. Given worsening renal function bumex was stopped on the . Was restarted on gentle IV hydration. On she was noted to be hypotensive as well with systolic in low 80s. IVF rate was increased to 75 ml/hr. Her antihypertensive medication including cardizem and metoprolol was held. Nephrology was consulted. In additional patient was noted to have intermittent change in mental status as well. Mental status was noted on PCP outpatient visit in April. Patient has been at time difficult to arouse in am, however does become more alert as the day progresses. 06/13 Patients family was at bedside today. She was slightly more alert than yesterday. There was some concern of possible development of infection. She was requiring 1.5 L via nasal cannula. Was having some cough. 06/14 Patient was slightly more alert today but however still not alert enough to communicate or follow commands. Has remained on IV fluids. Was noted to have decreased urine output overnight. Medications: Reviewed: Yes Vitals/I&O/Wt Last Vital Signs Temp 97.7 F 06/14/24 11:57 Pulse 83 06/14/24 13:48 Resp 16 06/14/24 11:57 BP 112/71 06/14/24 11:57 Pulse Ox 90 06/14/24 11:57 O2 Del Method Nasal Cannula 06/14/24 11:57 O2 Flow Rate 1 06/14/24 08:13 06/13/24 06/14/24 06/14/24 22:59 06:59 14:59 Intake Total 448.75 / 788.75 132.5 / 921.25 50 / 50 Output Total 100 / 100 150 / 250 Balance 348.75 / 688.75 -17.5 / 671.25 50 / 50 Weight last 48 hrs Weight 133.538 kg Weight 130.589 kg Physical Exam 2 Narrative: General: Ill appearing , slightly more alert today. HEENT : Grossly unremarkable CVS: RRR Chest: at bases,non-labored Abd: Soft, NT,ND Ext: Mild lower extremity edema Urinary Catheter Management: García: Cath Placed During This Visit: yes Reason for Continuing Indwelling Catheter: Other Urinary Catheter Date of Insertion: 06/08/24 Urinary Catheter Time of Insertion: 01:19 Data 06/14/24 03:34 06/14/24 03:34 A&P Assessment and plan (1) BENJAMIN (acute kidney injury): (2) S/P placement of cardiac pacemaker: (3) Sick sinus syndrome: (4) Aortic valve stenosis: Qualifiers: Cardiac valve disease etiology: nonrheumatic Qualified Code(s): I35.0 - Nonrheumatic aortic (valve) stenosis (5) CHF (congestive heart failure): Qualifiers: Heart failure chronicity: acute Heart failure type: combined systolic and diastolic Qualified Code(s): I50.41 - Acute combined systolic (congestive) and diastolic (congestive) heart failure (6) Varicose veins of bilateral lower extremities with pain: (7) Peripheral vascular disease: (8) Claudication: (9) Colon cancer: Qualifiers: Colon location: unspecified part of colon Qualified Code(s): C18.9 - Malignant neoplasm of colon, unspecified (10) Iron deficiency anemia: Qualifiers: Iron deficiency anemia type: other iron deficiency Qualified Code(s): D 50.8 - Other iron deficiency anemias (11) Peripheral edema: Plan Acute Encephalopathy - Likely on chronic, patient was noted to have underlying cognitive disorder however in the past few days this appears to have worsened. Awakes only to stimuli. - Possibly 2/2 metabolic encephalopathy in setting of worsening renal failure, vs infectious. Plan: - Patients change in mental status is unclear. This had gradually progressed since admission. Discussed with family who stated this was a gross change from her baseline. Workup included a CT head which did not show any acute intracranial abnormality. Possible infectious for which she was started on IV antibiotics. suspect this could be likely due to toxic metabolic encephalopathy. - Will check EEG Acute Kidney Injury on Chronic Kidney Disease - The patient has a history of chronic kidney disease and now presents with acute kidney injury, likely secondary to volume overload and decreased renal perfusion. - Creatinine was noted to be 1.6 on admission, has now increased to 1.9. Monitor urine output. García was placed on admission - Renal US noted - Increased from 1.6-> 1.9-> 2.0 - 2.2 -> 2.2 - Also noted to be hypotensive episodes - Free Light Chains, K/L ratio high, no M-spike Plan: - Nephrology has been consulted. Has been continued on IV fluids. Urine output unclear if this was documented accurately however as decreased. - Continue plan as documented in Nephrology note. Possible Left Lower Lobe Pneumonia? - Noted to have cough, Requiring supplemental oxygen. - Was not able to swallow. Concern for some aspiration. - Chest x-ray was done which showed cardiac enlargement, mild tortuosity and ectasia of the thoracic aorta atelectasis in the right lung and obscure left hemidiaphragm contour due to lung consolidation and pleural effusion. Plan: - Patient has been requiring supplemental oxygen however does not appear to be in any respiratory distress. Was empirically started on Zosyn 3.375 g IV q.8 hours. Procalcitonin was negative. Will consider deescalating antibiotics based on further clinical course. Acute Diastolic Congestive Heart Failure Exacerbation - The patient has a history of congestive heart failure and has failed outpatient diuretic therapy. Presenting with worsening lower extremity edema and shortness of breath. Plan: - Continue to hold diuretics Chronic Lymphedema - The patient has significant fluid overload with Anasarca and lower extremity edema complicated by blister formation, likely secondary to congestive heart failure. - Likely due to Venous stasis due to immobility and heart failure. Plan: - This has improved, lymphedema wraps in place. Atrial Fibrillation/Sick Sinus Syndrome Status Post Pacemaker - The patient has a history of atrial fibrillation, sick sinus syndrome, and pacemaker placement. Currently off anticoagulation due to prior gastrointestinal bleeding. Plan: 1. Her cardizem, metoprolol and propafenone have been on hold due to above 2. Continue to monitor on telemetry DVT prophylaxis: Heparin 5000 units Q12 PDMP PDMP Reviewed: Not Reviewed Attestations 2 Medical Necessity Statement*: Patient requires hospitalization for diastolic CHF exacerbation failure with outpatient diuretic therapy requiring inpatient diuretic therapy Coding Level of Care Code Acute Code for [facility] Fwd Diagnoses BENJAMIN (acute kidney injury) N17.9 S/P placement of cardiac pacemaker Z95.0 Sick sinus syndrome I49.5 Nonrheumatic aortic valve stenosis I35.0 Cardiac valve disease etiology: nonrheumatic Diastolic congestive heart failure, unspecified HF chronicity I50.41 Heart failure chronicity: acute Heart failure type: combined systolic and diastolic Varicose veins of bilateral lower extremities with pain I83.813 Peripheral vascular disease I73.9 Claudication I73.9 Malignant neoplasm of colon, unspecified part of colon C18.9 Colon location: unspecified part of colon Other iron deficiency anemia D50.8 Iron deficiency anemia type: other iron deficiency Peripheral edema R60.0
[2024-06-14 15:02] LABS: Ammonia 140 umol/L (11-51)
[2024-06-14] MEDS: albumin 25 G/100 ML BAG 60 G IV (15:12)
[2024-06-14 17:44] LABS: Glucose Point of Care 72 mg/dL (70-110)
[2024-06-14] MEDS: propafenone 150 mg Tablet PO (20:07)
[2024-06-14 21:13] LABS: Glucose Point of Care 67 mg/dL (70-110)
[2024-06-14] MEDS: dextrose 10% 125 ML 750 ML IV (21:36)
[2024-06-14] MEDS: lactulose oral liq 20 gm/30 mL UDC PO (21:42)
[2024-06-14 22:21] LABS: Glucose Point of Care 85 mg/dL (70-110)
[2024-06-14 23:00] LABS: Glucose Point of Care 82 mg/dL (70-110)
[2024-06-15] VITALS (10 sets, daily range): BP systolic 102–117; BP diastolic 61–73; PULSE 60–83; RESP 14–17; TEMP 36.3–36.8; O2SAT 93–98
[2024-06-15 02:15] LABS: Glucose Point of Care 85 mg/dL (70-110)
[2024-06-15] MEDS: albumin 25 G/100 ML BAG 60 G IV ×2 (02:23→14:45)
[2024-06-15 03:46] LABS: Basophils % 0.3 %; Eosinophils # 0.2 10^3/uL (0.0-0.8); Eosinophils % 2.7 %; Hematocrit 31.6 % (36-47); Lymphocytes # 1.6 10^3/uL (0.8-4.8); Lymphocytes % 27.3 %; Mean Corpuscular HGB Conc 30.4 g/dL (30-55); Monocytes # 0.8 10^3/uL (0.2-0.9); Monocytes % 13.1 %; Neutrophils # 3.27 10^3/uL (1.8-7.7); Neutrophils % 56.3 %; Nucleated Red Blood Cells % 0.7 %; Platelet Count 134 10^3/cmm (157-399); Red Blood Count 3.55 10^6/uL (3.85-5.65); Red Cell Distribution Width 19.2 % (12.1-15.1); White Blood Count 5.82 10^3/uL (3.29-11.43)
[2024-06-15 03:58] LABS: Alanine Aminotransferase 56 U/L (0-33); Albumin Level 3.5 g/dL (3.5-5.2); Alkaline Phosphatase 135 U/L (35-105); Anion Gap 18.7 (5-19); Aspartate Amino Transferase 74 U/L (0-32); Blood Urea Nitrogen 48 mg/dL (8-23); Calcium 9.3 mg/dL (8.5-10.5); Carbon Dioxide 29 mmol/L (22-29); Chloride 98 mmol/L (98-107); Creatinine Clr Calc Pharmacy 20.8465; Globulin 2.3 g/dL (1.3-4.6); Glucose 81 mg/dL (65-115); Osmolality Calculated 306 mOsm/kg (285-295); Potassium 3.7 mmol/L (3.5-5.1); Sodium 142 mmol/L (136-145); Total Bilirubin 1.9 mg/dL (0.15-1.2); Total Protein 5.8 g/dL (6.6-8.7)
[2024-06-15] MEDS: piperacillin-tazobactam 3.375 GM in sodium chloride 0.9% (plus) 50 ML IV ×3 (03:59→20:05)
[2024-06-15 04:02] LABS: Phosphorus 4.8 mg/dL (2.5-4.5)
[2024-06-15] MEDS: lactated ringers 1,000 ML 75 ML IV (04:02)
[2024-06-15] MEDS: heparin 5,000 unit/mL INJ 1 mL 5000 UNIT SUBCUT ×2 (05:01→17:10)
[2024-06-15 06:31] LABS: Glucose Point of Care 82 mg/dL (70-110)
[2024-06-15] MEDS: sennosides-docusate Tablet 1 TAB PO (09:03)
[2024-06-15] MEDS: propafenone 150 mg Tablet PO ×3 (09:03→20:04)
[2024-06-15] MEDS: FUROsemide 40 mg Tablet PO (09:03)
[2024-06-15] MEDS: pantoprazole DR 40 mg Tablet PO (09:03)
--- NOTE | 2024-06-15 10:35 | PM.PN ---
Subjective Subjective: not interactive. responds just to touch, not voice. not following commands or talking Medications: Reviewed: Yes Medication Review Details: Current Medications Acetaminophen (Acetaminophen 500 Mg Tablet) 500 mg PO Q4H PRN PRN Reason: fever Last Admin: 06/14/24 05:21 Dose: 500 mg Albuterol/Ipratropium (Ipratropium-Albuterol 3 Ml Neb) 3 ml INHALATION Q6H PRN PRN Reason: SHORTNESS OF BREATH Diltiazem HCl (Diltiazem 60 Mg Tablet) 60 mg PO TID [facility] Last Admin: 06/12/24 09:08 Dose: 60 mg Furosemide (Furosemide 40 Mg Tablet) 40 mg PO DAILY@0800 [facility] Last Admin: 06/15/24 09:03 Dose: 40 mg Glucagon (Glucagon 1 Mg/Ml Kit 1 Ml) 1 mg IM ONCE PRN; Protocol PRN Reason: Adult Acute Hypoglycemia Nursing Prot. Heparin Sodium (Porcine) (Heparin 5,000 Unit/Ml Inj 1 Ml) 5,000 unit SUBCUT Q12H [facility] Last Admin: 06/15/24 05:01 Dose: 5,000 unit Lactated Ringer's (Lactated Ringers) 1,000 mls @ 75 mls/hr IV .[id number] [facility] Last Admin: 06/15/24 04:02 Dose: 75 mls/hr Piperacillin Sod/Tazobactam (Sod 3.375 gm/ Sodium Chloride) 50 mls @ 12.5 mls/hr IV Q8H [facility] Last Infusion: 06/15/24 09:29 Dose: Infused Albumin Human (Albumin) 25 g in 100 mls @ 60 mls/hr IV Q12H [facility] Last Infusion: 06/15/24 03:59 Dose: Infused Dextrose (D5w) 500 mls @ 0 mls/hr IV ONCE PRN; Protocol PRN Reason: Adult Acute Hypoglycemia Prot Dextrose (D10w) 125 mls @ 750 mls/hr IV PRN PRN; Protocol PRN Reason: Adult Acute Hypoglycemia Nursing Protocol Last Infusion: 06/14/24 21:53 Dose: Infused Dextrose (D10w) 250 mls @ 1,000 mls/hr IV PRN PRN; Protocol PRN Reason: Adult Acute Hypoglycemia Nursing Protocol Metoprolol Tartrate (Metoprolol Tartrate 25 Mg Tablet) 25 mg PO BID@0900,2100 [facility] Last Admin: 06/12/24 09:08 Dose: 25 mg Ondansetron HCl (Ondansetron 2 Mg/Ml Sdv 2 Ml) 4 mg IVP Q6H PRN PRN Reason: NAUSEA AND VOMITING Pantoprazole Sodium (Pantoprazole Dr 40 Mg Tablet) 40 mg PO BID [facility] Last Admin: 06/15/24 09:03 Dose: 40 mg Propafenone HCl (Propafenone 150 Mg Tablet) 150 mg PO TID [facility] Last Admin: 06/15/24 09:03 Dose: 150 mg Senna/Docusate Sodium (Sennosides-Docusate Tablet) 1 tab PO DAILY [facility] Last Admin: 06/15/24 09:03 Dose: 1 tab Vitals/I&O/Wt Last Vital Signs Temp 98.3 F 06/15/24 07:45 Pulse 78 06/15/24 08:22 Resp 16 06/15/24 08:22 BP 108/71 06/15/24 07:45 Pulse Ox 93 06/15/24 08:22 O2 Del Method Nasal Cannula 06/15/24 08:22 O2 Flow Rate 1 06/15/24 08:22 06/14/24 06/15/24 06/15/24 22:59 06:59 14:59 Intake Total 301.25 / 1295.00 1043.75 / 2338.75 50 / 50 Output Total 100 / 100 150 / 250 Balance 201.25 / 1195.00 893.75 / 2088.75 50 / 50 Weight last 48 hrs Weight 135.261 kg Weight 133.538 kg Physical Exam Narrative: elderly lady in bed, no resp distres VS noted heent- nc/at, eomi, anicteroc neck supple lungs clear b/l heart-regular, paced rhythm, +s1, s2 abd soft, + bs ext + b/l lymphedema neuro- responds minimally to pain Urinary Catheter Management: García: Cath Placed During This Visit: yes Reason for Continuing Indwelling Catheter: Accurate Measurement of Urinary Output in Critically Ill Patients Urinary Catheter Date of Insertion: 06/08/24 Urinary Catheter Time of Insertion: 01:19 Data 06/15/24 03:20 06/15/24 03:20 Micro: Microbiology 06/12/24 12:59 Urine Culture - Final Urine,Clean Catch Enterococcus faecalis A&P Assessment and plan (1) BENJAMIN (acute kidney injury): 83 year old female with history of colon cancer status post hemicolectomy, sick sinus syndrome and a fib status post pacemaker, not on anticoagulation secondary to GI bleed, diastolic CHF- HFpEF, severly elevated filling pressures, moderate pulm htn, moderate MR. Pt presented on 06/07/24 with leg swelling and blistering, inability to walk and generalized weakness. 3 weeks prior to admission she was started on Bumex. Patient was admitted and started on diuretics- Her baseline cr is 0.8- 1 mg/dl. by may on admission her cr chuck to 1.6 mg/dl- 1. BENJAMIN- Creatinine is up to 2.6 mg/dl -stop diuretics -give ivf. low ur na - Urine analysis showed 1+ protein and 3+ blood +RBCs . -await nima, anca anti gbm normal complements Will check urine protein to creatinine ratio, urine sodium is 12 indicating intravascular volume depletion likely from diuresis CPK normal - Has elevated Free light chains with increased K/L ratio , No M spike -Hematology eval as out pt -she has lymphedema- diuretics on hold - resumed today , added IV lbumin -no rash, fever, or eosinophilia- less likely AIN -hypotension could have cause ATN. she might be prerenal from diuretics or from CRS 2. anemia and BENJAMIN - Has elevated Free light chains, needs Hematology eval ferritin 56 % sat 4.8- is iron deficient 3. HFpEF- grade III/ IV diastolic dysfunction, RVSP elevated at 38, and moderate MR -Amyloidosis could cause LVH with restrictive pattern and BENJAMIN- review with cardiology -no brionna-i, arb, aldactone, SGLT2-i w/ BENJAMIN 4. ammonia 140 - liver eval as per medical team. would use rifaximin and inc lactulsoe until ammonia is normal 5. bp on low side seen and examined w/ RN using A/V equipment Plan see above PDMP PDMP Reviewed: Not Reviewed Attestations Medical Necessity Statement*: benjamin, ams, inc ammonia Time Spent in Patient Care: Greater than 35 minutes (>than 50% of time spent in counselling and/or direct pt care on unit). Coding Level of Care Code Acute Code for [facility] Fwd Diagnoses BENJAMIN (acute kidney injury) N17.9
[2024-06-15] MEDS: lactulose oral liq 20 gm/30 mL UDC 200 GM PR (11:10)
[2024-06-15] MEDS: lactated ringers 1,000 ML 100 ML IV ×2 (11:23→20:05)
[2024-06-15 11:27] LABS: Hepatitis B Core AB, Total Non-Reactive (Nonreactive); Hepatitis B Surface AB < 3.5 (11.5-1000); Hepatitis B Surface Antigen Non-Reactive (Nonreactive)
[2024-06-15 11:46] LABS: Glucose Point of Care 72 mg/dL (70-110)
[2024-06-15 11:50] LABS: Hepatitis C Virus Antibody Non-Reactive (Nonreactive)
--- NOTE | 2024-06-15 12:33 | XRR_ITS ---
PROCEDURE INFORMATION: Exam: XR Chest Exam date and time: 06/15/2024 1:39 PM Age: 83 years old Clinical indication: Device placement; Prior surgery; Surgery date: 6+ months; Surgery type: Pacemaker; Picc confirmation TECHNIQUE: Imaging protocol: Radiologic exam of the chest. Views: 1 view. COMPARISON: CR XR chest 1V [id number] 06/12/2024 11:25 AM FINDINGS: Tubes, catheters and devices: Dual-chamber pacemaker. Right upper extremity PICC line with its tip overlying the cavoatrial junction. Lungs: Bilateral indistinct peribronchovascular opacities. Pleural spaces: Blunting of the right costophrenic angle and small right pericardial effusion. Heart/Mediastinum: Enlarged cardiac silhouette Bones/joints: Unremarkable. XR/XR chest 1V portable [id number] IMPRESSION: 1. Mild pulmonary edema, and atelectasis. 2. Small right pleural and perifissural effusion. 3. Enlarged cardiac silhouette, unchanged.
--- NOTE | 2024-06-15 14:46 | PICC.NOTE ---
Double lumen PICC placed to right basilic vein. Referred to vascular access nurse for PICC placement due to no access and need for IV maintenance fluids and antibiotics. Risks and benefits discussed and informed consent obtained by bedside staff from pt daughter via phone prior to this nurse's arrival. Pt noted to have infiltrated IV's to both right and left upper arms where US guided IV's were placed. Pt has pacemaker on the left and upon US assessment, no viable veins noted to left arm. Right arm assessed with right basilic vein measuring 3.4 mm, straight, and apparent best choice for placement. Infiltrated IV noted in the right cephalic vein, away from target vessel. Using sterile technique and MST, right basilic vein accessed x 1 stick. Mid-arm circumference measured 10 cm from right AC 51 cm. Trimmed cath 48 cm with 1 cm external length noted. CXR shows tip in cavoatrial junction in good position for use per radiologist. Line secured with stat-lock. Insertion site covered with Biopatch and TSM. Clear fluid noted to be leaking from infiltrated IV to right upper arm. Report given to bedside nurse, CHAPO Finney.
--- NOTE | 2024-06-15 16:31 | P.PN_ITS ---
Subjective 2 Subjective: 83 year old female with a past medical h istory of congestive heart failure, atrial fibrillation/sick sinus syndrome status post pacemaker placement, and chronic kidney disease presents with worsening lower extremity edema and shortness of breath. The patient has failed outpatient diuretic therapy. The patient is noted to have anasarca with lower extremity edema and blisters, likely secondary to congestive heart failure exacerbation. The patient is wheelchair-bound and not very active at baseline. Patients initial laboratory workup in the emergency room a showed a WBC of 5.3, hemoglobin at 10, hematocrit 33 and a platelet count of 144. Sodium 144, potassium 3.7, chloride 98, bicarb 30, BUN 23 and creatinine of 1.6. Prior to this she had a creatinine of 1.0 on June 01.Chest x-ray has showed a cardiomegaly with pulmonary edema and small bilateral pleural effusions. This was on the 07 of June. The patient was started on intravenous Bumex and oral metolazone for diuresis. A García catheter was placed for accurate urine output measurement. Renal US was done which did not show any evidence of hydronephrosis. Renal function remained at around 1.6. Bilateral venous dopplers were done which were also negative for DVT. She was noted to have improvement in bilateral lower extremity edema. Given worsening renal function bumex was stopped on the . Was restarted on gentle IV hydration. On she was noted to be hypotensive as well with systolic in low 80s. IVF rate was increased to 75 ml/hr. Her antihypertensive medication including cardizem and metoprolol was held. Nephrology was consulted. In additional patient was noted to have intermittent change in mental status as well. Mental status was noted on PCP outpatient visit in April. Patient has been at time difficult to arouse in am, however does become more alert as the day progresses. On 06/14 she was found to have high ammonia level. She was started on Lactulose. 06/13 Patients family was at bedside today. She was slightly more alert than yesterday. There was some concern of possible development of infection. She was requiring 1.5 L via nasal cannula. Was having some cough. 06/14 Patient was slightly more alert today but however still not alert enough to communicate or follow commands. Has remained on IV fluids. Was noted to have decreased urine output overnight. 06/15 Overnight patient was given lactulose. Today she was noted to be slightly more alert and did respond yes or no to some of my questions. No fever or chills overnight. No nausea vomiting. Medications: Reviewed: Yes Vitals/I&O/Wt Last Vital Signs Temp 97.9 F 06/15/24 12:00 Pulse 60 06/15/24 14:00 Resp 16 06/15/24 12:00 BP 113/68 06/15/24 12:00 Pulse Ox 94 06/15/24 12:00 O2 Del Method Nasal Cannula 06/15/24 12:00 O2 Flow Rate 1 06/15/24 08:22 06/15/24 06/15/24 06/15/24 06:59 14:59 22:59 Intake Total 1043.75 / 2338.75 50 / 50 Output Total 150 / 250 Balance 893.75 / 2088.75 50 / 50 Weight last 48 hrs Weight 135.261 kg Weight 133.538 kg Physical Exam 2 Narrative: General: Ill appearing , slightly more alert today. HEENT : Grossly unremarkable CVS: RRR Chest: at bases,non-labored Abd: Soft, NT,ND Ext: Mild lower extremity edema Urinary Catheter Management: García: Cath Placed During This Visit: yes Reason for Continuing Indwelling Catheter: Accurate Measurement of Urinary Output in Critically Ill Patients Urinary Catheter Date of Insertion: 06/08/24 Urinary Catheter Time of Insertion: 01:19 Data 06/15/24 03:20 06/15/24 03:20 Micro: Microbiology 06/12/24 12:59 Urine Culture - Final Urine,Clean Catch Enterococcus faecalis A&P Assessment and plan (1) BENJAMIN (acute kidney injury): (2) S/P placement of cardiac pacemaker: (3) Sick sinus syndrome: (4) Aortic valve stenosis: Qualifiers: Cardiac valve disease etiology: nonrheumatic Qualified Code(s): I35.0 - Nonrheumatic aortic (valve) stenosis (5) CHF (congestive heart failure): Qualifiers: Heart failure chronicity: acute Heart failure type: combined systolic and diastolic Qualified Code(s): I50.41 - Acute combined systolic (congestive) and diastolic (congestive) heart failure (6) Varicose veins of bilateral lower extremities with pain: (7) Peripheral vascular disease: (8) Claudication: (9) Colon cancer: Qualifiers: Colon location: unspecified part of colon Qualified Code(s): C18.9 - Malignant neoplasm of colon, unspecified (10) Iron deficiency anemia: Qualifiers: Iron deficiency anemia type: other iron deficiency Qualified Code(s): D 50.8 - Other iron deficiency anemias (11) Peripheral edema: Plan Hepatic Encephalopathy - Likely on chronic, patient was noted to have underlying cognitive disorder however in the past few days this appears to have worsened. Awakes only to stimuli. - Likely due to metabolic, possibly infectious and now contributing factor includes hyperammonemia. Plan: - Given Some improvement after lactulose will continue this for now. She is not able to tolerate oral intake. Lactulose retention enema was given. Will likely need to repeat this again. Given this will hold off EEG for now. Will consider consultation with Neurology in the morning. Acute Kidney Injury on Chronic Kidney Disease - The patient has a history of chronic kidney disease and now presents with acute kidney injury, likely secondary to volume overload and decreased renal perfusion. - Creatinine was noted to be 1.6 on admission, has now increased to 1.9. Monitor urine output. García was placed on admission - Renal US noted - Increased from 1.6-> 1.9-> 2.0 - 2.2 -> 2.2->2.6 - Also noted to be hypotensive episodes - Free Light Chains, K/L ratio high, no M-spike Plan: - Nephrology has been consulted. - Continue plan as documented in Nephrology note. Possible Left Lower Lobe Pneumonia? - Noted to have cough, Requiring supplemental oxygen. - Was not able to swallow. Concern for some aspiration. - Chest x-ray was done which showed cardiac enlargement, mild tortuosity and ectasia of the thoracic aorta atelectasis in the right lung and obscure left hemidiaphragm contour due to lung consolidation and pleural effusion. Plan: - Patient has been requiring supplemental oxygen however does not appear to be in any respiratory distress. Was empirically started on Zosyn 3.375 g IV q.8 hours. Will consider deescalating antibiotics based on further clinical course. Will continue for an additional 1-2 days. Acute Diastolic Congestive Heart Failure Exacerbation - The patient has a history of congestive heart failure and has failed outpatient diuretic therapy. Presenting with worsening lower extremity edema and shortness of breath. Plan: - Continue to hold diuretics - Monitor daily weight Chronic Lymphedema - The patient has significant fluid overload with Anasarca and lower extremity edema complicated by blister formation, likely secondary to congestive heart failure. - Likely due to Venous stasis due to immobility and heart failure. Plan: - This has improved, lymphedema wraps in place. Atrial Fibrillation/Sick Sinus Syndrome Status Post Pacemaker - The patient has a history of atrial fibrillation, sick sinus syndrome, and pacemaker placement. Currently off anticoagulation due to prior gastrointestinal bleeding. Plan: 1. Her cardizem, metoprolol and propafenone have been on hold due to above 2. Continue to monitor on telemetry DVT prophylaxis: Heparin 5000 units Q12 PDMP PDMP Reviewed: Not Reviewed Attestations 2 Medical Necessity Statement*: Patient requires hospitalization for diastolic CHF exacerbation failure with outpatient diuretic therapy requiring inpatient diuretic therapy Coding Level of Care Code Acute Code for Chg Fwd Diagnoses BENJAMIN (acute kidney injury) N17.9 S/P placement of cardiac pacemaker Z95.0 Sick sinus syndrome I49.5 Nonrheumatic aortic valve stenosis I35.0 Cardiac valve disease etiology: nonrheumatic Diastolic congestive heart failure, unspecified HF chronicity I50.41 Heart failure chronicity: acute Heart failure type: combined systolic and diastolic Varicose veins of bilateral lower extremities with pain I83.813 Peripheral vascular disease I73.9 Claudication I73.9 Malignant neoplasm of colon, unspecified part of colon C18.9 Colon location: unspecified part of colon Other iron deficiency anemia D50.8 Iron deficiency anemia type: other iron deficiency Peripheral edema R60.0
[2024-06-15] MEDS: pantoprazole 40 mg SDV IVP (17:10)
[2024-06-15 18:16] LABS: Glucose Point of Care 74 mg/dL (70-110)
[2024-06-15 20:48] LABS: Glucose Point of Care 67 mg/dL (70-110)
[2024-06-15] MEDS: dextrose 10% 125 ML 750 ML IV (21:25)
[2024-06-15 22:05] LABS: Glucose Point of Care 95 mg/dL (70-110)
[2024-06-16] VITALS (11 sets, daily range): BP systolic 85–130; BP diastolic 55–73; PULSE 59–73; RESP 14–21; TEMP 36.4–37; O2SAT 93–97
[2024-06-16 02:10] LABS: Basophils % 0.3 %; Eosinophils # 0.1 10^3/uL (0.0-0.8); Eosinophils % 2.2 %; Hematocrit 30.6 % (36-47); Lymphocytes # 1.3 10^3/uL (0.8-4.8); Lymphocytes % 20.8 %; Mean Corpuscular HGB Conc 30.1 g/dL (30-55); Mean Corpuscular Hemoglobin 27.2 pg (27-33); Mean Corpuscular Volume 90.5 fl (85-98); Mean Platelet Volume 9.3 fL (7.4-10.4); Monocytes # 0.7 10^3/uL (0.2-0.9); Monocytes % 11.2 %; Neutrophils % 65.2 %; Nucleated Red Blood Cells % 0.6 %; Platelet Count 101 10^3/cmm (157-399); Red Blood Count 3.38 10^6/uL (3.85-5.65); Red Cell Distribution Width 19.6 % (12.1-15.1); White Blood Count 6.44 10^3/uL (3.29-11.43)
[2024-06-16] MEDS: albumin 25 G/100 ML BAG 60 G IV ×2 (02:10→14:13)
[2024-06-16 02:27] LABS: Alanine Aminotransferase 61 U/L (0-33); Albumin Level 3.4 g/dL (3.5-5.2); Alkaline Phosphatase 118 U/L (35-105); Anion Gap 22.8 (5-19); Aspartate Amino Transferase 91 U/L (0-32); Blood Urea Nitrogen 47 mg/dL (8-23); Calcium 9.3 mg/dL (8.5-10.5); Carbon Dioxide 25 mmol/L (22-29); Chloride 95 mmol/L (98-107); Creatinine Clr Calc Pharmacy 21.0186; Globulin 2.1 g/dL (1.3-4.6); Glucose 75 mg/dL (65-115); Osmolality Calculated 299 mOsm/kg (285-295); Potassium 3.8 mmol/L (3.5-5.1); Sodium 139 mmol/L (136-145); Total Bilirubin 2.3 mg/dL (0.15-1.2); Total Protein 5.5 g/dL (6.6-8.7)
[2024-06-16 02:28] LABS: Ammonia 71 umol/L (11-51)
[2024-06-16] MEDS: pantoprazole 40 mg SDV IVP ×2 (04:35→17:06)
[2024-06-16] MEDS: piperacillin-tazobactam 3.375 GM in sodium chloride 0.9% (plus) 50 ML IV (04:35)
[2024-06-16] MEDS: heparin 5,000 unit/mL INJ 1 mL 5000 UNIT SUBCUT ×2 (05:16→17:06)
[2024-06-16] MEDS: lactated ringers 1,000 ML 100 ML IV (05:46)
[2024-06-16 06:47] LABS: Glucose Point of Care 65 mg/dL (70-110)
--- NOTE | 2024-06-16 07:20 | PICC.NOTE ---
24 hour dressing change completed to right upper arm PICC. Clear fluid noted to leak from upper arm from old infiltrated IV. PICC insertion site cleaned with CHG. Biopatch applied and secured with Sorbaview shield. Coban wrapped around site for compression and surgilast applied. Report given to bedside nurse, CHAPO Finney.
--- NOTE | 2024-06-16 07:55 | PM.PN ---
Subjective Subjective: more awake, but still lethargic. she has edema. not answering appropriately Medications: Reviewed: Yes Medication Review Details: Current Medications Acetaminophen (Acetaminophen 500 Mg Tablet) 500 mg PO Q4H PRN PRN Reason: fever Last Admin: 06/14/24 05:21 Dose: 500 mg Albuterol/Ipratropium (Ipratropium-Albuterol 3 Ml Neb) 3 ml INHALATION Q6H PRN PRN Reason: SHORTNESS OF BREATH Diltiazem HCl (Diltiazem 60 Mg Tablet) 60 mg PO TID [facility] Last Admin: 06/12/24 09:08 Dose: 60 mg Glucagon (Glucagon 1 Mg/Ml Kit 1 Ml) 1 mg IM ONCE PRN; Protocol PRN Reason: Adult Acute Hypoglycemia Nursing Prot. Heparin Sodium (Porcine) (Heparin 5,000 Unit/Ml Inj 1 Ml) 5,000 unit SUBCUT Q12H [facility] Last Admin: 06/16/24 05:16 Dose: 5,000 unit Piperacillin Sod/Tazobactam (Sod 3.375 gm/ Sodium Chloride) 50 mls @ 12.5 mls/hr IV Q8H [facility] Last Admin: 06/16/24 04:35 Dose: 12.5 mls/hr Albumin Human (Albumin) 25 g in 100 mls @ 60 mls/hr IV Q12H [facility] Last Infusion: 06/16/24 03:56 Dose: Infused Dextrose (D5w) 500 mls @ 0 mls/hr IV ONCE PRN; Protocol PRN Reason: Adult Acute Hypoglycemia Prot Dextrose (D10w) 250 mls @ 1,000 mls/hr IV PRN PRN; Protocol PRN Reason: Adult Acute Hypoglycemia Nursing Protocol Lactated Ringer's (Lactated Ringers) 1,000 mls @ 100 mls/hr IV .Q10H [facility] Last Admin: 06/16/24 05:46 Dose: 100 mls/hr Lactulose (Lactulose Oral Liq 20 Gm/30 Ml Udc) 20 gm PO TID [facility] Metoprolol Tartrate (Metoprolol Tartrate 25 Mg Tablet) 25 mg PO BID@0900,2100 [facility] Last Admin: 06/12/24 09:08 Dose: 25 mg Ondansetron HCl (Ondansetron 2 Mg/Ml Sdv 2 Ml) 4 mg IVP Q6H PRN PRN Reason: NAUSEA AND VOMITING Pantoprazole Sodium (Pantoprazole 40 Mg Sdv) 40 mg IVP Q12H [facility] Last Admin: 06/16/24 04:35 Dose: 40 mg Propafenone HCl (Propafenone 150 Mg Tablet) 150 mg PO TID [facility] Last Admin: 06/15/24 20:04 Dose: 150 mg Senna/Docusate Sodium (Sennosides-Docusate Tablet) 1 tab PO DAILY [facility] Last Admin: 06/15/24 09:03 Dose: 1 tab Vitals/I&O/Wt Last Vital Signs Temp 98.0 F 06/16/24 07:37 Pulse 60 06/16/24 07:37 Resp 18 06/16/24 07:37 BP 108/59 06/16/24 07:37 Pulse Ox 97 06/16/24 07:37 O2 Del Method Nasal Cannula 06/16/24 07:37 O2 Flow Rate 1 06/15/24 08:22 06/15/24 06/16/24 06/16/24 22:59 06:59 14:59 Intake Total 2145 / 2195 1118.333 / 3313.333 Output Total 100 / 100 50 / 150 Balance 2044 / 2094 1068.333 / 3163.333 Weight last 48 hrs Weight 134.263 kg Weight 135.261 kg Physical Exam Narrative: elderly lady in bed, no resp distres VS noted heent- nc/at, eomi, anicteroc neck supple lungs dull bases b/l heart-regular, paced rhythm, +s1, s2 abd soft, + bs ext + b/l lymphedema neuro- responds minimally to voice and to pain Urinary Catheter Management: García: Cath Placed During This Visit: yes Reason for Continuing Indwelling Catheter: Accurate Measurement of Urinary Output in Critically Ill Patients Urinary Catheter Date of Insertion: 06/08/24 Urinary Catheter Time of Insertion: 01:19 Data 06/16/24 02:03 06/16/24 02:03 A&P Assessment and plan (1) BENJAMIN (acute kidney injury): 83 year old female with history of colon cancer status post hemicolectomy, sick sinus syndrome and a fib status post pacemaker, not on anticoagulation secondary to GI bleed, diastolic CHF- HFpEF, severly elevated filling pressures, moderate pulm htn, moderate MR. Pt presented on 06/07/24 with leg swelling and blistering, inability to walk and generalized weakness. 3 weeks prior to admission she was started on Bumex. Patient was admitted and started on diuretics- Her baseline cr is 0.8- 1 mg/dl. by may on admission her cr chuck to 1.6 mg/dl- 1. BENJAMIN- Creatinine is up to 2.6 mg/dl -stop ivf and monitor. cr has hopefully peaked -low ur na - Urine analysis showed 1+ protein and 3+ blood +RBCs . -await nima, anca anti gbm normal complements Will check urine protein to creatinine ratio, urine sodium is 12 indicating intravascular volume depletion likely from diuresis CPK normal - Has elevated Free light chains with increased K/L ratio , No M spike -Hematology eval as out pt -she has lymphedema- -no rash, fever, or eosinophilia- less likely AIN -hypotension could have cause ATN. she might be prerenal from diuretics or from CRS -concern for HRS- however, albumin is 3.4. consider midodrine 2. anemia and BENJAMIN - Has elevated Free light chains, needs Hematology eval ferritin 56 % sat 4.8- is iron deficient 3. HFpEF- grade III/ IV diastolic dysfunction, RVSP elevated at 38, and moderate MR -Amyloidosis could cause LVH with restrictive pattern and BENJAMIN- review with cardiology -no brionna-i, arb, aldactone, SGLT2-i w/ BENJAMIN 4. ammonia 140 - improved to 7y1. liver eval as per medical team. would use rifaximin and inc lactulsoe until ammonia is normal 5. bp on low side can give midodrine seen and examined w/ RN using A/V equipment Plan see above PDMP PDMP Reviewed: Not Reviewed Attestations Medical Necessity Statement*: benjamin, ams, hyperammonemia Time Spent in Patient Care: 16 - 35 minutes (>than 50% of time spent in counselling and/or direct pt care on unit). Coding Level of Care Code Acute Code for [facility] Diagnoses BENJAMIN (acute kidney injury) N17.9
[2024-06-16 09:04] LABS: Ammonia 69 umol/L (11-51)
[2024-06-16] MEDS: lactulose oral liq 20 gm/30 mL UDC PO (09:27)
[2024-06-16] MEDS: propafenone 150 mg Tablet PO ×2 (09:27→15:10)
[2024-06-16] MEDS: sennosides-docusate Tablet 1 TAB PO (09:27)
[2024-06-16 11:05] LABS: Glucose Point of Care 74 mg/dL (70-110)
[2024-06-16] MEDS: nystatin powder 15 gm Btl 1 APPLIC TOPICAL ×2 (11:33→17:07)
--- NOTE | 2024-06-16 11:53 | P.PN_ITS ---
Subjective 2 Subjective: 83 year old female with a past medical h istory of congestive heart failure, atrial fibrillation/sick sinus syndrome status post pacemaker placement, and chronic kidney disease presents with worsening lower extremity edema and shortness of breath. The patient has failed outpatient diuretic therapy. The patient is noted to have anasarca with lower extremity edema and blisters, likely secondary to congestive heart failure exacerbation. The patient is wheelchair-bound and not very active at baseline. Patients initial laboratory workup in the emergency room a showed a WBC of 5.3, hemoglobin at 10, hematocrit 33 and a platelet count of 144. Sodium 144, potassium 3.7, chloride 98, bicarb 30, BUN 23 and creatinine of 1.6. Prior to this she had a creatinine of 1.0 on June 01.Chest x-ray has showed a cardiomegaly with pulmonary edema and small bilateral pleural effusions. This was on the 07 of June. The patient was started on intravenous Bumex and oral metolazone for diuresis. A García catheter was placed for accurate urine output measurement. Renal US was done which did not show any evidence of hydronephrosis. Renal function remained at around 1.6. Bilateral venous dopplers were done which were also negative for DVT. She was noted to have improvement in bilateral lower extremity edema. Given worsening renal function bumex was stopped on the . Was restarted on gentle IV hydration. On she was noted to be hypotensive as well with systolic in low 80s. IVF rate was increased to 75 ml/hr. Her antihypertensive medication including cardizem and metoprolol was held. Nephrology was consulted. In additional patient was noted to have intermittent change in mental status as well. Mental status was noted on PCP outpatient visit in April. Patient has been at time difficult to arouse in am, however does become more alert as the day progresses. On 06/14 she was found to have high ammonia level. She was started on Lactulose. 06/13 Patients family was at bedside today. She was slightly more alert than yesterday. There was some concern of possible development of infection. She was requiring 1.5 L via nasal cannula. Was having some cough. 06/14 Patient was slightly more alert today but however still not alert enough to communicate or follow commands. Has remained on IV fluids. Was noted to have decreased urine output overnight. 06/15 Overnight patient was given lactulose. Today she was noted to be slightly more alert and did respond yes or no to some of my questions. No fever or chills overnight. No nausea vomiting. 06/16 Patient still confused however mental status particularly level of alertness has significantly improved today. Was responding to questions, following some commands. No fever, chills, nausea or vomiting overnight. has been off diuretics. BP has been soft. Medications: Reviewed: Yes Vitals/I&O/Wt Last Vital Signs Temp 98.2 F 06/16/24 11:23 Pulse 63 06/16/24 11:23 Resp 16 06/16/24 11:23 BP 94/61 06/16/24 11:23 Pulse Ox 97 06/16/24 07:37 O2 Del Method Nasal Cannula 06/16/24 07:37 O2 Flow Rate 1 06/15/24 08:22 06/15/24 06/16/24 06/16/24 22:59 06:59 14:59 Intake Total 2145 / 2195 1118.333 / 3313.333 50 / 50 Output Total 100 / 100 50 / 150 Balance 2044 / 2094 1068.333 / 3163.333 50 / 50 Weight last 48 hrs Weight 134.263 kg Weight 135.261 kg Physical Exam 2 Narrative: General: Ill appearing, alert, awake today more responsive HEENT : Grossly unremarkable CVS: RRR Chest: at bases,non-labored on 1Lpm Abd: Soft, NT,ND Ext: lower extremity edema - lymphedema wraps in place. Urinary Catheter Management: García: Cath Placed During This Visit: yes Reason for Continuing Indwelling Catheter: Accurate Measurement of Urinary Output in Critically Ill Patients Urinary Catheter Date of Insertion: 06/08/24 Urinary Catheter Time of Insertion: 01:19 Data 06/16/24 02:03 06/16/24 02:03 A&P Assessment and plan (1) BENJAMIN (acute kidney injury): (2) S/P placement of cardiac pacemaker: (3) Sick sinus syndrome: (4) Aortic valve stenosis: Qualifiers: Cardiac valve disease etiology: nonrheumatic Qualified Code(s): I35.0 - Nonrheumatic aortic (valve) stenosis (5) CHF (congestive heart failure): Qualifiers: Heart failure chronicity: acute Heart failure type: combined systolic and diastolic Qualified Code(s): I50.41 - Acute combined systolic (congestive) and diastolic (congestive) heart failure (6) Varicose veins of bilateral lower extremities with pain: (7) Peripheral vascular disease: (8) Claudication: (9) Colon cancer: Qualifiers: Colon location: unspecified part of colon Qualified Code(s): C18.9 - Malignant neoplasm of colon, unspecified (10) Iron deficiency anemia: Qualifiers: Iron deficiency anemia type: other iron deficiency Qualified Code(s): D 50.8 - Other iron deficiency anemias (11) Peripheral edema: Plan Hepatic Encephalopathy - Improving - Likely on chronic, patient was noted to have underlying cognitive disorder however in the past few days this appears to have worsened. Awakes only to stimuli. - Likely due to metabolic, possibly infectious and now contributing factor includes hyperammonemia. - Ammonia Level 140s to 69 today. S/p Lactulose OR yesterday. Plan: - Lactulose 20 mg TID today if able to tolerate PO - Hold if > 2-3 BMs per day - No need to trend ammonia Acute Kidney Injury on Chronic Kidney Disease - The patient has a history of chronic kidney disease and now presents with acute kidney injury, likely secondary to volume overload and decreased renal perfusion. - Creatinine was noted to be 1.6 on admission, has now increased to 1.9. Monitor urine output. García was placed on admission - Renal US noted - Increased from 1.6-> 1.9-> 2.0 - 2.2 -> 2.2->2.6- > 2.6 again today - Also noted to be hypotensive episodes. - Free Light Chains, K/L ratio high, no M-spike Plan: - Fluid management per nephrology - + 4.7L balance since admission - third spacing - García in place - Added midodrine 5 mg PO TID - Continue to hold antihypertensive for now - BMP in am Enterococcus UTI - UA noted to be positive for Enterococcus Susceptible to ampicillin Plan: 1. Possible change to ampicillin vs Vancomycin 2. Discontinued zosyn today. Acute Diastolic Congestive Heart Failure Exacerbation - The patient has a history of congestive heart failure and has failed outpatient diuretic therapy. Presenting with worsening lower extremity edema and shortness of breath. Plan: - Continue to hold diuretics - Monitor daily weight Chronic Lymphedema - The patient has significant fluid overload with Anasarca and lower extremity edema complicated by blister formation, likely secondary to congestive heart failure. - Likely due to Venous stasis due to immobility and heart failure. Plan: - This has improved, lymphedema wraps in place. Atrial Fibrillation/Sick Sinus Syndrome Status Post Pacemaker - The patient has a history of atrial fibrillation, sick sinus syndrome, and pacemaker placement. Currently off anticoagulation due to prior gastrointestinal bleeding. Plan: 1. Her cardizem, metoprolol and propafenone have been on hold due to above 2. Continue to monitor on telemetry DVT prophylaxis: Heparin 5000 units Q12 PDMP PDMP Reviewed: Not Reviewed Attestations 2 Medical Necessity Statement*: Patient requires hospitalization for diastolic CHF exacerbation failure, IV Abx for enterococcus UTI, and hepatic encephaopathy Coding Level of Care Code Acute Code for [facility] Fwd Diagnoses BENJAMIN (acute kidney injury) N17.9 S/P placement of cardiac pacemaker Z95.0 Sick sinus syndrome I49.5 Nonrheumatic aortic valve stenosis I35.0 Cardiac valve disease etiology: nonrheumatic Diastolic congestive heart failure, unspecified HF chronicity I50.41 Heart failure chronicity: acute Heart failure type: combined systolic and diastolic Varicose veins of bilateral lower extremities with pain I83.813 Peripheral vascular disease I73.9 Claudication I73.9 Malignant neoplasm of colon, unspecified part of colon C18.9 Colon location: unspecified part of colon Other iron deficiency anemia D50.8 Iron deficiency anemia type: other iron deficiency Peripheral edema R60.0
--- NOTE | 2024-06-16 12:40 | PC.SOCIAL ---
IMM Update pg 2 of IMM Updated and reviewed w/ patient. Copy provided and copy dated, initialed and placed in chart.
[2024-06-16] MEDS: AMPICILLIN IV (13:34)
[2024-06-16] MEDS: SODIUM CHLORIDE 0.9% IV (13:34)
[2024-06-16] MEDS: midodrine 5 mg TABLET PO (15:10)
--- NOTE | 2024-06-16 16:25 | PC.NURSE ---
OT removed lymphedema wraps, on left dorsal foot 2 possible DTI vs dark bruising. Kathy OT will keep wraps off til tomorrow and have it reassessed.
--- NOTE | 2024-06-16 16:28 | PC.NURSE ---
right dorsal foot dti vs bruise, see first note.
[2024-06-16 16:33] LABS: Glucose Point of Care 68 mg/dL (70-110)
[2024-06-16 16:54] LABS: Anti-Nuclear Antibody Screen NEGATIVE (NEGATIVE)
[2024-06-16 20:42] LABS: Glucose Point of Care 66 mg/dL (70-110)
[2024-06-16] MEDS: glucagon 1 mg/mL KIT 1 mL IM (20:47)
[2024-06-16 21:11] LABS: ABG PH Result 7.29 (7.35-7.45); Arterial Blood Gas Hematocrit 30.6 % (37-47); Base Excess ABG 2.4 mmol/L (-2.0-2.0); Blood Gas Sample Type Arterial; HCO3 ABG 30.1 mmol/L (22-26)
[2024-06-16 21:13] LABS: ABG PCO2 63.3 mmHg (35-45); Blood Gas Operator Identificat ED; Blood Gas Sample Site Brachial, left; Oxygen Device NC; PO2 FiO2 Ratio Arterial Blood 307
[2024-06-16 21:20] LABS: Immunofixation Serum Normal pattern.
--- NOTE | 2024-06-16 21:49 | PC.NURSE ---
Pt transferred to ICU 10. Receiving RN at bedside during time of transfer.
[2024-06-16 22:50] LABS: Glucose Point of Care 61 mg/dL (70-110)
[2024-06-16] MEDS: dextrose 10% 1,000 ML 100 ML IV (23:20)
[2024-06-16 23:36] LABS: Glucose Point of Care 83 mg/dL (70-110)
--- NOTE | 2024-06-16 23:49 | W.PM.EVENTAC ---
Event Note Event Note: I was notified by the nurse that patient is very somnolent When nurse notified me about her status I requested ABG which showed hypercapnia she was transferred to ICU on AVAPS right away, blood glucose was checked which was around 65, she was given 1 dose of glucagon When I evaluated her, she was able to open eyes to painful stimuli but she is not able to follow commands at all Repeating ABG in an hour Start D10 drip after the bolus At this point patient has positive fluid balance, judicious use of fluids however at this point she is hypoglycemic without significant improvement of blood sugar over glucagon dose, hence we decided to use D10 gtt. Event Notes Attestations Time Spent in Patient Care: less than 15 minutes
[2024-06-17] VITALS (26 sets, daily range): BP systolic 70–125; BP diastolic 49–74; PULSE 60–67; RESP 12–26; O2SAT 87–99
[2024-06-17] MEDS: SODIUM CHLORIDE 0.9% IV ×2 (00:08→12:47)
[2024-06-17] MEDS: AMPICILLIN IV ×2 (00:08→12:47)
[2024-06-17] MEDS: bumetanide 0.25 mg/mL SDV 4 mL 1 MG IVP (00:09)
[2024-06-17 00:17] LABS: Blood Gas Operator Identificat ED; Blood Gas Sample Site Brachial, left; Blood Gas Sample Type Arterial; Blood Gas Tidal Volume 0.45; Ionized Calcium Level - ABG 1.2 mmol/L (1.1-1.4); Oxygen Device BIPAP; Oxygen Saturation ABG 95.4
[2024-06-17 00:18] LABS: ABG PCO2 58.7 mmHg (35-45); ABG PH Result 7.31 (7.35-7.45); Alveolar-Arterial Oxygen Gradi 6.8 mmHg (5-10); Base Excess ABG 2.3 mmol/L (-2.0-2.0); Carboxyhemoglobin 1.2 %THgb (0.4-20.1); HCO3 ABG 29.5 mmol/L (22-26); HGB O2 Sat 93.9 % (95-100); Methemoglobin 0.4 % (0.4-1.5); PO2 ABG 77.6 mmHg (80.0-100.0); PO2 FiO2 Ratio Arterial Blood 277; Potassium Level - ABG 3.3 mmol/L (3.5-5.0); Total Hemoglobin 10.4 g/dL (12-16)
[2024-06-17 01:49] LABS: Glucose Point of Care 126 mg/dL (70-110)
[2024-06-17] MEDS: albumin 25 G/100 ML BAG 60 G IV ×3 (02:20→18:09)
[2024-06-17 02:40] LABS: Glucose Point of Care 114 mg/dL (70-110)
--- NOTE | 2024-06-17 02:50 | PC.NURSE ---
Pt transfered from [facility] to this unit at 2134. Pt lethargic, unable to answer questions, unable to follow directions, on 2 liters oxygen per NC. Skin assessment revealed large closed unstageable pressure injury to buttocks and multiple red areas to skin folds. Blood pressures soft upon transfer, occasional maps below 65, reported to Dr. Arizmendi and order received for Levophed to start if needed. Blood sugar checked and was 61. Dr. Arizmendi at bedside and verbal order received to give 50 ml bolus of D10 and continue at 100 ml/hr until blood sugars between 80-120 and titrate down to maintain target sugars until able to discontinue.
[2024-06-17 04:07] LABS: Basophils % 0.1 %; Eosinophils # 0.2 10^3/uL (0.0-0.8); Eosinophils % 2.8 %; Hematocrit 31.7 % (36-47); Lymphocytes # 1.1 10^3/uL (0.8-4.8); Lymphocytes % 16.6 %; Mean Corpuscular Hemoglobin 26.8 pg (27-33); Mean Corpuscular Volume 89.3 fl (85-98); Mean Platelet Volume 10.7 fL (7.4-10.4); Monocytes # 0.6 10^3/uL (0.2-0.9); Monocytes % 8.7 %; Neutrophils # 4.79 10^3/uL (1.8-7.7); Neutrophils % 71.5 %; Nucleated Red Blood Cells # 0.1 /100WBC; Nucleated Red Blood Cells % 0.9 %; Platelet Count 94 10^3/cmm (157-399); Red Blood Count 3.55 10^6/uL (3.85-5.65); Red Cell Distribution Width 19.6 % (12.1-15.1)
[2024-06-17 04:11] LABS: Glucose Point of Care 122 mg/dL (70-110)
[2024-06-17] MEDS: pantoprazole 40 mg SDV IVP ×2 (05:19→16:58)
[2024-06-17] MEDS: heparin 5,000 unit/mL INJ 1 mL 5000 UNIT SUBCUT ×2 (05:19→16:58)
[2024-06-17 05:39] LABS: Glucose Point of Care 102 mg/dL (70-110)
[2024-06-17 07:27] LABS: Alanine Aminotransferase 118 U/L (0-33); Albumin Level 3.9 g/dL (3.5-5.2); Alkaline Phosphatase 103 U/L (35-105); Anion Gap 21.4 (5-19); Aspartate Amino Transferase 218 U/L (0-32); Blood Urea Nitrogen 56 mg/dL (8-23); Calcium 9.7 mg/dL (8.5-10.5); Carbon Dioxide 25 mmol/L (22-29); Chloride 95 mmol/L (98-107); Creatinine Clr Calc Pharmacy 16.7758; Globulin 1.9 g/dL (1.3-4.6); Glucose 118 mg/dL (65-115); Magnesium 1.9 mg/dL (1.7-2.3); Osmolality Calculated 303 mOsm/kg (285-295); Phosphorus 4.7 mg/dL (2.5-4.5); Potassium 3.4 mmol/L (3.5-5.1); Sodium 138 mmol/L (136-145); Total Bilirubin 2.7 mg/dL (0.15-1.2); Total Protein 5.8 g/dL (6.6-8.7)
[2024-06-17 07:29] LABS: Ammonia 53 umol/L (11-51)
--- NOTE | 2024-06-17 08:30 | P.PN_ITS ---
Subjective 2 Subjective: patient was transferred to ICU yesterday. she required bipap and glucose. now responds a little Medications: Reviewed: Yes Medication Review Details: Current Medications Acetaminophen (Acetaminophen 500 Mg Tablet) 500 mg PO Q4H PRN PRN Reason: fever Last Admin: 06/14/24 05:21 Dose: 500 mg Albuterol/Ipratropium (Ipratropium-Albuterol 3 Ml Neb) 3 ml INHALATION Q6H PRN PRN Reason: SHORTNESS OF BREATH Denture Adhesive (Efferdent Effervescent) 1 each DENTAL PRN PRN PRN Reason: Dentures Diltiazem HCl (Diltiazem 60 Mg Tablet) 60 mg PO TID [facility] Last Admin: 06/12/24 09:08 Dose: 60 mg Heparin Sodium (Porcine) (Heparin 5,000 Unit/Ml Inj 1 Ml) 5,000 unit SUBCUT Q12H [facility] Last Admin: 06/17/24 05:19 Dose: 5,000 unit Albumin Human (Albumin) 25 g in 100 mls @ 60 mls/hr IV Q12H [facility] Last Infusion: 06/17/24 05:01 Dose: Infused Dextrose (D5w) 500 mls @ 0 mls/hr IV ONCE PRN; Protocol PRN Reason: Adult Acute Hypoglycemia Prot Dextrose (D10w) 250 mls @ 1,000 mls/hr IV PRN PRN; Protocol PRN Reason: Adult Acute Hypoglycemia Nursing Protocol Ampicillin Sodium 500 mg/ (Sodium Chloride) 50 mls @ 100 mls/hr IV Q12H [facility] Last Infusion: 06/17/24 02:22 Dose: Infused Dextrose (D10w) 1,000 mls @ 100 mls/hr IV .Q10H [facility] Last Infusion: 06/17/24 05:23 Dose: 50 mls/hr Lactulose (Lactulose Oral Liq 20 Gm/30 Ml Udc) 20 gm PO TID [facility] Last Admin: 06/16/24 20:06 Dose: Not Given Metoprolol Tartrate (Metoprolol Tartrate 25 Mg Tablet) 25 mg PO BID@0900,2100 [facility] Last Admin: 06/12/24 09:08 Dose: 25 mg Midodrine (Midodrine 5 Mg Tablet) 5 mg PO TID [facility] Last Admin: 06/17/24 00:06 Dose: Not Given Nystatin (Nystatin Powder 15 Gm Btl) 1 applic TOPICAL BID [facility] Last Admin: 06/16/24 17:07 Dose: 1 applic Ondansetron HCl (Ondansetron 2 Mg/Ml Sdv 2 Ml) 4 mg IVP Q6H PRN PRN Reason: NAUSEA AND VOMITING Pantoprazole Sodium (Pantoprazole 40 Mg Sdv) 40 mg IVP Q12H [facility] Last Admin: 06/17/24 05:19 Dose: 40 mg Propafenone HCl (Propafenone 150 Mg Tablet) 150 mg PO TID [facility] Last Admin: 06/17/24 00:06 Dose: Not Given Senna/Docusate Sodium (Sennosides-Docusate Tablet) 1 tab PO DAILY [facility] Last Admin: 06/16/24 09:27 Dose: 1 tab Vitals/I&O/Wt Last Vital Signs Temp 98.6 F 06/16/24 19:57 Pulse 60 06/17/24 06:37 Resp 21 H 06/17/24 06:37 BP 107/54 06/17/24 06:37 Pulse Ox 97 06/17/24 06:37 O2 Del Method Room Air 06/16/24 19:57 O2 Flow Rate 2 06/16/24 13:46 FiO2 28 06/17/24 03:46 06/16/24 06/17/24 06/17/24 22:59 06:59 14:59 Intake Total 100 / 200 671.333 / 871.333 Output Total 100 / 100 10 / 110 Balance 0 / 100 661.333 / 761.333 Weight last 48 hrs Weight 131.542 kg Weight 134.263 kg Physical Exam 2 Narrative: elderly lady in bed, using bipap- examined this morning VS noted heent- nc/at, eomi, anicteroc neck supple lungs dull bases b/l heart-regular, paced rhythm, +s1, s2 abd soft, + bs ext + b/l lymphedema neuro- responds to voice and to pain, still lethargic Urinary Catheter Management: García: Cath Placed During This Visit: yes Reason for Continuing Indwelling Catheter: Accurate Measurement of Urinary Output in Critically Ill Patients Urinary Catheter Date of Insertion: 06/08/24 Urinary Catheter Time of Insertion: 01:19 Data 06/17/24 03:45 06/17/24 06:40 A&P Assessment and plan (1) BENJAMIN (acute kidney injury): 83 year old female with history of colon cancer status post hemicolectomy, sick sinus syndrome and a fib status post pacemaker, not on anticoagulation secondary to GI bleed, diastolic CHF- HFpEF, severly elevated filling pressures, moderate pulm htn, moderate MR. Pt presented on 06/07/24 with leg swelling and blistering, inability to walk and generalized weakness. 3 weeks prior to admission she was started on Bumex. Patient was admitted and started on diuretics- Her baseline cr is 0.8- 1 mg/dl. by may on admission her cr chuck to 1.6 mg/dl- 1. BENJAMIN- Creatinine is up to 3.2 mg/dl -if renal fxn continues tro decline, she may need a renal biospy- though i am concerned for ATN - Urine analysis showed 1+ protein and 3+ blood +RBCs . -await nima, anca anti gbm normal complements Will check urine protein to creatinine ratio, urine sodium is 12 indicating intravascular volume depletion likely from diuresis CPK normal - Has elevated Free light chains with increased K/L ratio , No M spike - Hematology eval as out pt -she has lymphedema- -no rash, fever, or eosinophilia- less likely AIN -hypotension could have cause ATN. she might be prerenal from diuretics or from CRS -concern for HRS- however, albumin is 3.4. consider midodrine 2. anemia and BENJAMIN - Has elevated Free light chains, needs Hematology eval ferritin 56 % sat 4.8- is iron deficient 3. HFpEF- grade III/ IV diastolic dysfunction, RVSP elevated at 38, and moderate MR -Amyloidosis could cause LVH with restrictive pattern and BENJAMIN- review with cardiology -no brionna-i, arb, aldactone, SGLT2-i w/ BENJAMIN 4. ammonia 140 - improved with medical therapy - liver eval as per medical team. -continue therapy until ammonia normalizes 5. bp on low side can give midodrine seen and examined w/ RN using A/V equipment 6. hypercapneic resp acidosis Plan see above PDMP PDMP Reviewed: Not Reviewed Attestations 2 Medical Necessity Statement*: ams, hypercapneic resp acidosis, benjamin Time Spent in Patient Care: 16 - 35 minutes (>than 50% of time sp ent in counselling and/or direct pt care on unit) . Coding Level of Care Code Acute Code for Chg Fwd Diagnoses BENJAMIN (acute kidney injury) N17.9
[2024-06-17 08:47] LABS: Glucose Point of Care 119 mg/dL (70-110)
[2024-06-17] MEDS: lactulose oral liq 20 gm/30 mL UDC PO ×3 (08:55→16:58)
[2024-06-17] MEDS: sennosides-docusate Tablet 1 TAB PO (08:55)
[2024-06-17] MEDS: midodrine 5 mg TABLET PO (08:55)
[2024-06-17] MEDS: nystatin powder 15 gm Btl 1 APPLIC TOPICAL ×2 (08:55→16:59)
[2024-06-17] MEDS: propafenone 150 mg Tablet PO ×3 (08:55→21:32)
[2024-06-17] MEDS: lactated ringers 1,000 ML 125 ML IV (08:56)
--- NOTE | 2024-06-17 09:20 | PICC.NOTE ---
PICC dressing to right upper arm noted to be saturated with clear fluid from old infiltrated IV. Dressing changed using sterile technique. Biopatch applied and secured with Sorbaview shield. 4x4s applied to leaking area of right upper arm and wrapped with coban for compression.
--- NOTE | 2024-06-17 13:51 | XR_ITS ---
WS: [id number] PORTABLE CHEST HISTORY: ng tube placement COMPARISON: 06/15/2014 Nasogastric tube in good position with tip well below the GE junction. RIGHT PICC line is identified. The tip of the PICC line is obscured by overlying external wires. LEFT subclavian defibrillator. Lung volumes are decreased. There is diffuse moderate pulmonary edema and hazy opacifications. Progressed since 06/15/2024. Small bilateral pleural effusions. Cardiac size: Moderate cardiomegaly. Mediastinum/Aorta: Mild mediastinal widening on the basis of positioning and fluid status. Osteopenia. XR/XR chest 1V portable [id number] IMPRESSION: 1. Nasogastric tube in good position with tip well below the GE junction. 2. Moderate pulmonary edema with small bilateral pleural effusions.
--- NOTE | 2024-06-17 14:05 | PC.OT ---
HOLD SKILLED O.T. LYMPHEDEMA TREATMENT DUE TO DECLINE IN FUNCTION AND STATUS. WILL CHECK ON PATIENT TOMORROW.
[2024-06-17] MEDS: midodrine 5 mg TABLET 10 MG PO ×2 (14:26→21:32)
[2024-06-17] MEDS: FUROsemide 10 mg/mL SDV 4mL 40 MG IVP (14:33)
[2024-06-17 15:25] LABS: ABG PCO2 51.2 mmHg (35-45); ABG PH Result 7.38 (7.35-7.45); Alveolar-Arterial Oxygen Gradi 7.1 mmHg (5-10); Arterial Blood Gas Hematocrit 31.1 % (37-47); Base Excess ABG 4.1 mmol/L (-2.0-2.0); Blood Gas Operator Identificat GD; Blood Gas Sample Site Brachial, left; Blood Gas Sample Type Arterial; Carboxyhemoglobin 1.2 %THgb (0.4-20.1); HCO3 ABG 30.1 mmol/L (22-26); HGB O2 Sat 94.4 % (95-100); Ionized Calcium Level - ABG 1.2 mmol/L (1.1-1.4); Methemoglobin 1.1 % (0.4-1.5); Oxygen Device BIPAP; Oxygen Saturation ABG 96.6; PO2 ABG 83.7 mmHg (80.0-100.0); PO2 FiO2 Ratio Arterial Blood 298; Potassium Level - ABG 3.1 mmol/L (3.5-5.0); Total Hemoglobin 10.1 g/dL (12-16)
[2024-06-17 15:26] LABS: Blood Gas Tidal Volume 0.45
[2024-06-17 15:56] LABS: Blood Urea Nitrogen 55 mg/dL (8-23); Calcium 9.9 mg/dL (8.5-10.5); Carbon Dioxide 28 mmol/L (22-29); Chloride 94 mmol/L (98-107); Creatinine Clr Calc Pharmacy 16.7758; Glucose 118 mg/dL (65-115); Osmolality Calculated 304 mOsm/kg (285-295); Sodium 139 mmol/L (136-145)
[2024-06-17 16:04] LABS: Anion Gap 20.3 (5-19); Potassium 3.3 mmol/L (3.5-5.1)
[2024-06-17 16:06] LABS: Cortisol Random 17.01 ug/dL (2.47-19.5)
[2024-06-17] MEDS: dextrose 10% 1,000 ML 50 ML IV (17:00)
--- NOTE | 2024-06-17 17:06 | P.PN_ITS ---
Subjective 2 Subjective: Hospital course, labs appreciated. Overnight patient was transferred to ICU because of persistent hypoglycemia associated with hypercapnia for which she was placed on BiPAP. Currently seen with at bedside. Patient is hemodynamically stable and afebrile. Saturating more than 95%. Vitals/I&O/Wt Last Vital Signs Temp 98.6 F 06/16/24 19:57 Pulse 60 06/17/24 16:00 Resp 17 06/17/24 16:00 BP 102/51 06/17/24 16:00 Pulse Ox 97 06/17/24 15:00 O2 Del Method BiPAP 06/17/24 09:46 O2 Flow Rate 2 06/16/24 13:46 FiO2 28 06/17/24 12:23 06/17/24 06/17/24 06/17/24 06:59 14:59 22:59 Intake Total 671.333 / 871.333 Output Total 10 / 110 Balance 661.333 / 761.333 Weight last 48 hrs Weight 131.542 kg Weight 134.263 kg Physical Exam 2 Narrative: General:Ill-appearing, waking up to verbal stimulus, not following directions HEENT: PERRLA, pupils bilaterally equal and reactive Chest: Bilateral bronchial breath sounds with decreased air entry all over lung leavitt, occasional rhonchi CVS: S1-S2 regular, pansystolic murmur at apex, no tachycardia, no gallops, no rubs Abdomen: Soft, nontender, no organomegaly, bowel sounds present Neuro: Moving all limbs, Extremity: Bilateral lower limb 3+ edema up to mid thigh, lymphedema, fluid blisters fluid-filled on right medial thigh, right ankle no open ulcers Urinary Catheter Management: García: Cath Placed During This Visit: yes Reason for Continuing Indwelling Catheter: Accurate Measurement of Urinary Output in Critically Ill Patients Urinary Catheter Date of Insertion: 06/08/24 Urinary Catheter Time of Insertion: 01:19 Data 06/17/24 03:45 06/17/24 15:12 Micro: Microbiology 06/17/24 12:05 Blood Culture - Preliminary Blood SPECIMEN COLLECTED 06/17/24 10:30 Blood Culture - Preliminary Blood SPECIMEN COLLECTED A&P Assessment and plan (1) Metabolic encephalopathy: (2) BENJAMIN (acute kidney injury): (3) Hepatorenal syndrome with acute kidney injury: (4) Transaminitis: (5) CHF (congestive heart failure): Qualifiers: Heart failure type: combined systolic and diastolic Heart failure chronicity: acute Qualified Code(s): I50.41 - Acute combined systolic (congestive) and diastolic (congestive) heart failure (6) Lymphedema: (7) Hypercapnia: (8) S/P placement of cardiac pacemaker: (9) Varicose veins of bilateral lower extremities with pain: (10) Peripheral vascular disease: (11) Iron deficiency anemia: Qualifiers: Iron deficiency anemia type: other iron deficiency Qualified Code(s): D 50.8 - Other iron deficiency anemias (12) Peripheral edema: (13) Moderate mitral regurgitation: (14) Chronic atrial fibrillation: (15) Sick sinus syndrome: (16) Claudication: (17) Colon cancer: Qualifiers: Colon location: unspecified part of colon Qualified Code(s): C18.9 - Malignant neoplasm of colon, unspecified (18) Goals of care, counseling/discussion: Plan Metabolic encephalopathy: In setting of hypercapnia because of hypoglycemia and hepatic encephalopathy. Monitor daily. CT head done earlier in the admission negative for acute normality. Hepatic Encephalopathy - Most likely in setting of hepatorenal syndrome. Patient does have worsening transaminitis with hyperbilirubinemia. Appreciate ammonia levels. Not able to get lactulose regularly because of alternating mentation. NG tube placement. Lactulose 20 mg 4 times daily. Target bowel movements more than 3-4 daily. Monitor ammonia levels. Hepatitis panel negative. Concerns for hepatorenal syndrome. Lactulose as above. Increase midodrine to 10 mg 3 times daily. Already getting IV albumin every 12 hourly. Acute Kidney Injury on Chronic Kidney Disease Most likely in setting of overdiuresis with i intravascular volume depletion. Did have hypertensive episodes before. Nephrology on board. Medical reconciliation done for nephrotoxic drugs. Monitor renal functions daily. Strict input output charting, daily weights. IV Lasix 40 mg one-time. Monitor urine output. - BMP in afternoon. Enterococcus UTI - UA noted to be positive for Enterococcus Susceptible to ampicillin Continue with ampicillin to finish a 7-day course. Acute Diastolic Congestive Heart Failure Exacerbation Echocardiogram done earlier in the admission shows an EF of 35% with grade 3 diastolic dysfunction, moderate pulmonary hypertension with RVSP of 38 mmHg, moderate MR. IV diuresis as above. Strict input charting, daily weights. Hypercapnia: Most likely in setting of poor mentation. Currently on BiPAP. Repeat ABG. Remove BiPAP depending on the repeat ABG results. Continue to monitor. Patient does have baseline COPD. Can plan for Solu-Medrol 40 mg Q8 hourly along with Pulmicort twice daily and ipratropium, Xopenex every 6 hourly. Hypoglycemia: Most likely in setting of worsening transaminitis. Solu-Medrol as above will help. Check cortisol level. Hypoglycemia protocol. Chronic Lymphedema - The patient has significant fluid overload with Anasarca and lower extremity edema complicated by blister formation, likely secondary to edema along with venous stasis. - Likely due to Venous stasis due to immobility and heart failure. Plan for lymphedema wraps. Atrial Fibrillation/Sick Sinus Syndrome Status Post Pacemaker - The patient has a history of atrial fibrillation, sick sinus syndrome, and pacemaker placement. Currently off anticoagulation due to prior gastrointestinal bleeding. Plan: 1. Her cardizem, metoprolol are currently on hold. Continue with home dose of propafenone. Goals of care discussion: Discussed in detail with patient's at bedside along with daughter Mr. Cho over the phone. We discussed the etiology of patient's poor mentation along with transaminitis, acute kidney injury with concerns for lymphedema. Discussed possibility of treatment with NG tube placement with lactulose to monitor mentation with possible improvement in ammonia levels in next 48 to 72 hours versus hospice care. Patient's son is on a cruise right now and they want to continue with current treatment plan. Discussed about CODE STATUS. Daughters will discuss further with her father and make decisions accordingly. Full code for now. 2. Continue to monitor on telemetry DVT prophylaxis: Heparin 5000 units Q12 PDMP PDMP Reviewed: Not Reviewed Attestations 2 Medical Necessity Statement*: Requires further hospitalization for management of metabolic encephalopathy in setting of hypercapnia, transaminitis with hepatorenal syndrome, hyperammonemia, BENJAMIN, lymphedema Diagnoses Metabolic encephalopathy G93.41 BENJAMIN (acute kidney injury) N17.9 Hepatorenal syndrome with acute kidney injury K76.7; N17.9 Transaminitis R74.01 Diastolic congestive heart failure, unspecified HF chronicity I50.41 Heart failure type: combined systolic and diastolic Heart failure chronicity: acute Lymphedema I89.0 Hypercapnia R06.89 S/P placement of cardiac pacemaker Z95.0 Varicose veins of bilateral lower extremities with pain I83.813 Peripheral vascular disease I73.9 Other iron deficiency anemia D50.8 Iron deficiency anemia type: other iron deficiency Peripheral edema R60.0 Moderate mitral regurgitation I34.0 Chronic atrial fibrillation I48.20 Sick sinus syndrome I49.5 Claudication I73.9 Malignant neoplasm of colon, unspecified part of colon C18.9 Colon location: unspecified part of colon Goals of care, counseling/discussion Z71.89
[2024-06-17] MEDS: potassium chloride oral liq 20 mEq/15 mL UDC 40 MEQ PO (17:27)
[2024-06-17] MEDS: bumetanide 0.25 mg/mL SDV 10 mL 2 MG IVP (18:09)
[2024-06-17] MEDS: methylPREDNISolone sod succ 40 mg/mL INJ IVP (18:09)
[2024-06-17] MEDS: budesonide 0.5 mg/2 mL Neb INHALATION (19:09)
[2024-06-17] MEDS: levalbuterol 0.63 mg/3 mL Neb INHALATION (19:09)
[2024-06-17] MEDS: ipratropium 0.5 mg/2.5 mL Neb INHALATION (19:09)
[2024-06-17 19:57] LABS: Glucose Point of Care 117 mg/dL (70-110)
[2024-06-17 22:17] LABS: Glucose Point of Care 129 mg/dL (70-110)
[2024-06-18] VITALS (23 sets, daily range): BP systolic 102–130; BP diastolic 56–87; PULSE 60–69; RESP 14–21; TEMP 36.3; O2SAT 84–99
[2024-06-18] MEDS: levalbuterol 0.63 mg/3 mL Neb INHALATION ×4 (02:40→20:30)
[2024-06-18] MEDS: ipratropium 0.5 mg/2.5 mL Neb INHALATION ×4 (02:40→20:30)
[2024-06-18 02:49] LABS: Glucose Point of Care 127 mg/dL (70-110)
[2024-06-18] MEDS: albumin 25 G/100 ML BAG 60 G IV ×4 (03:00→17:35)
[2024-06-18] MEDS: methylPREDNISolone sod succ 40 mg/mL INJ IVP ×3 (03:00→21:03)
[2024-06-18] MEDS: SODIUM CHLORIDE 0.9% IV ×2 (03:00→12:06)
[2024-06-18] MEDS: AMPICILLIN IV ×2 (03:00→12:06)
[2024-06-18 04:20] LABS: Eosinophils % 0.2 %; Hematocrit 32.5 % (36-47); Lymphocytes # 0.7 10^3/uL (0.8-4.8); Lymphocytes % 10.8 %; Mean Corpuscular HGB Conc 30.5 g/dL (30-55); Mean Corpuscular Hemoglobin 26.8 pg (27-33); Mean Corpuscular Volume 87.8 fl (85-98); Mean Platelet Volume 11.3 fL (7.4-10.4); Monocytes # 0.3 10^3/uL (0.2-0.9); Neutrophils # 5.58 10^3/uL (1.8-7.7); Neutrophils % 84.7 %; Nucleated Red Blood Cells # 0.1 /100WBC; Nucleated Red Blood Cells % 1.1 %; Platelet Count 87 10^3/cmm (157-399); Red Cell Distribution Width 19.4 % (12.1-15.1); White Blood Count 6.58 10^3/uL (3.29-11.43)
[2024-06-18 04:22] LABS: Glucose Point of Care 139 mg/dL (70-110)
[2024-06-18 04:36] LABS: Alanine Aminotransferase 125 U/L (0-33); Albumin Level 4.3 g/dL (3.5-5.2); Alkaline Phosphatase 101 U/L (35-105); Anion Gap 21.8 (5-19); Aspartate Amino Transferase 192 U/L (0-32); Blood Urea Nitrogen 55 mg/dL (8-23); Carbon Dioxide 27 mmol/L (22-29); Chloride 96 mmol/L (98-107); Creatinine Clr Calc Pharmacy 14.9118; Globulin 1.8 g/dL (1.3-4.6); Glucose 134 mg/dL (65-115); Magnesium 1.9 mg/dL (1.7-2.3); Osmolality Calculated 309 mOsm/kg (285-295); Phosphorus 4.4 mg/dL (2.5-4.5); Potassium 3.8 mmol/L (3.5-5.1); Sodium 141 mmol/L (136-145); Total Bilirubin 2.8 mg/dL (0.15-1.2); Total Protein 6.1 g/dL (6.6-8.7)
[2024-06-18] MEDS: pantoprazole 40 mg SDV IVP ×2 (05:41→17:35)
[2024-06-18] MEDS: heparin 5,000 unit/mL INJ 1 mL 5000 UNIT SUBCUT ×2 (05:42→17:35)
[2024-06-18] MEDS: budesonide 0.5 mg/2 mL Neb INHALATION ×2 (07:37→20:30)
--- NOTE | 2024-06-18 08:39 | PC.SLP ---
Therapist and nursing attempted to wake and alert patient to participate in therapy. Patient was not able to be aroused for therapy.
[2024-06-18] MEDS: propafenone 150 mg Tablet PO ×3 (08:53→21:06)
[2024-06-18] MEDS: lactulose oral liq 20 gm/30 mL UDC PO ×3 (08:53→17:35)
[2024-06-18] MEDS: sennosides-docusate Tablet 1 TAB PO (08:53)
[2024-06-18] MEDS: nystatin powder 15 gm Btl 1 APPLIC TOPICAL ×2 (08:54→17:36)
[2024-06-18] MEDS: midodrine 5 mg TABLET 10 MG PO ×3 (08:54→21:06)
[2024-06-18 09:13] LABS: Creatinine Urine, Random 72 mg/dL (28-217)
[2024-06-18 09:32] LABS: Glucose Point of Care 144 mg/dL (70-110)
[2024-06-18 10:00] LABS: Microalbum Creatinine Ratio Ur 556 mg/dL (0-20); Microalbumin Random Urine > 40 ug/dL (0-20); Urine Protein Random > 20 mg/dL
[2024-06-18] MEDS: blistex lip oint 7 gm Tube 1 APPLIC TOPICAL (10:37)
[2024-06-18 10:55] LABS: Glucose Point of Care 147 mg/dL (70-110)
[2024-06-18] MEDS: bumetanide 0.25 mg/mL SDV 10 mL 4 MG IVP (12:06)
[2024-06-18 13:00] LABS: Ammonia 89 umol/L (11-51)
--- NOTE | 2024-06-18 13:53 | PC.SOCIAL ---
IMM updated IMM dated and initialed, copy given to patient and copy placed in chart
--- NOTE | 2024-06-18 14:52 | PC.OT ---
OT TREATMENT: LYMPHEDEMA WRAPS HELD TODAY. UPON EXAMINATION OF THE PATIENT'S FEET; DORSUM- THERE ARE NOW BLISTERS ON B DORSUM OF FOOT AND REDNESS/PURPLE HAVE WORSENED. WILL ASSESS PATIENT TOMORROW TO DETERMINE FURTHER NEEDS FOR SKILLED OT LYMPHEDEMA TREATMENT.
--- NOTE | 2024-06-18 15:01 | PM.PN ---
Subjective Subjective: Seen with at bedside. Patient is awake and alert today. Following some directions. Remains tired and lethargic though. Hemodynamically stable. Bilateral pressures maintained over 70. Minimal urine output yesterday. Seen on nasal cannula today. Vitals/I&O/Wt Last Vital Signs Temp 98.6 F 06/16/24 19:57 Pulse 68 06/18/24 14:23 Resp 18 06/18/24 14:10 BP 120/82 06/18/24 12:00 Pulse Ox 96 06/18/24 14:10 O2 Del Method Nasal Cannula 06/18/24 14:10 O2 Flow Rate 2 06/18/24 14:10 FiO2 28 06/18/24 07:30 06/18/24 06/18/24 06/18/24 06:59 14:59 22:59 Intake Total 192.5 / 1051.167 Output Total 30 / 230 Balance 162.5 / 821.167 Weight last 48 hrs Weight 132 kg Weight 131.542 kg Physical Exam Narrative: General:Ill-appearing, awake and alert, following directions, HEENT: PERRLA, pupils bilaterally equal and reactive Chest: Bilateral bronchial breath sounds with decreased air entry all over lung leavitt, occasional rhonchi CVS: S1-S2 regular, pansystolic murmur at apex, no tachycardia, no gallops, no rubs Abdomen: Soft, nontender, no organomegaly, bowel sounds present Neuro: Moving all limbs, Extremity: Bilateral lower limb 3+ edema up to mid thigh, lymphedema, fluid blisters fluid-filled on right medial thigh, right ankle no open ulcers Urinary Catheter Management: García: Cath Placed During This Visit: yes Reason for Continuing Indwelling Catheter: Accurate Measurement of Urinary Output in Critically Ill Patients Urinary Catheter Date of Insertion: 06/08/24 Urinary Catheter Time of Insertion: 01:19 Data 06/18/24 03:45 06/18/24 03:45 Micro: Microbiology 06/17/24 12:05 Blood Culture - Preliminary Blood NEGATIVE TO DATE 06/17/24 10:30 Blood Culture - Preliminary Blood NEGATIVE TO DATE A&P Assessment and plan (1) Metabolic encephalopathy: (2) BENJAMIN (acute kidney injury): (3) Hepatorenal syndrome with acute kidney injury: (4) Transaminitis: (5) CHF (congestive heart failure): Qualifiers: Heart failure chronicity: acute Heart failure type: combined systolic and diastolic Qualified Code(s): I50.41 - Acute combined systolic (congestive) and diastolic (congestive) heart failure (6) Lymphedema: (7) Hypercapnia: (8) S/P placement of cardiac pacemaker: (9) Varicose veins of bilateral lower extremities with pain: (10) Peripheral vascular disease: (11) Iron deficiency anemia: Qualifiers: Iron deficiency anemia type: other iron deficiency Qualified Code(s): D50.8 - Other iron deficiency anemias (12) Peripheral edema: (13) Moderate mitral regurgitation: (14) Chronic atrial fibrillation: (15) Sick sinus syndrome: (16) Claudication: (17) Colon cancer: Qualifiers: Colon location: unspecified part of colon Qualified Code(s): C18.9 - Malignant neoplasm of colon, unspecified (18) Goals of care, counseling/discussion: Plan Metabolic encephalopathy: In setting of hypercapnia because of hypoglycemia and hepatic encephalopathy. Resolving. Monitor daily. CT head done earlier in the admission negative for acute normality. Hepatic Encephalopathy - Most likely in setting of hepatorenal syndrome. Patient does have worsening transaminitis with hyperbilirubinemia. Monitor daily ammonia levels. C/w Lactulose 20 mg 4 times daily through NG . Target bowel movements more than 3-4 daily. Monitor ammonia levels. Hepatitis panel negative. Concerns for hepatorenal syndrome. Lactulose as above. Increase midodrine to 10 mg 3 times daily. Continue with IV albumin every 8 hours. Acute Kidney Injury on Chronic Kidney Disease Most likely in setting of overdiuresis with intravascular volume depletion. Did have hypotensive episodes before. Nephrology on board. Medical reconciliation done for nephrotoxic drugs. Monitor renal functions daily. Strict input output charting, daily weights. IB bumex 4 mg one time. Minimal urine output with Lasix yesterday. X-ray from yesterday concerns for congestion. Repeat chest x-ray today. - BMP in afternoon. Enterococcus UTI - UA noted to be positive for Enterococcus Susceptible to ampicillin Continue with ampicillin to finish a 7-day course. Acute Diastolic Congestive Heart Failure Exacerbation Echocardiogram done earlier in the admission shows an EF of 35% with grade 3 diastolic dysfunction, moderate pulmonary hypertension with RVSP of 38 mmHg, moderate MR. IV diuresis as above. Strict input charting, daily weights. Hypercapnia: Most likely in setting of poor mentation. Currently on BiPAP. Repeat ABG shows improvement. BiPAP nightly as needed Continue to monitor. Patient does have baseline COPD. Wean Solu-Medrol 40 mg IV every 12 hourly along with Pulmicort twice daily and ipratropium, Xopenex every 6 hourly. Hypoglycemia: Most likely in setting of worsening transaminitis. Solu-Medrol as above will help. Appreciate normal cortisol level. Hypoglycemia protocol. Chronic Lymphedema - The patient has significant fluid overload with Anasarca and lower extremity edema complicated by blister formation, likely secondary to edema along with venous stasis. - Likely due to Venous stasis due to immobility and heart failure. Hold off on lymphedema wraps because of blisters at the dorsum of the foot Atrial Fibrillation/Sick Sinus Syndrome Status Post Pacemaker - The patient has a history of atrial fibrillation, sick sinus syndrome, and pacemaker placement. Currently off anticoagulation due to prior gastrointestinal bleeding. Plan: 1. Her cardizem, metoprolol are currently on hold. Continue with home dose of propafenone. Goals of care discussion: Discussed in detail with patient's at bedside along with daughter Mr. Cho over the phone. We discussed the etiology of patient's poor mentation along with transaminitis, acute kidney injury with concerns for lymphedema. Discussed possibility of treatment with NG tube placement with lactulose to monitor mentation with possible improvement in ammonia levels in next 48 to 72 hours versus hospice care. Patient's son is on a cruise right now and they want to continue with current treatment plan. Discussed about CODE STATUS. Daughters will discuss further with her father and make decisions accordingly. Full code for now. DVT prophylaxis: Heparin 5000 [facility] PDMP Reviewed: Not Reviewed Attestations Medical Necessity Statement*: Requires further hospitalization for management of BENJAMIN on CKD, transaminitis with concerns for hepatorenal syndrome, lymphedema Diagnoses Metabolic encephalopathy G93.41 BENJAMIN (acute kidney injury) N17.9 Hepatorenal syndrome with acute kidney injury K76.7; N17.9 Transaminitis R74.01 Diastolic congestive heart failure, unspecified HF chronicity I50.41 Heart failure chronicity: acute Heart failure type: combined systolic and diastolic Lymphedema I89.0 Hypercapnia R06.89 S/P placement of cardiac pacemaker Z95.0 Varicose veins of bilateral lower extremities with pain I83.813 Peripheral vascular disease I73.9 Other iron deficiency anemia D50.8 Iron deficiency anemia type: other iron deficiency Peripheral edema R60.0 Moderate mitral regurgitation I34.0 Chronic atrial fibrillation I48.20 Sick sinus syndrome I49.5 Claudication I73.9 Malignant neoplasm of colon, unspecified part of colon C18.9 Colon location: unspecified part of colon Goals of care, counseling/discussion Z71.89
--- NOTE | 2024-06-18 15:11 | P.PN_ITS ---
Subjective 2 Subjective: On 3 L O2 by nasal cannula, mental status has slightly improved Patient has been at bedside Medications: Reviewed: Yes Vitals/I&O/Wt Last Vital Signs Temp 98.6 F 06/16/24 19:57 Pulse 68 06/18/24 14:23 Resp 18 06/18/24 14:10 BP 120/82 06/18/24 12:00 Pulse Ox 96 06/18/24 14:10 O2 Del Method Nasal Cannula 06/18/24 14:10 O2 Flow Rate 2 06/18/24 14:10 FiO2 28 06/18/24 07:30 06/18/24 06/18/24 06/18/24 06:59 14:59 22:59 Intake Total 192.5 / 1051.167 Output Total 30 / 230 Balance 162.5 / 821.167 Weight last 48 hrs Weight 132 kg Weight 131.542 kg Physical Exam 2 Narrative: elderly lady in bed, on 3L NC VS noted heent- nc/at, eomi, anicteroc neck supple lungs dull bases b/l heart-regular, paced rhythm, +s1, s2 abd soft, + bs ext + b/l lymphedema Urinary Catheter Management: García: Cath Placed During This Visit: yes Reason for Continuing Indwelling Catheter: Accurate Measurement of Urinary Output in Critically Ill Patients Urinary Catheter Date of Insertion: 06/08/24 Urinary Catheter Time of Insertion: 01:19 Data 06/18/24 03:45 06/18/24 03:45 Micro: Microbiology 06/17/24 12:05 Blood Culture - Preliminary Blood NEGATIVE TO DATE 06/17/24 10:30 Blood Culture - Preliminary Blood NEGATIVE TO DATE A&P Assessment and plan (1) BENJAMIN (acute kidney injury): 83 year old female with history of colon cancer status post hemicolectomy, sick sinus syndrome and a fib status post pacemaker, not on anticoagulation secondary to GI bleed, diastolic CHF- HFpEF, severly elevated filling pressures, moderate pulm htn, moderate MR. Pt presented on 06/07/24 with leg swelling and blistering, inability to walk and generalized weakness. 3 weeks prior to admission she was started on Bumex. Patient was admitted and started on diuretics- Her baseline cr is 0.8- 1 mg/dl. by may on admission her cr chuck to 1.6 mg/dl- 1. BENJAMIN- Creatinine is up to 3.6 mg/dl - Urine analysis showed 1+ protein and 3+ blood +RBCs . -await nima, anca anti gbm normal complements Will check urine protein to creatinine ratio, urine sodium is 12 indicating intravascular volume depletion likely from diuresis CPK normal - Has elevated Free light chains with increased K/L ratio , No M spike - Hematology eval as out pt -she has lymphedema-not much response to diuretics currently, and IV albumin -Continue to monitor as long as patient's O2 requirement remained stable, and discussed goals of care including dialysis. -no rash, fever, or eosinophilia- less likely AIN \ 2. anemia and BENJAMIN - Has elevated Free light chains, needs Hematology eval ferritin 56 % sat 4.8- is iron deficient 3. HFpEF- grade III/ IV diastolic dysfunction, RVSP elevated at 38, and moderate MR -Amyloidosis could cause LVH with restrictive pattern and BENJAMIN- review with cardiology -no brionna-i, arb, aldactone, SGLT2-i w/ BENJAMIN 4. ammonia 140 - improved with medical therapy - liver eval as per medical team. -continue therapy until ammonia normalizes 5. bp on low side can give midodrine seen and examined w/ RN using A/V equipment 6. hypercapneic resp acidosis Plan see above PDMP PDMP Reviewed: Not Reviewed Attestations 2 Medical Necessity Statement*: per nirali Coding Level of Care Code Acute Code for [facility] Fwd Diagnoses BENJAMIN (acute kidney injury) N17.9
[2024-06-18 16:50] LABS: Glucose Point of Care 150 mg/dL (70-110)
[2024-06-18 16:52] LABS: Glucose Point of Care 160 mg/dL (70-110)
[2024-06-18 17:10] LABS: Anion Gap 23.8 (5-19); Blood Urea Nitrogen 57 mg/dL (8-23); Calcium 10.2 mg/dL (8.5-10.5); Carbon Dioxide 25 mmol/L (22-29); Chloride 93 mmol/L (98-107); Creatinine Clr Calc Pharmacy 14.9448; Glucose 149 mg/dL (65-115); Osmolality Calculated 305 mOsm/kg (285-295); Potassium 3.8 mmol/L (3.5-5.1); Sodium 138 mmol/L (136-145)
[2024-06-18 17:25] LABS: Glomerular Bsmt Membrane IGG <1.0 AI
[2024-06-18 18:10] LABS: Glucose Point of Care 141 mg/dL (70-110)
[2024-06-18 20:19] LABS: Glucose Point of Care 135 mg/dL (70-110)
[2024-06-18 22:34] LABS: Glucose Point of Care 146 mg/dL (70-110)
[2024-06-19] VITALS (22 sets, daily range): BP systolic 101–131; BP diastolic 63–74; PULSE 60–77; RESP 15–22; TEMP 34.2–37; O2SAT 93–96
[2024-06-19 00:50] LABS: Glucose Point of Care 130 mg/dL (70-110)
[2024-06-19] MEDS: albumin 25 G/100 ML BAG 60 G IV ×2 (01:01→10:05)
[2024-06-19 02:49] LABS: Glucose Point of Care 135 mg/dL (70-110)
--- NOTE | 2024-06-19 02:51 | XRR_ITS ---
PROCEDURE INFORMATION: Exam: XR Chest Exam date and time: 06/19/2024 3:00 AM Age: 83 years old Clinical indication: Device placement; Picc; Additional info: Assess picc placement TECHNIQUE: Imaging protocol: Radiologic exam of the chest. Views: 1 view. COMPARISON: CR XR chest 1V portable [id number] 06/17/2024 2:08 PM FINDINGS: Tubes, catheters and devices: Peripherally inserted right upper extremity PICC line with catheter tip at the level of the right atrium. Enteric tube traverses midline, catheter tip and side fenestration not within the field of view. Dual lead pacer device is unchanged. Lungs: Increased interstitial lung markings bilaterally. Pleural spaces: Blunting of the bilateral costophrenic angles, twrth-lwyceen-ewib-left. Heart/Mediastinum: Cardiomegaly. Vasculature: Mild vascular indistinctness. Bones/joints: Degenerative changes without acute finding. XR/XR chest 1V portable [id number] IMPRESSION: 1. Intervally placed PICC line with catheter tip at the level of the right atrium, consider 4-5 cm of retraction. 2. Otherwise, mild increase in pulmonary edema and pleural effusions.
--- NOTE | 2024-06-19 02:52 | USCV_ITS ---
Yadira Krishnan Age: 83 Gender: F : 1940 Exam Date: 06/19/2024 03:20 Ordering Phys: Margo Arizmendi MD Technologist: HAWA Exam Location: [facility] [place]_ Indication: Assess PICC placement Morbid obesity. HISTORY: Assess PICC placement Morbid obesity. Patient on BIPAP is unresponsive. PROCEDURES: Venous duplex imaging was performed in only the right upper extremity. The following venous structures were evaluated: internal jugular vein, subclavian vein, axillary vein, and brachial veins. In addition, the basilic vein, cephalic vein, radial vein, and ulnar vein. Serial compression, augmentation maneuvers, and spectral Doppler flow evaluation were performed, which were normal. The PICC line is well visualized. It originates in the RIGHT mid Basilic Vein, extends into the RIGHT Axillary Vein, and into the RIGHT Subclavian vein. .These veins are easily compressible. Venous flow is spontaneous and pulsatile. Augmentation is normal. There is no evidence of thrombus in these veins. The RIGHT Cephalic Vein, likewise, is easily compressible, with spontaneous venous flow pattern, somewhat pulsatile with good augmentatioon. The RIGHT Radial Veins and RIGHT Ulnar veins are visualized only in the distal RIGHT forearm due to bandages proximally. Both the RIGHT Radial Veins and RIGHT Ulnar veins are easily compressible with good augmentation. No evidence of thrombus in the RIGHT upper extremity. CONCLUSIONS No evidence of thrombus of the right upper extremity veins. Picc line seen to extend into subclavian vein Roel Worthington MD (Electronically Signed) Final Date: 19 June 2024 12:08 S
[2024-06-19] MEDS: SODIUM CHLORIDE 0.9% IV ×2 (02:54→21:23)
[2024-06-19] MEDS: AMPICILLIN IV ×2 (02:54→21:23)
[2024-06-19] MEDS: levalbuterol 0.63 mg/3 mL Neb INHALATION ×4 (03:21→21:06)
[2024-06-19] MEDS: ipratropium 0.5 mg/2.5 mL Neb INHALATION ×4 (03:21→21:06)
[2024-06-19 04:13] LABS: Glucose Point of Care 133 mg/dL (70-110)
--- NOTE | 2024-06-19 05:27 | PC.NURSE ---
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 Rectal temp reading 93.6, physician notified and bear hugger placed. Several hours later temp was rechecked and rectal temp 94.2 and confirmed with a second thermometer. Pt still under bear hugger.
[2024-06-19 05:35] LABS: Hematocrit 30.5 % (36-47); Lymphocytes # 0.8 10^3/uL (0.8-4.8); Lymphocytes % 12.9 %; Mean Corpuscular HGB Conc 30.8 g/dL (30-55); Mean Corpuscular Volume 87.6 fl (85-98); Monocytes # 0.3 10^3/uL (0.2-0.9); Monocytes % 4.7 %; Neutrophils # 5.19 10^3/uL (1.8-7.7); Neutrophils % 81.8 %; Nucleated Red Blood Cells # 0.1 /100WBC; Nucleated Red Blood Cells % 1.7 %; Platelet Count 73 10^3/cmm (157-399); Red Blood Count 3.48 10^6/uL (3.85-5.65); Red Cell Distribution Width 19.6 % (12.1-15.1); White Blood Count 6.35 10^3/uL (3.29-11.43)
[2024-06-19 05:55] LABS: Alanine Aminotransferase 93 U/L (0-33); Albumin Level 4.9 g/dL (3.5-5.2); Alkaline Phosphatase 88 U/L (35-105); Anion Gap 23.7 (5-19); Aspartate Amino Transferase 117 U/L (0-32); Blood Urea Nitrogen 57 mg/dL (8-23); Calcium 10.2 mg/dL (8.5-10.5); Carbon Dioxide 25 mmol/L (22-29); Chloride 94 mmol/L (98-107); Creatinine Clr Calc Pharmacy 14.2758; Globulin 1.7 g/dL (1.3-4.6); Glucose 127 mg/dL (65-115); Osmolality Calculated 305 mOsm/kg (285-295); Phosphorus 4.8 mg/dL (2.5-4.5); Potassium 3.7 mmol/L (3.5-5.1); Sodium 139 mmol/L (136-145); Total Protein 6.6 g/dL (6.6-8.7)
[2024-06-19] MEDS: heparin 5,000 unit/mL INJ 1 mL 5000 UNIT SUBCUT (05:58)
[2024-06-19] MEDS: pantoprazole 40 mg SDV IVP (05:58)
[2024-06-19 06:08] LABS: Glucose Point of Care 134 mg/dL (70-110)
[2024-06-19 07:38] LABS: Glucose Point of Care 129 mg/dL (70-110)
[2024-06-19] MEDS: budesonide 0.5 mg/2 mL Neb INHALATION ×2 (08:21→21:06)
[2024-06-19 08:28] LABS: ABG PCO2 51.8 mmHg (35-45); ABG PH Result 7.35 (7.35-7.45); Arterial Blood Gas Hematocrit 30.7 % (37-47); Base Excess ABG 2.1 mmol/L (-2.0-2.0); Blood Gas Allen Test Pos; Blood Gas Operator Identificat gerca; Blood Gas Sample Site Radial, left; Blood Gas Sample Type Arterial; Carboxyhemoglobin 1.2 %THgb (0.4-20.1); HCO3 ABG 28.4 mmol/L (22-26); HGB O2 Sat 93.2 % (95-100); Ionized Calcium Level - ABG 1.3 mmol/L (1.1-1.4); Oxygen Device BIPAP; Oxygen Saturation ABG 95.2; Potassium Level - ABG 3.5 mmol/L (3.5-5.0)
[2024-06-19 08:29] LABS: Alveolar-Arterial Oxygen Gradi 8.3 mmHg (5-10); PO2 FiO2 Ratio Arterial Blood 271
[2024-06-19 09:31] LABS: ANCA Screen NEGATIVE (NEGATIVE)
[2024-06-19] MEDS: lactulose oral liq 20 gm/30 mL UDC PO ×4 (10:02→21:07)
[2024-06-19] MEDS: methylPREDNISolone sod succ 40 mg/mL INJ IVP ×2 (10:03→21:05)
[2024-06-19] MEDS: propafenone 150 mg Tablet PO ×3 (10:03→21:05)
[2024-06-19] MEDS: midodrine 5 mg TABLET 10 MG PO ×3 (10:03→21:05)
[2024-06-19] MEDS: sennosides-docusate Tablet 1 TAB PO (10:04)
[2024-06-19] MEDS: nystatin powder 15 gm Btl 1 APPLIC TOPICAL ×2 (10:04→17:49)
[2024-06-19] MEDS: dextrose 10% 1,000 ML 50 ML IV (10:05)
--- NOTE | 2024-06-19 10:27 | PC.OT ---
OT TREATMENT HELD TODAY DUE TO WORSENING PATIENT STATUS WELL CONTINUED FOOT WOUNDS (DORSUM).
[2024-06-19 11:03] LABS: Glucose Point of Care 114 mg/dL (70-110)
--- NOTE | 2024-06-19 13:34 | P.PN_ITS ---
Subjective 2 Subjective: Patient currently on BiPAP, anuric at bedside Medications: Reviewed: Yes Vitals/I&O/Wt Last Vital Signs Temp 95.1 F L 06/19/24 11:07 Pulse 65 06/19/24 11:47 Resp 19 H 06/19/24 11:47 BP 101/63 06/19/24 11:07 Pulse Ox 94 06/19/24 11:47 O2 Del Method BiPAP 06/19/24 11:47 O2 Flow Rate 2.5 06/19/24 00:00 FiO2 28 06/19/24 11:47 06/18/24 06/19/24 06/19/24 22:59 06:59 14:59 Intake Total 477.5 / 477.5 150 / 627.5 652.5 / 652.5 Output Total 0 / 0 Balance 477.5 / 477.5 150 / 627.5 652.5 / 652.5 Weight last 48 hrs Weight 133.719 kg Weight 132 kg Physical Exam 2 Narrative: elderly lady in bed, on BiPAP VS noted heent- nc/at, eomi, anicteroc neck supple lungs dull bases b/l heart-regular, paced rhythm, +s1, s2 abd soft, + bs ext + b/l lymphedema Urinary Catheter Management: García: Cath Placed During This Visit: yes Reason for Continuing Indwelling Catheter: Accurate Measurement of Urinary Output in Critically Ill Patients Urinary Catheter Date of Insertion: 06/08/24 Urinary Catheter Time of Insertion: 01:19 Data 06/19/24 05:04 06/19/24 05:04 Micro: Microbiology 06/17/24 12:05 Blood Culture - Preliminary Blood NEGATIVE TO DATE 06/17/24 10:30 Blood Culture - Preliminary Blood NEGATIVE TO DATE A&P Assessment and plan (1) BENJAMIN (acute kidney injury): 83 year old female with history of colon cancer status post hemicolectomy, sick sinus syndrome and a fib status post pacemaker, not on anticoagulation secondary to GI bleed, diastolic CHF- HFpEF, severly elevated filling pressures, moderate pulm htn, moderate MR. Pt presented on 06/07/24 with leg swelling and blistering, inability to walk and generalized weakness. 3 weeks prior to admission she was started on Bumex. Patient was admitted and started on diuretics- Her baseline cr is 0.8- 1 mg/dl. by may on admission her cr chuck to 1.6 mg/dl- 1. BENJAMIN- Creatinine is up to 3.8mg/dl, anuric, has pulmonary edema and on BiPAP - Urine analysis showed 1+ protein and 3+ blood +RBCs . -await nima, anca anti gbm normal complements Will check urine protein to creatinine ratio, urine sodium is 12 indicating intravascular volume depletion likely from diuresis CPK normal - Has elevated Free light chains with increased K/L ratio , No M spike - Hematology eval as out pt -Patient volume overloaded with no response to diuretics, discussed with patient and hospitalist, plan to attempt temporary dialysis will ask for a temporary HD catheter placement and start dialysis today, patient consented for HD \ 2. anemia and BENJAMIN - Has elevated Free light chains, needs Hematology eval ferritin 56 % sat 4.8- is iron deficient 3. HFpEF- grade III/ IV diastolic dysfunction, RVSP elevated at 38, and moderate MR -Amyloidosis could cause LVH with restrictive pattern and BENJAMIN- review with cardiology -no brionna-i, arb, aldactone, SGLT2-i w/ BENJAMIN 4. ammonia 140 - improved with medical therapy - liver eval as per medical team. -continue therapy until ammonia normalizes 5. bp on low side can give midodrine seen and examined w/ RN using A/V equipment 6. hypercapneic resp acidosis Plan see above PDMP PDMP Reviewed: Not Reviewed Attestations 2 Medical Necessity Statement*: Per medicine team Coding Level of Care Code Acute Code for [facility] Fwd Diagnoses BENJAMIN (acute kidney injury) N17.9
--- NOTE | 2024-06-19 14:01 | PM.PN ---
Subjective Subjective: No acute vents overnight. Today morning on examination patient is on BiPAP, again less responsive but wakes up to physical stimulus. Has remained hypothermic overnight. No urine output in last 24 hours even after IV Bumex. Seen again later in the day with at bedside. Vitals/I&O/Wt Last Vital Signs Temp 95.1 F L 06/19/24 11:07 Pulse 65 06/19/24 11:47 Resp 19 H 06/19/24 11:47 BP 101/63 06/19/24 11:07 Pulse Ox 94 06/19/24 11:47 O2 Del Method BiPAP 06/19/24 11:47 O2 Flow Rate 2.5 06/19/24 00:00 FiO2 28 06/19/24 11:47 06/18/24 06/19/24 06/19/24 22:59 06:59 14:59 Intake Total 477.5 / 477.5 150 / 627.5 652.5 / 652.5 Output Total 0 / 0 Balance 477.5 / 477.5 150 / 627.5 652.5 / 652.5 Weight last 48 hrs Weight 133.719 kg Weight 132 kg Physical Exam Narrative: General:Ill-appearing, awake and alert, following directions, HEENT: PERRLA, pupils bilaterally equal and reactive Chest: Bilateral bronchial breath sounds with decreased air entry all over lung leavitt, occasional rhonchi CVS: S1-S2 regular, pansystolic murmur at apex, no tachycardia, no gallops, no rubs Abdomen: Soft, nontender, no organomegaly, bowel sounds present Neuro: Moving all limbs, Extremity: Bilateral lower limb 3+ edema up to mid thigh, lymphedema, fluid blisters fluid-filled on right medial thigh, right ankle no open ulcers Resp: COMMON NORMALS: normal respiratory effort, No retractions and No use of accessory muscles AUSCULTATION: crackles Cardio: COMMON NORMALS: regular rate, regular rhythm, S1 normal heart sound present and S2 normal heart sound present RATE: regular rate RHYTHM: regular rhythm HEART SOUNDS: S1 normal heart sound present and S2 normal heart sound present GI: COMMON NORMALS: Normal to inspection, nondistended, normoactive bowel sounds present and non-tender Extremity: NARRATIVE EXTREMITY EXAM: 3+ pitting edema, anasarca, abdominal wall edema Urinary Catheter Management: García: Cath Placed During This Visit: yes Reason for Continuing Indwelling Catheter: Accurate Measurement of Urinary Output in Critically Ill Patients Urinary Catheter Date of Insertion: 06/08/24 Urinary Catheter Time of Insertion: 01:19 Data 06/19/24 05:04 06/19/24 05:04 Micro: Microbiology 06/17/24 12:05 Blood Culture - Preliminary Blood NEGATIVE TO DATE 06/17/24 10:30 Blood Culture - Preliminary Blood NEGATIVE TO DATE A&P Assessment and plan (1) Metabolic encephalopathy: (2) BENJAMIN (acute kidney injury): (3) Hepatorenal syndrome with acute kidney injury: (4) Transaminitis: (5) CHF (congestive heart failure): Qualifiers: Heart failure type: combined systolic and diastolic Heart failure chronicity: acute Qualified Code(s): I50.41 - Acute combined systolic (congestive) and diastolic (congestive) heart failure (6) Lymphedema: (7) Hypercapnia: (8) S/P placement of cardiac pacemaker: (9) Varicose veins of bilateral lower extremities with pain: (10) Peripheral vascular disease: (11) Iron deficiency anemia: Qualifiers: Iron deficiency anemia type: other iron deficiency Qualified Code(s): D50.8 - Other iron deficiency anemias (12) Peripheral edema: (13) Moderate mitral regurgitation: (14) Chronic atrial fibrillation: (15) Sick sinus syndrome: (16) Claudication: (17) Colon cancer: Qualifiers: Colon location: unspecified part of colon Qualified Code(s): C18.9 - Malignant neoplasm of colon, unspecified (18) Goals of care, counseling/discussion: Plan Metabolic encephalopathy: In setting of hypercapnia because of hypoglycemia and hepatic encephalopathy. Resolving. Monitor daily. CT head done earlier in the admission negative for acute normality. Hepatic Encephalopathy - Most likely in setting of hepatorenal syndrome. Patient does have worsening transaminitis with hyperbilirubinemia. Monitor daily ammonia levels. C/w Lactulose 20 mg 4 times daily through NG . Target bowel movements more than 3-4 daily. Monitor ammonia levels. Hepatitis panel negative. Concerns for hepatorenal syndrome. Lactulose as above. Increase midodrine to 10 mg 3 times daily. Continue with IV albumin every 8 hours. Acute Kidney Injury on Chronic Kidney Disease Most likely in setting of overdiuresis with intravascular volume depletion. Did have hypotensive episodes before. Nephrology on board. Medical reconciliation done for nephrotoxic drugs. Monitor renal functions daily. Strict input output charting, daily weights. IB bumex 4 mg one time. Minimal urine output with Lasix yesterday. X-ray from yesterday concerns for congestion. Repeat chest x-ray today. - BMP in afternoon. Enterococcus UTI - UA noted to be positive for Enterococcus Susceptible to ampicillin Continue with ampicillin to finish a 7-day course. Acute Diastolic Congestive Heart Failure Exacerbation Echocardiogram done earlier in the admission shows an EF of 35% with grade 3 diastolic dysfunction, moderate pulmonary hypertension with RVSP of 38 mmHg, moderate MR. IV diuresis as above. Strict input charting, daily weights. Hypercapnia: Most likely in setting of poor mentation. Currently on BiPAP. Repeat ABG shows improvement. BiPAP nightly as needed Continue to monitor. Patient does have baseline COPD. Wean Solu-Medrol 40 mg IV every 12 hourly along with Pulmicort twice daily and ipratropium, Xopenex every 6 hourly. Hypoglycemia: Most likely in setting of worsening transaminitis. Solu-Medrol as above will help. Appreciate normal cortisol level. Hypoglycemia protocol. Chronic Lymphedema - The patient has significant fluid overload with Anasarca and lower extremity edema complicated by blister formation, likely secondary to edema along with venous stasis. - Likely due to Venous stasis due to immobility and heart failure. Hold off on lymphedema wraps because of blisters at the dorsum of the foot Atrial Fibrillation/Sick Sinus Syndrome Status Post Pacemaker - The patient has a history of atrial fibrillation, sick sinus syndrome, and pacemaker placement. Currently off anticoagulation due to prior gastrointestinal bleeding. Plan: 1. Her cardizem, metoprolol are currently on hold. Continue with home dose of propafenone. Plan for the day: Continue BiPAP ventilation for now. Repeat ABG. Patient with hypothermic today morning. No hypoglycemia. X-ray concerning for congestion. Hold IV fluids. Monitor blood sugars every 4 hours. Continue with IV Solu-Medrol 40 mg Q12 hourly. Continue with IV albumin every 8 hour midodrine, twice daily. Patient remained negative. Discussed in detail with nephrology. Discussed in detail with patient's who is agreeable for trial of dialysis. Will consult surgery for temporary dialysis catheter placement. Plan for dialysis at the earliest. Blood work shows persistent and stable creatinine of 3.8, BUN of 57. Mild improvement in liver functions with bilirubin at 3 and AST/ALT at 117/93. Check stool for C. difficile. Patient hypothermic today. Check TSH. Last thyroid profile back in 2023 normal. Worsening thrombocytopenia. Will continue to monitor. Hemoglobin stable. Goals of care discussion: Discussed in detail with patient's at bedside along with daughter Mr. Cho over the phone. We discussed the etiology of patient's poor mentation along with transaminitis, acute kidney injury with concerns for lymphedema. Discussed possibility of treatment with NG tube placement with lactulose to monitor mentation with possible improvement in ammonia levels in next 48 to 72 hours versus hospice care. Patient's son is on a cruise right now and they want to continue with current treatment plan. Discussed about CODE STATUS. Daughters will discuss further with her father and make decisions accordingly. Full code for now. 06/19: Had further goals of care discussion with at bedside. is DPOA. Discussed about further deterioration and no improvement in last 24 to 48 hours. Discussed about patient being anuric even after high-dose diuresis over last 48 hours. Discussed about poor mentation again. states he is okay with a trial of hemodialysis. If hemodialysis does not help in next 24 to 48 hours would like to discuss further about goals of care at that time. Discussed about CODE STATUS. He states he discussed in detail with patient's daughter. Would not want any kind of chest compressions or mechanical ventilation if it comes to it. Wants to CODE STATUS to be changed. CODE STATUS changed to DNR/DNI. DVT prophylaxis: Heparin 5000 units Q[facility] PDMP PDMP Reviewed: Not Reviewed Attestations Medical Necessity Statement*: Requires further hospitalization for management of altered mental status in setting of hyperammonemia, hepatorenal syndrome, CKD with acute kidney injury with need for hemodialysis in a patient originally admitted for lower limb swelling with concerns for lymphedema. Diagnoses Metabolic encephalopathy G93.41 BENJAMIN (acute kidney injury) N17.9 Hepatorenal syndrome with acute kidney injury K76.7; N17.9 Transaminitis R74.01 Diastolic congestive heart failure, unspecified HF chronicity I50.41 Heart failure type: combined systolic and diastolic Heart failure chronicity: acute Lymphedema I89.0 Hypercapnia R06.89 S/P placement of cardiac pacemaker Z95.0 Varicose veins of bilateral lower extremities with pain I83.813 Peripheral vascular disease I73.9 Other iron deficiency anemia D50.8 Iron deficiency anemia type: other iron deficiency Peripheral edema R60.0 Moderate mitral regurgitation I34.0 Chronic atrial fibrillation I48.20 Sick sinus syndrome I49.5 Claudication I73.9 Malignant neoplasm of colon, unspecified part of colon C18.9 Colon location: unspecified part of colon Goals of care, counseling/discussion Z71.89
[2024-06-19 14:35] LABS: Free T4 Free Thyroxine 1.06 ng/dL (0.82-1.77); Thyroid Stimulating Hormone 4.14 uIU/mL (0.27-4.20)
[2024-06-19 15:00] LABS: Hepatitis B Surface AB < 3.5 (11.5-1000); Hepatitis B Surface Antigen Non-Reactive (Nonreactive)
[2024-06-19 16:09] LABS: Glucose Point of Care 124 mg/dL (70-110)
--- NOTE | 2024-06-19 16:30 | XRR_ITS ---
PROCEDURE INFORMATION: Exam: XR Chest Exam date and time: 06/19/2024 5:40 PM Age: 83 years old Clinical indication: Device placement; Other: Dialysis catheter placement TECHNIQUE: Imaging protocol: Radiologic exam of the chest. Views: 1 view. COMPARISON: CR (CHEST, ) 06/19/2024 3:00 AM FINDINGS: Tubes, catheters and devices: There is a right IJ approach central venous catheter positioned with its tip near the upper cavoatrial junction. There has a right-sided PICC positioned with its tip near the upper cavoatrial junction. There is an NG tube which tracks towards the stomach and off the field of view. Lungs: Unremarkable. No consolidation. Pleural spaces: Small bilateral pleural effusions and opacities in the left lung base with silhouetting of the left hemidiaphragm. Heart/Mediastinum: Unremarkable. No cardiomegaly. Bones/joints: Unremarkable. XR/XR chest 1V portable [id number] IMPRESSION: 1. There is a right IJ approach central venous catheter positioned with its tip near the upper cavoatrial junction. 2. There has a right-sided PICC positioned with its tip near the upper cavoatrial junction. 3. There is an NG tube which tracks towards the stomach and off the field of view. 4. Small bilateral pleural effusions and opacities in the left lung base with silhouetting of the left hemidiaphragm.
--- NOTE | 2024-06-19 16:46 | PC.SLP ---
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
--- NOTE | 2024-06-19 17:19 | P.CONIM_ITS ---
Providers/Reason For Consult 2 Consulting Physician/Specialty*: General Surgery Reason for Consult*: Prior dialysis catheter Attending Physician: Chandler Monique MD Primary Care Provider: Princess Grande MD History of Present Illness History of Present Illness Yadira Krishnan is a 83 year old female who is currently DNR/DNI, and is admitted to the hospital with hepatorenal syndrome and acute kidney injury. She is in anasarca. I was requested to pull the dialysis catheter for temporary dialysis. Review of Systems 2 General: Reports: 10 or more systems reviewed and unremarkable except in HPI and below Medications/Allergies Home Medications ?Medication ?Instructions ?Recorded ?Confirmed ?Last Taken ?Type fexofenadine 60 mg tablet (Anat 60 mg PO DAILY 07/3006/08/24 03/03/24 History Allergy) red yeast rice 600 mg capsule 600 mg PO BID 09/13/23 0 06/08/24 03/03/24 History diltiazem HCl 60 mg tablet 60 mg PO TID 90 days #270 t abs 12/04/23 06/08/24 03/03/24 Rx metoprolol tartrate 25 mg tablet 25 mg PO .AM and prn 12/24/23 06/08/24 03/03/24 History montelukast 10 mg tablet See Rx Instructions .Route 1 05/26/23 06/08/24 Unknown Rx .COMPLEX #90 tabs tramadol 50 mg tablet 50 mg PO BID PRN pain #60 ta bs 04/25/24 06/08/24 Unknown Rx ferrous sulfate 325 mg (65 mg 325 mg PO DAILY #90 tabs 06/03/24 06/08/24 Unknown Rx iron) tablet propafenone 150 mg tablet See Rx Instructions .Route 0 06/03/24 06/08/24 Unknown Rx .COMPLEX #270 tabs bumetanide 1 mg tablet 1 mg PO DAILY for swelling i nstead 06/10/24 Unknown Rx of furosemide #90 tabs Allergies Allergy/AdvReac Type Severity Reaction Status Date / Time No Known Allergies Allergy Verified 06/08/24 16:49 Current Medications Generic Name Dose Route Start Last Admin Trade Name Freq PRN Reason Stop Dose Admin Acetaminophen 500 mg 06/08/24 00:02 06/14/24 05:21 Acetaminophen 500 Mg Tablet PO 500 mg Q4H PRN Administration fever Budesonide 0.5 mg 06/17/24 20:00 06/19/24 08:21 Budesonide 0.5 Mg/2 Ml Neb INHALATION 0.5 mg BID.RESPIRATORY LAMONT Administration Camphor/Menthol/Phenol 1 applic 06/18/24 10:14 06/18/24 10:37 Blistex Lip Oint 7 Gm Tube TOPICAL 1 applic PRN PRN Administration DRYNESS Diltiazem HCl 60 mg 06/08/24 09:00 06/12/24 09:08 Diltiazem 60 Mg Tablet PO 60 mg TID LAMONT Administration Heparin Sodium (Porcine) 5,000 unit 06/08/24 06:00 06/19/24 05:58 Heparin 5,000 Unit/Ml Inj 1 Ml SUBCUT 5,000 unit Q12H LAMONT Administration Ampicillin Sodium 500 mg/ 50 mls @ 100 mls/hr 06/16/24 13:00 06/19/24 03:25 Sodium Chloride IV Infused Q12H LAMONT Infusion Dextrose 1,000 mls @ 50 mls/hr 06/16/24 23:45 06/19/24 10:05 D10w IV 50 mls/hr .Q20H LAMONT Administration Albumin Human 25 g in 100 mls @ 60 mls/hr 06/17/24 17:30 06/19/24 10:05 Albumin IV 60 mls/hr Q8H LAMONT Administration Ipratropium [place] 0.5 mg 06/17/24 20:00 06/19/24 14:00 Ipratropium 0.5 Mg/2.5 Ml Neb INHALATION 0.5 mg Q6H.RESP LAMONT Administration Lactulose 20 gm 06/17/24 13:00 06/19/24 14:32 Lactulose Oral Liq 20 Gm/30 Ml Udc PO 20 gm QID LAMONT Administration Levalbuterol HCl 0.63 mg 06/17/24 20:00 06/19/24 14:00 Levalbuterol 0.63 Mg/3 Ml Neb INHALATION 0.63 mg Q6H.RESP LAMONT Administration Methylprednisolone Sodium Succinate 40 mg 06/18/24 20:00 06/19/24 10:03 Methylprednisolone Sod Succ 40 Mg/Ml Inj IVP 40 mg Q12H LAMONT Administration Metoprolol Tartrate 25 mg 06/08/24 09:00 06/12/24 09:08 Metoprolol Tartrate 25 Mg Tablet PO 25 mg BID@0900,2100 LAMONT Administration Midodrine 10 mg 06/17/24 15:00 06/19/24 10:03 Midodrine 5 Mg Tablet PO 10 mg TID LAMONT Administration Nystatin 1 applic 06/16/24 10:45 06/19/24 10:04 Nystatin Powder 15 Gm Btl TOPICAL 1 applic BID LAMONT Administration Pantoprazole Sodium 40 mg 06/15/24 17:00 06/19/24 05:58 Pantoprazole 40 Mg Sdv IVP 40 mg Q12H LAMONT Administration Propafenone HCl 150 mg 06/08/24 09:00 06/19/24 10:03 Propafenone 150 Mg Tablet PO 150 mg TID LAMONT Administration Senna/Docusate Sodium 1 tab 06/08/24 09:00 06/19/24 10:04 Sennosides-Docusate Tablet PO 1 tab DAILY LAMONT Administration PFSH Acute 2 PFSH: Medical History (Updated 06/17/24 @ 17:26 by Chandler Monique MD) Dyslipidemia Benign essential HTN Lower GI bleed History of 2019 novel coronavirus disease (COVID-19) Sick sinus syndrome Varicose veins of bilateral lower extremities with pain CHF (congestive heart failure) last echocardiogram 11/2016, LVEF 65%, no valvular abnormality. Hyperlipidemia HTN (hypertension) Osteoarthritis Aortic valve stenosis Anxiety Bradycardia by electrocardiogram Hypertension Chronic atrial fibrillation Hypercholesteremia Surgical History (Updated 06/17/24 @ 17:17 by Chandler Monique MD) Hx of colonoscopy History of colon surgery Resection of colon with removal of tumor for cancer - 05/30/2022 @ [facility] [place] by Dr. Kingsley S/P placement of cardiac pacemaker Hx of cataract extraction Hx of cholecystectomy Family History Father CAD (coronary artery disease) Mother Cancer Lung Grandmother Diabetes Denies family history of Clotting disorder Dementia Hyperlipidemia Psychiatric illness Chronic kidney disease (CKD) Suicide Anesthesia complication Bleeding disorder Lung disease Hypertension Stroke Social History Smoking and tobacco/nicotine status: never used tobacco/nicotine Alcohol intake: never Substance/Drug Use: never Vitals/I&O/Wt Last Vital Signs Temp 95.1 F L 06/19/24 11:07 Pulse 69 06/19/24 16:00 Resp 15 06/19/24 16:00 BP 110/64 06/19/24 16:00 Pulse Ox 93 06/19/24 16:00 O2 Del Method BiPAP 06/19/24 16:00 O2 Flow Rate 2.5 06/19/24 00:00 FiO2 28 06/19/24 14:32 06/19/24 06/19/24 06/19/24 06:59 14:59 22:59 Intake Total 150 / 627.5 652.5 / 652.5 Output Total 0 / 0 Balance 150 / 627.5 652.5 / 652.5 Weight last 48 hrs Weight 294 lb 12.8 oz Weight 291 lb 0.163 oz Physical Exam 2 Narrative: Patient is unresponsive, on BiPAP. She is completely swollen, no access to the groins due to swelling. Neck examination is unremarkable. Urinary Catheter Management: García: Cath Placed During This Visit: yes Reason for Continuing Indwelling Catheter: Accurate Measurement of Urinary Output in Critically Ill Patients Urinary Catheter Date of Insertion: 06/08/24 Urinary Catheter Time of Insertion: 01:19 Data 06/19/24 05:04 06/19/24 05:04 Micro: Microbiology 06/17/24 12:05 Blood Culture - Preliminary Blood NEGATIVE TO DATE A&P Assessment and plan (1) Hepatorenal syndrome with acute kidney injury: Plan After discussion of all risk benefits with the patient with side to proceed with a temporary dialysis catheter placement. I did inform the of the possibility of pneumothorax, injury to the adjacent structures, perforation of the heart and brain vessels, infection, need for additional procedures. He agreed. We placed right IJ 16 cm dialysis catheter without complications. X-rays pending before catheter can be used for dialysis. -Catheter can be used for dialysis once chest x-ray is done. PDMP PDMP Reviewed: Not Reviewed Coding Level of Care Code Acute Code for [facility] Fwd Diagnoses Hepatorenal syndrome with acute kidney injury K76.7; N17.9
--- NOTE | 2024-06-19 17:22 | PM.ACPR ---
Procedure/Consent Time out: Time Out Performed: Yes Consent: Consent for Procedure: Consent obtained from other (indicate) (), Risks & Benefits reviewed and Agrees to proceed with procedure Procedure Narrative: Patient was seen explained position. Right neck was prepped and draped in the usual sterile fashion. Local anesthesia was infiltrated after a timeout had been completed. The right IJ was cannulated with a 18-gauge needle under direct ultrasound guidance. Immediate return of old blood was noted, wire was advanced and the needle was removed. The wire position was verified with ultrasound. I then proceeded to dilate the tract with serial sizes of dilators. I then advanced that to 16 cm dual-lumen dialysis catheter over the wire, the catheter remained in place and the wire was removed. Both lumens were working fine. The catheter was fixed in place with #2-0 silk. Sterile dressing and Biopatch was applied. Once the catheter was completely fakes I tested it again and was working fine. Patient remained in the floor in stable condition. Acute Procedures Epistaxis Control: Time out performed: Yes
[2024-06-19] MEDS: albumin 25 G/100 ML BAG 120 G IV (18:42)
--- NOTE | 2024-06-19 18:53 | PM.MISC ---
Miscellaneous Note Purpose of Documentation: Update on care Note: Xray reviewed and dialysis catheter is cleared for use.
[2024-06-19 22:57] LABS: Glucose Point of Care 124 mg/dL (70-110)
[2024-06-20] VITALS (21 sets, daily range): BP systolic 103–129; BP diastolic 60–79; PULSE 60–77; RESP 16–19; TEMP 34.8–36.9; O2SAT 18–95
[2024-06-20] MEDS: levalbuterol 0.63 mg/3 mL Neb INHALATION ×4 (02:27→19:40)
[2024-06-20] MEDS: ipratropium 0.5 mg/2.5 mL Neb INHALATION ×4 (02:27→19:40)
[2024-06-20 02:39] LABS: Glucose Point of Care 111 mg/dL (70-110)
[2024-06-20] MEDS: albumin 25 G/100 ML BAG 60 G IV ×3 (04:47→19:25)
[2024-06-20] MEDS: pantoprazole 40 mg SDV IVP ×2 (04:47→20:51)
[2024-06-20 05:10] LABS: Basophils % 0.1 %; Eosinophils % 0.1 %; Hematocrit 29.5 % (36-47); Lymphocytes # 0.7 10^3/uL (0.8-4.8); Lymphocytes % 9.2 %; Mean Corpuscular HGB Conc 31.9 g/dL (30-55); Mean Corpuscular Hemoglobin 27.2 pg (27-33); Mean Corpuscular Volume 85.5 fl (85-98); Mean Platelet Volume 9.2 fL (7.4-10.4); Monocytes # 0.4 10^3/uL (0.2-0.9); Monocytes % 5.1 %; Neutrophils # 6.53 10^3/uL (1.8-7.7); Neutrophils % 85.1 %; Nucleated Red Blood Cells # 0.2 /100WBC; Nucleated Red Blood Cells % 2.5 %; Platelet Count 72 10^3/cmm (157-399); Red Blood Count 3.45 10^6/uL (3.85-5.65); Red Cell Distribution Width 19.3 % (12.1-15.1); White Blood Count 7.68 10^3/uL (3.29-11.43)
[2024-06-20 05:22] LABS: INR 3.51 (0.8-1.2)
[2024-06-20 05:28] LABS: Ammonia 96 umol/L (11-51)
[2024-06-20 05:29] LABS: Alanine Aminotransferase 81 U/L (0-33); Alkaline Phosphatase 101 U/L (35-105); Anion Gap 20.7 (5-19); Aspartate Amino Transferase 104 U/L (0-32); Blood Urea Nitrogen 52 mg/dL (8-23); Calcium 10.3 mg/dL (8.5-10.5); Carbon Dioxide 27 mmol/L (22-29); Chloride 95 mmol/L (98-107); Creatinine Clr Calc Pharmacy 15.2032; Globulin 1.5 g/dL (1.3-4.6); Glucose 114 mg/dL (65-115); Osmolality Calculated 303 mOsm/kg (285-295); Potassium 3.7 mmol/L (3.5-5.1); Sodium 139 mmol/L (136-145); Total Bilirubin 3.3 mg/dL (0.15-1.2); Total Protein 6.5 g/dL (6.6-8.7)
[2024-06-20] MEDS: dextrose 10% 1,000 ML 50 ML IV (05:37)
[2024-06-20] MEDS: heparin 5,000 unit/mL INJ 1 mL 5000 UNIT SUBCUT ×2 (05:37→20:50)
[2024-06-20 06:18] LABS: Glucose Point of Care 114 mg/dL (70-110)
[2024-06-20 06:38] LABS: C.Diff PCR (Lab) NEGATIVE (Negative)
[2024-06-20] MEDS: budesonide 0.5 mg/2 mL Neb INHALATION ×2 (08:17→19:40)
[2024-06-20] MEDS: sennosides-docusate Tablet 1 TAB PO (08:38)
[2024-06-20] MEDS: lactulose oral liq 20 gm/30 mL UDC PO ×4 (08:38→21:11)
[2024-06-20] MEDS: midodrine 5 mg TABLET 10 MG PO ×3 (08:38→20:50)
[2024-06-20] MEDS: methylPREDNISolone sod succ 40 mg/mL INJ IVP ×2 (08:38→20:50)
[2024-06-20] MEDS: propafenone 150 mg Tablet PO ×3 (08:38→20:51)
[2024-06-20] MEDS: SODIUM CHLORIDE 0.9% IV ×2 (08:39→21:31)
[2024-06-20] MEDS: nystatin powder 15 gm Btl 1 APPLIC TOPICAL ×2 (08:39→23:23)
[2024-06-20] MEDS: AMPICILLIN IV ×2 (08:39→21:31)
--- NOTE | 2024-06-20 09:04 | PC.SLP ---
CARBONIZER visit attempted. Nursing stated to hold therapy today; not alert.
--- NOTE | 2024-06-20 09:06 | PC.SOCIAL ---
IMM Updated No questions voiced. Provided pt a copy. Initialed, dated, & timed copy in chart.
[2024-06-20 11:11] LABS: Glucose Point of Care 125 mg/dL (70-110)
--- NOTE | 2024-06-20 13:06 | P.PN_ITS ---
Subjective 2 Subjective: No acute vents overnight. Patient has remained hemodynamically stable and afebrile. Patient remains on BiPAP. Remains minimally responsive. Opening eyes only to physical stimulus. Not following directions or having meaningful movements. Vitals/I&O/Wt Last Vital Signs Temp 97.1 F L 06/20/24 11:18 Pulse 67 06/20/24 11:18 Resp 18 06/20/24 08:05 BP 116/69 06/20/24 11:18 Pulse Ox 95 06/20/24 11:18 O2 Del Method BiPAP 06/20/24 11:18 O2 Flow Rate 2.5 06/19/24 00:00 FiO2 28 06/20/24 10:55 06/19/24 06/20/24 06/20/24 22:59 06:59 14:59 Intake Total 750 / 1502.5 976.667 / 2479.167 150 / 150 Output Total 3100 / 3100 25 / 3125 Balance -2350 / -1597.5 951.667 / -645.833 150 / 150 Weight last 48 hrs Weight 129.727 kg Weight 130.2 kg Weight 133.719 kg Physical Exam 2 Narrative: General:Ill-appearing, awake and alert, following directions, HEENT: PERRLA, pupils bilaterally equal and reactive Chest: Bilateral bronchial breath sounds with decreased air entry all over lung leavitt, occasional rhonchi CVS: S1-S2 regular, pansystolic murmur at apex, no tachycardia, no gallops, no rubs Abdomen: Soft, nontender, no organomegaly, bowel sounds present Neuro: Moving all limbs, Extremity: Bilateral lower limb 3+ edema up to mid thigh, lymphedema, fluid blisters fluid-filled on right medial thigh, right ankle no open ulcers Resp: AUSCULTATION: crackles Cardio: COMMON NORMALS: regular rate, regular rhythm, S1 normal heart sound present and S2 normal heart sound present RATE: regular rate RHYTHM: r egular rhythm HEART SOUNDS: S1 normal heart sound present and S2 normal heart sound present GI: COMMON NORMALS: Normal to inspection, nondistended, normoactive bowel sounds present and non-tender Extremity: NARRATIVE EXTREMITY EXAM: 3+ pitting edema, anasarca, abdominal wa ll edema Neuro: NOBLE COMA SCALE: document GCS findings Hurt coma scale eye opening: To pressure Hurt coma scale verbal response: None Noble coma scale motor response: Abnormal flexion Hurt coma scale total score: 6 Urinary Catheter Management: García: Cath Placed During This Visit: yes Reason for Continuing Indwelling Catheter: Assist Healing of Perineal & Sacral Wounds- Incontinent Patients Urinary Catheter Date of Insertion: 06/08/24 Urinary Catheter Time of Insertion: 01:19 Data 06/20/24 04:41 06/20/24 04:41 A&P Assessment and plan (1) Metabolic encephalopathy: (2) BENJAMIN (acute kidney injury): (3) Hepatorenal syndrome with acute kidney injury: (4) Transaminitis: (5) CHF (congestive heart failure): Qualifiers: Heart failure type: combined systolic and diastolic Heart failure chronicity: acute Qualified Code(s): I50.41 - Acute combined systolic (congestive) and diastolic (congestive) heart failure (6) Lymphedema: (7) Hypercapnia: (8) S/P placement of cardiac pacemaker: (9) Varicose veins of bilateral lower extremities with pain: (10) Peripheral vascular disease: (11) Iron deficiency anemia: Qualifiers: Iron deficiency anemia type: other iron deficiency Qualified Code(s): D 50.8 - Other iron deficiency anemias (12) Peripheral edema: (13) Moderate mitral regurgitation: (14) Chronic atrial fibrillation: (15) Sick sinus syndrome: (16) Claudication: (17) Colon cancer: Qualifiers: Colon location: unspecified part of colon Qualified Code(s): C18.9 - Malignant neoplasm of colon, unspecified (18) Goals of care, counseling/discussion: Plan Metabolic encephalopathy: In setting of hypercapnia because of hypoglycemia and hepatic encephalopathy. Resolving. Monitor daily. CT head done earlier in the admission negative for acute normality. Hepatic Encephalopathy - Most likely in setting of hepatorenal syndrome. Patient does have worsening transaminitis with hyperbilirubinemia. Monitor daily ammonia levels. C/w Lactulose 20 mg 4 times daily through NG . Target bowel movements more than 3-4 daily. Monitor ammonia levels. Hepatitis panel negative. Concerns for hepatorenal syndrome. Lactulose as above. Increase midodrine to 10 mg 3 times daily. Continue with IV albumin every 8 hours. Acute Kidney Injury on Chronic Kidney Disease Most likely in setting of overdiuresis with intravascular volume depletion. Did have hypotensive episodes before. Nephrology on board. Medical reconciliation done for nephrotoxic drugs. Monitor renal functions daily. Strict input output charting, daily weights. IB bumex 4 mg one time. Minimal urine output with Lasix yesterday. X-ray from yesterday concerns for congestion. Repeat chest x-ray today. - BMP in afternoon. Enterococcus UTI - UA noted to be positive for Enterococcus Susceptible to ampicillin Continue with ampicillin to finish a 7-day course. Acute Diastolic Congestive Heart Failure Exacerbation Echocardiogram done earlier in the admission shows an EF of 35% with grade 3 diastolic dysfunction, moderate pulmonary hypertension with RVSP of 38 mmHg, moderate MR. IV diuresis as above. Strict input charting, daily weights. Hypercapnia: Most likely in setting of poor mentation. Currently on BiPAP. Repeat ABG shows improvement. BiPAP nightly as needed Continue to monitor. Patient does have baseline COPD. Wean Solu-Medrol 40 mg IV every 12 hourly along with Pulmicort twice daily and ipratropium, Xopenex every 6 hourly. Hypoglycemia: Most likely in setting of worsening transaminitis. Solu-Medrol as above will help. Appreciate normal cortisol level. Hypoglycemia protocol. Chronic Lymphedema - The patient has significant fluid overload with Anasarca and lower extremity edema complicated by blister formation, likely secondary to edema along with venous stasis. - Likely due to Venous stasis due to immobility and heart failure. Hold off on lymphedema wraps because of blisters at the dorsum of the foot Atrial Fibrillation/Sick Sinus Syndrome Status Post Pacemaker - The patient has a history of atrial fibrillation, sick sinus syndrome, and pacemaker placement. Currently off anticoagulation due to prior gastrointestinal bleeding. Plan: 1. Her cardizem, metoprolol are currently on hold. Continue with home dose of propafenone. Plan for the day: Continue BiPAP ventilation. Underwent 1 session of dialysis yesterday. Repeat dialysis today. Monitor blood pressures. Continue with beta-robert for now. Continue with current dose of Solu-Medrol. Hold off on IV fluids. Monitor blood sugars. Hypoglycemia protocol. Continue with lactulose at current dose. Rectal tube in place. C. difficile negative. Monitor blood pressures. Continue with midodrine 10 mg 3 times daily. Goals of care discussion: Discussed in detail with patient's at bedside along with daughter Mr. Cho over the phone. We discussed the etiology of patient's poor mentation along with transaminitis, acute kidney injury with concerns for lymphedema. Discussed possibility of treatment with NG tube placement with lactulose to monitor mentation with possible improvement in ammonia levels in next 48 to 72 hours versus hospice care. Patient's son is on a cruise right now and they want to continue with current treatment plan. Discussed about CODE STATUS. Daughters will discuss further with her father and make decisions accordingly. Full code for now. 06/19: Had further goals of care discussion with at bedside. is DPOA. Discussed about further deterioration and no improvement in last 24 to 48 hours. Discussed about patient being anuric even after high-dose diuresis over last 48 hours. Discussed about poor mentation again. states he is okay with a trial of hemodialysis. If hemodialysis does not help in next 24 to 48 hours would like to discuss further about goals of care at that time. Discussed about CODE STATUS. He states he discussed in detail with patient's daughter. Would not want any kind of chest compressions or mechanical ventilation if it comes to it. Wants to CODE STATUS to be changed. CODE STATUS changed to DNR/DNI. 06/20: Had further goals of care discussion with the . Discussed unfortunately patient is not improving both with her mentation and her lab work continues to shows persistent acute kidney injury. Slight improvement in AST/ALT. wants to continue giving a trial of dialysis for next couple of days before making a decision though he understands there is a high chance she would not improve. He understands that even of improvement is a high chance of patient not going back to her baseline quality of life. He is waiting for his daughter to come back in the afternoon or late in the evening today to make further goals of care discussion. We discussed the possibility of inpatient hospice. He is agreeable but wants to wait till he can have a conversation with his daughter. DVT prophylaxis: Heparin 5000 units Q[facility] PDMP PDMP Reviewed: Not Reviewed Attestations 2 Medical Necessity Statement*: Requires further hospitalization for further management of altered mental status, BENJAMIN, hepatorenal syndrome, BiPAP dependent, currently getting temporary dialysis while further goals of care discussions were done Diagnoses Metabolic encephalopathy G93.41 BENJAMIN (acute kidney injury) N17.9 Hepatorenal syndrome with acute kidney injury K76.7; N17.9 Transaminitis R74.01 Diastolic congestive heart failure, unspecified HF chronicity I50.41 Heart failure type: combined systolic and diastolic Heart failure chronicity: acute Lymphedema I89.0 Hypercapnia R06.89 S/P placement of cardiac pacemaker Z95.0 Varicose veins of bilateral lower extremities with pain I83.813 Peripheral vascular disease I73.9 Other iron deficiency anemia D50.8 Iron deficiency anemia type: other iron deficiency Peripheral edema R60.0 Moderate mitral regurgitation I34.0 Chronic atrial fibrillation I48.20 Sick sinus syndrome I49.5 Claudication I73.9 Malignant neoplasm of colon, unspecified part of colon C18.9 Colon location: unspecified part of colon Goals of care, counseling/discussion Z71.89
--- NOTE | 2024-06-20 13:40 | PM.PN ---
Subjective Subjective: s/p HD yesterday Medications: Reviewed: Yes Vitals/I&O/Wt Last Vital Signs Temp 97.1 F L 06/20/24 11:18 Pulse 66 06/20/24 13:36 Resp 18 06/20/24 13:36 BP 116/69 06/20/24 11:18 Pulse Ox 94 06/20/24 13:36 O2 Del Method BiPAP 06/20/24 13:36 O2 Flow Rate 2.5 06/19/24 00:00 FiO2 28 06/20/24 13:36 06/19/24 06/20/24 06/20/24 22:59 06:59 14:59 Intake Total 750 / 1502.5 976.667 / 2479.167 150 / 150 Output Total 3100 / 3100 25 / 3125 Balance -2350 / -1597.5 951.667 / -645.833 150 / 150 Weight last 48 hrs Weight 129.727 kg Weight 130.2 kg Weight 133.719 kg Physical Exam Narrative: elderly lady in bed, VS noted heent- nc/at, eomi, anicteroc neck supple lungs dull bases b/l heart-regular, paced rhythm, +s1, s2 abd soft, + bs ext + b/l lymphedema Urinary Catheter Management: García: Cath Placed During This Visit: yes Reason for Continuing Indwelling Catheter: Assist Healing of Perineal & Sacral Wounds- Incontinent Patients Urinary Catheter Date of Insertion: 06/08/24 Urinary Catheter Time of Insertion: 01:19 Data 06/21/24 04:50 06/21/24 04:50 A&P Assessment and plan (1) BENJAMIN (acute kidney injury): 83 year old female with history of colon cancer status post hemicolectomy, sick sinus syndrome and a fib status post pacemaker, not on anticoagulation secondary to GI bleed, diastolic CHF- HFpEF, severly elevated filling pressures, moderate pulm htn, moderate MR. Pt presented on 06/07/24 with leg swelling and blistering, inability to walk and generalized weakness. 3 weeks prior to admission she was started on Bumex. Patient was admitted and started on diuretics- Her baseline cr is 0.8- 1 mg/dl. by may on admission her cr chuck to 1.6 mg/dl- 1. BENJAMIN- Creatinine is up to 3.8mg/dl, anuric, has pulmonary edema and on BiPAP - Urine analysis showed 1+ protein and 3+ blood +RBCs . -await nima, anca anti gbm normal complements Will check urine protein to creatinine ratio, urine sodium is 12 indicating intravascular volume depletion likely from diuresis CPK normal - Has elevated Free light chains with increased K/L ratio , No M spike -Hematology eval as out pt -Patient volume overloaded with no response to diuretics, s/p temporary HD catheter placement and started dialysis, , patient consented for HD - HD # 2 today 2. anemia and BENJAMIN - Has elevated Free light chains, needs Hematology eval ferritin 56 % sat 4.8- is iron deficient 3. HFpEF- grade III/ IV diastolic dysfunction, RVSP elevated at 38, and moderate MR -Amyloidosis could cause LVH with restrictive pattern and BENJAMIN- review with cardiology -no brionna-i, arb, aldactone, SGLT2-i w/ BENJAMIN 4. ammonia 140 - improved with medical therapy - liver eval as per medical team. -continue therapy until ammonia normalizes 5. bp on low side can give midodrine seen and examined w/ RN using A/V equipment 6. hypercapneic resp acidosis Plan see above PDMP PDMP Reviewed: Not Reviewed Attestations Medical Necessity Statement*: per medicine Coding Level of Care Code Acute Code for [facility] Fwd Diagnoses BENJAMIN (acute kidney injury) N17.9
[2024-06-20] MEDS: albumin 12.5 GM/50 ML VIAL IV (16:08)
--- NOTE | 2024-06-20 16:23 | PC.HD ---
[id number] units loading dose administered via HD catheter at 1558 per timber management specialist's orders.
[2024-06-20 18:28] LABS: Glucose Point of Care 92 mg/dL (70-110)
--- NOTE | 2024-06-20 19:57 | PC.NURSE ---
Conversation with and daughter with Liliam Neil LPN. Family states that they are ready to let Yadira go on Hospice, but would like to begin comfort/Hospice care when Edson (son) returns from vacation on Sunday.
[2024-06-21] VITALS (14 sets, daily range): BP systolic 108–133; BP diastolic 55–71; PULSE 60–108; RESP 14–20; TEMP 36.3–38; O2SAT 93–96; BMI 23.6
[2024-06-21 02:21] LABS: Glucose Point of Care 83 mg/dL (70-110)
[2024-06-21] MEDS: ipratropium 0.5 mg/2.5 mL Neb INHALATION ×3 (02:59→14:33)
[2024-06-21] MEDS: levalbuterol 0.63 mg/3 mL Neb INHALATION ×2 (02:59→08:13)
[2024-06-21 03:04] LABS: Glucose Point of Care 87 mg/dL (70-110)
[2024-06-21] MEDS: albumin 25 G/100 ML BAG 60 G IV ×2 (03:36→11:35)
[2024-06-21] MEDS: pantoprazole 40 mg SDV IVP (05:55)
[2024-06-21 06:04] LABS: Hematocrit 28.5 % (36-47); Lymphocytes # 0.7 10^3/uL (0.8-4.8); Lymphocytes % 9.2 %; Mean Corpuscular HGB Conc 31.9 g/dL (30-55); Mean Corpuscular Hemoglobin 27.1 pg (27-33); Mean Corpuscular Volume 84.8 fl (85-98); Mean Platelet Volume 10.8 fL (7.4-10.4); Monocytes # 0.5 10^3/uL (0.2-0.9); Monocytes % 6.2 %; Neutrophils # 6.68 10^3/uL (1.8-7.7); Neutrophils % 84.1 %; Nucleated Red Blood Cells # 0.3 /100WBC; Nucleated Red Blood Cells % 3.1 %; Platelet Count 57 10^3/cmm (157-399); Red Blood Count 3.36 10^6/uL (3.85-5.65); Red Cell Distribution Width 19.2 % (12.1-15.1); White Blood Count 7.94 10^3/uL (3.29-11.43)
[2024-06-21 06:30] LABS: Glucose Point of Care 102 mg/dL (70-110)
[2024-06-21 06:30] LABS: Glucose Point of Care 173 mg/dL (70-110)
[2024-06-21 06:36] LABS: Alanine Aminotransferase 81 U/L (0-33); Albumin Level 5.3 g/dL (3.5-5.2); Alkaline Phosphatase 125 U/L (35-105); Anion Gap 22.8 (5-19); Aspartate Amino Transferase 136 U/L (0-32); Blood Urea Nitrogen 44 mg/dL (8-23); Calcium 10.2 mg/dL (8.5-10.5); Carbon Dioxide 24 mmol/L (22-29); Chloride 97 mmol/L (98-107); Globulin 1.3 g/dL (1.3-4.6); Glucose 74 mg/dL (65-115); Osmolality Calculated 300 mOsm/kg (285-295); Potassium 3.8 mmol/L (3.5-5.1); Sodium 140 mmol/L (136-145); Total Bilirubin 3.9 mg/dL (0.15-1.2); Total Protein 6.6 g/dL (6.6-8.7)
[2024-06-21 06:39] LABS: Creatinine Clr Calc Pharmacy 11.1985
[2024-06-21] MEDS: budesonide 0.5 mg/2 mL Neb INHALATION (08:12)
[2024-06-21] MEDS: propafenone 150 mg Tablet PO (11:10)
[2024-06-21] MEDS: heparin 5,000 unit/mL INJ 1 mL 5000 UNIT SUBCUT (11:10)
[2024-06-21] MEDS: midodrine 5 mg TABLET 10 MG PO (11:10)
[2024-06-21] MEDS: lactulose oral liq 20 gm/30 mL UDC PO (11:11)
[2024-06-21] MEDS: methylPREDNISolone sod succ 40 mg/mL INJ IVP (11:11)
[2024-06-21] MEDS: sennosides-docusate Tablet 1 TAB PO (11:11)
[2024-06-21] MEDS: nystatin powder 15 gm Btl 1 APPLIC TOPICAL ×2 (11:11→18:28)
[2024-06-21] MEDS: SODIUM CHLORIDE 0.9% IV (11:29)
[2024-06-21] MEDS: AMPICILLIN IV (11:29)
[2024-06-21 11:51] LABS: Glucose Point of Care 71 mg/dL (70-110)
--- NOTE | 2024-06-21 12:27 | PC.NURSE ---
Called [facility] to have them come evaluate patient for inpatient hospice.
[2024-06-21 14:33] LABS: Glucose Point of Care 72 mg/dL (70-110)
[2024-06-21] MEDS: albuterol 2.5 mg/3 mL Neb INHALATION (14:33)
--- NOTE | 2024-06-21 15:32 | PM.PN ---
Subjective Subjective: No acute events overnight. Seen with multiple family members including and daughter at bedside. Patient underwent second session of dialysis yesterday. Has remained hemodynamically stable and afebrile. No improvement in mentation. Vitals/I&O/Wt Last Vital Signs Temp 99.2 F 06/21/24 15:30 Pulse 61 06/21/24 15:30 Resp 16 06/21/24 15:30 BP 124/55 06/21/24 15:30 Pulse Ox 94 06/21/24 15:30 O2 Del Method BiPAP 06/21/24 15:30 O2 Flow Rate 2.5 06/19/24 00:00 FiO2 28 06/21/24 14:36 06/21/24 06/21/24 06/21/24 06:59 14:59 22:59 Intake Total 100 / 1100 550 / 550 Output Total 400 / 3450 Balance -300 / -2350 550 / 550 Weight last 48 hrs Weight 58.513 kg Weight 128.2 kg Weight 129.727 kg Weight 130.2 kg Physical Exam Narrative: General:Ill-appearing, awake and alert, following directions, HEENT: PERRLA, pupils bilaterally equal and reactive Chest: Bilateral bronchial breath sounds with decreased air entry all over lung le[place], occasional rhonchi CVS: S1-S2 regular, pansystolic murmur at apex, no tachycardia, no gallops, no rubs Abdomen: Soft, nontender, no organomegaly, bowel sounds present Neuro: Moving all limbs, Extremity: Bilateral lower limb 3+ edema up to mid thigh, lymphedema, fluid blisters fluid-filled on right medial thigh, right ankle no open ulcers Resp: COMMON NORMALS: negative for normal respiratory effort AUSCULTATION: crackles Cardio: COMMON NORMALS: regular rate, regular rhythm, S1 normal heart sound present and S2 normal heart sound present RATE: regular rate RHYTHM: regular rhythm HEART SOUNDS: S1 normal heart sound present and S2 normal heart sound present GI: COMMON NORMALS: Normal to inspection, nondistended, normoactive bowel sounds present Extremity: NARRATIVE EXTREMITY EXAM: 3+ pitting edema, anasarca, abdominal wall edema Neuro: NOBLE COMA SCALE: document GCS findings Noble coma scale eye opening: To pressure Noble coma scale verbal response: None [place] coma scale motor response: Abnormal flexion Noble coma scale total score: 6 Urinary Catheter Management: García: Cath Placed During This Visit: yes Reason for Continuing Indwelling Catheter: Accurate Measurement of Urinary Output in Critically Ill Patients Urinary Catheter Date of Insertion: 06/08/24 Urinary Catheter Time of Insertion: 01:19 Data 06/21/24 04:50 06/21/24 04:50 A&P Assessment and plan (1) Metabolic encephalopathy: (2) BENJAMIN (acute kidney injury): (3) Hepatorenal syndrome with acute kidney injury: (4) Transaminitis: (5) CHF (congestive heart failure): Qualifiers: Heart failure type: combined systolic and diastolic Heart failure chronicity: acute Qualified Code(s): I50.41 - Acute combined systolic (congestive) and diastolic (congestive) heart failure (6) Lymphedema: (7) Hypercapnia: (8) S/P placement of cardiac pacemaker: (9) Varicose veins of bilateral lower extremities with pain: (10) Peripheral vascular disease: (11) Iron deficiency anemia: Qualifiers: Iron deficiency anemia type: other iron deficiency Qualified Code(s): D50.8 - Other iron deficiency anemias (12) Peripheral edema: (13) Moderate mitral regurgitation: (14) Chronic atrial fibrillation: (15) Sick sinus syndrome: (16) Claudication: (17) Colon cancer: Qualifiers: Colon location: unspecified part of colon Qualified Code(s): C18.9 - Malignant neoplasm of colon, unspecified (18) Goals of care, counseling/discussion: Plan Metabolic encephalopathy: In setting of hypercapnia because of hypoglycemia and hepatic encephalopathy. Resolving. Monitor daily. CT head done earlier in the admission negative for acute normality. Hepatic Encephalopathy - Most likely in setting of hepatorenal syndrome. Patient does have worsening transaminitis with hyperbilirubinemia. Monitor daily ammonia levels. C/w Lactulose 20 mg 4 times daily through NG . Target bowel movements more than 3-4 daily. Monitor ammonia levels. Hepatitis panel negative. Concerns for hepatorenal syndrome. Lactulose as above. Increase midodrine to 10 mg 3 times daily. Continue with IV albumin every 8 hours. Acute Kidney Injury on Chronic Kidney Disease Most likely in setting of overdiuresis with intravascular volume depletion. Did have hypotensive episodes before. Nephrology on board. Medical reconciliation done for nephrotoxic drugs. Monitor renal functions daily. Strict input output charting, daily weights. IB bumex 4 mg one time. Minimal urine output with Lasix yesterday. X-ray from yesterday concerns for congestion. Repeat chest x-ray today. - BMP in afternoon. Enterococcus UTI - UA noted to be positive for Enterococcus Susceptible to ampicillin Continue with ampicillin to finish a 7-day course. Acute Diastolic Congestive Heart Failure Exacerbation Echocardiogram done earlier in the admission shows an EF of 35% with grade 3 diastolic dysfunction, moderate pulmonary hypertension with RVSP of 38 mmHg, moderate MR. IV diuresis as above. Strict input charting, daily weights. Hypercapnia: Most likely in setting of poor mentation. Currently on BiPAP. Repeat ABG shows improvement. BiPAP nightly as needed Continue to monitor. Patient does have baseline COPD. Wean Solu-Medrol 40 mg IV every 12 hourly along with Pulmicort twice daily and ipratropium, Xopenex every 6 hourly. Hypoglycemia: Most likely in setting of worsening transaminitis. Solu-Medrol as above will help. Appreciate normal cortisol level. Hypoglycemia protocol. Chronic Lymphedema - The patient has significant fluid overload with Anasarca and lower extremity edema complicated by blister formation, likely secondary to edema along with venous stasis. - Likely due to Venous stasis due to immobility and heart failure. Hold off on lymphedema wraps because of blisters at the dorsum of the foot Atrial Fibrillation/Sick Sinus Syndrome Status Post Pacemaker - The patient has a history of atrial fibrillation, sick sinus syndrome, and pacemaker placement. Currently off anticoagulation due to prior gastrointestinal bleeding. Plan: 1. Her cardizem, metoprolol are currently on hold. Continue with home dose of propafenone. Goals of care discussion: Discussed in detail with patient's at bedside along with daughter Mr. Cho over the phone. We discussed the etiology of patient's poor mentation along with transaminitis, acute kidney injury with concerns for lymphedema. Discussed possibility of treatment with NG tube placement with lactulose to monitor mentation with possible improvement in ammonia levels in next 48 to 72 hours versus hospice care. Patient's son is on a cruise right now and they want to continue with current treatment plan. Discussed about CODE STATUS. Daughters will discuss further with her father and make decisions accordingly. Full code for now. 06/19: Had further goals of care discussion with at bedside. is DPOA. Discussed about further deterioration and no improvement in last 24 to 48 hours. Discussed about patient being anuric even after high-dose diuresis over last 48 hours. Discussed about poor mentation again. states he is okay with a trial of hemodialysis. If hemodialysis does not help in next 24 to 48 hours would like to discuss further about goals of care at that time. Discussed about CODE STATUS. He states he discussed in detail with patient's daughter. Would not want any kind of chest compressions or mechanical ventilation if it comes to it. Wants to CODE STATUS to be changed. CODE STATUS changed to DNR/DNI. 06/20: Had further goals of care discussion with the . Discussed unfortunately patient is not improving both with her mentation and her lab work continues to shows persistent acute kidney injury. Slight improvement in AST/ALT. wants to continue giving a trial of dialysis for next couple of days before making a decision though he understands there is a high chance she would not improve. He understands that even of improvement is a high chance of patient not going back to her baseline quality of life. He is waiting for his daughter to come back in the afternoon or late in the evening today to make further goals of care discussion. We discussed the possibility of inpatient hospice. He is agreeable but wants to wait till he can have a conversation with his daughter. DVT prophylaxis: Heparin 5000 units Q12 Plan for the day: 06/21: Had further goals of care discussion done in detail with patient's daughter and at bedside. We discussed patient has had 2 sessions of dialysis without any improvement in her blood work and mentation unfortunately. Patient remains somnolent on BiPAP without much response. Daughter verbalizes understanding. Both her daughter and wants to go ahead and set up with hospice for now. Will try for inpatient hospice. Daughter requests that her is coming back from cruise later in the day today and wants to try to hold off till then as possible. She is agreeable to start hospice for now. Plan: Will start on comfort care measures. DNR/DNI. Hospice referral sent. Continue with BiPAP ventilation for now. Transition to nasal cannula for comfort once patient's son is at bedside. Hold off on IV antibiotics. Hold off on dialysis. Any further blood work. Hold off on IV steroids, lactulose. Vitals as per protocol. Pain medications anxiety medication as needed. PDMP PDMP Reviewed: Not Reviewed Attestations Medical Necessity Statement*: Requires further hospitalization for management of altered mental status in setting of hepatorenal syndrome, BENJAMIN in a patient admitted originally for lymphedema hospice is set up. Diagnoses Metabolic encephalopathy G93.41 BENJAMIN (acute kidney injury) N17.9 Hepatorenal syndrome with acute kidney injury K76.7; N17.9 Transaminitis R74.01 Diastolic congestive heart failure, unspecified HF chronicity I50.41 Heart failure type: combined systolic and diastolic Heart failure chronicity: acute Lymphedema I89.0 Hypercapnia R06.89 S/P placement of cardiac pacemaker Z95.0 Varicose veins of bilateral lower extremities with pain I83.813 Peripheral vascular disease I73.9 Other iron deficiency anemia D50.8 Iron deficiency anemia type: other iron deficiency Peripheral edema R60.0 Moderate mitral regurgitation I34.0 Chronic atrial fibrillation I48.20 Sick sinus syndrome I49.5 Claudication I73.9 Malignant neoplasm of colon, unspecified part of colon C18.9 Colon location: unspecified part of colon Goals of care, counseling/discussion Z71.89
[2024-06-21] MEDS: LORazepam 2 mg/mL INJ 1 mL IVP (20:07)
[2024-06-22 00:10] VITALS: PULSE 60; RESP 17; O2SAT 95
[2024-06-22] MEDS: LORazepam 2 mg/mL INJ 1 mL IVP ×2 (00:48→20:36)
--- NOTE | 2024-06-22 00:56 | PC.NURSE ---
UPDATE: all of family at [facility]. Family requesting bi-pap to stay on a little longer in order to voice goodbyes to patient; family has voiced to this nurse that they will alert when ready to remove patient from bipap.
--- NOTE | 2024-06-22 01:52 | PC.NURSE ---
Family left at 0140; family states that their wishes are for patient to remain on bipap until they return in the morning. Family voices understanding that bipap is not typically used with comfort measures and can sustain/prolong life; family is agreeable to removing bipap in the morning when they return.
[2024-06-22 04:10] VITALS: PULSE 74; RESP 23; O2SAT 97
[2024-06-22 07:15] VITALS: PULSE 75; RESP 20; O2SAT 95
[2024-06-22 07:44] VITALS: PULSE 76; RESP 20; O2SAT 95
--- NOTE | 2024-06-22 09:00 | PC.NURSE ---
Patient's now present at bedside. Patient is still on bipap. Patient's voiced, I wish they just would have let me take that mask off her last night, but my son, Edson, isn't handling it well. This nurse asked the patient's if the rest of the family would be back this morning. The stated, Yes, I'm sure they will be here sometime this morning, but Edson went back home to [place] to get some sleep. At approximately 1000, Dr. Monique called and asked if the patient was still on bipap. This nurse informed him that she was due to the family not wanting to remove it. Dr. Monique stated the bipap mask needed to be removed now and transitioned to comfort measures immediately. This nurse informed the that the patient needed to go on comfort measures per the doctor and would be placed on a low oxygen nasal cannula. This nurse stated the may want to call the family and notify them they may want to come. The was agreeable to placing her on the nasal cannula. Oral care was performed.
--- NOTE | 2024-06-22 11:15 | P.DS_ITS ---
Discharge Providers Date of Admission: 06/08/24 12:56 Date of Discharge: June 22, 2024 Attending Provider at Admission: Margo Arizmendi MD Attending Provider at Discharge: Chandler Monique MD Primary Care Provider: Princess Grande MD Diagnoses at Discharge Discharge Diagnosis (1) BENJAMIN (acute kidney injury): Status: Acute Reason for Visit Reason for Visit: WEAKNESS Brief History: History as per HPI: Yadira Krishnan is a 83 year old female with history of colon cancer status post hemicolectomy, sick sinus syndrome status post pacemaker, A-fib not on anticoagulation secondary to GI bleed, diastolic CHF presented with worsening of swelling inability to walk and generalized weakness. not able to take care of her anymore, patient is wheelchair-bound. No recent fever diarrhea nausea vomiting or chest pain. Patient 3 weeks ago was switched to Bumex however she has not made good amount of urine as per the . In the ER lab work consistent with chronic anemia, CHF exacerbation, x-ray consistent with pulm edema she is on room air hemodynamically stable. Heart rate is around 60, patient is endorsing taking metoprolol, Cardizem and propafenone Hospital Course Hospital Course Patient was admitted to the hospital for further evaluation and management of lower limb swelling with concerns for acute kidney injury. She was started on aggressive IV diuresis. Echocardiogram was done which showed a normal EF with grade 2 diastolic dysfunction, moderate pulmonary hypertension with RVSP of 38 mmHg. During hospitalization she remained hemodynamically stable and afebrile. Her renal functions remained stable at around 1.6 over 3 days. It is believed her lower limb swelling is most likely in setting of lymphedema due to her being wheelchair-bound and patient is intravascularly euvolemic. Lower limb Dopplers have been ordered. Patient would benefit with lymphedema wraps going forward along with oral diuresis and lifestyle modification as per congestive heart failure. Fluid restriction and low-salt diet. While patient was waiting for a bed to be transferred over to SNF she developed acute kidney injury due to overdiuresis. Eventually patient went into hepatorenal syndrome with worsening of transaminitis. Patient's hospitalization was further complicated by her developing altered mental status and somnolence. Due to somnolence patient developed hypercapnia which was managed by BiPAP ventilation. She was started on lactulose for hyperammonemia. Patient's mentation remained poor. Given persistent acute kidney injury with patient yaima benjamin anuria trial of hemodialysis was done. She underwent 2 sessions of hemodialysis without much improvement. Multiple goals of care discussions were done with patient's spouse and daughter both on phone at bedside. We discussed unfortunately patient remains somnolent even after maximum treatment for hyperammonemia, worsening renal functions, hepatorenal syndrome. We discussed unfortunately there is a high risk of patient not doing too well and even if she improves, it is highly possible that she would not be back to her baseline quality of life. Patient's family relates understanding and transition patient to hospice/comfort care on 06/21. She has been discharged for inpatient hospice for further evaluation and management after goals of care. Physical Exam Narrative: General:Ill-appearing, awake and alert, following directions, HEENT: PERRLA, pupils bilaterally equal and reactive Chest: Bilateral bronchial breath sounds with decreased air entry all over lung le[place], occasional rhonchi CVS: S1-S2 regular, pansystolic murmur at apex, no tachycardia, no gallops, no rubs Abdomen: Soft, nontender, no organomegaly, bowel sounds present Neuro: Moving all limbs, Extremity: Bilateral lower limb 3+ edema up to mid thigh, lymphedema, fluid blisters fluid-filled on right medial thigh, right ankle no open ulcers Neuro: RADHA COMA SCALE: document GCS findings Radha coma scale eye opening: To pressure Radha coma scale verbal response: None [place] coma scale motor response: Abnormal flexion Radha coma scale total score: 6 Urinary Catheter Management: García: Cath Placed During This Visit: yes Reason for Continuing Indwelling Catheter: Accurate Measurement of Urinary Output in Critically Ill Patients Urinary Catheter Date of Insertion: 06/08/24 Urinary Catheter Time of Insertion: 01:19 Discharge Data Studies Completed and Pending Completed Studies During Hospitalization Category Date Time Status CT head wo con* [id number] Routine Cat Scan 06/12/24 16:15 Completed CXRP [XR chest 1V portable [id number]] Routine Exams 06/15/24 12:33 Completed CXRP [XR chest 1V portable [id number]] Routine Exams 06/17/24 13:51 Completed CXRP [XR chest 1V portable [id number]] Stat Exams 06/19/24 02:51 Completed XR chest 1V [id number] Routine Exams 06/12/24 11:18 Completed XR chest 1V portable [id number] Stat Exams 06/19/24 16:30 Completed XR chest 2V* [id number] Stat Exams 06/07/24 21:49 [place] [id number] Routine Ultrasound 06/09/24 11:06 Completed CV. echo complete* [id number] Routine Ultrasound 06/08/24 00:03 [place] liver 51289 Routine Ultrasound 06/14/24 14:19 Completed US renal BI* [id number] Routine Ultrasound 06/08/24 09:15 Completed US venous duplex upper extremity RT [CV venous duplex Ultrasound 06/19/24 02:[place] [id number]] Stat Pending at discharge Category Date Time Status Blood Culture Stat Lab 06/17/24 10:30 Results Vitamin D 1,25 Dihydroxy Routine Lab 06/12/24 15:05 Received Radiology Impressions Renal Ultrasound 06/08/24 09:15 IMPRESSION: 1. No hydronephrosis or renal calculus. 2. There is a García catheter in the bladder. The bladder is decompressed. Head CT 06/12/24 16:15 IMPRESSION: No acute intracranial abnormality. Liver Ultrasound 06/14/24 14:19 IMPRESSION: 1. Portal vein demonstrates pulsatile portal venous flow. 2. Questionable pleural effusion. Chest X-Ray 06/19/24 16:30 IMPRESSION: 1. There is a right IJ approach central venous catheter positioned with its tip near the upper cavoatrial junction. 2. There has a right-sided PICC positioned with its tip near the upper cavoatrial junction. 3. There is an NG tube which tracks towards the stomach and off the field of view. 4. Small bilateral pleural effusions and opacities in the left lung base with silhouetting of the left hemidiaphragm. Laboratory Results WBC 7.94 10^3/uL (3.29-11.43) 06/21/24 04:50 RBC 3.36 10^6/uL (3.85-5.65) L 06/21/24 04:50 Hgb 9.10 g/dL (11.27-16.99) L 06/21/24 04:50 Hct 28.5 % (36-47) L 06/21/24 04:50 MCV 84.8 fl (85-98) L 06/21/24 04:50 MCH 27.1 pg (27-33) 06/21/24 04:50 MCHC 31.9 g/dL (30-55) 06/21/24 04:50 RDW 19.2 % (12.1-15.1) H 06/21/24 04:50 Plt Count 57 10^3/cmm (157-399) L 06/21/24 04:50 MPV 10.8 fL (7.4-10.4) H 06/21/24 04:50 Neut % (Auto) 84.1 % 06/21/24 04:50 Lymph % (Auto) 9.2 % 06/21/24 04:50 [place] % (Auto) 6.2 % 06/21/24 04:50 Eos % (Auto) 0.0 % 06/21/24 04:50 Baso % (Auto) 0.0 % 06/21/24 04:50 Neut # (Auto) 6.68 10^3/uL (1.8-7.7) 06/21/24 04:50 Lymph # (Auto) 0.7 10^3/uL (0.8-4.8) L 06/21/24 04:50 [place] # (Auto) 0.5 10^3/uL (0.2-0.9) 06/21/24 04:50 Eos # (Auto) 0.0 10^3/uL (0.0-0.8) 06/21/24 04:50 Baso # (Auto) 0.0 10^3/uL (0.0-0.1) 06/21/24 04:50 Nucleated RBC % (auto) 3.1 % 06/21/24 04:50 Nucleated RBCs # 0.3 /100WBC 06/21/24 04:50 PT 37.10 SECONDS (12.1-14.9) H 06/20/24 04:41 INR 3.51 (0.8-1.2) H 06/20/24 04:41 Specimen Type Arterial 06/19/24 08:16 Sample Site Radial, left 06/19/24 08:16 ABG pH 7.35 (7.35-7.45) 06/19/24 08:16 ABG pCO2 51.8 mmHg (35-45) H 06/19/24 08:16 ABG pO2 76.0 mmHg (80.0-100.0) L 06/19/24 08:16 ABG PO2/FiO2 Ratio 271 06/19/24 08:16 ABG HCO3 28.4 mmol/L (22-26) H 06/19/24 08:16 ABG O2 Saturation 95.2 06/19/24 08:16 ABG Base Excess 2.1 mmol/L (-2.0-2.0) H 06/19/24 08:16 Rodney Test Pos 06/19/24 08:16 A-a O2 Gradient 8.3 mmHg (5-10) 06/19/24 08:16 Hematocrit 30.7 % (37-47) L 06/19/24 08:16 Hgb O2 Saturation 93.2 % (95-100) L 06/19/24 08:16 Carboxyhemoglobin 1.2 %THgb (0.4-20.1) 06/19/24 08:16 Methemoglobin 1.0 % (0.4-1.5) 06/19/24 08:16 Total Hemoglobin 10.0 g/dL (12-16) L 06/19/24 08:16 Sodium 139.0 mmol/L (131-143) 06/19/24 08:16 Potassium 3.5 mmol/L (3.5-5.0) 06/19/24 08:16 Glucose 112.0 mg/dL (70-115) 06/19/24 08:16 Ionized Calcium 1.3 mmol/L (1.1-1.4) 06/19/24 08:16 O2 Delivery Device Bipap 06/19/24 08:16 O2 Liters/Min 2.0 % 06/16/24 21:02 FiO2 28.0 % 06/19/24 08:16 Tidal Volume 0.45 06/17/24 15:10 PEEP 8.0 cmH20 06/19/24 08:16 Claim Benefit Specialist ID [email or web address] 06/19/24 08:16 Sodium 140 mmol/L (136-145) 06/21/24 04:50 Potassium 3.8 mmol/L (3.5-5.1) 06/21/24 04:50 Chloride 97 mmol/L (98-107) L 06/21/24 04:50 Carbon Dioxide 24 mmol/L (22-29) 06/21/24 04:50 Anion Gap 22.8 (5-19) H 06/21/24 04:50 BUN 44 mg/dL (8-23) H 06/21/24 04:50 Creatinine 3.1 mg/dL (0.5-0.9) H 06/21/24 04:50 GFR Calculation Not Reportable 06/21/24 04:50 Glucose 74 mg/dL (65-115) 06/21/24 04:50 POC Glucose 72 mg/dL (70-110) 06/21/24 14:29 Estimat Average Glucose 120 06/07/24 21:54 Hemoglobin A1c 5.8 % (4.0-6.0) 06/07/24 21:54 Calculated Osmolality 300 mOsm/kg (285-295) H 06/21/24 04:50 Uric Acid 12.6 mg/dL (2.4-5.7) H 06/12/24 15:05 Calcium 10.2 mg/dL (8.5-10.5) 06/21/24 04:50 Phosphorus 4.8 mg/dL (2.5-4.5) H 06/19/24 05:04 Magnesium 2.0 mg/dL (1.7-2.3) 06/19/24 05:04 Iron 17 ug/dL (37-145) L 06/13/24 04:12 TIBC 354 mcg/dl 06/13/24 04:12 % Saturation 4.8 % (20-50) L 06/13/24 04:12 Unsat Iron Binding 337 ug/dL (112-347) 06/13/24 04:12 Ferritin 56 ng/mL (15-150) 06/13/24 04:12 Total Bilirubin 3.9 mg/dL (0.15-1.2) H 06/21/24 04:50 AST 136 U/L (0-32) H 06/21/24 04:50 ALT 81 U/L (0-33) H 06/21/24 04:50 Alkaline Phosphatase 125 U/L (35-105) H 06/21/24 04:50 Ammonia 96 umol/L (11-51) H 06/20/24 04:41 Creatine Kinase 56 U/L (26-192) 06/12/24 15:05 Troponin T Baseline 54 ng/L (0-10) H 06/07/24 21:54 Troponin T 120 Minute 53.51 ng/L (0-10) H 06/07/24 23:50 Delta Troponin T -0.49 ABS# (0-10) L 06/07/24 23:50 Troponin T Hi Sens 6Hr 49.72 ng/L (0-10) H 06/08/24 04:33 Troponin T Hi Sens 6Hr Delta -4.28 ng/L (0-12) L 06/08/24 04:33 NT-Pro-B Natriuret Pep 2088 pg/mL (0-450) H 06/09/24 06:12 Total Protein 6.6 g/dL (6.6-8.7) 06/21/24 04:50 Albumin 5.3 g/dL (3.5-5.2) H 06/21/24 04:50 Globulin 1.3 g/dL (1.3-4.6) 06/21/24 04:50 Hvxod-8-Wcvvugrtb 0.4 g/dL (0.2-0.3) H 06/12/24 15:05 Kyeik-8-Nrevsmuys 0.7 g/dL (0.5-0.9) 06/12/24 15:05 Xmua-8-Jfdxioht 0.5 g/dL (0.4-0.6) 06/12/24 15:05 Jgvl-5-Chadqnsj 0.4 g/dL (0.2-0.5) 06/12/24 15:05 Gamma Globulins 0.8 g/dL (0.8-1.7) 06/12/24 15:05 Abnorm Protein Band 1 Not Reportable 06/12/24 15:05 Vitamin B12 > 2000 pg/mL (232-1245) H 06/07/24 23:50 25-OH Vitamin D Total 45 ng/mL (30-100) 06/13/24 04:12 Procalcitonin 0.11 ng/mL (0-0.5) 06/14/24 03:34 TSH 4.14 uIU/mL (0.27-4.20) 06/19/24 05:04 Free T4 1.06 ng/dL (0.82-1.77) 06/19/24 05:04 PTH Intact 41.5 pg/mL (15-65) 06/13/24 04:12 Calcium (PTH Intact) 9.5 mg/dL (8.5-10.5) 06/13/24 04:12 Random Cortisol 17.01 ug/dL (2.47-19.5) 06/17/24 15:12 Urine Color Yellow (Yellow) 06/12/24 12:59 Urine Appearance Cloudy (CLEAR) A 06/12/24 12:59 Urine pH 5 (5-7) 06/12/24 12:59 Ur Specific [place] 1.020 (1.005-1.030) 06/12/24 12:59 Urine Protein 1+ (Negative) H 06/12/24 12:59 Urine Glucose (UA) Norm (Normal) 06/12/24 12:59 Urine Ketones Negative (Negative) 06/12/24 12:59 Urine Blood 3+ (Negative) H 06/12/24 12:59 Urine Nitrate Negative (Negative) 06/12/24 12:59 Urine Bilirubin 1+ (Negative) H 06/12/24 12:59 Urine Urobilinogen 1 mg/dL (Negative) H 06/12/24 12:59 Ur Leukocyte Esterase 2+ (Negative) H 06/12/24 12:59 Urine RBC 50-80 /hpf (0-2) H 06/12/24 12:59 Urine WBC 25-40 /hpf (0-5) H 06/12/24 12:59 Ur Squamous Epith Cells 5-10 /hpf (0-5) H 06/12/24 12:59 Amorphous Sediment Not Reportable 06/12/24 12:59 Urine Bacteria 2+ /hpf (NONE) H 06/12/24 12:59 Ur Random Microalbumin > 40 ug/dL (0-20) H 06/17/24 06:05 U Random Total Protein > 20 mg/dL 06/17/24 06:05 Ur Random Sodium 12 mmol/L 06/12/24 12:59 Ur Random Potassium 48 mmol/L 06/12/24 12:59 Ur Random Chloride 37 mmol/L 06/12/24 12:59 Urine Creatinine 72 mg/dL (28-217) 06/17/24 06:05 Urine Creatinine Cancelled 06/17/24 06:05 Microalb/Creat Ratio 556 mg/dL (0-20) H 06/17/24 06:05 U Abnormal Prot Band 2 Not Reportable 06/12/24 15:05 U Abnormal Prot Band 3 Not Reportable 06/12/24 15:05 Pro Electrophoresis Int See note 06/12/24 15:05 Serum Immunofixation Normal pattern. 06/12/24 15:05 TIGRE Screen Negative (NEGATIVE) 06/12/24 15:05 ANCA Screen Negative (NEGATIVE) 06/15/24 03:20 ANCA Titer Not Reportable 06/15/24 03:20 Glomerular Base Mem IgG <1.0 AI 06/15/24 03:20 Complement C3 108 mg/dL (90-180) 06/12/24 15:05 Complement C4 14 mg/dL (10-40) 06/12/24 15:05 Free [place] Light Chains 68.1 mg/L (3.3-19.4) H 06/12/24 15:05 Free Lambda Light Chain 30.9 mg/L (5.7-26.3) H 06/12/24 15:05 Free [place]/Lambda Ratio 2.20 (0.26-1.65) H 06/12/24 15:05 C. difficile (PCR) Negative (Negative) 06/20/24 05:45 Coronavirus (PCR) Negative (Negative) 06/10/24 21:51 Hep Bs Antigen Non-reactive (Nonreactive) 06/18/24 03:45 Hep Bs Antibody < 3.5 (11.5-1000) L 06/18/24 03:45 Hep B Core Total Ab Non-reactive (Nonreactive) 06/15/24 03:20 Hepatitis C Antibody Non-reactive (Nonreactive) 06/15/24 03:20 Influenza A (PCR) Negative (Negative) 06/10/24 21:51 Influenza Type B (PCR) Negative (Negative) 06/10/24 21:51 RSV (PCR) Negative (Negative) 06/10/24 21:51 Anti-Streptolysin O Ab 59 IU/mL (<200) 06/12/24 15:05 Vitals Last Vital Signs Temp 99.2 F 06/21/24 15:30 Pulse 76 06/22/24 07:44 Resp 20 H 06/22/24 07:15 BP 124/55 06/21/24 15:30 Pulse Ox 95 06/22/24 07:44 O2 Del Method BiPAP 06/22/24 07:15 O2 Flow Rate 2.5 06/19/24 00:00 FiO2 28 06/22/24 07:44 Discharge Plan Discharge Patient Disposition: Home Condition: Stable Prescriptions: Continued fexofenadine [Anat Allergy] 60 mg tablet 60 mg PO DAILY metoprolol tartrate 25 mg tablet 25 mg PO .AM and prn diltiazem HCl 60 mg tablet 60 mg PO TID 90 Days Qty: 270 3RF montelukast 10 mg tablet See Rx Instructions .ROUTE .COMPLEX Qty: 90 1RF Dose Instruction: TAKE 1 TABLET BY MOUTH DAILY Rx Instructions: TAKE 1 TABLET BY MOUTH DAILY tramadol 50 mg tablet 50 mg PO BID PRN (Reason: pain) Qty: 60 5RF propafenone 150 mg tablet See Rx Instructions .ROUTE .COMPLEX Qty: 270 0RF Dose Instruction: TAKE 1 TABLET BY MOUTH THREE TIMES DAILY Rx Instructions: TAKE 1 TABLET BY MOUTH THREE TIMES DAILY ferrous sulfate 325 mg (65 mg iron) tablet 325 mg PO DAILY Qty: 90 1RF red yeast rice 600 mg Capsule 600 mg PO BID Rx Instructions: give with meal/snack No Action bumetanide 1 mg tablet 1 mg PO DAILY Qty: 90 0RF Discharge Orders: Discharge Order (Routine); Ordered 06/22/24 Ordered By: Chandler Monique Referrals: Princess Grande MD [Primary Care Provider] - 06/16/24 2:00 pm Discharge Diet: Cardiac and Low Salt Discharge Activity: Resume usual activity and Increase activity as tolerated Patient Instructions: Acute Kidney Injury (DC), Pleural Effusion (DC), CHF Stoplight, Opioid Safety Activity Restrictions/Additional Instructions: Restrict fluid intake to less than 1500 cc, salt intake to less than 2 g daily. Advised to check his weight daily at home. Is advised that weight today would be the dry weight and if body weight increases by around 3 pounds, patient is to take an extra dose of Bumex daily till body weight comes down to weight today. If not able to come down to dry body weight in 1 week, then is to call cardiology office for further recommendations. Patient was counseled in detail to take medications regularly as prescribed. Please check your kidney functions again with a primary care doctor within next 2 weeks. Please wear lymphedema wraps daily. Discharge Attestations Time Spent in Discharge Care*: greater than 30 min Specific Discharge Activities: educating and/or supporting family/caregiver, discussing with pcp/other providers, discussing with cyanide case hardener/social workers/dc planners, documenting/other paperwork and evaluating patie nt/reviewing data Status at Discharge: Cognitive status at discharge: severely impaired cognition , Behavioral status at discharge: cooperative , Functional status at discharge: bed bound , Overall status at discharge: patient has a new baseline Quality Metrics Clinical Quality Measures [ No reported AMI, CVA or VTE this stay] Coding Level of Care Code 24824 Total time (in minutes) for Discharge: 60 Diagnoses BENJAMIN (acute kidney injury) N17.9
--- NOTE | 2024-06-22 14:01 | P.HP_ITS ---
Providers/Chief Complaint 2 Admitting Physician: Margo Arizmendi MD Primary Care Provider: Princess Grande MD Chief Complaint: WEAKNESS History of Present Illness Yadira Krishnan is a 83 year old female with past medical history of atrial fibrillation, moderate MR, CKD, wheelchair-bound was admitted to the hospital on 06/08. During hospitalization she developed altered mental status with somnolence along with BENJAMIN on CKD, hepatorenal syndrome, hyperammonemia not improving with maximum treatment, trial of hemodialysis. Multiple goals of care discussions were done and patient was transitioned to inpatient hospice. She has been admitted for further management as per goals of care under inpatient hospice. Review of Systems 2 General: Reports: ROS unobtainable due to mental status Medications/Allergies Home Medications ?Medication ?Instructions ?Recorded ?Confirmed ?Last Taken ?Type fexofenadine 60 mg tablet (Anat 60 mg PO DAILY 07/3006/08/24 03/03/24 History Allergy) red yeast rice 600 mg capsule 600 mg PO BID 09/13/23 0 06/08/24 03/03/24 History diltiazem HCl 60 mg tablet 60 mg PO TID 90 days #270 t abs 12/04/23 06/08/24 03/03/24 Rx metoprolol tartrate 25 mg tablet 25 mg PO .AM and prn 12/24/23 06/08/24 03/03/24 History montelukast 10 mg tablet See Rx Instructions .Route 1 05/26/23 06/08/24 Unknown Rx .COMPLEX #90 tabs tramadol 50 mg tablet 50 mg PO BID PRN pain #60 ta bs 04/25/24 06/08/24 Unknown Rx ferrous sulfate 325 mg (65 mg 325 mg PO DAILY #90 tabs 06/03/24 06/08/24 Unknown Rx iron) tablet propafenone 150 mg tablet See Rx Instructions .Route 0 06/03/24 06/08/24 Unknown Rx .COMPLEX #270 tabs bumetanide 1 mg tablet 1 mg PO DAILY for swelling i nstead 06/10/24 Unknown Rx of furosemide #90 tabs Allergies Allergy/AdvReac Type Severity Reaction Status Date / Time No Known Allergies Allergy Verified 06/08/24 16:49 PFSH Acute 2 PFSH: Medical History (Updated 06/17/24 @ 17:26 by Chandler Monique MD) Dyslipidemia Benign essential HTN Lower GI bleed History of 2019 novel coronavirus disease (COVID-19) Sick sinus syndrome Varicose veins of bilateral lower extremities with pain CHF (congestive heart failure) last echocardiogram 11/2016, LVEF 65%, no valvular abnormality. Hyperlipidemia HTN (hypertension) Osteoarthritis Aortic valve stenosis Anxiety Bradycardia by electrocardiogram Hypertension Chronic atrial fibrillation Hypercholesteremia Surgical History (Updated 06/17/24 @ 17:17 by Chandler Monique MD) Hx of colonoscopy History of colon surgery Resection of colon with removal of tumor for cancer - 05/30/2022 @ [facility] by Dr. Kingsley S/P placement of cardiac pacemaker Hx of cataract extraction Hx of cholecystectomy Family History Father CAD (coronary artery disease) Mother Cancer Lung Grandmother Diabetes Denies family history of Clotting disorder Dementia Hyperlipidemia Psychiatric illness Chronic kidney disease (CKD) Suicide Anesthesia complication Bleeding disorder Lung disease Hypertension Stroke Social History Smoking and tobacco/nicotine status: never used tobacco/nicotine Alcohol intake: never Substance/Drug Use: never Vitals/I&O/Wt Last Vital Signs Temp 99.2 F 06/21/24 15:30 Pulse 76 06/22/24 07:44 Resp 20 H 06/22/24 07:15 BP 124/55 06/21/24 15:30 Pulse Ox 95 06/22/24 07:44 O2 Del Method BiPAP 06/22/24 07:15 O2 Flow Rate 2.5 06/19/24 00:00 FiO2 28 06/22/24 07:44 Weight last 48 hrs Weight 58.513 kg Weight 128.2 kg Physical Exam 2 Narrative: General: Somnolent, GCS E1 M1 V1, occasionally gasping for air HEENT: PERRLA, pupils bilaterally equal and reactive Chest: Bilateral bronchial breath sounds CVS: S1-S2 regular, no murmurs, no tachycardia, no gallops, no rubs Abdomen: Soft, bowel sounds sluggish Extremity: Bilateral edema 2+ all lower limb. Lymphedema present Urinary Catheter Management: García: Cath Placed During This Visit: yes Reason for Continuing Indwelling Catheter: Accurate Measurement of Urinary Output in Critically Ill Patients Urinary Catheter Date of Insertion: 06/08/24 Urinary Catheter Time of Insertion: 01:19 Data 06/21/24 04:50 06/21/24 04:50 Micro: Microbiology 06/17/24 12:05 Blood Culture - Final Blood NO GROWTH AFTER 5 DAYS 06/17/24 10:30 Blood Culture - Final Blood NO GROWTH AFTER 5 DAYS A&P PDMP PDMP Reviewed: Not Reviewed Attestations 2 Medical Necessity Statement*: requires admission for inpatient hospice. Coding Level of Care Code Acute Code for g Hernando
[2024-06-22] MEDS: nystatin powder 15 gm Btl 1 APPLIC TOPICAL (15:06)
[2024-06-23] MEDS: morphine 4 mg/mL SDV 1 mL IVP (00:54)
== END 2024-06-21 17:40 | disposition hospice, inpatient (51) | DRG 291 ==
LOC: ER 06-08 00:02 → CSU 06-08 00:41 → MEDSURG 06-10 19:51 → ICU 06-16 21:28 → MEDSURG 06-18 17:14
PROVIDERS: Family Medicine; Hospitalist; Internal Medicine Nephrology; Admitting Provider Internal Medicine; Emergency Provider Nurse Practitioner; PCP Family Medicine; Visit Provider Student in an Organized Health Care Education/Training Program
DX: I13.0 Hypertensive heart and chronic kidney disease with heart failure and stage 1 through stage 4 chronic kidney disease, or unspecified chronic kidney disease (principal); G93.41 Metabolic encephalopathy; I50.33 Acute on chronic diastolic (congestive) heart failure; K76.7 Hepatorenal syndrome; N17.9 Acute kidney failure, unspecified; I48.20 Chronic atrial fibrillation, unspecified; E87.29 Other acidosis; E72.20 Disorder of urea cycle metabolism, unspecified; N39.0 Urinary tract infection, site not specified; I49.5 Sick sinus syndrome; D50.9 Iron deficiency anemia, unspecified; I27.20 Pulmonary hypertension, unspecified; Z51.5 Encounter for palliative care; I35.0 Nonrheumatic aortic (valve) stenosis; I83.819 Varicose veins of unspecified lower extremity with pain; I73.9 Peripheral vascular disease, unspecified; K76.82 Hepatic encephalopathy; B95.2 Enterococcus as the cause of diseases classified elsewhere; R34 Anuria and oliguria; E16.2 Hypoglycemia, unspecified; R68.0 Hypothermia, not associated with low environmental temperature; Z85.038 Personal history of other malignant neoplasm of large intestine; Z90.49 Acquired absence of other specified parts of digestive tract; Z95.0 Presence of cardiac pacemaker; Z99.3 Dependence on wheelchair
CPT/HCPCS: 36415; 36416; 36573; 36592; 36600; 51702; 70450; 71045; 71046; 76705; 76770; 80048; 80051; 80053; 81001; 82044; 82140; 82306; 82310; 82330; 82436; 82533; 82550; 82607; 82652; 82728; 82803; 82805; 82962; 83036; 83520; 83540; 83550; 83735; 83880; 83883; 83970; 84100; 84133; 84145; 84155; 84156; 84165; 84300; 84439; 84443; 84484; 84550; 85025; 85610; 86036; 86038; 86060; 86160; 86334; 86705; 86706; 86803; 87040; 87077; 87086; 87186; 87340; 87493; 87637; 90935; 92507; 92523; 92526; 92610; 93005; 93306; 93970; 93971; 94640; 94660; 96372; 96374; 96376; 97110; 97124; 97161; 97167; 97530; 99285; G0378; J0290; J1610; J1644; J1940; J2060; J2270; J2470; J2543; J2919; J3490; J7120; J7613; J7614; J7626; J7644; J7799; P9046; P9047; Q3014

== ENCOUNTER 2024-06-21 17:41 | Inpatient (IN) | payer OTHER, MEDICARE, SELFPAY ==
[2024-06-23 08:45] VITALS: RESP 12
[2024-06-23] MEDS: morphine 4 mg/mL SDV 1 mL IVP ×3 (08:45→21:19)
--- OUTSIDE RECORDS SUMMARY | 2024-06-23 09:28 | XMS_ITS | Clinical Summary ---
[facility] Address [address] Attn: Epic Prelude ADT OSIEL CASON [id number] Care Team Providers Care Geospatial Technician Name Role Phone Unavailable Primary Care Provider Unavailabl e Allergies No known active allergies Active Problems Problem Noted Date Diagnosed Date Obesity 09/16/2010 Back pain, chronic 09/16/2010 Hyperlipidemia 03/09/2009 Osteoporosis 03/09/2009 HTN (hypertension) 03/09/2009 Immunizations Immunization Administration Dates Next Due (PNEUMOVAX 23)(50 YRS UP) PN EUMOCOCCAL POLYSACCHARIDE (PPV23) 0.5 ML, IM 03/09/2009 Influenza Seasonal Unspecified Formulation IM Social History Tobacco Use Types Packs/Day Years Used Date Smoking Tobacco: Never Smokeless Tobacco: Never Alcohol Use Standard Drinks/Week Comments No 0 (1 standard drink = 0.6 oz pur e alcohol) Comments Unknown Sex and Gender Information Value Date Recorded Sex Assigned at Not on file 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
--- OUTSIDE RECORDS SUMMARY | 2024-06-23 09:28 | XMS_ITS | Clinical Summary ---
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 empty stomach before other meds,with 8oz of water, stay upright 30 min 4 Tab 11 03/09/2009 Active ibuprofen (MOTRIN) 600 mg Oral tabletIndicatio ns:Arthritis Take 1 Tab by mouth 2 times daily. 180 Tab 4 12/22/2009 Active lisinopril-hydr ochlorothiazide (ZESTORETIC) 20-25 mg Oral tabletIndicatio ns:HTN (hypertension) Take 1 Tab by mouth daily. 90 Tab 3 06/02/2010 Active rosuvastatin (CRESTOR) 20 mg Oral tabletIndicatio ns:Hyperlipidem ia Take 1 Tab by mouth daily at bedtime. 90 Tab 3 06/02/2010 Active Active Problems Problem Noted Date Diagnosed Date Obesity 09/16/2010 Back pain, chronic 09/16/2010 HTN (hypertension) 03/09/2009 Hyperlipidemia 03/09/2009 Osteoporosis 03/09/2009 Immunizations Immunization Administration Dates Next Due (PNEUMOVAX 23)(50 YRS UP) PN EUMOCOCCAL POLYSACCHARIDE (PPV23) 0.5 ML, IM 03/09/2009 Influenza Seasonal Unspecified Formulation IM Social History Tobacco Use Types Packs/Day Years Used Date Smoking Tobacco: Never Smokeless Tobacco: Never Alcohol Use Standard Drinks/Week Comments No 0 (1 standard drink = 0.6 oz pur e alcohol) Comments No Sex and Gender Information Value Date Recorded Sex Assigned at Not on file Legal Sex Female 7:26 AM [employer] Gender Identity Not on file Sexual Orientation Not on file Last Filed Vital Signs Vital Sign Reading Time Taken Comments Blood Pressure 118/78 09/16/2010 3:12 PM CDT Pulse 88 09/16/2010 3:12 PM CDT Temperature 36.2 ??C (97.2 ??F) 09/16/2010 3:12 PM CD T Respiratory Rate 22 09/16/2010 3:12 PM CDT Oxygen Saturation 98% 09/16/2010 3:12 PM CDT Inhaled Oxygen Concentration - - Weight 126.1 kg (278 lb) 09/16/2010 3:12 PM CDT Height 157.5 cm (5' 2 ) 09/16/2010 3:12 PM CDT Body Mass Index 50.85 09/16/2010 3:12 PM CDT Plan of Treatment Health Maintenance Due Date Last Done Comments DTAP/TDAP/TD VACCINES (1 - Tdap) 1957 ZOSTER VACCINE (1 of 2) 1988 PNEUMOCOCCAL VACCINE 65+ YEA RS (2 of 2 - PCV) 03/09/2010 03/09/2009 RSV VACCINE (60+ or ) (1 - 1-dose 75+ series) 2013 INFLUENZA VACCINE (#1) 2023 03/09/2010 COLORECTAL SCREENING Discontinued 05/25/2009 Colorectal Cancer Screening Discontinued OSTEOPOROSIS SCREENING Addressed 05/25/2009 Overr idden with the intention of not completing the topic FIT-DNA Q 3 years Discontinued FIT/FOBT Q 1 year Discontinued Flex Sig/CT Colonography Q 5 years Discontinued Insurance MEDICARE PART A AND B [employer]
[2024-06-23 09:41] VITALS: BMI 23.6
--- NOTE | 2024-06-23 09:43 | PC.SOCIAL ---
IMM Update pg 2 of IMM not updated as patient as patient has been admitted to [facility] hospice w/ Adriana Awad on 06/21/24 @ [id number]
[2024-06-23 17:53] VITALS: RESP 12
[2024-06-23 21:19] VITALS: RESP 12
[2024-06-24 00:55] VITALS: RESP 8
[2024-06-24] MEDS: morphine 4 mg/mL SDV 1 mL IVP ×2 (00:55→04:37)
[2024-06-24 04:37] VITALS: RESP 16
[2024-06-24 06:00] VITALS: BMI 23.6
--- NOTE | 2024-06-24 10:25 | PC.NURSE ---
Pt heart rate began to decrease at 1010 and read asystole on telemetry at 1013. CHAPO Perez and myself went into the room and listened for heart tones and heard none. Pronounced at 1013 with family at bedside. Pacemaker spikes were still reading on telemetry so used magnet to turn off pacemaker.
--- NOTE | 2024-06-24 11:54 | PC.NURSE ---
All lines removed and pt cleaned.
--- NOTE | 2024-06-24 12:24 | PM.DDS ---
Discharge Providers DDS Date of Admission: 06/21/24 17:41 Date Summary Completed: 06/24/24 Attending Provider at Admission: Chandler Monique MD Attending Provider at Discharge: Junaid Jay MD Primary Care Provider: Princess Grande MD Reason for Visit Reason for Visit ADMIT TO HOSPICE CARE Summary Summary Summary: Yadira Krishnan is a 83 year old female with past medical history of atrial fibrillation, moderate MR, CKD, wheelchair-bound was admitted to the hospital on 06/08 and treated for altered mental status with somnolence along, BENJAMIN on CKD, hepatorenal syndrome, and hyperammonemia. She failed to respond to treatment. Goals of care was discussed with patient transition to hospice. She was admitted to inpatient hospice. She was treated with comfort care measures. Family is bedside and supportive. Patient on 06/24/2024 at 1013 secondary to complications from hepatorenal syndrome.. Additional Data Family: at bedside Attending/PCP notified?: I am attending Was code activated?: No Advance directives?: No Hospice patient?: Yes Discharge Plan Discharge Patient Disposition: Condition: Stable Prescriptions: No Action fexofenadine [Anat Allergy] 60 mg tablet 60 mg PO DAILY metoprolol tartrate 25 mg tablet 25 mg PO .AM and prn diltiazem HCl 60 mg tablet 60 mg PO TID 90 Days Qty: 270 3RF tramadol 50 mg tablet 50 mg PO BID PRN (Reason: pain) Qty: 60 5RF ferrous sulfate 325 mg (65 mg iron) tablet 325 mg PO DAILY Qty: 90 1RF bumetanide 1 mg tablet 1 mg PO DAILY Qty: 90 0RF red yeast rice 600 mg Capsule 600 mg PO BID Rx Instructions: give with meal/snack propafenone 150 mg tablet 150 mg PO TID Rx Instructions: TAKE 1 TABLET BY MOUTH THREE TIMES DAILY montelukast 10 mg tablet 10 mg PO DAILY Rx Instructions: TAKE 1 TABLET BY MOUTH DAILY Patient Instructions: Opioid Safety DS Attestations Time Spent in /Discharge Care*: greater than 30 min Quality - AMI: AMI present?: No Quality - Stroke: CVA present?: No Quality - VTE: VTE present?: No Coding Level of Care Code Acute Code for Chg Fwd
--- NOTE | 2024-06-24 12:44 | PC.NURSE ---
[facility] picked pt up at 1245.
[2024-06-24 12:45] VITALS: BP 0/0; PULSE 0; O2SAT 0
== END 2024-06-24 12:45 | disposition expired | DRG 951 ==
PROVIDERS: Admitting Provider Student in an Organized Health Care Education/Training Program; PCP Family Medicine; Visit Provider Internal Medicine
DX: Z51.5 Encounter for palliative care (principal); K76.7 Hepatorenal syndrome; N17.9 Acute kidney failure, unspecified; E72.20 Disorder of urea cycle metabolism, unspecified; Z66 Do not resuscitate; I34.0 Nonrheumatic mitral (valve) insufficiency; I48.91 Unspecified atrial fibrillation; N18.9 Chronic kidney disease, unspecified; Z99.3 Dependence on wheelchair; Z79.891 Long term (current) use of opiate analgesic
CPT/HCPCS: J2270